=== PATIENT | male | born 1965 ===

== ENCOUNTER → 2020-09-06 15:29 | Outpatient (BNVA) | payer MEDICAID, SELFPAY | PROVIDERS: PCP Internal Medicine; Referring Provider Internal Medicine; Visit Provider Nurse Practitioner Family | DX: Z76.89 Persons encountering health services in other specified circumstances (principal) ==

== ENCOUNTER → 2020-10-07 11:03 | Outpatient (BNVA) | payer MEDICAID, SELFPAY | PROVIDERS: PCP Internal Medicine; Visit Provider Nurse Practitioner Family | DX: Z76.89 Persons encountering health services in other specified circumstances (principal) ==

== ENCOUNTER → 2020-11-03 11:01 | Outpatient (BNVA) | payer MEDICAID, SELFPAY | PROVIDERS: PCP Internal Medicine; Visit Provider Internal Medicine | DX: Z01.810 Encounter for preprocedural cardiovascular examination (principal); R06.02 Shortness of breath | CPT/HCPCS: 93005; 99202 ==

== ENCOUNTER 2020-11-17 09:16 | Outpatient (REF) | payer MEDICAID, SELFPAY ==
--- NOTE | 2020-11-17 | US_ITS ---
EXAMINATION: US ABDOMEN LIMITED CLINICAL INFORMATION: Chronic viral Hepatitis C. Hepatic fibrosis. COMPARISON: US abdomen 06/30/2020. CT abdomen and pelvis 05/04/2019. TECHNIQUE: Real-time imaging of the right upper quadrant abdominal viscera. FINDINGS: PANCREAS: Mostly obscured. LIVER: Liver echotexture is normal. The liver is normal in size and contour. No focal hepatic lesion. There is no intrahepatic biliary duct dilatation seen. GALLBLADDER: The gallbladder is physiologically distended. There are gallstones in the neck of the gallbladder.. No evidence of gallbladder wall thickening or pericholecystic fluid. COMMON BILE DUCT: Normal in caliber measuring 0.5 cm in diameter. RIGHT KIDNEY: Normal. No hydronephrosis. No renal calculi or focal parenchymal lesions. The kidney measures 10.7 cm in maximum dimension. FREE FLUID: None. US/US abdomen limited IMPRESSION: Normal-appearing liver. No focal liver lesion or evidence of cirrhosis seen. Gallstones.
== END 2020-11-17 09:17 | disposition home or self-care (01) ==
LOC: HO.US 09:16
PROVIDERS: PCP Internal Medicine; Visit Provider Family Medicine
DX: B18.2 Chronic viral hepatitis C (principal); K74.00 Hepatic fibrosis, unspecified
CPT/HCPCS: 76705

== ENCOUNTER → 2020-12-03 08:21 | Outpatient (REF) | payer MEDICAID, SELFPAY ==
--- NOTE | ~2020-12-03 | NM_ITS ---
Myocardial perfusion study Indication: Shortness of breath evaluate for myocardial ischemia Technique: The patient was brought in for a Lexiscan perfusion study on 12/03/2020. Patient performed low-level exercise and was injected 0.4 mg of Lexiscan intravenously. Within a minute of injection, 45 mCi of sestamibi was given intravenously. Images were obtained using the SPECT gamma camera interlaced with the gating device. Images were obtained in supine position. Resting perfusion study was performed on 12/07/2020. Patient was administered 45 mCi of sestamibi intravenously at rest. Images were then obtained in supine position. Images obtained with and without CT attenuation. Total DLP 114 mGy-cm. Images were processed with the software and compared side to side in short axis, horizontal long axis and vertical long axis views. Findings: The stress perfusion study showed non attenuated images show moderately reduced uptake in the inferoapical uptake in the mid inferior wall of the LV myocardium. Attenuated corrected images show mildly reduced uptake in the septum of the LV myocardium.. The gated study shows low normal LV systolic function with calculated LVEF of 53%. LV cavity is mildly dilated size. The gated study shows normal wall thickening and contraction of segments. Resting study shows improved uptake in the inferoapical wall of the LV myocardium. This is on non attenuated images. Attenuation corrected images show improved uptake in the septum of the LV.. Gating at rest reveals normal systolic wall motion with ejection fraction at 56%. The findings are consistent with equivocal finding with mild septal ischemia attenuated corrected images. NM/NM jayro perf SPECT rest & str Impression: 1. Myocardial perfusion imaging study shows possible septal ischemia 2. Gated LVEF is 56% 3. Transient ischemic dilatation present EKG is nondiagnostic for ischemia
--- NOTE | 2020-12-03 08:25 | CA_ITS ---
Transthoracic Echocardiogram Patient (Last, First, Middle): Dru Dorsey, Gender: Male Date of : 1965 Age: 55 Procedure Date: 12/03/2020 Procedure Type: Transthoracic Echocardiogram Location: OP Height: 172.72 cm Weight: 120.2 kg BSA: 2.30 m2 Heart Rate: bpm BP: 128 / 80 mmHg [employer] Att[employer]: Referring MD: Rivera Jaime MD Symptoms: I25.10 - Atherosclerotic heart disease of [place] coronary artery without angina pectoris Study Quality: Technically Difficult ECG Rhythm: Sinus Conclusions: - 1. Normal LV systolic function with mild LVH with grade 1 diastolic dysfunction 2. Normal cardiac valvular Doppler 3. Normal RV systolic pressure 4. No gross pericardial effusion Findings Left Ventricle Normal left ventricular size and systolic function. There is mildly increased left ventricular wall thickness. The visually estimated ejection fraction is between 60-65%. Regional wall motion abnormalities can not be excluded due to suboptimal endocardial definition. Spectral Doppler is indicative of an impaired relaxation filling pattern. E/E prime ratio is <8, consistent with normal filling pressures. Evidence suggests grade I (mild) diastolic dysfunction. Right Ventricle The right ventricle was not well visualized. Atria The left atrium is likely dilated. There is lipomatous hypertrophy of the interatrial septum. There is no evidence of interatrial shunt. The right atrium was not well visualized. Aortic Valve The aortic valve was not well visualized. There is no aortic valve stenosis. There is no aortic valve regurgitation. Mitral Valve Likely normal mitral valve structure and function. There is trace mitral valve regurgitation. There is no mitral valve stenosis. Pulmonic Valve The pulmonic valve was not well visualized. Tricuspid Valve Likely normal tricuspid valve structure and function. There is trace tricuspid valve regurgitation. The right ventricular systolic pressure is 22 mmHg. Normal right atrial pressure. There is no evidence of pulmonary hypertension. Great Vessels All visible segments of the aorta are normal in size. The pulmonary artery was not well visualized. Venous The inferior vena cava is normal in size and collapses greater than 50% with inspiration. Pericardium/Pleural There is no evidence of pericardial effusion. Prior Study Comparison No significant change compared to prior study dated: 02/19/2020. Measurements 2D Linear Measurements IVSd: 1.38 0.6-0.9/0.6-1.0 cm LVIDd: 5.17 3.9-5.3/4.2-5.9 cm LVIDd Index: 2.25 2.4-3.2/2.2-3.1 cm/m2 LVIDs: 3.12 2.0-3.6 cm LVPWd: 1.37 0.7-1.1 cm Ao Root: 3.30 2.1-3.5 cm LA Diam: 4.20 2.7-3.8/3.0-4.0 cm LAIDs Index: 1.83 1.5-2.3 cm/m2 LV Mass: 372.95 67-162/88-224 g LV Mass Index: 162.15 43-95/49-115 g/m2 LVOT Diam: 2.50 3.0+(-)1.3 cm 2D Systolic Function EF 4C: 61.00 >55% EF 2C: 63.00 >55% EF BiP: 61.90 >55% Mitral Valve MV Pk E: 0.61 MV PK A: 0.64 MV Decel Time: 254.00 E/A: 1.00 E'Lateral: 11.80 E'Medial: 8.41 E/E' Med: 7.20 E/E' Lat: 5.10 PHT: 74.00 MVA PHT: 2.97 Decel [place]: 2.39 Aortic Valve AoV Pk [place]: 1.66 AoV Mn [place]: 1.23 AoV VTI: 0.44 AoV Pk Grad: 11.00 Aov Mn Grad: 7.00 DUSTIN Cont.VTI: 2.36 LVOT LVOT Pk [place]: 0.93 LVOT Mn [place]: 0.72 LVOT VTI: 0.21 LVOT Pk Grad: 3.00 LVOT Mn Grad: 2.00 LVOT Diam: 2.50 LVOT Area: 4.91 Diastolic Function MV Pk E: 0.61 MV Pk A: 0.64 E/A: 1.00 E'Medial: 8.41 E/E' Med: 7.20 E' Laterial: 11.80 E/E' Lat: 5.10 Tricuspid Valve TR Pk Arn[place]fo: 2.17 TR Pk Grad: 19.00 RA Press: 3.00 RVSP: 22.00 Great Vessels Aorta Ao Root-2D: 3.30 2.0-3.7 cm Pulmonary Valve PV Pk Arnulfo: 1.22 Peak PV Grad: 6.00 Updated in Other Vendor System with Status of Final Tom Caba MD electronically signed on 12/04/2020 11:04:36 AM with status of Final
--- NOTE | 2020-12-03 08:25 | CA_ITS ---
Acquisition Time: 2020-12-03 11:25:25 Total Exercise Time: 00:02:00 Test Indications: Dyspnea Medications: GABAPENTIN HYDROXAZINE METHADONE TRAZADONE Protocol: LEXISCAN Max HR: 071 BPM 43% of Pred: 165 BPM Max BP: 130/082 mmHG Max Work Load: 1.0 METS Pharmacological stress test using Lexiscan while sitting and kicking his feeet. Pt tolerated well, denies any anginal sx. EKG without any arrhythmias, non-diagnostic for ischemia. Nuclear images to follow. Normotensive response to test. Test reviewed with Dr Caba. Referred By: Rivera Jaime Overread By: Luna Medina
== END ==
LOC: HO.CARD 08:21
PROVIDERS: Visit Provider Internal Medicine
DX: I25.10 Atherosclerotic heart disease of native coronary artery without angina pectoris (principal); R06.02 Shortness of breath
CPT/HCPCS: 78452; 93017; 93306; A9500; J0280; J2785

== ENCOUNTER → 2020-12-09 10:23 | Outpatient (BNVA) | payer MEDICAID, SELFPAY | PROVIDERS: PCP Internal Medicine; Visit Provider Internal Medicine | DX: Z01.810 Encounter for preprocedural cardiovascular examination (principal); R06.02 Shortness of breath; R94.39 Abnormal result of other cardiovascular function study | CPT/HCPCS: 99212 ==

== ENCOUNTER → 2021-01-17 14:16 | Outpatient (BNVA) | payer MEDICAID, SELFPAY | PROVIDERS: PCP Internal Medicine; Visit Provider Nurse Practitioner Family ==

== ENCOUNTER 2021-02-08 14:48 | Outpatient (REF) | payer MEDICAID, SELFPAY ==
[2021-02-08 17:02] LABS: Anion Gap 12 (12-20); Blood Urea Nitrogen 13 mg/dL (9-16); Calcium 9.7 mg/dL (8.4-10.2); Carbon Dioxide 35 mmol/L (22-29); Chloride 98 mmol/L (96-108); Estimated Glomerular Filt Rate > 60; Glucose Random 79 mg/dL (60-115); Potassium 5.4 mmol/L (3.3-5.1); Sodium 140 mmol/L (135-145)
[2021-02-09 08:14] LABS: HBc Num1 6.33 S/CO (0.00-0.79); Hepatitis A Antibody IgM 0.59 Index (0-0.79); ~HepC Num1 15.03 S/CO (0.00-0.79); ~Hepatitis A Antibody IgM Nonreactive (Nonreactive); ~Hepatitis C Antibody Reactive (Nonreactive)
[2021-02-09 08:33] LABS: Hepatitis B Surface Antigen Negative (Negative); ~Hepatitis B Surface Antibody REACTIVE (Nonreactive)
[2021-02-09 10:53] LABS: Alanine Aminotransferase 12 U/L (0-40); Albumin Level 4.5 g/dL (3.5-5.0); Alkaline Phosphatase 122 U/L (39-117); Aspartate Amino Transferase 19 U/L (5-37); Bilirubin Total 0.4 mg/dL (0.0-1.0); Total Protein 8.2 g/dL (6.5-8.0)
[2021-02-09 11:18] LABS: HBc Num2 5.87 S/CO; HBc Num3 6.23 S/CO; Hepatitis B Core Antibody Reactive (Nonreactive)
[2021-02-09 11:57] LABS: HBS Num1 77.73 mIU/mL (0-7.99); HBsAGNum1 0.26 S/CO (0.00-0.99)
== END 2021-02-08 14:49 | disposition home or self-care (01) ==
LOC: HO.LAB 14:48
PROVIDERS: Internal Medicine; PCP Internal Medicine; Visit Provider Nurse Practitioner Family
DX: K59.00 Constipation, unspecified (principal); R14.0 Abdominal distension (gaseous); B19.20 Unspecified viral hepatitis C without hepatic coma; R94.39 Abnormal result of other cardiovascular function study; F17.210 Nicotine dependence, cigarettes, uncomplicated; Z88.0 Allergy status to penicillin; Z96.643 Presence of artificial hip joint, bilateral
CPT/HCPCS: 36415; 80048; 80053; 86704; 86705; 86706; 86709; 86803; 87340; 99212

== ENCOUNTER → 2021-02-28 10:39 | Outpatient (BNVA) | payer MEDICAID, SELFPAY | PROVIDERS: PCP Internal Medicine; Visit Provider Internal Medicine | DX: Z01.810 Encounter for preprocedural cardiovascular examination (principal); R94.39 Abnormal result of other cardiovascular function study; Q24.5 Malformation of coronary vessels | CPT/HCPCS: 99212 ==

== ENCOUNTER → 2021-03-01 15:11 | Outpatient (BNVA) | payer MEDICAID, SELFPAY | PROVIDERS: PCP Internal Medicine; Visit Provider Nurse Practitioner Family ==

== ENCOUNTER → 2021-03-29 11:27 | Outpatient (BNVA) | payer MEDICAID, SELFPAY | PROVIDERS: PCP Internal Medicine; Visit Provider Nurse Practitioner Family ==

== ENCOUNTER 2022-07-06 09:22 | Outpatient (REF) | payer MEDICAID, SELFPAY ==
--- NOTE | 2022-07-06 | PFT_ITS ---
Forced vital capacity 69%, FEV1 69%, FEV1/FVC ratio is 77. [id number] 63%, and MVV 65%. Post bronchodilator therapy, there is no significant change. Total lung capacity 87%. Residual volume 112%. Diffusion capacity 81%. CONCLUSION: The flow volumes were moderately decreased, but there is no evidence of obstructive airway disorder. The lung volumes are relatively normal and diffusion capacity is normal. Clinical correlation is recommended. MD LOU Frankel/JULIO / [id number]
== END 2022-07-06 09:23 | disposition home or self-care (01) ==
LOC: HO.RESP 09:22
PROVIDERS: PCP Internal Medicine; Visit Provider Internal Medicine
DX: J44.9 Chronic obstructive pulmonary disease, unspecified (principal)
CPT/HCPCS: 94060; 94727; 94729

== ENCOUNTER 2022-09-08 14:14 | Outpatient (REF) | payer MEDICAID, SELFPAY ==
[2022-09-08 14:35] LABS: Hematocrit 40.5 % (42.0-52.0); Mean Corpuscular HGB Conc 32.1 g/dl (31.0-36.0); Mean Corpuscular Hemoglobin 28.9 pg (27.0-33.0); Mean Platelet Volume 9.7 fL (9.4-12.4); Platelet Count 267 X10*3/uL (160-400); Red Cell Distribution Width 14.2 % (11.0-16.0); White Blood Count 8.8 X10*3/uL (4.8-10.8)
[2022-09-08 15:26] LABS: Alanine Aminotransferase 13 U/L (0-40); Albumin Level 4.5 g/dL (3.5-5.0); Alkaline Phosphatase 77 U/L (39-117); Anion Gap 13 (12-20); Aspartate Amino Transferase 17 U/L (5-37); Bilirubin Total 0.3 mg/dL (0.0-1.0); Blood Urea Nitrogen 14 mg/dL (9-16); Calcium 10.1 mg/dL (8.4-10.2); Carbon Dioxide 34 mmol/L (22-29); Chloride 101 mmol/L (96-108); Estimated Glomerular Filt Rate > 60; Glucose Random 79 mg/dL (60-115); Lipase 18 U/L (8-78); Sodium 143 mmol/L (135-145); TSH reflex Free T4 1.65 uIU/mL (0.32-4.0); Total Protein 7.7 g/dL (6.5-8.0)
== END 2022-09-08 14:15 | disposition home or self-care (01) ==
LOC: HO.LAB 14:14
PROVIDERS: PCP Internal Medicine; Visit Provider Nurse Practitioner Family
DX: K21.9 Gastro-esophageal reflux disease without esophagitis (principal); R10.9 Unspecified abdominal pain; K59.00 Constipation, unspecified
CPT/HCPCS: 36415; 80053; 83690; 84443; 85027; 99212

== ENCOUNTER 2022-10-27 14:20 | Outpatient (REF) | payer MEDICAID, SELFPAY ==
--- NOTE | ~2022-10-27 | CT_ITS ---
EXAMINATION: CT CHEST SCREENING CLINICAL INFORMATION: Nicotine dependence. COMPARISON: None. TECHNIQUE: Multidetector volumetric CT imaging of the chest is performed without contrast using low dose technique. Additional 2D coronal and sagittal reformatted images and axial 3D maximum intensity projection (MIP) images are generated on the CT workstation. This CT examination was performed using dose optimization techniques as appropriate, variously including the following: *Automated exposure control *Adjustment of mA and/or kV according to patient size (this includes techniques or standardized protocols for targeted exams where dose is matched to indication/reason for exam; i.e. extremities or head) *Use of iterative reconstruction technique DLP: 85 mGy-cm FINDINGS: LUNGS: The lungs are well-expanded and clear of acute process. There is a 1.1 x 1.2 cm lesion left upper lobe adjacent to the major fissure on axial image 41/9. No additional lung nodules visualized. There is no acute pneumonic process. MEDIASTINUM: The thyroid lobes are symmetrical and normal. The central trachea and the bronchi are widely patent. The heart size and great vessels are normal caliber. No pericardial effusion seen. Small shotty lymph nodes are seen in the mediastinum, the largest pretracheal short axis lymph node measures 6 mm. CORONARY ARTERY CALCIFICATION: Trace coronary artery calcifications are seen. PLEURA: There is no pleural effusion. No pleural mass or thickening. AXILLA: There are small shotty bilateral axillary lymph nodes. UPPER ABDOMEN: Visualized liver, spleen and pancreas appear unremarkable. OSSEOUS STRUCTURES: Bone Windows: Moderate ventral spondylosis throughout mid and lower dorsal spine. CT/CT lung screening IMPRESSION: Left upper lobe 1.2 cm nodule. ASSESSMENT: Lung-RADS category 4A: Suspicious RECOMMENDATION: PET/CT or tissue sampling.
== END 2022-10-27 14:21 | disposition home or self-care (01) ==
LOC: HO.CT 14:20
PROVIDERS: PCP Internal Medicine; Visit Provider Physician Assistant Medical
DX: Z12.2 Encounter for screening for malignant neoplasm of respiratory organs (principal); F17.210 Nicotine dependence, cigarettes, uncomplicated
CPT/HCPCS: 71271; G0296

== ENCOUNTER → 2022-11-24 09:26 | Outpatient (BNVA) | payer MEDICAID, SELFPAY | PROVIDERS: PCP Internal Medicine; Visit Provider Surgery | DX: R91.1 Solitary pulmonary nodule (principal); F17.210 Nicotine dependence, cigarettes, uncomplicated | CPT/HCPCS: 99202 ==

== ENCOUNTER 2022-11-27 14:59 | Outpatient (REF) | payer MEDICAID, SELFPAY ==
--- NOTE | 2022-11-27 17:25 | PFT_ITS ---
Forced vital capacity 64%, FEV1 57%, FEV1/FVC ratio is 69. FEF 25/75 33% and MVV 60%. Post bronchodilator therapy, there is some improvement in FEF 25-75, but not in the major of flow volumes. Total lung capacity 85%. Residual volume 135%. Diffusion capacity 86%. CONCLUSION: Moderately severe obstructive airway disorder with evidence of some air trapping. There is only minimal response to bronchodilator therapy. Clinical correlation is recommended. Joey Velasco MD MSB/MODL / [id number]
== END 2022-11-27 15:00 | disposition home or self-care (01) ==
LOC: HO.RESP 14:59
PROVIDERS: Visit Provider Surgery
DX: R91.1 Solitary pulmonary nodule (principal)
CPT/HCPCS: 94060; 94727; 94729

== ENCOUNTER → 2022-12-05 14:12 | Outpatient (BNVA) | payer MEDICAID, SELFPAY | PROVIDERS: PCP Internal Medicine; Visit Provider Internal Medicine | DX: Z01.810 Encounter for preprocedural cardiovascular examination (principal); I25.10 Atherosclerotic heart disease of native coronary artery without angina pectoris; Q24.5 Malformation of coronary vessels | CPT/HCPCS: 93005; 99212 ==

== ENCOUNTER → 2022-12-22 10:37 | Outpatient (BNVA) | payer MEDICAID, SELFPAY | PROVIDERS: PCP Internal Medicine; Visit Provider Surgery | DX: R91.1 Solitary pulmonary nodule (principal); F17.210 Nicotine dependence, cigarettes, uncomplicated; Z79.891 Long term (current) use of opiate analgesic | CPT/HCPCS: 99212 ==

== ENCOUNTER → 2023-01-16 10:42 | Outpatient (BNVA) | payer MEDICAID, SELFPAY | PROVIDERS: PCP Registered Nurse; Visit Provider Hospitalist | DX: C34.90 Malignant neoplasm of unspecified part of unspecified bronchus or lung (principal); J44.9 Chronic obstructive pulmonary disease, unspecified; R06.02 Shortness of breath; F17.210 Nicotine dependence, cigarettes, uncomplicated; Z79.891 Long term (current) use of opiate analgesic | CPT/HCPCS: 99202 ==

== ENCOUNTER 2023-01-17 15:34 | Emergency (ER) | payer MEDICAID, SELFPAY ==
--- NOTE | ~2023-01-17 | CT_ITS ---
EXAMINATION: CT ANGIOGRAM OF THE CHEST WITH AND WITHOUT CONTRAST (CT PULMONARY ANGIOGRAM FOR PE) CLINICAL INFORMATION: Reason for Exam known lung ca. post op biopsy. 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 Subsequently, multidetector volumetric imaging was performed from the thoracic inlet to below the diaphragms following the administration of 65 mL Omnipaque 350 intravenous contrast. No contrast reaction reported Sagittal, coronal, and MIP oblique sagittal reformatted images were obtained on the CT workstation, uploaded to PACS, and reviewed. This CT examination was performed using dose optimization techniques as appropriate, variously including the following: *Automated exposure control *Adjustment of mA and/or kV according to patient size (this includes techniques or standardized protocols for targeted exams where dose is matched to indication/reason for exam; i.e. extremities or head) *Use of iterative reconstruction technique Total exam dose-length product 622 mGy-cm FINDINGS: QUALITY OF STUDY/CONTRAST BOLUS: Satisfactory. PULMONARY ARTERIES: No central or segmental pulmonary emboli. THORACIC AORTA: No aneurysm or dissection. LUNG: There is small volume of fluid tracking along the left major fissure and around left hilum and the left upper lobe consistent with history of biopsy. There is linear dense material at the left hilum consistent with biopsy. There are scattered groundglass airspace opacities in both upper lobes. There is dependent atelectasis at the left lung base. PLEURA: Small volume left-sided hydropneumothorax. Air in the subcutaneous tissues of the left side of the chest and upper abdomen. Findings consistent with recent lung biopsy. MEDIASTINUM: Normal heart size. Trace pericardial effusion. No hilar or mediastinal lymphadenopathy. No evidence of septal bowing or right heart strain. CORONARY ARTERY CALCIFICATION: None visualized on this study. CHEST WALL/AXILLA: No axillary or internal mammary lymphadenopathy. OSSEOUS STRUCTURES: No acute or suspicious osseous abnormality. UPPER ABDOMEN: Unremarkable. No reflux of contrast into the hepatic veins to suggest elevated right heart pressures. CT/CT angio chest PE protocol IMPRESSION: 1. No evidence of pulmonary embolism. 2. Small volume left-sided hydropneumothorax. Air in the subcutaneous tissues of the left side of the chest and upper abdomen consistent with recent lung biopsy. 3. Small volume of fluid tracking along the left major fissure and around the left hilum. 4. Scattered groundglass airspace opacities in both upper lobes. Dependent atelectasis at left lung base VTE: negative
[2023-01-17 15:47] VITALS: BP 190/92; PULSE 82; O2SAT 92
[2023-01-17 15:57] VITALS: BP 144/80; PULSE 78; RESP 25; TEMP 36.7; O2SAT 93; BMI 46.6
--- NOTE | 2023-01-17 16:11 | ECG_ITS ---
Test Reason : difficulty breathing Blood Pressure : / mmHG Vent. Rate : 077 BPM Atrial Rate : 077 BPM P-R Int : 176 ms QRS Dur : 090 ms QT Int : 414 ms P-R-T Axes : 048 015 026 degrees QTc Int : 468 ms Normal sinus rhythm Normal ECG When compared with ECG of 15-AUG-2019 19:20, No significant change was found Referred By: Esau Ramos Electronically Signed By:LEXIE SHEEHAN
--- NOTE | 2023-01-17 16:14 | ED_ITS ---
HPI - General Adult General Chief complaint: Dyspnea Stated complaint: UNRESPONSIVE,OD Time Seen by Provider: 01/17/23 15:53 Source: patient History of Present Illness HPI narrative: Patient is several days postop from lung biopsy secondary to known lung cancer. He presents today because he went to his PCP office and was having dyspnea with chest pain with hypertension. EMS found patient to have a respiratory rate of 25 with an oxygen saturation of 90. He was given a DuoNeb with some improvement. Patient's main complaint here in the emergency department is pain on the left side of his chest. He states it is stabbing and worse with breathing. He denies fevers or chills. Positive cough but no sputum. She saw his thoracic surgeon yesterday for a postoperative check and there were no issues during that visit. Related Data Home Medications Medication Instructions Recorded Confirmed gabapentin 100 mg capsule 100 mg PO TID 09/06/20 12/22/22 methadone 10 mg/mL oral syringe 90 mg PO DAILY 09/06/20 12/22/22 (FOR ORAL USE ONLY) trazodone 100 mg tablet 100 mg PO BEDTIME PRN 09/06/20 12/22/22 hydroxyzine HCl 50 mg tablet 50 mg PO BID 11/03/20 12/22/22 acetaminophen 325 mg tablet 325 mg PO QID PRN 01/16/23 bupropion HCl 300 mg 24 hr tablet, 300 mg PO QAM 01/16/23 extended release (Wellbutrin XL) docusate sodium 100 mg capsule 100 mg PO BID 01/16/23 duloxetine 60 mg capsule,delayed 60 mg PO DAILY 01/16/23 release famotidine 20 mg tablet 20 mg PO DAILY 01/16/23 nicotine 14 mg/24 hr daily 1 patch transdermal DAILY 01/16/23 transdermal patch oxycodone 5 mg tablet 5 mg PO Q8H PRN 01/16/23 Previous Rx's Medication Instructions Recorded sennosides 8.6 mg tablet 17.2 mg PO BEDTIME #180 tabs 09/08/22 (Evac-U-Gen (sennosides)) rosuvastatin 10 mg tablet (Crestor) 10 mg PO DAILY #90 tabs 12/05/22 fluticasone fur. 200 mcg-umeclid 1 inh inhalation DAILY 30 days #60 01/16/23 62.5 mcg-vilant 25 mcg ea inhalat.powder (Trelegy Ellipta) nicotine (polacrilex) 2 mg gum 2 mg buccal Q2H 30 days #50 ea 01/16/23 (Nicorette) levofloxacin 500 mg tablet 500 mg PO DAILY #10 tabs 01/17/23 Allergies Allergy/AdvReac Type Severity Reaction Status Date / Time Penicillins [PENICILLINS] Allergy Unknown UNKNOWN Verified 01/17/23 15:56 Review of Systems Constitutional: Comments: No fevers or chills Cardiovascular: Comments: Left-sided chest pain as mentioned Respiratory: Comments: Dyspnea with cough Gastrointestinal: Comments: No abdominal pain. No nausea vomiting or diarrhea Genitourinary: Genitourinary: Reports no additional male genitourinary complaints Musculoskeletal: Musculoskeletal: Reports no additional musculoskeletal complaints Neurologic: Comments: No focal weakness PMFSH Past Medical History Medical History (Updated 01/17/23 @ 20:02 by Esau Ramos MD) Asthma-COPD overlap syndrome Depression with anxiety Hepatitis C History of CVA (cerebrovascular accident) (~2008) HLD (hyperlipidemia) Lung cancer Methadone maintenance therapy patient Nicotine dependence, cigarettes, uncomplicated Obesity DA (obstructive sleep apnea) Surgical History History of bilateral hip replacements History of carpal tunnel surgery History of colonoscopy History of esophagogastroduodenoscopy (EGD) History of left inguinal hernia repair Family History Family History Father No problems noted. Mother Family history of high blood pressure Hx of diabetes insipidus Social History Social History Household Members: None Alcohol intake: former Patient Tobacco Use Status: Current everyday Tobacco user Tobacco use type: Cigarette Cigarettes Per Day: 5 Years Smoked: (onset 13yo, 1ppd x 44yrs, now 3/4ppd, 40pyh) Smoked in Last 30 Days: Yes Use of substances other than those prescribed or required for medical reasons: No Advance Directives: No Advance Directives Information Provided: No Current occupational status: disabled Physical Exam ED Vital Signs: Vital Signs - 24 hr 01/17/23 15:57 01/17/23 18:28 Temperature 98.0 F 98.3 F Pulse Rate 78 73 Respiratory Rate 25 H 18 Blood Pressure 144/80 H 159/75 H Pulse Oximetry 93 95 Oxygen Delivery Method Nasal Cannula Nasal Cannula Oxygen Flow Rate 3 BMI result Body Mass Index 46.6 Const Other: Awake alert in no acute distress Chest Other: Examination of chest shows left side with diffuse ecchymosis and several 2 cm surgical wounds. There is no surrounding erythema or purulence drainage or evidence of infection. No active bleeding. Resp Other: Significantly diminished bilaterally without rales or rhonchi Cardio Other: Regular rate and rhythm without murmurs rubs or gallops GI Other: Soft nontender nondistended Skin Other: Warm pink and dry. Skin findings as mentioned above left chest wall Neuro Other: Nonfocal neuro exam Medications Administered Discontinued Medications Generic Name Dose Route Start Last Admin Trade Name Jacquesq PRN Reason Stop Dose Admin Hydromorphone HCl 1 mg 01/17/23 16:16 01/17/23 16:27 Hydromorphone Hcl 1 Mg/Ml Syringe IVPUSH 01/17/23 16:17 1 mg ONCE ONE Administration Protocol Iohexol 100 ml 01/17/23 17:36 01/17/23 17:36 Iohexol 350 Mg/Ml 100 Ml Infus..Btl IV 01/17/23 17:37 65 ml ONCE ONE Administration Methylprednisolone Sodium Succinate 125 mg 01/17/23 16:11 01/17/23 16:27 Methylprednisolone Sod Succ 125 Mg/2 Ml Vial IVPUSH 01/17/23 16:12 125 mg ONCE ONE Administration Medical Decision Making Medical Decision Making MDM Narrative: Patient with postoperative pain with known lung cancer. I can certainly be postsurgical pain. Intrathoracic infection or pulmonary embolism or pneumonia are also possible especially giving pre-hospital hypoxia. Will order CT scan, CT angiography Await labs in EKG. 19:59. CBC shows elevated white count [id number]. Chemistries are normal. CT scan of the chest shows normal postop findings. No evidence of abscess. It does show some upper lobe ground-glass opacities. Given white count, in conjunction with transient hypoxia, will start patient on antibiotic course. Levaquin. Follow-up with Thoracic surgery Lab Data 01/17/23 16:47 01/17/23 16:47 Labs: Lab Results 01/17/23 01/17/23 01/17/23 Range/Units 16:47 16:47 16:47 WBC 13.4 H (4.8-10.8) X10*3/uL RBC 3.49 L D (4.60-5.80) X10*6/uL Hgb 10.1 L D (14.0-18.0) g/dl Hct 30.8 L D (42.0-52.0) % MCV 88.3 (80.0-98.0) fL MCH 28.9 (27.0-33.0) pg MCHC 32.8 (31.0-36.0) g/dl RDW 13.6 (11.0-16.0) % Plt Count 279 (160-400) X10*3/uL MPV 9.2 L (9.4-12.4) fL Immature Gran % (Auto) 1.1 H (0.0-0.4) % Neut % (Auto) 69.3 (45-73) % Lymph % (Auto) 21.1 (20-40) % [place] % (Auto) 6.0 (2-11) % Eos % (Auto) 2.3 (0-4) % Baso % (Auto) 0.2 (0-2) % Lymph # (Auto) 2.8 (1.2-4.9) X10*3/uL [place] # (Auto) 0.8 (0.1-1.2) X10*3/uL Eos # (Auto) 0.3 (0.0-0.4) X10*3/uL Baso # (Auto) 0.0 (0.0-0.2) X10*3/uL Abs Immat Gran (auto) 0.15 H (0.00-0.03) X10*3/uL Absolute Neuts (auto) 9.3 H (2.0-8.3) x10*3/uL Absolute Nucleated RBC 0.000 (0.0-0.012) X10*3/uL Nucleated RBC % (auto) 0.0 (0.0-0.2) /100WBC Sodium 139 (135-145) mmol/L Potassium 3.9 D (3.3-5.1) mmol/L Chloride 101 (96-108) mmol/L Carbon Dioxide 27 (22-29) mmol/L Anion Gap 15 (12-20) BUN 11 (9-16) mg/dL Creatinine 1.07 (0.5-1.4) mg/dL Estim Creat Clear Calc 100.9 Estimated GFR > 60 Random Glucose 103 (60-115) mg/dL Lactic Acid 0.9 (0.5-2.0) mmol/L Calcium 8.5 D (8.4-10.2) mg/dL Total Bilirubin 0.7 (0.0-1.0) mg/dL AST 27 (5-37) U/L ALT 35 (0-40) U/L Alkaline Phosphatase 77 (39-117) U/L Total Protein 6.4 L (6.5-8.0) g/dL Albumin 3.7 (3.5-5.0) g/dL Discharge Plan Discharge Clinical Impression: Pneumonia Patient Disposition: Home, Self-Care Instructions: Pneumonia (ED) Additional Instructions: Follow-up with your thoracic surgeon as scheduled Prescriptions: New levofloxacin 500 mg tablet 500 mg PO DAILY Qty: 10 0RF No Action gabapentin 100 mg capsule 100 mg PO TID trazodone 100 mg tablet 100 mg PO BEDTIME PRN methadone 10 mg/mL syringe 90 mg PO DAILY hydroxyzine HCl 50 mg tablet 50 mg PO BID sennosides [Evac-U-Gen (sennosides)] 8.6 mg tablet 17.2 mg PO BEDTIME Qty: 180 2RF acetaminophen 325 mg tablet 325 mg PO QID PRN docusate sodium 100 mg capsule 100 mg PO BID famotidine 20 mg tablet 20 mg PO DAILY duloxetine 60 mg capsule,delayed release(DR/EC) 60 mg PO DAILY bupropion HCl [Wellbutrin XL] 300 mg tablet extended release 24 hr 300 mg PO QAM nicotine 14 mg/24 hr patch 24 hour 1 patch transdermal DAILY oxycodone 5 mg tablet 5 mg PO Q8H PRN Trelegy Ellipta 200-62.5-25 mcg blister with device 1 inh inhalation DAILY 30 Days Qty: 60 12RF nicotine (polacrilex) [Nicorette] 2 mg gum 2 mg buccal Q2H 30 Days Qty: 50 3RF rosuvastatin [Crestor] 10 mg tablet 10 mg PO DAILY Qty: 90 3RF
[2023-01-17] MEDS: methylPREDNISolone Sod Succ 125 MG/2 ML VIAL IVPUSH (16:27)
[2023-01-17] MEDS: HYDROmorphone HCl 1 MG/ML SYRINGE IVPUSH (16:27)
[2023-01-17 16:52] LABS: MANUAL DIFF FLAG NO
[2023-01-17 16:53] LABS: Basophils Percent Auto 0.2 % (0-2); Eosinophils Absolute Auto 0.3 X10*3/uL (0.0-0.4); Eosinophils Percent Auto 2.3 % (0-4); Hematocrit 30.8 % (42.0-52.0); Hemoglobin 10.1 g/dl (14.0-18.0); Imm Gran Abs Auto 0.15 X10*3/uL (0.00-0.03); Imm Gran Pct Auto 1.1 % (0.0-0.4); Lymphocytes Absolute Auto 2.8 X10*3/uL (1.2-4.9); Lymphocytes Percent Auto 21.1 % (20-40); Mean Corpuscular HGB Conc 32.8 g/dl (31.0-36.0); Mean Corpuscular Hemoglobin 28.9 pg (27.0-33.0); Mean Corpuscular Volume 88.3 fL (80.0-98.0); Mean Platelet Volume 9.2 fL (9.4-12.4); Monocytes Absolute Auto 0.8 X10*3/uL (0.1-1.2); Neutrophils Absolute Auto 9.3 x10*3/uL (2.0-8.3); Neutrophils Percent Auto 69.3 % (45-73); Platelet Count 279 X10*3/uL (160-400); Red Blood Count 3.49 X10*6/uL (4.60-5.80); Red Cell Distribution Width 13.6 % (11.0-16.0); White Blood Count 13.4 X10*3/uL (4.8-10.8)
[2023-01-17 17:09] LABS: Lactic Acid 0.9 mmol/L (0.5-2.0)
[2023-01-17 17:14] LABS: Alanine Aminotransferase 35 U/L (0-40); Albumin Level 3.7 g/dL (3.5-5.0); Alkaline Phosphatase 77 U/L (39-117); Anion Gap 15 (12-20); Aspartate Amino Transferase 27 U/L (5-37); Bilirubin Total 0.7 mg/dL (0.0-1.0); Blood Urea Nitrogen 11 mg/dL (9-16); Calcium 8.5 mg/dL (8.4-10.2); Carbon Dioxide 27 mmol/L (22-29); Chloride 101 mmol/L (96-108); Creatinine Clr Calc Pharmacy 100.9; Estimated Glomerular Filt Rate > 60; Glucose Random 103 mg/dL (60-115); Potassium 3.9 mmol/L (3.3-5.1); Sodium 139 mmol/L (135-145); Total Protein 6.4 g/dL (6.5-8.0)
[2023-01-17] MEDS: iohexoL 350 MG/ML 100 ML INFUS..BTL IV (17:36)
[2023-01-17 18:28] VITALS: BP 159/75; PULSE 73; RESP 18; TEMP 36.8; O2SAT 95
== END 2023-01-17 20:45 | disposition home or self-care (01) ==
PROVIDERS: Emergency Provider Emergency Medicine
DX: J18.9 Pneumonia, unspecified organism (principal); R06.02 Shortness of breath; F17.210 Nicotine dependence, cigarettes, uncomplicated; Z71.6 Tobacco abuse counseling; Z79.899 Other long term (current) drug therapy
CPT/HCPCS: 36415; 71275; 80053; 83605; 85025; 87040; 93005; 96374; 96375; 99284; 99285; J1170; J2930; Q9967

== ENCOUNTER → 2023-02-02 09:32 | Outpatient (BNV) | payer MEDICAID, SELFPAY | PROVIDERS: PCP Registered Nurse; Visit Provider Internal Medicine | DX: C34.12 Malignant neoplasm of upper lobe, left bronchus or lung (principal) | CPT/HCPCS: 99204; 99214; 99215 ==

== ENCOUNTER 2023-02-21 10:37 | Inpatient (IN) | payer MEDICAID, SELFPAY ==
[2023-02-21] VITALS (7 sets, daily range): BP systolic 138–170; BP diastolic 74–92; PULSE 52–68; RESP 11–22; TEMP 36.5–36.6; O2SAT 94–97; BMI 26.3; BMI 42.8
--- NOTE | ~2023-02-21 | CT_ITS ---
EXAMINATION: CT CHEST ANGIOGRAM PE PROTOCOL CLINICAL INFORMATION: , Reason for Exam h.o cancer, hypoxia, cp COMPARISON: None TECHNIQUE: Volumetric imaging was performed through the chest. Reformatted coronal and sagittal imaging was performed. 3-D MIP images performed at a dedicated separate workstation. This CT examination was performed using dose optimization techniques as appropriate, variously including the following: *Automated exposure control *Adjustment of mA and/or kV according to patient size (this includes techniques or standardized protocols for targeted exams where dose is matched to indication/reason for exam; i.e. extremities or head) *Use of iterative reconstruction technique CONTRAST: 65 mL Omnipaque 350 injected DLP: 793 FINDINGS: PULMONARY ARTERIES: Exam is limited by low [id number]-iwkvh ratio. There are small filling defects in branches of the right pulmonary artery to the middle lobe and right lower lobe, and nonopacification of a branch of left pulmonary artery to left upper lobe concerning for small emboli. No large saddle embolus. No evidence of cardiac strain. No pulmonary infarct. LINES/TUBES: None LUNGS: Lung Parenchyma: Redemonstration of fat airspace patchy opacities in the lung laurent bilaterally especially upper lobes some of which is slightly more dense compared with the recent CT from December 2022 others has cleared. Lung Nodules:There is left suprahilar soft tissue opacity roughly 4.1 x 2.6 cm, concerning for possible patient's known neoplasm, this has not changed. Peripheral 4 subsegmental atelectasis which extend to lingula base is stable. AIRWAYS: Trachea and bronchi are normal. PLEURA: Residual small left pleural effusion, most of the pleural effusion and pneumothorax seen on prior CT resolved. MEDIASTINUM AND GINA: The visualized thyroid gland is unremarkable. No mediastinal, hilar or axillary lymphadenopathy. There is no mediastinal mass. VESSELS: Thoracic aorta is normal in size. HEART AND PERICARDIUM: Heart is normal in size. There is no pericardial effusion. There are coronary calcifications. CHEST WALL, LOWER NECK, SURROUNDING SOFT TISSUES: Normal VISUALIZED ABDOMEN: Unremarkable BONES: Not fully healed old lateral left rib fractures. CT/CT angio chest PE protocol IMPRESSION: * Exam is limited by low eiezgs-mo-zhrji ratio. * Positive PE, There are small filling defects in branches of the right pulmonary artery to the middle lobe and right lower lobe, Tamez image, and nonopacification of a branch of left pulmonary artery to left upper lobe concerning for small emboli. No large saddle embolus. No cardiac strain. No pulmonary infarct. * Residual small left pleural effusion, most of the pleural effusion and pneumothorax seen on prior CT from December 2022 has resolved. * Redemonstration of left suprahilar soft tissue opacity concerning for patient's known neoplasm, this has not changed. * Redemonstration of patchy airspace opacities especially upper lobes some of which are slightly more dense compared with the recent CT from December 2022 others have cleared. (Referring physician staff is being called, by physician staff assistance, to be alerted of the above critical findings and recommendations.) Lynda Aiken 02/21/2023 6:00 PM
--- NOTE | ~2023-02-21 | US_ITS ---
EXAMINATION: Ultrasound duplex arterial and venous study/retroperitoneum TECHNIQUE: Positive PE. COMPARISON: CTA chest performed earlier today. TECHNIQUE: Limited imaging of IVC was performed. The exam is limited secondary to patient's body habitus and overlying bowel FINDINGS: There is a widely patent IVC. FINDINGS: The IVC is widely patent with no thrombus seen however limited. Recommend repeat CTA chest for better evaluation of pulmonary arteries as the previous CTA chest is limited. Also the IVC and bilateral lower extremity venous study are negative for thrombus or DVT.
--- NOTE | ~2023-02-21 | XR_ITS ---
EXAMINATION: XR CHEST CLINICAL INFORMATION: Chest pain. COMPARISON: 10/14/2019 chest radiographs and chest CTA dated 01/17/2023 TECHNIQUE: 2 views of the chest were obtained. FINDINGS: Postsurgical changes are again seen in the left upper lobe suprahilar region. The lungs are otherwise clear. The heart and mediastinal structures are unremarkable. XR/XR chest 2V IMPRESSION: Postsurgical changes in the left upper lobe correlating with previous CTA findings. Overall appearance is improved compared to that study. No overt acute abnormality.
--- NOTE | ~2023-02-21 | US_ITS ---
EXAMINATION: US VENOUS ULTRASOUND WITH DOPPLER LOWER EXTREMITY, BILATERAL CLINICAL INFORMATION: Positive PE on CT chest COMPARISON: None available. TECHNIQUE: Ultrasound of the deep veins is performed from the hip to the calf with compression sonography and color and pulse Doppler assessment. Spectral analysis with color-flow imaging is performed. FINDINGS: The exam is limited due to patient's body habitus and unable to tolerate compression. RIGHT: There is normal venous compression and respiratory variation and augmented flow. The visualized common femoral vein, superficial femoral vein, profunda femoral vein, popliteal vein, and the trifurcation region shows no evidence of deep venous thrombosis. There is no significant popliteal fossa cyst. Peroneal vein is not seen LEFT: There is normal venous compression and respiratory variation and augmented flow. The visualized common femoral vein, superficial femoral vein, profunda femoral vein, popliteal vein, and the trifurcation region shows no evidence of deep venous thrombosis. There is no significant popliteal fossa cyst. Peroneal vein is not seen. If the patient's symptoms persist, followup ultrasound in 5 days 7 days might be of value to exclude proximal propagation from a non-visualized calf vein. US/US venous duplex LE BI IMPRESSION: No DVT demonstrated in the bilateral lower extremity.
--- OUTSIDE RECORDS SUMMARY | 2023-02-21 10:45 | XMS_ITS | Continuity of Care Document ---
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 Role Phone Reanna PERSON, Morena Berg Primary Care Physicia n Encounter [facility] Date(s): 02/06/23 - 02/06/[address] [address]- Discharge Disposition: A-D/C Home Attending Physician: Oj Mojica MD Admitting Physician: Oj Mojica MD Referring Physician: Not on Staff, Referring MD Allergies, Adverse Reactions, Alerts Substance Reaction Severity Status penicillins Active Topical Skin Adhesive Active Immunizations Given and Recorded Vaccine Date Status Refusal Reason tetanus/diphtheria/pertussis, acel(Tdap) 03/12/15 Given Not Given Vaccine Date Status Refusal Reason influenza virus vaccine, inactivated 1 07/22/15 No t Given Patient Refuses pneumococcal 23-valent vaccine 07/19/15 Not Given Patient Refuses pneumococcal 23-valent vaccine 07/03/15 Not Given Patient Refuses 1Result Note: will see own pcp for this Medications Acetaminophen = 1,000 mg, By Mouth, 3 times a day, 0 Refills, Maintenance, 11/21/19 19:23:00 EST Start Date: 11/21/19 Status: Ordered Azithromycin 5 Day Dose Pack 250 mg oral tablet 1 pack/packet, By Mouth, Once, # 6 tablet, 0 Refills, Soft Stop, 02/24/20 11:34:00 EDT, Tablet, [id number], 170, cm, 11/21/19 19:17:00 EST, Height, 90, kg, 11/21/19 19:17:00 EST, Dry Weight Start Date: 02/24/20 Status: Ordered chantix chantix, Refills 0, Maintenance, 03/15/21 13:31:00 EDT, Supply Start Date: 03/15/21 Status: Ordered dexamethasone 1 mg oral tablet 1 tablet = 1 mg, By Mouth, Once, Take at 11 PM , go for lab work next am at 8 am, # 1 tablet, 0 Refills, Soft Stop, 02/01/22 13:59:00 EDT, Tablet, [id number], Partial fill upon patient request if the prescription is for a sched... Start Date: 02/01/22 Status: Ordered Dilaudid Inj 1 mg, Injection, IV Push Slowly, Once, STAT, 02/06/23 20:43:00 EDT, Stop date 02/06/23 20:43:00 EDT Start Date: 02/06/23 Stop Date: 02/06/23 Status: Completed duloxetine 60 mg oral enteric coated capsule 1 capsule = 60 mg, By Mouth, Daily, 0 Refills, Maintenance, 01/12/22 8:57:00 EDT, Partial fill uponpatient request if the prescription is for a schedule II opioid drug. Start Date: 01/12/22 Status: Ordered gabapentin 600 mg oral tablet = 600 mg, 3 times a day, 0 Refills, Maintenance, 11/21/19 19:22:00 EST Start Date: 11/21/19 Status: Ordered hydrOXYzine hydrochloride 50 mg oral tablet 1 tablet = 50 mg, By Mouth, 2 times a day, PRN for anxiety, # 40 tablet, 0 Refills, Maintenance, 01/12/22 8:57:00 EDT, Tablet, Partial fill upon patient request if the prescription is for a schedule II opioid drug. Start Date: 01/12/22 Status: Ordered ibuprofen 600 mg oral tablet 600 mg, 1, tablet, By Mouth, Every 6 hours, Refills 0, Maintenance, 11/21/19 19:24:00 EST Start Date: 11/21/19 Status: Ordered Lidoderm 5% film Topically, Daily, 0 Refills, Maintenance, 01/12/22 8:58:00 EDT, Partial fill upon patient request if the prescription is for a schedule II opioid drug. Start Date: 01/12/22 Status: Ordered methadone 10 mg oral tablet 9 tablet = 90 mg, By Mouth, Daily, 0 Refills, Maintenance, 02/15/21 11:53:00 EDT, Partial fill uponpatient request if the prescription is for a schedule II opioid drug. Start Date: 02/15/21 Status: Ordered nicotine 21 mg/24 hr transdermal film, extended release 1 patch, Daily, 0 Refills, Maintenance, 11/21/19 19:27:00 EST Start Date: 11/21/19 Status: Ordered ProAir HFA 90 mcg/inh inhalation aerosol 2 puffs, Inhalation, Every 6 hours, 0 Refills, Maintenance, 01/12/22 9:00:00 EDT, Partial fill uponpatient request if the prescription is for a schedule II opioid drug. Start Date: 01/12/22 Status: Ordered traZODone 150 mg oral tablet 1 tablet = 150 mg, By Mouth, Daily at bedtime, # 30 tablet, 0 Refills, Maintenance, 01/12/22 9:00:00 EDT, Tablet, Partial fill upon patient request if the prescription is for a schedule II opioid drug. Start Date: 01/12/22 Status: Ordered Trulicity Pen 0.75 mg/0.5 mL subcutaneous solution 0.5 mL = 0.75 mg, Subcutaneous Injection, Every week, rotate injection sites, # 2.5 mL, 0 Refills, Maintenance, 04/04/22 9:47:00 EDT, [id number] Partial fill upon patient request if the prescription is for a schedule... Start Date: 04/04/22 Status: Ordered Trulicity Pen 1.5 mg/0.5 mL subcutaneous solution 0.5 mL = 1.5 mg, Subcutaneous Injection, Every week, rotate injection sites, # 6.5 mL, 0 Refills, Maintenance, 05/04/22 9:47:00 EDT, Solution, [employer] [id number], Partial fill upon patient request if the prescription is for a schedule... Start Date: 05/04/22 Status: Ordered Wellbutrin XL 150 mg/24 hours oral tablet, extended release 1 tablet = 150 mg, By Mouth, Every 24 hours, 0 Refills, Maintenance, 01/12/22 9:00:00 EDT, Partial fill upon patient request if the prescription is for a schedule II opioid drug. 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 LUNGS AND PLEURA: There is interval decrease in loculated left pleural effusion. There is marked improvement in aeration of bilateral lungs with residual bibasilar opacities remaining. No pneumothorax. HEART, MEDIASTINUM AND GINA: Heart is normal in size. Normal mediastinal and hilar contour. BONES AND SOFT TISSUES: No acute abnormality. IMPRESSION: Residual bibasilar opacities. Interval decrease in loculated left pleural effusion. WSN: [id number] Ordering Physician: Ian Boles Dictated By: Lupis Magallon MD Dictated Date/Time: 02/06/23 5:06 pm Reviewed By: Lupis Magallon MD Signed By: Lupis Magallon MD Signed Date/Time: 02/06/23 5:06 pm Transcribed By: PEDRO LUIS Transcribed Date/Time: 02/06/23 5:04 pm Vital Signs Most recent to oldest [Reference Range]: 1 2 3 Height 174 cm (02/06/23 5:48 PM) 174 cm (02/06/23 4:02 PM) Weight 135 kg (02/06/23 4:02 PM) Oxygen Saturation [94-100 %] 96 % (02/06/23 10:58 PM) 94 % (02/06/23 9:04 PM) 94 % (02/06/23 6:51 PM) Pulse Rate [55-90 bpm] 70 bpm (02/06/23 10:58 PM) 72 bpm (02/06/23 9:04 PM) 69 bpm (02/06/23 6:51 PM) Blood Pressure [90-138/55-84 mm Hg] 144/92mm Hg *H* (02/06/23 10:58 PM) 143/108mm Hg *H* (02/06/23 9:04 PM) 126/77mm Hg (02/06/23 6:51 PM) Respiratory Rate [16-30 br/min] 16 br/min (02/06/23 10:58 PM) 20 br/min (02/06/23 9:04 PM) 8 br/min *L* (02/06/23 8:58 PM) Temperature [96.8-100.4 DegF] 97.8 DegF (02/06/23 10:58 PM) 98.6 DegF (02/06/23 4:07 PM) Liters per Minute 2 L/min (02/06/23 4:02 PM) Mode of Delivery (Oxygen) Room air (02/06/23 10:58 PM) Room air (02/06/23 9:04 PM) Room air (02/06/23 6:51 PM) Temperature Route Temporal (02/06/23 10:58 PM) Oral (02/06/23 4:07 PM) Dry Weight 135 kg (02/06/23 4:02 PM) Social History Social History Type Response Smoking Status Current every day sm oker; Type: Cigarettes; Type: Oral entered on: 06/30/15 Sex Note * Oj Mojica MD: PERFORM, SIGN, VERIFY Event Display: Patient Education Handout Authored Date: [id number] * Oj Mojica MD: PERFORM Event Display: Patient Education Leaflets Authored Date: [id number] Shortness of Breath (Dyspnea) ?? [id number] Shortness of Breath (Dyspnea) Shortness of breath is the feeling that you can't catch your breath or get enough air. It's also known as dyspnea. Dyspnea can be caused by many different conditions. They include: ??? Acute asthma attack ??? Worsening of chronic lung diseases such as chronic bronchitis and emphysema (COPD) ??? Heart failure. This is when weak heart muscle causes extra fluid to collect in the lungs. ??? Panic attacks or anxiety. Fear can cause rapid breathing (hyperventilation). ??? Pneumonia, or an infection in the lung tissue ??? Exposure to toxic substances, fumes, smoke, or certain medicines ??? Blood clot in the lung (pulmonary embolism). This is often from a piece of blood clot in adeep vein of the leg (deep vein thrombosis) that breaks off and travels to the lungs. ??? Heart attack or heart-related chest pain (angina) ??? Anemia ??? Collapsed lung (pneumothorax) ??? Dehydration ??? Based on your visit today, the exact cause of your shortness of breath is not certain. Your tests don???t show any of the serious causes of dyspnea. You may need other tests to find out if you have aserious problem. It???s important to watch for any new symptoms or symptoms that get worse. Follow up with your healthcare provider as directed. Home care Follow these tips to take care of yourself at home: ??? When your symptoms are better, go back to your usual activities. ??? If you smoke, you should stop. Join a quit-smoking program or ask your healthcare provider for help. ??? Eat a healthy diet and get plenty of sleep. ??? Get regular exercise.Talk with your healthcare provider before starting to exercise, especially if you have other medical problems. ??? Discuss with your healthcare provider about cutting down on the amount of caffeine and stimulants you consume. ?? Follow-up care Follow up with your healthcare provider, or as advised. If tests were done, you will be told if your treatment needs to be changed. You can call as directed for the results. If an X-ray was taken, you will be told of any new findings that may affect your care. ?? Call 911 Shortness of breath may be a sign of a serious medical problem. For example, it may be a problem with your heart or lungs. Call 911 if you have worsening shortness of breath or trouble breathing, especially with any of the symptoms below: ??? Shortness of breath or wheezing ??? Confusion or difficulty waking ??? Fainting or loss of consciousness ??? Fast or irregular heartbeat ??? Coughing up blood ??? Unusual pain in your chest, arm, shoulder, neck, or upper back ??? Unusual sweating ??? Feeling of doom ??? Lips or skin looks blue, purple, or floyd in color ??? Feel dizzy ?? When to seek medical advice Call your healthcare provider right away if any of these occur: ??? Redness, pain or swelling in your leg, arm, or other body area ??? Swelling in both legs or ankles ??? Fast weight gain ??? Weakness ??? Fever of 100.4??F (38??C) or higher, or as directed by your healthcare provider ?? Last Reviewed Date: 2021 ?? [id number] [employer]. All rights reserved. This information is not intended as a substitute for professional medical care. Always follow your healthcare professional's instructions. ?? * BHSPowerscribe , CIS S: TRANSCRIBE Lupis Magallon MD: VERIFY Event Display: Result: Authored Date: [id number] Chest 2 Views Frontal and Lat Hx of Present Illness: SOB x 1 day; Reason: Other:; Chest Pain; Clinical Question(s): Other: COMPARISON: 01/20/2023 FINDINGS: LINES AND TUBES: None. LUNGS AND PLEURA: There is interval decrease in loculated left pleural effusion. There is marked improvement in aeration of bilateral lungs with residual bibasilar opacities remaining. No pneumothorax. HEART, MEDIASTINUM AND GINA: Heart is normal in size. Normal mediastinal and hilar contour. BONES AND SOFT TISSUES: No acute abnormality. IMPRESSION: Residual bibasilar opacities. Interval decrease in loculated left pleural effusion. WSN: [id number] Ordering Physician: Ian Boles Dictated By: Lupis Magallon MD Dictated Date/Time: 02/06/23 5:06 pm Reviewed By: Lupis Magallon MD Signed By: Lupis Magallon MD Signed Date/Time: 02/06/23 5:06 pm Transcribed By: PEDRO LUIS Transcribed Date/Time: 02/06/23 5:04 pm Patient Care team information Care Team Personnel Name: Dominique White RN Position: S RN Member Role: Primary Care Nurse Name: Shilo Bose RN Position: S RN Member Role: Primary Care Nurse Name: Morena Forte NP Position: Reference Physician Member Role: PCP Address: Address: [address] [place] [id number] Name: Yoli Pride RN Position: [facility] ED RN W/OE and Tasks Member Role: Patient Care Provider Name: Oj Mojica MD Position: [facility] ED Medicine MD Member Role: Admitting Physician Address: Address: [address] [place] [id number]- Care Team Related Persons Name: PARK VILCHIS Address: home [address] [place] [address] Name: NICK HATHAWAY Address: home [address] [address] [address] [place] [id number]
--- NOTE | 2023-02-21 10:46 | ECG_ITS ---
Test Reason : SOB Blood Pressure : / mmHG Vent. Rate : 066 BPM Atrial Rate : 066 BPM P-R Int : 184 ms QRS Dur : 096 ms QT Int : 440 ms P-R-T Axes : 055 -06 010 degrees QTc Int : 461 ms Normal sinus rhythm NST noted Borderline ECG When compared with ECG of 17-JAN-2023 16:21, No significant change was found Referred By: Kaci Spears Electronically Signed By:JODIE BOND MD
--- NOTE | 2023-02-21 10:53 | ED.SOB ---
HPI - SOB/Dyspnea General Chief Complaint: General Medical <Kaci Spears NP - Last Filed: 02/21/23 16:44> Stated Complaint: Hypoxic <Kaci Spears NP - Last Filed: 02/21/23 16:44> Time Seen by Provider: 02/21/23 10:38 <Kaci Spears NP - Last Filed: 02/21/23 16:44> Source: patient and other (Dr Ulloa (oncology MD), and oncology nurse ) <Kaci Spears NP - Last Filed: 02/21/23 16:44> Mode of arrival: wheelchair <Kaci Spears NP - Last Filed: 02/21/23 16:44> Limitations: no limitations <Kaci Spears NP - Last Filed: 02/21/23 16:44> History of Present Illness HPI Narrative: 58 y male with history of lung cancer who hasnt started treatment, asthma/copd overlap syndrome, former OUD on methadone here with complaints pleuritic left-sided chest pain since yesterday with increasing shortness of breath from baseline with no reports of cough or fever. Patient also reports chronic LE swelling. Seen at oncology office and noticed to be tachycardic, hypoxic 88% in the office <Kaci Spears NP - Last Filed: 02/21/23 16:44> Related Data Home Medications: Home Medications Medication Instructions Recorded Confirmed gabapentin 100 mg capsule 100 mg PO TID 09/06/20 02/02/23 methadone 10 mg/mL oral syringe 90 mg PO DAILY 09/06/20 02/02/23 (FOR ORAL USE ONLY) trazodone 100 mg tablet 100 mg PO BEDTIME PRN Pain (Scale 09/06/20 02/02/23 Score 7-10) hydroxyzine HCl 50 mg tablet 50 mg PO BID 11/03/20 02/02/23 acetaminophen 325 mg tablet 325 mg PO QID PRN Pain (Scale 01/16/23 02/02/23 Score 4-6) bupropion HCl 300 mg 24 hr tablet, 300 mg PO QAM 01/16/23 02/02/23 extended release (Wellbutrin XL) docusate sodium 100 mg capsule 100 mg PO BID 01/16/23 02/02/23 duloxetine 60 mg capsule,delayed 60 mg PO DAILY 01/16/23 02/02/23 release famotidine 20 mg tablet 20 mg PO DAILY 01/16/23 02/02/23 nicotine 14 mg/24 hr daily 1 patch transdermal DAILY 01/16/23 02/02/23 transdermal patch oxycodone 5 mg tablet 5 mg PO Q8H PRN Pain (Scale Score 01/16/23 02/02/23 7-10) Previous Rx's Medication Instructions Recorded sennosides 8.6 mg tablet 17.2 mg PO BEDTIME #180 tabs 09/08/22 (Evac-U-Gen (sennosides)) rosuvastatin 10 mg tablet (Crestor) 10 mg PO DAILY #90 tabs 12/05/22 fluticasone fur. 200 mcg-umeclid 1 inh inhalation DAILY 30 days #60 01/16/23 62.5 mcg-vilant 25 mcg ea inhalat.powder (Trelegy Ellipta) nicotine (polacrilex) 2 mg gum 2 mg buccal Q2H 30 days #50 ea 01/16/23 (Nicorette) levofloxacin 500 mg tablet 500 mg PO DAILY #10 tabs 01/17/23 <Kaci Spears NP - Last Filed: 02/21/23 16:44> Allergies/Adverse Reactions: Allergies Allergy/AdvReac Type Severity Reaction Status Date / Time Penicillins [PENICILLINS] Allergy Unknown UNKNOWN Verified 01/17/23 15:56 <Kaci Spears NP - Last Filed: 02/21/23 16:44> Review of Systems Review of Systems: Yes all other systems are reviewed and are negative <Kaci Spears NP - Last Filed: 02/21/23 16:44> Constitutional: Constitutional: Reports no additional constitutional complaints, Denies body ache(s), Denies chills, Denies fever(s), Denies headache(s) and Denies weakness <Kaci Spears NP - Last Filed: 02/21/23 16:44> Eyes: Eyes: Reports no additional eye complaints and Denies change in vision <RAZA Bae Last Filed: 02/21/23 16:44> ENT: Reports system reviewed and no additional complaints, except as documented, Denies dizziness, Denies headache(s), Denies nasal congestion, Denies nasal discharge and Denies neck pain <Kaci Spears NP - Last Filed: 02/21/23 16:44> Cardiovascular: Cardiovascular: Reports no additional cardiovascular complaints, Reports chest pain, Reports leg edema and Reports dyspnea <Kaci Spears ENTRY CLERK - Last Filed: 02/21/23 16:44> Respiratory: Respiratory: Reports no additional respiratory complaints, Denies cough and Reports dyspnea <Kaci Spears ENTRY CLERK - Last Filed: 02/21/23 16:44> Gastrointestinal: Gastrointestinal: Reports no additional gastrointestinal complaints, Denies abdominal pain, Denies diarrhea, Denies nausea and Denies vomiting <Kaci Spears ENTRY CLERK - Last Filed: 02/21/23 16:44> Genitourinary: Genitourinary: Denies urinary incontinence <Kaci Spears ENTRY CLERK - Last Filed: 02/21/23 16:44> Musculoskeletal: Musculoskeletal: Reports no additional musculoskeletal complaints, Denies back pain, Denies arthralgias, Denies joint swelling, Denies neck pain, Denies numbness and Denies tingling <Kaci Spears ENTRY CLERK - Last Filed: 02/21/23 16:44> Integumentary/Breasts: Skin/Breast: Reports system reviewed and no additional complaints, except as docu and Denies rash <Kaci Spears ENTRY CLERK - Last Filed: 02/21/23 16:44> Neurologic: Reports system reviewed and no additional complaints, except as documented, Denies Abnormal speech present, Denies dizziness, Denies headache(s), Denies numbness, Denies tingling and Denies weakness <Kaci Spears ENTRY CLERK - Last Filed: 02/21/23 16:44> PMFSH Past Medical History Attestation statement: The following information was validated with the patient. <Kaci Spears NP - Last Filed: 02/21/23 16:44> Source: old records reviewed and nursing notes reviewed <Kaci Spears NP - Last Filed: 02/21/23 16:44> Medical History: Medical History Asthma-COPD overlap syndrome Depression with anxiety Hepatitis C History of CVA (cerebrovascular accident) (~2008) HLD (hyperlipidemia) Lung cancer (~2022) Methadone maintenance therapy patient Nicotine dependence, cigarettes, uncomplicated Obesity DA (obstructive sleep apnea) <Kaci Spears NP - Last Filed: 02/21/23 16:44> Surgical History: Surgical History History of bilateral hip replacements History of carpal tunnel surgery History of colonoscopy History of esophagogastroduodenoscopy (EGD) History of left inguinal hernia repair History of lung surgery <Kaci Spears NP - Last Filed: 02/21/23 16:44> Family History Family History: Family History Father No problems noted. Mother Family history of high blood pressure Hx of diabetes insipidus <Kaci Spears NP - Last Filed: 02/21/23 16:44> Social History Social History: Social History Household Members: None Housing: Apartment Alcohol intake: former Patient Tobacco Use Status: Current everyday Tobacco user Tobacco use type: Cigarette Years Smoked: (onset 13yo, 1ppd x 44yrs, now 3/4ppd, 40pyh) Smoked in Last 30 Days: Yes Use of substances other than those prescribed or required for medical reasons: No Advance Directives: No service: No Current occupational status: disabled <Kaci Spears NP - Last Filed: 02/21/23 16:44> Physical Exam Vital Signs: Vital Signs: Last Vital Signs Temp 97.7 F 02/21/23 16:00 Pulse 56 02/21/23 16:00 Resp 11 L 02/21/23 16:00 BP 163/80 H 02/21/23 16:00 Pulse Ox 97 02/21/23 16:00 O2 Del Method Room Air 02/21/23 16:00 O2 Flow Rate 2 02/21/23 10:58 Oxygen Flow Rate 2 02/21/23 10:51 BMI result Body Mass Index 26.3 <Kaci Spears NP - Last Filed: 02/21/23 16:44> Vital Signs: Last Vital Signs Temp 97.7 F 02/21/23 16:00 Pulse 56 02/21/23 16:00 Resp 11 L 02/21/23 16:00 BP 163/80 H 02/21/23 16:00 Pulse Ox 97 02/21/23 16:00 O2 Del Method Room Air 02/21/23 16:00 O2 Flow Rate 2 02/21/23 10:58 Oxygen Flow Rate 2 02/21/23 10:51 BMI result Body Mass Index 26.3 <Carlos Sanchez - Last Filed: 02/21/23 18:31> Const: General: cooperative, healthy appearing, comfortable and no acute distress <Kaci Spears NP - Last Filed: 02/21/23 16:44> Orientation/consciousness: patient oriented x3 <Kaci Spears NP - Last Filed: 02/21/23 16:44> Limitations: no limitations <Kaci Spears NP - Last Filed: 02/21/23 16:44> HEENT: Head: Yes normal to inspection <Kaci Spears NP - Last Filed: 02/21/23 16:44> Ears: hearing grossly normal bilaterally <Kaci Spears NP - Last Filed: 02/21/23 16:44> General nose exam: Normal external nose present <Kaci Spears NP - Last Filed: 02/21/23 16:44> Face and sinus: Yes normal facial exam <Kaci Spears NP - Last Filed: 02/21/23 16:44> Mouth: Normal oral and palatal mucosa present <Kaci Spears NP - Last Filed: 02/21/23 16:44> Throat: Yes posterior oropharynx normal <Kaci Spears NP - Last Filed: 02/21/23 16:44> Eyes: General: appearance normal, both eyes and all related structures <Kaci Spears NP - Last Filed: 02/21/23 16:44> Pupils: Equal, round and reactive pupils present <Kaci Spears ENTRY CLERK - Last Filed: 02/21/23 16:44> Neck: Neck: Yes normal visual inspection <Kaci Spears ENTRY CLERK - Last Filed: 02/21/23 16:44> Chest: Chest palpation & inspection: normal inspection of the chest <Kaci Spears ENTRY CLERK - Last Filed: 02/21/23 16:44> Resp: Other: Mild tachypnea <Kaci Spears ENTRY CLERK - Last Filed: 02/21/23 16:44> Auscultation: clear to auscultation bilaterally <Kaci Spears, ENTRY CLERK - Last Filed: 02/21/23 16:44> Cardio: Rate: regular rate <Kaci Spears ENTRY CLERK - Last Filed: 02/21/23 16:44> Rhythm: regular rhythm <Kaci Spears ENTRY CLERK - Last Filed: 02/21/23 16:44> Peripheral pulses: Peripheral pulses 2+ throughout <Kaci Spears ENTRY CLERK - Last Filed: 02/21/23 16:44> GI: Inspection: Yes normal to inspection <Kaci Spears ENTRY CLERK - Last Filed: 02/21/23 16:44> Palpation (GI): Soft to palpation and nontender <Kaci Spears ENTRY CLERK - Last Filed: 02/21/23 16:44> Auscultation: normal bowel sounds <Kaci Spears ENTRY CLERK - Last Filed: 02/21/23 16:44> Back/Spine/Pelvis: Thoracic/Lumbar Spine: thoracic and lumbar spine normal to inspection <Kaci Spears ENTRY CLERK - Last Filed: 02/21/23 16:44> Skin: General skin exam: no rashes or lesions noted <Kaci Spears ENTRY CLERK - Last Filed: 02/21/23 16:44> Neuro: General: patient oriented x3, no focal motor deficits and normal sensation to monofilament <Kaci Spears, ENTRY CLERK - Last Filed: 02/21/23 16:44> Cranial nerves: Yes Equal, round and reactive pupils present <Kaci Spears ENTRY CLERK - Last Filed: 02/21/23 16:44> Cognition (Neuro): normal cognition <Kaci RicardoRAZA ellison - Last Filed: 02/21/23 16:44> Speech: No Abnormal speech present <Kaci RicardoRAZA ellison - Last Filed: 02/21/23 16:44> Gait exam (Neuro): Normal gait present <Kaci HaleighRAZA ellison - Last Filed: 02/21/23 16:44> Motor exam (neuro): 5/5 motor strength present throughout <Kaci MarcelRAZA thomson - Last Filed: 02/21/23 16:44> Extrem: Other: Bilateral lower extremity swelling 1+ pitting <Kaciflorin Spears NP - Last Filed: 02/21/23 16:44> General: Yes normal to inspection <Kaci MarcelRAZA thomson - Last Filed: 02/21/23 16:44> Course Course Course Narrative: [id number] to Angelo MALDONADO pending CTA resolve. Patient did ambulate in the emergency room with oxygen saturations greater than 93% without supplemental oxygen. <Kaci MarcelRAZA thomson - Last Filed: 02/21/23 16:44> Reevaluation(s) Reevaluation #1: Patient received in sign-out at change of shift pending CTA. Received a call from [facility] and Radiology, the patient has multiple small pulmonary emboli on the right side and possibly the left side. No evidence of heart strain. I re-evaluated the patient and his oxygen saturation is 93% on room air at rest. I discussed the results with the patient. He denies any history of significant bleeding. Will start heparin and discussed with the hospitalist for admission. I will send a message to the patient's oncologist who had the patient sent here today <Carlos Sanchez - Last Filed: 02/21/23 18:31> Time: 18:11 <Carlos Sanchez - Last Filed: 02/21/23 18:31> Reevaluation #2: Discussed with the hospitalist who recommends full-dose Lovenox instead of IV heparin, the order was changed. <Carlos Sanchez - Last Filed: 02/21/23 18:31> Time: 18:30 <Carlos Sanchez - Last Filed: 02/21/23 18:31> Medications Administered Discontinued Medications Generic Name Dose Route Start Last Admin Trade Name Freq PRN Reason Stop Dose Admin Acetaminophen 975 mg 02/21/23 12:07 02/21/23 12:19 Acetaminophen 325 Mg Tablet PO 02/21/23 12:08 975 mg ONCE ONE Administration Albuterol/Ipratropium 3 ml 02/21/23 10:51 02/21/23 10:58 Albuterol/Iprat 2.5/0.5mg 3 Ml Ampul.Neb INHALE 02/21/23 10:52 3 ml ONCE ONE Administration Iohexol 100 ml 02/21/23 15:00 02/21/23 15:01 Iohexol 350 Mg/Ml 100 Ml Infus..Btl IV 02/21/23 15:01 65 ml ONCE ONE Administration Oxycodone HCl 5 mg 02/21/23 12:07 02/21/23 12:20 Oxycodone Hcl Immed Release 5 Mg Tablet PO 02/21/23 12:08 5 mg ONCE ONE Administration <Kaci Spears NP - Last Filed: 02/21/23 16:44> Medications Administered Discontinued Medications Generic Name Dose Route Start Last Admin Trade Name Freq PRN Reason Stop Dose Admin Acetaminophen 975 mg 02/21/23 12:07 02/21/23 12:19 Acetaminophen 325 Mg Tablet PO 02/21/23 12:08 975 mg ONCE ONE Administration Albuterol/Ipratropium 3 ml 02/21/23 10:51 02/21/23 10:58 Albuterol/Iprat 2.5/0.5mg 3 Ml Ampul.Neb INHALE 02/21/23 10:52 3 ml ONCE ONE Administration Iohexol 100 ml 02/21/23 15:00 02/21/23 15:01 Iohexol 350 Mg/Ml 100 Ml Infus..Btl IV 02/21/23 15:01 65 ml ONCE ONE Administration Oxycodone HCl 5 mg 02/21/23 12:07 02/21/23 12:20 Oxycodone Hcl Immed Release 5 Mg Tablet PO 02/21/23 12:08 5 mg ONCE ONE Administration <Carlos Sanchez - Last Filed: 02/21/23 18:31> Medical Decision Making Medical Decision Making MDM Narrative: This is a 58-year-old male who is coming from the and call a GI office with a history of lung cancer not currently receiving treatment with hypoxia, tachypnea and tachycardia with complaints of shortness of breath and pleuritic chest pain as well as bilateral lower extremity swelling Will need labs, EKG, chest x-ray, COVID screen Likely will need CTA On arrival tachypnea, tachycardia, hypoxia which is from CLD and not infection <Kaci Spears NP - Last Filed: 02/21/23 16:44> Differential Diagnosis Differential Diagnoses: The differential diagnosis associated with the presentation includes <Kaci Spears NP - Last Filed: 02/21/23 16:44> PE, pneumonia, congestive heart failure, ACS, viral syndrome <Kaci Spears NP - Last Filed: 02/21/23 16:44> Lab Data [facility] Lab Attestation statement: I reviewed the patient's lab results. <Kaci Spears NP - Last Filed: 02/21/23 16:44> Result Diagrams: 02/21/23 12:03 02/21/23 12:03 <Kaci Spears ENTRY CLERK - Last Filed: 02/21/23 16:44> Labs: Lab Results 02/21/23 02/21/23 02/21/23 Range/Units 12:02 12:02 12:03 WBC 6.6 (4.8-10.8) X10*3/uL RBC 3.69 L (4.60-5.80) X10*6/uL Hgb 10.5 L (14.0-18.0) g/dl Hct 33.7 L (42.0-52.0) % MCV 91.3 (80.0-98.0) fL MCH 28.5 (27.0-33.0) pg MCHC 31.2 (31.0-36.0) g/dl RDW 14.9 (11.0-16.0) % Plt Count 232 (160-400) X10*3/uL MPV 9.6 (9.4-12.4) fL Immature Gran % (Auto) 0.3 (0.0-0.4) % Neut % (Auto) 56.4 (45-73) % Lymph % (Auto) 31.9 (20-40) % [place] % (Auto) 6.9 (2-11) % Eos % (Auto) 3.9 (0-4) % Baso % (Auto) 0.6 (0-2) % Lymph # (Auto) 2.1 (1.2-4.9) X10*3/uL [place] # (Auto) 0.5 (0.1-1.2) X10*3/uL Eos # (Auto) 0.3 (0.0-0.4) X10*3/uL Baso # (Auto) 0.0 (0.0-0.2) X10*3/uL Abs Immat Gran (auto) 0.02 (0.00-0.03) X10*3/uL Absolute Neuts (auto) 3.7 (2.0-8.3) x10*3/uL Absolute Nucleated RBC 0.000 (0.0-0.012) X10*3/uL Nucleated RBC % (auto) 0.0 (0.0-0.2) /100WBC PT (10.0-13.1) SEC INR (0.9-1.1) Sodium (135-145) mmol/L Potassium (3.3-5.1) mmol/L Chloride (96-108) mmol/L Carbon Dioxide (22-29) mmol/L Anion Gap (12-20) BUN (9-16) mg/dL Creatinine (0.5-1.4) mg/dL Estim Creat Clear Calc Estimated GFR Random Glucose (60-115) mg/dL Lactic Acid (0.5-2.0) mmol/L Calcium (8.4-10.2) mg/dL Magnesium (1.6-2.6) mg/dL Total Bilirubin (0.0-1.0) mg/dL Direct Bilirubin (0.0-0.5) mg/dL AST (5-37) U/L ALT (0-40) U/L Alkaline Phosphatase (39-117) U/L Troponin I High Sens 8.5 (<3.5-35.0) ng/L B-Natriuretic Peptide 19 (<100) pg/mL Total Protein (6.5-8.0) g/dL Albumin (3.5-5.0) g/dL Urine Color Urine Appearance Urine pH (5.0-9.0) Ur Specific [place] (1.005-1.025) Urine Protein (Neg-Trace) mg/dL Urine Glucose (UA) (Negative) mg/dL Urine Ketones (Negative) mg/dL Urine Blood (Negative) Urine Nitrite (Negative) Ur Leukocyte Esterase (Negative) Urine RBC (0-2) /HPF Urine WBC (0-5) /HPF Ur Squamous Epith Cells (0-2) /HPF Urine Bacteria (None Seen) Hyaline Casts (0-2) /LPF COVID-19 (LOU) (Negative) COVID-19 Clin Com 02/21/23 02/21/23 02/21/23 Range/Units 12:03 12:03 12:03 WBC (4.8-10.8) X10*3/uL RBC (4.60-5.80) X10*6/uL Hgb (14.0-18.0) g/dl Hct (42.0-52.0) % MCV (80.0-98.0) fL MCH (27.0-33.0) pg MCHC (31.0-36.0) g/dl RDW (11.0-16.0) % Plt Count (160-400) X10*3/uL MPV (9.4-12.4) fL Immature Gran % (Auto) (0.0-0.4) % Neut % (Auto) (45-73) % Lymph % (Auto) (20-40) % [place] % (Auto) (2-11) % Eos % (Auto) (0-4) % Baso % (Auto) (0-2) % Lymph # (Auto) (1.2-4.9) X10*3/uL [place] # (Auto) (0.1-1.2) X10*3/uL Eos # (Auto) (0.0-0.4) X10*3/uL Baso # (Auto) (0.0-0.2) X10*3/uL Abs Immat Gran (auto) (0.00-0.03) X10*3/uL Absolute Neuts (auto) (2.0-8.3) x10*3/uL Absolute Nucleated RBC (0.0-0.012) X10*3/uL Nucleated RBC % (auto) (0.0-0.2) /100WBC PT 12.4 (10.0-13.1) SEC INR 1.1 (0.9-1.1) Sodium 144 (135-145) mmol/L Potassium 4.4 (3.3-5.1) mmol/L Chloride 108 (96-108) mmol/L Carbon Dioxide 29 (22-29) mmol/L Anion Gap 11 L (12-20) BUN 18 H (9-16) mg/dL Creatinine 1.20 (0.5-1.4) mg/dL Estim Creat Clear Calc 64.9 Estimated GFR > 60 Random Glucose 118 H (60-115) mg/dL Lactic Acid 0.8 (0.5-2.0) mmol/L Calcium 9.0 (8.4-10.2) mg/dL Magnesium 2.0 (1.6-2.6) mg/dL Total Bilirubin 0.2 (0.0-1.0) mg/dL Direct Bilirubin < 0.2 (0.0-0.5) mg/dL AST 16 (5-37) U/L ALT 10 (0-40) U/L Alkaline Phosphatase 93 (39-117) U/L Troponin I High Sens (<3.5-35.0) ng/L B-Natriuretic Peptide (<100) pg/mL Total Protein 6.4 L (6.5-8.0) g/dL Albumin 3.5 (3.5-5.0) g/dL Urine Color Urine Appearance Urine pH (5.0-9.0) Ur Specific [place] (1.005-1.025) Urine Protein (Neg-Trace) mg/dL Urine Glucose (UA) (Negative) mg/dL Urine Ketones (Negative) mg/dL Urine Blood (Negative) Urine Nitrite (Negative) Ur Leukocyte Esterase (Negative) Urine RBC (0-2) /HPF Urine WBC (0-5) /HPF Ur Squamous Epith Cells (0-2) /HPF Urine Bacteria (None Seen) Hyaline Casts (0-2) /LPF COVID-19 (LOU) (Negative) COVID-19 Clin Com 02/21/23 02/21/23 Range/Units 12:03 16:42 WBC (4.8-10.8) X10*3/uL RBC (4.60-5.80) X10*6/uL Hgb (14.0-18.0) g/dl Hct (42.0-52.0) % MCV (80.0-98.0) fL MCH (27.0-33.0) pg MCHC (31.0-36.0) g/dl RDW (11.0-16.0) % Plt Count (160-400) X10*3/uL MPV (9.4-12.4) fL Immature Gran % (Auto) (0.0-0.4) % Neut % (Auto) (45-73) % Lymph % (Auto) (20-40) % [place] % (Auto) (2-11) % Eos % (Auto) (0-4) % Baso % (Auto) (0-2) % Lymph # (Auto) (1.2-4.9) X10*3/uL [place] # (Auto) (0.1-1.2) X10*3/uL Eos # (Auto) (0.0-0.4) X10*3/uL Baso # (Auto) (0.0-0.2) X10*3/uL Abs Immat Gran (auto) (0.00-0.03) X10*3/uL Absolute Neuts (auto) (2.0-8.3) x10*3/uL Absolute Nucleated RBC (0.0-0.012) X10*3/uL Nucleated RBC % (auto) (0.0-0.2) /100WBC PT (10.0-13.1) SEC INR (0.9-1.1) Sodium (135-145) mmol/L Potassium (3.3-5.1) mmol/L Chloride (96-108) mmol/L Carbon Dioxide (22-29) mmol/L Anion Gap (12-20) BUN (9-16) mg/dL Creatinine (0.5-1.4) mg/dL Estim Creat Clear Calc Estimated GFR Random Glucose (60-115) mg/dL Lactic Acid (0.5-2.0) mmol/L Calcium (8.4-10.2) mg/dL Magnesium (1.6-2.6) mg/dL Total Bilirubin (0.0-1.0) mg/dL Direct Bilirubin (0.0-0.5) mg/dL AST (5-37) U/L ALT (0-40) U/L Alkaline Phosphatase (39-117) U/L Troponin I High Sens (<3.5-35.0) ng/L B-Natriuretic Peptide (<100) pg/mL Total Protein (6.5-8.0) g/dL Albumin (3.5-5.0) g/dL Urine Color Yellow Urine Appearance Clear Urine pH 6.0 (5.0-9.0) Ur Specific [place] >= 1.030 H (1.005-1.025) Urine Protein 300 (3+) H (Neg-Trace) mg/dL Urine Glucose (UA) Negative (Negative) mg/dL Urine Ketones Negative (Negative) mg/dL Urine Blood Trace H (Negative) Urine Nitrite Negative (Negative) Ur Leukocyte Esterase Moderate (2+) H (Negative) Urine RBC 0-2 (0-2) /HPF Urine WBC >50 H (0-5) /HPF Ur Squamous Epith Cells 6-10 (0-2) /HPF Urine Bacteria None Seen (None Seen) Hyaline Casts 0-2 (0-2) /LPF COVID-19 (LOU) Negative (Negative) COVID-19 Clin Com See Note <Kaci Spears, ENTRY CLERK - Last Filed: 02/21/23 16:44> Lab Results 02/21/23 02/21/23 02/21/23 Range/Units 12:02 12:02 12:03 WBC 6.6 (4.8-10.8) X10*3/uL RBC 3.69 L (4.60-5.80) X10*6/uL Hgb 10.5 L (14.0-18.0) g/dl Hct 33.7 L (42.0-52.0) % MCV 91.3 (80.0-98.0) fL MCH 28.5 (27.0-33.0) pg MCHC 31.2 (31.0-36.0) g/dl RDW 14.9 (11.0-16.0) % Plt Count 232 (160-400) X10*3/uL MPV 9.6 (9.4-12.4) fL Immature Gran % (Auto) 0.3 (0.0-0.4) % Neut % (Auto) 56.4 (45-73) % Lymph % (Auto) 31.9 (20-40) % [place] % (Auto) 6.9 (2-11) % Eos % (Auto) 3.9 (0-4) % Baso % (Auto) 0.6 (0-2) % Lymph # (Auto) 2.1 (1.2-4.9) X10*3/uL [place] # (Auto) 0.5 (0.1-1.2) X10*3/uL Eos # (Auto) 0.3 (0.0-0.4) X10*3/uL Baso # (Auto) 0.0 (0.0-0.2) X10*3/uL Abs Immat Gran (auto) 0.02 (0.00-0.03) X10*3/uL Absolute Neuts (auto) 3.7 (2.0-8.3) x10*3/uL Absolute Nucleated RBC 0.000 (0.0-0.012) X10*3/uL Nucleated RBC % (auto) 0.0 (0.0-0.2) /100WBC PT (10.0-13.1) SEC INR (0.9-1.1) Sodium (135-145) mmol/L Potassium (3.3-5.1) mmol/L Chloride (96-108) mmol/L Carbon Dioxide (22-29) mmol/L Anion Gap (12-20) BUN (9-16) mg/dL Creatinine (0.5-1.4) mg/dL Estim Creat Clear Calc Estimated GFR Random Glucose (60-115) mg/dL Lactic Acid (0.5-2.0) mmol/L Calcium (8.4-10.2) mg/dL Magnesium (1.6-2.6) mg/dL Total Bilirubin (0.0-1.0) mg/dL Direct Bilirubin (0.0-0.5) mg/dL AST (5-37) U/L ALT (0-40) U/L Alkaline Phosphatase (39-117) U/L Troponin I High Sens 8.5 (<3.5-35.0) ng/L B-Natriuretic Peptide 19 (<100) pg/mL Total Protein (6.5-8.0) g/dL Albumin (3.5-5.0) g/dL Urine Color Urine Appearance Urine pH (5.0-9.0) Ur Specific [place] (1.005-1.025) Urine Protein (Neg-Trace) mg/dL Urine Glucose (UA) (Negative) mg/dL Urine Ketones (Negative) mg/dL Urine Blood (Negative) Urine Nitrite (Negative) Ur Leukocyte Esterase (Negative) Urine RBC (0-2) /HPF Urine WBC (0-5) /HPF Ur Squamous Epith Cells (0-2) /HPF Urine Bacteria (None Seen) Hyaline Casts (0-2) /LPF COVID-19 (LOU) (Negative) COVID-19 Clin Com 02/21/23 02/21/23 02/21/23 Range/Units 12:03 12:03 12:03 WBC (4.8-10.8) X10*3/uL RBC (4.60-5.80) X10*6/uL Hgb (14.0-18.0) g/dl Hct (42.0-52.0) % MCV (80.0-98.0) fL MCH (27.0-33.0) pg MCHC (31.0-36.0) g/dl RDW (11.0-16.0) % Plt Count (160-400) X10*3/uL MPV (9.4-12.4) fL Immature Gran % (Auto) (0.0-0.4) % Neut % (Auto) (45-73) % Lymph % (Auto) (20-40) % [place] % (Auto) (2-11) % Eos % (Auto) (0-4) % Baso % (Auto) (0-2) % Lymph # (Auto) (1.2-4.9) X10*3/uL [place] # (Auto) (0.1-1.2) X10*3/uL Eos # (Auto) (0.0-0.4) X10*3/uL Baso # (Auto) (0.0-0.2) X10*3/uL Abs Immat Gran (auto) (0.00-0.03) X10*3/uL Absolute Neuts (auto) (2.0-8.3) x10*3/uL Absolute Nucleated RBC (0.0-0.012) X10*3/uL Nucleated RBC % (auto) (0.0-0.2) /100WBC PT 12.4 (10.0-13.1) SEC INR 1.1 (0.9-1.1) Sodium 144 (135-145) mmol/L Potassium 4.4 (3.3-5.1) mmol/L Chloride 108 (96-108) mmol/L Carbon Dioxide 29 (22-29) mmol/L Anion Gap 11 L (12-20) BUN 18 H (9-16) mg/dL Creatinine 1.20 (0.5-1.4) mg/dL Estim Creat Clear Calc 64.9 Estimated GFR > 60 Random Glucose 118 H (60-115) mg/dL Lactic Acid 0.8 (0.5-2.0) mmol/L Calcium 9.0 (8.4-10.2) mg/dL Magnesium 2.0 (1.6-2.6) mg/dL Total Bilirubin 0.2 (0.0-1.0) mg/dL Direct Bilirubin < 0.2 (0.0-0.5) mg/dL AST 16 (5-37) U/L ALT 10 (0-40) U/L Alkaline Phosphatase 93 (39-117) U/L Troponin I High Sens (<3.5-35.0) ng/L B-Natriuretic Peptide (<100) pg/mL Total Protein 6.4 L (6.5-8.0) g/dL Albumin 3.5 (3.5-5.0) g/dL Urine Color Urine Appearance Urine pH (5.0-9.0) Ur Specific [place] (1.005-1.025) Urine Protein (Neg-Trace) mg/dL Urine Glucose (UA) (Negative) mg/dL Urine Ketones (Negative) mg/dL Urine Blood (Negative) Urine Nitrite (Negative) Ur Leukocyte Esterase (Negative) Urine RBC (0-2) /HPF Urine WBC (0-5) /HPF Ur Squamous Epith Cells (0-2) /HPF Urine Bacteria (None Seen) Hyaline Casts (0-2) /LPF COVID-19 (LOU) (Negative) COVID-19 Clin Com 02/21/23 02/21/23 Range/Units 12:03 16:42 WBC (4.8-10.8) X10*3/uL RBC (4.60-5.80) X10*6/uL Hgb (14.0-18.0) g/dl Hct (42.0-52.0) % MCV (80.0-98.0) fL MCH (27.0-33.0) pg MCHC (31.0-36.0) g/dl RDW (11.0-16.0) % Plt Count (160-400) X10*3/uL MPV (9.4-12.4) fL Immature Gran % (Auto) (0.0-0.4) % Neut % (Auto) (45-73) % Lymph % (Auto) (20-40) % [place] % (Auto) (2-11) % Eos % (Auto) (0-4) % Baso % (Auto) (0-2) % Lymph # (Auto) (1.2-4.9) X10*3/uL [place] # (Auto) (0.1-1.2) X10*3/uL Eos # (Auto) (0.0-0.4) X10*3/uL Baso # (Auto) (0.0-0.2) X10*3/uL Abs Immat Gran (auto) (0.00-0.03) X10*3/uL Absolute Neuts (auto) (2.0-8.3) x10*3/uL Absolute Nucleated RBC (0.0-0.012) X10*3/uL Nucleated RBC % (auto) (0.0-0.2) /100WBC PT (10.0-13.1) SEC INR (0.9-1.1) Sodium (135-145) mmol/L Potassium (3.3-5.1) mmol/L Chloride (96-108) mmol/L Carbon Dioxide (22-29) mmol/L Anion Gap (12-20) BUN (9-16) mg/dL Creatinine (0.5-1.4) mg/dL Estim Creat Clear Calc Estimated GFR Random Glucose (60-115) mg/dL Lactic Acid (0.5-2.0) mmol/L Calcium (8.4-10.2) mg/dL Magnesium (1.6-2.6) mg/dL Total Bilirubin (0.0-1.0) mg/dL Direct Bilirubin (0.0-0.5) mg/dL AST (5-37) U/L ALT (0-40) U/L Alkaline Phosphatase (39-117) U/L Troponin I High Sens (<3.5-35.0) ng/L B-Natriuretic Peptide (<100) pg/mL Total Protein (6.5-8.0) g/dL Albumin (3.5-5.0) g/dL Urine Color Yellow Urine Appearance Clear Urine pH 6.0 (5.0-9.0) Ur Specific [place] >= 1.030 H (1.005-1.025) Urine Protein 300 (3+) H (Neg-Trace) mg/dL Urine Glucose (UA) Negative (Negative) mg/dL Urine Ketones Negative (Negative) mg/dL Urine Blood Trace H (Negative) Urine Nitrite Negative (Negative) Ur Leukocyte Esterase Moderate (2+) H (Negative) Urine RBC 0-2 (0-2) /HPF Urine WBC >50 H (0-5) /HPF Ur Squamous Epith Cells 6-10 (0-2) /HPF Urine Bacteria None Seen (None Seen) Hyaline Casts 0-2 (0-2) /LPF COVID-19 (LOU) Negative (Negative) COVID-19 Clin Com See Note <Carlos Sanchez - Last Filed: 02/21/23 18:31> Independent Interpretation I performed an independent interpretation of an: EKG, Plain X-Ray and CT Scan <Kaci Spears NP - Last Filed: 02/21/23 16:44> Interpretation: I independently reviewed the x-ray and agree with radiologist's report I independently reviewed the EKG which shows normal sinus rhythm with a rate of 66, normal NM, normal QRS, no QT <Kaci Spears NP - Last Filed: 02/21/23 16:44> Radiology Impression Discussion of test interpretation with radiology: I have reviewed the radiologist's reading. <Kaci Spears NP - Last Filed: 02/21/23 16:44> Radiologist Impression: [id number] [place] [id number] XRay Report Signed Patient: Dru Dorsey MR#: [id number] : 1965 Acct:[id number] Age/Sex: 58 / M ADM Date: 02/21/23 Loc: HO.ED Attending Dr: Ordering Physician: Kaci Reyna NP Date of Service: 02/21/23 Procedure(s): XR chest 2V Accession Number(s): [id number] cc: Kaci Reyna NP~ EXAMINATION: XR CHEST CLINICAL INFORMATION: Chest pain. COMPARISON: 10/14/2019 chest radiographs and chest CTA dated 01/17/2023 TECHNIQUE: 2 views of the chest were obtained. FINDINGS: Postsurgical changes are again seen in the left upper lobe suprahilar region. The lungs are otherwise clear. The heart and mediastinal structures are unremarkable. XR/XR chest 2V IMPRESSION: Postsurgical changes in the left upper lobe correlating with previous CTA findings. Overall appearance is improved compared to that study. No overt acute abnormality. <Kaci Spears NP - Last Filed: 02/21/23 16:44> Discharge Plan Discharge Clinical Impression: Chest pain, Pulmonary emboli <Kaci Spears NP - Last Filed: 02/21/23 16:44> Patient Disposition: Admitted As Inpatient <Kaci Spears NP - Last Filed: 02/21/23 16:44> Additional Instructions: Follow-up with your oncologist outpatient Continue your home medication <Kaci Spears NP - Last Filed: 02/21/23 16:44>
[2023-02-21] MEDS: Albuterol/Iprat 2.5/0.5MG 3 ML AMPUL.NEB INHALE (10:58)
[2023-02-21 12:12] LABS: MANUAL DIFF FLAG NO
[2023-02-21 12:17] LABS: Basophils Percent Auto 0.6 % (0-2); Eosinophils Absolute Auto 0.3 X10*3/uL (0.0-0.4); Eosinophils Percent Auto 3.9 % (0-4); Hematocrit 33.7 % (42.0-52.0); Hemoglobin 10.5 g/dl (14.0-18.0); INTERNATIONAL NORM RATIO 1.1 (0.9-1.1); Imm Gran Abs Auto 0.02 X10*3/uL (0.00-0.03); Imm Gran Pct Auto 0.3 % (0.0-0.4); Lymphocytes Absolute Auto 2.1 X10*3/uL (1.2-4.9); Lymphocytes Percent Auto 31.9 % (20-40); Mean Corpuscular HGB Conc 31.2 g/dl (31.0-36.0); Mean Corpuscular Hemoglobin 28.5 pg (27.0-33.0); Mean Corpuscular Volume 91.3 fL (80.0-98.0); Mean Platelet Volume 9.6 fL (9.4-12.4); Monocytes Absolute Auto 0.5 X10*3/uL (0.1-1.2); Monocytes Percent Auto 6.9 % (2-11); Neutrophils Absolute Auto 3.7 x10*3/uL (2.0-8.3); Neutrophils Percent Auto 56.4 % (45-73); Platelet Count 232 X10*3/uL (160-400); Prothrombin Time 12.4 SEC (10.0-13.1); Red Blood Count 3.69 X10*6/uL (4.60-5.80); Red Cell Distribution Width 14.9 % (11.0-16.0); White Blood Count 6.6 X10*3/uL (4.8-10.8)
[2023-02-21] MEDS: Acetaminophen 325 MG TABLET 975 MG PO (12:19)
[2023-02-21] MEDS: oxyCODONE HCl Immed Release 5 MG TABLET PO (12:20)
[2023-02-21 12:28] LABS: Lactic Acid 0.8 mmol/L (0.5-2.0)
[2023-02-21 12:33] LABS: Alanine Aminotransferase 10 U/L (0-40); Albumin Level 3.5 g/dL (3.5-5.0); Alkaline Phosphatase 93 U/L (39-117); Anion Gap 11 (12-20); Aspartate Amino Transferase 16 U/L (5-37); Bilirubin Direct < 0.2 mg/dL (0.0-0.5); Bilirubin Total 0.2 mg/dL (0.0-1.0); Blood Urea Nitrogen 18 mg/dL (9-16); Carbon Dioxide 29 mmol/L (22-29); Chloride 108 mmol/L (96-108); Creatinine Clr Calc Pharmacy 64.9; Estimated Glomerular Filt Rate > 60; Glucose Random 118 mg/dL (60-115); Potassium 4.4 mmol/L (3.3-5.1); Sodium 144 mmol/L (135-145); Total Protein 6.4 g/dL (6.5-8.0)
[2023-02-21 12:35] LABS: COVID-19 Test Negative (Negative); IDNOW Serial# 9DB6401D
[2023-02-21 12:38] LABS: B Type Natriuretic Peptide 19 pg/mL (<100)
[2023-02-21 12:41] LABS: Troponin-I High Sensitivity 8.5 ng/L (<3.5-35.0)
--- NOTE | 2023-02-21 12:51 | PC.NURSE ---
began care of this pt at 1050. pt a&ox4, calm, and cooperative. reporting 8/10 pain to the left ribcage. denies chest pain. sating 95% on 2L. pt changed over, IV placed, labs drawn, and medicated per dec.
[2023-02-21] MEDS: iohexoL 350 MG/ML 100 ML INFUS..BTL IV (15:01)
[2023-02-21 16:51] LABS: Appearance Urine Clear; Color Urine Yellow; Glucose Urine UA Negative (Negative); Leukocyte Esterase Urine Moderate (2+) (Negative); Nitrite Urine Negative (Negative); Specific Gravity - Urine >= 1.030 (1.005-1.025); UMIC TRIGGER UACC YES; Urine Blood Trace (Negative); Urine Ketones Negative (Negative); Urine Protein 300 (3+) mg/dL (Neg-Trace)
[2023-02-21 16:54] LABS: Bacteria Urine None Seen (None Seen); Hyaline Casts Urine 0-2 /LPF (0-2); RBC Urine 0-2 /HPF (0-2); UACC Culture Trigger YES; WBC Urine >50 /HPF (0-5)
--- NOTE | 2023-02-21 19:17 | P.HPHOSP_ITS ---
pt seen and examined. complaining of SOB progressively worst. Found to have bilateral PE. Will tx with AC. Urinary sx with positive UA will tx with abx., for full H&P see below History of Present Illness Date of Service: 02/21/23 Attending physician on admission: Faye Cruz Chief Complaint: SOB, pleuritic chest pain Pt is a 58-year-old male with a PMH significant for?left upper lobe adenocarcinoma of lung not yet starting treatment, asthma COPD overlap syndrome, and former OUD and methadone who presents to the ED with?pleuritic left-sided chest pain and increasing shortness of breath 3 days prior. Patient was sent to the ED from Dr. Ulloa in Oncology where he was being seen for a follow-up appointment and noted to be tachycardic and hypoxic, satting 88% on RA. Patient states that his symptoms began on Sunday when he began to feel a sharp gnawing pain in his left side, worse with inspiration. Patient also felt dizzy, lightheaded, and had increased SOB especially with exertion. Patient notes that he has been much less mobile since undergoing left hip replacement surgery a little over a year ago, says he could not walk for over 4 months post surgery. Since then he has been chronically short of breath and had limited ambulation. Pt also reports bilateral lower leg edema that is tender to the touch for the past 3 months. He now wears sandals since he has been unable to put on sneakers since then. Patient endorses polyuria but denies dysuria. No fever, chills, nausea, vomiting, diarrhea. No abdominal pain. In the ED patient was afebrile, tachypneic at 22, hypertensive up to 185/93, in setting at 88% O2 on RA. Labs were significant for stable H&H of 10.5/33.7. Troponin, BNP negative.line renal function at baseline. Hepatic function at baseline. Electrolytes normal. CXR showed no overt acute abnormality. CTA was positive for multiple small right-lung emboli and likely small left-lung emboli. Venous duplex was negative for DVT in bilateral lower extremity. Doppler study was negative for thrombus or DVT in the IVC. EKG demonstrated normal sinus rhythm without evidence of ST elevations or depressions. Pt was treated with DuoNebs, acetaminophen, oxycodone, and Lovenox. Pt will be admitted to the hospital for treatment and further evaluation of multiple pulmonary emboli. Review of Systems Review of Systems: Shortness of breath Pleuritic chest pain Fatigue Bilateral lower extremity edema Polyuria Yes all other systems are reviewed and are negative [facility] Medical History Asthma-COPD overlap syndrome Depression with anxiety Hepatitis C History of CVA (cerebrovascular accident) (~2008) HLD (hyperlipidemia) Lung cancer (~2022) Methadone maintenance therapy patient Nicotine dependence, cigarettes, uncomplicated Obesity DA (obstructive sleep apnea) Family History Father No problems noted. Mother Family history of high blood pressure Hx of diabetes insipidus Surgical History History of bilateral hip replacements History of carpal tunnel surgery History of colonoscopy History of esophagogastroduodenoscopy (EGD) History of left inguinal hernia repair History of lung surgery Social History Household Members: None Housing: Apartment Alcohol intake: former Patient Tobacco Use Status: Current everyday Tobacco user Tobacco use type: Cigarette Years Smoked: (onset 13yo, 1ppd x 44yrs, now 3/4ppd, 40pyh) Smoked in Last 30 Days: Yes Use of substances other than those prescribed or required for medical reasons: No Advance Directives: No service: No Current occupational status: disabled Meds Allergies Allergy/AdvReac Type Severity Reaction Status Date / Time Penicillins [PENICILLINS] Allergy Unknown UNKNOWN Verified 01/17/23 15:56 Active Medications: Current Medications Pharmacy Consult (Consult Rx Perform Med Rec) 1 each MISCELLANE ONCE PRN PRN Reason: Consult order Home Medications Medication Instructions Recorded Confirmed Last Taken Type methadone 10 mg/mL oral syringe 90 mg PO DAILY 09/06/20 02/02/23 02/21/23 History (FOR ORAL USE ONLY) trazodone 100 mg tablet 100 mg PO BEDTIME PRN Pain (Scale 09/06/20 02/21/23 02/20/23 History Score 7-10) hydroxyzine HCl 50 mg tablet 50 mg PO DAILY 11/03/20 02/21/23 02/21/23 History bupropion HCl 300 mg 24 hr tablet, 300 mg PO QAM 01/16/23 02/21/23 02/21/23 History extended release (Wellbutrin XL) docusate sodium 100 mg capsule 100 mg PO DAILY 01/16/23 02/21/23 02/20/23 History duloxetine 60 mg capsule,delayed 60 mg PO DAILY 01/16/23 02/21/23 02/21/23 History release famotidine 20 mg tablet 20 mg PO DAILY 01/16/23 02/21/23 02/21/23 History oxycodone 5 mg tablet 5 mg PO Q8H PRN Pain (Scale Score 01/16/23 02/21/23 Unknown History 7-10) gabapentin 300 mg capsule 300 mg PO BID 02/21/23 02/21/23 02/21/23 History nicotine 21 mg/24 hr daily 1 patch transdermal DAILY 02/21/23 02/21/23 02/21/23 History transdermal patch sennosides 8.6 mg tablet 8.6 mg PO BEDTIME PRN Constipation 02/21/23 02/21/23 Unknown History (Evac-U-Gen (sennosides)) Physical Exam Vital Signs and Narrative: Vital Signs: Last Vital Signs Temp 97.7 F 02/21/23 18:35 Pulse 52 02/21/23 18:35 Resp 16 02/21/23 18:35 BP 161/85 H 02/21/23 18:35 Pulse Ox 97 02/21/23 18:35 O2 Del Method Room Air 02/21/23 18:35 O2 Flow Rate 2 02/21/23 10:58 Oxygen Flow Rate 2 02/21/23 10:51 BMI result Body Mass Index 26.3 Constitutional: Alert, in no acute distress. Mental Status: Oriented to person, place and time. Eyes: Pupils are equal, round, and reactive to light. Ear, Nose, and Throat: Oropharynx clear, mucous membranes moist. Ears and nose without deformities. Trachea midline. Respiratory: Clear to auscultation bilaterally. No wheezing, rales, or rhonchi. Cardiovascular: S1, S2 regular. No murmurs, rubs, or gallops. Gastrointestinal: Abdomen soft, obese, tender on left side at recent surgical sites, non-distended. Normal bowel sounds. Neurologic: Cranial nerves II-XII are grossly intact bilaterally. No focal neurological deficits. Moves all extremities spontaneously. Skin: No rashes or lesions noted. Extremities: 1+ bilateral pitting edema. Psychiatric: Normal mood and affect. Results Labs 02/21/23 12:03 02/21/23 12:03 Labs: Laboratory Results - last 24 hr 02/21/23 02/21/23 02/21/23 12:02 12:02 12:03 MCV 91.3 MCH 28.5 MCHC 31.2 RDW 14.9 Plt Count 232 MPV 9.6 Immature Gran % (Auto) 0.3 Neut % (Auto) 56.4 Lymph % (Auto) 31.9 [place] % (Auto) 6.9 Eos % (Auto) 3.9 Baso % (Auto) 0.6 Lymph # (Auto) 2.1 [place] # (Auto) 0.5 Eos # (Auto) 0.3 Baso # (Auto) 0.0 Abs Immat Gran (auto) 0.02 Absolute Neuts (auto) 3.7 Absolute Nucleated RBC 0.000 Nucleated RBC % (auto) 0.0 PT INR Anion Gap Estim Creat Clear Calc Estimated GFR Random Glucose Lactic Acid Calcium Magnesium Total Bilirubin Direct Bilirubin AST ALT Alkaline Phosphatase Troponin I High Sens 8.5 B-Natriuretic Peptide 19 Total Protein Albumin Urine Color Urine Appearance Urine pH Ur Specific [place] Urine Protein Urine Glucose (UA) Urine Ketones Urine Blood Urine Nitrite Ur Leukocyte Esterase Urine RBC Urine WBC Ur Squamous Epith Cells Urine Bacteria Hyaline Casts COVID-19 (LOU) COVID-19 Clin Com 02/21/23 02/21/23 02/21/23 12:03 12:03 12:03 MCV MCH MCHC RDW Plt Count MPV Immature Gran % (Auto) Neut % (Auto) Lymph % (Auto) [place] % (Auto) Eos % (Auto) Baso % (Auto) Lymph # (Auto) [place] # (Auto) Eos # (Auto) Baso # (Auto) Abs Immat Gran (auto) Absolute Neuts (auto) Absolute Nucleated RBC Nucleated RBC % (auto) PT 12.4 INR 1.1 Anion Gap 11 L Estim Creat Clear Calc 64.9 Estimated GFR > 60 Random Glucose 118 H Lactic Acid 0.8 Calcium 9.0 Magnesium 2.0 Total Bilirubin 0.2 Direct Bilirubin < 0.2 AST 16 ALT 10 Alkaline Phosphatase 93 Troponin I High Sens B-Natriuretic Peptide Total Protein 6.4 L Albumin 3.5 Urine Color Urine Appearance Urine pH Ur Specific [place] Urine Protein Urine Glucose (UA) Urine Ketones Urine Blood Urine Nitrite Ur Leukocyte Esterase Urine RBC Urine WBC Ur Squamous Epith Cells Urine Bacteria Hyaline Casts COVID-19 (LOU) COVID-19 Clin Com 02/21/23 02/21/23 12:03 16:42 MCV MCH MCHC RDW Plt Count MPV Immature Gran % (Auto) Neut % (Auto) Lymph % (Auto) [place] % (Auto) Eos % (Auto) Baso % (Auto) Lymph # (Auto) [place] # (Auto) Eos # (Auto) Baso # (Auto) Abs Immat Gran (auto) Absolute Neuts (auto) Absolute Nucleated RBC Nucleated RBC % (auto) PT INR Anion Gap Estim Creat Clear Calc Estimated GFR Random Glucose Lactic Acid Calcium Magnesium Total Bilirubin Direct Bilirubin AST ALT Alkaline Phosphatase Troponin I High Sens B-Natriuretic Peptide Total Protein Albumin Urine Color Yellow Urine Appearance Clear Urine pH 6.0 Ur Specific [place] >= 1.030 H Urine Protein 300 (3+) H Urine Glucose (UA) Negative Urine Ketones Negative Urine Blood Trace H Urine Nitrite Negative Ur Leukocyte Esterase Moderate (2+) H Urine RBC 0-2 Urine WBC >50 H Ur Squamous Epith Cells 6-10 Urine Bacteria None Seen Hyaline Casts 0-2 COVID-19 (LOU) Negative COVID-19 Clin Com See Note Imaging Radiologist's Impressions: Impressions Chest X-Ray 02/21/23 11:34 IMPRESSION: Postsurgical changes in the left upper lobe correlating with previous CTA findings. Overall appearance is improved compared to that study. No overt acute abnormality. Chest CTA 02/21/23 15:29 IMPRESSION: * Exam is limited by low [id number] ratio. * Positive PE, There are small filling defects in branches of the right pulmonary artery to the middle lobe and right lower lobe, Tamez image, and nonopacification of a branch of left pulmonary artery to left upper lobe concerning for small emboli. No large saddle embolus. No cardiac strain. No pulmonary infarct. * Residual small left pleural effusion, most of the pleural effusion and pneumothorax seen on prior CT from December 2022 has resolved. * Redemonstration of left suprahilar soft tissue opacity concerning for patient's known neoplasm, this has not changed. * Redemonstration of patchy airspace opacities especially upper lobes some of which are slightly more dense compared with the recent CT from December 2022 others have cleared. (Referring physician staff is being called, by physician staff assistance, to be alerted of the above critical findings and recommendations.) Lynda Aiken 02/21/2023 6:00 PM Assessment and Plan (1) Pulmonary emboli: Status: Acute (2) UTI (urinary tract infection): Status: Acute Plan Pt is a 58-year-old male with a PMH significant for?left upper lobe adenocarcinoma of lung not yet starting treatment, asthma COPD overlap syndrome, and former OUD and methadone who presents to the ED with?pleuritic left-sided chest pain and increasing shortness of breath 3 days prior. CTA positive for PE. Pt will be admitted to the hospital for treatment and further evaluation of multiple pulmonary emboli. Acute hypoxic respiratory failure in the setting of pulmonary embolism in a patient with lung adenocarcinoma Patient arrived to ED satting 88% on room air CTA was positive for multiple small right-lung emboli and likely small left-lung emboli Source unclear: venous duplex was negative for DVT in bilateral lower extremity, ?doppler study was negative for thrombus or DVT in the IVC Pt will receive therapeutic Lovenox at 1 mg/kg Oncology consult Monitor on telemetry UTI UA positive for UTI Patient is symptomatic with polyuria Ceftriaxone, begun 02/21/2023 Lower leg edema Patient complains of lower leg edema and tenderness to the touch x3 months Unclear etiology, patient without a history of cardiac issues, venous duplex and Doppler studies negative for DVT BNP negative Echocardiogram Monitor on telemetry Asthma/COPD overlap syndrome Not in acute exacerbation Continue home inhalers Ezio p.r.n. Full Code Attending:?Dr. Cruz DVT Prophylaxis: Therapeutic Lovenox Pt will require a hospitalization of at least two nights for treatment and further evaluation of multiple pulmonary emboli. Time Spent With Patient Time: Total time managing care of this patient today ____ minutes. Quality Stroke Does the patient have a stroke diagnosis?: No VTE Prior VTE?: No VTE Risk Level:: Medical - moderate - high VTE Device Contraindication: Treatment Not Indicated VTE Drug Contraindication: N/A - Med Ordered
[2023-02-21] MEDS: Enoxaparin Sodium 120 MG/0.8 ML SYRINGE SUBCUT (19:31)
[2023-02-21 20:58] LABS: Partial Thromboplastin Time 40.2 SEC (26.0-36.4)
[2023-02-21] MEDS: Gabapentin 300 MG CAPSULE PO (20:59)
[2023-02-21] MEDS: cefTRIAXone sodium 1 GM in 0.9 % Sodium Chloride 50 ML IV (21:01)
--- NOTE | 2023-02-21 21:58 | PC.NURSE ---
pt weight on standing scale 127.8kg
[2023-02-22] VITALS (7 sets, daily range): BP systolic 143–173; BP diastolic 75–94; PULSE 48–68; RESP 11–20; TEMP 36.1–37.1; O2SAT 91–97; BMI 42.8
[2023-02-22] MEDS: oxyCODONE HCl Immed Release 5 MG TABLET PO ×3 (05:01→20:34)
--- NOTE | 2023-02-22 05:12 | PC.NURSE ---
pt c/o 8/10 left rib pain after coughing, medicated with oxycodone po
[2023-02-22 06:58] LABS: Hematocrit 33.4 % (42.0-52.0); Hemoglobin 10.6 g/dl (14.0-18.0); Mean Corpuscular HGB Conc 31.7 g/dl (31.0-36.0); Mean Corpuscular Hemoglobin 28.5 pg (27.0-33.0); Mean Corpuscular Volume 89.8 fL (80.0-98.0); Mean Platelet Volume 9.6 fL (9.4-12.4); Platelet Count 217 X10*3/uL (160-400); Red Blood Count 3.72 X10*6/uL (4.60-5.80); White Blood Count 5.7 X10*3/uL (4.8-10.8)
--- NOTE | 2023-02-22 07:00 | CA_ITS ---
Transthoracic Echocardiogram Patient (Last, First, Middle): Dru Dorsey A Gender: Male Date of : 1965 Age: 58 Procedure Date: 02/22/2023 Procedure Type: Transthoracic Echocardiogram Location: [facility] [place] Height: 172.72 cm Weight: 127.46 kg BSA: 2.36 m2 Heart Rate: 57 bpm BP: 173 / 88 mmHg Slag Motor Operator: JARRETT Referring MD: Jacquelyn MALDONADO Soils Engineer: Tom Caba MD Symptoms: PE, lower leg edema Study Quality: Technically Difficult ECG Rhythm: Bradycardia Conclusions: - 1. Technically limited study despite use of contrast agent 2. Normal LV systolic function with mild LVH with grade 1 diastolic dysfunction 3. Cardiac valves not well visualized but cardiac valvular Doppler within normal limits Findings Procedure Information Contrast agent, definity, is being given per protocol without apparent complications. Left Ventricle Normal left ventricular size and systolic function. There is mildly increased left ventricular wall thickness. The visually estimated ejection fraction is between 60-65%. Spectral Doppler is indicative of an impaired relaxation filling pattern. E/E prime ratio is <8, consistent with normal filling pressures. Evidence suggests grade I (mild) diastolic dysfunction. Right Ventricle Normal right ventricular cavity size. There is normal right ventricular systolic function. Atria The left atrium was not well visualized. Interatrial shunt cannot be excluded. The right atrium was not well visualized. Aortic Valve The aortic valve was not well visualized. There is no aortic valve stenosis. There is no aortic valve regurgitation. Mitral Valve The mitral valve was not well visualized. There is trace mitral valve regurgitation. There is no mitral valve stenosis. Pulmonic Valve The pulmonic valve was not well visualized. Tricuspid Valve The tricuspid valve was not well visualized. Tricuspid regurgitation envelope is inadequate for calculation of right ventricular systolic pressure. Normal right atrial pressure. Great Vessels The aorta was not well visualized. The pulmonary artery was not well visualized. Venous The inferior vena cava is normal in size and collapses greater than 50% with inspiration. Pericardium/Pleural The pericardium was not well visualized. Prior Study Comparison No significant change compared to prior study dated: 12/03/2020. Measurements 2D Linear Measurements IVSd: 1.11 0.6-0.9/0.6-1.0 cm LVIDd: 5.68 3.9-5.3/4.2-5.9 cm LVIDd Index: 2.41 2.4-3.2/2.2-3.1 cm/m2 LVIDs: 3.44 2.0-3.6 cm LVPWd: 1.22 0.7-1.1 cm LA Diam: 4.20 2.7-3.8/3.0-4.0 cm LAIDs Index: 1.78 1.5-2.3 cm/m2 LV Mass: 343.90 67-162/88-224 g LV Mass Index: 145.72 43-95/49-115 g/m2 LVOT Diam: 2.30 3.0+(-)1.3 cm 2D Systolic Function EF 4C: 58.90 >55% EF 2C: 60.60 >55% EF BiP: 61.00 >55% Mitral Valve MV Pk E: 0.67 MV PK A: 0.88 MV Decel Time: 268.00 E/A: 0.80 E'Lateral: 9.57 E'Medial: 8.81 E/E' Med: 7.60 E/E' Lat: 7.00 PHT: 78.00 MVA PHT: 2.82 Decel [place]: 2.50 Aortic Valve AoV Pk [place]: 1.91 AoV Mn [place]: 1.30 AoV VTI: 0.42 AoV Pk Grad: 15.00 Aov Mn Grad: 8.00 DUSTIN Cont.VTI: 2.56 LVOT LVOT Pk [place]: 1.16 LVOT Mn [place]: 0.80 LVOT VTI: 0.26 LVOT Pk Grad: 5.00 LVOT Mn Grad: 3.00 LVOT Diam: 2.30 LVOT Area: 4.15 Diastolic Function MV Pk E: 0.67 MV Pk A: 0.88 E/A: 0.80 E'Medial: 8.81 E/E' Med: 7.60 E' Laterial: 9.57 E/E' Lat: 7.00 Right Ventricle TAPSE (mm): 31.70 TVS' [place]: 16.20 Tricuspid Valve RA Press: 3.00 Great Vessels Aorta Sinus of Valsalva: 3.80 2.0-3.5 cm Ao Asc: 3.60 2.1-3.4 cm Pulmonary Valve PV Pk [place]: 1.11 Peak PV Grad: 5.00 Updated in Other Vendor System with Status of Final Tom Caba MD electronically signed on 02/22/2023 5:19:05 PM with status of Final
[2023-02-22] MEDS: 0.9 % Sodium Chloride Flush 3 ML SYRINGE IVFLUSH ×2 (08:02→16:59)
--- NOTE | 2023-02-22 08:05 | PC.NURSE ---
pt alert and oriented, skin pwd, respirations even and unlabored, ls diminished, pt reports left sided rib area pain at 8/10 and some sob
--- NOTE | 2023-02-22 08:05 | PC.NURSE ---
REPORT GIVEN TO [facility] RN
--- NOTE | 2023-02-22 08:35 | PC.NURSE ---
pharmacy just called, pt needs methadone verification form performed
--- NOTE | 2023-02-22 08:46 | P.CNHO_ITS ---
Subjective - Subjective Chief complaint: Chest pain Patient: new to practice Consult date: 02/22/23 Primary Care Provider: TERI Steele Medical Summary: Diagnosis: Left upper lobe lung adenocarcinoma December 2022 01/09/2023-navigational bronchoscopy with biopsy, de Renuka left upper lobe wedge with completion segmentectomy, mediastinal lymphadenectomy?. He underwent left upper lobe which resection/segmentectomy on 01/09/[address] [facility]. Pathology revealed invasive adenocarcinoma, tumor size 2 x 1.5 x 1.1 cm, spread through air spaces identified, visceral pleural invasion not identified, margins negative. No regional lymph nodes identified. Pathological stage pT2a pNX. IHC revealed TTF1 positive, P 40 negative. NGS testing revealed PDL1 , TPS 4%, KRAS Exon 2 detected(p.G12R), ALK rearrangement not detected, BRAF mutation not detected, EGFR mutation not detected ROS1 negative. HPI - Consult Narrative Reason for consult: Pulmonary embolism/lung cancer Narrative: Dru Dorsey is a 58 year old male who is currently admitted for bilateral pulmonary emboli. He developed progressively worsening left-sided pleuritic chest pain. He presented to Oncology office tachycardic and hypoxemic with pulse ox 88% on room air. He was referred to the emergency department where he underwent CT angiogram of chest and lower extremity Dopplers. This revealed mainly left-sided but bilateral multiple pulmonary emboli. He has been started on Lovenox. He feels better but has still some pain at the surgical site. No nausea or emesis. No fever or chills. No abdominal discomfort or leg swelling. Review of Systems - Constitutional Reports as per HPI - Cardiovascular Reports no additional cardiovascular complaints, Denies excessive sweating, Denies fainting - Respiratory Reports no additional respiratory complaints - Gastrointestinal Reports no additional gastrointestinal complaints - Neurologic Reports no additional neurologic complaints, Denies abnormal speech, Denies dizziness, Denies headache(s), Denies numbness, Denies tingling, Denies weakness Oncology Screenings - ECOG Performance Status ECOG Performance Status: 1 [facility] Medical History: Medical History (Last Reviewed 02/21/23 @ 20:48 by JOEL Andrade) Asthma-COPD overlap syndrome Depression with anxiety Hepatitis C History of CVA (cerebrovascular accident) Onset Date: ~2008 HLD (hyperlipidemia) Lung cancer Onset Date: ~2022 Methadone maintenance therapy patient Nicotine dependence, cigarettes, uncomplicated Obesity DA (obstructive sleep apnea) Family History: Family History (Last Reviewed 02/21/23 @ 20:48 by JOEL Andrade) Father No problems noted. Mother Family history of high blood pressure Hx of diabetes insipidus Surgical History: Surgical History (Last Reviewed 02/21/23 @ 20:48 by JOEL Andrade) History of bilateral hip replacements History of carpal tunnel surgery History of colonoscopy History of esophagogastroduodenoscopy (EGD) History of left inguinal hernia repair History of lung surgery Social History: Social History (Last Reviewed 02/21/23 @ 20:48 by JOEL Andrade) Living Situation History: Household Members: None Housing: Apartment Tobacco History: Patient Tobacco Use Status: Current someday Tobacco Tobacco use type: Cigarette Years Smoked: (onset 13yo, 1ppd x 44yrs, now 3/4ppd, 40pyh) Smoked in Last 30 Days: Yes Substance Use History: Use of substances other than those prescribed or required for medical reasons : No Advance Directives: Advance Directives: No Advance Directives Information Provided: Advance Directives Information Provided comment: Declined Nutrition Assessment: Nutrition Risks: No Nutritional Risk Occupation Assessmet: service: No Current occupational status: disabled Home Medications and Allergies Current Medications: Current Medications Acetaminophen (Acetaminophen 325 Mg Tablet) 650 mg PO Q6H PRN PRN Reason: Pain, Mild (Pain Scale 1-3) Albuterol/Ipratropium (Albuterol/Iprat 2.5/0.5mg 3 Ml Ampul.Neb) 3 ml INHALE RQ4H WHILE AWAKE PRN PRN Reason: Shortness of Breath Atorvastatin Calcium (Atorvastatin Calcium 40 Mg Tablet) 40 mg PO DAILY ALEXANDRA Bupropion HCl (Bupropion Hcl Xl 300 Mg Tab.Er.24h) 300 mg PO DAILY ALEXANDRA Docusate Sodium (Docusate Sodium 100 Mg Capsule) 100 mg PO DAILY ALEXANDRA Duloxetine HCl (Duloxetine Hcl 60 Mg Capsule.Dr) 60 mg PO DAILY ALEXANDRA Enoxaparin Sodium (Enoxaparin Sodium 150 Mg/Ml Syringe) 130 mg SUBCUT Q12H [facility]LEXANDR[facility] Famotidine (Famotidine 20 Mg Tablet) 20 mg PO DAILY ALEXANDRA Fluticasone/Vilanterol (Fluticasone/Vilanterol 200/25 Blst.W.Dev) 200 puff INHALE RDAILY ALEXANDRA Gabapentin (Gabapentin 300 Mg Capsule) 300 mg PO BID [facility] Last Admin: 02/21/23 20:59 Dose: 300 mg Hydroxyzine HCl (Hydroxyzine Hcl 50 Mg Tablet) 50 mg PO DAILY [facility] Ceftriaxone Sodium 1 gm/ (Sodium Chloride) 50 mls @ 100 mls/hr IV Q24H [facility] Last Infusion: 02/21/23 22:00 Dose: Infused Nicotine (Nicotine 21 Mg Patch.Td24) 21 mg TRANSDERMA DAILY [facility] Oxycodone HCl (Oxycodone Hcl Immed Release 5 Mg Tablet) 5 mg PO Q8H PRN PRN Reason: Pain (Scale Score 7-10) Last Admin: 02/22/23 05:01 Dose: 5 mg Pharmacy Consult (Consult Rx Perform Med Rec) 1 each MISCELLANE ONCE PRN PRN Reason: Consult order Senna (Sennosides 8.6 Mg Tablet) 8.6 mg PO BEDTIME PRN PRN Reason: Constipation Sodium Chloride (0.9 % Sodium Chloride Flush 3 Ml Syringe) 3 ml IVFLUSH QSHIFT [facility] Last Admin: 02/22/23 08:02 Dose: 3 ml Tiotropium [place] (Tiotropium [place] 18 Mcg Cap.W.Dev) 1 puff [facility] Trazodone HCl (Trazodone Hcl 100 Mg Tablet) 100 mg PO BEDTIME PRN PRN Reason: Pain (Scale Score 7-10) Home Medications Medication Instructions Recorded Confirmed Type methadone 10 mg/mL oral syringe 90 mg PO DAILY 09/06/20 02/02/23 History (FOR ORAL USE ONLY) hydroxyzine HCl 50 mg tablet 50 mg PO DAILY 11/03/20 02/21/23 History docusate sodium 100 mg capsule 100 mg PO DAILY 01/16/23 02/21/23 History famotidine 20 mg tablet 20 mg PO DAILY 01/16/23 02/21/23 History oxycodone 5 mg tablet 5 mg PO Q8H PRN Pain (Scale Score 01/16/23 02/21/23 History 7-10) gabapentin 300 mg capsule 300 mg PO BID 02/21/23 02/21/23 History nicotine 21 mg/24 hr daily 1 patch transdermal DAILY 02/21/23 02/21/23 History transdermal patch sennosides 8.6 mg tablet 8.6 mg PO BEDTIME PRN Constipation 02/21/23 02/21/23 History (Evac-U-Gen (sennosides)) mirtazapine 15 mg tablet 15 mg PO BEDTIME 02/22/23 02/22/23 History venlafaxine 37.5 mg 37.5 mg PO DAILY 02/22/23 02/22/23 History capsule,extended release 24 hr Allergies Allergy/AdvReac Type Severity Reaction Status Date / Time Penicillins [PENICILLINS] Allergy Unknown UNKNOWN Verified 01/17/23 15:56 Physical Exam Vital signs: Vital Signs Temp 98.2 F 02/22/23 07:21 Pulse 48 L 02/22/23 07:21 Resp 14 02/22/23 07:21 BP 156/94 H 02/22/23 07:21 Pulse Ox 92 02/22/23 07:21 O2 Del Method Room Air 02/22/23 07:21 O2 Flow Rate 2 02/21/23 10:58 Intake & Output 02/21/23 02/22/23 02/22/23 18:59 06:59 18:59 Intake Total 50 / 50 Balance 50 / 50 Intake: Intake, IV Amount 50 / 50 cefTRIAXone sodium 1 gm In 0.9 50 / 50 % Sodium Chloride 50 ml @ 100 mls/hr IV Q24H [facility] Rx#: [id number] Other: Weight 78.6 kg 127.8 kg Weight in Grams [id number] Weight 127.8 kg - Constitutional Present: no acute distress, obese - Routine HEENT Exam Head: Present: normal inspection Eye: Present: PERRL - Routine Neck Exam Present: supple. Absent: lymphadenopathy - Routine Respiratory Exam Absent: accessory muscle use - Routine Cardiovascular Exam Cardiovascular: Present: S1, S2 - Routine Abdominal Exam Present: soft - Routine Extremities Exam Absent: pedal edema - Routine Skin Exam Present: intact - Routine Neurological Exam Present: alert, oriented X3 Hem/Onc Consult Result - Labs CBC & Chem 7: 02/22/23 06:17 02/21/23 12:03 Labs: Short CBC 02/21/23 02/22/23 Range/Units 12:03 06:17 WBC 6.6 5.7 (4.8-10.8) X10*3/uL Hgb 10.5 L 10.6 L (14.0-18.0) g/dl Hct 33.7 L 33.4 L (42.0-52.0) % Plt Count 232 217 (160-400) X10*3/uL BMP 02/21/23 12:03 Sodium 144 Potassium 4.4 Chloride 108 Carbon Dioxide 29 BUN 18 H Creatinine 1.20 Calcium 9.0 Liver Function 02/21/23 Range/Units 12:03 Total Bilirubin 0.2 (0.0-1.0) mg/dL Direct Bilirubin < 0.2 (0.0-0.5) mg/dL AST 16 (5-37) U/L ALT 10 (0-40) U/L Alkaline Phosphatase 93 (39-117) U/L Albumin 3.5 (3.5-5.0) g/dL Urine 02/21/23 Range/Units 16:42 Urine Color Yellow Urine Appearance Clear Urine pH 6.0 (5.0-9.0) Ur Specific [place] >= 1.030 H (1.005-1.025) Urine Protein 300 (3+) H (Neg-Trace) mg/dL Urine Glucose (UA) Negative (Negative) mg/dL Assessment and Plan Patient Active problem list reviewed?: Yes (1) Pulmonary emboli Status: Acute Assessment and plan: 1. This is a 58-year-old male with recently diagnosed left upper lobe adenocarcinoma, status post segmentectomy on 01/09/[address] [facility] now presenting with bilateral pulmonary emboli. CT angiogram of chest performed 02/21/2023 showed filling defects in the right middle, right lower lobe as well as left upper lobe concerning for multiple small pulmonary emboli. No large saddle embolus, no cardiac strain or pulmonary infarct. Lower extremity Doppler study was negative for DVT. Patient has been started on Lovenox. He is scheduled for echocardiogram today. Oxygen saturation has improved. Reason for PE is because of recent surgery, ongoing smoking and obesity. He also has lot of postoperative pain at the surgical site. He is now on pain medications. He can be switched to oral anticoagulant such as Eliquis and discharged home when feasible. He has a scheduled follow-up with Oncology next week. I thank you for this consult. - Time Spent With Patient Time Spent with Patient (in minutes): 25
[2023-02-22] MEDS: Fluticasone/Vilanterol 200/25 BLST.W.DEV 200 PUFF INHALE (09:01)
--- NOTE | 2023-02-22 09:26 | MHC.CM.PN ---
CM met with Patient at bedside. Patient lives alone in an apartment and uses a cane at times. Patient states that he is active with [facility] and he gets his Methadone from [facility] in [place]. Home/resume said services is the goal and CM had initiated and will follow for dc planning. Patient has received [employer] vax x2 and his PCP/MANAGER COMPLIANCE is Morena Mandujano.
[2023-02-22] MEDS: Nicotine 21 MG PATCH.TD24 TRANSDERMA (09:52)
[2023-02-22] MEDS: DULoxetine HCl 60 MG CAPSULE.DR PO (09:52)
[2023-02-22] MEDS: Acetaminophen 325 MG TABLET 650 MG PO ×2 (09:53→20:34)
[2023-02-22] MEDS: hydrOXYzine HCL 50 MG TABLET PO (09:53)
[2023-02-22] MEDS: Enoxaparin Sodium 150 MG/ML SYRINGE 130 MG SUBCUT (09:53)
[2023-02-22] MEDS: Famotidine 20 MG TABLET PO (09:54)
[2023-02-22] MEDS: Atorvastatin Calcium 40 MG TABLET PO (09:54)
[2023-02-22] MEDS: buPROPion HCl XL 300 MG TAB.ER.24H PO (09:54)
[2023-02-22] MEDS: Gabapentin 300 MG CAPSULE PO ×2 (09:54→20:26)
[2023-02-22] MEDS: Docusate Sodium 100 MG CAPSULE PO (09:54)
--- NOTE | 2023-02-22 10:55 | HE.PHANOTE ---
Methadone Verification Pharmacy has received the methadone verification from [facility]. Patient last received methadone [address] [facility] on with take home bottles. Confirmed with jacinto at the clinic. Frida Mac, RomeroD
[2023-02-22] MEDS: Lidocaine 4 % Patch ADH..PATCH 1 PATCH TRANSDERMA (11:07)
[2023-02-22] MEDS: methADONE HCl 20 MG/2 ML ORAL.CONC 90 MG PO (12:06)
--- NOTE | 2023-02-22 15:17 | P.PNIM_ITS ---
Subjective Subjective Date of Service: 02/22/23 Interval History: seen and examined this morning follow up for pulmonary embolism reporting left side pain - chronic since surgery in December ongoing sob, primarily on exertion Review of Systems Review of Systems: Yes all other systems are reviewed and are negative Constitutional Constitutional: Denies chills and Denies fever(s) Cardiovascular Cardiovascular: Denies palpitations and Reports dyspnea Respiratory Respiratory: Denies cough and Reports dyspnea Gastrointestinal Gastrointestinal: Denies abdominal pain, Denies nausea and Denies vomiting Endocrine Endocrine: Denies palpitations Physical Exam Vital Signs: Vital Signs: Last Vital Signs Temp 97.3 F 02/22/23 08:48 Pulse 61 02/22/23 09:04 Resp 15 02/22/23 09:04 BP 173/88 H 02/22/23 08:48 Pulse Ox 97 02/22/23 08:48 O2 Del Method Room Air 02/22/23 08:48 O2 Flow Rate 2 02/21/23 10:58 Oxygen Flow Rate 2 02/21/23 10:51 BMI result Body Mass Index 42.8 Const: General: comfortable, alert and awake Nutritional Appearance: overweight Orientation/consciousness: patient oriented x3 Chest: Other: left chest wall, small dry wound from previous surgery - no open wound Resp: Effort & Inspection: normal respiratory effort, able to speak in complete sentences, no respiratory distress and no use of accessory muscles Cardio: Rate: regular rate Heart sounds: S1 normal heart sound present and S2 normal heart sound present GI: Inspection: No distended Palpation (GI): Soft to palpation and nont nico Neuro: General: patient oriented x3 and CN's II-XI intact bilaterally Extrem: Other: trace edema b/l lower legs Objective Data Active Medications Acetaminophen (Acetaminophen 325 Mg Tablet) 650 mg PO Q6H PRN PRN Reason: Pain, Mild (Pain Scale 1-3) Last Admin: 02/22/23 09:53 Dose: 650 mg Documented By: JACK Albuterol/Ipratropium (Albuterol/Iprat 2.5/0.5mg 3 Ml Ampul.Neb) 3 ml INHALE RQ4H WHILE AWAKE PRN PRN Reason: Shortness of Breath Atorvastatin Calcium (Atorvastatin Calcium 40 Mg Tablet) 40 mg PO DAILY ALEXANDRA Last Admin: 02/22/23 09:54 Dose: 40 mg Documented By: JACK Docusate Sodium (Docusate Sodium 100 Mg Capsule) 100 mg PO DAILY [facility] Last Admin: 02/22/23 09:54 Dose: 100 mg Documented By: JACK Enoxaparin Sodium (Enoxaparin Sodium 150 Mg/Ml Syringe) 130 mg SUBCUT Q12H [facility] Last Admin: 02/22/23 09:53 Dose: 130 mg Documented By: JACK Famotidine (Famotidine 20 Mg Tablet) 20 mg PO DAILY [facility] Last Admin: 02/22/23 09:54 Dose: 20 mg Documented By: JACK Fluticasone/Vilanterol (Fluticasone/Vilanterol 200/25 Blst.W.Dev) 200 puff INHALE RDAILY [facility] Last Admin: 02/22/23 09:01 Dose: 200 puff Documented By: PABLO Gabapentin (Gabapentin 300 Mg Capsule) 300 mg PO BID [facility] Last Admin: 02/22/23 09:54 Dose: 300 mg Documented By: JACK Hydroxyzine HCl (Hydroxyzine Hcl 50 Mg Tablet) 50 mg PO DAILY [facility] Last Admin: 02/22/23 09:53 Dose: 50 mg Documented By: JACK Ceftriaxone Sodium 1 gm/ (Sodium Chloride) 50 mls @ 100 mls/hr IV Q24H [facility] Last Infusion: 02/21/23 22:00 Dose: 0 mls/hr Documented By: ROIBNA Lidocaine (Lidocaine 4 % Patch Adh..Patch) 1 patch TRANSDERMA DAILY [facility]; Protocol Last Admin: 02/22/23 11:07 Dose: 1 patch Documented By: JACK Methadone HCl (Methadone Hcl 20 Mg/2 Ml Oral.Conc) 90 mg PO DAILY [facility] Last Admin: 02/22/23 12:06 Dose: 90 mg Documented By: JACK Mirtazapine (Mirtazapine 15 Mg Tablet) 15 mg PO BEDTIME [facility] Nicotine (Nicotine 21 Mg Patch.Td24) 21 mg TRANSDERMA DAILY [facility] Last Admin: 02/22/23 09:52 Dose: 21 mg Documented By: JACK Oxycodone HCl (Oxycodone Hcl Immed Release 5 Mg Tablet) 5 mg PO Q6H PRN PRN Reason: Pain (Scale Score 7-10) Last Admin: 02/22/23 14:39 Dose: 5 mg Documented By: PETE Pharmacy Consult (Consult Rx Perform Med Rec) 1 each MISCELLANE ONCE PRN PRN Reason: Consult order Senna (Sennosides 8.6 Mg Tablet) 8.6 mg PO BEDTIME PRN PRN Reason: Constipation Sodium Chloride (0.9 % Sodium Chloride Flush 3 Ml Syringe) 3 ml IVFLUSH QSHIFT [facility] Last Admin: 02/22/23 08:02 Dose: 3 ml Documented By: TRACY Tiotropium [place] (Tiotropium [place] 18 Mcg Cap.W.Dev) 1 puff INHALE RDAILY [facility] Last Admin: 02/22/23 09:01 Dose: 1 puff Documented By: PABLO Venlafaxine HCl (Venlafaxine Hcl Er 37.5 Mg Cap.Er.24h) 37.5 mg PO DAILY [facility] Labs 02/22/23 06:17 02/21/23 12:03 Labs: Laboratory Results - last 24 hr 02/21/23 02/21/23 02/22/23 16:42 20:40 06:17 MCV 89.8 MCH 28.5 MCHC 31.7 RDW 15.0 Plt Count 217 MPV 9.6 Absolute Nucleated RBC 0.000 Nucleated RBC % (auto) 0.0 APTT 40.2 H Urine Color Yellow Urine Appearance Clear Urine pH 6.0 Ur Specific [place] >= 1.030 H Urine Protein 300 (3+) H Urine Glucose (UA) Negative Urine Ketones Negative Urine Blood Trace H Urine Nitrite Negative Ur Leukocyte Esterase Moderate (2+) H Urine RBC 0-2 Urine WBC >50 H Ur Squamous Epith Cells 6-10 Urine Bacteria None Seen Hyaline Casts 0-2 Microbiology Microbiology Results: Microbiology 02/21/23 12:03 Blood Culture - Preliminary Blood - Venous No growth after 24 hours. 02/21/23 12:03 Blood Culture - Preliminary Blood - Venous No growth after 24 hours. 02/21/23 16:55 Urine Culture - Preliminary Urine clean catch - Urine floyd top No growth to date. Assessment and Plan (1) Pulmonary emboli: Status: Acute (2) Lung cancer: Status: Acute Plan Pt is a 58-year-old male with a PMH significant for?left upper lobe adenocarcinoma of lung not yet starting treatment, asthma COPD overlap syndrome, and former OUD and methadone who presents to the ED with?pleuritic left-sided chest pain and increasing shortness of breath 3 days prior. CTA positive for PE. Pt will be admitted to the hospital for treatment and further evaluation of multiple pulmonary emboli. Acute hypoxic respiratory failure related to acute pulmonary embolism r/t known lung adenocarcinoma, active tobacco use and recent surgery o2 sat 88% on room air initially on supplemental oxygen, now on room air CTA was positive for multiple small right-lung emboli and likely small left-lung emboli venous duplex was negative for DVT in bilateral lower extremity,?doppler study was negative for thrombus or DVT in the IVC BNP, trop negative, no evidence for heart strain started on therapeutic Lovenox at 1 mg/kg - seen by Oncology, can transition to Eliquis. Eliquis 10 bid x 7 days, then 5bid Monitor on telemetry echo pending UTI pt denies urinary symptoms initially treated with ceftriaxone, urine culture so far negative, will d/c abx Asthma/COPD overlap syndrome Not in acute exacerbation Continue home inhalers DuoNebs p.r.n. tobacco dependence smoking cessation advised NRT OUD continue home dose methadone, oxycodone mood continue almaz meds Full Code Attending:?Dr. Fabian DVT Prophylaxis: Eliquis Requires ongoing inpatient hospitalization for treatment of b/l pulmonary emboli Time Spent With Patient Time: Total time managing care of this patient today ____ minutes. Quality Stroke Does the patient have a stroke diagnosis?: No VTE Prior VTE?: No VTE Risk Level:: Medical - moderate - high VTE Device Contraindication: Treatment Not Indicated VTE Drug Contraindication: N/A - Med Ordered
[2023-02-22] MEDS: Apixaban 5 MG TABLET 10 MG PO (20:26)
[2023-02-22] MEDS: Mirtazapine 15 MG TABLET PO (20:26)
[2023-02-22 20:48] LABS: INTERNATIONAL NORM RATIO 1.1 (0.9-1.1); Prothrombin Time 12.3 SEC (10.0-13.1)
[2023-02-23] VITALS: BP 151/75; PULSE 57; RESP 16; TEMP 36.4; O2SAT 95
[2023-02-23] MEDS: oxyCODONE HCl Immed Release 5 MG TABLET PO ×2 (02:44→10:49)
[2023-02-23] MEDS: Acetaminophen 325 MG TABLET 650 MG PO ×2 (02:45→11:00)
[2023-02-23 03:48] VITALS: BP 152/77; PULSE 55; RESP 16; TEMP 36.6; O2SAT 95
[2023-02-23] MEDS: Fluticasone/Vilanterol 200/25 BLST.W.DEV 200 PUFF INHALE (07:50)
[2023-02-23 07:52] VITALS: BP 139/84; PULSE 63; RESP 20; TEMP 36.2; O2SAT 97
[2023-02-23 07:53] VITALS: PULSE 58; RESP 20; O2SAT 95
[2023-02-23] MEDS: methADONE HCl 20 MG/2 ML ORAL.CONC 90 MG PO (08:21)
[2023-02-23] MEDS: Docusate Sodium 100 MG CAPSULE PO (08:22)
[2023-02-23] MEDS: Lidocaine 4 % Patch ADH..PATCH 1 PATCH TRANSDERMA (08:22)
[2023-02-23] MEDS: Venlafaxine HCl ER 37.5 MG CAP.ER.24H PO (08:22)
[2023-02-23] MEDS: Apixaban 5 MG TABLET 10 MG PO (08:22)
[2023-02-23] MEDS: Atorvastatin Calcium 40 MG TABLET PO (08:22)
[2023-02-23] MEDS: Gabapentin 300 MG CAPSULE PO (08:22)
[2023-02-23] MEDS: Famotidine 20 MG TABLET PO (08:22)
[2023-02-23] MEDS: hydrOXYzine HCL 50 MG TABLET PO (08:22)
[2023-02-23] MEDS: Nicotine 21 MG PATCH.TD24 TRANSDERMA (08:22)
[2023-02-23] MEDS: 0.9 % Sodium Chloride Flush 3 ML SYRINGE IVFLUSH (08:23)
[2023-02-23 08:37] LABS: Hematocrit 36.6 % (42.0-52.0); Hemoglobin 11.4 g/dl (14.0-18.0); Mean Corpuscular HGB Conc 31.1 g/dl (31.0-36.0); Mean Corpuscular Hemoglobin 28.6 pg (27.0-33.0); Mean Platelet Volume 9.7 fL (9.4-12.4); Platelet Count 245 X10*3/uL (160-400); Red Blood Count 3.98 X10*6/uL (4.60-5.80); Red Cell Distribution Width 14.9 % (11.0-16.0); White Blood Count 6.3 X10*3/uL (4.8-10.8)
--- NOTE | 2023-02-23 10:24 | P.DS_ITS ---
DS: Providers Provider Date of Service: 02/23/23 <JOEL Ruiz - Last Filed: 02/23/23 11:18> Date of admission: 02/21/23 20:24 <JOEL Riuz - Last Filed: 02/23/23 11:18> Date of discharge: 02/23/23 <JOEL Ruiz - Last Filed: 02/23/23 11:18> Primary care physician: TERI Steele <JOEL Ruiz - Last Filed: 02/23/23 11:18> Consults: 02/21/23 20:24 Consult to Hematology / Oncology Routine Consulting Provider: Linda Ulloa Reason for consultation: Lung cancer pt with PE <JOEL Riuz - Last Filed: 02/23/23 11:18> Attending physician on discharge: Juan Jose Fabian <JOEL Ruiz - Last Filed: 02/23/23 11:18> Discharging clinician: Dominique Diaz <JOEL Ruiz - Last Filed: 02/23/23 11:18> DS: Diagnosis Discharge Diagnosis (1) Pulmonary emboli: Status: Acute <JOEL Ruiz - Last Filed: 02/23/23 11:18> (2) Lung cancer: Status: Acute <JOEL Ruiz - Last Filed: 02/23/23 11:18> DS: Summary Hospital Course Hospital Course: From H&P on day of admission Pt is a 58-year-old male with a PMH significant for?left upper lobe adenocarcinoma of lung not yet starting treatment, asthma COPD overlap syndrome, and former OUD and methadone who presents to the ED with?pleuritic left-sided chest pain and increasing shortness of breath 3 days prior.? Patient was sent to the ED from Dr. Ulloa in Oncology where he was being seen for a follow-up appointment and noted to be tachycardic and hypoxic, satting 88% on RA.? Patient states that his symptoms began on Sunday when he began to feel a sharp gnawing pain in his left side, worse with inspiration.? Patient also felt dizzy, lightheaded, and had increased SOB especially with exertion.? Patient notes that he has been much less mobile since undergoing left hip replacement surgery a little over a year ago, says he could not walk for over 4 months post surgery.? Since then he has been chronically short of breath and had limited ambulation. Pt also reports bilateral lower leg edema that is tender to the touch for the past 3 months.? He now wears sandals since he has been unable to put on sneakers since then.? Patient endorses polyuria but denies dysuria.? No fever, chills, nausea, vomiting, diarrhea.? No abdominal pain. In the ED patient was afebrile, tachypneic at 22, hypertensive up to 185/93, in setting at 88% O2 on RA. Labs were significant for stable H&H of 10.5/33.7.? Troponin, BNP negative.line renal function at baseline.? Hepatic function at baseline.? Electrolytes normal. CXR showed no overt acute abnormality. CTA was positive for multiple small right-lung emboli and likely small left-lung emboli.? Venous duplex was negative for DVT in bilateral lower extremity.? Doppler study was negative for thrombus or DVT in the IVC. EKG demonstrated normal sinus rhythm without evidence of ST elevations or depressions. Pt was treated with DuoNebs, acetaminophen, oxycodone, and Lovenox. Pt will be admitted to the hospital for treatment and further evaluation of multiple pulmonary emboli. Acute hypoxic respiratory failure related to acute pulmonary embolism CTA was positive for multiple small right-lung emboli and likely small left-lung emboli.venous duplex was negative for DVT in bilateral lower extremity,?doppler study was negative for thrombus or DVT in the IVC. Related to known lung adenocarcinoma, active tobacco use and recent surgery. Initially o2 sat 88% on room air initially on supplemental oxygen, able to be weaned down to room air. BNP, trop negative, echo obtained showing no evidence of heart strain. echo showed grade 1 diastolic dysfunction. Initially started on therapeutic Lovenox, was seen by Oncology, who recommended to transition to Eliquis. Eliquis 10 bid x 7 days, then 5bid. Bleeding risk and precautions discussed, patient understands and is in agreement. If dyspnea persists despite treatment of PE, can consider trial of lasix. Patient also states he has been unabel UTI pt denies urinary symptoms. initially treated with ceftriaxone, urine culture negative, abx discontinued <JOEL Ruiz - Last Filed: 02/23/23 11:18> Time Spent with Patient Time attestation: Total time managing care of this patient today ____ minutes. <JOEL Ruiz - Last Filed: 02/23/23 11:18> Discharge coordination time: Greater than 30 minutes <JOEL Ruiz - Last Filed: 02/23/23 11:18> Quality: Safe Use of Opioids Does Pt have an Active Cancer Diagnosis on the Problem List?: Yes <JOEL Ruiz - Last Filed: 02/23/23 11:18> Opioid Measure Date for [facility] Report: 01/24/23 <JOEL Ruiz - Last Filed: 02/23/23 11:18> 01/27/23 <Juan Jose Fabian MD - Last Filed: 02/26/23 13:32> Opioid Measure Time for [facility] Report: 11:18 <JOEL Ruiz - Last Filed: 02/23/23 11:18> 13:32 <Juan Jose Fabian MD - Last Filed: 02/26/23 13:32> Quality: Stroke Does the patient have a stroke diagnosis?: No <JOEL Ruiz - Last Filed: 02/23/23 11:18> Physical Exam Vital Signs: Vital Signs: Last Vital Signs Temp 97.2 F 02/23/23 07:52 Pulse 58 02/23/23 07:53 Resp 20 02/23/23 07:53 BP 139/84 02/23/23 07:52 Pulse Ox 97 02/23/23 07:52 O2 Del Method Room Air 02/23/23 07:52 O2 Flow Rate 2 02/21/23 10:58 Oxygen Flow Rate 2 02/21/23 10:51 BMI result Body Mass Index 42.8 <JOEL Ruiz - Last Filed: 02/23/23 11:18> Const: General: cooperative, comfortable, no acute distress, alert and awake <JOEL Ruiz - Last Filed: 02/23/23 11:18> Nutritional Appearance: overweight <JOEL Ruiz - Last Filed: 02/23/23 11:18> Orientation/consciousness: patient oriented x3 <JOEL Ruiz - Last Filed: 02/23/23 11:18> Chest: Other: small area left chest wall healing wound with no surrounding erythema <JOEL Ruiz - Last Filed: 02/23/23 11:18> Resp: Other: dim right base otherwise clear. no wheezing, no rales <JOEL Ruiz - Last Filed: 02/23/23 11:18> Effort & Inspection: normal respiratory effort, able to speak in complete sentences, no respiratory distress and no use of accessory muscles <JOEL Ruiz - Last Filed: 02/23/23 11:18> Cardio: Rate: regular rate <JOEL Ruiz - Last Filed: 02/23/23 11:18> Heart sounds: S1 normal heart sound present and S2 normal heart sound present <JOEL Ruiz - Last Filed: 02/23/23 11:18> GI: Inspection: No distended <JOEL Ruiz - Last Filed: 02/23/23 11:18> Palpation (GI): Soft to palpation <JOEL Ruiz - Last Filed: 02/23/23 11:18> Neuro: General: patient oriented x3 and CN's II-XI intact bilaterally <JOEL Ruiz - Last Filed: 02/23/23 11:18> Extrem: General: Yes no pedal edema <JOEL Ruiz - Last Filed: 02/23/23 11:18> DS: Data Data Completed and Pending Labs on day of discharge: Laboratory Results - last 24 hr 02/22/23 02/23/23 20:24 08:19 WBC 6.3 RBC 3.98 L Hgb 11.4 L Hct 36.6 L MCV 92.0 MCH 28.6 MCHC 31.1 RDW 14.9 Plt Count 245 MPV 9.7 Absolute Nucleated RBC 0.000 Nucleated RBC % (auto) 0.0 PT 12.3 INR 1.1 Preliminary micro results at discharge 02/21/23 12:03 Blood Culture - Preliminary Blood - Venous No growth after 24 hours. 02/21/23 12:03 Blood Culture - Preliminary Blood - Venous No growth after 24 hours. 02/21/23 16:55 Urine Culture - Preliminary Urine clean catch - Urine floyd top No growth to date. <JOEL Ruiz - Last Filed: 02/23/23 11:18> Discharge Plan Discharge Anticipated Discharge Date/Time: 02/23/23 10:47 <JOEL Ruiz - Last Filed: 02/23/23 11:18> Patient Disposition: Home Health Service <JOEL Ruiz - Last Filed: 02/23/23 11:18> Discharge Diagnosis: Acute pulmonary emboli <JOEL Ruiz - Last Filed: 02/23/23 11:18> Acute pulmonary emboli <Juan Jose Fabian MD - Last Filed: 02/26/23 13:32> Referrals: [facility] [Outside] - 1 Week Linda Ulloa MD [Physician] - 1 week Morena Forte FNP [Primary Care Provider] - 1 Week <JOEL Ruiz - Last Filed: 02/23/23 11:18> Discharge Medications: New Eliquis 5 mg tablet 5 mg PO BID Qty: 66 0RF Rx Instructions: Take 2 tabs twice daily for 6 more days, then take 1 tab twice daily after that lidocaine [Lidoderm] 5 % adhesive patch,medicated 1 patch topical DAILY Qty: 30 0RF Rx Instructions: leave on most painful area for up to 12 hrs Continued nicotine 21 mg/24 hr Patch 24 Hour 1 patch TRANSDERMAL DAILY gabapentin 300 mg Capsule 300 mg PO BID sennosides [Evac-U-Gen (sennosides)] 8.6 mg tablet 8.6 mg PO BEDTIME PRN (Reason: Constipation) venlafaxine 37.5 mg Capsule,Extended Release 24hr 37.5 mg PO DAILY mirtazapine 15 mg Tablet 15 mg PO BEDTIME methadone 10 mg/mL syringe 90 mg PO DAILY hydroxyzine HCl 50 mg tablet 50 mg PO DAILY docusate sodium 100 mg capsule 100 mg PO DAILY famotidine 20 mg tablet 20 mg PO DAILY oxycodone 5 mg tablet 5 mg PO Q8H PRN (Reason: Pain (Scale Score 7-10)) Trelegy Ellipta 200-62.5-25 mcg blister with device 1 inh inhalation DAILY 30 Days Qty: 60 12RF <JOEL Ruiz - Last Filed: 02/23/23 11:18> Discharge Orders: Discharge Order (Routine); Ordered 02/23/23 Ordered By: Dominique Diaz <JOEL Ruiz - Last Filed: 02/23/23 11:18> Activity on Discharge: As tolerated <JOEL Ruiz - Last Filed: 02/23/23 11:18> As tolerated <Juan Jose Fabian MD - Last Filed: 02/26/23 13:32> Stand Alone Forms: Patient Portal Discharge page <JOEL Ruiz - Last Filed: 02/23/23 11:18> Care Plan Goals: improvement in respiratory symptoms; treatment of pulmonary embolism <JOEL Ruiz - Last Filed: 02/23/23 11:18> Health Concerns: pulmonary embolism <JOEL Ruiz - Last Filed: 02/23/23 11:18> Plan of Treatment: you have been started on a blood thinner called Eliquis for treatment of blood clots in your lungs. Take 10 mg (2 tabs) twice daily for 6 more days and then take 5 mg (1 tab) twice daily moving forward Keep scheduled follow-up appointment with Oncology Call to schedule follow-up appointment with PCP Monitor for signs of bleeding as discussed <JOEL Ruiz - Last Filed: 02/23/23 11:18> Assessment: See discharge summary <JOEL Ruiz - Last Filed: 02/23/23 11:18> Patient Instructions: Chest Pain (DC), Pulmonary Embolism (DC) <JOEL Ruiz - Last Filed: 02/23/23 11:18> Discharge Date/Time: 02/23/23 14:26 <JOEL Ruiz - Last Filed: 02/23/23 11:18>
--- NOTE | 2023-02-23 11:22 | MHC.CM.PN ---
Patient has been medically cleared for dc to home today, with services. Patient is active with [facility], who has been notified of todays dc.
[2023-02-23 11:42] VITALS: BP 147/79; PULSE 67; RESP 20; TEMP 36.4; O2SAT 95
== END 2023-02-23 14:26 | disposition home health service (06) | DRG 134 ==
LOC: HO.ED 18:14 → HO.EDOVER 22:35 → HO.IMC 02-22 07:47
PROVIDERS: Nurse Practitioner Family; Admitting Provider Student in an Organized Health Care Education/Training Program; Emergency Provider Student in an Organized Health Care Education/Training Program; PCP Registered Nurse; Visit Provider Physician Assistant Medical
DX: I26.99 Other pulmonary embolism without acute cor pulmonale (principal); J96.01 Acute respiratory failure with hypoxia; C34.12 Malignant neoplasm of upper lobe, left bronchus or lung; E78.5 Hyperlipidemia, unspecified; F11.20 Opioid dependence, uncomplicated; J44.9 Chronic obstructive pulmonary disease, unspecified; G47.33 Obstructive sleep apnea (adult) (pediatric); F41.8 Other specified anxiety disorders; E66.9 Obesity, unspecified; F17.210 Nicotine dependence, cigarettes, uncomplicated; Z68.41 Body mass index [BMI] 40.0-44.9, adult; Z20.822 Contact with and (suspected) exposure to COVID-19; Z71.6 Tobacco abuse counseling; Z90.2 Acquired absence of lung [part of]; Z88.0 Allergy status to penicillin; Z79.51 Long term (current) use of inhaled steroids; Z79.899 Other long term (current) drug therapy
CPT/HCPCS: 36415; 71046; 71275; 80048; 80076; 81001; 83605; 83735; 83880; 84484; 85025; 85027; 85610; 85730; 87040; 87086; 87635; 93005; 93306; 93970; 93975; 94640; 99285; J0696; J1650; Q9957; Q9967

== ENCOUNTER 2023-02-27 09:20 | Outpatient (REF) | payer MEDICAID, SELFPAY ==
--- NOTE | ~2023-02-27 | PE_ITS ---
EXAMINATION: Fluorine-18 FDG PET/CT Scan CLINICAL INDICATION: Initial treatment management. Left upper lobar lung cancer staging. PROCEDURE: 60 minutes following the intravenous administration of 16.3 mCi of fluorine 18 FDG, images from the base of the skull to the mid thighs were obtained using a combined PET/CT scanner with CT scan based attenuation correction. No intravenous contrast was administered. Transverse, coronal, sagittal, and volume reconstruction projections were obtained. The patient's blood glucose as determined by a finger stick, was 119 mg/dl immediately prior to injection. The radiotracer was injected intravenously through left antecubital superficial vein, without any complications. Total CT exam dose-length product 1491.05 mGy-cm * These CT images were obtained using dose optimization techniques as appropriate, variously including the following: Automated exposure control * Adjustment of mA and/or kV according to patient size (this includes techniques or standardized protocols for targeted exams where dose is matched to indication/reason for exam; i.e. extremities or head) * Use of iterative reconstruction technique COMPARISON: CT of the chest done on 02/21/2023, 01/17/[address] of the chest done on 10/27/2022. FINDINGS: NECK AND VISUALIZED HEAD: No FDG avid suspicious focal disease. THORAX: Postsurgical changes are noted at left perihilar region extending into the left posterior upper and left mid hemithoracic region. Persistent nonspecific non-FDG avid pleuroparenchymal disease is noted along the suture line, similar to prior postoperative studies done on 02/21/2023 and 01/17/2023, likely represent postsurgical evolving scar/atelectasis or combination thereof. Specifically, no evidence of any focal FDG avid disease identified on either hemithorax to suspect malignancy. No FDG avid mediastinal and/or hilar or axillary or internal mammary lymphadenopathy. Trace amount of left-sided pleural effusion, thickening or combination thereof is noted, likely represent postsurgical change as well. No FDG avid pleural or pericardial effusion. ABDOMEN AND PELVIS: No FDG avid liver, spleen or adrenal disease. The gallbladder, biliary tree, pancreas appear unremarkable. Physiologic radiotracer activities within the kidneys and the bladder. MUSCULOSKELETAL: FDG avid healing rib fractures are noted within the left lower posterolateral hemithorax, specifically involving left seventh, eighth, ninth ribs and the intercostal musculature between the ninth and 10th ribs, most consistent with postsurgical changes. Note is also made of bilateral metallic hip prosthesis. Significant muscular activity is noted within the gluteal muscles bilaterally, likely physiologic. Asymmetric increased muscular activity is also noted within the right upper neck along the paraspinal region. VASCULAR: Unremarkable. Specifically, no evidence of aneurysm or significant calcific atherosclerotic disease. SUV max OF MEDIASTINAL BLOOD POOL: 3.4 SUV max OF LIVER: 2.9 PET/PET CT fusion skull to thigh IMPRESSION: 1. Postsurgical changes are noted within the left hemithorax without any FDG avid disease to suspect residual or recurrent disease in this patient with history of recent surgical resection of left upper lobar lung cancer. Note is however made of persistent nonspecific non-FDG avid pleuroparenchymal disease seen along the course of the suture line, likely represent postsurgical evolving scar, atelectasis or combination thereof. Follow-up imaging as appropriate to ensure stability and/or resolution is recommended. 2. No FDG avid mediastinal or hilar or axillary lymphadenopathy or definite extrathoracic disease to suspect metastasis. 3. Incidental note is made of multiple adjacent FDG avid left lower posterolateral hemithoracic ribs (7-9) and adjacent intercostal muscle between the ninth and 10th ribs, most consistent with postsurgical changes.
== END 2023-02-27 09:21 | disposition home or self-care (01) ==
LOC: HO.PET 09:20
PROVIDERS: PCP Registered Nurse; Visit Provider Internal Medicine
DX: Z13.89 Encounter for screening for other disorder (principal)

== ENCOUNTER → 2023-03-02 15:21 | Outpatient (BNVA) | payer MEDICAID, SELFPAY | PROVIDERS: PCP Registered Nurse; Visit Provider Hospitalist | DX: C34.90 Malignant neoplasm of unspecified part of unspecified bronchus or lung (principal); J44.9 Chronic obstructive pulmonary disease, unspecified; R06.02 Shortness of breath; R91.1 Solitary pulmonary nodule; R07.81 Pleurodynia; I26.99 Other pulmonary embolism without acute cor pulmonale; G89.12 Acute post-thoracotomy pain; F17.210 Nicotine dependence, cigarettes, uncomplicated | CPT/HCPCS: 99212 ==

== ENCOUNTER → 2023-03-16 12:46 | Outpatient (BNVA) | payer MEDICAID, SELFPAY | PROVIDERS: PCP Registered Nurse; Visit Provider Nurse Practitioner Family | DX: C34.12 Malignant neoplasm of upper lobe, left bronchus or lung (principal); J44.9 Chronic obstructive pulmonary disease, unspecified; G89.12 Acute post-thoracotomy pain; F17.210 Nicotine dependence, cigarettes, uncomplicated | CPT/HCPCS: 99212 ==

== ENCOUNTER → 2023-03-26 11:39 | Outpatient (BNVA) | payer MEDICAID, SELFPAY | PROVIDERS: PCP Registered Nurse; Referring Provider Internal Medicine; Visit Provider Surgery | DX: Z45.2 Encounter for adjustment and management of vascular access device (principal); C34.92 Malignant neoplasm of unspecified part of left bronchus or lung | CPT/HCPCS: 99202 ==

== ENCOUNTER 2023-03-28 10:13 | Day surgery (SDC) | payer MEDICAID, SELFPAY ==
--- NOTE | 2023-03-27 10:03 | MHC.SHP ---
Pre-Procedural Eval Section A Date of Service: 03/27/23 The patient is an INPATIENT: No Changes since office visit: No Cold of Flu in the past 2 weeks, No New Medical Problems, No Changes in Medication and No Patient answered all questions The History & Physical has been completed within 30 days and I have reviewed it.: Yes Section B Chief Complaint: Malignant neoplasm of unspec. part of left lung Allergies: Allergies Allergy/AdvReac Type Severity Reaction Status Date / Time Penicillins [PENICILLINS] Allergy Unknown UNKNOWN Verified 03/26/23 11:46 Plan I have reviewed the history and physical and performed a pertinent physical examination on my patient. No changes have occurred unless specified. Time Spent With Patient Time: Total time managing care of this patient today ____ minutes.
--- NOTE | 2023-03-27 10:09 | P.CONAN_ITS ---
Documented by User: Elif Jenkins NP 03/27/23 10:12 HPI - Anesthesia Eval Consult details Narrative: 58yo M for Port-a-Cath Insertion,Fluoroscopy Doppler u/s s/p Left Upper Lung resect for CA Continues to smoke Methadone daily PMFSH Active Problems Active Problems: All Active Problems (Updated 03/16/23 @ 11:22 by Linda Ulloa MD) Admission for fitting of Port-A-Cath (Acute) Non-small cell cancer of left lung (Acute) Pleuritic chest pain (Acute) Post-thoracotomy pain syndrome (Acute) Pulmonary emboli (Acute ~02/2023) Left upper lobe pulmonary nodule (Acute) Asthma-COPD overlap syndrome (Acute) Nicotine dependence, cigarettes, uncomplicated (Acute) SOB (shortness of breath) (Acute) Atherosclerotic cardiovascular disease (Acute) Anomalous right coronary artery (Acute) Abnormal myocardial perfusion study (Acute) Constipation (Acute) Past Medical History Medical History (Updated 03/28/23 @ 10:55 by Danette Zhang RN) Asthma-COPD overlap syndrome Depression with anxiety Hepatitis C History of CVA (cerebrovascular accident) (~2008) HLD (hyperlipidemia) Lung cancer (~2022) Methadone maintenance therapy patient Nicotine dependence, cigarettes, uncomplicated Obesity DA (obstructive sleep apnea) Osteoarthritis Pleuritic chest pain Post-thoracotomy pain syndrome Pulmonary emboli Family History Family History Father No problems noted. Mother Family history of high blood pressure Hx of diabetes insipidus Surgical History Surgical History (Updated 03/28/23 @ 10:53 by Danette Zhang RN) History of bilateral hip replacements History of carpal tunnel surgery History of colonoscopy History of esophagogastroduodenoscopy (EGD) History of left inguinal hernia repair History of lung surgery Hx of appendectomy Social History Social History Household Members: None Housing: Apartment Do you presently have visiting nurse or other home services: Yes Alcohol intake: former Patient Tobacco Use Status: Current everyday Tobacco user Tobacco use type: Cigarette Cigarettes Per Day: 15 Years Smoked: (onset 13yo, 1ppd x 44yrs, now 3/4ppd, 40pyh) e-Cigarette/Vaping Use: Currently Using Use of substances other than those prescribed or required for medical reasons: No Substance Use Type Other:: 3 1/2 yrs ago Are you DNR?: No Advance Directives: No Advance Directives Information Provided: Yes service: No Current occupational status: disabled Meds Allergies Allergy/AdvReac Type Severity Reaction Status Date / Time Penicillins [PENICILLINS] Allergy Unknown UNKNOWN Verified 03/28/23 10:54 Active Medications: Current Medications Clindamycin Phosphate (Cleocin) 900 mg in 50 mls @ 50 mls/hr IV PREOP ONE Stop: 03/27/23 11:01 Home Medications Medication Instructions Recorded Confirmed Last Taken Type methadone 10 mg/mL oral syringe 90 mg PO DAILY 09/06/20 03/28/23 03/28/23 05:00 History (FOR ORAL USE ONLY) gabapentin 300 mg capsule 300 mg PO BID 02/21/23 03/28/23 03/28/23 05:00 History sennosides 8.6 mg tablet 8.6 mg PO BEDTIME PRN Constipation 02/21/23 03/28/23 Unknown History (Evac-U-Gen (sennosides)) mirtazapine 15 mg tablet 15 mg PO BEDTIME 02/22/23 03/28/23 Unknown History venlafaxine 37.5 mg 37.5 mg PO DAILY 02/22/23 03/28/23 03/28/23 05:00 History capsule,extended release 24 hr methadone 10 mg/mL oral syringe 30 mg PO BEDTIME 03/16/23 03/28/23 Unknown History (FOR ORAL USE ONLY) furosemide 20 mg tablet 20 mg PO DAILY 03/28/23 03/28/23 03/28/23 05:00 History multivitamin 1 tab PO DAILY 03/28/23 03/28/23 03/28/23 05:00 History Exam Exam Date and Time: March 27, 2023 1009 Pertinent Lab Results Pertinent Lab Results: Laboratory Tests 03/16/23 03/16/23 11:53 11:53 WBC 8.5 Hgb 12.2 L Hct 38.5 L Plt Count 300 Sodium 144 Potassium 4.4 Chloride 105 Carbon Dioxide 29 BUN 15 Creatinine 1.33 Narrative Narrative: EKG 02/2023 Vent. Rate : 066 BPM ? ? Atrial Rate : 066 BPM ?? P-R Int : 184 ms? QRS Dur : 096 ms ? ? QT Int : 440 ms ? ? ? P-R-T Axes : 055 -06 010 degrees ?? QTc Int : 461 ms ? Normal sinus rhythm NST noted Borderline ECG When compared with ECG of 17-JAN-2023 16:21, No significant change was found ECHO 02/2023 Conclusions: - 1. Technically limited study despite use of contrast agent ? ? 2. Normal LV systolic function with mild LVH with grade 1? diastolic dysfunction? 3. Cardiac valves not well visualized but cardiac valvular ? ? ? Doppler within normal limits ? Assessment and Plan Assessment Anesthesia Assessment: Chart Reviewed Documented by User: Hector Gomez MD 03/28/23 11:50 [facility] Past Medical History Medical History (Updated 03/28/23 @ 10:55 by Danette Zhang RN) Asthma-COPD overlap syndrome Depression with anxiety Hepatitis C History of CVA (cerebrovascular accident) (~2008) HLD (hyperlipidemia) Lung cancer (~2022) Methadone maintenance therapy patient Nicotine dependence, cigarettes, uncomplicated Obesity DA (obstructive sleep apnea) Osteoarthritis Pleuritic chest pain Post-thoracotomy pain syndrome Pulmonary emboli Family History Family History Father No problems noted. Mother Family history of high blood pressure Hx of diabetes insipidus Family history of problems with anesthesia: No Surgical History Surgical History (Updated 03/28/23 @ 10:53 by Danette Zhang RN) History of bilateral hip replacements History of carpal tunnel surgery History of colonoscopy History of esophagogastroduodenoscopy (EGD) History of left inguinal hernia repair History of lung surgery Hx of appendectomy History of Problems with Anesthesia: No Social History Social History Household Members: None Housing: Apartment Do you presently have visiting nurse or other home services: Yes Alcohol intake: former Patient Tobacco Use Status: Current everyday Tobacco user Tobacco use type: Cigarette Cigarettes Per Day: 15 Years Smoked: (onset 13yo, 1ppd x 44yrs, now 3/4ppd, 40pyh) e-Cigarette/Vaping Use: Currently Using Use of substances other than those prescribed or required for medical reasons: No Substance Use Type Other:: 3 1/2 yrs ago Are you DNR?: No Advance Directives: No Advance Directives Information Provided: Yes service: No Current occupational status: disabled Meds Allergies Allergy/AdvReac Type Severity Reaction Status Date / Time Penicillins [PENICILLINS] Allergy Unknown UNKNOWN Verified 03/28/23 10:54 Home Medications Medication Instructions Recorded Confirmed Last Taken Type methadone 10 mg/mL oral syringe 90 mg PO DAILY 09/06/20 03/28/23 03/28/23 05:00 History (FOR ORAL USE ONLY) gabapentin 300 mg capsule 300 mg PO BID 02/21/23 03/28/23 03/28/23 05:00 History sennosides 8.6 mg tablet 8.6 mg PO BEDTIME PRN Constipation 02/21/23 03/28/23 Unknown History (Evac-U-Gen (sennosides)) mirtazapine 15 mg tablet 15 mg PO BEDTIME 02/22/23 03/28/23 Unknown History venlafaxine 37.5 mg 37.5 mg PO DAILY 02/22/23 03/28/23 03/28/23 05:00 History capsule,extended release 24 hr methadone 10 mg/mL oral syringe 30 mg PO BEDTIME 03/16/23 03/28/23 Unknown History (FOR ORAL USE ONLY) furosemide 20 mg tablet 20 mg PO DAILY 03/28/23 03/28/23 03/28/23 05:00 History multivitamin 1 tab PO DAILY 03/28/23 03/28/23 03/28/23 05:00 History Exam Airway Mallampati Class: II TM Dist: >3cm Neck ROM: Limited Heart: rrr Lungs: diminished bs Assessment and Plan Assessment Anesthesia Assessment: Anesthesia Plan Discussed Final Anesthetic Review Family History of Problems with Anesthesia: No History of Problems with Anesthesia: No NPO: Yes ASA Class: IV Final Preanesthetic Review: No Changes in Pt Med Stat, Meds/Allgs Chart Reviewed, Consent Obtained/Reviewed and Anes Risks/Benef Reviewed Patient Risk: High Procedure Risk: Low Assessment/Block/Sedation in SS: Assess/Block/Sedation-SS Anesthetic Plan Anesthetic Plan: MAC: and Agree w/ Assess. and Plan Disposition: Standard PACU
[2023-03-28] VITALS (7 sets, daily range): BP systolic 124–172; BP diastolic 61–98; PULSE 59–67; RESP 16–20; TEMP 36.4; O2SAT 92–98; BMI 41.8
--- NOTE | ~2023-03-28 | FL_ITS ---
EXAMINATION: XR FLUOROSCOPY WITH IMAGES CLINICAL INFORMATION: Port-A-Cath insertion. COMPARISON: None available. TECHNIQUE: Fluoroscopy Supervised By: Dr. Berger. Fluoroscopy Time: 75.5 seconds. Cumulative Dose: 25.36 mGy. DAP: Gycm2. Images: 1. FINDINGS: Image demonstrates right internal jugular Port-A-Cath with tip projecting over the SVC FL/FL guidance in OR IMPRESSION: Fluoroscopy guidance for Port-A-Cath placement
--- NOTE | 2023-03-28 13:13 | W.PM.OPN ---
Operative Note Operative Note Date of Service: 03/28/23 Narrative: Preoperative diagnosis: []Metastatic lung cancer Postop diagnosis: [] save Procedure [] right internal jugular vein Port-A-Cath placement with Doppler ultrasound guidance and fluoroscopy Surgeon: [] Ab Ring Making Machine Operator: [] Type of Anesthesia: [] MAC Indication for surgery: [] chemotherapy Findings: [] patient brought to operating room, placed on operative table in supine position, after adequate level of MAC anesthesia was induced, the right neck and chest were prepped and draped in usual sterile fashion. Patient was placed in Trendelenburg position, and using Doppler ultrasound guidance, the right internal jugular vein was cannulated and a wire advanced level of superior vena cava under fluoroscopic guidance. Pocket was fashioned approximately 3 finger breaths below cannulation site, and tunneled to the wire. Catheter was placed through the subcutaneous tunnel, connected to the port, the port secured to the pocket using 3-0 Vicryl sutures. Dilating sheath was then placed over the wire again under fluoroscopic guidance and a wire retrieved. The pre- hep -flushed catheter was then advanced to the level of superior vena cava under fluoroscopic guidance. Antegrade and retrograde flow were tested several times with no difficulties. Chest x-ray from fluoroscopy was performed for permanent documentation demonstrating catheter in good position and no pneumothorax. Wound was irrigated, secured hemostasis, and closed in the following manner; interrupted inverted dermal 3-0 Vicryl sutures were used to close all incision sites. The port was again checked for ante- grade and retrograde flow which was easily established. Steri-Strips and sterile dressings were applied. Sponge, needle, instrument counts reported correct. Patient tolerated the procedure well and emerged anesthesia stable condition. EBL minimal
[2023-03-28] MEDS: Acetaminophen 325 MG TABLET 650 MG PO (13:37)
[2023-03-28] MEDS: oxyCODONE HCl Immed Release 5 MG TABLET PO (13:38)
[2023-03-28] MEDS: fentaNYL citrate/PF 100 MCG/2 ML VIAL 50 MCG IVPUSH ×2 (13:39→13:48)
== END 2023-03-28 14:50 | disposition home or self-care (01) ==
PROVIDERS: PCP Registered Nurse; Visit Provider Surgery
PROC: (CPT 36561; principal; 2023-03-28 11:40)
DX: Z45.2 Encounter for adjustment and management of vascular access device (principal); C34.92 Malignant neoplasm of unspecified part of left bronchus or lung; J44.9 Chronic obstructive pulmonary disease, unspecified; Z86.711 Personal history of pulmonary embolism; Z79.01 Long term (current) use of anticoagulants; Z88.0 Allergy status to penicillin; F17.210 Nicotine dependence, cigarettes, uncomplicated; F11.20 Opioid dependence, uncomplicated; Z86.73 Personal history of transient ischemic attack (TIA), and cerebral infarction without residual deficits
CPT/HCPCS: 36561; C1788; J1642; J1643; J2250; J3010

== ENCOUNTER 2023-05-14 12:42 | Outpatient (REF) | payer MEDICAID, SELFPAY ==
--- NOTE | ~2023-05-14 | US_ITS ---
EXAMINATION: US VENOUS ULTRASOUND WITH DOPPLER LOWER EXTREMITY, LEFT CLINICAL INFORMATION: Lower extremity edema COMPARISON: None available. TECHNIQUE: Ultrasound of the deep veins is performed from the hip to the calf with compression sonography and color and pulse Doppler assessment. Spectral analysis with color-flow imaging is performed. Technical limitation secondary to pain. FINDINGS: There is normal venous compression and respiratory variation and augmented flow. The visualized common femoral vein, superficial femoral vein, profunda femoral vein, popliteal vein, and the trifurcation region shows no evidence of deep venous thrombosis. There is no significant popliteal fossa cyst. Contralateral common femoral vein is patent. If the patient's symptoms persist, followup ultrasound in 5 days 7 days might be of value to exclude proximal propagation from a non-visualized calf vein. US/US venous duplex LE LT IMPRESSION: No DVT demonstrated in the left lower extremity.
== END 2023-05-14 12:43 | disposition home or self-care (01) ==
LOC: HO.US 12:42
PROVIDERS: PCP Registered Nurse; Visit Provider Registered Nurse
DX: R60.0 Localized edema (principal)
CPT/HCPCS: 93971

== ENCOUNTER 2023-05-30 14:36 | Outpatient (AMB) | payer MEDICAID, SELFPAY ==
--- OUTSIDE RECORDS SUMMARY | 2023-05-30 14:38 | XMS_ITS | Continuity of Care Document ---
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 Name Role Phone Reanna PERSON, Morena Berg Primary Care Physicia n Encounter [facility] Date(s): 04/02/23 - 04/03/[address] [address]- Encounter Diagnosis Shortness of breath(Final) - 04/02/23 COPD exacerbation(Final) - 04/02/23 Discharge Disposition: A-D/C Home Attending Physician: Jean Singh MD Admitting Physician: Michelle Driscoll MD Referring Physician: Not on Staff, Referring [...] mg, By Mouth, 3 times a day, PRN Pain , Mild, 0 Refills, Maintenance, 11/21/19 19:23:00 EST Start Date: 11/21/19 Status: Ordered azithromycin 250 mg oral tablet 1 tablet = 250 mg, By Mouth, Daily at bedtime, for 2 days, # 2 tablet, 0 Refills, Acute 04/05/23 9:36:00 EDT, 04/03/23 9:36:00 EDT, Tablet, [facility], Partial fill upon patient requestif the prescription is for a schedule II opioid ree... Start Date: 04/03/23 Stop Date: 04/05/23 Status: Ordered chantix chantix, Refills 0, Maintenance, 03/15/21 13:31:00 EDT, Supply Start Date: 03/15/21 Status: Ordered clonazePAM 0.5 mg oral tablet TAKE 2 TIMES A DAY NEEDED FOR AGITATION AND ANXIETY Start Date: 04/03/23 Status: Ordered dexamethasone 4 mg oral tablet TAKE 1 TABLET BY MOUTH TWICE DAILY AFTER CHEMOTHERAPY FOR 2 DAYS Start Date: 04/03/23 Status: Ordered Eliquis 5 mg oral tablet 1 tablet = 5 mg, By Mouth, 2 times a day, # 60 tablet, 5 Refills, Maintenance, 04/03/23 7:31:00 EDT, Tablet, Partial fill upon patient request if the prescription is for a schedule II opioid drug. Start Date: 04/03/23 Status: Ordered gabapentin 300 mg oral capsule 600 mg, Capsule, By Mouth, 04/03/23 9:00:00 EDT Start Date: 04/03/23 Stop Date: 04/03/23 Status: Completed gabapentin 600 mg oral tablet = 600 [...] opioid drug. Start Date: 02/15/21 Status: Ordered predniSONE 20 mg oral tablet 2 tablet = 40 mg, By Mouth, Daily, for 5 days, # 10 tablet, 0 Refills, Acute 04/08/23 9:37:00 EDT, 04/03/23 9:37:00 EDT, Tablet, [facility] 3, Partial fill upon patient request if the prescription is for a schedule II opioid drug., 173, cm... Start Date: 04/03/23 Stop Date: 04/08/23 Status: Ordered ProAir HFA 90 mcg/inh inhalation aerosol 2 puffs, Inhalation, Every 6 hours, PRN Wheezing/Shortness of Breath, 0 Refills, Maintenance, 01/12/22 9:00:00 EDT, Partial fill upon patient request if the prescription is for a schedule II opioid drug. Start Date: 01/12/22 Status: Ordered Spiriva HandiHaler 18 mcg inhalation capsule 1 capsule = 18 mcg, Inhalation, Daily, # 30 capsule, 1 Refills, Maintenance, 04/03/23 9:37:00 EDT, [facility], Partial fill upon patient request if the prescription is for a schedule IIopioid drug., 173, cm, 04/03/23 7:33:00 EDT, Height... Start Date: 04/03/23 Status: Ordered Symbicort 160mcg/4.5mcg Inhaler 2, puffs, Inhalation, 2 times a day, # 10.2 Gm, Refills 1, Tot. Refills 1, Maintenance, 04/03/23 9:37:00 EDT, Aerosol, Route to Pharmacy Electronically, [id number], [facility], 173, cm, 04/03/23 7:33:00 EDT, Hei... Start Date: 04/03/23 Status: Ordered traZODone 150 mg oral tablet 1 tablet = 150 mg, By Mouth, Daily at bedtime, # 30 tablet, 0 Refills, Maintenance, 01/12/22 9:00:00 EDT, Tablet, Partial fill upon patient request if the prescription is for a schedule II opioid drug. Start Date: 01/12/22 Status: Ordered Wellbutrin XL 150 mg/24 hours [...] Exam Date Time Procedure Performing Provider Status 04/02/23 1:35 PM Chest 2 Views Frontal and Lat Dhruv , Gail; Auth (Verified) Notes: (Chest 2 Views Frontal and Lat) Reason For Exam: Shortness of Breath, Fever;Other: RESULT: Chest 2 Views Frontal and Lat Chest 2 Views Frontal and Lat HX OF PRESENT ILLNESS: coming in for shortness of breath from [facility]. SOB, diaphoretic. Took pt off trelegy 1 week ago. SP Partial lobectomy 1 month ago (left side). Port place 1 week ago in R chest. Lung CA, starting chemo . Intermittent CP, none currently.; Reason: Shortness of Breath, Fever; Clinical Question(s): Pneumonia COMPARISON: Chest radiograph from 02/06/2023. FINDINGS: LINES AND TUBES: Right-sided Port-A-Cath with tip in the proximal SVC. LUNGS AND PLEURA: Postsurgical sutures consistent with partial lobectomy are seen in the left upper lobe. No focal consolidation. Bibasilar atelectasis. Small left pleural effusion, with fluid tracking along the fissure.. No pneumothorax. HEART, MEDIASTINUM AND GINA: Heart is normal in size. Normal mediastinal and hilar contour. BONES AND SOFT TISSUES: No acute abnormality. Moderate degenerative changes of the spine. IMPRESSION: 1. Small left pleural effusion. 2. Interval placement of a right-sided Port-A-Cath with tip in the proximal SVC. I have personally reviewed the images and I agree with this report. WSN: [id number] Ordering Physician: Yolanda Millard Dictated By: Rupert Arrieta MD Dictated Date/Time: 04/02/23 1:58 pm Reviewed By: Piero Umanzor MD Signed By: Piero Umanzor MD Signed Date/Time: 04/02/23 2:03 pm Transcribed By: PEDRO LUIS Transcribed Date/Time: 04/02/23 1:48 pm Vital Signs Most recent to oldest [Reference Range]: 1 2 3 Height 173 cm (04/03/23 10:52 AM) 173 cm (04/03/23 7:33 AM) 173 cm (04/03/23 4:21 AM) Weight 128.9 kg (04/03/23 12:54 AM) Oxygen Saturation [94-100 %] 95 % (04/03/23 10:52 AM) 93 % *L* (04/03/23 7:33 AM) 94 % (04/03/23 4:21 AM) Pulse Rate [55-90 bpm] 64 bpm (04/03/23 10:52 AM) 62 bpm (04/03/23 7:33 AM) 63 bpm (04/03/23 4:21 AM) Body Mass Index [18.5-24.99 kg/m2] 43.07 kg/m2 *>HHI* (04/03/23 12:54 AM) Blood Pressure [90-138/55-84 mm Hg] 134/73mm Hg (04/03/23 10:52 AM) 107/55mm Hg (04/03/23 7:33 AM) 119/66mm Hg (04/03/23 4:21 AM) Respiratory Rate [16-30 br/min] 17 br/min (04/03/23 10:52 AM) 18 br/min (04/03/23 9:08 AM) 18 br/min (04/03/23 8:35 AM) Temperature [96.8-100.4 DegF] 97.8 DegF (04/03/23 10:52 AM) 98.0 DegF (04/03/23 7:33 AM) 98 DegF (04/03/23 4:21 AM) Mode of Delivery (Oxygen) Room air (04/03/23 10:52 AM) Room air (04/03/23 7:33 AM) Room air (04/03/23 4:21 AM) Blood pressure sites Arm, right (04/03/23 10:52 AM) Arm, right (04/03/23 7:33 AM) Arm, right (04/03/23 4:21 AM) Temperature Route Oral (04/03/23 10:52 AM) Oral (04/03/23 7:33 AM) Oral (04/03/23 4:21 AM) Dry Weight 128.9 kg (04/03/23 12:54 AM) Weight Obtained Via Bed scale (04/03/23 12:54 AM) Dry Weight Obtained Via Bed scale (04/03/23 12:54 AM) Social History Social History Type Response Smoking Status Current every day sm david; Type: Cigarettes; Type: Oral entered on: 06/30/15 Sex Admission evaluation note * Bob OLIVER, Nicki Jauregui: MODIFY, MODIFY, PERFORM Event Display: Admission Note Authored Date: [id number] Patient: ??ERIC MCCLOUD ? Age:??58 Years?Sex:??Male?:??1965?? Chief Complaint/Reason for Consultation Coming from walk in clinic in [facility], diaphoretic. Took pt off trelegy 1 week ago. SP Partial lobectomy 1 month ago (left side). Port place 1 week ago in R chest. Lung CA, starting chemo . Intermittent CP, none currently. History of Present Illness 58-year-old male with PMH of lung cancer s/p left-sided lobectomy, tobacco use disorder, as per patient??recently diagnosed bilateral??pulmonary embolism??started on Eliquis 2 weeks ago??[no records in our system]??came to the ED with worsening shortness of breath. ?? Patient medical chart reviewed, seen and examined at bedside.?? Patient states that he has a trilogy Ellipta inhaler has been stopped week ago due to insurance issues and since then has been noticed progressively worsening shortness of breath with minimal exertion and sometimes at rest.?? Also complains of intermittent pleuritic type chest pain, diaphoresis, nausea.?? Denies any fevers, chills, nausea, vomiting, cough, sore throat, runny nose, abdominal pain, constipation, diarrhea, dysuria.?? Endorses compliance with his medications.?? Patient recently had a right-sided Port-A-Cath placed and about to initiate chemotherapy from .?? Patient by the time of my evaluation states??his breathing has significantly improved??and he is able to speak in full sentences. ?? Initially in the ED patient remains afebrile, HR 63, RR 19, BP 119/66, saturation 94% on room air.?? No leukocytosis WBC of 7.3, Hgb of 10.9, PLT 275, Lites normal, BUN/creatinine 17/1.3, blood glucose 136, proBNP 149, troponin 16-18-20, chest x-ray with a small left-sided pleural effusion, new Port-A-Cath in place, C-19 negative.?? Patient received DuoNebs, aspirin 324, azithromycin 500, ceftriaxone, Solu-Medrol 125 mg in the ED.?? Patient will be admitted to observation medicine service for COPD exacerbation Review of Systems All the systems are reviewed and are negative, except as above Objective Measurements?? Height: 173 cm (04/03/23) Weight: 128.9 kg (04/03/23) Dry Weight: 128.9 kg (04/03/23) Body Mass Index:??43.07 kg/m2??Critical (04/03/23) ? Vital Signs?? Temperature: 98 DegF (04/03/23 04:21:00) Temperature Route: Oral (04/03/23 04:21:00) Pulse Rate: 63 bpm (04/03/23 04:21:00) Respiratory Rate: 18 br/min (04/03/23 06:03:00) Systolic Blood Pressure: 119 mm Hg (04/03/23 04:21:00) Diastolic Blood Pressure: 66 mm Hg (04/03/23 04:21:00) Blood pressure sites: Arm, right (04/03/23 04:21:00) Mean Arterial Pressure: 84 mm Hg (04/03/23 04:21:00) Pulse Pressure: 53 mm Hg (04/03/23 04:21:00) Oxygen Saturation: 94 % (04/03/23 04:21:00) Mode of Delivery (Oxygen): Room air (04/03/23 04:21:00) Early Warning Score: 2 (04/03/23 06:04:39) ? Pain Scores?? No qualifying data available. ? Intake/Output? No Data Available ?? Precautions No Precautions documented.? Physical Exam ?? Gen- not in acute distress,comfortabily lying on bed, speaking in full sentences. HEENT- Normocephalic, Atraumatic. No pallor, icterus Neck-supple, no JVD Heart-S1S2(+),??regular, no murmurs lungs-poor??bilateral air entry, no wheezing??heard Abdomen-soft, nontender,nondistended,??bowel sounds present , No guarding, No rigidity, No rebound tenderness. Extremities-pulses palpable??2+. No pedal edema. Neurological- AAO??3. No focal neurological deficits noted. Psychiatric-patient???s mood is stable. ? (04/02/2023 13:35 EDT Chest 2 Views Frontal and Lat) IMPRESSION: ?? 1. ??Small left pleural effusion. 2. ??Interval placement of a right-sided Port-A-Cath with tip in the proximal SVC. Assessment/Plan 58-year-old male with PMH of lung cancer s/p left-sided lobectomy, tobacco use disorder, as per patient??recently diagnosed bilateral??pulmonary embolism??started on Eliquis 2 weeks ago??[no records in our system]??came to the ED with worsening shortness of breath. Initially in the ED patient remains afebrile, HR 63, RR 19, BP 119/66, saturation 94% on room air.?? No leukocytosis WBC of 7.3, Hgb of 10.9, PLT 275, Lites normal, BUN/creatinine 17/1.3, blood glucose 136, proBNP 149, troponin 16-18-20, chest x-ray with a small left-sided pleural effusion, new Port-A-Cath in place, C-19 negative.?? Patient received DuoNebs, aspirin 324, azithromycin 500, ceftriaxone, Solu-Medrol 125 mg in the ED.?? Patient will be admitted to observation medicine service for COPD exacerbation ? COPD with acute exacerbation ??(J44.1) Shortness of breath ??(R06.02) Left-sided lung cancer s/p??left lobectomy Tobacco use disorder Bilateral pulmonary embolism Vitals as per unit standards Telemetry monitoring Supplemental oxygen as needed, currently on room air DuoNebs??standing every 4 hours with updraft inhaler We will continue with??Breo Ellipta??as patient used to be on Trelegy Ellipta??and symptoms has been??worsening since??his inhaler has been discontinued Solu-Medrol 125 mg in the ED We will continue prednisone 40 mg daily for 5 days S/p ceftriaxone azithromycin in the ED... Patient afebrile, no leukocytosis,??chest x-ray with no??infiltrate/opacity, denies any cough. ??We will hold off on antibiotics Will only continue with azithromycin??for anti-inflammatory properties??for COPD exacerbation We will continue with Eliquis 70 g twice daily???home dose ?? Anxiety???we will continue with bupropion??150 mg daily, hydroxyzine as needed Insomnia???trazodone 50 mg daily Gabapentin 600 mg 3 times daily Continued on folic acid ? Code???full, confirmed with patient at bedside Diet???cardiac diet DVT prophylaxis???Eliquis, VTE guidelines ?? Patient seen and examined on 04/03/2023 ? Histories Allergies Allergies ?(Active and Proposed Allergies Only) Topical Skin Adhesive? (Severity: Unknown severity, Onset: Unknown) penicillins? (Severity: Unknown severity, Onset: Unknown) ? Past Medical History/Problem List Active Problems??(9) Cellulitis of left ankle Cocaine abuse Depression Heroin dependence History of total right hip replacement Hx of appendectomy Left ankle pain Nicotine dependence, uncomplicated Severe obesity ? Past Surgical History No surgery history documented. ? Social History Substance Abuse Details:??Use: Current. ??Type: Cocaine, Heroin. Tobacco Details:??Current every day smoker, Type: Cigarettes, Oral. ? Family History No family history recorded. ? Medications Home Medications Acetaminophen?1,000?Milligram?By Mouth?3 times a day Albuterol (ProAir HFA 90 mcg/inh inhalation aerosol)?2?puff(s)?Inhalation?Every 6 hours Azithromycin (Azithromycin 5 Day Dose Pack 250 mg oral tablet)?1?pack/packet?By Mouth?Once BuPROpion (Wellbutrin XL 150 mg/24 hours oral tablet, extended release)?1?tab(s)?150?Milligram?By Mouth?Every 24 hours Dexamethasone (dexamethasone 1 mg oral tablet)?1?tab(s)?1?Milligram?By Mouth?Once?Take at 11 PM , go for lab work next am at 8 am dulaglutide (Trulicity Pen 0.75 mg/0.5 mL subcutaneous solution)?0.5?Milliliter?0.75?Milligram?Subcutaneous Injection?Every week?rotate injection sites dulaglutide (Trulicity Pen 1.5 mg/0.5 mL subcutaneous solution)?0.5?Milliliter?1.5?Milligram?Subcutaneous Injection?Every week?rotate injection sites Duloxetine (duloxetine 60 mg oral enteric coated capsule)?1?capsule?60?Milligram?By Mouth?Daily Gabapentin (gabapentin 600 mg oral tablet)?600?Milligram?3 times a day HydrOXYzine (hydrOXYzine hydrochloride 50 mg oral tablet)?1?tab(s)?50?Milligram?By Mouth?2 times a day?as needed?for anxiety Ibuprofen (ibuprofen 600 mg oral tablet)?600?Milligram?1?tablet?By Mouth?Every 6 hours Lidocaine Topical (Lidoderm 5% film)?Topically?Daily Methadone (methadone 10 mg oral tablet)?9?tab(s)?90?Milligram?By Mouth?Daily Nicotine (nicotine 21 mg/24 hr transdermal film, extended release)?1?patch(es)?Daily Trazodone (traZODone 150 mg oral tablet)?1?tab(s)?150?Milligram?By Mouth?Daily atbedtime ? Inpatient Medications Medications (18) Active SCHEDULED: (10) Albuterol/Ipratropium Inhalation [place] 3mL (Duoneb Inhalation Solution) ??1 vials, BAND Nebulizer, Every 4 hours Azithromycin 500 mg Tablet (Azithromycin Tablet) ??250 mg, By Mouth, Daily at bedtime Breo Ellipta 200 mcg / 25 mcg Inhaler (Breo Ellipta 200 mcg-25 mcg Inhaler) ??1 puffs, Inhalation, Daily BuPROPion XL 150 mg Tablet (BuPROpion XL Tablet) ??150 mg, By Mouth, Daily Folic Acid 1 mg Tablet (folic acid 1 mg oral tablet) ??1 mg, By Mouth, Daily Gabapentin 300 mg Capsule (gabapentin 300 mg oral capsule) ??600 mg, By Mouth, 3 times a day Insulin Lispro 100 units/mL Inj (3mL) (Insulin LISPRO Sliding Scale) ??2-10 units, Subcutaneous Injection, 3 times a day before meals NaCl 0.9% Flush 3ml (NaCL 0.9% Flush) ??3 mL, IV Push, Every 8 hours PredniSONE 20 mg Tablet (predniSONE 20 mg oral tablet) ??40 mg, By Mouth, Daily Trazodone 50 mg Tablet (traZODone 50 mg oral tablet) ??150 mg, By Mouth, Daily at bedtime CONTINUOUS: (0) PRN: (8) Acetaminophen 325 mg Tablet (Acetaminophen Tablet) ??650 mg, By Mouth, Every 4 hours Dextromethorphan-Guaifenesin 20 mg-200 mg/10 mL Liqu UD (Robitussin DM Liquid) ??10 mL, By Mouth, Every 4 hours HydrOXYzine HCL 10mg Tablet (hydrOXYzine hydrochloride 10 mg oral tablet) ??50 mg, By Mouth, 2 times a day Melatonin 3 mg Tablet (Melatonin Tablet) ??3 mg, By Mouth, Daily at bedtime NaCl 0.9% Flush 3ml (NaCL 0.9% Flush) ??3 mL, IV Push, Every 8 hours Polyethylene Glycol 17 Gm Powder (MiraLax Powder) ??17 Gm 1 pack/packet, By Mouth, Daily Senna 8.6 mg / Docusate 50 mg tablet (Docusate/Senna Tablet) ??1 tablet, By Mouth, 2 times a day Simethicone 80 mg Chewable Tablet (Simethicone Tablet) ??80 mg, Chew, 3 times a day ? Results Recent Labs BLOOD COUNT & DIFF WBC 7.3 k/mm3 ()?? 04/02/2023 13:20 RBC 3.96 m/mm3 (Low)?? 04/02/2023 13:20 Hgb 10.9 Gm/dL (Low)?? 04/02/2023 13:20 Hct 35.8 % (Low)?? 04/02/2023 13:20 MCV 90.4 femtoliters ()?? 04/02/2023 13:20 MCH 27.5 pg ()?? 04/02/2023 13:20 MCHC 30.4 g/dL (Low)?? 04/02/2023 13:20 Platelet Count 275 k/mm3 ()?? 04/02/2023 13:20 RDW-SD 46.2 femtoliters ()?? 04/02/2023 13:20 MPV 9.7 femtoliters ()?? 04/02/2023 13:20 Nucleated RBC (Automated) 0.0 #/100 WBC'S ()?? 04/02/2023 13:20 Abs. NRBC 0.0 k/mm3 ()?? 04/02/2023 13:20 Abs. Neut 4.1 k/mm3 ()?? 04/02/2023 13:20 Abs. Lymph 2.4 k/mm3 ()?? 04/02/2023 13:20 Abs. [place] 0.5 k/mm3 ()?? 04/02/2023 13:20 Abs. Eo 0.3 k/mm3 ()?? 04/02/2023 13:20 Abs. Baso 0.0 k/mm3 ()?? 04/02/2023 13:20 Neut % 56.1 % ()?? 04/02/2023 13:20 Lymph % 32.5 % ()?? 04/02/2023 13:20 [place] % 6.3 % ()?? 04/02/2023 13:20 Eos % 4.4 % ()?? 04/02/2023 13:20 Baso % 0.4 % ()?? 04/02/2023 13:20 Imm Gran 0.3 % ()?? 04/02/2023 13:20 Abs. Imm Gran 0.0 k/mm3 ()?? 04/02/2023 13:20 ?? CARDIAC Nt-Probnp 149 pg/mL (High)?? 04/02/2023 13:20 High Sensitivity Troponin (HSTnT) 20 ng/L ()?? 04/02/2023 18:13 ?? CHEM GENERAL Sodium 143 mmol/L ()?? 04/02/2023 13:20 Potassium 5.0 mmol/L ()?? 04/02/2023 13:20 Chloride 102 mmol/L ()?? 04/02/2023 13:20 Bicarbonate Level 33 mmol/L (High)?? 04/02/2023 13:20 Anion Gap 8 ()?? 04/02/2023 13:20 Glucose Level 87 mg/dL ()?? 04/02/2023 13:20 Glucose, POC 136 mg/dL (High)?? 04/03/2023 05:31 BUN 17 mg/dL ()?? 04/02/2023 13:20 Creatinine-Blood 1.3 mg/dL (High)?? 04/02/2023 13:20 Estimated GFR Creatinine 61 ML/MIN/1.73 M2 ()?? 04/02/2023 13:20 Calcium 9.6 mg/dL ()?? 04/02/2023 13:20 ?? HEME OTHER Hold Blue Top SPECIMEN DISCARDED AFTER 4 HOURS. ()?? 04/02/2023 13:20 ?? URINE OTHER Est Creatinine Clearance 60.15 mL/min ()?? 04/03/2023 00:58 ?? VIROLOGY COVID-19 by RT-PCR NEGATIVE ()?? 04/02/2023 12:30 ? Urinalysis Est Creatinine Clearance: 60.15 mL/min (00:58) ?? Microbiology ?? COVID-19 (Novel Coronavirus), Rapid PCR?? Completed?? Source: Nasal Body Site: Nose Collected Dt/Tm: 04/02/2023 12:20 Last Updated Dt/Tm: 04/02/2023 13:47 ? Cardiology Labs Nt-Probnp:??149 pg/mL??High (04/02/23 13:20:00) High Sensitivity Troponin (HSTnT): 20 ng/L (04/02/23 18:13:00) High Sensitivity Troponin (HSTnT): 18 ng/L (04/02/23 15:57:00) High Sensitivity Troponin (HSTnT): 16 ng/L (04/02/23 13:20:00) ? [1]??Chest 2 Views Frontal and Lat; Piero Umanzor MD 04/02/2023 13:35 EDT EKG study * Event Display: EKG Authored Date: * Event Display: ECG 12-Lead Authored Date: Please click on pdf link to open report * Event Display: ECG 12-Lead Authored Date: Ventricular Rate: 62 BPM Atrial Rate: 62 BPM P-R Interval: 190 ms QRS Duration: 96 ms Q-T Interval: 440 ms QTC Calculation(Bazett): 446 ms P [place]: 59 degrees R [place]: 8 degrees T [place]: 31 degrees Normal sinus rhythm Cannot rule out Anterior infarct (cited on or before 02-APR-2023) Abnormal ECG When compared with ECG of 06-FEB-2023 16:11, No significant change was found Confirmed by KEDAR BELLA ([id number]) on 04/02/2023 4:19:25 PM [place]: KEDAR BELLA Cardiology * Event Display: Cardiac Rhythm Strips Authored Date: Hospital Progress note * Blanca Vanessa RN: PERFORM, MODIFY, MODIFY, MODIFY, MODIFY, MODIFY, SIGN, VERIFY Event Display: Progress Note Hospital Authored Date: Patient: ERIC MCCLOUD Age: 58 years Sex: Male : 1965 Associated Diagnoses: None Author: Blanca Vanessa RN Findings Nursing Data Cardiac Data. : Cardiac Data. 04/03/2023 1:00 EDT Cardiovascular Symptoms Chest pain Nail Bed Color, Fingers [place] Skin Temperature Upper Extremities Warm Skin Temperature Lower Extremities Warm Heart Sounds S1, S2 Heart Rhythm Regular Cardiovascular Comment denies chest pain, +cms and pps to all extremities Cardiac Rhythm Normal sinus rhythm Capillary Refill < 3 seconds Dorsalis Pedis Pulse, Left Normal Dorsalis Pedis Pulse, Right Normal Cardiovascular WNL except . Respiratory/Pulmonary Data. : Respiratory/Pulmonary Data. 04/03/2023 1:00 EDT Respiratory Symptoms None Respiratory effort Unlabored Respiratory Assessment Comment pt denies sob Cough No cough Respiratory pattern Regular Respiratory WNL except . Vital Signs : VITAL SIGNS SECTION 04/03/2023 0:54 EDT Temperature 98 DegF Temperature Route Oral Pulse Rate 68 bpm Respiratory Rate 20 br/min Systolic Blood Pressure 127 mm Hg Diastolic Blood Pressure 74 mm Hg Blood pressure sites Arm, left Mean Arterial Pressure 92 mm Hg Pulse Pressure 53 mm Hg 04/03/2023 0:28 EDT Early Warning Score 2.00 04/03/2023 0:27 EDT Early Warning Score 2.00 04/03/2023 0:18 EDT Temperature 98 DegF Temperature Route Oral Pulse Rate 68 bpm Respiratory Rate 20 br/min Systolic Blood Pressure 127 mm Hg Diastolic Blood Pressure 74 mm Hg Blood pressure sites Arm, left Mean Arterial Pressure 92 mm Hg Pulse Pressure 53 mm Hg Oxygen Saturation 94 % Mode of Delivery (Oxygen) Room air . Narrative/Incidental Assumed care of patient at 0030, pt a/ox4, following commands appropriately, afebrile, VS wnl. Respiratons even and unlabored on room air, denies sob at this time, LS to RUL noted with expiratory wheezes. NSR on tele, 63 bpm, pt endorsing chest pain, reproducable on palpation, medicated with morphine and apap with good effect, +cms and pps to all extremities. ABD soft, nontender +BS to all quads,denies NVD. PT denies use of assistive devices to ambulate, denies history of falls. Educated patient on plan of care and call luther use, fall risk precautions in place, call luther within reach, hourlyrounding maintained. See CIS for full assessment data and flow sheets, will continue monitoring as needed. . Note * Lane NINA, Julia: PERFORM Event Display: Discharge/Transfer Note Hospital Authored Date: Nursing Discharge Note Entered On: 04/03/2023 12:32 EDT Performed On: 04/03/2023 12:32 EDT by Julia Sherman RN Nursing Discharge Note 2 Discharge Time : 04/03/2023 11:30 EDT Discharge Level of Care at Discharge : Home/Senior Care/Foster Care Patient Left Unit Via : Ambulatory Patient Accompanied Off Unit with : Responsible adult DC Instructions Provided & Signed by Pt : Yes Patient Understands D/C Instructions : Yes Patient Instructions Discharge Signed : Yes Did Pt have Specialty Bed or Wound Vac : No Julia Sherman RN - 04/03/2023 12:32 EDT * Tootie Guzmán DO: PERFORM, MODIFY, MODIFY, MODIFY, MODIFY, MODIFY, MODIFY, MODIFY, MODIFY, MODIFY, MODIFY, MODIFY Event Display: Discharge/Transfer Note Hospital Authored Date: [id number] Patient: ??ERIC MCCLOUD ? Age:??58 Years?Sex:??Male?:??1965?? Patient Information Discharge Location: [facility] Primary Care Physician: Reanna PERSON, Morena Berg Admit Date/Time: 04/02/23 12:11 Discharge Date: 04/03/23 Discharge Disposition Discharge Disposition: Home: No Services Discharge Diagnosis COPD exacerbation (J44.1) Shortness of breath (R06.02) Recent history of bilateral pulmonary embolism on Apixaban Left-sided lung cancer s/p??left lobectomy Tobacco use disorder Hyperglycemia ?? _ Discharge Medications Acetaminophen?1,000?Milligram?By Mouth?3 times a day?as needed?Pain , Mild Albuterol (ProAir HFA 90 mcg/inh inhalation aerosol)?2?puff(s)?Inhalation?Every 6 hours?as needed?Wheezing/Shortness of Breath apixaban (Eliquis 5 mg oral tablet)?1?tab(s)?5?Milligram?By Mouth?2 times a day Azithromycin (azithromycin 250 mg oral tablet)?1?tab(s)?250?Milligram?By Mouth?Daily at bedtime?for 2?Days Budesonide-Formoterol (Symbicort 160mcg/4.5mcg Inhaler)?2?puff(s)?Inhalation?2 times a day BuPROpion (Wellbutrin XL 150 mg/24 hours oral tablet, extended release)?1?tab(s)?150?Milligram?By Mouth?Every 24 hours Clonazepam (clonazePAM 0.5 mg oral tablet)?TAKE 2 TIMES A DAY NEEDED FOR AGITATION AND ANXIETY Dexamethasone (dexamethasone 4 mg oral tablet)?TAKE 1 TABLET BY MOUTH TWICE DAILY AFTER CHEMOTHERAPY FOR 2 DAYS Gabapentin (gabapentin 600 mg oral tablet)?600?Milligram?3 times a day HydrOXYzine (hydrOXYzine hydrochloride 50 mg oral tablet)?1?tab(s)?50?Milligram?By Mouth?2 times a day?as needed?for anxiety Methadone (methadone 10 mg oral tablet)?9?tab(s)?90?Milligram?By Mouth?Daily PredniSONE (predniSONE 20 mg oral tablet)?2?tab(s)?40?Milligram?By Mouth?Daily?for 5?Days Tiotropium (Spiriva HandiHaler 18 mcg inhalation capsule)?1?capsule?18?Microgram?Inhalation?Daily Trazodone (traZODone 150 mg oral tablet)?1?tab(s)?150?Milligram?By Mouth?Daily atbedtime ?? Medications Started Azithromycin (azithromycin 250 mg oral tablet)?1?tab(s)?250?Milligram?By Mouth?Daily at bedtime?for 2?Days Budesonide-Formoterol (Symbicort 160mcg/4.5mcg Inhaler)?2?puff(s)?Inhalation?2 times a day PredniSONE (predniSONE 20 mg oral tablet)?2?tab(s)?40?Milligram?By Mouth?Daily?for 5?Days Tiotropium (Spiriva HandiHaler 18 mcg inhalation capsule)?1?capsule?18?Microgram?Inhalation?Daily Medications Discontinued None Doses Changed None PCP Follow-Up/Heads-Up [ ] Being treated for a COPD exacerbation,??prescribed??Symbicort and Spiriva. Recommend FU with licensed practical vocational nurse [ ] Elevated blood glucose into the 200s, possible 2/2 steroids. Recommend obtaining A1c at some point in the future once off steroids Hospital Course 58-year-old male with PMH of lung cancer s/p left-sided lobectomy, tobacco use disorder, as per patient??recently diagnosed bilateral??pulmonary embolism??started on Eliquis 2 weeks ago??[no records in our system]??came to the ED with worsening shortness of breath, admitted for a COPD exacerbation. ?? #Shortness of breath #COPD with acute exacerbation?? #Recent history of bilateral pulmonary embolism on Apixaban #Left-sided lung cancer s/p??left lobectomy #Tobacco use disorder Progressive SOB with intermittent episodes of pleuritic CP (CP has been ongoing since diagnosed with PE) and mildly productive cough. Also complains of intermittent diaphoresis and nausea. No fevers, chills, night sweats, generalizedmuscle weakness. Was started on a Trilogy Ellipta inhaler a month ago- stopped taking this 1??week ago due to insurance issues and since then has been noticed progressively worsening shortness of breath with minimal exertion and sometimes at rest.?? Otherwise compliant with all his home medications. Recently had a right-sided Port-A-Cath placed and about to initiate chemotherapy from . Chest x-ray with a small left-sided pleural effusion, trops flat. Received DuoNebs, high dose ASA, Azithromycin, Ceftriaxone, and Solu-Medrol 125mg IV once in ED, admitted to obs. Reports he feels much improved since ED arrival. Breathing comfortably on room air. Active smoker, smoking at least 1 ppd. ?? RECOMMENDATIONS: -Continue Azithromycin 500mg PO QD for another 2 days to complete a total of 3 days of abx therapy (04/02 - 04/04) -Start Prednisone 40mg PO QD for 4 days (04/03 - 04/06)??to complete a total of 5 days of steroid treatment -Start Spiriva and Symbicort inhalers, confirmed insurance will cover these -Albuterol rescue inhaler PRN -Continue home Eliquis 5mg PO BID for history of recent PEs -F/U with pulmonology outpatient ? #Hyperglycemia Blood glucose in the mid 100s-200s this admission. Possibly 2/2 steroids. No history of diabetes. Was on Trulicity in the past but per patient, this was for weight loss. ?? RECOMMENDATIONS: -F/U with PCP, recommend obtaining A1c at some point in the future once off steroids ? CHRONIC/STABLE MEDICAL PROBLEMS: Anxiety: Continue home Bupropion??150mg PO QD, Hydroxyzine and/or Clonazepam??as needed Insomnia: Continue home Trazodone 50mg PO QD ?? Objective Vital Signs?? Temperature: 98 DegF (04/03/23 07:33:00) Temperature Route: Oral (04/03/23 07:33:00) Pulse Rate: 62 bpm (04/03/23 07:33:00) Respiratory Rate: 18 br/min (04/03/23 08:35:00) Systolic Blood Pressure: 107 mm Hg (04/03/23 07:33:00) Diastolic Blood Pressure: 55 mm Hg (04/03/23 07:33:00) Blood pressure sites: Arm, right (04/03/23 07:33:00) Mean Arterial Pressure: 72 mm Hg (04/03/23 07:33:00) Pulse Pressure: 52 mm Hg (04/03/23 07:33:00) Oxygen Saturation:??93 %??Low (04/03/23 07:33:00) Mode of Delivery (Oxygen): Room air (04/03/23 07:33:00) Early Warning Score: 2 (04/03/23 10:44:15) . Physical Exam Constitutional: Pleasant and cooperative, not in acute distress. Head: Normocephalic. Eyes: Extraocular muscles intact. Ear, Nose and Throat: Oropharynx clear, mucous membranes moist. Ears and nose without masses, lesions or deformities. Trachea midline. Neck: Supple, Full range of motion. Respiratory: Non-labored breathing, breathing comfortably on room air. Lung sounds slightly diminished??bilaterally without wheezing, rales, rhonchi, or crackles. Cardiovascular:??Normal rate, regular rhythm.??No murmurs, rubs or gallops. Gastrointestinal: Abdomen soft, non-tender, non-distended. Normal bowel sounds. Genitourinary: No suprapubic tenderness. Neurologic: Alert and oriented x3. Speech clear, comprehension intact. No gross focal neurological deficits. Skin: No acute or concerning rashes or lesions. No petechiae or purpura.?? Musculoskeletal: No gross deformities. Normal range of motion, moving all 4 extremities spontaneously. Psychiatric: Normal mood and affect without obvious signs of anxiety or depression. Consultants N/A Pending Results No Pending Results Patient Education Titles Tiotropium Inhalation Powder?? Budesonide/Formoterol Metered Dose Inhaler?? Chronic Kidney Disease (CKD)?? Discharge Instructions for Chronic Kidney Disease (CKD)?? Medicines for Chronic Obstructive??Pulmonary Disease (COPD)?? Follow-Up Appointments Added Follow Up ?Time Frame ?Comments Please avoid OTc pain medications including motrin, alleve, ibuprofen etc Prescription has been sent to pharmacy in [facility]?you have been started on spiriva and symbicort. also prescription of prednisone and a zithromycin has been sent Morena Forte?1 to 2 weeks?for the follow upanemia Post Discharge Care Discharge ?04/03/23 9:38:00 EDT Discharge Prescriptions ?ePrescribed, ??04/03/23 9:38:00 EDT Home Health Face to Face N/A Results Discharge Labs BLOOD COUNT & DIFF WBC 7.3 k/mm3 ()?? 04/02/2023 13:20 RBC 3.96 m/mm3 (Low)?? 04/02/2023 13:20 Hgb 10.9 Gm/dL (Low)?? 04/02/2023 13:20 Hct 35.8 % (Low)?? 04/02/2023 13:20 MCV 90.4 femtoliters ()?? 04/02/2023 13:20 MCH 27.5 pg ()?? 04/02/2023 13:20 MCHC 30.4 g/dL (Low)?? 04/02/2023 13:20 Platelet Count 275 k/mm3 ()?? 04/02/2023 13:20 RDW-SD 46.2 femtoliters ()?? 04/02/2023 13:20 MPV 9.7 femtoliters ()?? 04/02/2023 13:20 Nucleated RBC (Automated) 0.0 #/100 WBC'S ()?? 04/02/2023 13:20 Abs. NRBC 0.0 k/mm3 ()?? 04/02/2023 13:20 Abs. Neut 4.1 k/mm3 ()?? 04/02/2023 13:20 Abs. Lymph 2.4 k/mm3 ()?? 04/02/2023 13:20 Abs. Yolo 0.5 k/mm3 ()?? 04/02/2023 13:20 Abs. Eo 0.3 k/mm3 ()?? 04/02/2023 13:20 Abs. Baso 0.0 k/mm3 ()?? 04/02/2023 13:20 Neut % 56.1 % ()?? 04/02/2023 13:20 Lymph % 32.5 % ()?? 04/02/2023 13:20 Yolo % 6.3 % ()?? 04/02/2023 13:20 Eos % 4.4 % ()?? 04/02/2023 13:20 Baso % 0.4 % ()?? 04/02/2023 13:20 Imm Gran 0.3 % ()?? 04/02/2023 13:20 Abs. Imm Gran 0.0 k/mm3 ()?? 04/02/2023 13:20 ?? CARDIAC Nt-Probnp 149 pg/mL (High)?? 04/02/2023 13:20 High Sensitivity Troponin (HSTnT) 20 ng/L ()?? 04/02/2023 18:13 ?? CHEM GENERAL Sodium 143 mmol/L ()?? 04/02/2023 13:20 Potassium 5.0 mmol/L ()?? 04/02/2023 13:20 Chloride 102 mmol/L ()?? 04/02/2023 13:20 Bicarbonate Level 33 mmol/L (High)?? 04/02/2023 13:20 Anion Gap 8 ()?? 04/02/2023 13:20 Glucose Level 87 mg/dL ()?? 04/02/2023 13:20 Glucose, POC 123 mg/dL (High)?? 04/03/2023 10:30 BUN 17 mg/dL ()?? 04/02/2023 13:20 Creatinine-Blood 1.3 mg/dL (High)?? 04/02/2023 13:20 Estimated GFR Creatinine 61 ML/MIN/1.73 M2 ()?? 04/02/2023 13:20 Calcium 9.6 mg/dL ()?? 04/02/2023 13:20 ? HEME OTHER Hold Blue Top SPECIMEN DISCARDED AFTER 4 HOURS. ()?? 04/02/2023 13:20 ? URINE OTHER Est Creatinine Clearance 60.15 mL/min ()?? 04/03/2023 00:58 ? VIROLOGY COVID-19 by RT-PCR NEGATIVE ()?? 04/02/2023 12:30 ? 30 minutes spent on discharge. ? Patient reviewed with supervising??attending Dr. Singh. ?? Tootie Guzmán, DO Internal Medicine, PGY-1 Pager# [phone] * Lane NINA, Julia: PERFORM Event Display: Patient Education/Instruction Authored Date: [id number] Inpatient Adult Discharge Instructions [address] [address] Name: ERIC MCCLOUD : 1965 Visit: 04/02/2023 12:11:00 Current Date: 04/03/2023 10:08 Account: [id number] Inpatient Adult Discharge Instructions We would like to thank you for allowing us to assist you with your healthcare needs. The following includes patient education materials and information regarding your injury/illness. Our entire staffstrives to provide an excellent experience for our patients and their families. PLEASE ENSURE YOU FOLLOW-UP PER THE INSTRUCTIONS BELOW! ?? YOUR OPINION IS IMPORTANT TO US! Please complete the survey you may receive by mail or email. Your feedback will be used to make improvements to the healthcare experiences of our patients and their families. Surveys are administered by [employer] ?? If further treatment with your primary care physician or another doctor is recommended, it is important for you to keep the appointment. Call your primary care physician or return to the Emergency Department immediately if your condition worsens, fails to improve, or new symptoms develop. If you need to find a doctor, you can call [facility] for a referral at [phone] or toll free at [phone] or log in to [email or web address].. ?? You can view and manage your care through the patient portal or by using a health care yolanda of your choosing. [employer] is a website that allows you to securely view your medical information including your hospital discharge summary, office visit summaries, medications and follow-up visits. You can also request appointments, renew medications, and request access to your medical information using a health care yolanda of your choosing, or just ask a question. You can enroll at [email or web address] or register during your next office visit. You have been discharged from [facility], Patient Care Unit: D3B. If you have any questions regarding these instructions after you leave, please call us and we will be happy to assist you. [facility] Your Care Team Attending Physician Jean Singh MD Discharging Providers Jean Singh MD Reason for Admission Coming from walk in clinic in [place] - SOB, diaphoretic. Took pt off trelegy 1 week ago. SP Partial lobectomy 1 month ago (left side). Port place 1 week ago in R chest. Lung CA, starting chemo . Intermittent CP, none currently. Your Diagnosis Shortness of breath COPD exacerbation COPD with acute exacerbation Tests Performed Below is a partial list of the tests performed during your hospitalization. You may have had other tests and procedures not included in this list. Please discuss all test results with your provider. Basic Metabolic Panel CBC w/ Differential COVID-19 (Novel Coronavirus), Rapid PCR GLUCOSE POC High??Sensitivity??Troponin T Hold Blue Top Tube ProBNP Troponin T, High Sensitivity XR Chest 2 Views Frontal and Lat Primary Care Provider Reanna PERSON, Morena Berg Advance Directive Health Care Proxy on File No Patient refuses to discuss Discharge Vitals Temperature: 98 DegF Height: 173 cm Pulse Rate: 62 bpm Weight: 128.9 kg Respiratory Rate: 18 br/min Body Mass Index:??43.07 kg/m2??Critical Systolic Blood Pressure: 107 mm Hg Body surface area: 2.49 Diastolic Blood Pressure: 55 mm Hg ?? Oxygen Saturation:??93 %??Low ?? Studies Pending All tests and labs ordered during this hospital stay have been completed unless listed below. Please discuss all pending results with your provider listed above in these instructions. ?? No incomplete studies found What to do next Instructions From Your Doctor Discharge Orders You Need to Schedule the Following Appointments Follow Up with??Please avoid OTc pain medications including motrin, alleve, ibuprofen etc Follow Up with??Prescription has been sent to pharmacy in [facility] Why: you have been started on spiriva and symbicort. also prescription of prednisone and azithromycin has been sent Follow Up with??Morena Forte When:??Within 1 to 2 weeks Why: for the follow up anemia Where: [address] [place] [address]- Business (1) Discharge Medications ERIC MCCLOUD :1965 Visit Date:04/02/2023 Medications: Please continue your medications until treatment is completed or stopped by your provider. Medications not listed below should be discontinued. Discuss any questions related to medications with your provider. What How Much When Instructions Next Dose New Budesonide-Formoterol (Symbicort 160mcg/ 4.5mcg Inhaler) 2 puff(s) Inhalation Twice a day Refills: 1 Pickup at [place] [address] 04/03 9pm New PredniSONE (predniSONE 20 mg oral tablet) 2 tab(s) Oral Daily Duration: 5 Days Pickup at [place] [address] 04/04 9am New Tiotropium (Spiriva HandiHaler 18 mcg inhalation capsule) 1 capsule Inhalation Daily Refills: 1 Pickup at [place] [address] 04/04 9am Changed Acetaminophen 1,000 Milligram Oral 3 times a day as needed for Pain , Mild 3 times a day as needed for Pain Changed Albuterol (ProAir HFA 90 mcg/ inh inhalation aerosol) 2 puff(s) Inhalation Every 6 hours as needed for Wheezing/Shortness of Breath Every 6 hours as needed Changed Azithromycin (azithromycin 250 mg oral tablet) 1 tab(s) Oral Daily at Bedtime Duration: 2 Days Pickup at [place] [address] 04/03 pm Changed Dexamethasone (dexamethasone 4 mg oral tablet) TAKE 1 TABLET BY MOUTH TWICE DAILY AFTER CHEMOTHERAPY FOR 2 DAYS ?? as prescribed Unchanged apixaban (Eliquis 5 mg oral tablet) 1 tab(s) Oral Twice a day 04/03 pm Unchanged BuPROpion (Wellbutrin XL 150 mg/ 24 hours oral tablet, extended release) 1 tab(s) Oral Every 24 hours Every 24 hours Unchanged Clonazepam (clonazePAM 0.5 mg oral tablet) TAKE 2 TIMES A DAY NEEDED FOR AGITATION AND ANXIETY ?? TAKE 2 TIMES A DAY NEEDED Unchanged Gabapentin (gabapentin 600 mg oral tablet) 600 Milligram 3 times a day 04/03 3pm Unchanged HydrOXYzine (hydrOXYzine hydrochloride 50 mg oral tablet) 1 tab(s) Oral Twice a day as needed for for anxiety Twice a day as needed Unchanged Methadone (methadone 10 mg oral tablet) 9 tab(s) Oral Daily 04/04 9am Unchanged Miscellaneous Rx (chantix) Unchanged Trazodone (traZODone 150 mg oral tablet) 1 tab(s) Oral Daily at Bedtime 04/03 9pm Pharmacy Information [facility]: [address], [place] [id number] [phone] ?? What How Much When Comments Stop Taking dulaglutide (Trulicity Pen 0.75 mg/ 0.5 mL subcutaneous solution) 0.5 Milliliter Subcutaneous Injection Every week rotate injection sites ?? Stop Taking dulaglutide (Trulicity Pen 1.5 mg/ 0.5 mL subcutaneous solution) 0.5 Milliliter Subcutaneous Injection Every week rotate injection sites ?? Stop Taking Duloxetine (duloxetine 60 mg oral enteric coated capsule) 1 capsule Oral Daily Stop Taking Ibuprofen (ibuprofen 600 mg oral tablet) 1 tab(s) Oral Every 6 hours Stop Taking Lidocaine Topical (Lidoderm 5% film) Topically Daily Stop Taking Nicotine (nicotine 21 mg/ 24 hr transdermal film, extended release) 1 patch(es) Daily Test Results Below is a partial list of the most recent Laboratory test results done prior to this discharge. You may have had other tests and procedures not included in this list. Please discuss all test resultswith your provider. Est Creatinine Clearance - 60.15 mL/min (04/03/2023) Basic Metabolic Panel (04/02/2023) ???Sodium - 143 mmol/L???Potassium - 5.0 mmol/L???Chloride - 102 mmol/L???Bicarbonate Level - 33 mmol/L???Anion Gap - 8???Glucose Level - 87 mg/dL???BUN - 17 mg/dL???Creatinine-Blood - 1.3 mg/dL???Estimated GFR Creatinine - 61 ML/MIN/1.73 M2???Calcium - 9.6 mg/dL CBC w/ Differential (04/02/2023) ???WBC - 7.3 k/mm3???RBC - 3.96 m/mm3???Hgb - 10.9 Gm/dL???Hct - 35.8 %???MCV - 90.4 femtoliters???MCH - 27.5 pg???MCHC - 30.4 g/dL???Platelet Count - 275 k/mm3???RDW-SD - 46.2 femtoliters???MPV - 9.7 femtoliters???Nucleated RBC (Automated) - 0.0 #/100 WBC'S???Abs. NRBC - 0.0 k/mm3???Abs. Neut - 4.1 k/mm3???Abs. Lymph - 2.4 k/mm3???Abs. Yolo - 0.5 k/mm3???Abs. Eo - 0.3 k/mm3???Abs. Baso - 0.0 k/mm3???Neut % - 56.1 %???Lymph % - 32.5 %???Yolo % - 6.3 %???Eos % - 4.4 %???Baso % - 0.4 %???Imm Gran- 0.3 %???Abs. Imm Gran - 0.0 k/mm3 COVID-19 (Novel Coronavirus), Rapid PCR (04/02/2023) ???COVID-19 by RT-PCR - NEGATIVE GLUCOSE POC (04/03/2023) ???Glucose, POC - 136 mg/dL High??Sensitivity??Troponin T (04/02/2023) ???High Sensitivity Troponin (HSTnT) - 16 ng/L Hold Blue Top Tube (04/02/2023) ???Hold Blue Top - SPECIMEN DISCARDED AFTER 4 HOURS. ProBNP (04/02/2023) ???Nt-Probnp - 149 pg/mL Troponin T, High Sensitivity (04/02/2023) ???High Sensitivity Troponin (HSTnT) - 20 ng/L Allergies (NKA means No Known Allergies) Topical Skin Adhesive penicillins Problems Active Problems??(9) Cellulitis of left ankle?? Cocaine abuse?? Depression?? Heroin dependence?? History of total right hip replacement?? Hx of appendectomy?? Left ankle pain?? Nicotine dependence, uncomplicated?? Severe obesity?? Education Materials Below is the list of Educational Leaflet Providered with your Discharge Instructions. Tiotropium Inhalation Powder?? Budesonide/Formoterol Metered Dose Inhaler?? Chronic Kidney Disease (CKD)?? Discharge Instructions for Chronic Kidney Disease (CKD)?? Medicines for Chronic Obstructive??Pulmonary Disease (COPD)?? Valuables and Belongings I fully understand and agree that [facility] accepts no responsibility for all my personal property including clothing, toilet articles, radios, jewelry, dentures, hearing aids, rings, money, or any other property that is in my possession or is brought to me after admission. I understand certain valuables may be placed in a hospital safe for a short period of time. I understand that the hospital is not liable for loss or damage due to accident, fire, or other natural occurrence while said property is in the safe. I accept full responsibility for any personal property that I keep with me, and will not hold the hospital responsible in case of loss or disappearance. I acknowledge that i have been encouraged to send valuables and belongings home. ?? Review of Valuable and Belonging List: With patient Date for Pt to Sign Valuables/Belongings: 04/03/23 05:13:00 ?? Other Discharge Information ? Pulmonary Rehab Status?? Pulmonary Rehab Discharge Status?? Respiratory Rate: 18 br/min ? Common Emergency Awareness Tips IS IT A STROKE? Act FAST and Check for these signs: FACE Does the face look uneven? ARM Does one arm drift down? SPEECH Does their speech sound strange? TIME Call at any sign of stroke ?? Heart Attack Signs Chest discomfort: Most heart attacks involve discomfort in the center of the chest and lasts more than a few minutes, or goes away and comes back. It can feel like uncomfortable pressure, squeezing, fullness or pain. Discomfort in upper body: Symptoms can include pain or discomfort in one or both arms, back, neck, jaw or stomach. Shortness of breath: With or without discomfort. Other signs: Breaking out in a cold sweat, nausea, or lightheaded. Remember, MINUTES DO MATTER. If you experience any of these heart attack warning signs, call to get immediate medical attention! ?? Smoking can increase your chances of developing chronic health problems and can cause harmful effects to other family members in your house. If you smoke, you are strongly encouraged to quit. Please call [facility] at [phone] or [phone] ([phone]) or log in to [email or web address] for referrals to smoking cessation programs. ?? 98 Suicide & Crisis Lifeline is available 14/05 if you or someone you know needs to find a reason to keep living. By calling 746 you'll be connected to a skilled, trained counselor at a crisis center in your area. INPATIENT DISCHARGE INSTRUCTIONS SIGNATURE ERIC GRANT Location:[facility] Registration Date and Time:04/02/2023 12:11 EDT Primary Care Physician: Morena Forte NP, Attending Physician: Samantha OLIVER, Jean, I ERIC MCCLOUD, have received the above patient education materials/instructions and have verbalized understanding. If ambulance or transport services are being used I further acknowledge being givena choice of service. ?? If you need to contact me, please call me at this number: . Patient/Irrigation System Installer Name: Patient/Irrigation System Installer Signature: Relationship to Patient: Witness Name/Signature: Date: * Jean Singh MD: PERFORM, SIGN, VERIFY Event Display: Patient Education Handout Authored Date: * Jean Singh MD: PERFORM Event Display: Patient Education Leaflets Authored Date: Tiotropium Inhalation Powder ?? [id number] Tiotropium Inhalation Powder Brands: Spiriva Uses This medicine is used for the following purposes: ??? asthma ??? chronic lung disease ?? Instructions The capsule needs to be placed into your inhaler before each use. Please follow the instructions for your inhaler carefully. Do not swallow the capsule. This medicine will work best if you take it at about the same time every day. Keep this medicine at room temperature. Protect from moisture and high humidity. Ask your doctor, nurse or pharmacist to show you how to use this medicine correctly. The medicine is a very fine powder. Some patients may not feel or taste the medicine. Do not take an extra dose of medicine if you do not taste or feel the medicine being delivered. Rinse your mouth and throat with water after using the inhaler each time. Do not suddenly stop using this medicine. Stopping suddenly could cause your breathing to become worse. It is important that you keep taking each dose of this medicine on time even if you are feeling well. If you forget to take a dose on time, take it as soon as you remember. If it is almost time for thenext dose, do not take the missed dose. Return to your normal schedule. Do not take 2 doses at one time. Tell your doctor and pharmacist about all your medicines. Include prescription and [id number], vitamins, and herbal medicines. Do not share this medicine with anyone who has not been prescribed this medicine. Keep all appointments for medical exams and tests while on this medicine. Do not take the medicine more than once during 24 hours. ?? Cautions Do not use the medication any more than instructed. Your ability to stay alert or to react quickly may be impaired by this medicine. Do not drive or operate machinery until you know how this medicine will affect you. Tell the doctor or pharmacist if you are , planning to be , or . If this medicine causes more wheezing or makes it harder to breathe, stop the medicine. Get medicalhelp right away. Do not use this medicine during an asthma attack. It will not stop an attack once it has started. Do not start or stop any other medicines without first speaking to your doctor or pharmacist. If you have any trouble using the medicine, please tell your doctor, nurse or pharmacist. ?? Side Effects The following is a list of some common side effects from this medicine. Please speak with your doctor about what you should do if you experience these or other side effects. ??? dizziness ??? dry mouth Call your doctor or get medical help right away if you notice any of these more serious side effects: ??? eye pain or redness ??? difficulty or discomfort urinating ??? blurring or changes of vision ??? seeing halos or colors around lights ??? worsening breathing symptoms A few people may have an allergic reaction to this medicine. Symptoms can include difficulty breathing, skin rash, itching, swelling, or severe dizziness. If you notice any of these symptoms, seek medical help quickly. ?? Extra Please speak with your doctor, nurse, or pharmacist if you have any questions about this medicine. ?? [email or web address] IMPORTANT NOTE: This document tells you briefly how to take your medicine, but it does not tell youall there is to know about it. Your doctor or pharmacist may give you other documents about your medicine. Please talk to them if you have any questions. Always follow their advice. There is a more complete description of this medicine available in [place]. Scan this code on your smartphone or tablet or use the web address below. You can also ask your pharmacist for a printout. If you have any questions, please ask your pharmacist. The display and use of this drug information is subject to Terms of Use. Copyright(c) 2022 [employer]. ?? [employer]. All rights reserved. This information is not intended as a substitute for professional medical care. Always follow your healthcare professional's instructions. ?? * Jean Singh MD: PERFORM Event Display: Patient Education Leaflets Authored Date: [id number] Budesonide/Formoterol Metered Dose Inhaler ?? 96163-329 Budesonide/Formoterol Metered Dose Inhaler Brands: Symbicort Uses This medicine is used for the following purposes: ??? asthma ??? chronic lung disease ?? Instructions This medicine will work best if you take it at about the same time every day. Keep the medicine at room temperature. Avoid heat and direct light. Ask your doctor, nurse or pharmacist to show you how to use this medicine correctly. Each time you receive a new inhaler, you need to get it ready to use. Shake the inhaler for 5 seconds, point it away from you and then spray into the air. Repeat this one more time. This process is called priming the pump and removes any air from the medicine canister. Shake the inhaler well for 5 seconds before each use. Rinse mouth and throat with water after each use and spit the water out. Do not swallow the water. Do not suddenly stop using this medicine. Stopping suddenly could cause your breathing to become worse. It is important that you keep taking each dose of this medicine on time even if you are feeling well. If you forget to take a dose on time, take it as soon as you remember. If it is almost time for thenext dose, do not take the missed dose. Return to your normal schedule. Do not take 2 doses at one time. Keep track of how many times you use the inhaler. Do not use it more than the total number of dosesshown on the package. Tell your doctor and pharmacist about all your medicines. Include prescription and ksxw-rjg-tjhkecervvgktffx, vitamins, and herbal medicines. Do not share this medicine with anyone who has not been prescribed this medicine. Keep all appointments for medical exams and tests while on this medicine. ?? Cautions Do not use the medication any more than instructed. Tell the doctor or pharmacist if you are , planning to be , or . If this medicine causes more wheezing or makes it harder to breathe, stop the medicine. Get medicalhelp right away. Do not start or stop any other medicines without first speaking to your doctor or pharmacist. If you have any trouble using the medicine, please tell your doctor, nurse or pharmacist. ?? Side Effects The following is a list of some common side effects from this medicine. Please speak with your doctor about what you should do if you experience these or other side effects. ??? headaches ??? hoarseness or throat irritation ??? high blood pressure ??? stomach upset or abdominal pain Call your doctor or get medical help right away if you notice any of these more serious side effects: ??? rarely, a severe episode of asthma may occur ??? dizziness ??? increased risk for an infection ??? rapid heartbeat ??? shakiness ??? yeast infection in the mouth or throat A few people may have an allergic reaction to this medicine. Symptoms can include difficulty breathing, skin rash, itching, swelling, or severe dizziness. If you notice any of these symptoms, seek medical help quickly. ?? Extra Please speak with your doctor, nurse, or pharmacist if you have any questions about this medicine. ?? [email or web address] IMPORTANT NOTE: This document tells you briefly how to take your medicine, but it does not tell youall there is to know about it. Your doctor or pharmacist may give you other documents about your medicine. Please talk to them if you have any questions. Always follow their advice. There is a more complete description of this medicine available in [place]. Scan this code on your smartphone or tablet or use the web address below. You can also ask your pharmacist for a printout. If you have any questions, please ask your pharmacist. The display and use of this drug information is subject to Terms of Use. Copyright(c) 2022 [employer]. ?? [employer]. All rights reserved. This information is not intended as a substitute for professional medical care. Always follow your healthcare professional's instructions. ?? * Jean Singh MD: PERFORM Event Display: Patient Education Leaflets Authored Date: [id number] Chronic Kidney Disease (CKD) ?? [id number] Chronic Kidney Disease (CKD) The role of the kidneys is to remove waste products and extra water from the blood.??When the kidneys don't work as they should, waste products start to build up in the blood. This is called chronic kidney disease (CKD). CKD means that you have kidney damage or a decrease in kidney function lastingat least 3 months. CKD allows extra water, waste, and toxins to build up in the body. This can eventually become life-threatening. You might need dialysis or a kidney transplant to stay alive. This most severe form is called end-stage renal disease. Diabetes is one of the leading causes of chronic renal failure. Other causes include high blood pressure, hardening of the arteries (atherosclerosis), lupus, inflammation of the blood vessels (vasculitis), and past viral or bacterial infections. Certain phrn-jtk-douxans pain medicines can cause renal failure when taken often over a long period of time. These include aspirin, ibuprofen, and related anti-inflammatory medicines called NSAIDs (nonsteroidal anti- inflammatory drugs). Home care These guidelines will help you care for yourself at home: ??? If you have diabetes, talk??with yourhealthcare provider about keeping your blood sugar under control. Ask if you need to make and changes to your diet, lifestyle, or medicines. ??? If you have high blood pressure: o Take prescribed medicine to lower your blood pressure to the recommended goal of less than 130/80. o Start a regular exercise program that you enjoy.??Check with your healthcare provider to be sure your planned exerciseprogram is right for you. o Eat less salt (sodium).??Your healthcare provider can tell you how muchsalt per day is safe for you. ??? If you are overweight, talk??with your??healthcare provider??about a weight loss plan. ??? If you smoke, you must quit. Smoking makes kidney disease worse and puts you at risk for developing other serious illnesses.??Talk??with your healthcare provider about ways to help you quit.??For more information, visit the following links: o www.smokefree.gov/sites/default/files/pdf/hbzfsprc-fui-yby-accessible.pdf o www.smokefree.gov o www.cancer.org/healthy/stayawayfromt obacco/guidetoquittingsmoking ??? Most people with??CKD need to follow a special diet. Make sure you understand yours. In general, you will need to limit protein, salt, potassium, and phosphorus.??You also need to limit how much fluid you drink. ??? CKD is a risk factor for heart disease. Talk??with your healthcare provider about any other risk factors you might have and what you can do to lessenthem. ??? Talk??with your healthcare provider about any medicines you are taking to find out if they need to be reduced or stopped. ??? For your own safety, check with your healthcare provider beforetaking any medicines or supplements. Don't use the following bpbz-euc-pttcfuw medicines. Or consultyour healthcare provider before using them: o Aspirin and NSAIDs such as ibuprofen or naproxen. Using acetaminophen for fever or pain is OK. o Laxatives and antacids containing magnesium or aluminum o Fleet or phospho-soda enemas containing phosphorus o Certain stomach acid-blocking medicine such as cimetidine or ranitidine?? o Decongestants containing pseudoephedrine?? o Herbal supplements ?? Follow-up care Follow up with your healthcare provider as advised. Visit these websites to learn more: ??? [place] [employer] at www.aakp.org ??? National Kidney Foundation at www.kidney.org ??? [place] [employer] Fund at www.kidneyfund.org ??? National Kidney Disease Education Program at www.nkdep.nih.gov If an X-ray, ECG (electrocardiogram), or other diagnostic test was taken, you'll be told of any newfindings that may affect your care. ?? Call 911 Call 911 right away if any of these occur: ??? Severe weakness, dizziness, fainting, drowsiness, orconfusion ??? Chest pain or shortness of breath ??? Heart beating fast, slow, or irregularly ?? When to get medical advice Call your healthcare provider right away if you have any of these: ??? Upset stomach (nausea) or vomiting ??? Fever??of 100.4??F (38??C) or higher, or as advised by your provider ??? Unexpected weight gain or swelling in the legs, ankles, or around the eyes ??? Not peeing a lot, or not peeing at all ??? New symptoms or symptoms that get worse ?? Last Reviewed Date: 2022 ?? [id number] [employer]. All rights reserved. This information is not intended as a substitute for professional medical care. Always follow your healthcare professional's instructions. ?? Laboratory * [facility] , [facility] S: TRANSCRIBE Noé OLIVER, Piero: VERIFY Rupert Arrieta MD A: SIGN Event Display: Result: Authored Date: [id number] Chest 2 Views Frontal and Lat HX OF PRESENT ILLNESS: coming in for shortness of breath from [facility]. SOB, diaphoretic. Took pt off trelegy 1 week ago. SP Partial lobectomy 1 month ago (left side). Port place 1 week ago in R chest. Lung CA, starting chemo . Intermittent CP, none currently.; Reason: Shortness of Breath, Fever; Clinical Question(s): Pneumonia COMPARISON: Chest radiograph from 02/06/2023. FINDINGS: LINES AND TUBES: Right-sided Port-A-Cath with tip in the proximal SVC. LUNGS AND PLEURA: Postsurgical sutures consistent with partial lobectomy are seen in the left upper lobe. No focal consolidation. Bibasilar atelectasis. Small left pleural effusion, with fluid tracking along the fissure.. No pneumothorax. HEART, MEDIASTINUM AND GINA: Heart is normal in size. Normal mediastinal and hilar contour. BONES AND SOFT TISSUES: No acute abnormality. Moderate degenerative changes of the spine. IMPRESSION: 1. Small left pleural effusion. 2. Interval placement of a right-sided Port-A-Cath with tip in the proximal SVC. I have personally reviewed the images and I agree with this report. WSN: [id number] Ordering Physician: Yolanda Millard Dictated By: Rupert Arrieta MD Dictated Date/Time: 04/02/23 1:58 pm Reviewed By: Piero Umanzor MD Signed By: Piero Umanzor MD Signed Date/Time: 04/02/23 2:03 pm Transcribed By: PEDRO LUIS Transcribed Date/Time: 04/02/23 1:48 pm Patient Care team information Care Team Personnel Name: Dominique White RN Position: [facility] RN Member Role: Primary Care Nurse Name: Shilo Bose RN Position: [facility] ED RN W/OE and Tasks Member Role: Primary Care Nurse Name: Blanca Vanessa RN Position: S RN Member Role: Primary Care Nurse Name: Morena Forte NP Position: Reference Physician Member Role: PCP Address: Address: [address] [place] [id number]- Name: *Asif DOHERTY Attending Position: [facility] ED Medicine Name: Minna Wheeler RN Position: [facility] ED RN W/OE and Tasks Member Role: Patient Care Provider Name: Mellisa Torrez Position: S ED TA [facility] Member Role: Search Advertising Strategist Care Team Related Persons Name: PARK VILCHIS Address: [address] [place] [address] Name: NICK HATHAWAY Address: home [address] [place] [id number]
[2023-05-30 14:49] VITALS: BP 159/82; PULSE 72; BMI 42.9
--- NOTE | 2023-05-30 14:49 | A.OFFVIS_ITS ---
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 Discussed with patient FODMAP diet.? I will order lipase, thyroid study, comprehensive metabolic panel as patient has not been seen for over a year. (2) Gastroesophageal reflux disease: ?Code(s): K21.9 - Gastro-esophageal reflux disease without esophagitis ?Qualifiers: ?Esophagitis presence:?esophagitis presence not specified? Qualified Code(s):?K21.9 - Gastro-esophageal reflux disease without esophagitis ?Plan: Avoid dietary triggers.? Patient is not on any PPIs yet.? Patient will need to move his bowels better.? I will see him in couple months and if he does not improve we can order low-dose PPI for him. (3) Chronic idiopathic constipation: ?Code(s): K59.04 - Chronic idiopathic constipation ?Plan: Will start patient on Senokot 2 tablets every night.? Patient will call us if this not going to be effective.? I will see him in 3 months, sooner on as needed basis.? Patient is agreeable to this plan and verbalizes understanding of instructions.? He was given the opportunity to ask questions and all questions answered.? TODAY'S VISIT Patient was at diagnosed with lung CA and of last year. Had partial left lobectomy end of October. Surgery was done in [facility] in [place]. Patient is going for chemo now. Will have last treatment in 2 weeks. Patient reports that he continues to have abdominal bloating not necessarily related to food. Patient feels bloated constantly. Not taking Senokot as he felt that it was not really helping him at bloating. Patient is moving his bowels. Not sure if he is emptying his bowels completely. Patient denies melena, hematochezia, unintentional weight loss or ribbon like stools. Patient had colonoscopy few years ago, ? done in [facility]. Will try to get records. Occasional nausea and vomiting most likely related to chemo. Patient reports occasional acid reflux, most likely related to food and chemo. Patient is not taking anything for it. [facility] Medical History Asthma-COPD overlap syndrome Depression with anxiety Hepatitis C History of CVA (cerebrovascular accident) (~2008) HLD (hyperlipidemia) Lung cancer (~2022) Methadone maintenance therapy patient Nicotine dependence, cigarettes, uncomplicated Obesity DA (obstructive sleep apnea) Osteoarthritis Pleuritic chest pain Post-thoracotomy pain syndrome Pulmonary emboli Surgical History History of bilateral hip replacements History of carpal tunnel surgery History of colonoscopy History of esophagogastroduodenoscopy (EGD) History of left inguinal hernia repair History of lung surgery Hx of appendectomy Family History Father No problems noted. Mother Family history of high blood pressure Hx of diabetes insipidus Social History Household Members: None Housing: Apartment Do you presently have visiting nurse or other home services: Yes Alcohol intake: former Patient Tobacco Use Status: Current everyday Tobacco user Tobacco use type: Cigarette Years Smoked: (onset 13yo, 1ppd x 44yrs, now 3/4ppd, 40pyh) e-Cigarette/Vaping Use: Currently Using Use of substances other than those prescribed or required for medical reasons: No Have you been hit, kicked, punched, or otherwise hurt by someone within the past year? If so, by whom?: No Do you feel safe in your current relationship?: No Current Relationship Do you have thoughts of harming others: None Do you have a plan to hurt others: No Plan Do you have the means to hurt others: No Recently lost weight without trying: No service: No Current occupational status: disabled Review of Systems Const Denies weight gain and Denies weight loss ENT Reports no additional complaints, Denies dysphagia and Denies odynophagia Card Reports no additional complaints Resp Reports no additional complaints GI Denies abdominal pain, Denies belching, Denies melena, Reports bloating, Reports constipation (Occasional), Denies dysphagia, Denies excessive flatus, Denies dyspepsia, Denies heartburn, Denies diarrhea, Denies loose stools, Denies nausea, Denies odynophagia and Denies vomiting Reports no additional complaints Musc Reports no additional complaints Neuro Reports no additional complaints Psych Reports no additional complaints Endo Reports no additional complaints Physical Exam Vital Signs: Last Vital Signs Pulse 72 05/30/23 14:49 BP 159/82 H 05/30/23 14:49 BMI result Body Mass Index 42.9 Const General: healthy appearing, no acute distress and well developed Nutritional Appearance: obese Orientation/consciousness: patient oriented x3 HEENT Head: Yes normal to inspection, Yes normocephalic and Yes atraumatic Face and sinus: Yes normal facial exam Mouth: Normal oral and palatal mucosa present Throat: Yes posterior oropharynx normal, Yes tonsils normal and Yes uvula midline Eyes General: appearance normal, both eyes and all related structures Neck Neck: Yes normal visual inspection, Yes full ROM and Yes trachea midline Thyroid: Thyroid normal Resp Effort & Inspection: normal respiratory effort, able to speak in complete sentences, no tracheal deviation and symmetric chest movement Auscultation: clear to auscultation bilaterally Cardio Rate: regular rate Heart sounds: S1 normal heart sound present and S2 normal heart sound present GI Inspection: Yes normal to inspection, No distended and Yes obesity Palpation (GI): Soft to palpation, not firm, nontender and No hepatosplenomegaly present Auscultation: normal bowel sounds General: Yes no CVA tenderness Back/Spine/Pelvis Back: no CVA tenderness Skin General skin exam: elasticity normal, turgor normal and dry skin Neuro General: patient oriented x3 Psych Appearance: grossly normal Mental Status: mental status grossly normal Speech and movement: Normal speech and movement present Assessment & Plan Assessment & Plan (1) Constipation: Code(s): K59.00 - Constipation, unspecified Qualifiers: Constipation type: drug induced constipation Qualified Code(s): K59.03 - Drug induced constipation Plan: Patient was encouraged to increase fluid intake. Patient was also encouraged to increase activity to promote better bowel motility. Patient will be started on Linzess. He will call in the office if he continues to be constipated. (2) GERD (gastroesophageal reflux disease): Code(s): K21.9 - Gastro-esophageal reflux disease without esophagitis Qualifiers: Esophagitis presence: esophagitis presence not specified Qualified Code(s): K21.9 - Gastro-esophageal reflux disease without esophagitis Plan: Continue avoiding dietary triggers and late night snacking. Start omeprazole daily. Patient was encouraged to avoid laying down for minimum 3 hours after meals discussed with patient. I will see patient in 2 months, sooner on as needed basis. Patient is agreeable to this plan and verbalizes understanding of instructions. He was given the opportunity to ask questions and all questions answered. Thank you for allowing me to participate in his care Medications: New linaclotide (Linzess) 145 mcg PO DAILY 30 caps 2RF omeprazole 20 mg PO DAILY 30 caps 3RF K21.9 - Gastro-esophageal reflux disease without esophagitis Discontinued folic acid 1 mg PO DAILY 60 tabs 2RF Magic Mouthwash Diphen/Lido/Antacid 1:1:1 Lidocaine Viscous 2 % 80mL; diphenhydramine 12.5 mg/5 mL 80mL; aluminum-mag hydrox-simeth [id number]/5mL 80mL 10 mL PO TID 240 mL 2RF sennosides 17.2 mg (2 x 8.6 mg) PO BEDTIME 180 tabs 2RF K59.00 - Constipation, unspecified Coding Level of Care Code Est Pt Level 4 (31378) Diagnoses Constipation K59.03 Constipation type: drug induced constipation GERD (gastroesophageal reflux disease) K21.9 Esophagitis presence: esophagitis presence not specified Time Spent (min) 40 Comment 25 minutes spent with patient and additional 15 minutes spent reviewing his records
== END 2023-05-30 15:32 | disposition home or self-care (01) ==
LOC: HO.HGI 14:36
PROVIDERS: PCP Registered Nurse; Visit Provider Nurse Practitioner Family
DX: K59.03 Drug induced constipation (principal); K21.9 Gastro-esophageal reflux disease without esophagitis
CPT/HCPCS: 99214

== ENCOUNTER → 2023-05-30 14:36 | Outpatient (BNVA) | payer MEDICAID, SELFPAY | PROVIDERS: PCP Registered Nurse; Visit Provider Nurse Practitioner Family | DX: K59.03 Drug induced constipation (principal); K21.9 Gastro-esophageal reflux disease without esophagitis | CPT/HCPCS: 99214 ==

== ENCOUNTER 2023-06-08 13:56 | Outpatient (REF) | payer MEDICAID, SELFPAY ==
[2023-06-08 16:11] LABS: MANUAL DIFF FLAG NO
[2023-06-08 16:18] LABS: Basophils Percent Auto 0.7 % (0-2); Eosinophils Absolute Auto 0.1 X10*3/uL (0.0-0.4); Eosinophils Percent Auto 1.8 % (0-4); Hematocrit 32.8 % (42.0-52.0); Hemoglobin 10.6 g/dl (14.0-18.0); Imm Gran Abs Auto 0.03 X10*3/uL (0.00-0.03); Imm Gran Pct Auto 0.5 % (0.0-0.4); Lymphocytes Absolute Auto 2.2 X10*3/uL (1.2-4.9); Lymphocytes Percent Auto 36.3 % (20-40); Mean Corpuscular HGB Conc 32.3 g/dl (31.0-36.0); Mean Corpuscular Volume 89.9 fL (80.0-98.0); Mean Platelet Volume 9.2 fL (9.4-12.4); Monocytes Absolute Auto 0.5 X10*3/uL (0.1-1.2); Monocytes Percent Auto 8.4 % (2-11); Neutrophils Absolute Auto 3.1 x10*3/uL (2.0-8.3); Neutrophils Percent Auto 52.3 % (45-73); Platelet Count 313 X10*3/uL (160-400); Red Blood Count 3.65 X10*6/uL (4.60-5.80)
[2023-06-08 16:49] LABS: Alanine Aminotransferase 16 U/L (0-40); Albumin Level 4.5 g/dL (3.5-5.0); Alkaline Phosphatase 96 U/L (39-117); Anion Gap 12 (12-20); Aspartate Amino Transferase 19 U/L (5-37); Bilirubin Total 0.2 mg/dL (0.0-1.0); Blood Urea Nitrogen 16 mg/dL (9-16); Calcium 10.6 mg/dL (8.4-10.2); Carbon Dioxide 31 mmol/L (22-29); Chloride 105 mmol/L (96-108); Estimated Glomerular Filt Rate > 60; Glucose Random 97 mg/dL (60-115); Potassium 5.3 mmol/L (3.3-5.1); Sodium 143 mmol/L (135-145); Total Protein 7.8 g/dL (6.5-8.0)
[2023-06-08 16:50] LABS: Alanine Aminotransferase 15 U/L (0-40); Albumin Level 4.4 g/dL (3.5-5.0); Alkaline Phosphatase 95 U/L (39-117); Anion Gap 11 (12-20); Aspartate Amino Transferase 19 U/L (5-37); Bilirubin Direct < 0.2 mg/dL (0.0-0.5); Bilirubin Total 0.2 mg/dL (0.0-1.0); Blood Urea Nitrogen 16 mg/dL (9-16); Calcium 10.4 mg/dL (8.4-10.2); Carbon Dioxide 31 mmol/L (22-29); Chloride 104 mmol/L (96-108); Cholesterol 192 mg/dL; Estimated Glomerular Filt Rate > 60; Glucose Random 96 mg/dL (60-115); HDL Cholesterol 69 mg/dL; LDL Cholesterol Calculated 105 mg/dl; Potassium 4.4 mmol/L (3.3-5.1); Sodium 142 mmol/L (135-145); Total Protein 7.7 g/dL (6.5-8.0); Triglycerides 91 mg/dL
[2023-06-08 18:11] LABS: Appearance Urine Clear; Color Urine Yellow; Glucose Urine UA Negative (Negative); Leukocyte Esterase Urine Moderate (2+) (Negative); Nitrite Urine Negative (Negative); UMIC TRIGGER UACC YES; Urine Blood Trace (Negative); Urine Ketones Negative (Negative); Urine Protein 30 (1+) mg/dL (Neg-Trace)
[2023-06-08 18:16] LABS: Bacteria Urine None Seen (None Seen); Hyaline Casts Urine 0-2 /LPF (0-2); Squamous Epithelial Cell Urine 0-2 /HPF (0-2); UACC Culture Trigger YES; WBC Urine 21-50 /HPF (0-5)
== END 2023-06-08 13:57 | disposition home or self-care (01) ==
LOC: HO.HHCL 13:56
PROVIDERS: PCP Registered Nurse; Visit Provider Internal Medicine
DX: Z00.00 Encounter for general adult medical examination without abnormal findings (principal); C34.92 Malignant neoplasm of unspecified part of left bronchus or lung; R82.998 Other abnormal findings in urine; K74.00 Hepatic fibrosis, unspecified
CPT/HCPCS: 36415; 80048; 80053; 80061; 80076; 81001; 82248; 83735; 85025; 87086

== ENCOUNTER 2023-06-19 09:22 | Outpatient (AMB) | payer MEDICAID, SELFPAY ==
[2023-06-19 09:39] VITALS: BP 134/78; PULSE 76; O2SAT 95; BMI 41.9
--- NOTE | 2023-06-19 09:39 | MHC.OFFVIS ---
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 The patient was seen by his primary care doctor with he was referred to the lung cancer screening program and underwent a CT scan of the chest. That demonstrated a 1.2 irregular left-sided pulmonary nodule. The patient was referred to the thoracic surgeon will operate on him resecting the nodular density which indeed was malignant. The patient was treated with curative intent. He had the surgery effectively. Now he is having some shortness of breath postop. He still having coughing. She we did review his pulmonary function studies prior to surgery demonstrating a reversible obstruction consistent with asthma. In addition to this the patient is having some shortness of breath and pain upon breathing. He understands that this will take some time to heal after surgery. He does have a follow-up with surgeon on January 23. He does have the bandages all dried up with blood. I did remove and replace it with a Tegaderm just to cover the area that was slightly open. The patient wants to be able to take a shower. The area looks dry enough to be able to do so. In regards of smoking the patient understands he needs to quit. He does have the nicotine patch. A game also the Nicorette gum that he can use intermittently for breakthrough. I did explain to him that he does not want to overdo the Nicorette gum because it will be too high of a nicotine dose. Therefore if he is using the 21 mg patch just to limited to 2-3 a day. 03/02/2023 the patient is here for a pulmonary follow-up visit. The patient has had a very bed for few weeks. He started developing worsening respiratory symptoms as well as significant tachycardia. He was evaluated by Oncology at that time. Because of the significant tachycardia and discomfort he was sent to the ER. There he had a CTA will be in for a pulmonary emboli. The patient subsequently placed on Eliquis. He has been to the ER now multiple times because of recurrent chest pains and shortness of breath. He has chronic pain issues so for him to have pain as very severe he states. Typically the pain is between 8-10/10 the. The pain is mainly at the surgical site. 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 He does have a pleural effusion. He does report to Toradol in the past. However, now that he is on Eliquis and concerned that too much as 3 L can result in increased bleeding. Therefore will back off on using NSAIDs. I will give the patient Percocet in order for him to continue with Tylenol and oxycodone on to try to alleviate the symptoms. Explained to the patient that given a prescription now but does not mean that is going to continue getti controlled pain medications from a. Patient with continued given the Eliquis. He understands very important for him to take it. He also needs to start chemotherapy. I explained to him that I will also agreeable for him to complete the 4 cycles of chemo ended can not be evaluated. I at that point if the be reasonable to sample his lymph nodes we can always consider a endobronchial ultrasound bronchoscopy to given complete reassurance that the mediastinum is clear since he couldnt have a during surgery. 06/19/2023 the patient is here for a pulmonary follow-up visit. The patient overall has been doing better. His pain is better controlled. He continues on the Eliquis for the pulmonary emboli and seems to be tolerating that well. No evidence of any minor major bleeding. He completed his cycles of chemotherapy. Once he has completed with chemotherapy he will have restaging. The patient will follow up with Oncology for that. I did reach out to Oncology to see when he is scheduled to be evaluated. From a respiratory status he continues uses respiratory therapy with good effect. He did quit smoking. He has been about 11 or 12 days. His motivated and reassured. He is eager to find out his response to chemotherapy. [facility] Medical History Asthma-COPD overlap syndrome Depression with anxiety Hepatitis C History of CVA (cerebrovascular accident) (~2008) HLD (hyperlipidemia) Lung cancer (~2022) Methadone maintenance therapy patient Nicotine dependence, cigarettes, uncomplicated Obesity DA (obstructive sleep apnea) Osteoarthritis Pleuritic chest pain Post-thoracotomy pain syndrome Pulmonary emboli Surgical History History of bilateral hip replacements History of carpal tunnel surgery History of colonoscopy History of esophagogastroduodenoscopy (EGD) History of left inguinal hernia repair History of lung surgery Hx of appendectomy Family History Father No problems noted. Mother Family history of high blood pressure Hx of diabetes insipidus Social History Household Members: None Housing: Apartment Do you presently have visiting nurse or other home services: Yes Alcohol intake: former Patient Tobacco Use Status: Current everyday Tobacco user Tobacco use type: Cigarette Years Smoked: (onset 13yo, 1ppd x 44yrs, now 3/4ppd, 40pyh) e-Cigarette/Vaping Use: Currently Using service: No Current occupational status: disabled Review of Systems Const Denies fever(s) and Denies weakness Eyes Denies change in vision ENT Denies dizziness Card Reports chest pain Resp Denies cough and Denies wheezing GI Denies hematochezia and Denies change in stool character Musc Denies abnormal gait, Denies muscle cramps, Denies muscle weakness, Denies numbness, Denies radiating pain into limb and Reports tingling Skin/Breast Reports as per HPI Neuro Denies abnormal gait, Denies dizziness, Denies numbness, Reports tingling and Denies weakness Darin/Lymph Denies easy bleeding, Denies easy bruising and Denies lymphadenopathy Aller/Immun Denies wheezing Physical Exam Vital Signs: Last Vital Signs Pulse 76 06/19/23 09:39 BP 134/78 06/19/23 09:39 Pulse Ox 95 06/19/23 09:39 Oxygen Delivery Method Room Air 06/19/23 09:39 BMI result Body Mass Index 41.9 Const General: comfortable and no acute distress Orientation/consciousness: patient oriented x3 HEENT Other: Unremarkable Head: Yes normal to inspection Neck Neck: Yes normal visual inspection Chest Chest palpation & inspection: other (surgical incisionsions C/D/I) Resp Auscultation: diminished lung sounds Cardio Heart sounds: S1 normal heart sound present and S2 normal heart sound present GI Palpation (GI): Soft to palpation Back/Spine/Pelvis Other: unremarkable Skin Wounds: wounds noted Neuro General: patient oriented x3 Extrem General: Yes normal to inspection Psych Mental Status: mental status grossly normal Assessment & Plan Assessment & Plan (1) Lung cancer: Onset Date: ~2022 Comment: (Adenocarcinoma - s/p PAXTON segmentectomy 12/2022) Code(s): C34.90 - Malignant neoplasm of unspecified part of unspecified bronchus or lung (2) SOB (shortness of breath): Code(s): R06.02 - Shortness of breath (3) Asthma-COPD overlap syndrome: Code(s): J44.9 - Chronic obstructive pulmonary disease, unspecified (4) Nicotine dependence, cigarettes, uncomplicated: Comment: stopped smoking Code(s): F1.210 - Nicotine dependence, cigarettes, uncomplicated (5) Left upper lobe pulmonary nodule: Comment: (1.1 x 1.2 cm lesion in PAXTON - noted on 10/27/22 LDCT) Code(s): R91.1 - Solitary pulmonary nodule (6) Pulmonary emboli: Onset Date: ~02/2023 Code(s): I26.99 - Other pulmonary embolism without acute cor pulmonale (7) Post-thoracotomy pain syndrome: Code(s): G89.12 - Acute post-thoracotomy pain (8) Pleuritic chest pain: Code(s): R07.81 - Pleurodynia Plan continue Eliquis pain control Trelegy inhaler EVELYN as needed continue tobacco cessation F/U with Oncology for restaging after completion of the chemotherapy F/U 4 months Medications: Discontinued folic acid 1 mg PO DAILY 60 tabs 2RF Magic Mouthwash Diphen/Lido/Antacid 1:1:1 Lidocaine Viscous 2 % 80mL; diphenhydramine 12.5 mg/5 mL 80mL; aluminum-mag hydrox-simeth [id number]/5mL 80mL 10 mL PO TID 240 mL 2RF sennosides 17.2 mg (2 x 8.6 mg) PO BEDTIME 180 tabs 2RF K59.00 - Constipation, unspecified Coding Level of Care Code Est Pt Level 4 (40888) Diagnoses Lung cancer C34.90 SOB (shortness of breath) R06.02 Asthma-COPD overlap syndrome J44.9 Nicotine dependence, cigarettes, uncomplicated F17.210 Left upper lobe pulmonary nodule R91.1 Pulmonary emboli I26.99 Post-thoracotomy pain syndrome G89.12 Pleuritic chest pain R07.81 Time Spent (min) 17
== END 2023-06-19 10:13 | disposition home or self-care (01) ==
PROVIDERS: PCP Registered Nurse; Visit Provider Hospitalist
DX: C34.90 Malignant neoplasm of unspecified part of unspecified bronchus or lung (principal); R06.02 Shortness of breath; J44.9 Chronic obstructive pulmonary disease, unspecified; F17.210 Nicotine dependence, cigarettes, uncomplicated; R91.1 Solitary pulmonary nodule; I26.99 Other pulmonary embolism without acute cor pulmonale; G89.12 Acute post-thoracotomy pain; R07.81 Pleurodynia
CPT/HCPCS: 99214

== ENCOUNTER → 2023-06-19 09:22 | Outpatient (BNVA) | payer MEDICAID, SELFPAY | PROVIDERS: PCP Registered Nurse; Visit Provider Hospitalist | DX: C34.12 Malignant neoplasm of upper lobe, left bronchus or lung (principal); J44.9 Chronic obstructive pulmonary disease, unspecified; I26.99 Other pulmonary embolism without acute cor pulmonale; G89.12 Acute post-thoracotomy pain; R07.81 Pleurodynia; F17.210 Nicotine dependence, cigarettes, uncomplicated; Z79.01 Long term (current) use of anticoagulants | CPT/HCPCS: 99212 ==

== ENCOUNTER 2023-07-24 13:50 | Outpatient (AMB) | payer MEDICAID, SELFPAY ==
--- NOTE | 2023-07-24 13:55 | A.OFFVIS_ITS ---
Intake Vital Signs 07/24/23 14:02 Height 5 ft 8 in Weight 279 lb BMI 42.4 BP 155/83 H Blood Pressure Location Lt brachial Position Sitting Pulse 66 Intake Visit Reasons: 2 month follow up Intake Note: Dru presents in the office as a 2 month follow up. CC: He has concerns regarding his lung cancer - just finished the chemo. he has a CT scan on the and wants to make sure he is neg. Senior Quantity Surveyor Required: No Allergies Penicillins [PENICILLINS] Allergy (Unknown, Verified 07/24/23 14:03) UNKNOWN HPI 2 month follow up HPI Details LAST VISIT: Constipation Patient was encouraged to increase fluid intake. Patient was also encouraged to increase activity to promote better bowel motility. Patient will be started on Linzess. He will call in the office if he continues to be constipated. GERD (gastroesophageal reflux disease) Continue avoiding dietary triggers and late night snacking. Start omeprazole daily. Patient was encouraged to avoid laying down for minimum 3 hours after meals discussed with patient. I will see patient in 2 months, sooner on as needed basis. Patient is agreeable to this plan and verbalizes understanding of instructions. He was given the opportunity to ask questions and all questions answered. ? TODAY'S VISIT: Patient is here today for follow-up. Patient reports that since the last time I have seen her he stopped chemotherapy. Still wakes up during the night occasionally vomiting. Patient is taking Linzess 145 mcg daily, however feels like it is not working any more. Medication was working in the very beginning, however currently patient goes few days without having a bowel movement. In December of this year patient had partial lumpectomy of the left lung for tumar removal. Unable to remove the lymph nodes at the time of the surgery and patient was placed on chemotherapy. About month ago patient stopped chemotherapy treatment and is going next week for repeat CT scan with IV contrast. Patient is seeing oncologist next week as well to figure out the next step for treatment. Patient had as mentioned previously colonoscopy in 2011 in [place]. Patient states that he had a polyp, however unsure of what kind. Patient reports that he had anesthesia, however he woke up in the middle of the procedure. Patient does have high tolerance of pain and anesthesia medications due to previous history of drug use. However patient has been clean for the last 4 years and currently is on methadone. Patient was diagnosed with sleep apnea, is not using CPAP machine, patient reports that he actually gets very interrupted sleep when he uses the machine. Patient is currently on blood thinner for PE found in February of 2023 [facility] Medical History Pulmonary emboli Osteoarthritis Pleuritic chest pain Post-thoracotomy pain syndrome Asthma-COPD overlap syndrome Lung cancer (~2022) Nicotine dependence, cigarettes, uncomplicated Depression with anxiety Obesity DA (obstructive sleep apnea) Hepatitis C HLD (hyperlipidemia) Methadone maintenance therapy patient History of CVA (cerebrovascular accident) (~2008) Surgical History Hx of appendectomy History of lung surgery History of bilateral hip replacements History of carpal tunnel surgery History of left inguinal hernia repair History of esophagogastroduodenoscopy (EGD) History of colonoscopy Family History Father No problems noted. Mother Family history of high blood pressure Hx of diabetes insipidus Social History Household Members: None Housing: Apartment Do you presently have visiting nurse or other home services: Yes Alcohol intake: former Patient Tobacco Use Status: Current everyday Tobacco user Tobacco use type: Cigarette Years Smoked: (onset 13yo, 1ppd x 44yrs, now 3/4ppd, 40pyh) e-Cigarette/Vaping Use: Currently Using service: No Current occupational status: disabled Review of Systems Const Denies weight gain and Denies weight loss ENT Reports no additional complaints, Denies dysphagia and Denies odynophagia Card Reports no additional complaints Resp Reports no additional complaints GI Denies abdominal pain, Denies belching, Denies melena, Reports bloating, Denies change in bowel habits, Reports constipation, Denies dysphagia, Denies excessive flatus, Denies dyspepsia, Reports heartburn, Denies diarrhea, Denies loose stools, Denies nausea, Denies odynophagia and Denies vomiting Reports no additional complaints Musc Reports no additional complaints Neuro Reports no additional complaints Psych Reports no additional complaints Endo Reports no additional complaints Physical Exam Vital Signs: Last Vital Signs Pulse 66 07/24/23 14:02 BP 155/83 H 07/24/23 14:02 BMI result Body Mass Index 42.4 Const General: healthy appearing, no acute distress and well developed Nutritional Appearance: obese Orientation/consciousness: patient oriented x3 HEENT Head: Yes normal to inspection, Yes normocephalic and Yes atraumatic Face and sinus: Yes normal facial exam Mouth: Normal oral and palatal mucosa present Throat: Yes posterior oropharynx normal, Yes tonsils normal and Yes uvula midline Eyes General: appearance normal, both eyes and all related structures Neck Neck: Yes normal visual inspection, Yes full ROM and Yes trachea midline Thyroid: Thyroid normal Resp Effort & Inspection: normal respiratory effort, able to speak in complete sentences, no tracheal deviation and symmetric chest movement Auscultation: clear to auscultation bilaterally Cardio Rate: regular rate Heart sounds: S1 normal heart sound present and S2 normal heart sound present GI Inspection: Yes normal to inspection, No distended and Yes obesity Palpation (GI): Soft to palpation, not firm, nontender and No hepatosplenomegaly present Auscultation: normal bowel sounds General: Yes no CVA tenderness Back/Spine/Pelvis Back: no CVA tenderness Skin General skin exam: elasticity normal, turgor normal and dry skin Neuro General: patient oriented x3 Psych Appearance: grossly normal Mental Status: mental status grossly normal Speech and movement: Normal speech and movement present Assessment & Plan Assessment & Plan (1) Constipation: Code(s): K59.00 - Constipation, unspecified Qualifiers: Constipation type: drug induced constipation Qualified Code(s): K59.03 - Drug induced constipation (2) GERD (gastroesophageal reflux disease): Code(s): K21.9 - Gastro-esophageal reflux disease without esophagitis Qualifiers: Esophagitis presence: esophagitis presence not specified Qualified Code(s): K21.9 - Gastro-esophageal reflux disease without esophagitis (3) Screen for colon cancer: Code(s): Z12.11 - Encounter for screening for malignant neoplasm of colon (4) Postprandial abdominal bloating: Code(s): R14.0 - Abdominal distension (gaseous) Plan Long discussion with patient how to prep. Patient is constipated will try Linzess 290 mcg. Patient recently had surgery and did well with anesthesia. However patient has high tolerance to medications due to previous history of drug abuse. Patient currently is on methadone. Patient was encouraged to increase fluid intake and activity to promote better bowel motility. Patient will be booked today for upper endoscopy and colonoscopy. I will see patient after the procedure. He is agreeable to this plan and verbalizes understanding of instructions. He was given the opportunity to ask questions and all questions answered. Thank you for allowing me to participate in his care Medications: New linaclotide (Linzess) 290 mcg PO QAM 30 caps 4RF K59.00 - Constipation, unspeci fied bisacodyl (Dulcolax (bisacodyl)) take 2 tabs at noon the day before your colonoscopy 10 mg (2 x 5 mg) PO ONCE 2 tabs 0RF 1 day Z12.11 - Encounter for screening for malignant neoplasm of colon polyethylene glycol 3350 (Miralax) As directed by gastroenterology department at [facility] 238 grams PO ONCE 238 grams 0RF Z12.11 - Encounter for screening for malignant neoplasm of colon simethicone (Gas Relief (simethicone)) 125 mg PO TID-QID PRN 120 caps 2RF abdominal distention Discontinued linaclotide Discontinued Reason: Doctor's Order 145 mcg PO DAILY 30 caps 2RF Coding Level of Care Code Est Pt Level 4 (99570) Diagnoses Drug-induced constipation K59.03 Constipation type: drug induced constipation Gastroesophageal reflux disease, unspecified whether esophagitis present K21.9 Esophagitis presence: esophagitis presence not specified Screen for colon cancer Z12.11 Postprandial abdominal bloating R14.0 Time Spent (min) 40 Comment 25 minutes spent with patient and additional 15 minutes spent reviewing his records.
[2023-07-24 14:02] VITALS: BP 155/83; PULSE 66; BMI 42.4
== END 2023-07-24 14:48 | disposition home or self-care (01) ==
PROVIDERS: PCP Registered Nurse; Visit Provider Nurse Practitioner Family
DX: K59.03 Drug induced constipation (principal); K21.9 Gastro-esophageal reflux disease without esophagitis; Z12.11 Encounter for screening for malignant neoplasm of colon; R14.0 Abdominal distension (gaseous)
CPT/HCPCS: 99214

== ENCOUNTER → 2023-07-24 13:50 | Outpatient (BNVA) | payer MEDICAID, SELFPAY | PROVIDERS: PCP Registered Nurse; Visit Provider Nurse Practitioner Family | DX: K21.9 Gastro-esophageal reflux disease without esophagitis (principal); K59.03 Drug induced constipation; T50.905A Adverse effect of unspecified drugs, medicaments and biological substances, initial encounter; R14.0 Abdominal distension (gaseous) | CPT/HCPCS: 99212 ==

== ENCOUNTER 2023-07-31 12:55 | Outpatient (REF) | payer MEDICAID, SELFPAY ==
--- NOTE | ~2023-07-31 | CT_ITS ---
EXAMINATION: CT CHEST WITHOUT CONTRAST CLINICAL INFORMATION: Solitary pulmonary nodule. History given on prior imaging includes a diagnosis of lung cancer. COMPARISON: PET/CT 02/27/2023. Lung cancer screening CT 10/27/2022. TECHNIQUE: Multidetector volumetric CT imaging of the chest was done. Axial MIP volume rendering provided. Sagittal and coronal reformatted images were obtained. This CT examination was performed using dose optimization techniques as appropriate, variously including the following: *Automated exposure control *Adjustment of mA and/or kV according to patient size (this includes techniques or standardized protocols for targeted exams where dose is matched to indication/reason for exam; i.e. extremities or head) *Use of iterative reconstruction technique DLP: 261 mGy-cm FINDINGS: LUNGS: Resection in the left upper lung with improved soft tissue thickening along the staple line consistent with scar tissue remodeling. New atelectasis in the medial aspect of the left lower lobe has a somewhat nodular appearance on axial images but appears more linear on the reformatted images. MEDIASTINUM: Incompletely visualized right chest wall port with catheter tip in the distal SVC. No mediastinal adenopathy. No pericardial effusion. CORONARY ARTERY CALCIFICATION: Mild LAD calcium. PLEURA: Mild chronic pleural thickening along the left posterior pleura consistent with postoperative changes. AXILLA: No adenopathy. UPPER ABDOMEN: No significant abnormality demonstrated. No adrenal mass. OSSEOUS STRUCTURES: Degenerative changes in the spine. Healed nondisplaced fractures of the lateral left seventh, eighth, ninth ribs. CT/CT chest wo IV con IMPRESSION: Posterior left upper lobe resection with improved soft tissue thickening along the staple line consistent with scar tissue remodeling. New atelectasis in the left lower lobe has a somewhat nodular appearance on the axial images but appears more linear on the reformatted images and is favored to represent atelectasis. Recommend attention on follow-up imaging as per oncologic protocol. Fleischner guidelines do not apply.
== END 2023-07-31 12:56 | disposition home or self-care (01) ==
LOC: HO.CT 12:55
PROVIDERS: PCP Registered Nurse; Visit Provider Surgery
DX: R91.1 Solitary pulmonary nodule (principal)
CPT/HCPCS: 71250

== ENCOUNTER 2023-09-03 18:07 | Outpatient (REF) | payer MEDICAID, SELFPAY ==
[2023-09-03 18:20] LABS: Appearance Urine Clear; Color Urine Yellow; Glucose Urine UA Negative (Negative); Leukocyte Esterase Urine Trace (Negative); Nitrite Urine Negative (Negative); Specific Gravity - Urine 1.015 (1.005-1.025); UMIC TRIGGER UACC YES; Urine Blood Negative (Negative); Urine Ketones Negative (Negative); Urine Protein 30 (1+) mg/dL (Neg-Trace)
[2023-09-03 18:25] LABS: Bacteria Urine None Seen (None Seen); Hyaline Casts Urine 0-2 /LPF (0-2); RBC Urine 0-2 /HPF (0-2); Squamous Epithelial Cell Urine 0-2 /HPF (0-2); UACC Culture Trigger YES
== END 2023-09-03 18:08 | disposition home or self-care (01) ==
LOC: HO.HHCLNP 18:07
PROVIDERS: Visit Provider Registered Nurse
DX: R80.9 Proteinuria, unspecified (principal)
CPT/HCPCS: 81001

== ENCOUNTER 2023-10-16 10:01 | Outpatient (AMB) | payer MEDICAID, SELFPAY ==
[2023-10-16 10:11] VITALS: PULSE 67; O2SAT 97; BMI 42.6
--- NOTE | 2023-10-16 10:11 | A.OFFVIS_ITS ---
Intake Vital Signs 10/16/23 10:11 Height 5 ft 8 in Weight 280 lb BMI 42.6 Pulse 67 Pulse Source Pulse Oximeter Pulse Oximetry (%) 97 Oxygen Delivery Method Room Air Intake Visit Reasons: Shortness of breath Review Assistant Required: No Allergies Penicillins [PENICILLINS] Allergy (Unknown, Verified 10/16/23 10:13) UNKNOWN HPI HPI Comments History of Present Illness Details The patient is a 58-year-old gentleman active smoker who was started developing worsening cough. The patient was seen by his primary care doctor with he was referred to the lung cancer screening program and underwent a CT scan of the chest. That demonstrated a 1.2 irregular left-sided pulmonary nodule. The patient was referred to the thoracic surgeon will operate on him resecting the nodular density which indeed was malignant. The patient was treated with curative intent. He had the surgery effectively. Now he is having some shortness of breath postop. He still having coughing. She we did review his pulmonary function studies prior to surgery demonstrating a reversible obstruction consistent with asthma. In addition to this the patient is having some shortness of breath and pain upon breathing. He understands that this will take some time to heal after surgery. He does have a follow-up with surgeon on January 23. He does have the bandages all dried up with blood. I did remove and replace it with a Tegaderm just to cover the area that was slightly open. The patient wants to be able to take a shower. The area looks dry enough to be able to do so. In regards of smoking the patient understands he needs to quit. He does have the nicotine patch. A game also the Nicorette gum that he can use intermittently for breakthrough. I did explain to him that he does not want to overdo the Nicorette gum because it will be too high of a nicotine dose. Therefore if he is using the 21 mg patch just to limited to 2-3 a day. 03/02/2023 the patient is here for a pulm onary follow-up visit. The patient has had a very bed for few weeks. He started developing worsening respiratory symptoms as well as significant tachycardia. He was evaluated by Oncology at that time. Because of the significant tachycardia and discomfort he was sent to the ER. There he had a CTA will be in for a pulmonary emboli. The patient subsequently placed on Eliquis. He has been to the ER now multiple times because of recurrent chest pains and shortness of breath. He has chronic pain issues so for him to have pain as very severe he states. Typically the pain is between 8-10/10 the. The pain is mainly at the surgical site. 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 He does have a pleural effusion. He does report to Toradol in the past. However, now that he is on Eliquis and concerned that too much as 3 L can result in increased bleeding. Therefore will back off on using NSAIDs. I will give the patient Percocet in order for him to continue with Tylenol and oxycodone on to try to alleviate the symptoms. Explained to the patient that given a prescription now but does not mean that is going to continue getti controlled pain medications from a. Patient with continued given the Eliquis. He understands very important for him to take it. He also needs to start chemotherapy. I explained to him that I will also agreeable for him to complete the 4 cycles of chemo ended can not be evaluated. I at that point if the be reasonable to sample his lymph nodes we can always consider a endobronchial ultrasound bronchoscopy to given complete reassurance that the mediastinum is clear since he couldnt have a during surgery. 06/19/2023 the patient is here for a pulm onary follow-up visit. The patient overall has been doing better. His pain is better controlled. He continues on the Eliquis for the pulmonary emboli and seems to be tolerating that well. No evidence of any minor major bleeding. He completed his cycles of chemotherapy. Once he has completed with chemotherapy he will have restaging. The patient will follow up with Oncology for that. I did reach out to Oncology to see when he is scheduled to be evaluated. From a respiratory status he continues uses respiratory therapy with good effect. He did quit smoking. He has been about 11 or 12 days. His motivated and reassured. He is eager to find out his response to chemotherapy. 10/16/2023 the patient is here for a pul monary follow-up visit. He continues to do fairly well from a respiratory status. Does complaint of the pleuritic chest discomfort after his surgery. Explained to him that this could be a chronic issue for him. In addition to that he continues on the Eliquis 5 mg twice a day. He is tolerating that well without any evidence of any adverse effects. We talked about the importance of continuing the medication. Will reassess with a V/Q scan in the springtime to see if there is any evidence of any chronic clot. At that point once he completes a year worth of therapy we can consider prophylactic dose of 2.5 twice a day versus continuing the 5 mg twice a day. Based on the fact that he is at cancer I will recommend that he continue some degree of anticoagulation this time. We talked about the importance of smoking cessation. He is willing to try the patch again. He would like to quit for 2023. Otherwise he is without any other complaints. [facility] Medical History Pulmonary emboli Osteoarthritis Pleuritic chest pain Post-thoracotomy pain syndrome Asthma-COPD overlap syndrome Lung cancer (~2022) Nicotine dependence, cigarettes, uncomplicated Depression with anxiety Obesity DA (obstructive sleep apnea) Hepatitis C HLD (hyperlipidemia) Methadone maintenance therapy patient History of CVA (cerebrovascular accident) (~2008) Surgical History Hx of appendectomy History of lung surgery History of bilateral hip replacements History of carpal tunnel surgery History of left inguinal hernia repair History of esophagogastroduodenoscopy (EGD) History of colonoscopy Family History Father No problems noted. Mother Family history of high blood pressure Hx of diabetes insipidus Social History Household Members: None Housing: Apartment Do you presently have visiting nurse or other home services: Yes Alcohol intake: former Patient Tobacco Use Status: Current everyday Tobacco user Tobacco use type: Cigarette Years Smoked: (onset 13yo, 1ppd x 44yrs, now 3/4ppd, 40pyh) e-Cigarette/Vaping Use: Currently Using service: No Current occupational status: disabled Review of Systems Const Denies fever(s) and Denies weakness Eyes Denies change in vision ENT Denies dizziness Card Reports chest pain Resp Denies cough and Denies wheezing GI Denies hematochezia and Denies change in stool character Musc Denies abnormal gait, Denies muscle cramps, Denies muscle weakness, Denies numbness, Denies radiating pain into limb and Reports tingling Skin/Breast Reports as per HPI Neuro Denies abnormal gait, Denies dizziness, Denies numbness, Reports tingling and Denies weakness Darin/Lymph Denies easy bleeding, Denies easy bruising and Denies lymphadenopathy Aller/Immun Denies wheezing Physical Exam Vital Signs: Last Vital Signs Pulse 67 10/16/23 10:11 Pulse Ox 97 10/16/23 10:11 Oxygen Delivery Method Room Air 10/16/23 10:11 BMI result Body Mass Index 42.6 Const General: comfortable and no acute distress Orientation/consciousness: patient oriented x3 HEENT Other: Unremarkable Head: Yes normal to inspection Neck Neck: Yes normal visual inspection Chest Chest palpation & inspection: other (surgical incisionsions C/D/I) Resp Auscultation: diminished lung sounds Cardio Heart sounds: S1 normal heart sound present and S2 normal heart sound present GI Palpation (GI): Soft to palpation Back/Spine/Pelvis Other: unremarkable Skin Wounds: wounds noted Neuro General: patient oriented x3 Extrem General: Yes normal to inspection Psych Mental Status: mental status grossly normal Assessment & Plan Assessment & Plan (1) Lung cancer: Onset Date: ~2022 Comment: (Adenocarcinoma - s/p PAXTON segmentectomy 12/2022) Code(s): C34.90 - Malignant neoplasm of unspecified part of unspecified bronchus or lung Qualifiers: Laterality: left Lung location: upper lobe of lung Qualified Code(s): C34.12 - Malignant neoplasm of upper lobe, left bronchus or lung (2) SOB (shortness of breath): Code(s): R06.02 - Shortness of breath (3) Asthma-COPD overlap syndrome: Code(s): J44.9 - Chronic obstructive pulmonary disease, unspecified (4) Nicotine dependence, cigarettes, uncomplicated: Comment: stopped smoking Code(s): F17.210 - Nicotine dependence, cigarettes, uncomplicated (5) Left upper lobe pulmonary nodule: Comment: (1.1 x 1.2 cm lesion in PAXTON - noted on 10/27/22 LDCT) Code(s): R91.1 - Solitary pulmonary nodule (6) Pulmonary emboli: Onset Date: ~02/2023 Code(s): I26.99 - Other pulmonary embolism without acute cor pulmonale Qualifiers: Pulmonary embolism type: single subsegmental (without acute cor pulmonale) Qualified Code(s): I26.93 - Single subsegmental pulmonary embolism without acute cor pulmonale (7) Post-thoracotomy pain syndrome: Code(s): G89.12 - Acute post-thoracotomy pain Plan continue Eliquis VQ scan in 3 months to assure resolution of PE Trelegy inhaler EVELYN as needed continue tobacco cessation F/U 4-6 months Orders: Orders NM pul vent and perfuse Today I26.99 - Other pulmonary embolism without acute cor pulmonale XR chest 2V Today I26.99 - Other pulmonary embolism without acute cor pulmonale Medications: New nicotine 1 patch transdermal Q24H 28 days 28 ea 11RF Coding Level of Care Code Est Pt Level 4 (19328) Diagnoses Malignant neoplasm of upper lobe of left lung C34.12 Laterality: left Lung location: upper lobe of lung SOB (shortness of breath) R06.02 Asthma-COPD overlap syndrome J44.9 Nicotine dependence, cigarettes, uncomplicated F17.210 Left upper lobe pulmonary nodule R91.1 Single subsegmental pulmonary embolism without acute cor pulmonale I26.93 Pulmonary embolism type: single subsegmental (without acute cor pulmonale) Post-thoracotomy pain syndrome G89.12 Time Spent (min) 17
== END 2023-10-16 10:41 | disposition home or self-care (01) ==
PROVIDERS: PCP Registered Nurse; Visit Provider Hospitalist
DX: C34.12 Malignant neoplasm of upper lobe, left bronchus or lung (principal); R06.02 Shortness of breath; J44.9 Chronic obstructive pulmonary disease, unspecified; F17.210 Nicotine dependence, cigarettes, uncomplicated; R91.1 Solitary pulmonary nodule; I26.93 Single subsegmental thrombotic pulmonary embolism without acute cor pulmonale; G89.12 Acute post-thoracotomy pain
CPT/HCPCS: 99214

== ENCOUNTER → 2023-10-16 10:01 | Outpatient (BNVA) | payer MEDICAID, SELFPAY | PROVIDERS: PCP Registered Nurse; Visit Provider Hospitalist | DX: C34.12 Malignant neoplasm of upper lobe, left bronchus or lung (principal); R06.02 Shortness of breath; J44.9 Chronic obstructive pulmonary disease, unspecified; R91.1 Solitary pulmonary nodule; I26.93 Single subsegmental thrombotic pulmonary embolism without acute cor pulmonale; G89.12 Acute post-thoracotomy pain; F17.210 Nicotine dependence, cigarettes, uncomplicated | CPT/HCPCS: 99212 ==

== ENCOUNTER 2023-12-04 13:15 | Outpatient (AMB) | payer MEDICAID, SELFPAY ==
[2023-12-04 13:22] VITALS: BP 150/78; PULSE 73; BMI 45.2
--- NOTE | 2023-12-04 13:22 | MHC.OFFVIS ---
Intake Vital Signs 12/04/23 13:22 Height 5 ft 8 in Weight 297 lb 9.985 oz BMI 45.2 BP 150/78 H Blood Pressure Location Lt brachial Position Sitting Pulse 73 Intake Visit Reasons: 1 yr Intake Note: 1 year follow up Cook Fast Food Required: No Accompanied by: Self / Same As Patient Allergies Penicillins [PENICILLINS] Allergy (Unknown, Verified 12/04/23 13:25) UNKNOWN Medication List - Last Reconciled 12/04/23 by Rivera Jaime MD albuterol sulfate 90 mcg/actuation (Ventolin HFA) 2 puffs inhalation QID PRN 30 days apixaban (Eliquis) 5 mg PO BID budesonide-formoterol 160-4.5 mcg/actuation (Symbicort) 2 puffs inhalation BID duloxetine 60 mg PO DAILY fluticasone furoate-vilanterol 200-25 mcg/dose (Breo Ellipta) 1 inh inhalation DAILY 30 days folic acid 1 mg PO DAILY furosemide 20 mg PO DAILY gabapentin 300 mg PO BID linaclotide (Linzess) 290 mcg PO QAM Magic Mouthwash Diphen/Lido/Antacid 1:1:1 10 mL PO TID methadone 90 mg PO DAILY methadone 50 mg PO BEDTIME multivitamin 1 tab PO DAILY nicotine 1 patch transdermal Q24H 28 days omeprazole 20 mg PO DAILY polyethylene glycol 3350 (Miralax) 238 grams PO ONCE rosuvastatin (Crestor) 20 mg PO DAILY sennosides (Evac-U-Gen (sennosides)) 8.6 mg PO BEDTIME PRN simethicone (Gas Relief (simethicone)) 125 mg PO TID-QID PRN trazodone 100 mg PO BEDTIME PRN umeclidinium 62.5 mcg/actuation (Incruse Ellipta) 1 inh inhalation DAILY 30 days HPI HPI Comments History of Present Illness Details Dru returns for follow-up. In the past, he was having shortness of breath and that led to further evaluation including echocardiogram, stress test and coronary CTA. That revealed anomalous coronary artery. He was referred to the [facility] at [facility] but was not recommend any interventions. From the cardiac standpoint, he does not really have any new problems. He does have aches and pains all over from musculoskeletal reasons but nothing clearly cardiac. He states he is going to go for a knee surgery soon. [facility] Medical History Pulmonary emboli Osteoarthritis Pleuritic chest pain Post-thoracotomy pain syndrome Asthma-COPD overlap syndrome Lung cancer (~2022) Nicotine dependence, cigarettes, uncomplicated Depression with anxiety Obesity DA (obstructive sleep apnea) Hepatitis C HLD (hyperlipidemia) Methadone maintenance therapy patient History of CVA (cerebrovascular accident) (~2008) Surgical History Hx of appendectomy History of lung surgery History of bilateral hip replacements History of carpal tunnel surgery History of left inguinal hernia repair History of esophagogastroduodenoscopy (EGD) History of colonoscopy Family History Father No problems noted. Mother Family history of high blood pressure Hx of diabetes insipidus Social History Household Members: None Housing: Apartment Do you presently have visiting nurse or other home services: Yes Alcohol intake: former Patient Tobacco Use Status: Current everyday Tobacco user Tobacco use type: Cigarette Years Smoked: (onset 13yo, 1ppd x 44yrs, now 3/4ppd, 40pyh) e-Cigarette/Vaping Use: Currently Using service: No Current occupational status: disabled Review of Systems Const Denies weakness ENT Denies dizziness Card Denies chest pain, Denies chest pain with activity, Denies syncope, Denies rapid heart rate, Denies pedal edema, Denies edema, Denies leg edema, Denies lightheadedness, Denies palpitations, Denies dyspnea, Denies dyspnea on exertion and Denies orthopnea Resp Denies cough, Denies dyspnea and Denies dyspnea on exertion GI Denies hematochezia and Denies change in stool character Musc Denies abnormal gait, Denies muscle cramps, Denies muscle weakness, Denies numbness, Denies radiating pain into limb and Denies tingling Neuro Denies abnormal gait, Denies dizziness, Denies syncope, Denies numbness, Denies tingling and Denies weakness Endo Denies palpitations Physical Exam Vital Signs: Last Vital Signs Pulse 73 12/04/23 13:22 BP 150/78 H 12/04/23 13:22 BMI result Body Mass Index 45.2 Const General: comfortable and no acute distress Orientation/consciousness: patient oriented x3 HEENT Other: Unremarkable Head: Yes normal to inspection Neck Neck: Yes normal visual inspection Chest Chest palpation & inspection: normal inspection of the chest Resp Auscultation: clear to auscultation bilaterally Cardio Palpation: normal PMI Heart sounds: S1 normal heart sound present, S2 normal heart sound present, no gallops, no murmurs and no rubs GI Palpation (GI): Soft to palpation Back/Spine/Pelvis Other: unremarkable Skin General skin exam: no rashes or lesions noted Neuro General: patient oriented x3 Extrem General: Yes normal to inspection Psych Mental Status: mental status grossly normal Office Procedures EKG Details: EKG with underlying sinus rhythm at 62/Min; no significant ST-T changes and otherwise unremarkable. [place]. [id number], Complete Assessment & Plan Assessment & Plan (1) Pre-operative cardiovascular examination: Code(s): Z01.810 - Encounter for preprocedural cardiovascular examination (2) Anomalous right coronary artery: Code(s): Q24.5 - Malformation of coronary vessels (3) Atherosclerotic cardiovascular disease: Code(s): I25.10 - Atherosclerotic heart disease of [place] coronary artery without angina pectoris Plan Cardiac studies reviewed. Echocardiogram with LVEF 60-65% and without any valvular pathology. Myocardial perfusion imaging had shown possible septal ischemia. As he was having significant hip pain, pharmacological stress was performed. 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 Proximal portion travels between the ascending aorta and main pulmonary artery. About 50% narrowing at the most proximal RCA as it travels between the major arteries. In the mid RCA about 60% stenosis from noncalcified plaque. Mild calcification the LAD. Per prior discussion with congenital heart disease clinic/Dr. Arce, no interventions planned at this time. With regard to knee surgery, may proceed as planned. Intermediate cardiac risk. With regard to the non obstructive CAD, fairly mild, main recommendations are still risk factor modification with aggressive weight loss, cessation of smoking, statins. We discussed about this today. Coding Level of Care Code Est Pt Level 4 (13824) Diagnoses Pre-operative cardiovascular examination Z01.810 Anomalous right coronary artery Q24.5 Atherosclerotic cardiovascular disease I25.10 CPT Codes EKG - CPT: 77811-[id number], Complete ([id number])
== END 2023-12-04 13:53 | disposition home or self-care (01) ==
PROVIDERS: PCP Registered Nurse; Referring Provider Registered Nurse; Visit Provider Internal Medicine
DX: Z01.810 Encounter for preprocedural cardiovascular examination (principal); Q24.5 Malformation of coronary vessels; I25.10 Atherosclerotic heart disease of native coronary artery without angina pectoris
CPT/HCPCS: 93010; 99214

== ENCOUNTER → 2023-12-04 13:15 | Outpatient (BNVA) | payer MEDICAID, SELFPAY | PROVIDERS: PCP Registered Nurse; Visit Provider Internal Medicine | DX: Z01.810 Encounter for preprocedural cardiovascular examination (principal); I25.10 Atherosclerotic heart disease of native coronary artery without angina pectoris; Q24.5 Malformation of coronary vessels | CPT/HCPCS: 93005; 99212 ==

== ENCOUNTER 2024-01-14 14:13 | Outpatient (AMB) | payer MEDICAID, SELFPAY ==
--- NOTE | 2024-01-14 14:26 | MHC.OFFVIS ---
Intake Intake Visit Reasons: Proteinuria Intake Note: New Patient presents today to establish treatment for Proteinuria Meds- None Allergies to Antibiotic- Penicillins Blood Thinner- None Patient stated he is a smoker. He also stated his urine looks very foamy. Pillow Filler Required: No Accompanied by: Self / Same As Patient Allergies Penicillins [PENICILLINS] Allergy (Unknown, Verified 01/14/24 14:59) UNKNOWN HPI HPI Comments History of Present Illness Details Dru is a 58-year-old male who is here for evaluation for microscopic hematuria and proteinuria. He states that he when he urinates he sees suds. He denies dysuria. The patient is followed by Oncology for lung cancer. Status post lobectomy, December 2022. The patient had a PET CT last year which I have reviewed, urinary tract was within normal limits. Discussed re-evaluation of kidneys with renal ultrasound. Will send urine for cytology and surveillance urine culture. Follow-up office cystoscopy, PSA prior. [facility] Medical History Pulmonary emboli Osteoarthritis Pleuritic chest pain Post-thoracotomy pain syndrome Asthma-COPD overlap syndrome Lung cancer (~2022) Nicotine dependence, cigarettes, uncomplicated Depression with anxiety Obesity DA (obstructive sleep apnea) Hepatitis C HLD (hyperlipidemia) Methadone maintenance therapy patient History of CVA (cerebrovascular accident) (~2008) Surgical History Hx of appendectomy History of lung surgery History of bilateral hip replacements History of carpal tunnel surgery History of left inguinal hernia repair History of esophagogastroduodenoscopy (EGD) History of colonoscopy Family History Father No problems noted. Mother Family history of high blood pressure Hx of diabetes insipidus Social History Household Members: None Housing: Apartment Do you presently have visiting nurse or other home services: Yes Alcohol intake: former Patient Tobacco Use Status: Current everyday Tobacco user Tobacco use type: Cigarette Years Smoked: (onset 13yo, 1ppd x 44yrs, now 3/4ppd, 40pyh) e-Cigarette/Vaping Use: Currently Using service: No Current occupational status: disabled Review of Systems Const All systems reviewed & are unremarkable except as noted in HPI and below Reports no additional complaints Eyes Reports no additional complaints ENT Reports no additional complaints Card Reports no additional complaints Resp Reports no additional complaints GI Reports no additional complaints Reports as per HPI Musc Reports no additional complaints Skin/Breast Reports system reviewed and no additional complaints, except as documented Neuro Reports no additional complaints Psych Reports no additional complaints Endo Reports no additional complaints Darin/Lymph Reports no additional complaints Aller/Immun Reports no additional complaints Physical Exam Const General: healthy appearing, no acute distress and well developed Nutritional Appearance: overweight Orientation/consciousness: patient oriented x3 HEENT Head: Yes normocephalic and Yes atraumatic Eyes Conjunctivae: conjunctivae normal Neck Neck: Yes normal visual inspection Chest Chest palpation & inspection: normal inspection of the chest Resp Effort & Inspection: normal respiratory effort Cardio Rate: regular rate GI Inspection: Yes normal to inspection Skin General skin exam: no rashes or lesions noted Neuro General: patient oriented x3 Extrem General: No pedal edema Psych Appearance: grossly normal Affect: normal affect Results AMB Urinalysis, Automated UA Leukoctes 70 Teena/uL Last Edit by Willow Whipple [facility] on 01/14/24 14:53 UA Nitrite Negative Last Edit by Willow Whipple [facility] on 01/14/24 14:53 UA Urobilinogen 3.5 mg/dL Last Edit by Willow Whipple [facility] on 01/14/24 14:53 UA Protein 0.3 mg/dL Last Edit by Willow Whippleflorin Whipple [facility] on 01/14/24 14:53 UA pH 5.5 Last Edit by Willow Whipple [facility] on 01/14/24 14:53 UA Blood 25 Dayron/uL Last Edit by Willow Whippleflorin Whipple [facility] on 01/14/24 14:53 UA Specific [place] 1.015 Last Edit by Willow Whipple [facility] on 01/14/24 14:53 UA Ketone Negative Last Edit by Willow Whipple [facility] on 01/14/24 14:53 UA Bilirubin 0 mg/dL Last Edit by Willow Whippleflorin Whipple [facility] on 01/14/24 14:53 UA Glucose 0 mg/dL Last Edit by Willow Whippleflorin Whipple [facility] on 01/14/24 14:53 Results Reviewed Results Reviewed: Laboratory Last Values Urine pH (Auto) 5.5 01/14/24 14:39 Specific [place] (Auto) 1.015 01/14/24 14:39 Urine Protein (Auto) 0.3 mg/dL 01/14/24 14:39 Glucose (UA)(Auto) 0 mg/dL 01/14/24 14:39 Urine Ketones (Auto) Negative 01/14/24 14:39 Urine Blood (Auto) 25 Dayron/uL 01/14/24 14:39 Urine Nitrite (Auto) Negative 01/14/24 14:39 Urine Bilirubin (Auto) 0 mg/dL 01/14/24 14:39 Urine Urobilinogen (Auto) 3.5 mg/dL 01/14/24 14:39 Leukocyte Esterase (Auto) 70 Teena/uL 01/14/24 14:39 Date of Service: 02/27/23 EXAMINATION: Fluorine-18 FDG PET/CT Scan CLINICAL INDICATION: Initial treatment management. Left upper lobar lung cancer staging. PROCEDURE: 60 minutes following the intravenous administration of 16.3 mCi of fluorine 18 FDG, images from the base of the skull to the mid thighs were obtained using a combined PET/CT scanner with CT scan based attenuation correction. No intravenous contrast was administered. Transverse, coronal, sagittal, and volume reconstruction projections were obtained. The patient's blood glucose as determined by a finger stick, was 119 mg/dl immediately prior to injection. The radiotracer was injected intravenously through left antecubital superficial vein, without any complications. Total CT exam dose-length product 1491.05 mGy-cm * These CT images were obtained using dose optimization techniques as appropriate, variously including the following: Automated exposure control * Adjustment of mA and/or kV according to patient size (this includes techniques or standardized protocols for targeted exams where dose is matched to indication/reason for exam; i.e. extremities or head) * Use of iterative reconstruction technique COMPARISON: CT of the chest done on 02/21/2023, 01/17/[address] of the chest done on 10/27/2022. FINDINGS: NECK AND VISUALIZED HEAD: No FDG avid suspicious focal disease. THORAX: Postsurgical changes are noted at left perihilar region extending into the left posterior upper and left mid hemithoracic region. Persistent nonspecific non-FDG avid pleuroparenchymal disease is noted along the suture line, similar to prior postoperative studies done on 02/21/2023 and 01/17/2023, likely represent postsurgical evolving scar/atelectasis or combination thereof. Specifically, no evidence of any focal FDG avid disease identified on either hemithorax to suspect malignancy. No FDG avid mediastinal and/or hilar or axillary or internal mammary lymphadenopathy. Trace amount of left-sided pleural effusion, thickening or combination thereof is noted, likely represent postsurgical change as well. No FDG avid pleural or pericardial effusion. ABDOMEN AND PELVIS: No FDG avid liver, spleen or adrenal disease. The gallbladder, biliary tree, pancreas appear unremarkable. Physiologic radiotracer activities within the kidneys and the bladder. MUSCULOSKELETAL: FDG avid healing rib fractures are noted within the left lower posterolateral hemithorax, specifically involving left seventh, eighth, ninth ribs and the intercostal musculature between the ninth and 10th ribs, most consistent with postsurgical changes. Note is also made of bilateral metallic hip prosthesis. Significant muscular activity is noted within the gluteal muscles bilaterally, likely physiologic. Asymmetric increased muscular activity is also noted within the right upper neck along the paraspinal region. VASCULAR: Unremarkable. Specifically, no evidence of aneurysm or significant calcific atherosclerotic disease. SUV max OF MEDIASTINAL BLOOD POOL: 3.4 SUV max OF LIVER: 2.9 IMPRESSION: 1. Postsurgical changes are noted within the left hemithorax without any FDG avid disease to suspect residual or recurrent disease in this patient with history of recent surgical resection of left upper lobar lung cancer. Note is however made of persistent nonspecific non-FDG avid pleuroparenchymal disease seen along the course of the suture line, likely represent postsurgical evolving scar, atelectasis or combination thereof. Follow-up imaging as appropriate to ensure stability and/or resolution is recommended. 2. No FDG avid mediastinal or hilar or axillary lymphadenopathy or definite extrathoracic disease to suspect metastasis. 3. Incidental note is made of multiple adjacent FDG avid left lower posterolateral hemithoracic ribs (7-9) and adjacent intercostal muscle between the ninth and 10th ribs, most consistent with postsurgical changes. Assessment & Plan Assessment & Plan (1) Microscopic hematuria: Code(s): R31.29 - Other microscopic hematuria (2) Hematuria: Code(s): R31.9 - Hematuria, unspecified (3) Screening PSA (prostate specific antigen): Code(s): Z12.5 - Encounter for screening for malignant neoplasm of prostate Plan Renal ultrasound PSA Urine cytology, urine culture Follow-up office cystoscopy Orders: Orders Urine Cytology Today R31.29 - Other microscopic hematuria AMB Urinalysis Automated Today R33.9 - Retention of urine, unspecified US renal BI Today R31.9 - Hematuria, unspecified PSA,Total (Free>4and<10) Today Z12.5 - Encounter for screening for malignant neoplasm of prostate Patient Instructions: The patient had an opportunity to ask questions regarding treatment plan. All questions were answered. Imaging, Laboratory studies and physical exam results were discussed and reviewed in detail. No major barriers to understanding were identified. The patient expressed understanding and agreement with the above treatment plan. The patient is aware they should contact our office by phone for worsening of their current condition or the appearance of new symptoms. Compliance is encouraged with any medications and followup testing that is ordered. It is a privilege to be allowed the opportunity to participate in the urologic care of your patient. If you have any questions or concerns regarding treatment for the above conditions please do not hesitate to contact me. The office telephone contact is [phone]. This note is constructed in part using voice recognition software. While every effort has been made to ensure accuracy recruiting manager errors may have been included. Yours sincerely, Gamal Guerrero MD Coding Level of Care Code New Pt Level 4 (67619) Diagnoses Microscopic hematuria R31.29 Hematuria R31.9 Screening PSA (prostate specific antigen) Z12.5
== END 2024-01-14 15:49 | disposition home or self-care (01) ==
PROVIDERS: PCP Registered Nurse; Visit Provider Urology
DX: R31.29 Other microscopic hematuria (principal); R31.9 Hematuria, unspecified; Z12.5 Encounter for screening for malignant neoplasm of prostate; R33.9 Retention of urine, unspecified
CPT/HCPCS: 99204

== ENCOUNTER 2024-01-14 14:13 | Outpatient (REF) | payer MEDICAID, SELFPAY ==
[2024-01-15 06:34] LABS: Urine Cytology See Pathology rpt
== END 2024-01-14 14:14 | disposition home or self-care (01) ==
LOC: HO.LAB 14:13
PROVIDERS: PCP Registered Nurse; Visit Provider Urology
DX: R31.29 Other microscopic hematuria (principal); R80.9 Proteinuria, unspecified; R33.9 Retention of urine, unspecified; N39.0 Urinary tract infection, site not specified; Z12.5 Encounter for screening for malignant neoplasm of prostate
CPT/HCPCS: 81003; 87086; 88112; 99202

== ENCOUNTER 2024-02-21 14:08 | Outpatient (REF) | payer MEDICAID, SELFPAY ==
--- NOTE | ~2024-02-21 | US_ITS ---
EXAMINATION: US RETROPERITONEAL LIMITED (RENAL ONLY) CLINICAL INFORMATION: Hematuria, unspecified. COMPARISON: Ultrasound abdomen 11/17/2020 and 06/30/2020. TECHNIQUE: Real-time imaging of the kidneys. Technically limited study secondary to body habitus. FINDINGS: RIGHT KIDNEY: 10.6 x 6.5 x 5.2 cm (SAG x AP x TRV). The kidney is normal in size, contour, and echogenicity. Renal cortical thickness is normal. No calculi or focal parenchymal lesions. No hydronephrosis. LEFT KIDNEY: 12.8 x 5.2 x 5.0 cm (SAG x AP x TRV). The kidney is normal in size, contour, and echogenicity. Renal cortical thickness is normal. No calculi or focal parenchymal lesions. No hydronephrosis. US/US renal BI IMPRESSION: Normal renal ultrasound no nephrolithiasis or hydronephrosis.
== END 2024-02-21 14:09 | disposition home or self-care (01) ==
LOC: HO.US 14:08
PROVIDERS: PCP Registered Nurse; Visit Provider Urology
DX: R31.9 Hematuria, unspecified (principal)
CPT/HCPCS: 76775

== ENCOUNTER 2024-02-28 13:31 | Outpatient (AMB) | payer MEDICAID, SELFPAY ==
--- NOTE | 2024-02-28 13:36 | A.OFFVIS_ITS ---
Intake Visit Reasons: cysto/US/PSA Intake Note: Patient presents today for Ultrasound Results: Meds- None Allergies to Antibiotic- Penicillins Blood Thinner- None Change Director Required: No Accompanied by: Self / Same As Patient Allergies Penicillins [PENICILLINS] Allergy (Unknown, Verified 02/28/24 13:42) UNKNOWN HPI Comments Details: 02/28/2024--Dru was scheduled for office cystoscopy. Patient declines. I have reviewed renal ultrasound-02/21/2024-kidneys/bladder within normal limits. Discussed with him urine cytology was negative to malignant cells. Nicotine cessation discussed. Nephrology referral for proteinuria. Patient to get PSA labs done. Review of chart: 01/14/2024--Dru is a 58-year-old male who is here for evaluation for microscopic hematuria and proteinuria. He states that he when he urinates he sees suds. He denies dysuria. The patient is followed by Oncology for lung cancer. Status post lobectomy, December 2022. The patient had a PET CT last year which I have reviewed, urinary tract was within normal limits. Discussed re-evaluation of kidneys with renal ultrasound. Will send urine for c ytology and surveillance urine culture. Follow-up office cystoscopy, PSA prior. 02/28/2024--Nicotine cessation discussed. Nephrology referral for proteinuria. Patient to get PSA labs done. Follow-up in 6 months [facility] Medical History Pulmonary emboli Osteoarthritis Pleuritic chest pain Post-thoracotomy pain syndrome Asthma-COPD overlap syndrome Lung cancer (~2022) Nicotine dependence, cigarettes, uncomplicated Depression with anxiety Obesity DA (obstructive sleep apnea) Hepatitis C HLD (hyperlipidemia) Methadone maintenance therapy patient History of CVA (cerebrovascular accident) (~2008) Surgical History Hx of appendectomy History of lung surgery History of bilateral hip replacements History of carpal tunnel surgery History of left inguinal hernia repair History of esophagogastroduodenoscopy (EGD) History of colonoscopy Family History Father No problems noted. Mother Family history of high blood pressure Hx of diabetes insipidus Social History Household Members: None Housing: Apartment Do you presently have visiting nurse or other home services: Yes Alcohol intake: former Patient Tobacco Use Status: Current everyday Tobacco user Tobacco use type: Cigarette Years Smoked: (onset 13yo, 1ppd x 44yrs, now 3/4ppd, 40pyh) e-Cigarette/Vaping Use: Currently Using [employer] service: No Current occupational status: disabled Review of Systems Const All systems reviewed & are unremarkable except as noted in HPI and below Reports no additional complaints Eyes Reports no additional complaints ENT Reports no additional complaints Card Reports no additional complaints Resp Reports no additional complaints GI Reports no additional complaints Reports as per HPI Musc Reports no additional complaints Skin/Breast Reports system reviewed and no additional complaints, except as documented Neuro Reports no additional complaints Psych Reports no additional complaints Endo Reports no additional complaints Darin/Lymph Reports no additional complaints Aller/Immun Reports no additional complaints Results AMB Urinalysis, Automated UA Leukoctes 125 Teena/uL Last Edit by CECILIA Mejia on 02/28/24 13:44 2+ Jose Francisco Nunez 02/28/24 13:44 UA Nitrite Negative Last Edit by CECILIA Mejia on 02/28/24 13:44 UA Urobilinogen 0.2 mg/dL Last Edit by CECILIA Mejia on 02/28/24 13:4 4 UA Protein 100 mg/dL Last Edit by CECILIA Mejia on 02/28/24 13:44 2+ Jose Francisco Nunez 02/28/24 13:44 UA pH 5.0 Last Edit by CECILIA Mejia on 02/28/24 13:44 UA Blood 0 Dayron/uL Last Edit by CECILIA Mejia on 02/28/24 13:44 UA Specific [place] 1.015 Last Edit by CECILIA Mejia on 02/28/24 13: 44 UA Ketone Positive Last Edit by CECILIA Mejia on 02/28/24 13:44 5 mg/dL Jose Francisco Nunez 02/28/24 13:44 UA Bilirubin 0 mg/dL Last Edit by CECILIA Mejia on 02/28/24 13:44 UA Glucose 0 mg/dL Last Edit by CECILIA Mejia on 02/28/24 13:44 Results Reviewed Results Reviewed: Laboratory Last Values Urine pH (Auto) 5.0 02/28/24 13:42 Specific [place] (Auto) 1.015 02/28/24 13:42 Urine Protein (Auto) 100 mg/dL 02/28/24 13:42 Glucose (UA)(Auto) 0 mg/dL 02/28/24 13:42 Urine Ketones (Auto) Positive 02/28/24 13:42 Urine Blood (Auto) 0 Dayron/uL 02/28/24 13:42 Urine Nitrite (Auto) Negative 02/28/24 13:42 Urine Bilirubin (Auto) 0 mg/dL 02/28/24 13:42 Urine Urobilinogen (Auto) 0.2 mg/dL 02/28/24 13:42 Leukocyte Esterase (Auto) 125 Teena/uL 02/28/24 13:42 Date of Service: 02/21/24 EXAMINATION: US RETROPERITONEAL LIMITED (RENAL ONLY) CLINICAL INFORMATION: Hematuria, unspecified. COMPARISON: Ultrasound abdomen 11/17/2020 and 06/30/2020. TECHNIQUE: Real-time imaging of the kidneys. Technically limited study secondary to body habitus. FINDINGS: RIGHT KIDNEY: 10.6 x 6.5 x 5.2 cm (SAG x AP x TRV). The kidney is normal in size, contour, and echogenicity. Renal cortical thickness is normal. No calculi or focal parenchymal lesions. No hydronephrosis. LEFT KIDNEY: 12.8 x 5.2 x 5.0 cm (SAG x AP x TRV). The kidney is normal in size, contour, and echogenicity. Renal cortical thickness is normal. No calculi or focal parenchymal lesions. No hydronephrosis. IMPRESSION: Normal renal ultrasound no nephrolithiasis or hydronephrosis. Collected: 01/14/24 Location: [facility] Received: 01/15/24 Diagnosis Urine: Negative for high-grade urothelial carcinoma. COMMENT: Examination of a monolayer preparation slide shows scattered benign squamous cells, occasional benign urothelial cells, many acute inflammatory cells and few red blood cells. Clinical History Microscopic hematuria Material Received Urine Gross Description Received are 8 cc of cloudy yellow fluid from which a ThinPrep slide is prepared. Assessment & Plan Assessment & Plan (1) Hematuria: Code(s): R31.9 - Hematuria, unspecified Category: Medical (2) Screening PSA (prostate specific antigen): Code(s): Z12.5 - Encounter for screening for malignant neoplasm of prostate Category: Medical (3) Proteinuria: Code(s): R80.9 - Proteinuria, unspecified Category: Medical Plan Nicotine cessation discussed. Nephrology referral for proteinuria. Patient to get PSA labs done. Follow-up in 6 months Orders: Orders AMB Urinalysis Automated Today Z13.9 - Encounter for screening, unspecified Referrals Nephrology Referral R80.9 - Proteinuria, unspecified Patient Instructions: The patient had an opportunity to ask questions regarding treatment plan. The patient expressed understanding and agreement with the above treatment plan. The patient is aware they should contact our office by phone for worsening of their current condition or the appearance of new symptoms. Compliance is encouraged with any medications and followup testing that is ordered. It is a privilege to be allowed the opportunity to participate in the urologic care of your patient. If you have any questions or concerns regarding treatment for the above conditions please do not hesitate to contact me. The office telephone contact is [phone]. This note is constructed in part using voice recognition software. While every effort has been made to ensure accuracy car rental agent errors may have been included. Yours sincerely, Gamal Guerrero MD Coding Level of Care Code Est Pt Level 4 (55279) Diagnoses Hematuria R31.9 Screening PSA (prostate specific antigen) Z12.5 Proteinuria R80.9
== END 2024-02-28 13:54 | disposition home or self-care (01) ==
PROVIDERS: PCP Registered Nurse; Referring Provider Registered Nurse; Visit Provider Urology
DX: R31.9 Hematuria, unspecified (principal); Z12.5 Encounter for screening for malignant neoplasm of prostate; R80.9 Proteinuria, unspecified; Z13.9 Encounter for screening, unspecified
CPT/HCPCS: 99214

== ENCOUNTER → 2024-02-28 13:31 | Outpatient (BNVA) | payer MEDICAID, SELFPAY | PROVIDERS: PCP Registered Nurse; Visit Provider Urology | DX: Z12.5 Encounter for screening for malignant neoplasm of prostate (principal); R31.9 Hematuria, unspecified; R80.9 Proteinuria, unspecified | CPT/HCPCS: 81003; 99212 ==

== ENCOUNTER 2024-03-26 15:21 | Outpatient (AMB) | payer MEDICAID, SELFPAY ==
--- NOTE | 2024-03-26 15:22 | HO.NEPHOV ---
Vital Signs 03/26/24 15:23 Height 5 ft 8 in Weight 300 lb BMI 45.6 Blood Pressure Location Lt brachial Position Sitting Pulse 76 Pulse Source Pulse Oximeter Pulse Oximetry (%) 97 Oxygen Delivery Method Room Air Intake Visit Reasons: Proteinuria/ Confirmed Fence Making Machine Operator Required: No Accompanied by: Self / Same As Patient Allergies Penicillins [PENICILLINS] Allergy (Unknown, Verified 03/26/24 15:24) UNKNOWN HPI Comments Details: Dru is a pleasant 59-year-old man with a history of obesity. He was found to have proteinuria. He was seen by urologist for microhematuria. He refused to have cystoscopy. Imaging studies have been unremarkable. Urine cytology has been negative. 01/09/2023-navigational bronchoscopy with biopsy, de Renuka left upper lobe wedge with completion segmentectomy, mediastinal lymphadenectomy?. He underwent left upper lobe which resection/segmentectomy on 01/09/2023 at [facility]. Pathology revealed invasive adenocarcinoma, tumor size 2 x 1.5 x 1.1 cm, spread through air spaces identified, visceral pleural invasion not identified, margins negative. No regional lymph nodes identified. Pathological stage pT2a pNX. IHC revealed TTF1 positive, P 40 negative. NGS testing revealed PDL1 , TPS 4%, KRAS Exon 2 detected(p.G12R), ALK rearrangement not detected, BRAF mutation not detected, EGFR mutation not detected ROS1 negative. Positive for hepatitis-B core antibody. History of remote infection. He was made referral to GI, he no showed his appointment twice. PET scan performed 02/27/2023 showed postsurgical changes the left hemithorax without any FDG avid disease. No evidence of residual disease or metastatic disease. Patient presented at tumor Board (), as per discussion at tumor board, he has been recommended adjuvant chemotherapy since he has had inadequate surgery and staging of his lung cancer. He received 4 cycles of cis-kasaan/pemetrexed which he completed on 06/11/2023. Pulmonary emboli, CTA 02/21/23 showed small filling defects in branches of right pulmonary artery no large embolus. He was on anticoagulation until December 2023 for postoperative pulmonary embolism. He continues to smoke cigarettes up to 5 a day. In the past he has smoked a pack and a half. He has obesity with a BMI of 45.6 Semaglutide was started at the end of 03/10/2024 [facility] Medical History Pulmonary emboli Osteoarthritis Pleuritic chest pain Post-thoracotomy pain syndrome Asthma-COPD overlap syndrome Lung cancer (~2022) Nicotine dependence, cigarettes, uncomplicated Depression with anxiety Obesity DA (obstructive sleep apnea) Hepatitis C HLD (hyperlipidemia) Methadone maintenance therapy patient History of CVA (cerebrovascular accident) (~2008) Surgical History Hx of appendectomy History of lung surgery History of bilateral hip replacements History of carpal tunnel surgery History of left inguinal hernia repair History of esophagogastroduodenoscopy (EGD) History of colonoscopy Family History Father No problems noted. Mother Family history of high blood pressure Hx of diabetes insipidus Social History Household Members: None Housing: Apartment Do you presently have visiting nurse or other home services: Yes Alcohol intake: former Patient Tobacco Use Status: Current everyday Tobacco user Tobacco use type: Cigarette Years Smoked: (onset 13yo, 1ppd x 44yrs, now 3/4ppd, 40pyh) e-Cigarette/Vaping Use: Currently Using service: No Current occupational status: disabled Review of Systems Const Denies fever(s) and Denies weight loss Card Denies chest pain Resp Denies cough and Denies hemoptysis GI Denies abdominal pain, Denies diarrhea and Denies nausea Musc Denies back pain Neuro Denies focal weakness Physical Exam Vital Signs: Last Vital Signs Pulse 76 03/26/24 15:23 Pulse Ox 97 03/26/24 15:23 Oxygen Delivery Method Room Air 03/26/24 15:23 BMI result Body Mass Index 45.6 Const General: comfortable Nutritional Appearance: well nourished and obese Orientation/consciousness: patient oriented x3 HEENT Head: No normal to inspection Mouth: moist mucous membranes Neck Neck: Yes supple and Yes no JVD Resp Auscultation: clear to auscultation bilaterally and no rales Cardio Jugular venous distension: no JVD Palpation: no palpable S3 and no palpable S4 Heart sounds: no rubs GI Palpation (GI): Soft to palpation and nontender Percussion: No Fluid wave present General: Yes no CVA tenderness Back/Spine/Pelvis Back: no CVA tenderness Skin General skin exam: no rashes or lesions noted Neuro General: patient oriented x3 Extrem General: Yes no pedal edema and No clubbing Results Reviewed Nephrology Results: Hgb 12.5 g/dl (14.0-18.0) L 03/21/24 WBC 7.2 X10*3/uL (4.8-10.8) 03/21/24 Plt Count 225 X10*3/uL (160-400) 03/21/24 Sodium 139 mmol/L (135-145) 03/21/24 Potassium 4.0 mmol/L (3.3-5.1) 03/21/24 Chloride 101 mmol/L (96-108) 03/21/24 Carbon Dioxide 31 mmol/L (22-29) H 03/21/24 BUN 16 mg/dL (9-16) 03/21/24 Creatinine 1.12 mg/dL (0.5-1.4) 03/21/24 Calcium 10.2 mg/dL (8.4-10.2) 03/21/24 Urine Protein 30 (1+) mg/dL (Neg-Trace) H 09/03/23 Renal US 02/21/24 Assessment & Plan Assessment & Plan (1) Proteinuria: Code(s): R80.9 - Proteinuria, unspecified Category: Medical Plan . Dru is a 59-year-old man with a history of obesity and lung cancer. Status post chemotherapy. He was found to have dipstick positive proteinuria and is here for further evaluation. Proteinuria is most likely due to obesity. No significant RBCs in the past. She will recheck today. Glomerulonephritis or interstitial disease seem unlikely at this time. First step is to quantify the proteinuria. I have ordered the workup for proteinuria. I would I discussed importance of weight loss. He is currently and semaglutide which should help with weight loss. I encouraged him to cut back on the calorie intake and increase his physical activity as well. Based on the proteinuria I would consider adding an GUICHO inhibitor. Further workup will be based on the outcome of the baseline investigations as outlined. He has mild CKD. in 2020, baseline creatinine was around 0.6 to 0.7 mg/dL. For the last 1 year serum creatinine has been staying around 1.1-1.3 mg/dL. This is probably his new baseline after completion of chemotherapy with kasaan-based chemotherapy. For now we will continue to monitor renal function closely and avoid nephrotoxic agents. He returned to the office in the next few weeks. Orders: Orders UA and rflx microscopic Today R80.9 - Proteinuria, unspecified Creatinine Urine Today R80.9 - Proteinuria, unspecified Total Protein Urine Random Today R80.9 - Proteinuria, unspecified Coding Level of Care Code New Pt Level 4 (87675) Diagnoses Proteinuria R80.9
[2024-03-26 15:23] VITALS: PULSE 76; O2SAT 97; BMI 45.6
--- OUTSIDE RECORDS SUMMARY | 2024-03-28 10:36 | XMS_ITS | Continuity of Care Document ---
Author Organization [facility] Address [address] [place] [address]- Care Team Providers Care Certified Hyperbaric Technician Name Role Phone Randee García MD Primary Care Physician [phone] [place] [facility] [place] 06/08/23 [facility] [address] [place] [address]- [place] Allergies, Adverse Reactions, Alerts Substance Reaction Severity Status penicillins Active Topical Skin Adhesive Active Immunizations Given and Recorded Vaccine Date Status Refusal Reason tetanus/diphtheria/pertussis, acel(Tdap) 03/12/15 Given Medications Acetaminophen = 1,000 mg, By Mouth, 3 times a day, PRN Pain , Mild, 0 Refills, Maintenance, 11/21/19 19:23:00 EST Start Date: 11/21/19 Status: Ordered chantix chantix, Refills 0, Maintenance, [...] drug. Start Date: 04/03/23 Status: Ordered gabapentin 600 mg oral tablet [...] opioid drug. Start Date: 02/15/21 Status: Ordered ProAir HFA 90 mcg/inh inhalation [...] capsule, 1 Refills, Maintenance, 04/03/23 9:37:00 EDT, [facility], Partial fill upon patient request if the prescription is for a schedule IIopioid drug., 173, cm, 04/03/23 7:33:00 EDT, Height... Start Date: 04/03/23 Status: Ordered Symbicort 160mcg/4.5mcg Inhaler 2, puffs, Inhalation, 2 times a day, # 10.2 Gm, Refills 1, Tot. Refills 1, Maintenance, 04/03/23 9:37:00 EDT, Aerosol, Route to Pharmacy Electronically, [id number], [facility], 173, cm, 04/03/23 7:33:00 EDT, Hei... [...] Depression Confirmed Active 1in remission 2in remission Social History Social History Type Response Smoking Status Current every day sm oker; Type: Cigarettes; Type: Oral entered on: 06/30/15 Sex Patient Care team information Care Team Personnel Name: Dominique White RN Position: S RN Member Role: Primary Care Nurse Name: Randee García MD Position: S Outreach Member Role: PCP Address: Address: [address] [place] [address] Name: Shilo Bose RN Position: S RN Member Role: Primary Care Nurse Name: Blanca Vanessa RN Position: S RN Member Role: Primary Care Nurse Care Team Related Persons Name: PARK VILCHIS Address: home [address] [place] [address] Name: PARK VILCHIS COUSIN Address: home [address] [place] [address]
--- OUTSIDE RECORDS SUMMARY | 2024-03-28 10:36 | XMS_ITS | Continuity of Care Document ---
Author Organization [facility] Address [address] [place] [address]- Care Team Providers Care Auto Transmission Specialist Name Role Phone Randee García MD Primary Care Physician [phone] [id number] - 09/23/[address] [address] Attending Physician: Gabrielle Dash Admitting Physician: AdmGabrielle king Referring Physician: Admtr, Ar8 Allergies, Adverse Reactions, Alerts Substance Reaction Severity [...] Supply Start Date: 03/15/21 Status: Ordered dexamethasone 4 mg oral tablet [...] opioid drug. Start Date: 04/03/23 Status: Ordered Eliquis 5 mg oral tablet 1 tablet = 5 mg, By Mouth, 2 times a day, # 60 tablet, 5 Refills, Maintenance, 08/24/23 8:30:00 EDT, Tablet, Partial fill upon patient request if the prescription is for a schedule II opioid drug. Start Date: 08/24/23 Status: Ordered gabapentin 600 mg oral tablet = 600 mg, 3 times a day, 0 Refills, Maintenance, 11/21/19 19:22:00 EST Start Date: 11/21/19 Status: Ordered methadone 10 mg oral tablet [...] capsule, 1 Refills, Maintenance, 04/03/23 9:37:00 EDT, [facility], Partial fill upon patient request if the prescription is for a schedule IIopioid drug., 173, cm, 04/03/23 7:33:00 EDT, Height... Start Date: 04/03/23 Status: Ordered Symbicort 160mcg/4.5mcg Inhaler 2, puffs, Inhalation, 2 times a day, # 10.2 Gm, Refills 1, Tot. Refills 1, Maintenance, 04/03/23 9:37:00 EDT, Aerosol, Route to Pharmacy Electronically, [id number], [facility], 173, cm, 04/03/23 7:33:00 EDT, Hei... [...] Care Nurse Name: Randee García MD Position: [facility] Outreach Member Role: PCP Address: Address: [address] [place] [address] Name: Lidya NINA, Shilo Frankel Position: S RN Member Role: Primary Care Nurse Name: Blanca Vanessa RN Position: S RN Member Role: Primary Care Nurse Care Team Related Persons Name: PARK VILCHIS Address: home [address] [place] [address] Name: PARK VILCHIS COUSIN Address: home [address] [place] [address]
--- OUTSIDE RECORDS SUMMARY | 2024-03-28 10:36 | XMS_ITS | Continuity of Care Document ---
Author Organization [facility] Address [address] [place] [address]- Care Team Providers Care Seat Scooper Machine Name Role Phone Ricky OLIVER, Randee Primary Care Physician [place] [facility] [place]23 [place] 01/10/24 [facility] [address] [place], [place] [address] Attending Physician: Kvng OLIVER, Chi Aiken Referring Physician: Franklyn Eagle MD Allergies, Adverse Reactions, Alerts Substance Reaction Severity Status penicillins Active Topical Skin Adhesive Active Immunizations Given and Recorded Vaccine Date Status Refusal Reason tetanus/diphtheria/pertussis, acel(Tdap) 03/12/15 Given Medications Acetaminophen = 1,000 mg, By Mouth, 3 times a day, PRN Pain , Mild, 0 Refills, Maintenance, 11/21/19 19:23:00 EST Start Date: 11/21/19 Status: Ordered Breo Ellipta See Instructions, 2 puffs Inhalation Daily, 0 Refills, Maintenance, 01/07/24 10:12:00 EDT, Partial fill upon patient request if the prescription is for a schedule II opioid drug. Start Date: 01/07/24 Status: Ordered chantix chantix, Refills 0, Maintenance, 03/15/21 13:31:00 EDT, Supply Start Date: 03/15/21 Status: Ordered Cymbalta 60 mg oral enteric coated capsule 1 capsule = 60 mg, By Mouth, Daily, # 30 capsule, 0 Refills, Maintenance, 01/07/24 10:10:00 EDT, ECC[facility], Partial fill upon patient request if the prescription is for a schedule II opioid drug. Start Date: 01/07/24 Status: Ordered Eliquis 5 mg oral tablet 1 tablet = 5 mg, By Mouth, 2 times a day, # 60 tablet, 5 Refills, Maintenance, 11/03/23 8:30:00 EDT, Tablet, Partial fill upon patient request if the prescription is for a schedule II opioid drug. Start Date: 08/24/23 Status: Ordered gabapentin 600 mg oral tablet = 600 mg, 3 times a day, 0 Refills, Maintenance, 11/21/19 19:22:00 EST Start Date: 11/21/19 Status: Ordered Linzess See Instructions, once a day, By Mouth Daily, does not know dosage, 0 Refills, Maintenance, 01/07/24 10:11:00 EDT, Partial fill upon patient request if the prescription is for a schedule II opioid drug. Start Date: 01/07/24 Status: Ordered methadone 10 mg oral tablet [...] capsule, 1 Refills, Maintenance, 04/03/23 9:37:00 EDT, [facility], Partial fill upon patient request if the prescription is for a schedule IIopioid drug., 173, cm, 04/03/23 7:33:00 EDT, Height... Start Date: 04/03/23 Status: Ordered Symbicort 160mcg/4.5mcg Inhaler 2, puffs, Inhalation, 2 times a day, # 10.2 Gm, Refills 1, Tot. Refills 1, Maintenance, 04/03/23 9:37:00 EDT, Aerosol, Route to Pharmacy Electronically, [id number], [facility], 173, cm, 04/03/23 7:33:00 EDT, Hei... 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 Cholelithiasis Confirmed Active Borderline personality disorder Confirmed Active Cervical spine degeneration Confirmed Active COPD (chronic obstructive pulmonary disease) Confirmed Active Cocaine abuse 1 Confirmed Active DDD (degenerative disc disease), lumbar Confirmed Active History of arm fracture, right Confirmed Active Heroin dependence 2 Confirmed Active Hx of appendectomy Confirmed Active History of total right hip replacement Confirmed Active Nicotine dependence, uncomplicated Confirmed Active PTSD (post-traumatic stress disorder) Confirmed Active Pulmonary emboli-bilateral February 2023 Confirmed Active Severe obesity Confirmed Active Depression Confirmed Active DA, central apnea, hypoxia Confirmed Active Hepatitis C 3 Confirmed Active 1in remission 2in remission 3Treated 2019 Social History Social History Type Response Smoking Status Current every day sm oker; Type: Cigarettes; Type: Oral entered on: 06/30/15 Sex Patient Care team information Care Team Personnel Name: Dominique White RN Position: S RN Member Role: Primary Care Nurse Name: Randee García MD Position: S Outreach Member Role: PCP Address: Address: [address] [place] [address]- Name: Shilo Bose RN Position: S RN Member Role: Primary Care Nurse Name: Blanca Vanessa RN Position: S RN Member Role: Primary Care Nurse Care Team Related Persons Name: PARK VILCHIS Address: [address] [place] [address] Name: PARK VILCHIS COUSIN Address: [address] [place] [address]
--- OUTSIDE RECORDS SUMMARY | 2024-03-28 10:36 | XMS_ITS | Continuity of Care Document ---
Author Organization [facility] Address [address] [place] [address]- Care Team Providers Care Web Interface Developer Name Role Phone Randee García MD Primary Care Physician [phone] En[place] [facility] [place] Date(s): 06/19/23 - 07/19/23 [facility] [address] [place] [address]- Attending Physician: Gabrielle Dash Admitting Physician: Gabrielle Dash Referring Physician: AdmtrGabrielle Allergies, Adverse Reactions, Alerts Substance Reaction Severity [...] capsule, 1 Refills, Maintenance, 04/03/23 9:37:00 EDT, [facility], Partial fill upon patient request if the prescription is for a schedule IIopioid drug., 173, cm, 04/03/23 7:33:00 EDT, Height... Start Date: 04/03/23 Status: Ordered Symbicort 160mcg/4.5mcg Inhaler 2, puffs, Inhalation, 2 times a day, # 10.2 Gm, Refills 1, Tot. Refills 1, Maintenance, 04/03/23 9:37:00 EDT, Aerosol, Route to Pharmacy Electronically, [id number], [facility], 173, cm, 04/03/23 7:33:00 EDT, Hei... [...] Response Smoking Status Current every day sm [place]; Type: Cigarettes; Type: Oral entered on: 06/30/15 Sex Patient Care team information Care Team Personnel Name: Dominique White RN Position: S RN Member Role: Primary Care Nurse Name: Randee García MD Position: [facility] Outreach Member Role: PCP Address: Address: [address] [place] [address] Name: Shilo Bose RN Position: S RN Member Role: Primary Care Nurse Name: Blanca Vanessa RN Position: S RN Member Role: Primary Care Nurse Care Team Related Persons Name: PARK VILCHIS Address: [address] [place] [address] Name: PARK VILCHIS COUSIN Address: [address] [place] [address]
--- OUTSIDE RECORDS SUMMARY | 2024-03-28 10:37 | XMS_ITS | Continuity of Care Document ---
Author Organization [facility] Address [address] [place] [address]- Care Team Providers Care Logistic Specialist Name Role Phone Ricky OLIVER, Randee Primary Care Physician [place] [facility] [place](s): 11/08/23 - 12/27/[address] [address] Attending Physician: Franklyn Eagle MD Admitting Physician: Franklyn Eagle MD Referring Physician: Franklyn Eagle MD Allergies, Adverse [...] capsule, 1 Refills, Maintenance, 04/03/23 9:37:00 EDT, [facility], Partial fill upon patient request if the prescription is for a schedule IIopioid drug., 173, cm, 04/03/23 7:33:00 EDT, Height... Start Date: 04/03/23 Status: Ordered Symbicort 160mcg/4.5mcg Inhaler 2, puffs, Inhalation, 2 times a day, # 10.2 Gm, Refills 1, Tot. Refills 1, Maintenance, 04/03/23 9:37:00 EDT, Aerosol, Route to Pharmacy Electronically, [id number], [facility], 173, cm, 04/03/23 [...] Response Smoking Status Current every day sm shaniaer; Type: Cigarettes; Type: Oral entered on: 06/30/15 Sex Patient Care team information Care Team Personnel Name: Dominique White RN Position: S RN Member Role: Primary Care Nurse Name: Randee García MD Position: [facility] Outreach Member Role: PCP Address: Address: [address] [place] [address]- Name: Shilo Bose RN Position: S RN Member Role: Primary Care Nurse Name: Blanca Vanessa RN Position: S RN Member Role: Primary Care Nurse Care Team Related Persons Name: PARK VILCHIS Address: [address] [place] [address] Name: PARK VILCHIS COUSIN Address: home [address] [place] [address]
--- OUTSIDE RECORDS SUMMARY | 2024-03-28 10:37 | XMS_ITS | Continuity of Care Document ---
Author Organization [facility] Address [address] [place] [address]- Care Team Providers Care Regional Economic Liaison Name Role Phone Ricky OLIVER, Randee Primary Care Physician [place] [facility] [place] 11/08/23 - 12/27/23 [facility] [address] [place], [place] [address] Attending Physician: Hakeem Angel DO Referring Physician: Franklyn Eagle MD Allergies, Adverse [...] capsule, 1 Refills, Maintenance, 04/03/23 9:37:00 EDT, [facility], Partial fill upon patient request if the prescription is for a schedule IIopioid drug., 173, cm, 04/03/23 7:33:00 EDT, Height... Start Date: 04/03/23 Status: Ordered Symbicort 160mcg/4.5mcg Inhaler 2, puffs, Inhalation, 2 times a day, # 10.2 Gm, Refills 1, Tot. Refills 1, Maintenance, 04/03/23 9:37:00 EDT, Aerosol, Route to Pharmacy Electronically, [id number], [facility], 173, cm, 04/03/23 7:33:00 EDT, Hei... [...] Active 1in remission 2in remission 3Treated 2019 Procedures Procedure Date Related Diagnosis Body Site Status Appendectomy Completed Hip replacement-right Com pleted Inguinal herniorrhaphy-left 2016 Completed Lobectomy of upper lobe of left lung 1 Completed Tonsillectomy Completed 1Possible segmentectomy-2012 for adenocarcinoma Social History Social History Type Response Smoking Status Current every day sm oker; Type: Cigarettes; Type: Oral entered on: 06/30/15 Sex Patient Care team information Care Team Personnel Name: Dominique White RN Position: S RN Member Role: Primary Care Nurse Name: Randee García MD Position: [facility] Outreach Member Role: PCP Address: Address: [address] [place] [address]- Name: Lidya NINA, Shilo Frankel Position: S RN Member Role: Primary Care Nurse Name: Blanca Vanessa RN Position: S RN Member Role: Primary Care Nurse Care Team Related Persons Name: PARK VILCHIS Address: [address] [place] [address] Name: PARK VILCHIS COUSIN Address: [address] [place] [address]
--- OUTSIDE RECORDS SUMMARY | 2024-03-28 10:37 | XMS_ITS | Continuity of Care Document ---
Author Organization [facility] Address [address] [place] [address]- Care Team Providers Care Position Classification Manager Name Role Phone Ricky OLIVER, Randee Primary Care Physician [place] [facility] [place] 12/11/23 - 01/10/24 [facility] [address] [place], [place] [address] Attending Physician: Gabrielle Dash Admitting Physician: AdmGabrielle king Referring Physician: AdmtrGabrielle Allergies, Adverse Reactions, Alerts [...] capsule, 1 Refills, Maintenance, 04/03/23 9:37:00 EDT, [facility] 3, Partial fill upon patient request if the prescription is for a schedule IIopioid drug., 173, cm, 04/03/23 7:33:00 EDT, Height... Start Date: 04/03/23 Status: Ordered Symbicort 160mcg/4.5mcg Inhaler 2, puffs, Inhalation, 2 times a day, # 10.2 Gm, Refills 1, Tot. Refills 1, Maintenance, 04/03/23 9:37:00 EDT, Aerosol, Route to Pharmacy Electronically, [id number], [facility] 3, 173, cm, 04/03/23 7:33:00 EDT, Hei... [...] S Outreach Member Role: PCP Address: Address: [address] [place] [address]- Name: Shilo Bose RN Position: S RN Member Role: Primary Care Nurse Name: Blanca Vanessa RN Position: S RN Member Role: Primary Care Nurse Care Team Related Persons Name: PARK VILCHIS Address: [address] [place] [address] Name: PARK VILCHIS COUSIN Address: [address] [place] [address]
--- OUTSIDE RECORDS SUMMARY | 2024-03-28 10:37 | XMS_ITS | Continuity of Care Document ---
Author Organization [facility] ter Address [address] [place] [address]- Care Team Providers Care Cnc Field Service Engineer Name Role Phone Ricky OLIVER, Randee Primary Care Physician [place] [facility] [place]/08/23 - 01/09/[address] [address]- Attending Physician: Franklyn Eagle MD Admitting Physician: Franklyn Eagle MD Allergies, Adverse Reactions, [...] capsule, 1 Refills, Maintenance, 04/03/23 9:37:00 EDT, [facility] 3, Partial fill upon patient request if the prescription is for a schedule IIopioid drug., 173, cm, 04/03/23 7:33:00 EDT, Height... Start Date: 04/03/23 Status: Ordered Symbicort 160mcg/4.5mcg Inhaler 2, puffs, Inhalation, 2 times a day, # 10.2 Gm, Refills 1, Tot. Refills 1, Maintenance, 04/03/23 9:37:00 EDT, Aerosol, Route to Pharmacy Electronically, [id number], [facility] 3, 173, cm, 04/03/23 7:33:00 EDT, Hei... [...] S Outreach Member Role: PCP Address: Address: [address] [place] [address]- Name: Shilo Bose RN Position: S RN Member Role: Primary Care Nurse Name: Blanca Vanessa RN Position: S RN Member Role: Primary Care Nurse Care Team Related Persons Name: PARK VILCHIS Address: home [address] [place] [address] Name: PARK VILCHIS COUSIN Address: home [address] [place] [address]
--- OUTSIDE RECORDS SUMMARY | 2024-03-28 10:37 | XMS_ITS | Continuity of Care Document ---
Author Organization [facility] Address [address] [place] [address]- Care Team Providers Care Fuel Management Handler Name Role Phone Randee García MD Primary Care Physician [phone] [place] [facility] [place]07/24 - 02/06/24 [facility] [address] [place] [id number] Attending Physician: Gabrielle Dash Admitting Physician: Gabrielle Dash Referring Physician: Gabrielle Dash Allergies, Adverse Reactions, Alerts Substance Reaction Severity [...] capsule, 1 Refills, Maintenance, 04/03/23 9:37:00 EDT, [facility] 3, Partial fill upon patient request if the prescription is for a schedule IIopioid drug., 173, cm, 04/03/23 7:33:00 EDT, Height... Start Date: 04/03/23 Status: Ordered Symbicort 160mcg/4.5mcg Inhaler 2, puffs, Inhalation, 2 times a day, # 10.2 Gm, Refills 1, Tot. Refills 1, Maintenance, 04/03/23 9:37:00 EDT, Aerosol, Route to Pharmacy Electronically, [id number], [facility] 3, 173, cm, 04/03/23 7:33:00 EDT, [...] S Outreach Member Role: PCP Address: Address: [address] [place] [address]- Name: Shilo Bose RN Position: S RN Member Role: Primary Care Nurse Name: Blanca Vanessa RN Position: S RN Member Role: Primary Care Nurse Care Team Related Persons Name: PARK VILCHIS Address: home [address] [place] [address] Name: PARK VILCHIS COUSIN Address: home [address] [facility] [place] [place] [address]
--- OUTSIDE RECORDS SUMMARY | 2024-03-28 10:37 | XMS_ITS | Continuity of Care Document ---
Author Organization [facility] ter Address [address] [place] [address]- Care Team Providers Care On Air Personality Name Role Phone Ricky OLIVER, Randee Primary Care Physician Encounter [facility] [place] Date(s): 11/28/23 - 01/10/[address] [address] Attending Physician: Not on Staff, Attending MD Referring Physician: Franklyn Eagle MD Allergies, [...] capsule, 1 Refills, Maintenance, 04/03/23 9:37:00 EDT, [facility] 3, Partial fill upon patient request if the prescription is for a schedule IIopioid drug., 173, cm, 04/03/23 7:33:00 EDT, Height... Start Date: 04/03/23 Status: Ordered Symbicort 160mcg/4.5mcg Inhaler 2, puffs, Inhalation, 2 times a day, # 10.2 Gm, Refills 1, Tot. Refills 1, Maintenance, 04/03/23 9:37:00 EDT, Aerosol, Route to Pharmacy Electronically, [id number], [facility] 3, 173, cm, 04/03/23 7:33:00 EDT, Hei... [...] S Outreach Member Role: PCP Address: Address: [address] [place] [address]- Name: Shilo Bose RN Position: S RN Member Role: Primary Care Nurse Name: Blanca Vanessa RN Position: S RN Member Role: Primary Care Nurse Care Team Related Persons Name: PARK VILCHIS Address: home [address] [place] [address] Name: PARK VILCHIS COUSIN Address: home [address] [place] [address]
--- OUTSIDE RECORDS SUMMARY | 2024-03-28 10:37 | XMS_ITS | Continuity of Care Document ---
Author Organization [facility] ter Address [address] [place] [address]- Care Team Providers Care Fishing Rod Trimmer Name Role Phone Ricky OLIVER, Randee Primary Care Physician [phone] [place] [facility] [place](s[place] 12/11/23 - 01/10/[address] [address] Attending Physician: Gabrielle Dash Admitting Physician: AdmtrGabrielle Referring Physician: AdmtrGabrielle Allergies, Adverse Reactions, Alerts [...] capsule, 1 Refills, Maintenance, 04/03/23 9:37:00 EDT, [facility] 3, Partial fill upon patient request if the prescription is for a schedule IIopioid drug., 173, cm, 04/03/23 7:33:00 EDT, Height... Start Date: 04/03/23 Status: Ordered Symbicort 160mcg/4.5mcg Inhaler 2, puffs, Inhalation, 2 times a day, # 10.2 Gm, Refills 1, Tot. Refills 1, Maintenance, 04/03/23 9:37:00 EDT, Aerosol, Route to Pharmacy Electronically, [id number], [facility] 3, 173, cm, 04/03/23 7:33:00 EDT, [...] Outreach Member Role: PCP Address: Address: [address] [place] [address]- Name: Shilo Bose RN Position: S RN Member Role: Primary Care Nurse Name: Blanca Vanessa RN Position: S RN Member Role: Primary Care Nurse Care Team Related Persons Name: PARK VILCHIS Address: home [address] [place] [address] Name: PARK VILCHIS COUSIN Address: home [address] [place] [address]
--- OUTSIDE RECORDS SUMMARY | 2024-03-28 10:37 | XMS_ITS | Continuity of Care Document ---
Author Organization [facility] ter Address [address] [place] [address]- Care Team Providers Care Coin Wrapping Machine Operator Name Role Phone Ricky OLIVER, Randee Primary Care Physician [place] [facility] [place] [facility] [id number] Date(s): 06/12/23 - 07/18/[address] [address]- Attending Physician: Zelda Marcelo NP Admitting Physician: Davian PERSON, Zelda Cao Referring Physician: Zelda Marcelo NP Allergies, Adverse Reactions, Alerts Substance Reaction Severity [...] 1 Refills, Maintenance, 04/03/23 9:37:00 EDT, [facility] 3, Partial fill upon patient request if the prescription is for a schedule IIopioid drug., 173, cm, 04/03/23 7:33:00 EDT, Height... Start Date: 04/03/23 Status: Ordered Symbicort 160mcg/4.5mcg Inhaler 2, puffs, Inhalation, 2 times a day, # 10.2 Gm, Refills 1, Tot. Refills 1, Maintenance, 04/03/23 9:37:00 EDT, Aerosol, Route to Pharmacy Electronically, [id number], [facility] 3, 173, cm, 04/03/23 7:33:00 EDT, [...] Team Personnel Name: Dominique White RN Position: [facility] RN Member Role: Primary Care Nurse Name: Randee García MD Position: [facility] Outreach Member Role: PCP Address: Address: [address] [place] [address] Name: Shilo Bose RN Position: S RN Member Role: Primary Care Nurse Name: Blanca Vanessa RN Position: [facility] RN Member Role: Primary Care Nurse Care Team Related Persons Name: PARK VILCHIS Address: home [address] [place] [address] Name: PARK VILCHIS COUSIN Address: home [address] [place] [address]
--- OUTSIDE RECORDS SUMMARY | 2024-03-28 10:38 | XMS_ITS | Continuity of Care Document ---
Author Organization [facility] Address [address] [place] [address]- Care Team Providers Care Vacuum Form Operator Name Role Phone Ricky OLIVER, Randee Primary Care Physician [place] [facility] [place] Date(s): 05/09/23 - 07/19/23 [facility] [address] [place], [place] [id number]- Attending Physician: Davian PERSON, Zelda Cao Admitting Physician: Davian PERSON, Zelda Cao Referring [...] capsule, 1 Refills, Maintenance, 04/03/23 9:37:00 EDT, [facility] 3, Partial fill upon patient request if the prescription is for a schedule IIopioid drug., 173, cm, 04/03/23 7:33:00 EDT, Height... Start Date: 04/03/23 Status: Ordered Symbicort 160mcg/4.5mcg Inhaler 2, puffs, Inhalation, 2 times a day, # 10.2 Gm, Refills 1, Tot. Refills 1, Maintenance, 04/03/23 9:37:00 EDT, Aerosol, Route to Pharmacy Electronically, [id number], [facility], 173, cm, 04/03/23 7:33:00 EDT, Hei... [...] Team Personnel Name: Dominique White RN Position: [facility] RN Member Role: Primary Care Nurse Name: Randee García MD Position: [facility] Outreach Member Role: PCP Address: Address: [address] [place] [id number] Name: Shilo Bose RN Position: [facility] RN Member Role: Primary Care Nurse Name: Blanca Vanessa RN Position: [facility] RN Member Role: Primary Care Nurse Care Team Related Persons Name: PARK VILCHIS Address: home [address] [place] [address] Name: PARK VILCHIS COUSIN Address: home [address] [place] [address]
== END 2024-03-26 15:39 | disposition home or self-care (01) ==
LOC: HO.HKAM 15:21
PROVIDERS: PCP Registered Nurse; Referring Provider Registered Nurse; Visit Provider Internal Medicine Hypertension Specialist
DX: R80.9 Proteinuria, unspecified (principal)
CPT/HCPCS: 99204

== ENCOUNTER → 2024-03-26 15:21 | Outpatient (BNVA) | payer MEDICAID, SELFPAY | PROVIDERS: PCP Registered Nurse; Visit Provider Internal Medicine Hypertension Specialist ==

== ENCOUNTER 2024-03-26 15:49 | Outpatient (REF) | payer MEDICAID, SELFPAY ==
[2024-03-26 18:03] LABS: Appearance Urine Clear; Color Urine Yellow; Glucose Urine UA Negative (Negative); Leukocyte Esterase Urine Moderate (2+) (Negative); Nitrite Urine Negative (Negative); PH 5.5 (5.0-9.0); UMIC TRIGGER UA YES; Urine Blood Trace (Negative); Urine Ketones Negative (Negative); Urine Protein 30 (1+) mg/dL (Neg-Trace)
[2024-03-26 18:21] LABS: Bacteria Urine None Seen (None Seen); Hyaline Casts Urine 0-2 /LPF (0-2); Squamous Epithelial Cell Urine 0-2 /HPF (0-2); WBC Urine >50 /HPF (0-5)
[2024-03-26 19:37] LABS: Creatinine Urine 109.43 mg/dL; Total Protein Urine Random 50 mg/dL (<12)
== END 2024-03-26 15:50 | disposition home or self-care (01) ==
LOC: HO.HHCL 15:49
PROVIDERS: Visit Provider Internal Medicine Hypertension Specialist
DX: R80.9 Proteinuria, unspecified (principal); R31.29 Other microscopic hematuria; E66.9 Obesity, unspecified
CPT/HCPCS: 81001; 82570; 84156; 99202

== ENCOUNTER 2024-04-08 14:50 | Outpatient (AMB) | payer MEDICAID, SELFPAY ==
[2024-04-08 14:51] VITALS: BP 128/84; PULSE 82; O2SAT 92; BMI 44.8
--- NOTE | 2024-04-08 14:51 | HO.NEPHOV ---
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 He was found to have proteinuria. He was seen by urologist for microhematuria. He refused to have cystoscopy. Imaging studies have been unremarkable. Urine cytology has been negative. 01/09/2023-navigational bronchoscopy with biopsy, de Renuka left upper lobe wedge with completion segmentectomy, mediastinal lymphadenectomy?. He underwent left upper lobe which resection/segmentectomy on 01/09/2023 at [facility]. Pathology revealed invasive adenocarcinoma, tumor size 2 x 1.5 x 1.1 cm, spread through air spaces identified, visceral pleural invasion not identified, margins negative. No regional lymph nodes identified. Pathological stage pT2a pNX. IHC revealed TTF1 positive, P 40 negative. NGS testing revealed PDL1 , TPS 4%, KRAS Exon 2 detected(p.G12R), ALK rearrangement not detected, BRAF mutation not detected, EGFR mutation not detected ROS1 negative. Positive for hepatitis-B core antibody. History of remote infection. He was made referral to GI, he no showed his appointment twice. PET scan performed 02/27/2023 showed postsurgical changes the left hemithorax without any FDG avid disease. No evidence of residual disease or metastatic disease. Patient presented at tumor Board (), as per discussion at tumor board, he has been recommended adjuvant chemotherapy since he has had inadequate surgery and staging of his lung cancer. He received 4 cycles of cis-red lake/pemetrexed which he completed on 06/11/2023. Pulmonary emboli, CTA 02/21/23 showed small filling defects in branches of right pulmonary artery no large embolus. He was on anticoagulation until December 2023 for postoperative pulmonary embolism. He continues to smoke cigarettes up to 5 a day. In the past he has smoked a pack and a half. He has obesity with a BMI of 45.6 Semaglutide was started at the end of 03/10/2024 04/08/24: Still smokes NO new issues Takes Ibuprofen 800 mg daily PFSH Medical History Pulmonary emboli Osteoarthritis Pleuritic chest pain Post-thoracotomy pain syndrome Asthma-COPD overlap syndrome Lung cancer (~2022) Nicotine dependence, cigarettes, uncomplicated Depression with anxiety Obesity DA (obstructive sleep apnea) Hepatitis C HLD (hyperlipidemia) Methadone maintenance therapy patient History of CVA (cerebrovascular accident) (~2008) Surgical History Hx of appendectomy History of lung surgery History of bilateral hip replacements History of carpal tunnel surgery History of left inguinal hernia repair History of esophagogastroduodenoscopy (EGD) History of colonoscopy Family History Father No problems noted. Mother Family history of high blood pressure Hx of diabetes insipidus Social History Household Members: None Housing: Apartment Do you presently have visiting nurse or other home services: Yes Alcohol intake: former Patient Tobacco Use Status: Current everyday Tobacco user Tobacco use type: Cigarette Years Smoked: (onset 13yo, 1ppd x 44yrs, now 3/4ppd, 40pyh) e-Cigarette/Vaping Use: Currently Using service: No Current occupational status: disabled Physical Exam Vital Signs: BMI result Body Mass Index 44.8 Const General: comfortable Nutritional Appearance: well nourished and obese Orientation/consciousness: patient oriented x3 HEENT Head: No normal to inspection Mouth: moist mucous membranes Neck Neck: Yes supple and Yes no JVD Resp Auscultation: clear to auscultation bilaterally and no rales Cardio Jugular venous distension: no JVD Palpation: no palpable S3 and no palpable S4 Heart sounds: no rubs GI Palpation (GI): Soft to palpation and nontender Percussion: No Fluid wave present General: Yes no CVA tenderness Back/Spine/Pelvis Back: no CVA tenderness Skin General skin exam: no rashes or lesions noted Neuro General: patient oriented x3 Extrem General: Yes no pedal edema and No clubbing Results Reviewed Nephrology Results: Hgb 12.5 g/dl (14.0-18.0) L 03/21/24 WBC 7.2 X10*3/uL (4.8-10.8) 03/21/24 Plt Count 225 X10*3/uL (160-400) 03/21/24 Sodium 139 mmol/L (135-145) 03/21/24 Potassium 4.0 mmol/L (3.3-5.1) 03/21/24 Chloride 101 mmol/L (96-108) 03/21/24 Carbon Dioxide 31 mmol/L (22-29) H 03/21/24 BUN 16 mg/dL (9-16) 03/21/24 Creatinine 1.12 mg/dL (0.5-1.4) 03/21/24 Calcium 10.2 mg/dL (8.4-10.2) 03/21/24 Urine Protein 30 (1+) mg/dL (Neg-Trace) H 03/26/24 Urine Creatinine 109.43 mg/dL 03/26/24 Renal US 02/21/24 Assessment & Plan Assessment & Plan (1) Proteinuria: Code(s): R80.9 - Proteinuria, unspecified Category: Medical Plan . Dru is a 59-year-old man with a history of obesity and lung cancer. Status post chemotherapy. He was found to have dipstick positive proteinuria and is here for further evaluation. Proteinuria is most likely due to obesity. No significant RBCs in the past. Glomerulonephritis or interstitial disease seem unlikely at this time. Urine Pro: cr is 275 mg Non nephrotic range shall follow closely and if this increases would obtain a biopsy Ordered SPEP Unable to add ACEi since he marisol NSAIDS. He does not want to stop Ibuprofen I discussed importance of weight loss. He is currently and semaglutide which should help with weight loss. I encouraged him to cut back on the calorie intake and increase his physical activity as well. He has mild CKD. in 2019, baseline creatinine was around 0.6 to 0.7 mg/dL. For the last 1 year serum creatinine has been staying around 1.1-1.3 mg/dL. This is probably his new baseline after completion of chemotherapy with [place]-based chemotherapy. For now we will continue to monitor renal function closely and avoid nephrotoxic agents. Orders: Orders Comprehensive Met. Panel 3 Months R80.9 - Proteinuria, unspecified UA and rflx microscopic 3 Months R80.9 - Proteinuria, unspecified Total Protein Urine Random 3 Months R80.9 - Proteinuria, unspecified Creatinine Urine 3 Months R80.9 - Proteinuria, unspecified Protein Electrophoresis, Serum 3 Months R80.9 - Proteinuria, unspecified Coding Level of Care Code Est Pt Level 4 (78809) Diagnoses Proteinuria R80.9
== END 2024-04-08 15:07 | disposition home or self-care (01) ==
PROVIDERS: PCP Registered Nurse; Referring Provider Registered Nurse; Visit Provider Internal Medicine Hypertension Specialist
DX: R80.9 Proteinuria, unspecified (principal)
CPT/HCPCS: 99214

== ENCOUNTER → 2024-04-08 14:50 | Outpatient (BNVA) | payer MEDICAID, SELFPAY | PROVIDERS: PCP Registered Nurse; Visit Provider Internal Medicine Hypertension Specialist | DX: R80.9 Proteinuria, unspecified (principal) | CPT/HCPCS: 99212 ==

== ENCOUNTER 2024-04-28 11:10 | Outpatient (AMB) | payer MEDICAID, SELFPAY ==
[2024-04-28 11:14] VITALS: PULSE 78; O2SAT 96; BMI 44.7
--- NOTE | 2024-04-28 11:14 | MHC.OFFVIS ---
Vital Signs 04/28/24 11:14 Height 5 ft 8 in Weight 294 lb 5.074 oz BMI 44.7 Pulse 78 Pulse Source Pulse Oximeter Pulse Oximetry (%) 96 Oxygen Delivery Method Room Air Intake Visit Reasons: Shortness of breath Senior Director Marketing Required: No Allergies Penicillins [PENICILLINS] Allergy (Unknown, Verified 04/28/24 11:16) UNKNOWN HPI Comments Details: The patient is 59-year-old gentleman active smoker who was started developing worsening cough. The patient was seen by his primary care doctor with he was referred to the lung cancer screening program and underwent a CT scan of the chest. That demonstrated a 1.2 irregular left-sided pulmonary nodule. The patient was referred to the thoracic surgeon will operate on him resecting the nodular density which indeed was malignant. The patient was treated with curative intent. He had the surgery effectively. Now he is having some shortness of breath postop. He still having coughing. She we did review his pulmonary function studies prior to surgery demonstrating a reversible obstruction consistent with asthma. In addition to this the patient is having some shortness of breath and pain upon breathing. He understands that this will take some time to heal after surgery. He does have a follow-up with surgeon on January 23. He does have the bandages all dried up with blood. I did remove and replace it with a Tegaderm just to cover the area that was slightly open. The patient wants to be able to take a shower. The area looks dry enough to be able to do so. In regards of smoking the patient understands he needs to quit. He does have the nicotine patch. A game also the Nicorette gum that he can use intermittently for breakthrough. I did explain to him that he does not want to overdo the Nicorette gum because it will be too high of a nicotine dose. Therefore if he is using the 21 mg patch just to limited to 2-3 a day. 03/02/2023 the patient is here for a pulmonary follow-up visit. The patient has had a very bed for few weeks. He started developing worsening respiratory symptoms as well as significant tachycardia. He was evaluated by Oncology at that time. Because of the significant tachycardia and discomfort he was sent to the ER. There he had a CTA will be in for a pulmonary emboli. The patient subsequently placed on Eliquis. He has been to the ER now multiple times because of recurrent chest pains and shortness of breath. He has chronic pain issues so for him to have pain as very severe he states. Typically the pain is between 8-10/10 the. The pain is mainly at the surgical site. 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 He does have a pleural effusion. He does report to Toradol in the past. However, now that he is on Eliquis and concerned that too much as 3 L can result in increased bleeding. Therefore will back off on using NSAIDs. I will give the patient Percocet in order for him to continue with Tylenol and oxycodone on to try to alleviate the symptoms. Explained to the patient that given a prescription now but does not mean that is going to continue getti controlled pain medications from a. Patient with continued given the Eliquis. He understands very important for him to take it. He also needs to start chemotherapy. I explained to him that I will also agreeable for him to complete the 4 cycles of chemo ended can not be evaluated. I at that point if the be reasonable to sample his lymph nodes we can always consider a endobronchial ultrasound bronchoscopy to given complete reassurance that the mediastinum is clear since he couldnt have a during surgery. 06/19/2023 the patient is here for a pulmonary follow-up visit. The patient overall has been doing better. His pain is better controlled. He continues on the Eliquis for the pulmonary emboli and seems to be tolerating that well. No evidence of any minor major bleeding. He completed his cycles of chemotherapy. Once he has completed with chemotherapy he will have restaging. The patient will follow up with Oncology for that. I did reach out to Oncology to see when he is scheduled to be evaluated. From a respiratory status he continues uses respiratory therapy with good effect. He did quit smoking. He has been about 11 or 12 days. His motivated and reassured. He is eager to find out his response to chemotherapy. 10/16/2023 the patient is here for a pulmonary follow-up visit. He continues to do fairly well from a respiratory status. Does complaint of the pleuritic chest discomfort after his surgery. Explained to him that this could be a chronic issue for him. In addition to that he continues on the Eliquis 5 mg twice a day. He is tolerating that well without any evidence of any adverse effects. We talked about the importance of continuing the medication. Will reassess with a V/Q scan in the springtime to see if there is any evidence of any chronic clot. At that point once he completes a year worth of therapy we can consider prophylactic dose of 2.5 twice a day versus continuing the 5 mg twice a day. Based on the fact that he is at cancer I will recommend that he continue some degree of anticoagulation this time. We talked about the importance of smoking cessation. He is willing to try the patch again. He would like to quit for 2023. Otherwise he is without any other complaints. 04/28/2024 the patient is here for pulmonary follow-up visit. The patient overall has been doing okay. He continues with his respiratory medications which include Breo and Incruse. The medications have been affecting beneficial. The patient unfortunately continues to smoke cigarettes. He quit for a few months and then restarted again. He is about 5 cigarettes a day or so. He still struggling. He is also complaining of lower extremity edema which she has had for some time. He did have a repeat CT scan of the chest sometime in the spring 2023 likely around January at [facility]. This was ordered through thoracic surgery. He will continue to get CAT scans every 6 months for least 5 years in view of his lung cancer diagnosis. In view of his COPD and also lung cancer resection will go ahead and request an overnight oximetry to assess his oxygen needs at nighttime. [facility] Medical History Pulmonary emboli Osteoarthritis Pleuritic chest pain Post-thoracotomy pain syndrome Asthma-COPD overlap syndrome Lung cancer (~2022) Nicotine dependence, cigarettes, uncomplicated Depression with anxiety Obesity DA (obstructive sleep apnea) Hepatitis C HLD (hyperlipidemia) Methadone maintenance therapy patient History of CVA (cerebrovascular accident) (~2008) Surgical History Hx of appendectomy History of lung surgery History of bilateral hip replacements History of carpal tunnel surgery History of left inguinal hernia repair History of esophagogastroduodenoscopy (EGD) History of colonoscopy Family History Father No problems noted. Mother Family history of high blood pressure Hx of diabetes insipidus Social History Household Members: None Housing: Apartment Do you presently have visiting nurse or other home services: Yes Alcohol intake: former Patient Tobacco Use Status: Current everyday Tobacco user Tobacco use type: Cigarette Years Smoked: (onset 13yo, 1ppd x 44yrs, now 3/4ppd, 40pyh) e-Cigarette/Vaping Use: Currently Using service: No Current occupational status: disabled Review of Systems Const Denies fever(s) and Denies weakness Eyes Denies change in vision ENT Denies dizziness Card Reports chest pain Resp Denies cough and Denies wheezing GI Denies hematochezia and Denies change in stool character Musc Denies abnormal gait, Denies muscle cramps, Denies muscle weakness, Denies numbness, Denies radiating pain into limb and Reports tingling Skin/Breast Reports as per HPI Neuro Denies abnormal gait, Denies dizziness, Denies numbness, Reports tingling and Denies weakness Darin/Lymph Denies easy bleeding, Denies easy bruising and Denies lymphadenopathy Aller/Immun Denies wheezing Physical Exam Vital Signs: Last Vital Signs Pulse 78 04/28/24 11:14 Pulse Ox 96 04/28/24 11:14 Oxygen Delivery Method Room Air 04/28/24 11:14 BMI result Body Mass Index 44.7 Const General: comfortable and no acute distress Orientation/consciousness: patient oriented x3 HEENT Other: Unremarkable Head: Yes normal to inspection Neck Neck: Yes normal visual inspection Resp Auscultation: diminished lung sounds Cardio Heart sounds: S1 normal heart sound present and S2 normal heart sound present GI Palpation (GI): Soft to palpation Back/Spine/Pelvis Other: unremarkable Skin Wounds: wounds noted Neuro General: patient oriented x3 Extrem General: Yes normal to inspection Psych Mental Status: mental status grossly normal Assessment & Plan Assessment & Plan (1) Lung cancer: Onset Date: ~2022 Comment: (Adenocarcinoma - s/p PAXTON segmentectomy 12/2022) Code(s): C34.90 - Malignant neoplasm of unspecified part of unspecified bronchus or lung Category: Medical Qualifiers: Laterality: left Lung location: upper lobe of lung Qualified Code(s): C34.12 - Malignant neoplasm of upper lobe, left bronchus or lung (2) SOB (shortness of breath): Code(s): R06.02 - Shortness of breath Category: Medical (3) Asthma-COPD overlap syndrome: Code(s): J44.9 - Chronic obstructive pulmonary disease, unspecified Category: Medical (4) Nicotine dependence, cigarettes, uncomplicated: Comment: stopped smoking Code(s): F17.210 - Nicotine dependence, cigarettes, uncomplicated Category: Medical (5) Left upper lobe pulmonary nodule: Comment: (1.1 x 1.2 cm lesion in PAXTON - noted on 10/27/22 LDCT) Code(s): R91.1 - Solitary pulmonary nodule Category: Medical (6) Pulmonary emboli: Onset Date: ~02/2023 Code(s): I26.99 - Other pulmonary embolism without acute cor pulmonale Category: Medical Qualifiers: Pulmonary embolism type: single subsegmental (without acute cor pulmonale) Qualified Code(s): I26.93 - Single subsegmental pulmonary embolism without acute cor pulmonale (7) Post-thoracotomy pain syndrome: Code(s): G89.12 - Acute post-thoracotomy pain Category: Medical Plan Bloodwork including Ddimer, if elevated will reques a VQ scan Trelegy inhaler EVELYN as needed continue tobacco cessation overnight oximetry F/U 4-6 months Orders: Orders Overnight Pulse Oximetry Today J44.9 - Chronic obstructive pulmonary disease, unspecified Complete Blood Count Auto Diff Today I26.93 - Single subsegmental pulmonary embolism without acute cor pulmonale Basic Metabolic Panel Today I26.93 - Single subsegmental pulmonary embolism without acute cor pulmonale D Dimer High Sensitivity Today I26.93 - Single subsegmental pulmonary embolism without acute cor pulmonale Erythrocyte Sedimentation Rate Today I26.93 - Single subsegmental pulmonary embolism without acute cor pulmonale Coding Level of Care Code Est Pt Level 4 (20425) Diagnoses Malignant neoplasm of upper lobe of left lung C34.12 Laterality: left Lung location: upper lobe of lung SOB (shortness of breath) R06.02 Asthma-COPD overlap syndrome J44.9 Nicotine dependence, cigarettes, uncomplicated F17.210 Left upper lobe pulmonary nodule R91.1 Single subsegmental pulmonary embolism without acute cor pulmonale I26.93 Pulmonary embolism type: single subsegmental (without acute cor pulmonale) Post-thoracotomy pain syndrome G89.12 Time Spent (min) 17
== END 2024-04-28 11:36 | disposition home or self-care (01) ==
PROVIDERS: PCP Registered Nurse; Visit Provider Hospitalist
DX: C34.12 Malignant neoplasm of upper lobe, left bronchus or lung (principal); R06.02 Shortness of breath; J44.9 Chronic obstructive pulmonary disease, unspecified; F17.210 Nicotine dependence, cigarettes, uncomplicated; R91.1 Solitary pulmonary nodule; I26.93 Single subsegmental thrombotic pulmonary embolism without acute cor pulmonale; G89.12 Acute post-thoracotomy pain
CPT/HCPCS: 99214

== ENCOUNTER → 2024-04-28 11:10 | Outpatient (BNVA) | payer MEDICAID, SELFPAY | PROVIDERS: PCP Registered Nurse; Visit Provider Hospitalist | DX: C34.12 Malignant neoplasm of upper lobe, left bronchus or lung (principal); J44.9 Chronic obstructive pulmonary disease, unspecified; R91.1 Solitary pulmonary nodule; I26.93 Single subsegmental thrombotic pulmonary embolism without acute cor pulmonale; G89.12 Acute post-thoracotomy pain; F17.210 Nicotine dependence, cigarettes, uncomplicated | CPT/HCPCS: 99212 ==

== ENCOUNTER 2024-05-16 13:32 | Outpatient (REF) | payer MEDICAID, SELFPAY ==
[2024-05-16 13:46] LABS: MANUAL DIFF FLAG NO
[2024-05-16 14:24] LABS: Basophils Absolute Auto 0.1 X10*3/uL (0.0-0.2); Basophils Percent Auto 0.7 % (0-2); Eosinophils Absolute Auto 0.1 X10*3/uL (0.0-0.4); Eosinophils Percent Auto 1.7 % (0-4); Hematocrit 38.7 % (42.0-52.0); Hemoglobin 12.2 g/dl (14.0-18.0); Imm Gran Abs Auto 0.02 X10*3/uL (0.00-0.03); Imm Gran Pct Auto 0.3 % (0.0-0.4); Lymphocytes Absolute Auto 2.3 X10*3/uL (1.2-4.9); Lymphocytes Percent Auto 32.5 % (20-40); Mean Corpuscular HGB Conc 31.5 g/dl (31.0-36.0); Mean Corpuscular Hemoglobin 28.7 pg (27.0-33.0); Mean Corpuscular Volume 91.1 fL (80.0-98.0); Monocytes Absolute Auto 0.5 X10*3/uL (0.1-1.2); Monocytes Percent Auto 7.4 % (2-11); Neutrophils Absolute Auto 4.2 x10*3/uL (2.0-8.3); Neutrophils Percent Auto 57.4 % (45-73); Platelet Count 205 X10*3/uL (160-400); Red Blood Count 4.25 X10*6/uL (4.60-5.80); Red Cell Distribution Width 13.8 % (11.0-16.0); White Blood Count 7.2 X10*3/uL (4.8-10.8)
[2024-05-16 14:45] LABS: Anion Gap 12 (12-20); Blood Urea Nitrogen 16 mg/dL (9-16); Calcium 10.1 mg/dL (8.4-10.2); Carbon Dioxide 31 mmol/L (22-29); Chloride 103 mmol/L (96-108); Estimated Glomerular Filt Rate > 60; Glucose Random 75 mg/dL (60-115); Sodium 142 mmol/L (135-145)
[2024-05-16 14:50] LABS: D Dimer High Sensitivity 279 NG/ML
[2024-05-16 15:00] LABS: Erythrocyte Sedimentation Rate 33 MM/HR (0-15)
== END 2024-05-16 13:33 | disposition home or self-care (01) ==
LOC: HO.LAB 13:32
PROVIDERS: PCP Registered Nurse; Visit Provider Hospitalist
DX: I26.93 Single subsegmental thrombotic pulmonary embolism without acute cor pulmonale (principal)
CPT/HCPCS: 36415; 80048; 85025; 85379; 85652

== ENCOUNTER 2024-06-30 11:59 | Outpatient (REF) | payer MEDICAID, SELFPAY ==
[2024-06-30 14:49] LABS: Appearance Urine Clear; Color Urine Yellow; Glucose Urine UA Negative (Negative); Leukocyte Esterase Urine Negative (Negative); Nitrite Urine Negative (Negative); UMIC TRIGGER UA YES; Urine Blood Negative (Negative); Urine Ketones Negative (Negative); Urine Protein 30 (1+) mg/dL (Neg-Trace)
[2024-06-30 14:54] LABS: Bacteria Urine None Seen (None Seen); Hyaline Casts Urine 0-2 /LPF (0-2); RBC Urine 0-2 /HPF (0-2); Squamous Epithelial Cell Urine 0-2 /HPF (0-2); WBC Urine 0-5 /HPF (0-5)
[2024-06-30 14:55] LABS: Alanine Aminotransferase 12 U/L (0-40); Albumin Level 4.3 g/dL (3.5-5.0); Alkaline Phosphatase 87 U/L (39-117); Anion Gap 15 (12-20); Aspartate Amino Transferase 17 U/L (5-37); Bilirubin Total 0.3 mg/dL (0.0-1.0); Blood Urea Nitrogen 12 mg/dL (9-16); Calcium 10.3 mg/dL (8.4-10.2); Carbon Dioxide 28 mmol/L (22-29); Chloride 103 mmol/L (96-108); Estimated Glomerular Filt Rate 57; Glucose Random 95 mg/dL (60-115); Potassium 4.6 mmol/L (3.3-5.1); Sodium 141 mmol/L (135-145); Total Protein 7.9 g/dL (6.5-8.0)
[2024-06-30 15:24] LABS: Creatinine Urine 67.06 mg/dL; Total Protein Urine Random 54 mg/dL (<12)
[2024-07-01 21:53] LABS: Prot Elec - Alpha1 0.4 g/dL (0.2-0.3); Prot Elec - Alpha2 0.9 g/dL (0.5-0.9); Prot Elec - Beta 1 0.4 g/dL (0.4-0.6); Prot Elec - Beta 2 0.5 g/dL (0.2-0.5); Prot Elec - Gamma 1.1 g/dL (0.8-1.7); Prot Elec - Total Protein 7.3 g/dL (6.1-8.1)
== END 2024-06-30 12:00 | disposition home or self-care (01) ==
LOC: HO.CHCLDS 11:59
PROVIDERS: Visit Provider Internal Medicine Hypertension Specialist
DX: R80.9 Proteinuria, unspecified (principal)
CPT/HCPCS: 36415; 80053; 81001; 82570; 84156; 84165

== ENCOUNTER 2024-08-12 15:07 | Outpatient (AMB) | payer MEDICAID, SELFPAY ==
--- NOTE | 2024-08-12 15:19 | HO.NEPHOV_ITS ---
Vital Signs 08/12/24 15:20 Height 5 ft 8 in Weight 280 lb BMI 42.6 BP 112/64 Blood Pressure Location Rt brachial Position Sitting Pulse 71 Pulse Source Pulse Oximeter Pulse Oximetry (%) 95 Oxygen Delivery Method Room Air Intake Visit Reasons: Missed June appointment Independent Living Advisor Required: No Accompanied by: Self / Same As Patient Allergies Penicillins [PENICILLINS] Allergy (Unknown, Verified 08/12/24 15:23) UNKNOWN Medication List - Last Reconciled 08/12/24 by Raj Galvin MD albuterol sulfate 90 mcg/actuation (Ventolin HFA) 2 puffs inhalation QID PRN 30 days duloxetine 60 mg PO DAILY fluticasone furoate-vilanterol 200-25 mcg/dose (Breo Ellipta) 1 inh inhalation DAILY 30 days furosemide 20 mg PO DAILY gabapentin 300 mg PO BID linaclotide (Linzess) 290 mcg PO QAM methadone 55 mg PO BEDTIME methadone 90 mg PO DAILY multivitamin 1 tab PO DAILY omeprazole 20 mg PO DAILY rosuvastatin (Crestor) 20 mg PO DAILY semaglutide (weight loss) (Wegovy) 1 mg subcut QWEEK trazodone 100 mg PO BEDTIME PRN umeclidinium 62.5 mcg/actuation (Incruse Ellipta) 1 inh inhalation DAILY 30 days HPI Comments Details: Dru is a pleasant 59-year-old man with a history of obesity. He was found to have proteinuria. He was seen by urologist for microhematuria. He refused to have cystoscopy. Imaging studies have been unremarkable. Urine cytology has been negative. 01/09/2023-navigational bronchoscopy with biopsy, de Renuka left upper lobe wedge with completion segmentectomy, mediastinal lymphadenectomy?. He underwent left upper lobe which resection/segmentectomy on 01/09/2023 at [facility]. Pathology revealed invasive adenocarcinoma, tumor size 2 x 1.5 x 1.1 cm, spread through air spaces identified, visceral pleural invasion not identified, margins negative. No regional lymph nodes identified. Pathological stage pT2a pNX. IHC revealed TTF1 positive, P 40 negative. NGS testing revealed PDL1 , TPS 4%, KRAS Exon 2 detected(p.G12R), ALK rearrangement not detected, BRAF mutation not detected, EGFR mutation not detected ROS1 negative. Positive for hepatitis-B core antibody. History of remote infection. He was made referral to GI, he no showed his appointment twice. PET scan performed 02/27/2023 showed postsurgical changes the left hemithorax without any FDG avid disease. No evidence of residual disease or metastatic disease. Patient presented at tumor Board (), as per discussion at tumor board, he has been recommended adjuvant chemotherapy since he has had inadequate surgery and staging of his lung cancer. He received 4 cycles of cis-tuolumne/pemetrexed which he completed on 06/11/2023. Pulmonary emboli, CTA 02/21/23 showed small filling defects in branches of right pulmonary artery no large embolus. He was on anticoagulation until December 2023 for postoperative pulmonary embolism. He continues to smoke cigarettes up to 5 a day. In the past he has smoked a pack and a half. He has obesity with a BMI of 45.6 Semaglutide was started at the end of 03/10/2024 04/08/24: Still smokes NO new issues Takes Ibuprofen 800 mg daily PFSH Medical History Pulmonary emboli Osteoarthritis Pleuritic chest pain Post-thoracotomy pain syndrome Asthma-COPD overlap syndrome Lung cancer (~2022) Nicotine dependence, cigarettes, uncomplicated Depression with anxiety Obesity DA (obstructive sleep apnea) Hepatitis C HLD (hyperlipidemia) Methadone maintenance therapy patient History of CVA (cerebrovascular accident) (~2008) Surgical History Hx of appendectomy History of lung surgery History of bilateral hip replacements History of carpal tunnel surgery History of left inguinal hernia repair History of esophagogastroduodenoscopy (EGD) History of colonoscopy Family History Father No problems noted. Mother Family history of high blood pressure Hx of diabetes insipidus Social History Household Members: None Housing: Apartment Do you presently have visiting nurse or other home services: Yes Alcohol intake: former Patient Tobacco Use Status: Current everyday Tobacco user Tobacco use type: Cigarette Years Smoked: (onset 13yo, 1ppd x 44yrs, now 3/4ppd, 40pyh) e-Cigarette/Vaping Use: Currently Using service: No Current occupational status: disabled Physical Exam Vital Signs: Last Vital Signs Pulse 71 08/12/24 15:20 BP 112/64 08/12/24 15:20 Pulse Ox 95 08/12/24 15:20 Oxygen Delivery Method Room Air 08/12/24 15:20 BMI result Body Mass Index 42.6 Results Reviewed Nephrology Results: Hgb 12.2 g/dl (14.0-18.0) L 05/16/24 WBC 7.2 X10*3/uL (4.8-10.8) 05/16/24 Plt Count 205 X10*3/uL (160-400) 05/16/24 Sodium 141 mmol/L (135-145) 06/30/24 Potassium 4.6 mmol/L (3.3-5.1) 06/30/24 Chloride 103 mmol/L (96-108) 06/30/24 Carbon Dioxide 28 mmol/L (22-29) 06/30/24 BUN 12 mg/dL (9-16) 06/30/24 Creatinine 1.30 mg/dL (0.5-1.4) 06/30/24 Calcium 10.3 mg/dL (8.4-10.2) H 06/30/24 Urine Protein 30 (1+) mg/dL (Neg-Trace) H 06/30/24 Urine Creatinine 67.06 mg/dL 06/30/24 Assessment & Plan Assessment & Plan (1) Proteinuria: Code(s): R80.9 - Proteinuria, unspecified Category: Medical Plan . Dru is a 59-year-old man with a history of obesity and lung cancer. Status post chemotherapy. He was found to have dipstick positive proteinuria and is here for further evaluation. Proteinuria is most likely due to obesity. No significant RBCs in the past. Glomerulonephritis or interstitial disease seem unlikely at this time. Urine Pro: cr is 275 mg Non nephrotic range No monoclonal proteins no monoclonal proteins No absolute indication for biopsy at this time Unable to add ACEi since he is on NSAIDS. Encouraged him to stop ibuprofen. I discussed importance of weight loss. He is currently and semaglutide which should help with weight loss. I encouraged him to cut back on the calorie intake and increase his physical activity as well. He has mild CKD. in 2020, baseline creatinine was around 0.6 to 0.7 mg/dL. For the last 1 year serum creatinine has been staying around 1.1-1.3 mg/dL. This is probably his new baseline after completion of chemotherapy with tuolumne-based chemotherapy. For now we will continue to monitor renal function closely and avoid nephrotoxic agents. Orders: Orders Creatinine Urine 4 Months R80.9 - Proteinuria, unspecified Basic Metabolic Panel 4 Months R80.9 - Proteinuria, unspecified Total Protein Urine Random 4 Months R80.9 - Proteinuria, unspecified Coding Level of Care Code Est Pt Level 4 (11199) Diagnoses Proteinuria R80.9
[2024-08-12 15:20] VITALS: BP 112/64; PULSE 71; O2SAT 95; BMI 42.6
== END 2024-08-12 15:45 | disposition home or self-care (01) ==
PROVIDERS: PCP Registered Nurse; Visit Provider Internal Medicine Hypertension Specialist
DX: R80.9 Proteinuria, unspecified (principal); N18.2 Chronic kidney disease, stage 2 (mild)
CPT/HCPCS: 99214

== ENCOUNTER → 2024-08-12 15:07 | Outpatient (BNVA) | payer MEDICAID, SELFPAY | PROVIDERS: PCP Registered Nurse; Visit Provider Internal Medicine Hypertension Specialist | DX: R80.9 Proteinuria, unspecified (principal); E66.9 Obesity, unspecified; F17.210 Nicotine dependence, cigarettes, uncomplicated; Z68.42 Body mass index [BMI] 45.0-49.9, adult | CPT/HCPCS: 99212 ==

== ENCOUNTER 2024-09-12 14:25 | Outpatient (AMB) | payer MEDICAID, SELFPAY ==
[2024-09-12 14:36] VITALS: BP 152/80; PULSE 77; O2SAT 96; BMI 41.7
--- NOTE | 2024-09-12 14:36 | A.OFFVIS_ITS ---
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 The patient was seen by his primary care doctor with he was referred to the lung cancer screening program and underwent a CT scan of the chest. That demonstrated a 1.2 irregular left-sided pulmonary nodule. The patient was referred to the thoracic surgeon will operate on him resecting the nodular density which indeed was malignant. The patient was treated with curative intent. He had the surgery effectively. Now he is having some shortness of breath postop. He still having coughing. She we did review his pulmonary function studies prior to surgery demonstrating a reversible obst ruction consistent with asthma. In addition to this the patient is having some shortness of breath and pain upon breathing. He understands that this will take some time to heal after surgery. He does have a follow-up with surgeon on January 23. He does have the bandages all dried up with blood. I did remove and replace it with a Tegaderm just to cover the area that was slightly open. The patient wants to be able to take a shower. The area looks dry enough to be able to do so. In regards of smoking the patient understands he needs to quit. He does have the nicotine patch. A game also the Nicorette gum that he can use intermittently for breakthrough. I did explain to him that he does not want to overdo the Nicorette gum because it will be too high of a nicotine dose. Therefore if he is using the 21 mg patch just to limited to 2-3 a day. 03/02/2023 the patient is here for a pulmonary follow-up visit. The patient has had a very bed for few weeks. He started developing worsening respiratory symptoms as well as significant tachycardia. He was evaluated by Oncology at that time. Because of the significant tachycardia and discomfort he was sent to the ER. There he had a CTA will be in for a pulmonary emboli. The patient subsequently placed on Eliquis. He has been to the ER now multiple times because of recurrent chest pains and shortness of breath. He has chronic pain issues so for him to have pain as very severe he states. Typically the pain is between 8-10/10 the. The pain is mainly at the surgical site. 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 He does have a pleural effusion. He does report to Toradol in the past. However, now that he is on Eliquis and concerned that too much as 3 L can result in increased bleeding. Therefore will back off on using NSAIDs. I will give the patient Percocet in order for him to continue with Tylenol and oxycodone on to try to alleviate the symptoms. Explained to the patient that given a prescription now but does not mean that is going to continue getti controlled pain medications from a. Patient with continued given the Eliquis. He understands very important for him to take it. He also needs to start chemotherapy. I explained to him that I will also agreeable for him to complete the 4 cycles of chemo ended can not be evaluated. I at that point if the be reasonable to sample his lymph nodes we can always consider a endobronchial ultrasound bronchoscopy to given complete reassurance that the mediastinum is clear since he couldnt have a during surgery. 06/19/2023 the patient is here for a pulmonary follow-up visit. The patient overall has been doing better. His pain is better controlled. He continues on the Eliquis for the pulmonary emboli and seems to be tolerating that well. No evidence of any minor major bleeding. He completed his cycles of chemotherapy. Once he has completed with chemotherapy he will have restaging. The patient will follow up with Oncology for that. I did reach out to Oncology to see when he is scheduled to be evaluated. From a respiratory status he continues uses respiratory therapy with good effect. He did quit smoking. He has been about 11 or 12 days. His motivated and reassured. He is eager to find out his response to chemotherapy. 10/16/2023 the patient is here for a pulmonary follow-up visit. He continues to do fairly well from a respiratory status. Does complaint of the pleuritic chest discomfort after his surgery. Explained to him that this could be a chronic issue for him. In addition to that he continues on the Eliquis 5 mg twice a day. He is tolerating that well without any evidence of any adverse effects. We talked about the importance of continuing the medication. Will reassess with a V/Q scan in the springtime to see if there is any evidence of any chronic clot. At that point once he completes a year worth of therapy we can consider prophylactic dose of 2.5 twice a day versus continuing the 5 mg twi ce a day. Based on the fact that he is at cancer I will recommend that he continue some degree of anticoagulation this time. We talked about the importance of smoking cessation. He is willing to try the patch again. He would like to quit for 2023. Otherwise he is without any other complaints. 04/28/2024 the patient is here for pulmonary follow-up visit. The patient overall has been doing okay. He continues with his respiratory medications which include Breo and Incruse. The medications have been affecting beneficial. The patient unfortunately continues to smoke cigarettes. He quit for a few months and then restarted again. He is about 5 cigarettes a day or so. He still struggling. He is also complaining of lower extremity edema which she has had for some time. He did have a repeat CT scan of the chest sometime in the spring 2023 likely around January at [facility]. This was ordered through thoracic surgery. He will continue to get CAT scans every 6 months for least 5 years in view of his lung cancer diagnosis. In view of his COPD and also lung cancer resection will go ahead and request an overnight oximetry to assess his oxygen needs at nighttime. 09/12/2024 the patient is here for pulmonary follow-up visit. Overall the patient has been doing well. Unfortunately continues to smoke cigarettes. He responds well to the Breo and the Incruse. He has been taking them daily. He has not had to use his rescue inhaler often does not 2 times a week. He continues to get serial imaging so the chest at [facility] with the thoracic surgery program there to follow-up with his history of lung cancer. In the meantime he has not been using the CPAP. He is sleeps elevated and seems like it is getting restful sleep with an [place] score of 7/24. Therefore healed all hold off at this time. He never had his overnight oximetry which is okay. For now he seems to be stable. Recently had a knee surgery done actually a total knee replacement and he tolerated that well does have some swelling of the leg but minimal. The patient follow-up in 6-8 months. If he has any issues prior to that he will call for an earlier assessment. [facility] Medical History Pulmonary emboli Osteoarthritis Pleuritic chest pain Post-thoracotomy pain syndrome Asthma-COPD overlap syndrome Lung cancer (~2022) Nicotine dependence, cigarettes, uncomplicated Depression with anxiety Obesity DA (obstructive sleep apnea) Hepatitis C HLD (hyperlipidemia) Methadone maintenance therapy patient History of CVA (cerebrovascular accident) (~2008) Surgical History Hx of appendectomy History of lung surgery History of bilateral hip replacements History of carpal tunnel surgery History of left inguinal hernia repair History of esophagogastroduodenoscopy (EGD) History of colonoscopy Family History Father No problems noted. Mother Family history of high blood pressure Hx of diabetes insipidus Social History (Updated 09/12/24 @ 14:40 by Ayana Roland Lynda) Household Members: None Housing: Apartment Do you presently have visiting nurse or other home services: Yes Alcohol intake: former Patient Tobacco Use Status: Current everyday Tobacco user Tobacco use type: Cigarette Cigarette Packs Per Day: 0.5 Cigarettes Per Day: 8 Years Smoked: (onset 13yo, 1ppd x 44yrs, now 3/4ppd, 40pyh) e-Cigarette/Vaping Use: Currently Using service: No Current occupational status: disabled Review of Systems Const Unobtainable due to mental condition Denies fever(s) and Denies weakness Eyes Denies change in vision ENT Denies dizziness Card Reports chest pain Resp Denies cough and Denies wheezing GI Denies hematochezia and Denies change in stool character Musc Denies abnormal gait, Denies muscle cramps, Denies muscle weakness, Denies numbness, Denies radiating pain into limb and Reports tingling Skin/Breast Reports as per HPI Neuro Denies abnormal gait, Denies dizziness, Denies numbness, Reports tingling and Denies weakness Darin/Lymph Denies easy bleeding, Denies easy bruising and Denies lymphadenopathy Aller/Immun Denies wheezing Physical Exam Vital Signs: Last Vital Signs Pulse 77 09/12/24 14:36 BP 152/80 H 09/12/24 14:36 Pulse Ox 96 09/12/24 14:36 Oxygen Delivery Method Room Air 09/12/24 14:36 BMI result Body Mass Index 41.7 Const General: comfortable and no acute distress Orientation/consciousness: patient oriented x3 HEENT Other: Unremarkable Head: Yes normal to inspection Neck Neck: Yes normal visual inspection Chest Chest palpation & inspection: normal inspection of the chest Resp Effort & Inspection: normal respiratory effort Auscultation: diminished lung sounds Cardio Heart sounds: S1 normal heart sound present and S2 normal heart sound present GI Palpation (GI): Soft to palpation Back/Spine/Pelvis Other: unremarkable Skin General skin exam: no rashes or lesions noted Neuro General: patient oriented x3 Extrem General: Yes normal to inspection Psych Mental Status: mental status grossly normal Assessment & Plan Assessment & Plan (1) Asthma-COPD overlap syndrome: Code(s): J44.9 - Chronic obstructive pulmonary disease, unspecified Category: Medical (2) Nicotine dependence, cigarettes, uncomplicated: Comment: stopped smoking Code(s): F17.210 - Nicotine dependence, cigarettes, uncomplicated Category: Medical (3) Left upper lobe pulmonary nodule: Comment: (1.1 x 1.2 cm lesion in [place] - noted on 10/27/22 LDCT) Code(s): R91.1 - Solitary pulmonary nodule Category: Medical (4) Pulmonary emboli: Onset Date: ~02/2023 Code(s): I26.99 - Other pulmonary embolism without acute cor pulmonale Category: Medical Qualifiers: Pulmonary embolism type: single subsegmental (without acute cor pulmonale) Qualified Code(s): I26.93 - Single subsegmental pulmonary embolism without acute cor pulmonale (5) Post-thoracotomy pain syndrome: Code(s): G89.12 - Acute post-thoracotomy pain Category: Medical Plan continue Breo/Incruse EVELYN as needed continue tobacco cessation: retry Chantix no CPAP, using positional bed, sleeping elevated [facility] following lung cancer F/U 6-8 months Medications: New varenicline (Chantix Starting Month Box) PO PER PKG DIR 42 ea 0RF Refilled albuterol sulfate 90 mcg/actuation (Ventolin HFA) 2 puffs inhalation QID PRN 18 grams 11RF shortness of breath or wheezing 30 days umeclidinium 62.5 mcg/actuation (Incruse Ellipta) 1 inh inhalation DAILY 30 ea 11RF 30 days J45.909 - Unspecified asthma, uncomplicated fluticasone furoate-vilanterol 200-25 mcg/dose (Breo Ellipta) 1 inh inhalation DAILY 60 ea 11RF 30 days J45.909 - Unspecified asthma, uncomplicated Coding Level of Care Code Est Pt Level 4 (71961) Diagnoses Asthma-COPD overlap syndrome J44.9 Nicotine dependence, cigarettes, uncomplicated F17.210 Left upper lobe pulmonary nodule R91.1 Single subsegmental pulmonary embolism without acute cor pulmonale I26.93 Pulmonary embolism type: single subsegmental (without acute cor pulmonale) Post-thoracotomy pain syndrome G89.12 Time Spent (min) 16
== END 2024-09-12 16:04 | disposition home or self-care (01) ==
PROVIDERS: PCP Registered Nurse; Visit Provider Hospitalist
DX: J44.9 Chronic obstructive pulmonary disease, unspecified (principal); F17.210 Nicotine dependence, cigarettes, uncomplicated; R91.1 Solitary pulmonary nodule; I26.93 Single subsegmental thrombotic pulmonary embolism without acute cor pulmonale; G89.12 Acute post-thoracotomy pain
CPT/HCPCS: 99214

== ENCOUNTER → 2024-09-12 14:25 | Outpatient (BNVA) | payer MEDICAID, SELFPAY | PROVIDERS: PCP Registered Nurse; Visit Provider Hospitalist | DX: J44.9 Chronic obstructive pulmonary disease, unspecified (principal); I26.99 Other pulmonary embolism without acute cor pulmonale; R91.1 Solitary pulmonary nodule; G89.12 Acute post-thoracotomy pain; F17.210 Nicotine dependence, cigarettes, uncomplicated | CPT/HCPCS: 99212 ==

== ENCOUNTER 2024-11-07 16:06 | Outpatient (REF) | payer MEDICAID, SELFPAY ==
[2024-11-07 18:37] LABS: Alanine Aminotransferase 25 U/L (0-40); Albumin Level 4.4 g/dL (3.5-5.0); Alkaline Phosphatase 90 U/L (39-117); Anion Gap 12 (12-20); Aspartate Amino Transferase 26 U/L (5-37); Bilirubin Total 0.3 mg/dL (0.0-1.0); Blood Urea Nitrogen 17 mg/dL (9-16); Calcium 9.6 mg/dL (8.4-10.2); Carbon Dioxide 30 mmol/L (22-29); Chloride 103 mmol/L (96-108); Cholesterol 150 mg/dL (<200); Estimated Glomerular Filt Rate > 60; Glucose Random 89 mg/dL (60-115); HDL Cholesterol 71 mg/dL (>40); LDL Cholesterol Calculated 65 mg/dL (<100); Potassium 4.6 mmol/L (3.3-5.1); Sodium 140 mmol/L (135-145); Total Protein 8.1 g/dL (6.5-8.0); Triglycerides 74 mg/dL (<150)
[2024-11-07 18:52] LABS: TSH reflex Free T4 1.52 uIU/mL (0.32-4.0)
[2024-11-08 08:05] LABS: Estimated Average Glucose 117 mg/dL; Hemoglobin A1C 124.7996 umol/L; Hemoglobin A1c % 5.7 % (<6.0); Total Hemoglobin (HGBA1C) 3211.7423 umol/L
== END 2024-11-07 16:07 | disposition home or self-care (01) ==
LOC: HO.CHCLDS 16:06
PROVIDERS: Visit Provider Registered Nurse
DX: L03.116 Cellulitis of left lower limb (principal); E66.01 Morbid (severe) obesity due to excess calories
CPT/HCPCS: 36415; 80053; 80061; 83036; 84443; 87070; 87186; 87205

== ENCOUNTER 2024-12-11 14:36 | Outpatient (AMB) | payer MEDICAID, SELFPAY ==
[2024-12-11 14:52] VITALS: BP 150/78; PULSE 55; O2SAT 93; BMI 42.0
--- NOTE | 2024-12-11 14:52 | HO.NEPHOV_ITS ---
Vital Signs 12/11/24 14:52 Height 5 ft 8 in Weight 276 lb BMI 42.0 BP 150/78 H Blood Pressure Location Rt brachial Position Sitting Pulse 55 Pulse Source Pulse Oximeter Pulse Oximetry (%) 93 Oxygen Delivery Method Room Air Intake Visit Reasons: Proteinuria Naturopathic Doctor Required: No Accompanied by: Self / Same As Patient Allergies Penicillins [PENICILLINS] Allergy (Unknown, Verified 12/11/24 14:53) UNKNOWN Medication List - Last Reconciled 12/11/24 by Raj Galvin MD albuterol sulfate 90 mcg/actuation (Ventolin HFA) 2 puffs inhalation QID PRN 30 days duloxetine 60 mg PO DAILY fluticasone furoate-vilanterol 200-25 mcg/dose (Breo Ellipta) 1 inh inhalation DAILY 30 days furosemide 20 mg PO DAILY gabapentin 300 mg PO BID linaclotide (Linzess) 290 mcg PO QAM methadone 55 mg PO BEDTIME methadone 90 mg PO DAILY multivitamin 1 tab PO DAILY nicotine 1 patch topical DAILY PRN omeprazole 20 mg PO DAILY rosuvastatin 20 mg PO DAILY tirzepatide (weight loss) (Zepbound) mg subcut QWEEK trazodone 100 mg PO BEDTIME PRN umeclidinium 62.5 mcg/actuation (Incruse Ellipta) 1 inh inhalation DAILY 30 days varenicline tartrate (Chantix Starting Month Box) PO PER PKG DIR HPI Comments Details: Dru is a pleasant 59-year-old man with a history of obesity. He was found to have proteinuria. He was seen by urologist for microhematuria. He refused to have cystoscopy. Imaging studies have been unremarkable. Urine cytology has been negative. 01/09/2023-navigational bronchoscopy with biopsy, de Renuka left upper lobe wedge with completion segmentectomy, mediastinal lymphadenectomy?. He underwent left upper lobe which resection/segmentectomy on 01/09/[address] [facility]. Pathology revealed invasive adenocarcinoma, tumor size 2 x 1.5 x 1.1 cm, spread through air spaces identified, visceral pleural invasion not identified, margins negative. No regional lymph nodes identified. Pathological stage pT2a pNX. IHC revealed TTF1 positive, P 40 negative. NGS testing revealed PDL1 , TPS 4%, KRAS Exon 2 detected(p.G12R), ALK rearrangement not detected, BRAF mutation not detected, EGFR mutation not detected ROS1 negative. Positive for hepatitis-B core antibody. History of remote infection. He was made referral to GI, he no showed his appointment twice. PET scan performed 02/27/2023 showed postsurgical changes the left hemithorax without any FDG avid disease. No evidence of residual disease or metastatic disease. Patient presented at tumor Board (), as per discussion at tumor board, he has been recommended adjuvant chemotherapy since he has had inadequate surgery and staging of his lung cancer. He received 4 cycles of cis-[place]/pemetrexed which he completed on 06/11/2023. Pulmonary emboli, CTA 02/21/23 showed small filling defects in branches of right pulmonary artery no large embolus. He was on anticoagulation until December 2023 for postoperative pulmonary embolism. He continues to smoke cigarettes up to 5 a day. In the past he has smoked a pack and a half. He has obesity with a BMI of 45.6 Semaglutide was started at the end of 03/10/2024 04/08/24: Still smokes; NO new issues ; Takes Ibuprofen 800 mg daily 12/11/24 Overall doing well Has stopped taking Ibuprofen [facility] Medical History Pulmonary emboli Osteoarthritis Pleuritic chest pain Post-thoracotomy pain syndrome Asthma-COPD overlap syndrome Lung cancer (~2022) Nicotine dependence, cigarettes, uncomplicated Depression with anxiety Obesity DA (obstructive sleep apnea) Hepatitis C HLD (hyperlipidemia) Methadone maintenance therapy patient History of CVA (cerebrovascular accident) (~2008) Surgical History Hx of appendectomy History of lung surgery History of bilateral hip replacements History of carpal tunnel surgery History of left inguinal hernia repair History of esophagogastroduodenoscopy (EGD) History of colonoscopy Family History Father No problems noted. Mother Family history of high blood pressure Hx of diabetes insipidus Social History Household Members: None Housing: Apartment Do you presently have visiting nurse or other home services: Yes Alcohol intake: former Patient Tobacco Use Status: Current everyday Tobacco user Tobacco use type: Cigarette Cigarette Packs Per Day: 0.5 Cigarettes Per Day: 8 Years Smoked: (onset 13yo, 1ppd x 44yrs, now 3/4ppd, 40pyh) e-Cigarette/Vaping Use: Currently Using service: No Current occupational status: disabled Physical Exam Vital Signs: Last Vital Signs Pulse 55 12/11/24 14:52 BP 150/78 H 12/11/24 14:52 Pulse Ox 93 12/11/24 14:52 Oxygen Delivery Method Room Air 12/11/24 14:52 BMI result Body Mass Index 42.0 Const General: comfortable Nutritional Appearance: well nourished and obese Orientation/consciousness: patient oriented x3 HEENT Head: No normal to inspection Mouth: moist mucous membranes Neck Neck: Yes supple and Yes no JVD Resp Auscultation: clear to auscultation bilaterally and no rales Cardio Jugular venous distension: no JVD Palpation: no palpable S3 and no palpable S4 Heart sounds: no rubs GI Palpation (GI): Soft to palpation and nontender Percussion: No Fluid wave present General: Yes no CVA tenderness Back/Spine/Pelvis Back: no CVA tenderness Skin General skin exam: no rashes or lesions noted Neuro General: patient oriented x3 Extrem General: Yes no pedal edema and No clubbing Results Reviewed Nephrology Results: Hgb 11.5 g/dl (14.0-18.0) L 09/05/24 WBC 8.7 X10*3/uL (4.8-10.8) 09/05/24 Plt Count 252 X10*3/uL (160-400) 09/05/24 Sodium 140 mmol/L (135-145) 11/07/24 Potassium 4.6 mmol/L (3.3-5.1) 11/07/24 Chloride 103 mmol/L (96-108) 11/07/24 Carbon Dioxide 30 mmol/L (22-29) H 11/07/24 BUN 17 mg/dL (9-16) H 11/07/24 Creatinine 1.04 mg/dL (0.5-1.4) 11/07/24 Calcium 9.6 mg/dL (8.4-10.2) 11/07/24 Urine Protein 30 (1+) mg/dL (Neg-Trace) H 06/30/24 Urine Creatinine 67.06 mg/dL 06/30/24 Assessment & Plan Assessment & Plan (1) Proteinuria: Code(s): R80.9 - Proteinuria, unspecified Category: Medical Plan . Dru is a 59-year-old man with a history of obesity and lung cancer. Status post chemotherapy. He was found to have dipstick positive proteinuria and is here for further evaluation. Proteinuria is most likely due to obesity. No significant RBCs in the past. Glomerulonephritis or interstitial disease seem unlikely at this time. Urine Pro: cr is 275 mg Non nephrotic range No monoclonal proteins no monoclonal proteins No absolute indication for biopsy at this time Add Losartan 25 mg DAILY and titrate the dose ( 12/11/24) ( He has stopped using Ibuprofen) I discussed importance of weight loss. He is currently and semaglutide which should help with weight loss. I encouraged him to cut back on the calorie intake and increase his physical activity as well. He has mild CKD. in 2019, baseline creatinine was around 0.6 to 0.7 mg/dL. For the last 1 year serum creatinine has been staying around 1.1-1.3 mg/dL. s/p chemotherapy with [place]-based chemotherapy. For now we will continue to monitor renal function closely and avoid nephrotoxic agents. Orders: Orders Basic Metabolic Panel 1 Month R80.9 - Proteinuria, unspecified Creatinine Urine 6 Months R80.9 - Proteinuria, unspecified Total Protein Urine Random 6 Months R80.9 - Proteinuria, unspecified UA and rflx microscopic 6 Months R80.9 - Proteinuria, unspecified Medications: New losartan 25 mg PO DAILY 90 tabs 0RF Coding Level of Care Code Est Pt Level 4 (74860) Diagnoses Proteinuria R80.9
--- OUTSIDE RECORDS SUMMARY | 2024-12-11 15:45 | XMS_ITS | Clinical Summary ---
Author Organization [facility] Address [address] [place] [address] Phone Care Team Providers Care Equipment Service Associate Name Role Phone Morena Forte RN Primary Care Provider Immunizations Name Administration Dates Next Due Pfizer SARS-CoV-2 COVID-19, mRNA, LNP-S, preservative free 12/10/2020,11/19/2020 Surgical History Surgery Date Site/Laterality Comments HIP ARTHROPLASTY PROCEDURE: HISTORICAL HIP REPLACEMENT CARPAL TUNNEL RELEASE Bilateral PROCEDURE: HISTORICAL CARPAL TUNNEL REL COLONOSCOPY N/A PROCEDURE: HISTORICAL COLONOSCOPY HERNIA REPAIR PROCEDURE: HISTORICAL HERNIA REPAIR/ING APPENDECTOMY PROCEDURE: AL APPENDECTOMY Medical History Medical History Date Comments Depression with anxiety DX:Depre ssion with anxiety Viral hepatitis C without hepatic coma DX:Viral hepatitis C without hepatic coma H/O: CVA (cerebrovascular accident) DX:H/O: CVA (cerebrovascular accident) HLD (hyperlipidemia) DX:HLD (hyp erlipidemia) 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 ([facility]) DX:Methadone maintenance the rapy patient ([facility]) Nicotine dependence DX:Nicotine dependence Obesity DX:Obesity Sleep disorder breathing DX:Slee p disorder breathing COPD (chronic obstructive pu lmonary disease) ([facility]) DX:COPD (chronic obstructive pulmonary disease) ([facility]) Lung cancer ([facility]) DX:Lung ca ncer ([facility]) Mild intermittent asthma, uncomplicated DX:Mild intermittent asthma, uncomplicated Family History Medical History Relation Name Comments No Known Problems Father Diabetes Mother Hypertension Mother Relation Name Status Comments Father Mother Social History Tobacco Use Types Packs/Day Years Used Date Smoking Tobacco: Some Days Cigarettes 1 47.1 Started: 10/22/1977 Smokeless Tobacco: Never Alcohol Use Standard Drinks/Week Comments Never 0 (1 standard drink = 0.6 oz pur e alcohol) Sex and Gender Information Value Date Recorded Sex Assigned at Not on file Legal Sex Male 2:33 PM EST Gender Identity Not on file Sexual Orientation Not on file Obstetrics History Last Filed Vital Signs Vital Sign Reading Time Taken Comments Blood Pressure 142/72 08/14/2024 3:27 PM EDT Sit ting L Arm Pulse 64 08/14/2024 3:27 PM EDT Temperature - - Respiratory Rate - - Oxygen Saturation - - Inhaled Oxygen Concentration - - Weight 129 kg (284 lb) 08/14/2024 3:27 PM EDT Height 172.7 cm (5' 8 ) 08/14/2024 3:27 PM EDT Body Mass Index 43.18 08/14/2024 3:27 PM EDT Plan of Treatment Upcoming Encounters Date Type Department Care Team (Late st Contact Info) Description 01/23/2025 5:15 PM EDT Appointment [facility] Scan [address] [place] [address] Health Maintenance Due Date Last Done Comments DTaP,Tdap,and Td Vaccines (1 - Tdap) 02/05/1984 Hepatitis B Vaccines (1 of 3 - 19+ 3-dose series) 02/05/1984 Pneumococcal Vaccine: 50+ Years (1 of 2 - PCV) 02/05/1984 Pneumococcal Vaccine: Pediatrics (0 to 5 Years) and At-Risk Patients (6 to 64 Years) (1 of 2 - PCV) 02/05/1984 Zoster Vaccines (1 of 2) 2015 COVID-19 Vaccine (3 - Pfizer risk series) 01/07/2021 12/10/2020, 11/19/2020 Cholesterol Screening (Lipid Panel) 11/20/2023 Colorectal Cancer Screening: Colonoscopy 11/20/2023 Depression Screening 11/20/2023 HIV Screening 11/20/2023 Hepatitis C Screening 11/20/2023 Lung Cancer Screening (Low Dose CT) 11/20/2023 Social Influencers of Health Screening 11/20/2023 Influenza Vaccine (#1) 2024 RSV Immunization Patients 60 + Years Old (1 - 1-dose 75+ series) 02/05/2040 HIB Vaccines Aged Out No longer eligi ble based on patient's age to complete this topic HPV Vaccines Aged Out No longer eligi ble based on patient's age to complete this topic Hepatitis A Vaccines Aged Out No long er eligible based on patient's age to complete this topic IPV Vaccines Aged Out No longer eligi ble based on patient's age to complete this topic MMR Vaccines Aged Out No longer eligi ble based on patient's age to complete this topic Meningococcal ACWY Vaccine Aged Out N o longer eligible based on patient's age to complete this topic Meningococcal B Vacine Aged Out No lo nger eligible based on patient's age to complete this topic RSV Immunization Patients Under 20 months Aged Out No longer eligible b ased on patient's age to complete this topic Varicella Vaccines Aged Out No longer eligible based on patient's age to complete this topic Insurance MEDICAID - [place] Advance Directives Documents on File Type Date Recorded Patient Investment Specialist Expl anation Health Care Decision (hx) 08/04/2018 AD ORR DIRECTIVE Health Care Decision (hx) 08/04/2018 AD ORR DIRECTIVE Health Care Decision (hx) 08/04/2018 AD ORR DIRECTIVE Health Care Decision (hx) 08/04/2018 AD ORR DIRECTIVE Health Care Decision (hx) 08/04/2018 AD ORR DIRECTIVE Health Care Decision (hx) 08/04/2018 AD ORR DIRECTIVE Health Care Decision (hx) 08/04/2018 AD ORR DIRECTIVE Health Care Decision (hx) 08/04/2018 AD ORR DIRECTIVE Health Care Decision (hx) 08/04/2018 AD ORR DIRECTIVE Health Care Decision (hx) 08/04/2018 AD ORR DIRECTIVE Health Care Decision (hx) 08/04/2018 AD ORR DIRECTIVE Health Care Decision (hx) 08/04/2018 AD ORR DIRECTIVE Health Care Decision (hx) 08/04/2018 AD ORR DIRECTIVE Care Teams Equipment Service Associate Relationship Specialty Start Date End Date Morena Forte RN [address] [id number] PCP - General 03/12/24
--- OUTSIDE RECORDS SUMMARY | 2024-12-11 15:45 | XMS_ITS | Clinical Summary ---
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 (CMS/HCC) TSH W/REFLEX TO FT4 Routine 11/07/2024 4 :09 PM EST Severe obesity (CMS/HCC) LIPID PANEL, STANDARD Routine 11/07/2024 4:09 PM EST Severe obesity (CMS/HCC) HEMOGLOBIN A1C Routine 11/07/2024 4:09 PM EST Severe obesity (CMS/HCC) GRAM STAIN Routine 11/07/2024 3:49 PM EST ZZZ HISTORICAL HIV AB/AG Routine 12/05/2019 1:56 PM EST from Last 3 Months or Most Recently Relevant to Health Maintenance Results * TSH W/Reflex to FT4 (11/07/2024 4:09 PM EST) TSH reflex Free T4 1.52 0.32 - 4.0 uIU/mL [facility] Blood Venous blood specimen / Unknown 11/07/2024 4:09 PM EST 11/07/2024 5:50 PM EST Morena Forte [facility] BLOOD ORDERABLES Final Res ult [facility] [address] [place] [phone] * Hemoglobin A1c (11/07/2024 4:09 PM EST) Hemoglobin A1c 5.7 <6.0 % [facility] Comment:Hemoglobin A1C Refer ence Range Adults: 4.8 - 6.0 % Non diabetic: < 6.0 % Goal: < 7.0 %Additional Action Suggested: > 8.0 %Note: Hemoglobin A1c results are invalid for patients with abnormal amounts of HbF. Blood transfusions may impact the HbA1c concentration in the patient sample. Estimated Average Glucose 117 mg/dL [facility] Comment:eAG = Estimated ave rage glucose which is %A1C expressed asaverage glucose, using the formula of the L8C-JfagtzmBleihzp Glucose study (ADAG), Diabetes Care, Vol.31,#8,May. 2007 Blood Venous blood specimen / Unknown 11/07/2024 4:09 PM EST 11/07/2024 5:50 PM EST Morena Forte [facility] BLOOD ORDERABLES Final Res ult Performing Organization Address [facility] Co de Phone Number [facility] [address] [place] [address] [phone] * Lipid Panel, Standard (11/07/2024 4:09 PM EST) Triglycerides 74 <150 mg/dL [facility] Comment:Desirable Triglyceri de: less than 150 mg/dLBorderline High Triglyceride 150-199 mg/dLHigh Triglyceride: 200-499 mg/dLVery High Triglyceride: greater than or equal to 5OO mg/dL Cholesterol 150 <200 mg/dL [facility] Comment:Desirable Cholestero l: less than 200 mg/dLBorderline High Cholesterol: 200-239 mg/dLHigh Cholesterol: greater than 239 mg/dL LDL Cholesterol Calculated 65 <100 mg/dL [facility] Comment:Desirable LDL: less than 100 mg/dLNear Optimal/Above Optimal LDL: 110- 129 mg/dLBorderline High LDL: 130-159 mg/dLHigh LDL: 160-189 mg/dLVery High LDL: greater than or equal to 190 mg/dL HDL Cholesterol 71 >40 mg/dL [facility] Comment:Desirable HDL: great er than 40 mg/dL Note: This HDL assay may give artificially low results in patients with liver disease. Blood Venous blood specimen / Unknown 11/07/2024 4:09 PM EST 11/07/2024 5:50 PM EST Morena Forte [facility] BLOOD ORDERABLES Final Res ult Performing Organization Address [facility] Co de Phone Number [facility] [address] [place] [address] [phone] * (ABNORMAL) Comprehensive Metabolic Panel (11/07/2024 4:09 PM EST) Sodium 140 135 - 145 mmol/L [facility] Potassium 4.6 3.3 - 5.1 mmol/L [facility] Chloride 103 96 - 108 mmol/L [facility] Carbon Dioxide 30(H) 22 - 29 mmol/L [facility] Anion Gap 12 12 - 20 [facility] Urea Nitrogen (BUN) 17(H) 9 - 16 mg/dL [facility] Creatinine, Serum 1.04 0.5 - 1.4 mg/dL [facility] Estimated Glomerular Filt Rate >60 [facility] Comment:Chronic Kidney Disea se: Estimated GFR < 60 mL/min/[id number] Kidney Disease: Estimated GFR < 15 mL/min/1.73m2 Glucose 89 60 - 115 mg/dL [facility] Calcium 9.6 8.4 - 10.2 mg/dL [facility] Bilirubin, Total 0.3 0.0 - 1.0 mg/dL [facility] Aspartate Amino Transferase 26 5 - 37 U/L [facility] Alanine Aminotransferase 25 0 - 40 U/L [facility] Total Protein 8.1(H) 6.5 - 8.0 g/dL [facility] Albumin Level 4.4 3.5 - 5.0 g/dL [facility] Alkaline Phosphatase 90 39 - 117 U/L [facility] Blood Venous blood specimen / Unknown 11/07/2024 4:09 PM EST 11/07/2024 5:50 PM EST us Morena Forte [facility] BLOOD ORDERABLES Final Res ult Performing Organization Address City/State/[facility] Co de Phone Number [facility] [address] [place] [phone] * Gram stain (11/07/2024 3:49 PM EST) 11/07/2024 3:49 PM EST 11/07/2024 5:53 PM EST Comment:Calf Left Narrative [facility] - 11/12/2024 7:24 AM EST CELLULITIS OF LEFT LOWER EXTREMITY Gram stain results: No polys 2+ epithelial cells No organisms seen CELLULITIS OF LEFT LOWER EXTREMITY Routine Culture Report - external Routine Culture 1+ Mixed skin maribel Enterococcus faecalis Quant Org ID 1+ Enterococcus faecalis: Ampicillin <=2(S) Enterococcus faecalis: Vancomycin 1(S) Specimen Source: Calf Left us Morena Forte [facility] MICROBIOLOGY - GENERAL ORD ERABLES Final Result [facility] [address] [place] [phone] [phone] * HIV AB/AG (12/05/2019 1:56 PM EST) Pathologist [facility] HIV AG/AB NONREACTIVE [facility] Comment: HIV-1 p24 Ag and/or HIV-1/HIV-2 Ab not detected. ?? A test result that is nonreactive does not exclude the possibility of exposure to or infection with HIV-1 and/or HIV-2. Nonreactive results in this assay for individuals with prior exposure to HIV-1 and/or HIV-2 may be due to antigen and antibody levels that are below the limit of detection of this assay. ?? The [facility] Entry Level Lab Technician HIV Ag/Ab Combo assay result and supplemental assay results should be interpreted in conjunction with the patient's clinical presentation, history and other laboratory results. ??If the results are inconsistent with clinical evidence, additional testing is suggested to confirm the result. 12/05/2019 1:56 PM EST us Yves Martin MD HISTORICAL/NON ORDERABLE LABS Fi nal Result Performing Organization Address City/[facility] Co de Phone Number [facility] [address] from Last 3 Months or Most Recently Relevant to Health Maintenance Insurance [facility] STANDARD Care Teams Sample Worker Relationship Specialty Start Date End Date Morena Forte FNP [address] [place] [phone] PCP - General Family Medicine 09/27/22 Jeremiah Humphrey Community Health Worker 04/18/24 Raj Galvin MD 100 [facility] 200 [place] [address] Nephrology 08/25/24 Ely Mesa [address] [place] [address] Thoracic Surgery 08/25/24
--- OUTSIDE RECORDS SUMMARY | 2024-12-11 15:46 | XMS_ITS | Encounter Summary ---
Author Organization [employer] Address 75 [facility] 7t [place] [address] Care Team Providers Care Motor Vehicle Dispatcher Name Role Phone Morena Forte Primary Care Provider Jeremiah Humphrey Unavailable Unavailable Raj Galvin MD Unavailable [phone] Ely Mesa Unavailable Reason for Visit * Reason Comments Med Refill Encounter Details Date Type Department Care Team (Late st Contact Info) Description 05/13/2024 Refill [facility] MEDICINE [address] [place] [address] Morena Forte FNP [address] [place], [place] [phone] Social History Tobacco Use Types Packs/Day Years Used Date Smoking Tobacco: Every Day Cigarettes Smokeless Tobacco: Never Comments:Was smoking a box a day/week. Cut back to 4-5 a day. Alcohol Use Standard Drinks/Week Comments Never 0 (1 standard drink = 0.6 oz pur e alcohol) Depression Answer Date Recorded Patient Health Questionnaire-9 Score 0 06/08/2023 Housing Stability Answer Date Recorded What is your housing situation today? I have arabella orozco 08/06/[address] you [...] Answer Date Recorded Patient Health Questionnaire-2 Score 0 06/08/2023 Sex and Gender Information Value Date Recorded Sex Assigned at Male 08/21/2022 10:36 AM EDT Legal Sex Male 10:36 AM EDT Gender Identity Male 08/21/2022 10:36 AM EDT Sexual Orientation Choose not to disclose 2021 10:36 AM EDT documented as of this encounter Plan of Treatment Upcoming Encounters Date Type Department Care Team (Late st Contact Info) Description 01/09/2025 10:00 AM EDT Office Visit [facility] MED & PEDS [address] [place] [address] Morena Forte FNP [address] [place] [address] documented as of this encounter Goals Goal Patient Goal Type Associated Problems Recent Progress Patient-Stated? Author Blood Pressure < 140/90 Blood Pressure 162/98( 025 10:18 AM EST) No Eve Oliveira, PharmD documented as of this encounter Visit Diagnoses Not on filedocumented in this encounter Additional Health Concerns Assessment Noted Time PHQ-9 Depression Total Score: 0 06/08/20 23 1:16 PM EDT documented as of this encounter Care Teams Motor Vehicle Dispatcher Relationship Specialty Start Date End Date Morena Forte FNP [address] [place] [address] PCP - General Family Medicine 09/27/22 Jeremiah Humphrey Community Health Worker 04/18/24 Raj Galvin MD 100 [facility] 200 [place] [address] Nephrology 08/25/24 Ely Mesa [address] [place] [phone] Thoracic Surgery 08/25/24 documented as of this encounter
--- OUTSIDE RECORDS SUMMARY | 2024-12-11 15:46 | XMS_ITS | Encounter Summary ---
Author Organization [employer] Address 75 [facility] 7t [place] [address] Care Team Providers Care Rate Examiner Name Role Phone Morena Forte Primary Care Provider [phone] Jeremiah Humphrey Unavailable Unavailable Raj Galvin MD Unavailable [phone] Ely Mesa Unavailable Reason for Visit * Reason Comments Care Coordination Outreach Encounter Details Date Type Department Care Team (Latest Contact Info) Description 11/19/2024 Patient Outreach [facility] MED & PEDS [address] [place], [place] [phone] Morena Forte FNP [address] [place], [place] [phone] Care Coordination (Outreach ) Social History Tobacco Use Types Packs/Day Years [...] AM EDT documented as of this encounter Progress Notes * Chanel Vega - 11/19/2024 9:11 AM EST CHW Chanel Vega, placed outbound call to patient introducing herself from [facility], in regards to offering services. Patient's name and was confirmed. Patient agrees to participate in program. Appt. for initial assessment scheduled for 11/25/24 @ 10:00 AM. Patient willneed transportation for appointments. CHW reinforced direct contact information or for any additional questions or concerns and extended clinic hours on Mondays and Wednesdays, and Walk-In Urgent Care Located in Lobby of [facility]. Patient provided with after-hours line for [facility], , which offer night time triage service and option to transfer to human resources compensation analyst provider if needed. Patient verbalizes understanding, and able to repeat back to production underwriter documented in this encounter Plan of Treatment Upcoming Encounters Date Type Department Care Team (Late st Contact Info) Description 01/09/2025 10:00 AM EDT Office Visit [facility] MED & PEDS [address] [place] [address] Morena Forte FNP [address] [place] [address] documented as of this encounter Goals Goal Patient Goal Type Associated Problems Recent Progress Patient-Stated? Author Blood Pressure < 140/90 Blood Pressure 162/98( 025 10:18 AM EST) No Eve Oliveira, RomeroD documented as of this encounter Visit Diagnoses Not on filedocumented in this encounter Additional Health Concerns Assessment Noted Time PHQ-9 Depression Total Score: 8 06/30/20 24 11:12 AM EDT documented as of this encounter Care Teams Rate Examiner Relationship Specialty Start Date End Date Morena Forte FNP [address] [place] [address] PCP - General Family Medicine 09/27/22 Jeremiah Humphrey Community Health Worker 04/18/24 Raj Galvin MD 100 [facility] 200 [place] [address] Nephrology 08/25/24 Ely Mesa [address] [place] [phone] Thoracic Surgery 08/25/24 documented as of this encounter
--- OUTSIDE RECORDS SUMMARY | 2024-12-11 15:46 | XMS_ITS | Encounter Summary ---
Author Organization [employer] Address 75 [facility] 7t [place] [address] Care Team Providers Care Benefits Counselor Name Role Phone Morena Forte Primary Care Provider [phone] Jeremiah Humphrey Unavailable Unavailable Raj Galvin MD Unavailable [phone] Ely Mesa Unavailable Reason for Visit * Reason Onset Date Comments PT1 02/26/2023 Encounter Details Date Type Department Care Team (Late st Contact Info) Description 02/26/2023 Telephone [facility] [address] [place] [address] Morena Forte FNP [address] [place], [place] [phone] PT1 Social History Tobacco Use Types Packs/Day Years [...] not to disclose 2021 10:36 AM EDT COVID-19 Exposure Response Date Recorded In the last 10 days, have yo u been in contact with someone who was confirmed or suspected to have Coronavirus/COVID-19? No / Unsure 02/19/2023 3:01 PM EDT documented as of this encounter Miscellaneous Notes * Telephone Encounter - Yi Kingston - 03/20/2023 11:02 AM EDT Patient will recieve approval / denial letter via mail. PT-1 Request [id number] Pending - [facility] 230 [facility] [address] PT-1 Request [id number] Pending - [facility] [employer] 60 [facility] [address] PT-1 Request [id number] Pending - [facility] [address] [facility] [address] PT-1 Request [id number] Pending - [facility] General Surgeons [address] [place] [address] [place] [address] * Telephone Encounter - Yi Kingston - 03/20/2023 10:05 AM EDT Patient will recieve approval / denial letter via mail. PT-1 Request [id number] Pending - [facility] 230 [facility] [address] PT-1 Request [id number] Pending - [facility] [employer] 60 [facility] [address] PT-1 Request [id number] Pending - [facility] [address] [facility] [address] * Telephone Encounter - Radha Turk - 02/26/2023 8:40 AM EDT Tc from pt requesting to renew PT1 forms that On February: PT1 Name of facility: [facility] Specialty: ALL FUTURE APPT's Location: 230 [place] [address] Date: n/a Time: n/a fax: n/a Phone: n/a wheelchair: n/a Male Impersonator: n/a PT1 Name of facility: [facility] Specialty: ALL FUTURE APPT's Location: [address] [place] [address] Date: n/a Time: n/a fax: n/a Phone: n/a wheelchair: n/a Male Impersonator: n/a PT1 Name of facility: [facility] Specialty: ALL FUTURE APPT's Location: 60 [facility] [place] [facility], [place] [address] Date: n/a Time: n/a fax: n/a Phone: n/a wheelchair: n/a Male Impersonator: n/a PT1 Name of facility: [facility] General Surgeons Specialty: ALL FUTURE APPT's Location: [address] [place], [place] [address] [address] Date: n/a Time: n/a fax: n/a Phone: n/a wheelchair: n/a Male Impersonator: n/a FOR ALL FUTURE APPT's!! Please contact pt at [phone] documented in this encounter Plan of Treatment Upcoming Encounters Date Type Department Care Team (Late st Contact Info) Description 01/09/2025 10:00 AM EDT Office Visit [facility] MED & PEDS 505 [place] [address] Morena Forte FNP 505 [place] [address] documented as of this encounter Visit Diagnoses Not on filedocumented in this encounter Care Teams Benefits Counselor Relationship Specialty Start Date End Date Morena Forte FNP [address] [place] [address] PCP - General Family Medicine 09/27/22 Jeremiah Humphrey Community Health Worker 04/18/24 Raj Galvin MD 100 [facility] 200 [place] [address] Nephrology 08/25/24 Ely Mesa [address] [place] [phone] Thoracic Surgery 08/25/24 documented as of this encounter
--- OUTSIDE RECORDS SUMMARY | 2024-12-11 15:46 | XMS_ITS | Encounter Summary ---
Author Organization [employer] Address [address] [facility] [address] 7t [place] [address] Care Team Providers Care Exchange Architect Name Role Phone Cyndiroyer Morena TERI Primary Care Provider [phone] Jeremiah Humphrey Unavailable Unavailable Raj Galvin MD Unavailable [phone] Ely Mesa Unavailable Encounter Details Date Type Department Care Team (Latest Contact Info) Description 11/11/2024 Travel Social History Tobacco Use Types Packs/Day Years [...] Description 01/09/2025 10:00 AM EDT Office Visit [facility] MED & PEDS [address] [place] [address] Morena Forte FNP 505 [place] [address] documented as of this encounter Goals Goal Patient Goal Type Associated Problems Recent Progress Patient-Stated? Author Blood Pressure < 140/90 Blood Pressure 162/98( 025 10:18 AM EST) No Piers-Gambl Eve delgado, PharmD documented as of this encounter Visit Diagnoses Not on filedocumented in this encounter Additional Health Concerns Assessment Noted Time PHQ-9 Depression Total Score: 8 06/30/20 24 11:12 AM EDT documented as of this encounter Care Teams Exchange Architect Relationship Specialty Start Date End Date Morena Forte FNP [address] [place] [address] PCP - General Family Medicine 09/27/22 Jeremiah Humphrey Community Health Worker 04/18/24 Raj Galvin MD [address] [phone] Nephrology 08/25/24 Ely Mesa [address] [place] [phone] Thoracic Surgery 08/25/24 documented as of this encounter
--- OUTSIDE RECORDS SUMMARY | 2024-12-11 15:46 | XMS_ITS | Encounter Summary ---
Author Organization [employer] Address 75 [facility] 7t [place] [address] Care Team Providers Care Dietary Services Director Name Role Phone Morena Forte Primary Care Provider [phone] Jeremiah Humphrey Unavailable Unavailable Raj Galvin MD Unavailable Ely Mesa Unavailable Reason for Visit * Reason Onset Date Comments Nurse Triage 11/22/2023 Encounter Details Date Type Department Care Team (Late st Contact Info) Description 11/22/2023 Telephone [facility] MEDICINE [address] [place] [address] Morena Forte FNP [address] [place], [place] [phone] Nurse Triage Social History Tobacco Use Types Packs/Day Years [...] from getting things needed for daily living? No 08/06/2023 Utilities Answer Date Recorded In the past [...] AM EDT documented as of this encounter Miscellaneous Notes * Telephone Encounter - Malou Andrea - 11/22/2023 11:20 AM EST Symptoms: Back Pain - Not From Injury, Sleeping Difficulty Outcome: Schedule an appointment to be seen within 24 hours Reason: Caller denied all higher acuity questions The caller accepted this outcome documented in this encounter Plan of Treatment Upcoming Encounters Date Type Department Care Team (Late st Contact Info) Description 01/09/2025 10:00 AM EDT Office Visit [facility] MED & PEDS [address] [place] [address] Morena Forte FNP 505 [place] [address] documented as of this encounter Goals Goal [...] documented as of this encounter Care Teams Dietary Services Director Relationship Specialty Start Date End Date Morena Forte FNP [address] [place] [address] PCP - General Family Medicine 09/27/22 Jeremiah Humphrey Community Health Worker 04/18/24 Raj Galvin MD 100 [facility] 200 [place] [phone] Nephrology 08/25/24 Ely Mesa [address] [place] [phone] Thoracic Surgery 08/25/24 documented as of this encounter
--- OUTSIDE RECORDS SUMMARY | 2024-12-11 15:46 | XMS_ITS | Encounter Summary ---
Author Organization [employer] [facility] Address 75 [facility] 7t [place] [address] Care Team Providers Care Act English Tutor Name Role Phone Morena Forte Primary Care Provider [phone] Jeremiah Humphrey Unavailable Unavailable Raj Galvin MD Unavailable [phone] Ely Mesa Unavailable Reason for Visit * Reason Onset Date Comments Medication Question 02/23/2023 Other 02/23/2023 Encounter Details Date Type Department Care Team ([facility] st Contact Info) Description 02/23/2023 Telephone [facility] MEDICINE [address] [place] [address] Morena Forte FNP [address] [place], [place] [phone] Medication Question; Other Social History Tobacco Use Types Packs/Day Years [...] encounter Miscellaneous Notes * Telephone Encounter - Liberty Zaidi - 02/23/2023 10:02 AM EDT Tc from patient calling to inform PCP he is currently at [facility] since 02/20/23 admitted due to breathingtrouble. Patient is due to discharge today but has not yet. Patient is requesting a call back, in regards to medication questions. No other details provided. documented in this encounter Plan of Treatment Upcoming Encounters Date Type Department Care Team (Late st Contact Info) Description 01/09/2025 10:00 AM EDT Office Visit [facility] MED & PEDS 505 [place] [address] Morena Forte FNP [address] [place] [address] documented as of this encounter Visit Diagnoses Not on filedocumented in this encounter Care Teams Act English Tutor Relationship Specialty Start Date End Date Morena Forte FNP 230 [place] [address] PCP - General Family Medicine 09/27/22 Jeremiah Humphrey Community Health Worker 04/18/24 Raj Galvin MD [address] [facility] 200 [place] [address] Nephrology 08/25/24 Ely Mesa [address] [place] [phone] Thoracic Surgery 08/25/24 documented as of this encounter
--- OUTSIDE RECORDS SUMMARY | 2024-12-11 15:46 | XMS_ITS | Encounter Summary ---
Author Organization [employer] Address 75 [facility] 7t [place] [address] Care Team Providers Care Certified Medication Aide Name Role Phone Morena Forte Primary Care Provider [phone] Jeremiah Humphrey Unavailable Unavailable Raj Galvin MD Unavailable [phone] E[address]a Unavailable Reason for Visit * Reason Onset Date Comments PT1 05/29/2023 Encounter Details Date Type Department Care Team (Late st Contact Info) Description 05/29/2023 Telephone [facility] MEDICINE 230 [place] [address] Morena Forte FNP [address] [place], [place] [phone] PT1 Social History Tobacco Use Types Packs/Day [...] * Telephone Encounter - Liberty Zaidi - 05/29/2023 2:47 PM EDT PT1 Address verified Date: 06/18/23 Time: 11 am Visits: Address: [place] [address] Facility: Wheel Chair: n/a Rn Otolaryngology Needed: no *Patient states PCP needs to request for patient to only get picked up in a van due to his hip and unable to fit comfortably in a sedan. Patient states prior PCP had one in place but it has . PT1 Address verified Date: 06/19/23 Time: 11:30 am Visits: Address: [place] [address] Facility: Wheel Chair: n/a Rn Otolaryngology Needed: no documented in this encounter Plan of Treatment Upcoming Encounters Date Type Department Care Team (Late st Contact Info) Description 01/09/2025 10:00 AM EDT Office Visit [facility] MED & PEDS 505 [place] [address] Morena Forte FNP 505 [place] [address] documented as of this encounter Visit Diagnoses Not on filedocumented in this encounter Additional Health Concerns Assessment Noted Time PHQ-9 Depression Total Score: 16 023 9:44 AM EDT documented as of this encounter Care Teams Certified Medication Aide Relationship Specialty Start Date End Date Morena Forte FNP [address] [place] [address] PCP - General Family Medicine 09/27/22 Jeremiah Humphrey Community Health Worker 04/18/24 Raj Galvin MD 100 [facility] 200 [place] [address] Nephrology 08/25/24 Ely Mesa [address] [place] [address] Thoracic Surgery 08/25/24 documented as of this encounter
--- OUTSIDE RECORDS SUMMARY | 2024-12-11 15:46 | XMS_ITS | Encounter Summary ---
Author Organization [employer] [facility] [employer] Address 75 [facility] 7t [place] [address] Care Team Providers Care Analog Ic Design Architect Name Role Phone Morena Forte Primary Care Provider [phone] Jeremiah Humphrey Unavailable Unavailable Raj Galvin MD Unavailable [phone] Unavailable Encounter Details Date Type Department Care Team ([facility] st Contact Info) Description 01/18/2023 Telephone [facility] MEDICINE 230 [place] [address] Morena Forte FNP 505 [place], [place] [phone] Social History Tobacco Use Types Packs/Day Years Used Date Smoking Tobacco: Every Day Cigarettes Smokeless Tobacco: Never Comments:Was smoking a box a day/week. Cut back to 6-7 a day. Alcohol Use Standard Drinks/Week Comments [...] suspected to have Coronavirus/COVID-19? No / Unsure 01/17/2023 2:10 PM EDT documented as of this encounter Plan of Treatment Upcoming Encounters Date Type Department Care Team (Late st Contact Info) Description 01/09/2025 10:00 AM EDT Office Visit [facility] MED & PEDS 505 [place], [place] [phone] Morena Forte FNP 505 [place] [address] documented as of this encounter Visit Diagnoses Not on filedocumented in this encounter Care Teams Analog Ic Design Architect Relationship Specialty Start Date End Date Morena Forte FNP 230 [place] [address] PCP - General Family Medicine 09/27/22 Jeremiah Humphrey Community Health Worker 04/18/24 Raj Galvin MD 100 [facility] 200 [place] [address] Nephrology 08/25/24 Ely Mesa [address] [place] [address] Thoracic Surgery 08/25/24 documented as of this encounter
--- OUTSIDE RECORDS SUMMARY | 2024-12-11 15:46 | XMS_ITS | Encounter Summary ---
Author Organization [employer] Address 75 [facility] 7t [place] [address] Care Team Providers Care Lineworker Name Role Phone Morena Forte Primary Care Provider [phone] Jeremiah Humphrey Unavailable Unavailable Raj Galvin MD Unavailable [phone] Unavailable Reason for Visit * Reason Onset Date Comments PT1 11/26/2024 Encounter Details Date Type Department Care Team (Late st Contact Info) Description 11/26/[address] [facility] MEDICINE 230 [place] [address] Morena Forte FNP [address] [place], [place] [phone] PT1 Social History Tobacco Use Types Packs/Day [...] encounter Miscellaneous Notes * Telephone Encounter - Cris Sweeney - 11/26/2024 9:44 AM EST Patient calling requesting PT1 December 09, 1:00PM Home Address verified: Y/N: Yes Provider name or facility name: [address] [address]. Escort needed: Y/N: No Do you have a wheelchair: Y/N: No (cane) If yes- Manual or electric: N/A Visits: (2x monthly) documented in this encounter Plan of Treatment Upcoming Encounters Date Type Department Care Team (Late st Contact Info) Description 01/09/2025 10:00 AM EDT Office Visit [facility] MED & PEDS [address] [place] [address] Morena Forte FNP [address] [place] [address] documented as of this encounter Goals Goal Patient Goal Type Associated Problems Recent Progress Patient-Stated? Author Blood Pressure < 140/90 Blood Pressure 162/98( 025 10:18 AM EST) Eve Bailey, RomeroD documented as of this encounter Visit Diagnoses Not on filedocumented in this encounter Additional Health Concerns Assessment Noted Time PHQ-9 Depression Total Score: 8 06/30/20 24 11:12 AM EDT documented as of this encounter Care Teams Lineworker Relationship Specialty Start Date End Date Morena Forte FNP [address] [place] [address] PCP - General Family Medicine 09/27/22 Jeremiah Humphrey Community Health Worker 04/18/24 Raj Galvin MD [address] [address] Nephrology 08/25/24 Ely Mesa [address] [place] [address] Thoracic Surgery 08/25/24 documented as of this encounter
--- OUTSIDE RECORDS SUMMARY | 2024-12-11 15:46 | XMS_ITS | Encounter Summary ---
Author Organization [employer] Address 75 [facility] 7t [place] [address] Care Team Providers Care Religious Assistant Name Role Phone Morena Forte Primary Care Provider [phone] Jeremiah Humphrey Unavailable Unavailable Raj Galvin MD Unavailable [phone] Unavailable Reason for Visit * Reason Comments Care Coordination Outreach Encounter Details Date Type Department Care Team (Latest Contact Info) Description 11/14/2024 Patient Outreach [facility] MED & PEDS 505 [place], [place] [phone] Morena Forte FNP [address] [place], [place] [phone] Care Coordination (Outreach) Social History Tobacco Use Types Packs/Day Years [...] encounter Progress Notes * Chanel Vega - 11/14/2024 10:10 AM EST CHW Chanel Vega , placed outbound call to patient in regards to offer services. CHW introducing herself from [facility] CM Department with CHW's name, department and direct contact [phone] requesting call back. Will re-attempt to contact within 5 days. and address not confirmed. documented in this encounter Plan of Treatment Upcoming Encounters Date Type Department Care Team ([facility] st Contact Info) Description 01/09/2025 10:00 AM EDT Office Visit [facility] MED & PEDS 505 [place] [address] Morena Forte FNP 505 [place] [address] documented as of this encounter Goals Goal [...] documented as of this encounter Care Teams Religious Assistant Relationship Specialty Start Date End Date Morena Forte FNP [address] [place] [address] PCP - General Family Medicine 09/27/22 Jeremiah Humphrey Community Health Worker 04/18/24 Raj Galvin MD [address] [place] [phone] Nephrology 08/25/24 Ely Mesa [address] [place] [address] Thoracic Surgery 08/25/24 documented as of this encounter
--- OUTSIDE RECORDS SUMMARY | 2024-12-11 15:46 | XMS_ITS | Encounter Summary ---
Author Organization [employer] Address 75 [facility] 7t [place] [address] Care Team Providers Care Asset Availability Leader Name Role Phone Morena Forte Primary Care Provider [phone] Jeremiah Humphrey Unavailable Unavailable Raj Galvin MD Unavailable [phone] Ely eMsa Unavailable Reason for Visit * Reason Comments Care Coordination Outreach Encounter Details Date Type Department Care Team (Latest Contact Info) Description 11/12/2024 Patient Outreach [facility] MED & PEDS 505 [place], [place] [phone] Morena Forte FNP [address] [place], [place] [phone] Care Coordination (Outreach) Social History Tobacco Use [...] encounter Progress Notes * Chanel Vega - 11/12/2024 2:45 PM EST CHW Chanel Hernandez placed outreach call to facility [facility], as patient stratified on ADT Feed as admitted on 11/12/2024. CHW introduced herself calling from [facility], calling in regards to assist with discharge plan for patient. Patient's name and confirmed. Per floornurse, patient continues admitted, and no current discharge plan at this time. Floor nurse took CHWs contact information to provide it to their discharge nurse once patient has a plan of discharge. CHW will re-attempt reaching back to patient within the next 2 days if no call is returned by then. documented in this encounter Plan of Treatment Upcoming Encounters Date Type Department Care Team (Late st Contact Info) Description 01/09/2025 10:00 AM EDT Office Visit [facility] MED & PEDS 505 [place] [address] Morena Forte FNP 505 [place] [address] documented as of this encounter Goals Goal [...] documented as of this encounter Care Teams Asset Availability Leader Relationship Specialty Start Date End Date Morena Forte FNP [address] [place] [address] PCP - General Family Medicine 09/27/22 Jeremiah Humphrey Community Health Worker 04/18/24 Raj Galvin MD [address] [address] Nephrology 08/25/24 Ely Mesa [address] [place] [address] Thoracic Surgery 08/25/24 documented as of this encounter
--- OUTSIDE RECORDS SUMMARY | 2024-12-11 15:46 | XMS_ITS | Encounter Summary ---
Author Organization [employer] Address 75 [facility] 7t [place] [address] Care Team Providers Care Lift Mechanic Name Role Phone Morena Forte Primary Care Provider [phone] Jeremiah Humphrey Unavailable Unavailable Raj Galvin MD Unavailable [phone] Unavailable Reason for Visit * Reason Comments Transition Of Care (Tcm) Encounter Details Date Type Department Care Team (Late st Contact Info) Description 11/14/2024 Patient Outreach [facility] MEDICINE 230 [place] [address] Morena Forte FNP [address] [place] [address] Transition Of Care (Tcm) Social History Tobacco Use Types Packs/Day Years [...] as of this encounter Miscellaneous Notes * Significant Event - Rhonda Ibarra - 11/14/2024 8:55 AM EST 11/14/24 0854 Hospital Discharges and Admission for [facility] Type of Visit Hospital Admission Date of Admission/Visit 11/11/24 Date of Discharge 11/13/24 Facility [facility] Diagnosis inpatient/ celullitis Disposition Discharged Home Follow-Up Actions Follow-Up Needed Provider appointment Follow-Up Outcome Spoke to Patient Initial Contact Date 11/14/24 SANDY Ellis placed outbound call to patient for HDF outreach. Patient's name and were confirmed. Patient educated on the importance of follow up with provider following inpatient admission. Patientoffered an HDF appt. Patient decline due to existing follow up visit with PCP Patient provided witheducation on contacting the Health Center with any questions or concerns prior to the scheduled appointment. Patient educated on extended clinic hours on Mondays and Wednesdays, and Walk-In Urgent Care Located in [facility] of [facility]. Patient provided with after-hours line for [facility], , which offer night time triage service and option to transfer to university extension specialist provider if needed. [facility] discharge summary has been scanned into chart for review documented in this encounter Plan of Treatment Upcoming Encounters Date Type Department Care Team (Late st Contact Info) Description 01/09/2025 10:00 AM EDT Office Visit [facility] MED & PEDS 505 [place], [place] [phone] Morena Forte FNP 505 [place], [place] [phone] documented as of this encounter Goals Goal [...] documented as of this encounter Care Teams Lift Mechanic Relationship Specialty Start Date End Date Morena Forte FNP [address] [place] [address] PCP - General Family Medicine 09/27/22 Jeremiah Humphrey Community Health Worker 04/18/24 Raj Galvin MD 100 [facility] 200 [place] [phone] Nephrology 08/25/24 Ely Mesa [address] [place] [address] Thoracic Surgery 08/25/24 documented as of this encounter
--- OUTSIDE RECORDS SUMMARY | 2024-12-11 15:46 | XMS_ITS | Encounter Summary ---
Author Organization [employer] Address 75 [facility] 7t [place] [address] Care Team Providers Care General Adjuster Name Role Phone Morena Forte Primary Care Provider [phone] Jeremiah Humphrey Unavailable Unavailable Raj Galvin MD Unavailable [phone] E[address] Unavailable Reason for Visit * Reason Onset Date Comments Nurse Triage 05/31/2023 Encounter Details Date Type Department Care Team (Late st Contact Info) Description 05/31/2023 Telephone [facility] MEDICINE 230 [place] [address] Morena Forte FNP [address] [place] [address] Nurse Triage Social History Tobacco Use Types [...] encounter Miscellaneous Notes * Telephone Encounter - Rola Cason RN - 06/01/2023 9:15 AM EDT Call to YOLY Allen, advised of order for UA complete with reflex to . Tiffany [facility]. Tiffany will obtain UA beginning of next week and will drop off at [facility] lab. Verbal order for UA given. Thank you. * Telephone Encounter - TERI Steele - 05/31/2023 8:04 PM EDT Placed order for UA complete with reflex to . Sent to [facility]. Please let YOLY Allen know. Thank you. * Telephone Encounter - Rola Cason RN - 05/31/2023 5:21 PM EDT Triage call Pt reports urinating with bubbles evident like the amount of bubbles you get when you wash your hands with soap. . Pt denies discomfort, neg for burning with urination, color is yellow, no odor, no cloudiness. Advised Pt to come to [facility] but, Pt reports needs 3 days for transportation.Advised Pt will contact PCP for order for U/A, C+S and will contact YOLY Allen to obtain specimen athome. Pt agreed with this plan. Call to Tiffany after her working hours left message will call in morning. Protocol Used: Urinary Symptoms (Adult) Protocol-Based Disposition: See in Office or Video Visit within 2 Weeks Positive Triage Question: * All other urine symptoms * All higher-acuity triage questions were negative Care Advice Discussed: * Reasons To Call Back - Fever occurs - Pain or burning with urination - Unable to urinate and bladder feels full - You become worse * Telephone Encounter - Briana Balbuena - 05/31/2023 4:46 PM EDT Symptom: Urine Symptoms Outcome: Schedule a same-day appointment or talk to a nurse or provider today Reason: Caller denied all higher acuity questions The caller accepted this outcome Tiffany FREDERICK states that pt informs urine is very dark urine and has been having symptoms for a few days. Please contact pt at [phone] Or YOLY Allen at [phone] documented in this encounter Plan of Treatment Upcoming Encounters Date Type Department Care Team ([facility] st Contact Info) Description 01/09/2025 10:00 AM EDT Office Visit [facility] MED & PEDS 505 [place] [address] Morena Forte FNP 505 [place] [address] documented as of this encounter Goals Goal Patient Goal Type Associated Problems Recent Progress Patient-Stated? Author Blood Pressure < 140/90 Blood Pressure 162/98( 025 10:18 AM EST) No Eve Oliveira, Sharon documented as of this encounter Procedures Procedure Name Priority Date/Time Associated Diagnosis Comments URINALYSIS, COMPLETE, WITH REFLEX TO CULTURE Routine 06/08/2023 2:08 PM EDT Foamy urine documented in this encounter Results * (ABNORMAL) Urinalysis, Complete, with Reflex to Culture (06/08/2023 2:08 PM EDT) Color Urine Yellow [facility] Appearance Urine Clear [facility] PH 6.0 5.0 - 9.0 [facility] Glucose Urine UA Negative Negative mg/dL [facility] Urine Blood Trace(A) Negative [facility] Specific Exmore - Urine 1.010 1.005 - 1.025 [facility] Urine Protein 30 (1+)(A) Neg-Trace mg/dL [facility] Urine Ketones Negative Negative mg/dL [facility] Nitrite Urine Negative Negative [facility] Leukocyte Esterase Urine Moderate (2+)(A) Negative [facility] RBC Urine 3-5(A) 0 - 2 /HPF [facility] Urine WBC 21-50(A) 0 - 5 /HPF [facility] Urine Squamous Epithelial Cell 0-2 0 - 2 /HPF [facility] Urine Bacteria None Seen None Seen [facility] Hyaline Casts, Urine 0-2 0 - 2 /LPF [facility] 06/08/2023 2:08 PM EDT 06/08/2023 5:46 PM EDT Narrative [facility] - 06/08/2023 6:26 PM EDT Urine, Clean Catch us Morena Forte CODING SPEC LAB URINE ORDERABLES Final Res ult [facility] [address] [place] [address] [phone] documented in this encounter Visit Diagnoses Diagnosis Foamy urine- Primary Other nonspecific finding on examination of urine documented in this encounter Additional Health Concerns Assessment Noted Time PHQ-9 Depression Total Score: 16 023 9:44 AM EDT documented as of this encounter Care Teams General Adjuster Relationship Specialty Start Date End Date Morena Forte FNP 230 [place] [address] PCP - General Family Medicine 09/27/22 Jeremiah Humphrey Community Health Worker 04/18/24 Raj Galvin MD 100 [facility] 200 [place] [address] Nephrology 08/25/24 [address] Mesa [address] [place] [address] Thoracic Surgery 08/25/24 documented as of this encounter
--- OUTSIDE RECORDS SUMMARY | 2024-12-11 15:46 | XMS_ITS | Encounter Summary ---
Author Organization [employer] Address 75 [facility] 7t [place] [address] Care Team Providers Care Fisheries Specialist Name Role Phone Morena Forte Primary Care Provider [phone] Jeremiah Humphrey Unavailable Unavailable Raj Galvin MD Unavailable [phone] E[address] Mesa Unavailable Reason for Visit * Reason Onset Date Comments Nurse Triage 11/11/2024 Encounter Details Date Type Department Care Team (Late st Contact Info) Description 11/11/2024 Telephone [facility] MEDICINE [address] [place] [address] Morena Forte FNP [address] [place], [place] [phone] Nurse Triage Social History Tobacco Use Types [...] encounter Miscellaneous Notes * Telephone Encounter - Hilaria Esquivel RN - 11/11/2024 1:00 PM EST T/C to pt to review provider assessment. Pt states that he is in [facility] due to the pain increasing. RN advised pt to call [facility] when he is discharge and if he is discharged before Sunday he should continue to his appointment with PCP. Pt expresses understanding and agrees to plan of care. * Telephone Encounter - TERI Steele - 11/11/2024 10:53 AM EST Please encourage him to take both antibiotics as prescribed, and follow-up with the wound care center. I will plan to see him on Sunday as scheduled. Thank you! Agree with triage. If pain or symptoms worsen before appointment recommend ED evaluation. * Telephone Encounter - Hilaria Esquivel RN - 11/11/2024 10:34 AM EST T/C to pt re: triage. Pt was seen at [facility] ED last month and had follow up with PCP Morena Forte on 11/07 re: cellulitis. Pt had a follow-up appointment scheduled for 11/14 with PCP but hecancelled this appointment. Pt state he cancelled appointment because he thought someone would callhim to discuss appointment. RN advised pt to always keep appointments and call the clinic if questions arise as we can discuss appointment without cancelling it, at this time RN rescheduled follow-upwith PCP. Pt states that he was not able to mixing picker tender antibiotic until yesterday but has since been taking BID and prescribed. Pt states that he is in extreme pain when walking but in no pain when legsare elevated at rest. Pt would like message sent to PCP. RN advises pt that if pain is unbearable ,or if he develops numbness or blue coloring in lower extremities or worsening symptoms he should return to ER otherwise continue to follow-up on Sunday. RN also review triage process with patient andinforms pt that he can calls in anytime with questions day or night. Pr expresses understanding and agrees to plan of care. * Telephone Encounter - Cris Sweeney - 11/11/2024 10:12 AM EST Symptom: Leg Pain (both) - Not From Injury Outcome: Talk to a nurse or provider within 15 minutes Reason: Can't walk (unless normally can't walk) The caller accepted this outcome. [phone] documented in this encounter Plan of Treatment Upcoming Encounters Date Type Department Care Team (Late st Contact Info) Description 01/09/2025 10:00 AM EDT Office Visit [facility] MED & PEDS [address] [place] [address] Morena Forte FNP 505 [place] [address] documented as of this encounter Goals Goal [...] documented as of this encounter Care Teams Fisheries Specialist Relationship Specialty Start Date End Date Morena Forte FNP [address] [place] [address] PCP - General Family Medicine 09/27/22 Jeremiah Humphrey Community Health Worker 04/18/24 Raj Galvin MD 100 [facility] 200 [place] [address] Nephrology 08/25/24 Ely Mesa [address] [place] [address] Thoracic Surgery 08/25/24 documented as of this encounter
--- OUTSIDE RECORDS SUMMARY | 2024-12-11 15:46 | XMS_ITS | Encounter Summary ---
Author Organization [employer] [facility] Address 75 [facility] 7t [place] [address] Care Team Providers Care Special Machine Stitcher Name Role Phone Morena Forte Primary Care Provider [phone] Jeremiah Humphrey Unavailable Unavailable Raj Galvin MD Unavailable [phone] Ely Mesa Unavailable Encounter Details Date Type Department Care Team ([facility] st Contact Info) Description 02/15/[address] [facility] MEDICINE [address] [place] [address] Morena Forte FNP [address] [place], [place] [phone] Social History Tobacco Use Types Packs/Day Years [...] suspected to have Coronavirus/COVID-19? No / Unsure 02/06/2023 9:43 AM EDT documented as of this encounter Plan of Treatment Upcoming Encounters Date Type Department Care Team (Late st Contact Info) Description 01/09/2025 10:00 AM EDT Office Visit [facility] CHC MED & PEDS [address] [place], [place] [phone] Morena Forte FNP 505 [place] [address] documented as of this encounter Visit Diagnoses Not on filedocumented in this encounter Care Teams Special Machine Stitcher Relationship Specialty Start Date End Date Morena Forte FNP [address] [place] [address] PCP - General Family Medicine 09/27/22 Jeremiah Humphrey Community Health Worker 04/18/24 Raj Galvin MD 100 [facility] 200 [place] [address] Nephrology 08/25/24 Ely Mesa [address] [place] [address] Thoracic Surgery 08/25/24 documented as of this encounter
--- OUTSIDE RECORDS SUMMARY | 2024-12-11 15:46 | XMS_ITS | Encounter Summary ---
Author Organization [employer] Address 75 [facility] 7t [place] [address] Care Team Providers Care Integrative Medicine Physician Name Role Phone Morena Forte Primary Care Provider [phone] Jeremiah Humphrey Unavailable Unavailable Raj Galvin MD Unavailable [phone] Ely Mesa Unavailable Reason for Visit * Reason Onset Date Comments PT-1 01/25/2024 Encounter Details Date Type Department Care Team (Late st Contact Info) Description 01/25/2024 Telephone [facility] MEDICINE 230 [place] [address] Morena Forte FNP 505 [place], [place] [phone] PT-1 Social History Tobacco Use Types Packs/Day Years [...] encounter Miscellaneous Notes * Telephone Encounter - Marisa Hillman - 01/25/2024 2:43 PM EDT PT-1 submitted for patient. They will receive a letter of approval or denial in the mail. * Telephone Encounter - Chandler Rodarte - 01/25/2024 10:24 AM EDT Patient calling requesting PT1 Home Address verified: Y/N: Yes Provider name [place] [facility] [place] Address: [address] Escort needed: Yes Do you have a wheelchair: Y/N: No If yes- Manual or electric: Uses Lopez Visits: 5 Monthly Patient calling requesting PT1 Home Address verified: Y/N: Yes Provider name or facility name: [facility]: Denise [facility] Facility Address: [address] [place] [address] Escort needed: No Do you have a wheelchair: Y/N: No If yes- Manual or electric: Uses Lopez Visits: 3 monthly Patient calling requesting PT1 Home Address verified: Y/N: Yes Provider name or facility name: [facility] Facility Address: [address] [place] [address] Escort needed: Y/N: No Do you have a wheelchair: Y/N: No If yes- Manual or electric: Uses lopez Visits: 2 monthly Patient calling requesting PT1 Home Address verified: Y/N: Yes Provider name or facility name: [facility] Facility Address: [address] [facility] Escort needed: Y/N: No Do you have a wheelchair: Y/N: No If yes- Manual or electric: Uses Visits: Twice a month Patient calling requesting PT1 Home Address verified: Y/N: Yes [facility]: [facility] Facility Address: [address] [place] [address] Escort needed: Y/N: No Do you have a wheelchair: Y/N: No If yes- Manual or electric: Uses lopez Visits: 1 monthly documented in this encounter Plan of Treatment Upcoming Encounters Date Type Department Care Team ([facility] st Contact Info) Description 01/09/2025 10:00 AM EDT Office Visit [facility] CHC MED & PEDS 505 [place] [address] Morena Forte FNP 505 [place] [address] documented as of this encounter Goals Goal [...] documented as of this encounter Care Teams Integrative Medicine Physician Relationship Specialty Start Date End Date Morena Forte FNP 230 [place] [address] PCP - General Family Medicine 09/27/22 Jeremiah Humphrey Community Health Worker 04/18/24 Raj Galvin MD 100 [facility] 200 [place] [address] Nephrology 11/4/[address] [place] [address] Thoracic Surgery 08/25/24 documented as of this encounter
--- OUTSIDE RECORDS SUMMARY | 2024-12-11 15:46 | XMS_ITS | Encounter Summary ---
Author Organization [employer] Address 75 [facility] 7t [place] [address] Care Team Providers Care Night Time Babysitter Name Role Phone Morena Forte Primary Care Provider [phone] Jeremiah Humphrey Unavailable Unavailable Raj Galvin MD Unavailable [phone] Ely Mesa Unavailable Reason for Visit * Reason Onset Date Comments Med Refill Care Coordination 11/25/2024 C3 initial a ssessment/ enrollment Encounter Details Date Type Department Care Team (Late st Contact Info) Description 11/25/2024 Refill [facility] CHC MED & PEDS 505 [place], [place] [phone] Morena Forte FNP 505 [place] [address] Social History Tobacco Use Types Packs/Day Years [...] encounter Miscellaneous Notes * Telephone Encounter - TERI Steele - 11/25/2024 9:27 PM EST Refill of wegovy denied, he is now on Zepbound. Should have refill available. * Telephone Encounter - Jannet Arora RN - 11/25/2024 3:44 PM EST DIVYA Arora RN placed outbound call to patient for agreed upon time for initial assessment for enrollment into Adult Care Management Program. Patient's name, , and address were verified. Pt is a 59-year-old male with medical history significant for malignant neoplasm of upper lobe of the left lung, pain in both hip joints, Heroine dependence. CM spoke with patient who reports he has beensober from Heroine for 5 years and denies drinking. Pt states he smokes 5-10 sticks of cigarette a day. Pt states he feels safe in his home. According to pt, he follows with the therapist once a month and the psychiatrist every 3 months with good effect and denies depression at this time. Pt also states he is compliant with all his medications and denies any side effect. Pt states he has a BUNDLE TIER AND LABELER for 23 hours a week who assist him with cooking and also laundry. Pt states he is on diabetic diet andhas lost 30lbs. Pt states he has plans of losing more weight and will discuss with PCP during upcoming appointment to refer him to a media services coordinator. Pt states he will also need a new ground operations supervisor as his old ground operations supervisor had . Pt c/o lower back pain and states he occasionally takes Percocet forthe pain and also takes Gabapentin and Celebrex for pain. According to pt, he is up to date with his dental and eye appointments and that he uses eyeglasses for reading. Pt states he owns rent and has payment arrangement with the housing management. Pt states he has enough food to last him for a month and is disable. Pt states he uses PT1 transportation for all his medical appointments. Per pt, he has an upcoming appointment with the wound clinic for left padron wound. Pt states wound is clean and dry and denies infection to site. Pt states he was prescribed ABT of which he has completed the course of ABT. Pt denies any personal goals at this time. CM plan is to provide education to pt about disease management, coordinate care for pt and remind pt of his appointments. Care management program explained and contacted information given. Patient verbalizes understanding, and able to repeat back to check writer. A follow up call will be placed within 10 days, patient agrees with plan. DIVYA Arora RN, provided notification to PCP TERI Steele of patient's enrollment into C3 Complex Care Program. DIVYA Arora RN, completed care plan and sent to HIM to be scanned into the medical record. PCP notified and awaiting review from provider. documented in this encounter Plan of Treatment Upcoming Encounters Date Type Department Care Team (Late st Contact Info) Description 01/09/2025 10:00 AM EDT Office Visit [facility] MED & PEDS 505 [place] [address] Morena Forte FNP 505 [place] [address] documented as of this encounter Goals Goal [...] documented as of this encounter Care Teams Night Time Babysitter Relationship Specialty Start Date End Date Morena Forte FNP [address] [place] [address] PCP - General Family Medicine 09/27/22 Jeremiah Humphrey Community Health Worker 04/18/24 Raj Galvin MD 100 [facility] 200 [place] [address] Nephrology 08/25/24 Ely Mesa [address] [place] [address] Thoracic Surgery 08/25/24 documented as of this encounter
--- OUTSIDE RECORDS SUMMARY | 2024-12-11 15:46 | XMS_ITS | Encounter Summary ---
Author Organization [employer] Address [address] [facility] [address] 7t [place] [address] Care Team Providers Care Account Services Specialist Name Role Phone Morena Forte Primary Care Provider [phone] Jeremiah Humphrey Unavailable Unavailable Raj Galvin MD Unavailable [phone] Ely Mesa Unavailable Encounter Details Date Type Department Care Team (Late st Contact Info) Description 11/14/2024 10:00 AM EST Office Visit [facility] CHC MED & PEDS 505 [place], [place] [phone] Morena Forte FNP 505 [place], [place] [phone] Cellulitis of left lower extremity (Primary Dx) Social History Tobacco Use Types Packs/Day Years [...] AM EDT documented as of this encounter Last Filed Vital Signs Vital Sign Reading [...] Mass Index 45.26 11/14/2024 10:18 AM EST documented in this encounter Progress Notes * TERI Steele - 11/14/2024 10:00 AM EST Images from the original note were not included. Subjective: Dru Dorsey is a 59 y.o. male w/ PMH hepatic fibrosis, MDD, asthma-COPD overlap syndrome, OUD on methadone, hx of hip replacement, left knee OA s/p TKA, lumbar spine OA, and upper left lobectomy December 2022 found to have adenocarcinoma who presents to the office for an HDF. Timeline: -Mr. Dorsey was hospitalized from 09/23/2024 - 09/24/24 at [facility] for cellulitis of bilateral lower legs. He presented with pain in bilateral lower extremities x 2 months status post fall. Lower extremities were found to be erythematous and tender. Ultrasound was negative for DVT. X-ray of the tibia-fibula was unremarkable. He was started on IV vancomycin, and then discharged on p.o. doxycycline. 11/07/24: Office visit at [facility]: Reported that the cellulitis and wounds initially started to heal on lower extremities with the antibiotics, however have subsequently worsened. Blister on left lower extremity with fluid leakage. Associated symptoms include redness and pain. Denies any fevers, chills,nausea, vomiting, diarrhea. He was started on PO cefadroxil and doxycycline. Wound culture demonstrated sensitivities to ampicillin and vancomycin. 11/11/24-11/13/24: Admitted to [facility] for lower leg pain, swelling, and cellulitis. Ultrasound of left lower extremity did not show evidence of DVT. MRI tib-fib showed no evidence of osteomyelitis. No leukocytosis on labs. He was treated with vancomycin, ceftriaxone, and cefepime with improvement in symptoms. He was discharged home to continue with p.o. doxycycline and cefpodoxime. Today: Reports that he has been completing the antibiotics as prescribed. Primary concern is the pain associated with the cellulitis. Rates his current pain as moderate, although does intermittently increase to severe in nature. Worse when he first gets up in the morning. While hospitalized, reports that he was treated with IV opioids for pain control. APAP and ibuprofen have been ineffective / SE. area that was previously a blister has scabbed over and is drying out. Area is less red and swollen than before. Review of Systems Constitutional: Negative for chills and fever. HENT: Negative for congestion. Respiratory: Negative for chest tightness. Cardiovascular: Negative for chest pain and palpitations. Gastrointestinal: Negative for vomiting. Skin: Positive for wound. Visit Vitals BP (!) 162/98 (BP Location: Right arm, Patient Position: Sitting, BP Cuff Size: Large adult) Pulse 72 Temp 97.6 ??F (36.4 ??C) (Oral) Resp 16 Ht 5' 5 (1.651 m) Wt 272 lb (123 kg) SpO2 96% BMI 45.26 kg/m?? Smoking Status Every Day BSA 2.38 m?? Physical Exam Vitals reviewed. Constitutional: Appearance: Normal appearance. HENT: Head: Atraumatic. Right Ear: External ear normal. Left Ear: External ear normal. Pulmonary: Effort: Pulmonary effort is normal. Skin: Comments: Left lower leg with scabbed over blister on anterior padron measuring 71x30 mm. Improvementof surrounding erythema noted. Neurological: Mental Status: He is alert and oriented to person, place, and time. Psychiatric: Mood and Affect: Mood normal. Behavior: Behavior normal. Problem List Items Addressed This Visit Visit Diagnoses Cellulitis of left lower extremity - Primary - Recurrent cellulitis of bilateral lower extremities. - Hospitalized September 2024 & Oct 2024. Improvement s/p IV abx - Fortunately MRI left tib-fib Oct 2024 negative for Osteomyelitis - Completed p.o., doxy and cefpodoxime as prescribed - Follow up with wound care clinic as scheduled - Suspect elevated BP 2/2 pain. Follow up if home readings above goal. - Pain control: shared decision for sparing use of Percocet 10-325mg BID PRN severe pain. Reviewed med safety and SE. 10 tablets, no refills. - Follow-up precautions Relevant Medications oxyCODONE-acetaminophen (Percocet) 10-325 MG tablet Follow up: per recall, sooner as needed. documented in this encounter Plan of Treatment Upcoming Encounters Date Type Department Care Team (Late st Contact Info) Description 01/09/2025 10:00 AM EDT Office Visit [facility] MED & PEDS [address] [place] [address] Morena Forte FNP 505 [place] [address] documented as of this encounter Goals Goal Patient Goal Type Associated Problems Recent Progress Patient-Stated? Author Blood Pressure < 140/90 Blood Pressure 162/98( 025 10:18 AM EST) Eve Bailey, RomeroD documented as of this encounter Visit Diagnoses Diagnosis Cellulitis of left lower extremity- Primary documented in this encounter Additional Health Concerns Assessment Noted Time PHQ-9 Depression Total Score: 8 06/30/20 24 11:12 AM EDT documented as of this encounter Care Teams Account Services Specialist Relationship Specialty Start Date End Date Morena Forte FNP [address] [place] [address] PCP - General Family Medicine 09/27/22 Jeremiah Humphrey Community Health Worker 04/18/24 Raj Galvin MD 100 [facility] 200 [place] [address] Nephrology 08/25/24 Ely Mesa [address] [place] [address] Thoracic Surgery 08/25/24 documented as of this encounter
--- OUTSIDE RECORDS SUMMARY | 2024-12-11 15:46 | XMS_ITS | Encounter Summary ---
Author Organization [facility] Address 75 [facility] 7t [place] [address] Care Team Providers Care Body Rolling Machine Tender Name Role Phone Morena Forte Primary Care Provider [phone] Jeremiah Humphrey Unavailable Unavailable Raj Galvin MD Unavailable [phone] Ely Mesa Unavailable Reason for Visit * Reason Onset Date Comments PT1 06/06/2023 Encounter Details Date Type Department Care Team (Late st Contact Info) Description 06/06/2023 Telephone [facility] MEDICINE 230 [place] [address] Morena Forte FNP [address] [place], [place] [phone] PT1 Social History Tobacco Use Types Packs/Day Years Used Date Smoking Tobacco: Every Day Cigarettes Smokeless Tobacco: Never Comments:Was smoking a box a day/week. Cut back to 4-5 a day. Alcohol Use Standard Drinks/Week Comments Never 0 (1 standard drink = 0.6 oz pur e alcohol) Depression Answer Date Recorded Patient Health Questionnaire-9 Score 0 06/08/2023 Depression Answer Date Recorded Patient Health Questionnaire-2 Score 0 06/08/2023 Sex and Gender Information Value Date Recorded Sex Assigned at Male 08/21/2022 10:36 AM EDT Legal Sex Male 10:36 AM EDT Gender Identity Male 08/21/2022 10:36 AM EDT Sexual Orientation Choose not to disclose 2021 10:36 AM EDT documented as of this encounter Miscellaneous Notes * Telephone Encounter - Lorraine Galindo 06/06/2023 3:48 PM EDT Tc from pt requesting a PT1 Date: 07/31/23 Time: 3:00 PM address: [address], [place] [address] specialty: eye care # visits: n/a civil division commander deputy sheriff: no Wheelchair: no documented in this encounter Plan of Treatment Upcoming Encounters Date Type Department Care Team (Late st Contact Info) Description 01/09/2025 10:00 AM EDT Office Visit [facility] MED & PEDS [address] [place], [place] [phone] Morena Forte FNP 505 [place], [place] [phone] documented as of this encounter Goals Goal [...] documented as of this encounter Care Teams Body Rolling Machine Tender Relationship Specialty Start Date End Date Morena Forte FNP [address] [place] [address] PCP - General Family Medicine 09/27/22 Jeremiah Humphrey Community Health Worker 04/18/24 Raj Galvin MD 100 [facility] 200 [place] [address] Nephrology 08/25/24 Ely Mesa [address] [place] [address] Thoracic Surgery 08/25/24 documented as of this encounter
--- OUTSIDE RECORDS SUMMARY | 2024-12-11 15:46 | XMS_ITS | Encounter Summary ---
Author Organization [employer] Address 75 [facility] 7t [place] [address] Care Team Providers Care Intel Analyst Name Role Phone Morena Forte Primary Care Provider [phone] Jeremiah Humphrey Unavailable Unavailable Raj Galvin MD Unavailable [phone] Ely Mesa Unavailable Reason for Visit * Reason Onset Date Comments ER Follow-up 02/07/2023 Encounter Details Date Type Department Care Team (Late st Contact Info) Description 02/07/2023 Telephone [facility] MEDICINE 230 [place] [address] Morena Forte FNP [address] [place], [place] [phone] ER Follow-up Social History Tobacco Use Types Packs/Day Years [...] suspected to have Coronavirus/COVID-19? No / Unsure 04/10/2023 9:30 AM EDT documented as of this encounter Miscellaneous Notes * Telephone Encounter - TERI Steele - 02/16/2023 5:57 AM EDT Please call Mr. Dorsey for a status check following ED visit. Still having SOB? Does he have pulse oximeter to monitor home O2 sat? Regarding his changes in psych meds, per chart review seems that Dr. Gonzalez had been sending in medications before. I will send message to psychopharm clinic to see if they can get him scheduled for a TURFGRASS TECHNICIAN appt. Thank you. * Telephone Encounter - Gretchen Young RN - 02/08/2023 12:29 PM EDT ED notes printed and given to PCP for review. * Telephone Encounter - Jasmin Cannon RN - 02/07/2023 10:11 AM EDT Telephone call to pt in regards to ED follow up. Scheduled appt on 02/19 at with Reanna WILLIAMSON Advised pt to call back with any questions or concerns. Pt verbalizes understanding and agrees with plan. Pt wants to know if new meds will be sent to pharmacy, pt is running out of meds and needs help understanding what meds are still needed and which ones are discontinued. * Telephone Encounter - Briana Balbuena - 02/07/2023 9:47 AM EDT Patient calling to report [place] [facility] Reports to be seen for shallow breathing was taking in ambulance from [facility]. Patient advised will forward to team nurse for follow up. Please contact at [phone] documented in this encounter Plan of Treatment Upcoming Encounters Date Type Department Care Team (Late st Contact Info) Description 01/09/2025 10:00 AM EDT Office Visit [facility] CHC MED & PEDS 505 [place] [address] Morena Forte FNP 505 [place] [address] documented as of this encounter Goals Goal Patient Goal Type Associated Problems Recent Progress Patient-Stated? Author Blood Pressure < 140/90 Blood Pressure 162/98( 025 10:18 AM EST) No Eve Oliveira, PharmD documented as of this encounter Visit Diagnoses Not on filedocumented in this encounter Care Teams Intel Analyst Relationship Specialty Start Date End Date Morena Forte FNP [address] [place] [address] PCP - General Family Medicine 09/27/22 Jeremiah Humphrey Community Health Worker 04/18/24 Raj Galvin MD [address] [address] Nephrology 08/25/24 Ely Mesa [address] [place] [phone] Thoracic Surgery 08/25/24 documented as of this encounter
--- OUTSIDE RECORDS SUMMARY | 2024-12-11 15:46 | XMS_ITS | Encounter Summary ---
Author Organization [employer] Address [address] [facility] [address] 7t [place] [address] Care Team Providers Care Welt Beater Name Role Phone Morena Forte Primary Care Provider [phone] Jeremiah Humphrey Unavailable Unavailable Raj Galvin MD Unavailable [phone] Ely Mesa Unavailable Reason for Visit * Reason Onset Date Comments Chart Prep 11/13/2024 Encounter Details Date Type Department Care Team (Late st Contact Info) Description 11/13/2024 Telephone [facility] MED & PEDS [address] [place] [address] Olga Shaffer MA Chart Prep Social History Tobacco Use Types Packs/Day Years [...] encounter Miscellaneous Notes * Telephone Encounter - Olga Black MA - 11/13/2024 5:26 PM EST Chart Prep Labs: done Images: not done Vaccines due: yes Referrals: pending appt Screenings: colonoscopy Overdue care gaps: n/a documented in this encounter Plan of Treatment Upcoming Encounters Date Type Department Care Team ([facility] Contact Info) Description 01/09/2025 10:00 AM EDT Office Visit [facility] MED & PEDS 505 [place] [address] Morena Forte FNP 505 [place] [address] documented as of this encounter Goals Goal Patient Goal Type Associated Problems Recent Progress Patient-Stated? Author Blood Pressure < 140/90 Blood Pressure 162/98( 025 10:18 AM EST) Eve Bailey, Sharon documented as of this encounter Visit Diagnoses Not on filedocumented in this encounter Additional Health Concerns Assessment Noted Time PHQ-9 Depression Total Score: 8 06/30/20 24 11:12 AM EDT documented as of this encounter Care Teams Welt Beater Relationship Specialty Start Date End Date Morena Forte FNP [address] [place] [address] PCP - General Family Medicine 09/27/22 Jeremiah Humphrey Community Health Worker 04/18/24 Raj Galvin MD [address] [address] Nephrology 08/25/24 Ely Mesa [address] [place] [address] Thoracic Surgery 08/25/24 documented as of this encounter
--- OUTSIDE RECORDS SUMMARY | 2024-12-11 15:46 | XMS_ITS | Encounter Summary ---
Author Organization [facility] Address [address] [facility] 7t [place] [address] Care Team Providers Care Lead Informatica Developer Name Role Phone Morean Forte Primary Care Provider [phone] Jeremiah Humphrey Unavailable Unavailable Raj Galvin MD Unavailable [phone] [place] Unavailable Reason for Visit * Reason Comments Med Refill Encounter Details Date Type Department Care Team (Late st Contact Info) Description 02/26/2023 Refill [facility] MEDICINE 230 [place] [address] Morena Forte FNP [address] [place] [address] Social History Tobacco Use Types Packs/Day Years [...] encounter Miscellaneous Notes * Telephone Encounter - Rosanne Wyatt RN - 02/26/2023 10:33 AM EDT Pt discharged [place] [facility] [place]23 Dx: Pulmonary emboli, lung cancer. Discharge summary, oncology notes and test results sent to medical records. T/C to pt. Advised f/u with pcp has been cancelled for 03/12/23. Pt agrees to HDF with pcp 03/13/23 at 9:30a. Pt states he will call PT-1 to arrange transportation. Advised pt to call with any questions or concerns prior to appointments. documented in this encounter Plan of Treatment Upcoming Encounters Date Type Department Care Team (Late st Contact Info) Description 01/09/2025 10:00 AM EDT Office Visit [facility] MED & PEDS 505 [place] [address] Morena Forte FNP 505 [place] [address] documented as of this encounter Visit Diagnoses Not on filedocumented in this encounter Care Teams Lead Informatica Developer Relationship Specialty Start Date End Date Morena Forte FNP [address] [place] [address] PCP - General Family Medicine 09/27/22 Jeremiah Humphrey Community Health Worker 04/18/24 Raj Galvin MD [address] [facility] 200 [place] [address] Nephrology 08/25/24 E[place] [address] [place] [address] Thoracic Surgery 08/25/24 documented as of this encounter
--- OUTSIDE RECORDS SUMMARY | 2024-12-11 15:46 | XMS_ITS | Encounter Summary ---
Author Organization [employer] Address [address] [facility] 7t [place] [address] Care Team Providers Care Security Solutions Engineer Name Role Phone Morena Forte Primary Care Provider [phone] Jeremiah Humphrey Unavailable Unavailable Raj Galvin MD Unavailable [phone] [place] [place] Unavailable Reason for Visit * Reason Comments Care Coordination CHW outreach for SDO H PT-1 and food needs-referral completed Encounter Details Date Type Department Care Team (Latest Contact Info) Description 11/26/2024 Patient Outreach [facility]S 505 [place], [place] [phone] Morena Forte FNP 505 [place] [address] Care Coordination (CHW outreach for SDOH PT-1 and food needs-referral completed /) Social History Tobacco Use Types Packs/Day Years [...] as of this encounter Progress Notes * Agustin Mcgraw - 11/26/2024 10:34 AM EST CHW Agustin Mcgraw, placed outbound call to patient for assistance with SDOH as a referral was received by the provider. Patient's name and were confirmed. Patient screened positive for the following SDOH transportation & food insecurities. CHW requested PT-1 plus referred family to B pantries in the local area. Patient agree to follow up with plan. Patient educated on extended clinic hours on Mondays through Wednesdays, and Walk-In Urgent Care Located in [facility]. Patient provided with after-hours line for [facility], , which offer night time triage service and option to transfer to soil conservationist provider if needed. documented in this encounter Plan of Treatment Upcoming Encounters Date Type Department Care Team (Late st Contact Info) Description 01/09/2025 10:00 AM EDT Office Visit [facility] MED & PEDS [address] [place], [place] [phone] Morena Forte FNP 505 [place] [address] documented as of this encounter Goals Goal [...] documented as of this encounter Care Teams Security Solutions Engineer Relationship Specialty Start Date End Date Morena Forte FNP [address] [place] [address] PCP - General Family Medicine 09/27/22 Jeremiah Humphrey Community Health Worker 04/18/24 Raj Galvin MD 100 [facility] 200 [place] [address] Nephrology 08/25/24 E[place] [address] [place] [address] Thoracic Surgery 08/25/24 documented as of this encounter
--- OUTSIDE RECORDS SUMMARY | 2024-12-11 15:46 | XMS_ITS | Encounter Summary ---
Author Organization [employer] Address 75 [facility] 7t [place] [address] Care Team Providers Care Trademark Attorney Name Role Phone Morena Forte Primary Care Provider [phone] Jeremiah Humphrey Unavailable Unavailable Raj Galvin MD Unavailable [phone] [place] Unavailable Reason for Visit * Reason Onset Date Comments PT1 05/28/2023 Encounter Details Date Type Department Care Team (Late st Contact Info) Description 05/28/2023 Telephone [facility] MEDICINE 230 [place] [address] Morena Forte FNP [address] [place], [place] [phone] PT1 Social History Tobacco Use Types Packs/Day [...] encounter Miscellaneous Notes * Telephone Encounter - Ariadna Ibarra - 05/28/2023 10:59 AM EDT Tc from pt requesting a PT1 and asked if it can be a van transportation not a car Location:[address] [place] [address] Specialty: Podiatry Date&Time:N/a Division Roadmaster:No Pt will be using a cane PT1 Date: 06/01/2023 Time: 2:15 pm address: [address] [place] [address] specialty: Pulmonogists overlock elastic attacher: N/A Wheelchair:N/A documented in this encounter Plan of Treatment Upcoming Encounters Date Type Department Care Team (Late st Contact Info) Description 01/09/2025 10:00 AM EDT Office Visit [facility]S 505 [place] [address] Morena Forte FNP 505 [place], [place] documented as of this encounter Visit Diagnoses Not on filedocumented in this encounter Additional Health Concerns Assessment Noted Time PHQ-9 Depression Total Score: 16 023 9:44 AM EDT documented as of this encounter Care Teams Trademark Attorney Relationship Specialty Start Date End Date Morena Forte FNP 230 [place] [address] PCP - General Family Medicine 09/27/22 Jeremiah Humphrey Community Health Worker 04/18/24 Raj Galvin MD [address] [facility] 200 [place] [address] Nephrology 08/25/24 Ely [place] [address] [place] [address] Thoracic Surgery 08/25/24 documented as of this encounter
--- OUTSIDE RECORDS SUMMARY | 2024-12-11 15:46 | XMS_ITS | Encounter Summary ---
Author Organization [employer] Address 75 [facility] 7t [place] [address] Care Team Providers Care Vehicle Detailer Name Role Phone Morena Forte Primary Care Provider [phone] Jeremiah Humphrey Unavailable Unavailable Raj Galvin MD Unavailable [phone] [place] Unavailable Reason for Visit * Reason Onset Date Comments Referral 12/13/2022 Encounter Details Date Type Department Care Team (Late st Contact Info) Description 12/13/2022 Telephone [facility] MEDICINE 230 [place] [address] Morena Forte FNP [address] [place], [place] [phone] Referral Social History Tobacco Use Types Packs/Day Years [...] * Telephone Encounter - Yi Kingston - 12/21/2022 10:39 PM EST Patient will recieve approval / denial letter via mail. PT-1 Request [id number] Pending . [address] [address]. Patient has current PT1 to [address] Shoshana WOOD [address] through 05/2023 * Telephone Encounter - Briana Galindo 12/13/2022 8:42 AM EST Tc from pt requesting a PT-1 Form, States has an upcoming appt. PT 1 request Name of facility : [facility] Address : [address] [place] [address] Dr 3rd Floor, [place] [address] Specialty : Community Organizer Time : 2:15pm Date : 12/13/22 Fax : Wheel Chair : No Oil Burner Servicer And Installer : No Tc from pt requesting a PT-1 Form, States has an upcoming appt. PT 1 request Name of facility : [facility] Address : [address] [place] [address] Specialty : Surgery Time : N/a Date : N/a Fax N/a Wheel Chair : No Oil Burner Servicer And Installer : No documented in this encounter Plan of Treatment Upcoming Encounters Date Type Department Care Team (Late st Contact Info) Description 01/09/2025 10:00 AM EDT Office Visit [facility] MED & PEDS 505 [place] [address] Morena Forte FNP 505 [place] [address] documented as of this encounter Goals Goal Patient Goal Type Associated Problems Recent Progress Patient-Stated? Author Blood Pressure < 140/90 Blood Pressure 162/98( 025 10:18 AM EST) No Eve Oliveira, PharmD documented as of this encounter Visit Diagnoses Not on filedocumented in this encounter Care Teams Vehicle Detailer Relationship Specialty Start Date End Date Morena Forte FNP [address] [place] [address] PCP - General Family Medicine 09/27/22 Jeremiah Humphrey Community Health Worker 04/18/24 Raj Galvin MD [address] 200 [place] [address] Nephrology 08/25/24 E[place] [address] [place] [address] Thoracic Surgery 08/25/24 documented as of this encounter
--- OUTSIDE RECORDS SUMMARY | 2024-12-11 15:46 | XMS_ITS | Encounter Summary ---
Author Organization [employer] Address 75 [facility] 7t [place] [address] Care Team Providers Care Neighborhood Aide Name Role Phone Morena Forte Primary Care Provider [phone] Jeremiah Humphrey Unavailable Unavailable Raj Galvin MD Unavailable [phone] [place] [place] Unavailable Reason for Visit * Reason Onset Date Comments PT1 08/03/2023 Encounter Details Date Type Department Care Team ([facility] st Contact Info) Description 08/03/2023 Telephone [facility] MED & PEDS 505 [place], [place] [phone] Morena Forte FNP 505 [place], [place] [phone] PT1 Social History Tobacco Use Types Packs/Day [...] * Telephone Encounter - Marisa Hillman - 08/03/2023 3:30 PM EDT PT-1 submitted for patient. They will receive a letter of approval or denial in the mail. * Telephone Encounter - Lorraine Humphrey - 08/03/2023 3:03 PM EDT Tc from pt requesting PT1 Date: 09/03 Time: 2 PM Visits: n/a Address: [address] [place] [address] Facility: [facility] primary care Wheel Chair: no Harvest Field Ticketer Needed: no supervisor extruding department location confirmed: [address] [place] [address] documented in this encounter Plan of Treatment Upcoming Encounters Date Type Department Care Team ([facility] Contact Info) Description 01/09/2025 10:00 AM EDT Office Visit [facility] MED & PEDS 505 [place] [address] Morena Forte FNP 505 [place] [address] documented as of this encounter Goals Goal [...] documented as of this encounter Care Teams Neighborhood Aide Relationship Specialty Start Date End Date Morena Forte FNP [address] [place] [address] PCP - General Family Medicine 09/27/22 Jeremiah Humphrey Community Health Worker 04/18/24 Raj Galvin MD 100 [facility] 200 [place] [address] Nephrology 08/25/24 E[place] [address] [place] [address] Thoracic Surgery 08/25/24 documented as of this encounter
--- OUTSIDE RECORDS SUMMARY | 2024-12-11 15:46 | XMS_ITS | Encounter Summary ---
Author Organization [employer] Address 75 [facility] 7t [place] [address] Care Team Providers Care Share Dairy Farmer Name Role Phone Morena Forte Primary Care Provider [phone] Jeremiah Humphrey Unavailable Unavailable Raj Galvin MD Unavailable [phone] [place] Unavailable Reason for Visit * Reason Onset Date Comments Call Back Request 11/13/2024 Encounter Details Date Type Department Care Team (Late st Contact Info) Description 11/13/2024 Telephone [facility] MEDICINE 230 [place] [address] Morena Fotre FNP [address] [place], [place] [phone] Call Back Request Social History Tobacco Use Types Packs/Day Years [...] encounter Miscellaneous Notes * Telephone Encounter - Constance James RN - 11/13/2024 4:03 PM EST TC to pt to clarify care concerns. Pt states that he is considered about care in the hospital. Pt is to be discharged today and have f/u appt tomorrow morning at [facility]. Advised pt to bring discharge paperwork and we can discuss concerns in office. Pt agrees to plan. * Telephone Encounter - Jasenliss CorralPelon - 11/13/2024 3:20 PM EST Tc from pt stating that he is admitted in [facility] due to having a Leg Infection. Ptwould like to Speak to care team due to him not receiving the Care he feels he deserves. Contact pt at [phone] documented in this encounter Plan of Treatment Upcoming Encounters Date Type Department Care Team (Late st Contact Info) Description 01/09/2025 10:00 AM EDT Office Visit [facility] MED & PEDS [address] [place], [place] [phone] Morena Forte FNP 505 [place] [address] documented as of this encounter Goals Goal Patient Goal Type Associated Problems Recent Progress Patient-Stated? Author Blood Pressure < 140/90 Blood Pressure 162/98( 025 10:18 AM EST) No Eve Oliveira, Sharon documented as of this encounter Visit Diagnoses Not on filedocumented in this encounter Additional Health Concerns Assessment Noted Time PHQ-9 Depression Total Score: 8 06/30/20 24 11:12 AM EDT documented as of this encounter Care Teams Share Dairy Farmer Relationship Specialty Start Date End Date Morena Forte FNP [address] [place] [address] PCP - General Family Medicine 09/27/22 Jeremiah Humphrey Community Health Worker 04/18/24 Raj Galvin MD 100 [facility] 200 [place] [address] Nephrology 08/25/24 E[address] [place] [address] [place] [address] Thoracic Surgery 08/25/24 documented as of this encounter
--- OUTSIDE RECORDS SUMMARY | 2024-12-11 15:46 | XMS_ITS | Encounter Summary ---
Author Organization [employer] Address 75 [facility] 7t [place] [address] Care Team Providers Care Log Marker Name Role Phone Morena Forte Primary Care Provider [phone] Jeremiah Humphrey Unavailable Unavailable Rja Galvin MD Unavailable [phone] [place] Unavailable Reason for Visit * Reason Comments Med Refill Encounter Details Date Type Department Care Team ([facility] st Contact Info) Description 04/03/2024 Refill [facility] MED & PEDS 505 [place] [address] Morena Forte FNP 505 [place], [place] [phone] Severe obesity (CMS/HCC) Social History Tobacco Use Types Packs/Day Years [...] Description 01/09/2025 10:00 AM EDT Office Visit [facility] MED & PEDS 505 [place] [address] Morena Forte FNP 505 [place] [address] documented as of this encounter Goals Goal Patient Goal Type Associated Problems Recent Progress Patient-Stated? Author Blood Pressure < 140/90 Blood Pressure 162/98( 025 10:18 AM EST) No Eve Oliveira, PharmD documented as of this encounter Visit Diagnoses Diagnosis Severe obesity (CMS/HCC) Morbid obesity documented in this encounter Additional Health Concerns Assessment Noted Time PHQ-9 Depression Total Score: 0 06/08/20 23 1:16 PM EDT documented as of this encounter Care Teams Log Marker Relationship Specialty Start Date End Date Morena Forte FNP 230 [place] [address] PCP - General Family Medicine 09/27/22 Jeremiah Humphrey Community Health Worker 04/18/24 Raj Galvin MD [address] [facility] 200 [place] [address] Nephrology 08/25/24 E[place] [address] [place] [address] Thoracic Surgery 08/25/24 documented as of this encounter
--- OUTSIDE RECORDS SUMMARY | 2024-12-11 15:46 | XMS_ITS | Encounter Summary ---
Author Organization [employer] Address [address] [facility] [address] 7t [place] [address] Care Team Providers Care Puller Out Name Role Phone Cyndiroyer Morena TERI Primary Care Provider [phone] Jeremiah Humphrey Unavailable Unavailable Raj Galvin MD Unavailable [phone] [place] Unavailable Encounter Details Date Type Department Care Team (Latest Contact Info) Description 11/14/2024 Travel Social History Tobacco Use Types Packs/Day [...] 10:00 AM EDT Office Visit [facility] MED & PEDS 505 [place] [address] Morena Forte FNP 505 [place] [address] documented as of this encounter Goals Goal [...] documented as of this encounter Care Teams Puller Out Relationship Specialty Start Date End Date Morena Forte FNP [address] [place] [address] PCP - General Family Medicine 09/27/22 Jeremiah Humphrey Community Health Worker 04/18/24 Raj Galvin MD [address] [phone] Nephrology 08/25/24 E[place] [address] [place] [address] Thoracic Surgery 08/25/24 documented as of this encounter
--- OUTSIDE RECORDS SUMMARY | 2024-12-11 15:46 | XMS_ITS | Encounter Summary ---
Author Organization [employer] Address 75 [facility] 7t [place] [address] Care Team Providers Care Seismic Prospecting Observer Helper Name Role Phone Morena Forte Primary Care Provider [phone] Jeremiah Humphrey Unavailable Unavailable Raj Galvin MD Unavailable [phone] [place] Unavailable Reason for Visit * Reason Comments Med Refill Encounter Details Date Type Department Care Team ([facility] st Contact Info) Description 11/13/2024 Refill [facility] MED [facility] PEDS 505 [place] [address] Morena Forte FNP 505 [place], [place] [phone] Lower extremity edema Social History Tobacco Use Types Packs/Day Years [...] 01/09/2025 10:00 AM EDT Office Visit [facility] PEDS 505 [place] [address] Morena Forte, TERI 505 [place] [address] documented as of this encounter Goals Goal Patient Goal Type Associated Problems Recent Progress Patient-Stated? Author Blood Pressure < 140/90 Blood Pressure 162/98( 025 10:18 AM EST) No Eve Oliveira, PharmD documented as of this encounter Visit Diagnoses Diagnosis Lower extremity edema Edema documented in this encounter Additional Health Concerns Assessment Noted Time PHQ-9 Depression Total Score: 8 06/30/20 11:12 AM EDT documented as of this encounter Care Teams Seismic Prospecting Observer Helper Relationship Specialty Start Date End Date Morena Forte FNP [address] [place] [address] PCP - General Family Medicine 09/27/22 Jeremiah Humphrey Community Health Worker 04/18/24 Raj Galvin MD [address] [place] [address] Nephrology 08/25/24 Ely [place] [address] [place] [address] Thoracic Surgery 08/25/24 documented as of this encounter
--- OUTSIDE RECORDS SUMMARY | 2024-12-11 15:46 | XMS_ITS | Encounter Summary ---
Author Organization [employer] Address 75 [facility] 7t [place] [address] Care Team Providers Care Card Maker Name Role Phone Morena Forte Primary Care Provider [phone] Jeremiah Humphrey Unavailable Unavailable Raj Galvin MD Unavailable [phone] [place] Unavailable Reason for Visit * Reason Onset Date Comments pt1 12/20/2022 Encounter Details Date Type Department Care Team (Late st Contact Info) Description 12/20/2022 Telephone [facility] MEDICINE 230 [place] [address] Morena Forte FNP [address] [place], [place] [phone] pt1 Social History Tobacco Use Types Packs/Day Years [...] suspected to have Coronavirus/COVID-19? No / Unsure 12/07/2022 2:02 PM EST documented as of this encounter Miscellaneous Notes * Telephone Encounter - Yi Kingston - 12/21/2022 10:45 PM EST Patient will recieve approval / denial letter via mail. PT-1 Request [id number] Pending - [facility] [address] [facility] [address] * Telephone Encounter - Dami Nam - 12/20/2022 1:54 PM EST Tc from pt requesting pt1 Location: [facility] [address] [facility] [address], [place] [address] Specialty: left lung surgery Time:9: 30 am, 9 am, 6 am Date:01/02/23, 01/08/23, 01/09/23 Elevator Troubleshooter: no wheelchair accessible : n/a Please contact pt at [phone] documented in this encounter Plan of Treatment Upcoming Encounters Date Type Department Care Team (Late st Contact Info) Description 01/09/2025 10:00 AM EDT Office Visit [facility] MED & PEDS 505 [place] [address] Morena Forte FNP 505 [place] [address] documented as of this encounter Visit Diagnoses Not on filedocumented in this encounter Care Teams Card Maker Relationship Specialty Start Date End Date Morena Forte FNP 230 [place] [address] PCP - General Family Medicine 09/27/22 Jeremiah Humphrey Community Health Worker 04/18/24 Raj Galvin MD 100 [facility] 200 [place] [address] Nephrology 08/25/24 E[place] [address] [place] [address] Thoracic Surgery 08/25/24 documented as of this encounter
--- OUTSIDE RECORDS SUMMARY | 2024-12-11 15:46 | XMS_ITS | Encounter Summary ---
Author Organization [employer] Address 75 [facility] 7t [place] [address] Care Team Providers Care Pododermatologist Name Role Phone Morena Forte Primary Care Provider [phone] Jeremiah Humphrey Unavailable Unavailable Raj Galvin MD Unavailable [phone] [place] Unavailable Reason for Visit * Reason Comments Med Refill Encounter Details Date Type Department Care Team ([facility] st Contact Info) Description 12/10/2024 Refill [facility] MED & PEDS 505 [place], [place] [phone] Morena Forte FNP 505 [place], [place] [phone] Social History Tobacco Use Types Packs/Day Years [...] Description 01/09/2025 10:00 AM EDT Office Visit [facility] MED & PEDS 505 [place] [address] Morena Forte, TERI 505 [place] [address] documented as of this encounter Goals Goal Patient Goal Type Associated Problems Recent Progress Patient-Stated? Author Blood Pressure < 140/90 Blood Pressure 162/98( 025 10:18 AM EST) No RiversEve Regalado, PharmD documented as of this encounter Visit Diagnoses Not on filedocumented in this encounter Additional Health Concerns Assessment Noted Time PHQ-9 Depression Total Score: 8 06/30/20 24 11:12 AM EDT documented as of this encounter Care Teams Pododermatologist Relationship Specialty Start Date End Date Morena Forte FNP 230 [place] [address] PCP - General Family Medicine 09/27/22 Jeremiah Humphrey Community Health Worker 04/18/24 Raj Galvin MD [address] [address] Nephrology 08/25/24 Ely [place] [address] [place] [address] Thoracic Surgery 08/25/24 documented as of this encounter
--- OUTSIDE RECORDS SUMMARY | 2024-12-11 15:46 | XMS_ITS | Encounter Summary ---
Author Organization [employer] Address [address] [facility] 7t [place] [address] Care Team Providers Care Manager Community Development Name Role Phone Morena Forte Primary Care Provider [phone] Jeremiah Humphrey Unavailable Unavailable Raj Galvin MD Unavailable [phone] Unavailable Reason for Visit * Reason Onset Date Comments FYI 05/31/2023 Encounter Details Date Type Department Care Team (Late st Contact Info) Description 05/31/2023 Telephone [facility] MEDICINE [address] [place] [address] Morena Forte FNP [address] [place], [place] [phone] FYI Social History Tobacco Use Types Packs/Day Years [...] encounter Miscellaneous Notes * Telephone Encounter - Briana Balbuena - 05/31/2023 4:49 PM EDT Tc from Tiffany pt's [facility] informing that facility will continuously see pt, Weekly until pt is all recovered and healed. If any questions please contact Tiffany at [phone] documented in this encounter Plan of Treatment Upcoming Encounters Date Type Department Care Team (Late st Contact Info) Description 01/09/2025 10:00 AM EDT Office Visit [facility] CHC MED & PEDS [address] [place], [place] [phone] Morena Forte FNP [address] [place] [address] documented as of this encounter Goals Goal Patient Goal Type Associated Problems Recent Progress Patient-Stated? Author Blood Pressure < 140/90 Blood Pressure 162/98( 025 10:18 AM EST) No Eve Oliveira PharmD documented as of this encounter Visit Diagnoses Not on filedocumented in this encounter Additional Health Concerns Assessment Noted Time PHQ-9 Depression Total Score: 16 023 9:44 AM EDT documented as of this encounter Care Teams Manager Community Development Relationship Specialty Start Date End Date Morena Forte FNP [address] [place] [id number] PCP - General Family Medicine 09/27/22 Jeremiah Humphrey Community Health Worker 04/18/24 Raj Galvin MD 100 [facility] [address] [place] [address] Nephrology 08/25/24 Ely Mesa [address] [place] [address] Thoracic Surgery 08/25/24 documented as of this encounter
--- OUTSIDE RECORDS SUMMARY | 2024-12-11 15:46 | XMS_ITS | Encounter Summary ---
Author Organization [employer] Address [address] [facility] 7t [place] [address] Care Team Providers Care Healthcare Market Consultant Name Role Phone Morena Forte Primary Care Provider [phone] Jereimah Humphrey Unavailable Unavailable Raj Galvin MD Unavailable [phone] Unavailable Reason for Visit * Reason Comments Med Refill Encounter Details Date Type Department Care Team ([facility] st Contact Info) Description 04/22/2024 Refill [facility] CHC MED & PEDS [address] [place], [place] [phone] Morena Forte FNP [address] [place], [place] [phone] Social History Tobacco Use Types Packs/Day Years [...] * Telephone Encounter - TERI Steele - 04/30/2024 12:23 PM EDT [employer] - Fortino info provided by pharmacy, seems as though he should have run out of medicationsalready? Could you please call Dr. Kendrick's office to see what information they have on their end? Please let me know, thank you. * Telephone Encounter - Jannet Arora RN - 04/30/2024 9:50 AM EDT DIVYA Arora RN and FELIBERTO Humphrey placed outbound call to patient. Patient's name, and address confirmed. Patient states is doing well with no recent illnesses or emergency room visits.Pt informed CM called Gina from Dr Gerard's office regarding knee surgery and left a message for Gina requesting a return call back. Pt reports compliance with all his medications and denies any side effect. Pt reports running out of his Gabapentin, Duloxetine, Trazadone and Wellbutrin. Gabapentinis prescribed by PCP but the rest of the medications are prescribed by his psych provider [facility]. Pt states he has called their office multiple times with no answer. Pt reports he is concern that he might relapse and will like to find out if PCP can send a one time refill to the pharmacy. CM reached out to [facility], spoke with Dulce who states pt takes Duloxetine 60mg daily Qty 30 last refill on 02/07/2024, Trazodone 100mg take 1-2 tabs at bedtime qty 18. Last refill on 04/08 and Wellbutrin XL 300mg 24hr daily in the morning Qty 22, last refill on March 19. CM will send a refill request to PCP. Pt states he is doing well and managing his depression with medication and staying positive. Denies depression and anxiety at this time. Pt states he cancelled his colonoscopy appt and left a voice message for the GI office to reach out to him to reschedule the appt. No further questions or concerns. CM reinforced direct contact information or CHW for any additional questions or concerns. Education provided on [facility] located in [facility]. Patient provided with after-hours line for [facility], , which offer nighttime triage service and option to transfer to front of house manager provider if needed. Patient verbalizes understanding, and able to repeat back to creative services writer. A follow up call will be placed within 10 days, patient agrees with plan. documented in this encounter Plan of Treatment Upcoming Encounters Date Type Department Care Team ([facility] Contact Info) Description 01/09/2025 10:00 AM EDT Office Visit [facility] MED & PEDS [address] [place] [address] Morena Forte FNP [address] [place], [place] [phone] documented as of this encounter Goals Goal [...] documented as of this encounter Care Teams Healthcare Market Consultant Relationship Specialty Start Date End Date Morena Forte FNP [address] [place] [id number] PCP - General Family Medicine 09/27/22 Jeremiah Humphrey Community Health Worker 04/18/24 Raj Galvin MD [address] [phone] Nephrology 08/25/24 Ely Mesa [address] [place] [address] Thoracic Surgery 08/25/24 documented as of this encounter
--- OUTSIDE RECORDS SUMMARY | 2024-12-11 15:46 | XMS_ITS | Encounter Summary ---
Author Organization [email or web address] Address [address] [facility] 7[address] [place] [address] Care Team Providers Care Airframe Design Engineer Name Role Phone Morena Forte Primary Care Provider [phone] Jeremiah Humphrey Unavailable Unavailable Raj Galvin MD Unavailable [phone] Unavailable Reason for Visit * Reason Onset Date Comments Referral 12/14/2022 Encounter Details Date Type Department Care Team (Late st Contact Info) Description 12/14/2022 Telephone [facility] MEDICINE [address] [place] [address] Morena Forte FNP [address] [place], [place] [phone] Referral Social History Tobacco Use Types Packs/Day [...] encounter Miscellaneous Notes * Telephone Encounter - Radha Turk - 12/18/2022 3:42 PM EST Tc from pt requesting status on message below. Please contact pt at [phone] * Telephone Encounter - Briana Balbuena - 12/14/2022 11:49 AM EST Tc from pt requesting a PT-1 Form, States has an upcoming appt. PT 1 request Name of facility : [facility] Address : [address] [place] [id number] Specialty : Pre-op Surgery / COVID testing / Post op Time : 9:30am / 9am / 6am / Date : ( 01/02/23 ) ( 01/08/23 ) 01/09/23 01/23/23 Phone : N/a Fax N/a Wheel Chair : No Cosmetology Professor : Yes Please contact at [phone] documented in this encounter Plan of Treatment Upcoming Encounters Date Type Department Care Team (Late st Contact Info) Description 01/09/2025 10:00 AM EDT Office Visit [facility] CHC MED & PEDS [address] [place] [address] Morena Forte FNP [address] [place] [address] documented as of this encounter Goals Goal Patient Goal Type Associated Problems Recent Progress Patient-Stated? Author Blood Pressure < 140/90 Blood Pressure 162/98( 025 10:18 AM EST) No Eve Oliveira, RomeroD documented as of this encounter Visit Diagnoses Not on filedocumented in this encounter Care Teams Airframe Design Engineer Relationship Specialty Start Date End Date Morena Forte FNP [address] [place] [phone] PCP - General Family Medicine 09/27/22 Jeremiah Humphrey Community Health Worker 04/18/24 Raj Galvin MD 100 [facility] 200 [place] [phone] Nephrology 08/25/24 Ely Mesa [address] [place] [address] Thoracic Surgery 08/25/24 documented as of this encounter
--- OUTSIDE RECORDS SUMMARY | 2024-12-11 15:46 | XMS_ITS | Data Portability ---
Author Organization [place] Gabe Lanier [facility], [facility] Address [address] [place] [address] Care Team Providers Care Vendor Management Specialist Name Role Phone HUBER BLANKENSHIP Referring Provider [phone] [facility] Primary Care Prov ider Assessment Encounter Date Assessment Date Assessment LastModified by Organization Details LastModified Time 08/05/2024 08/05/2024 Assessment: Patient had decreased ROM today and significant tightness in LE stretches. Significant difficulty with strengthening today and quad activation. Plan: Continue PT @ 2x/wk for 8 weeks to decrease pain, increase ROM, optimize mechanics for functional mobility with gait and stairs, and facilitate independence with functional ADL's. Not available 08/05/2024 14:22:09 08/07/2024 08/07/2024 Assessment: Despite the patient falling yesterday, he was able to complete PT exercises well without significant increase in knee pain. Introduced to stationary bike and the patient was able to complete full revolutions at a few minutes. Plan: Continue PT @ 2x/wk for 8 weeks to decrease pain, increase ROM, optimize mechanics for functional mobility with gait and stairs, and facilitate independence with functional ADL's. [email or web address] Not available 08/07/2024 15:06:41 08/13/2024 08/13/2024 Assessment: Patient has decreased ROM today with significant pain. He continues to report pain in all functional exercises and needed an increased table height to complete sit to stands due to LBP/ anterior medial knee pain. Plan: Continue PT @ 2x/wk for 8 weeks to decrease pain, increase ROM, optimize mechanics for functional mobility with gait and stairs, and facilitate independence with functional ADL's. Not available 08/13/2024 17:09:18 08/15/2024 08/15/2024 Assessment: Patient has significant tightness in the quad and ITB. He tolerated patella mobs with decreased pain in knee post and increased ROM Plan: Continue PT @ 2x/wk for 8 weeks to decrease pain, increase ROM, optimize mechanics for functional mobility with gait and stairs, and facilitate independence with functional ADL's. Not available 08/15/2024 14:27:46 08/19/2024 08/19/2024 Assessment: Patient demonstrated increase tolerance to stretching without significant increase in pain. Good understanding of independent HEP. Plan: D/C to independent HEP. [email or web address] Not available 08/19/2024 15:27:46 Plan of Treatment Reminders Order Date Submit Date Provider Last Modified By Organization Details Last Modified Time Details Appointments None record ed. Lab None record ed. Referral None record ed. Procedures None record ed. Surgeries None record ed. Imaging None record ed. Medication Orders None record ed. Patient TargetsNo targets recorded. Patient InstructionsNo instructions recorded. Reason for Referral None Reported. Results Created Date Observation Date Name Description Value Unit Range Abnormal Flag Note LastModifiedBy Organization Detail LastModifiedTime 07/24/2007/24/2024 XR, knee, 3 view http:/ [email or web address] ?Encry pted=s hAaTro YD8dLq bEUv6g %2BXZw aYqtaq 0bqfl% 2Fg9IQ a4ajBk vP9nXo QUaueC m3YtLR FvZlgJ JJ8mAn HZtai3 2m9638 AC0Kqa 3%2BHV qeiKiQ trMwF INTERFACE [facility] Office [address], [place], [address], 07/24/2024 14:30:25 07/24/2007/24/2024 XR, knee, 3 view http:/ [email or web address] ?Encry pted=s hAaTro YD8dLq bEUv6g %2BXZw aYqtaq 0bqfl% 2Fg9IQ a4ajBk vP9nXo QUaueC m3YtLR FvZlgJ JJ8mAn HZtai3 2v2438 AC0Kqa 3%2BHV qeiKiQ trMwF INTERFACE [facility] [address], [place], [address], 07/24/2024 14:30:27 Result Notes None recorded. Problems Name Problem SNOMED Code Status Onset Date Resolution Date Notes Provider Name and Address Organization Details Recorded Time History of left total knee replacemen t 8313373490673 105 Active 2023 Franklyn Eagle MD [address], [place], [address] , [facility] 4 14:40:55 Problem Notes None recorded. Procedures Surgical History Date Name Laterality Status Provider Name and Address Organization Details Recorded Time 4 72017 Therapeutic Exercise (1:1) completed David Weiss DPT [address] [facility], [place], [address], [facility] 08/06/2024 13:06:24 4 66801 Therapeutic Exercise (1:1) completed Emy Lora PTA [address] [facility], [place], [address], [facility] 08/05/2024 14:23:00 4 04735: Hot or Cold Pack completed Emy Lora PTA [address] [facility], [place], [address], [facility] 08/05/2024 14:23:05 4 41369: Therapeutic Activities (1:1) completed David Weiss DPT [address] [facility], [place], [address], [facility] 07/30/2024 17:25:57 4 70220 Therapeutic Exercise (1:1) completed David Weiss DPT [address], [place], [address], [facility] 07/30/2024 17:25:51 4 14121: Hot or Cold Pack completed David Weiss DPT [address], [place], [address], [facility] 07/29/2024 09:18:32 4 26198 Therapeutic Exercise (1:1) completed David Weiss DPT [address], [place], [address], [facility] 07/28/2024 09:09:40 4 14559: Hot or Cold Pack completed David Weiss DPT [address], [place], [address], [facility] 07/28/2024 09:09:40 4 23639 Therapeutic Exercise (1:1) completed Emy Lora, RESEARCH GEOLOGIST [address], [place], [address], [facility] 07/23/2024 14:18:07 4 35204: Hot or Cold Pack completed Emy Lora, RESEARCH GEOLOGIST [address], [place], [address], [facility] 07/23/2024 14:18:13 4 31686 Therapeutic Exercise (1:1) completed David Weiss DPT [address], [place], [address], [facility] 07/18/2024 14:56:57 4 35101: Hot or Cold Pack completed David Weiss DPT [address], [place], [address], [facility] 07/17/2024 09:25:22 4 03673: Gait training completed David Weiss DPT [address], [place], [address], [facility] 07/18/2024 14:57:04 4 35697 Therapeutic Exercise (1:1) completed David Weiss, DPT [address], [place], [address], [facility] 07/16/2024 14:20:05 4 08285: Hot or Cold Pack completed David Weiss, DPT [address], [place], [address], [facility] 07/15/2024 10:03:58 4 35217 Therapeutic Exercise (1:1) completed David Weiss, DPT [address], [place], [address], [facility] 07/10/2024 11:09:13 4 96297: Hot or Cold Pack completed David Weiss, DPT [address], [place], [address], [facility] 07/10/2024 11:09:13 4 08112 Therapeutic Exercise (1:1) completed Emy Lora, RESEARCH GEOLOGIST [address], [place], [address], [facility] 07/09/2024 14:17:25 4 46996: Hot or Cold Pack completed Emy Lora, RESEARCH GEOLOGIST [address], [place], [address], [facility] 07/09/2024 14:19:16 4 87418 Therapeutic Exercise (1:1) completed Emy Lora, RESEARCH GEOLOGIST [address], [place], [address], [facility] 07/04/2024 15:12:36 4 62300: Hot or Cold Pack completed Emy Geno, RESEARCH GEOLOGIST [address], [place], [address], [facility] 07/04/2024 15:12:41 4 07097 Therapeutic Exercise (1:1) completed Eddi Vallecillo RESEARCH GEOLOGIST [address] [facility], [place], [address], [facility] 07/02/2024 14:27:49 4 04010: Hot or Cold Pack completed Eddi Vallecillo RESEARCH GEOLOGIST [address] [facility], [place], [address], [facility] 07/02/2024 14:54:49 4 46994 Therapeutic Exercise (1:1) completed David Weiss DPT [address] [facility], [place], [address], [facility] 06/27/2024 15:35:14 4 21249: Low complexity PT Eval completed David Weiss DPT [address] [facility], [place], [address], [facility] 06/27/2024 15:34:37 4 83928 Therapeutic Exercise (1:1) completed David Weiss DPT [address] [facility], [place], [address], [facility] 06/04/2024 13:08:24 4 32158: Low complexity PT Eval completed David Weiss DPT [address] [facility], [place], [address], [facility] 06/04/2024 13:08:27 Imaging Results Imaging Date Name Status LastModified by [facility] Details LastModified Time 07/24/2024 XR, knee, 3 view completed INTERFACE [facility] [address] [facility], [place], [address], 07/24/2024 14:30:25 07/24/2024 XR, knee, 3 view completed INTERFACE [facility] [address], [place], [address], 07/24/2024 14:30:27 Procedure Notes None recorded. Medical Equipment None Reported. Allergies Allergen ID Allergen Name Allergen Category Reaction Reaction Severity Criticality Documentation Date Start Date Code Code System Note Provider Name and Address Organization Details Recorded Time 90797 Product containin g penicilli n (product) medicatio n Not available Not available Not available 12/24/20232019 47594 8001 SNOMED Not Available [facility] 10:54:17 Medications Name Sig Start Date Stop Date Status Note LastModified by Organization Details LastModified Time celecoxib 200 mg capsule TAKE 1 CAPSULE BY MOUTH EVERY DAY active Not Available Not Available No t Available cyclobenzapr ine 10 mg tablet TAKE 1 TABLET BY MOUTH THREE TIMES A DAY NEEDED FOR SPASMS active Not Available Not Available N ot Available clindamycin HCl 300 mg capsule TAKE 1 CAPLET BY MOUTH EVERY DAY FOR 7 DAYS active Not Available Not Available No t Available pantoprazole 40 mg tablet,delay ed release TAKE 1 TABLET BY MOUTH EVERY DAY active Not Available Not Available No t Available hydromorphon e 4 mg tablet TAKE 1/2 (HALF) TO 1 TABLET EVERY 3 HOURS NEEDED FOR MODERATE/SE MAURICE PAIN active Not Available Not Available No t Available varenicline tartrate 1 mg tablet TAKE 1/2 TABLET BY MOUTH EVERY DAY FOR 3 DAYS, THEN 1/2 TABLET TWICE DAILY FOR FOUR DAYS, THEN 1 TABLET TWICE DAILY active Not Available Not Available Not Available Eliquis 2.5 mg tablet TAKE 1 TABLET BY MOUTH TWO TIMES A DAY active Not Available Not Available Not Available Wegovy 1 mg/0.5 mL subcutaneous pen injector ADMINISTER 1 MG UNDER THE SKIN WEEKLY active Not Available Not Available No t Available Wegovy 0.25 mg/0.5 mL subcutaneous pen injector INJECT 0.25 MG UNDER THE SKIN ONCE WEEKLY FOR WEEKS 1-4 active Not Available Not Available No t Available Wegovy 0.5 mg/0.5 mL subcutaneous pen injector INJECT 5 ML UNDER THE SKIN ONE TIME PER WEEK active Not Available Not Available No t Available Vitals None Recorded Social History None recorded. Functional Status None recorded. Mental Status None recorded. Family History Nothing Reported. Medical History No medical history recorded. Past Encounters Encounter ID Performer Location Encounter Start Date Encounter Closed Date Diagnosis/Indication Diagnosis SNOMED-CT Code Diagnosis ICD10 Code Diagnosis Note [id number] Delmi Najera, BLADDER CLEANER [facility] [address] [place] [address] 06/03/2024 08:54:33 06/24/2024 13:05:50 Osteoarthritis of left knee joint 8911973177 88812 M17.12 [id number] Franklyn Eagle MD [facility] [address] [place] [address] 06/03/2024 09:03:11 06/24/2024 13:05:40 Osteoarthritis of left knee joint 3902920806 64419 M17.12 [id number] [place] Weiss, [place] [facility] [address] [place] [address] 06/04/2024 12:26:27 06/04/2024 13:20:33 Osteoarthritis of left knee joint 6063511322 21337 M17.12 [id number] David Weiss, [place] [facility] [address] [place] [address] 06/27/2024 14:03:01 06/27/2024 14:49:48 History of left total knee replacement 4331665248 384864 Z96.652 Z47.1 [id number] Dami Curtis PA-C [facility] [address] [place] [address] 06/26/2024 10:13:16 07/21/2024 14:50:44 History of left total knee replacement 3747060048 667073 Z96.343 [id number] David Weiss, DPT [facility] [address] [place] [address] 07/02/2024 13:09:05 07/02/2024 16:49:14 History of left total knee replacement 9085171255 864319 Z96.652 Z47.1 [id number] David Weiss, DPT [place] [address] [place] [address] 07/04/2024 14:29:22 07/04/2024 15:58:17 History of left total knee replacement 8970663985 125443 Z96.652 Z47.1 [id number] David Weiss, DPT [place] [facility] [address] [facility] [place] [address] 07/09/2024 13:28:20 07/09/2024 14:29:46 History of left total knee replacement 1067612432 262900 Z96.652 Z47.1 [id number] David Weiss, DPT [place] [facility] [address] [facility] [place] [address] 07/11/2024 14:08:48 07/11/2024 15:42:43 History of left total knee replacement 4627679606 433001 Z96.652 Z47.1 [id number] David Weiss, DPT [place] [facility] [address] [facility] [place] [address] 07/16/2024 13:23:13 07/16/2024 14:25:33 History of left total knee replacement 0563508048 946095 Z96.652 Z47.1 [id number] David Weiss, DPT [place] [facility] [address] [facility] [place] [address] 07/18/2024 13:26:10 07/18/2024 15:06:24 History of left total knee replacement 5671530251 846428 Z96.652 Z47.1 [id number] David Weiss, DPT [place] [facility] [address] [facility] [place] [address] 07/23/2024 13:38:31 07/23/2024 14:36:16 History of left total knee replacement 4816509065 346231 Z96.652 Z47.1 [id number] MD [facility] [address] [place] [address] 07/24/2024 14:13:47 08/08/2024 14:44:20 History of left total knee replacement 3337006803 143710 Z96.662 [id number] David Fishersheryl, DPT [place] [facility] [address] [facility] [place] [address] 07/28/2024 15:25:42 07/28/2024 17:21:25 History of left total knee replacement 1668743036 023404 Z96.652 Z47.1 [id number] [facility] [address] [place] [address] 07/30/2024 13:18:20 07/30/2024 15:20:45 History of left total knee replacement 3470066434 286465 Z96.652 Z47.1 [id number] [facility] [address] [facility] [place] [address] 08/05/2024 13:40:14 08/05/2024 14:25:57 History of left total knee replacement 3862188675 986086 Z96.652 Z47.1 [id number] [facility] [address] [facility] [place] [address] 08/07/2024 14:12:37 08/07/2024 15:09:39 History of left total knee replacement 7722017330 744445 Z96.652 Z47.1 [id number] David Weiss[facility] [address] [facility] [place] [address] 08/13/2024 16:28:28 08/13/2024 17:33:06 History of left total knee replacement 0990166975 458017 Z96.652 Z47.1 [id number] David Gonzalez[place]arsheryl DPT [facility] [address] [place] [address] 08/15/2024 13:39:23 08/18/2024 08:00:07 History of left total knee replacement 7527667553 704857 Z96.652 Z47.1 [id number] [facility] [address] [place] [address] 08/19/2024 14:31:48 08/19/2024 15:33:18 History of left total knee replacement 4178548510 220285 Z96.652 Z47.1 Health Concerns Section Related Observation LastModified by Organization Detai ls LastModified Time None Recorded Concern Status LastModified by Organization Details LastModified Time None Recorded Advance Directives Directive None Recorded Payers Encounter Date Sequence Insurance Name Policy Number Policy Jones Covered Member ID Jones Member ID Guarantor Name 08/05/2024 1 [place] [facility] Dru Dorsey [id number] Dru Howell Willian 08/07/2024 1 [place] [facility] Dru Howell Willian [id number] Dru Lynda Willian 08/13/2024 1 [place] Dru Howell Willian [id number] Dru Howell Willian 08/15/2024 1 [place] Dru Howell Willian [id number] Dru Howell Willian 08/19/2024 1 [place] [facility] Dru Howell Willian [id number] Dru Howell Willian Notes Date Note Type Note Provider Name and Address Organization Details Recorded Time 08/05/2024 text/html Patient reports he is very stiff today and can barely move his leg. Emy Lora, RESEARCH GEOLOGIST [address], [place], [address], [facility] 08/05/2024 14:23:43 08/07/2024 text/html Patient reports falling while at the dentist yesterday. States having a small abrasion over the proximal tibia, but is able to weight bear normally. Reports that the knee is sore, but wants to try to perform PT exercises. David Weiss, DPT [address], [place], [address], [facility] 08/07/2024 15:06:54 08/13/2024 text/html Patient reports he is having a bad day. David Weiss, DPT [address], [place], [address], [facility] 08/14/2024 09:10:26 08/15/2024 text/html Patient continues to report he is not doing well. He has increased pain in his knee that limits his ADLs. Emy Lora, RESEARCH GEOLOGIST [address], [place], [address], [facility] 08/15/2024 14:29:11 08/19/2024 text/html Patient reports that the knee is improving and less stiff feeling today. David Weiss, [facility] [address], [place], [address], [facility] 08/19/2024 15:28:49
--- OUTSIDE RECORDS SUMMARY | 2024-12-11 15:46 | XMS_ITS | Encounter Summary ---
Author Organization [employer] Address [address] [facility] [address] [place] [address] Care Team Providers Care Dope Edger Name Role Phone Morena Forte Primary Care Provider [phone] Jeremiah Humphrey Unavailable Unavailable Raj Galvin MD Unavailable [phone] Ely Msea Unavailable Reason for Visit * Reason Onset Date Comments pt1 12/19/2022 Encounter Details Date Type Department Care Team (Late st Contact Info) Description 12/19/2022 Telephone [facility] MEDICINE [address] [place] [address] Morena Forte FNP [address] [place], [place] [phone] pt1 Social History Tobacco Use Types Packs/Day [...] encounter Miscellaneous Notes * Telephone Encounter - Dami Nam - 12/19/2022 12:04 PM EST Tc from pt requesting a call back regarding pt1. States is not being picked up. Please contact pt at [phone] documented in this encounter Plan of Treatment Upcoming Encounters Date Type Department Care Team (Late st Contact Info) Description 01/09/2025 10:00 AM EDT Office Visit [facility] MED & PEDS [address] [place], [place] [phone] Morena Forte FNP [address] [place], [place] [phone] documented as of this encounter Visit Diagnoses Not on filedocumented in this encounter Care Teams Dope Edger Relationship Specialty Start Date End Date Morena Forte FNP [address] [place] [address] PCP - General Family Medicine 09/27/22 Jeremiah Humphrey Community Health Worker 04/18/24 Raj Galvin MD [address] [place] [address] Nephrology 08/25/24 Ely Mesa [address] [place] [address] Thoracic Surgery 08/25/24 documented as of this encounter
--- OUTSIDE RECORDS SUMMARY | 2024-12-11 15:47 | XMS_ITS | Encounter Summary ---
Author Organization [email or web address] Address [address] [facility] [address] [place] [address] Care Team Providers Care Health Policy Manager Name Role Phone Morena Forte Primary Care Provider [phone] Jeremiah Humphrey Unavailable Unavailable Raj Galvin MD Unavailable [phone] Ely Mesa Unavailable Reason for Visit * Reason Comments Care Coordination Outreach Encounter Details Date Type Department Care Team (Latest Contact Info) Description 11/12/2024 Patient Outreach [facility] MED & PEDS [address] [place], [place] [phone] Morena Forte FNP [address] [place], [place] [phone] Care Coordination (Outreach) Social History Tobacco Use [...] Progress Notes * Chanel Vega - 11/12/2024 2:48 PM EST CHW Chanel Vega placed outbound call to patient in regards to offer services. CHW introducing herself from [facility] CM Department with CHW's name, department and direct contact number requesting call back. Will re-attempt to contact within 5 days. and address not confirmed. documented in this encounter Plan of Treatment Upcoming Encounters Date Type Department Care Team ([facility] st Contact Info) Description 01/09/2025 10:00 AM EDT Office Visit [facility] MED & PEDS [address] [place] [address] Morena Forte FNP [address] [place] [address] documented as of this encounter Goals Goal [...] documented as of this encounter Care Teams Health Policy Manager Relationship Specialty Start Date End Date Morena Forte FNP [address] [place] [address] PCP - General Family Medicine 09/27/22 Jeremiah Humphrey Community Health Worker 04/18/24 Raj Galvin MD [address] [place] [address] Nephrology 08/25/24 Ely Mesa [address] [place] [address] Thoracic Surgery 08/25/24 documented as of this encounter
--- OUTSIDE RECORDS SUMMARY | 2024-12-11 15:47 | XMS_ITS | Encounter Summary ---
Author Organization [employer] Address [address] [facility] 7t [place] [address] Care Team Providers Care Lawn Service Worker Name Role Phone Morena Forte Primary Care Provider [phone] Jeremiah Humphrey Unavailable Unavailable Raj Galvin MD Unavailable [phone] Unavailable Reason for Visit * Reason Onset Date Comments PT1 03/24/2024 Encounter Details Date Type Department Care Team (Late st Contact Info) Description 03/24/2024 Telephone [facility] [address] [place] [address] Morena Forte FNP [address] [place], [place] [phone] PT1 Social History Tobacco Use Types Packs/Day [...] * Telephone Encounter - Malou Andrea - 03/24/2024 11:34 AM EDT Patient calling requesting PT1 Home Address verified: Y/N: Yes Provider name or facility name: Hemant Gary D[facility] Podiat[facility] Facility Address: [address] [place] [address] Escort needed: Y/N: No Do you have a wheelchair: Y/N: No Cane If yes- Manual or electric: n/a Visits: n/a documented in this encounter Plan of Treatment Upcoming Encounters Date Type Department Care Team ([facility] st Contact Info) Description 01/09/2025 10:00 AM EDT Office Visit [facility] [address] [place] [address] Morena Forte FNP [address] [place] [address] documented as of this encounter Goals Goal [...] documented as of this encounter Care Teams Lawn Service Worker Relationship Specialty Start Date End Date Morena Forte FNP [address] [place] [address] PCP - General Family Medicine 09/27/22 Jeremiah Humphrey Community Health Worker 04/18/24 Raj Galvin MD 100 [facility] [address] [place] [address] Nephrology 08/25/24 Ely Mesa [address] [place] [id number] Thoracic Surgery 08/25/24 documented as of this encounter
== END 2024-12-11 15:07 | disposition home or self-care (01) ==
PROVIDERS: PCP Registered Nurse; Visit Provider Internal Medicine Hypertension Specialist
DX: R80.9 Proteinuria, unspecified (principal)
CPT/HCPCS: 99214

== ENCOUNTER → 2024-12-11 14:36 | Outpatient (BNVA) | payer MEDICAID, SELFPAY | PROVIDERS: PCP Registered Nurse; Visit Provider Internal Medicine Hypertension Specialist | DX: R80.9 Proteinuria, unspecified (principal) | CPT/HCPCS: 99212 ==

== ENCOUNTER 2024-12-30 13:34 | Outpatient (AMB) | payer MEDICAID, SELFPAY ==
[2024-12-30 13:50] VITALS: BP 128/64; PULSE 62; BMI 41.9
--- NOTE | 2024-12-30 13:50 | A.OFFVIS_ITS ---
Vital Signs 12/30/24 13:50 Height 5 ft 8 in Weight 275 lb 9.245 oz BMI 41.9 BP 128/64 Blood Pressure Location Lt brachial Position Sitting Pulse 62 Pulse Source Monitor Intake Visit Reasons: 1 yr followup w/ekg dx: ather cardio disease Allergies Penicillins [PENICILLINS] Allergy (Unknown, Verified 12/11/24 14:53) UNKNOWN Medication List - Last Reconciled 12/30/24 by Rivera Jaime MD albuterol sulfate 90 mcg/actuation (Ventolin HFA) 2 puffs inhalation QID PRN 30 days duloxetine 60 mg PO DAILY fluticasone furoate-vilanterol 200-25 mcg/dose (Breo Ellipta) 1 inh inhalation DAILY 30 days furosemide 20 mg PO DAILY gabapentin 300 mg PO BID linaclotide (Linzess) 290 mcg PO QAM losartan 25 mg PO DAILY methadone 30 mg PO BEDTIME methadone 50 mg PO DAILY multivitamin 1 tab PO DAILY nicotine 1 patch topical DAILY PRN omeprazole 20 mg PO DAILY rosuvastatin 20 mg PO DAILY tirzepatide (weight loss) (Zepbound) mg subcut QWEEK umeclidinium 62.5 mcg/actuation (Incruse Ellipta) 1 inh inhalation DAILY 30 days varenicline tartrate (Chantix Starting Month Box) PO PER PKG DIR HPI Comments Details: rDu returns for follow-up. In the past, he was having shortness of breath and that led to further evaluation including echocardiogram, stress test and coronary CTA. That revealed anomalous coronary artery. He was referred to the [facility] at [facility] but was not recommend any interventions. Overall, he states that he feels just about the same as before. Shortness of breath with moderate to severe exertion but he also has severe obesity and asthma/COPD. More likely from those reasons. Prior echocardiogram had revealed preserved LVEF. Continues to smoke. No angina. [facility] Medical History Pulmonary emboli Osteoarthritis Pleuritic chest pain Post-thoracotomy pain syndrome Asthma-COPD overlap syndrome Lung cancer (~2022) Nicotine dependence, cigarettes, uncomplicated Depression with anxiety Obesity DA (obstructive sleep apnea) Hepatitis C HLD (hyperlipidemia) Methadone maintenance therapy patient History of CVA (cerebrovascular accident) (~2008) Surgical History Hx of appendectomy History of lung surgery History of bilateral hip replacements History of carpal tunnel surgery History of left inguinal hernia repair History of esophagogastroduodenoscopy (EGD) History of colonoscopy Family History Father No problems noted. Mother Family history of high blood pressure Hx of diabetes insipidus Social History Household Members: None Housing: Apartment Do you presently have visiting nurse or other home services: Yes Alcohol intake: former Patient Tobacco Use Status: Current everyday Tobacco user Tobacco use type: Cigarette Cigarette Packs Per Day: 0.5 Cigarettes Per Day: 8 Years Smoked: (onset 13yo, 1ppd x 44yrs, now 3/4ppd, 40pyh) e-Cigarette/Vaping Use: Currently Using service: No Current occupational status: disabled Review of Systems Const Denies weakness ENT Denies dizziness Card Denies chest pain, Denies chest pain with activity, Denies syncope, Denies rapid heart rate, Denies pedal edema, Denies edema, Denies leg edema, Denies lightheadedness, Denies palpitations, Denies dyspnea, Denies dyspnea on exertion and Denies orthopnea Resp Denies cough, Denies dyspnea and Denies dyspnea on exertion GI Denies hematochezia and Denies change in stool character Musc Denies abnormal gait, Denies muscle cramps, Denies muscle weakness, Denies numbness, Denies radiating pain into limb and Denies tingling Neuro Denies abnormal gait, Denies dizziness, Denies syncope, Denies numbness, Denies tingling and Denies weakness Endo Denies palpitations Physical Exam Vital Signs: Last Vital Signs Pulse 62 12/30/24 13:50 BP 128/64 12/30/24 13:50 BMI result Body Mass Index 41.9 Const General: comfortable and no acute distress Orientation/consciousness: patient oriented x3 HEENT Other: Unremarkable Head: Yes normal to inspection Neck Neck: Yes normal visual inspection Chest Chest palpation & inspection: normal inspection of the chest Resp Auscultation: clear to auscultation bilaterally Cardio Palpation: normal PMI Heart sounds: S1 normal heart sound present, S2 normal heart sound present, no gallops, no murmurs and no rubs GI Palpation (GI): Soft to palpation Back/Spine/Pelvis Other: unremarkable Skin General skin exam: no rashes or lesions noted Neuro General: patient oriented x3 Extrem General: Yes normal to inspection Psych Mental Status: mental status grossly normal Office Procedures EKG Details: EKG with underlying sinus rhythm at 62/Min; no significant ST-T changes and otherwise unremarkable. [place] [address]-[id number], Complete Assessment & Plan Assessment & Plan (1) Anomalous right coronary artery: Code(s): Q24.5 - Malformation of coronary vessels Category: Medical (2) Atherosclerotic cardiovascular disease: Code(s): I25.10 - Atherosclerotic heart disease of wiyot coronary artery without angina pectoris Category: Medical (3) Morbid obesity: Code(s): E66.01 - Morbid (severe) obesity due to excess calories Category: Medical (4) Smoker: Code(s): F17.200 - Nicotine dependence, unspecified, uncomplicated Category: Social Hx Plan Cardiac studies reviewed. Echocardiogram with LVEF 60-65% and without any valvular pathology. Myocardial perfusion imaging had shown possible septal ischemia. As he was having significant hip pain, pharmacological stress was performed. 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 Proximal portion travels between the ascending aorta and main pulmonary artery. About 50% narrowing at the most proximal RCA as it travels between the major arteries. In the mid RCA about 60% stenosis from noncalcified plaque. Mild calcification the LAD. Per prior discussion with congenital heart disease clinic/Dr. Arce, no interventions planned at this time. From the cardiac standpoint, mainly aggressive risk factor modification. He must lose weight and we have discussed this in the past and again today. Must stop smoking and again discussed today. Continue statins and last LDL cholesterol 65 mg/dL and triglycerides 74 mg/dL. Follow-up in one year. In the interim, call with concerns. Coding Level of Care Code Est Pt Level 4 (07793) Complex EM visit Add On G2211 Diagnoses Anomalous right coronary artery Q24.5 Atherosclerotic cardiovascular disease I25.10 Morbid obesity E66.01 Smoker F17.200 CPT Codes EKG - CPT: 54785-[id number], Complete ([id number])
--- OUTSIDE RECORDS SUMMARY | 2024-12-30 16:29 | XMS_ITS | Encounter Summary ---
Author Organization [employer] Address [address] [facility] [address]t [place] [address] Care Team Providers Care Music Composition Teacher Name Role Phone Morena Forte Primary Care Provider [phone] Jeremiah Humphrey Unavailable Unavailable Raj Galvin MD Unavailable [phone] Unavailable Reason for Visit * Reason Onset Date Comments pt1 12/19/2022 Encounter Details Date Type Department Care Team (Late st Contact Info) Description 12/19/2022 Telephone [facility] [address] [place] [address] Morena Forte FNP [address] [place], [place] [phone] pt1 Social History Tobacco Use Types Packs/Day [...] being picked up. Please contact pt at [phone] documented in this encounter Plan of Treatment Upcoming Encounters Date Type Department Care Team (Late st Contact Info) Description 01/09/2025 10:00 AM EDT Office Visit [facility] [address] [place], [place] [phone] Morena Forte FNP [address] [place], [place] [phone] documented as of this encounter Visit Diagnoses Not on filedocumented in this encounter Care Teams Music Composition Teacher Relationship Specialty Start Date End Date Morena Forte FNP [address] [place] [phone] PCP - General Family Medicine 09/27/22 Jeremiah Humphrey Community Health Worker 04/18/24 Raj Galvin MD [address] [place] [phone] Nephrology 08/25/24 Ely Mesa [address] [place] [phone] Thoracic Surgery 08/25/24 documented as of this encounter
--- OUTSIDE RECORDS SUMMARY | 2024-12-30 16:29 | XMS_ITS | Encounter Summary ---
Author Organization [employer] [facility] Address [address] [facility] 7[address] [place] [address] Care Team Providers Care Prefitter Name Role Phone Morena Forte Primary Care Provider [phone] Jeremiah Humphrey Unavailable Unavailable Raj Galvin MD Unavailable [phone] Unavailable Encounter Details Date Type Department Care Team ([facility] st Contact Info) Description 02/15/2023 Telephone [facility] [address] [place] [address] Morena Forte FNP [address] [place], [place] [phone] Social History Tobacco Use Types Packs/Day Years [...] [facility] [address] [place], [place] [phone] Morena Forte FNP [address] [place] [address] documented as of this encounter Visit Diagnoses Not on filedocumented in this encounter Care Teams Prefitter Relationship Specialty Start Date End Date Morena Forte FNP [address] [place] [address] PCP - General Family Medicine 09/27/22 Jeremiah Humphrey Community Health Worker 04/18/24 Raj Galvin MD 100 [facility] 200 [place] [address] Nephrology 08/25/24 Ely Mesa [address] [place] [phone] Thoracic Surgery 08/25/24 documented as of this encounter
--- OUTSIDE RECORDS SUMMARY | 2024-12-30 16:29 | XMS_ITS | Encounter Summary ---
Author Organization [employer] [facility] Address [address] [facility] [address] [place] [address] Care Team Providers Care Melting Furnace Skimmer Name Role Phone Morena Forte Primary Care Provider [phone] Jeremiah Humphrey Unavailable Unavailable Raj Galvin MD Unavailable [phone] Unavailable Encounter Details Date Type Department Care Team ([facility] st Contact Info) Description 01/18/2023 Telephone [facility] [address] [place] [address] Morena Forte FNP [address] [place], [place] [phone] Social History Tobacco Use Types Packs/Day Years [...] Description 01/09/2025 10:00 AM EDT Office Visit [facility] [address] [place], [place] [phone] Morena Forte FNP [address] [place] [address] documented as of this encounter Visit Diagnoses Not on filedocumented in this encounter Care Teams Melting Furnace Skimmer Relationship Specialty Start Date End Date Morena Forte FNP [address] [place] [address] PCP - General Family Medicine 09/27/22 Jeremiah Humphrey Community Health Worker 04/18/24 Raj Galvin MD 100 [facility] [address] [place] [address] Nephrology 08/25/24 Ely Mesa [address] [place] [phone] Thoracic Surgery 08/25/24 documented as of this encounter
--- OUTSIDE RECORDS SUMMARY | 2024-12-30 16:29 | XMS_ITS | Clinical Summary ---
Author Organization [employer] Address [address] [facility] [address] [place] [address] Care Team Providers Care Bar Porter Name Role Phone Morena Forte Primary Care Provider [phone] Jeremiah Humphrey Unavailable Unavailable Raj Galvin MD Unavailable [phone] E[address] Mesa Unavailable Allergies Active Allergy [...] sleep. 1 to 2 tablets Active Umeclidinium [place]nee (Incruse Ellipta) 62.5 MCG/ACT aerosol powder Inhale [...] FOOD 90 tablet 3 12/11/19 25 Active Multiple Vitamin (DAILY ANU PO) Take 1 tablet by mouth Once per day. 025 Discontinued(Du plicate order (will not trigger notification to Pharmacy)) Tirzepatide-W eight Management (Zepbound) 2.5 MG/0.5ML solution auto-injector Indications:O besity Inject 0.5 mL (2.5 mg) under the skin 1 (one) time per week. 2 mL 1 11/03/19 25 025 Active Problems Problem Noted Date Diagnosed Date Pulmonary nodule, left 08/25/2024 Overview (08/25/2024): - Followed by Dr. Mesa - CT Chest 08/08/24: stable 4 mm nodule LLL Microscopic hematuria 03/11/2024 Overview (03/11/2024): Following with [facility] - Dr. Guerrero 02/21/24: US renal bilat unremarkable Primary osteoarthritis of left knee 12/28/2023 Assessment & Plan (08/31/2024 8:51 PM EST): S/p left knee TKA with Dr. Eagle (SULAIMAN) at [facility] in May 2024 Previously doing well [...] knee TKA with Dr. Eagle (SULAIMAN) at [facility] in May 2024 Recovery going well, [...] minute. Pending plan and further information from [facility]. Healthcare maintenance 11/11/2023 Overview (03/10/2024): -Colonoscopy: followed by [facility] - booked for upper endoscopy and colonoscopy per consult note Jul 2023 -Lung CA: (+) hx lung CA - CT chest January 2024 Lung RADS 1, due 1 year Persistent proteinuria 11/11/2023 Overview (08/25/2024): Following with [facility] - Dr. Raj Galvin - for proteinuria and microhematuria Imaging studies and urine cytology WNL Suspect proteinuria 2/2 obesity and lung CA Assessment & Plan (03/10/2024 7:25 AM EDT): Followed by [facility] for proteinuria and hematuira. 02/21/24: US [...] Referrals: PS&S sent 09/06/23 (PT1 requested 11/11/23) [facility] sent 03/11/24 (w/ PT1) [...] overlap syndrome 06/06/2023 Overview (07/20/2024): Following with [facility] - Dr. Cayden Pham and Melina Yancey CT scans every 6 months for at least 5 years Assessment & Plan (07/20/2024 8:19 PM EDT): Last available consult note: April 2024. Plan to order overnight oximetry to assess oxygen need at night. 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 JOEL #[id number] (exp: 09/12/24) Assessment & Plan (08/25/2024 5:29 [...] time, interested in having meds sent to [facility] Assessment & Plan (05/20/2023 12:19 PM EDT): Following with Dr. Kendrick, current regimen: ?? Duloxetine 60 mg qam ?? Trazodone 50 mg at bedtime ?? Bupropion XL 300 mg qam Declines interest in Med Box at this time, interested in having meds sent to [facility] pharmacy Assessment & Plan (04/11/2023 2:16 PM EDT): ?? Following with Dr. Kendrick ?? Message sent to her office to discuss returning to previous med regimen as had worked better for pt. ?? Requested refills sent to [facility] pharmacy as pt planning to transfer prescriptions here to start Med Box. Malignant neoplasm of upper lobe of left lung Overview (04/11/2023): ?? 1.1 x 1.2cm lesion in PAXTON noted on LDCT 10/27/22 (hx of cigarette smoking) ?? S/p PAXTON segmentectomy December 2022 at [facility] - resected nodular density revealed invasive adenocarcinoma, tumor size 2 x 1.5 x 1.1 cm ?? Currently s/p surgery, initiated chemotherapy 04/09/23 ?? Followed by [facility] Heme[facility]Onc: Dr. Ulloa, and [facility] Pulm - Dr. Rodarte Assessment & Plan (04/11/2023 2:13 PM EDT): ?? DME request for Ensure ([place] & Vanilla flavor BID) on 04/11/23 Assessment & Plan (04/09/2023 7:38 PM EDT): ?? 1.1 x 1.2cm lesion in PAXTON noted on LDCT 10/27/22 (hx of cigarette smoking) ?? S/p PAXTON segmentectomy December 2022 at [facility] - resected nodular density revealed invasive adenocarcinoma, tumor size 2 x 1.5 x 1.1 cm ?? Currently s/p surgery, with the plan to start chemotherapy ?? Followed by [facility] Heme/Onc: Dr. Ulloa, and [facility] Pulm - Dr. Rodarte Assessment & Plan (03/19/2023 6:18 PM EDT): ?? 1.1 x 1.2cm lesion in PAXTON noted on LDCT 10/27/22 (hx of cigarette smoking) ?? S/p PAXTON segmentectomy December 2022 at [facility] - resected nodular density revealed invasive adenocarcinoma, tumor size 2 x 1.5 x 1.1 cm ?? Currently s/p surgery, with the plan to start chemotherapy ?? Followed by [facility] Heme/Onc: Dr. Ulloa, and [facility] Pulm - Dr. Rodarte Pulmonary emboli 03/19/2023 Assessment & Plan (03/11/2024 11:21 AM EDT): Identified during ED visit 02/22/23 Bilateral multiple pulmonary emboli (primarily left) Eliquis managed by [facility] Heme[facility]Onc - discontinued December 2023 Assessment & Plan (05/14/2023 10:09 AM EDT): ?? Identified during ED visit 02/22/23 ?? Bilateral multiple pulmonary emboli (primarily left) ?? Discharged on Eliquis, further rx to be managed by [facility] Heme[facility]c (although last prescription sent in through PCP office) Assessment & Plan (04/09/2023 7:48 PM EDT): ?? Identified during ED visit 02/22/23 ?? Bilateral multiple pulmonary emboli (primarily left) ?? Discharged on Eliquis, further rx to be managed by [facility] Heme[facility]Onc Assessment & Plan (03/19/2023 6:21 PM EDT): ?? Identified during ED visit 02/22/23 ?? Bilateral multiple pulmonary emboli (primarily left) ?? Discharged on Eliquis, further rx to be managed by [facility] Heme[facility]Onc ?? ED precautions reviewed Anomalous origin of right coronary artery 2022 Assessment & Plan (12/28/2023 8:59 AM EST): BP elevated in office Initially referred to [facility] Cards, subsequently referred to [facility] adult congential heart disease clinic Referral back to [facility] cardiology placed 03/19/23 due to elevated BP readings Continues with furosemide, may consider addition of second agent if home BP readings elevated as well Referral to Cards re-placed on 12/28/23 ED/urgent care precautions Assessment & Plan (06/10/2023 8:26 AM EDT): ?? BP elevated in office ?? Initially referred to [facility], subsequently referred to [facility] adult congential heart disease clinic ?? Referral back to [facility] cardiology placed 03/19/23 due to elevated BP readings ?? Continues with furosemide, may consider addition of second agent if home BP readings elevated as well Assessment & Plan (03/19/2023 6:31 PM EDT): ?? Initially referred to [facility], subsequently referred to [facility] adult congential heart disease clinic ?? Referral back to [facility] cardiology placed 03/19/23 due to elevated BP readings ?? Continues with furosemide 20mg daily History of lobectomy of lung 02/11/2023 Overview (02/11/2023): -Left upper lobectomy at [facility] December 2022 Tobacco use 12/11/2022 Overview [...] as pharmacomtherapy, [facility] smoking cessation group, and [facility] pharmacy smoking cessation clinic -Interested in NRT patches as monotherapy, sent to pharmacy Assessment & Plan (11/11/2023 12:57 PM EST): -Continues with smoking cessation efforts, currently approx 10 cigg/day -Encouraged smoking cessation resources such as pharmacomtherapy, [facility] smoking cessation group, and [facility] pharmacy smoking cessation clinic -Interested in NRT patches as monotherapy, sent to pharmacy Assessment & Plan (09/06/2023 7:06 PM EST): -Continues with smoking cessation efforts, currently approx 6 cigg/day -Interested in Chantix, sent to pharmacy Assessment & Plan (06/10/2023 8:23 AM EDT): -Continues with smoking cessation efforts, currently approx 8 cigg/day -Interested in Chantix, spoke with [facility] pharmacy and verbal order given for starter pack of varenicline Assessment & Plan (12/11/2022 8:31 AM EST): -Continues with smoking cessation efforts, down to 6-7 cigg/day -Discussed smoking cessation resources available at [facility] such as smoking cessation clinic History [...] Encounters Date Type Department Care Team Description 12/29/2024 Refill [facility] [address] [place] [address] Morena Forte FNP Severe obesity (CMS/HCC) 12/16/2024 Telephone [facility] [address] [place] [address] Morena Forte FNP 12/10/2024 Refill [facility] [address], [place] [phone] Morena Forte FNP 11/26/2024 Patient Outreach [facility] [address], [place] [phone] Morena Forte FNP Care Coordination (CHW outreach for SDOH PT-1 and food needs-referral completed /) 11/26/2024 Telephone [facility] [address] [place] [phone] Morena Forte FNP PT1 11/25/2024 Refill [facility] [address] [place] [address] Morena Forte FNP 11/19/2024 Patient Outreach [facility] [address] [place] [address] Morena Forte TEXTILE ENGRAVER Care Coordination (Outreach ) 11/14/2024 10:00 AM EST Office Visit [facility] [address] [place] [address] Morena Forte FNP Cellulitis of left lower extremity (Primary Dx) 11/14/2024 Patient Outreach [facility] [address] [place] [address] Morena Forte FNP Care Coordination (Outreach) 11/14/2024 Travel 11/14/2024 Patient Outreach [address] [phone] Morena Forte FNP Transition Of Care (Tcm) 11/13/2024 Telephone [facility] [address] [place] [phone] Olga Shaffer MA Chart Prep 11/13/[address] [phone] Morena Forte FNP Call Back Request 11/13/2024 Refill [facility] [address] [place] [address] Morena Forte FNP Lower extremity edema 11/12/2024 Patient Outreach [facility] [address] [place] [phone] Morena Forte TEXTILE ENGRAVER Care Coordination (Outreach) 11/12/2024 Patient Outreach [facility] [address] [place] [phone] Morena Forte, TEXTILE ENGRAVER Care Coordination (Outreach) 11/11/2024 Travel 11/11/2024 Telephone [facility] [address] [place] [phone] Morena Forte FNP Nurse Triage 11/07/2024 2:45 PM EST Office Visit [facility] [address], [place] [phone] Morena Forte FNP Cellulitis of left lower extremity (Primary Dx); Blister 11/07/2024 Orders Only [facility] [address], [place] [phone] Morena Forte FNP 11/07/2024 Travel 10/28/2024 Telephone [facility] [address] [place] [phone] Morena Forte FNP Medication Question 10/20/2024 Telephone [facility] [address], [place] [phone] Morena Forte FNP 10/02/2024 Patient Outreach [facility] [address] [place] [phone] Morena Forte FNP Transition Of Care (Tcm) (HDF scheduled) from Last 3 Months Immunizations Name Administration [...] 10:00 AM EDT Office Visit [facility] [address] [place] [address] Morena Forte, TEXTILE ENGRAVER [address] [place] [address] Health Maintenance Due Date Last Done Comments [...] Free T4 1.52 0.32 - 4.0 uIU/mL [facility] Blood Venous blood specimen / Unknown 11/07/2024 4:09 PM EST 11/07/2024 5:50 PM EST us Morena Forte TEXTILE ENGRAVER LAB BLOOD ORDERABLES Final Res ult [facility] [address] [place] [phone] * Hemoglobin A1c (11/07/2024 4:09 PM EST) Hemoglobin A1c 5.7 <6.0 % [facility] Comment:Hemoglobin A1C Refer ence Range Adults: 4.8 - 6.0 % Non diabetic: < 6.0 % Goal: < 7.0 %Additional Action Suggested: > 8.0 %Note: Hemoglobin A1c results are invalid for patients with abnormal amounts of HbF. Blood transfusions may impact the HbA1c concentration in the patient sample. Estimated Average Glucose 117 mg/dL [facility] Comment:eAG = Estimated ave rage glucose which is %A1C expressed asaverage glucose, using the formula of the G1J-AtudhztYmnozui Glucose study (ADAG), Diabetes Care, Vol.31,#8,May. 2007 Blood Venous blood specimen / Unknown 11/07/2024 4:09 PM EST 11/07/2024 5:50 PM EST Morena Forte TEXTILE ENGRAVER LAB BLOOD ORDERABLES Final Res ult [facility] [address] [place] [phone] * Lipid Panel, Standard (11/07/2024 4:09 PM EST) Triglycerides 74 <150 mg/dL [facility] Comment:Desirable Triglyceri de: less than 150 mg/dLBorderline High Triglyceride 150-199 mg/dLHigh Triglyceride: 200-499 mg/dLVery High Triglyceride: greater than or equal to 5OO mg/dL Cholesterol 150 <200 mg/dL [facility] Comment:Desirable Cholestero l: less than 200 mg/dLBorderline High Cholesterol: 200-239 mg/dLHigh Cholesterol: greater than 239 mg/dL LDL Cholesterol Calculated 65 <100 mg/dL [facility] Comment:Desirable LDL: less than 100 mg/dLNear Optimal/Above Optimal LDL: 110- 129 mg/dLBorderline High LDL: 130-159 mg/dLHigh LDL: 160-189 mg/dLVery High LDL: greater than or equal to 190 mg/dL HDL Cholesterol 71 >40 mg/dL [facility] Comment:Desirable HDL: great er than 40 mg/dL Note: This HDL assay may give artificially low results in patients with liver disease. Blood Venous blood specimen / Unknown 11/07/2024 4:09 PM EST 11/07/2024 5:50 PM EST us Morena Cyndiroyer TEXTILE ENGRAVER LAB BLOOD ORDERABLES Final Res ult [facility] [address] [place] [phone] * (ABNORMAL) Comprehensive Metabolic Panel (11/07/2024 4:09 PM EST) Sodium 140 135 - 145 mmol/L [facility] Potassium 4.6 3.3 - 5.1 mmol/L [facility] Chloride 103 96 - 108 mmol/L [facility] Carbon Dioxide 30(H) 22 - 29 mmol/L [facility] Anion Gap 12 12 - 20 [facility] Urea Nitrogen (BUN) 17(H) 9 - 16 mg/dL [facility] Creatinine, Serum 1.04 0.5 - 1.4 mg/dL [facility] Estimated Glomerular Filt Rate >60 [facility] Comment:Chronic Kidney Disea se: Estimated GFR < 60 mL/min/[id number] Kidney Disease: Estimated GFR < 15 mL/min/1.73m2 Glucose 89 60 - 115 mg/dL [facility] Calcium 9.6 8.4 - 10.2 mg/dL [facility] Bilirubin, Total 0.3 0.0 - 1.0 mg/dL [facility] Aspartate Amino Transferase 26 5 - 37 U/L [facility] Alanine Aminotransferase 25 0 - 40 U/L [facility] Total Protein 8.1(H) 6.5 - 8.0 g/dL [facility] Albumin Level 4.4 3.5 - 5.0 g/dL [facility] Alkaline Phosphatase 90 39 - 117 U/L [facility] Blood Venous blood specimen / Unknown 11/07/2024 4:09 PM EST 11/07/2024 5:50 PM EST [facility]na [facility] BLOOD ORDERABLES Final Res ult Performing Organization Address [facility]/ZIP Co de Phone Number [facility] [address] [place] [phone] * Gram stain (11/07/2024 3:49 PM EST) 11/07/2024 3:49 PM EST 11/07/2024 5:53 PM EST Comment:Calf Left Narrative [facility] - 11/12/2024 7:24 AM EST CELLULITIS OF LEFT LOWER EXTREMITY Gram stain results: No polys 2+ epithelial cells No organisms seen CELLULITIS OF LEFT LOWER EXTREMITY Routine Culture Report - external Routine Culture 1+ Mixed skin maribel Enterococcus faecalis Quant Org ID 1+ Enterococcus faecalis: Ampicillin <=2(S) Enterococcus faecalis: Vancomycin 1(S) Specimen Source: Calf Left Morena [facility] MICROBIOLOGY - GENERAL ORD ERABLES Final Result Performing Organization Address [facility] Co de Phone Number [facility] [address] [place] [phone] * HIV AB/AG (12/05/2019 1:56 PM EST) HIV AG/AB NONREACTIVE NR [facility] LAB [...] detection of this assay. ?? [employer] HIV Ag/Ab Combo assay result and supplemental assay results should be interpreted in conjunction with the patient's clinical presentation, history and other laboratory results. ??If the results are inconsistent with clinical evidence, additional testing is suggested to confirm the result. 12/05/2019 1:56 PM EST us Yves Martin MD HISTORICAL/NON ORDERABLE LABS Fi nal Result [facility] [address] from Last 3 Months or Most Recently Relevant to Health Maintenance Insurance [facility] STANDARD Care Teams Bar Porter Relationship Specialty Start Date End Date Morena Forte FNP [address] [place] [address] PCP - General Family Medicine 09/27/22 Jeremiah Humphrey Community Health Worker 04/18/24 Raj Galvin MD [address] [facility] [address] [place] [phone] Nephrology 08/25/24 Ely Mesa [address] [place] [address] Thoracic Surgery 08/25/24
--- OUTSIDE RECORDS SUMMARY | 2024-12-30 16:29 | XMS_ITS | Clinical Summary ---
Author Organization [facility] Address [address] [place] [phone] Phone Care Team Providers Care Agricultural Economics Professor Name Role Phone Morena Forte RN Primary Care Provider Allergies Active Allergy Reactions Criticality Noted Date Comments Penicillins 12/07/2022 Medications duloxetine HCl (CYMBALTA ORAL) Take by mouth. Active fluticasone furoate-vilante roL (BREO ELLIPTA) 100-25 mcg/dose inhaler Inhale into the lungs. Active furosemide (LASIX) 20 mg tablet Take 1 Tablet by mouth daily. Active gabapentin (NEURONTIN) 100 mg capsule Take 1 Capsule by mouth 3 times daily. Active methadone (DOLOPHINE) 10 mg tablet Take 9 Tablets by mouth daily. Active rosuvastatin (CRESTOR) 10 mg tablet Take 1 Tablet by mouth daily. Active semaglutide (Wegovy) 0.5 mg/0.5 mL injection pen Inject into the skin. Active sennosides 17.2 mg tablet Take 1 Tablet by mouth every evening. Active traZODone (DESYREL) 100 mg tablet Take 1 Tablet by mouth at bedtime as needed. Active Active Problems Problem Noted Date Diagnosed Date Leg wound, right 08/19/2024 Overview (12/16/2024): Last Assessment & Plan: No s/sx infection, but slow to heal and has been present for over a month. Exam indicates possible venous stasis issues. Defer to PCP for ongoing evaluation and management of this potential issue. Lung nodule seen on imaging study 12/07/2022 Immunizations Name Administration Dates Next Due Pfizer SARS-CoV-2 COVID-19, mRNA, LNP-S, preservative free 12/10/2020,11/19/2020 Surgical History Surgery Date Site/Laterality Comments HIP ARTHROPLASTY PROCEDURE: HISTORICAL HIP REPLACEMENT CARPAL TUNNEL RELEASE Bilateral PROCEDURE: HISTORICAL CARPAL TUNNEL REL COLONOSCOPY N/A PROCEDURE: HISTORICAL COLONOSCOPY HERNIA REPAIR PROCEDURE: HISTORICAL HERNIA REPAIR/ING APPENDECTOMY PROCEDURE: MS APPENDECTOMY Medical History Medical History Date Comments Depression with anxiety DX:Depre ssion with anxiety Viral hepatitis C without hepatic coma DX:Viral hepatitis C without hepatic coma H/O: CVA (cerebrovascular accident) DX:H/O: CVA (cerebrovascular accident) HLD (hyperlipidemia) DX:HLD (hyp erlipidemia) 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 ([facility]) DX:Methadone maintenance the rapy patient ([facility]) Nicotine dependence DX:Nicotine dependence Obesity DX:Obesity Sleep disorder breathing DX:Slee p disorder breathing COPD (chronic obstructive pu lmonary disease) ([facility]) DX:COPD (chronic obstructive pulmonary disease) ([facility]) Lung cancer ([facility]) DX:Lung ca ncer ([facility]) Mild intermittent asthma, uncomplicated DX:Mild intermittent asthma, uncomplicated Family History Medical History Relation Name Comments No Known Problems Father Diabetes Mother Hypertension Mother Relation Name Status Comments Father Mother Social History Tobacco Use Types Packs/Day Years Used Date Smoking Tobacco: Some Days Cigarettes 1 47.2 Started: 10/22/1977 Smokeless Tobacco: Never Alcohol Use [...] Upcoming Encounters Date Type Department Care Team ([facility] [place] st Contact Info) Description 01/23/2025 5:15 PM EDT Appointment [facility] CT Scan [address] [place] [phone] 02/05/2025 10:45 AM EDT Office Visit Thoracic Surgery - [place] [address] [facility] [address] [place] [phone] Amara Castorena PA [address] [facility], [address] [place] [address] Health Maintenance Due Date Last Done Comments [...] Documents on File Type Date Recorded Patient Bill Hiker Expl anation Health Care Decision (hx) 08/04/2018 [...] (hx) 08/04/2018 AD ORR DIRECTIVE Care Teams Agricultural Economics Professor Relationship Specialty Start Date End Date Morena Forte RN [address] [place] [phone] PCP - General 03/12/24
--- OUTSIDE RECORDS SUMMARY | 2024-12-30 16:29 | XMS_ITS | Encounter Summary ---
Author Organization [employer] Address [address] 7t [place] [address] Care Team Providers Care Circus Trainer Name Role Phone Morena Forte Primary Care Provider [phone] Jeremiah Humphrey Unavailable Unavailable Raj Galvin MD Unavailable [phone] Ely [place] Unavailable Encounter Details Date Type Department Care Team (Late st Contact Info) Description 12/16/2024 Telephone [facility] MEDICINE 230 [place] [address] Morena Forte FNP 505 [place], [place] [phone] Social History Tobacco Use Types Packs/Day Years [...] encounter Miscellaneous Notes * Telephone Encounter - Gretchen Young RN - 12/16/2024 3:46 PM EST Pt has no dx of DM to justify need. * Telephone Encounter - Jasen Bird - 12/16/2024 2:50 PM EST Obed Currie with [facility] from sating that they need prescription form and clinical notes regarding Continues glucose monitor. Contact [facility] at [phone] documented in this encounter Plan of Treatment Upcoming Encounters Date Type Department Care Team (Late st Contact Info) Description 01/09/2025 10:00 AM EDT Office Visit [facility] MED & PEDS [address] [place] [address] Morena Forte FNP 505 [place] [address] documented as of this encounter Goals Goal [...] documented as of this encounter Care Teams Circus Trainer Relationship Specialty Start Date End Date Morena Forte FNP [address] [place] [address] PCP - General Family Medicine 09/27/22 Jeremiah Humphrey Community Health Worker 04/18/24 Raj Galvin MD [address] [place] [phone] Nephrology 08/25/24 Ely Mesa [address] [place] [address] Thoracic Surgery 08/25/24 documented as of this encounter
--- OUTSIDE RECORDS SUMMARY | 2024-12-30 16:29 | XMS_ITS | Encounter Summary ---
Author Organization [employer] Address [address] [facility] 7t [place] [address] Care Team Providers Care Fire Alarm Installer Name Role Phone Morena Forte Primary Care Provider [phone] Jeremiah Humphrey Unavailable Unavailable Raj Galvin MD Unavailable [phone] Ely [place] Unavailable Reason for Visit * Reason Onset Date Comments pt1 12/20/2022 Encounter Details Date Type Department Care Team (Late st Contact Info) Description 12/20/2022 Telephone [facility] MEDICINE 230 [place] [address] Morena Forte FNP [address] [place], [place] [phone] pt1 Social History Tobacco Use Types Packs/Day [...] / denial letter via mail. PT-1 Request [id number] Pending - [facility] [address] [facility] [address] * Telephone Encounter - Dami Nam - 12/20/2022 1:54 PM EST Tc from pt requesting pt1 Location: [facility] [address] [facility] [address], [place] [address] Specialty: left lung surgery Time:9: 30 am, 9 am, 6 am Date:01/02/23, 01/08/23, 01/09/23 Publicity Agent: no wheelchair accessible : n/a Please contact pt at [phone] documented in this encounter Plan of Treatment Upcoming Encounters Date Type Department Care Team (Late st Contact Info) Description 01/09/2025 10:00 AM EDT Office Visit [facility] MED & PEDS 505 [place] [address] Morena Forte FNP 505 [place] [address] documented as of this encounter Visit Diagnoses Not on filedocumented in this encounter Care Teams Fire Alarm Installer Relationship Specialty Start Date End Date Morena Forte FNP 230 [place] [address] PCP - General Family Medicine 09/27/22 Jeremiah Humphrey Community Health Worker 04/18/24 Raj Galvin MD [address] [facility] 200 [place] [address] Nephrology 08/25/24 Ely Mesa [address] [place] [address] Thoracic Surgery 08/25/24 documented as of this encounter
--- OUTSIDE RECORDS SUMMARY | 2024-12-30 16:29 | XMS_ITS | Encounter Summary ---
Author Organization [employer] Address [address] [facility] 7t [place] [address] Care Team Providers Care Sales Teacher Name Role Phone Morena Forte Primary Care Provider [phone] Jeremiah Humphrey Unavailable Unavailable Raj Galvin MD Unavailable [phone] Ely Mesa Unavailable Reason for Visit * Reason Onset Date Comments PT1 08/03/2023 Encounter Details Date Type Department Care Team ([facility] st Contact Info) Description 08/03/2023 Telephone [facility] MED [facility] PEDS 505 [place], [place] [phone] Morena Forte FNP 505 [place], [place] [phone] PT1 Social History Tobacco Use Types Packs/Day [...] 09/03 Time: 2 PM Visits: n/a Address: [address] [place] [address] Facility: [facility] primary care Wheel Chair: no Client Server Developer Needed: no paste up artist apprentice location confirmed: [address] [place] [address] documented in this encounter Plan of Treatment Upcoming Encounters Date Type Department [facility] Description 01/09/2025 10:00 AM EDT Office Visit [facility] MED & PEDS 505 [place] [address] Morena Forte FNP 505 [place] [address] documented as of this encounter Goals Goal [...] documented as of this encounter Care Teams Sales Teacher Relationship Specialty Start Date End Date Morena Forte FNP [address] [place] [address] PCP - General Family Medicine 09/27/22 Jeremiah Humphrey Community Health Worker 04/18/24 Raj Galvin MD 100 [facility] 200 [place] [address] Nephrology 08/25/24 Ely Mesa [address] [place] [address] Thoracic Surgery 08/25/24 documented as of this encounter
--- OUTSIDE RECORDS SUMMARY | 2024-12-30 16:29 | XMS_ITS | Encounter Summary ---
Author Organization [employer] Address [address] [facility] [address] [facility] [address] 7t [place] [address] Care Team Providers Care Guide Delegate Name Role Phone Morena Forte Primary Care Provider [phone] Jeremiah Humphrey Unavailable Unavailable Raj Galvin MD Unavailable [phone] Ely Mesa Unavailable Reason for Visit * Reason Comments Med Refill Encounter Details Date Type Department Care Team (Late st Contact Info) Description 12/29/2024 Refill [facility] MEDICINE 230 [place] [address] Morena Forte FNP [address] [place] [address] Severe obesity (CMS/HCC) Social History Tobacco Use [...] Upcoming Encounters Date Type Department Care Team ([facility] st Contact Info) Description 01/09/2025 10:00 AM EDT Office Visit [facility] MED & PEDS 505 [place] [address] Morena Forte FNP 505 [place] [address] documented as of this encounter Goals Goal [...] documented as of this encounter Care Teams Guide Delegate Relationship Specialty Start Date End Date Morena Forte FNP 230 [place] [address] PCP - General Family Medicine 09/27/22 Jeremiah Humphrey Community Health Worker 04/18/24 Raj Galvin MD [address] [address] Nephrology 08/25/24 Ely Mesa [address] [place] [address] Thoracic Surgery 08/25/24 documented as of this encounter
--- OUTSIDE RECORDS SUMMARY | 2024-12-30 16:30 | XMS_ITS | Encounter Summary ---
Author Organization [employer] [facility] Address [address] [facility] 7t [place] [address] Care Team Providers Care Detail Drafter Name Role Phone Morena Forte Primary Care Provider [phone] Jeremiah Humphrey Unavailable Unavailable Raj Galvin MD Unavailable [phone] Ely [place]a Unavailable Reason for Visit * Reason Onset Date Comments Medication Question 02/23/2023 Other 02/23/2023 Encounter Details Date Type Department Care Team ([facility] st Contact Info) Description 02/23/2023 Telephone [facility] MEDICINE 230 [place] [address] Morena Forte FNP [address] [place], [place] [phone] Medication Question; Other Social History Tobacco Use [...] to inform PCP he is currently at [facility] since 02/20/23 admitted due to breathingtrouble. Patient is due to discharge today but has not yet. Patient is requesting a call back, in regards to medication questions. No other details provided. documented in this encounter Plan of Treatment Upcoming Encounters Date Type Department Care Team (Late st Contact Info) Description 01/09/2025 10:00 AM EDT Office Visit [facility] MED & PEDS 505 [place] [address] Morena Forte FNP 505 [place] [address] documented as of this encounter Visit Diagnoses Not on filedocumented in this encounter Care Teams Detail Drafter Relationship Specialty Start Date End Date Morena Forte FNP 230 [place] [address] PCP - General Family Medicine 09/27/22 Jeremiah Humphrey Community Health Worker 04/18/24 Raj Galvin MD 100 [facility] 200 [place] [address] Nephrology 08/25/24 Ely Mesa [address] [place] [address] Thoracic Surgery 08/25/24 documented as of this encounter
--- OUTSIDE RECORDS SUMMARY | 2024-12-30 16:30 | XMS_ITS | Encounter Summary ---
Author Organization [employer] [facility] Address [address] [facility] 7t [place] [address] Care Team Providers Care Inside Wireman Name Role Phone Morena Forte Primary Care Provider [phone] Jeremiah Humphrey Unavailable Unavailable Raj Galvin MD Unavailable [phone] E[place] Unavailable Reason for Visit * Reason Comments Med Refill Encounter Details Date Type Department Care Team (Late st Contact Info) Description 02/26/[address] [facility] MEDICINE 230 [place] [address] Morena Forte FNP [address] [place] [address] Social History Tobacco Use Types Packs/Day Years [...] 02/26/2023 10:33 AM EDT Pt discharged from [facility] 02/23/23 Dx: Pulmonary emboli, lung cancer. Discharge [...] 10:00 AM EDT Office Visit [facility] MED & PEDS 505 [place] [address] Morena Forte FNP 505 [place] [address] documented as of this encounter Visit Diagnoses Not on filedocumented in this encounter Care Teams Inside Wireman Relationship Specialty Start Date End Date Morena Forte FNP [address] [place] [address] PCP - General Family Medicine 09/27/22 Jeremiah Humphrey Community Health Worker 04/18/24 Raj Galvin MD 100 [facility] 200 [place] [address] Nephrology 08/25/24 Ely Mesa [address] [place] [address] Thoracic Surgery 08/25/24 documented as of this encounter
--- OUTSIDE RECORDS SUMMARY | 2024-12-30 16:30 | XMS_ITS | Encounter Summary ---
Author Organization [employer] Address [address] [facility] 7t [place] [address] Care Team Providers Care Printed Circuit Boards Inspector Name Role Phone Morena Forte Primary Care Provider [phone] Jeremiah Humphrey Unavailable Unavailable Raj Galvin MD Unavailable [phone] Ely Mesa Unavailable Reason for Visit * Reason Onset Date Comments PT-1 01/25/2024 Encounter Details Date Type Department Care Team (Late st Contact Info) Description 01/25/2024 Telephone [facility] MEDICINE 230 [place] [address] Morena Forte FNP 505 [place], [place] [phone] PT-1 Social History Tobacco Use Types Packs/Day [...] Y/N: Yes Provider name or facility name: [facility] Facility Address: [address] Escort needed: Yes Do you have a wheelchair: Y/N: No If yes- Manual or electric: Uses Lopez Visits: 5 Monthly Patient calling requesting PT1 Home Address verified: Y/N: Yes Provider name or facility name: [facility]: [facility]ise [facility] Facility Address: [address] [place] [address] Escort needed: No Do you have a wheelchair: Y/N: No If yes- Manual or electric: Uses Lopez Visits: 3 monthly Patient calling requesting PT1 Home Address verified: Y/N: Yes Provider name or facility name: [facility] Facility Address: [address] [place] [address] Escort needed: Y/N: No Do you have a wheelchair: Y/N: No If yes- Manual or electric: Uses lopez Visits: 2 monthly Patient calling requesting PT1 Home Address verified: Y/N: Yes Provider name or facility name: [facility] Facility Address: [address] [facility] Escort needed: Y/N: No Do you have a wheelchair: Y/N: No If yes- Manual or electric: Uses Visits: Twice a month Patient calling requesting PT1 Home Address verified: Y/N: Yes Provider name or facility name: [facility] Facility Address: [address] [place] [address] Escort needed: Y/N: No Do you have a wheelchair: Y/N: No If yes- Manual or electric: Uses lopez Visits: 1 monthly documented in this encounter Plan of Treatment Upcoming Encounters Date Type Department Care Team ([facility] st Contact Info) Description 01/09/2025 10:00 AM EDT Office Visit [facility] MED & PEDS 505 [place] [address] Morena Forte FNP 505 [place] [address] documented as of this encounter Goals Goal [...] documented as of this encounter Care Teams Printed Circuit Boards Inspector Relationship Specialty Start Date End Date Morena Forte FNP 230 [place] [address] PCP - General Family Medicine 09/27/22 Jeremiah Humphrey Community Health Worker 04/18/24 Raj Galvin MD 100 [facility] 200 [place] [address] Nephrology 11/4/24 Ely Mesa [address] [place] [address] Thoracic Surgery 08/25/24 documented as of this encounter
--- OUTSIDE RECORDS SUMMARY | 2024-12-30 16:30 | XMS_ITS | Encounter Summary ---
Author Organization [employer] Address [address] [facility] 7t [place] [address] Care Team Providers Care Mica Inspector Name Role Phone Morena Forte Primary Care Provider [phone] Jeremiah Humphrey Unavailable Unavailable Raj Galvin MD Unavailable [phone] Ely Mes[place] Unavailable Reason for Visit * Reason Onset Date Comments Nurse Triage 11/22/2023 Encounter Details Date Type Department Care Team (Late st Contact Info) Description 11/22/2023 Telephone [facility] MEDICINE 230 [place] [address] Morena Forte FNP [address] [place], [place] [phone] Nurse Triage Social History Tobacco Use Types [...] 01/09/2025 10:00 AM EDT Office Visit [facility] MED & PEDS 505 [place] [address] Morena Forte FNP 505 [place] [address] documented as of this encounter Goals Goal [...] documented as of this encounter Care Teams Mica Inspector Relationship Specialty Start Date End Date Morena Forte FNP 230 [place] [address] PCP - General Family Medicine 09/27/22 Jeremiah Humphrey Community Health Worker 04/18/24 Raj Galvin MD 100 [facility] 200 [place] [address] Nephrology 08/25/24 Ely Mesa [address] [place] [address] Thoracic Surgery 08/25/24 documented as of this encounter
--- OUTSIDE RECORDS SUMMARY | 2024-12-30 16:30 | XMS_ITS | Encounter Summary ---
Author Organization [employer] [facility] Address [address] [facility] 7t [place] [address] Care Team Providers Care Business Continuity Consultant Name Role Phone Morena Forte Primary Care Provider [phone] Jeremiah Humphrey Unavailable Unavailable Raj Galvin MD Unavailable [phone] Ely Mesa Unavailable Reason for Visit * Reason Onset Date Comments PT1 06/06/2023 Encounter Details Date Type Department Care Team (Late st Contact Info) Description 06/06/2023 Telephone [facility] MEDICINE 230 [place] [address] Morena Forte FNP [address] [place], [place] [phone] PT1 Social History Tobacco Use Types Packs/Day [...] Time: 3:00 PM address: [address], [place] [address] specialty: eye care # visits: n/a pet walker: no Wheelchair: no documented in this encounter Plan of Treatment Upcoming Encounters Date Type Department Care Team (Late st Contact Info) Description 01/09/2025 10:00 AM EDT Office Visit [facility] MED & PEDS [address] [place], [place] [phone] Morena Forte FNP 505 [place], [place] [phone] documented as of this encounter Goals Goal [...] documented as of this encounter Care Teams Business Continuity Consultant Relationship Specialty Start Date End Date Morena Forte FNP [address] [place] [address] PCP - General Family Medicine 09/27/22 Jeremiah Humphrey Community Health Worker 04/18/24 Raj Galvin MD 100 [facility] 200 [place] [address] Nephrology 08/25/24 Ely Mesa [address] [place] [address] Thoracic Surgery 08/25/24 documented as of this encounter
--- OUTSIDE RECORDS SUMMARY | 2024-12-30 16:30 | XMS_ITS | Encounter Summary ---
Author Organization [employer] Address [address] [facility] 7t [place] [address] Care Team Providers Care Language And Literature Division Chair Name Role Phone Morena Forte Primary Care Provider [phone] Jeremiah Humphrey Unavailable Unavailable Raj Galvin MD Unavailable [phone] Ely Mesa Unavailable Reason for Visit * Reason Onset Date Comments PT1 05/28/2023 Encounter Details Date Type Department Care Team (Late st Contact Info) Description 05/28/2023 Telephone [facility] MEDICINE 230 [place] [address] Morena Forte FNP [address] [place], [place] [phone] PT1 Social History Tobacco Use Types Packs/Day [...] be a van transportation not a car Location:[address] [place] [address] Specialty: Podiatry Date&Time:N/a Curtain Roller Assembler:No Pt will be using a cane PT1 Date: 06/01/2023 Time: 2:15 pm address: [address] [place] [address] specialty: Pulmonogists head bone grinder: N/A Wheelchair:N/A documented in this encounter Plan of Treatment Upcoming Encounters Date Type Department Care Team (Late st Contact Info) Description 01/09/2025 10:00 AM EDT Office Visit [facility] MED & PEDS 505 [place] [address] Morena Forte FNP 505 [place], [place] documented as of this encounter Visit Diagnoses Not on filedocumented in this encounter Additional Health Concerns Assessment Noted Time PHQ-9 Depression Total Score: 16 023 9:44 AM EDT documented as of this encounter Care Teams Language And Literature Division Chair Relationship Specialty Start Date End Date Morena Forte FNP 230 [place] [address] PCP - General Family Medicine 09/27/22 Jeremiah Humphrey Community Health Worker 04/18/24 Raj Galvin MD 100 [facility] 200 [place] [address] Nephrology 08/25/24 Ely Mesa [address] [place] [address] Thoracic Surgery 08/25/24 documented as of this encounter
--- OUTSIDE RECORDS SUMMARY | 2024-12-30 16:30 | XMS_ITS | Encounter Summary ---
Author Organization [employer] Address [address] [facility] 7t [place] [address] Care Team Providers Care Necktie Centralizing Machine Operator Name Role Phone Morena Forte Primary Care Provider [phone] Jeremiah Humphrey Unavailable Unavailable Raj Galvin MD Unavailable [phone] Ely Mesa Unavailable Reason for Visit * Reason Onset Date Comments Nurse Triage 11/11/2024 Encounter Details Date Type Department Care Team (Late st Contact Info) Description 11/11/2024 Telephone [facility] MEDICINE 230 [place] [address] Morena Forte FNP [address] [place], [place] [phone] Nurse Triage Social History Tobacco Use Types [...] assessment. Pt states that he is in [facility] due to the pain increasing. RN advised pt to call [facility] when he is discharge and if he [...] pt re: triage. Pt was seen at [facility] ED last month and had follow [...] states that he was not able to pickle sorter antibiotic until yesterday but has since been [...] can't walk) The caller accepted this outcome. [phone] documented in this encounter Plan of Treatment Upcoming Encounters Date Type Department Care Team (Late st Contact Info) Description 01/09/2025 10:00 AM EDT Office Visit [facility] MED & PEDS [address] [place] [address] Morena Forte FNP 505 [place] [address] documented as of this encounter Goals Goal Patient Goal Type Associated Problems Recent Progress Patient-Stated? Author Blood Pressure < 140/90 Blood Pressure 162/98( 025 10:18 AM EST) Eve Bailey, Roem[employer]D documented as of this encounter Visit Diagnoses Not on filedocumented in this encounter Additional Health Concerns Assessment Noted Time PHQ-9 Depression Total Score: 8 06/30/20 24 11:12 AM EDT documented as of this encounter Care Teams Necktie Centralizing Machine Operator Relationship Specialty Start Date End Date Morena Forte FNP [address] [place] [address] PCP - General Family Medicine 09/27/22 Jeremiah Humphrey Community Health Worker 04/18/24 Raj Galvin MD 100 [facility] 200 [place] [address] Nephrology 08/25/24 Ely Mesa [address] [place] [address] Thoracic Surgery 08/25/24 documented as of this encounter
--- OUTSIDE RECORDS SUMMARY | 2024-12-30 16:30 | XMS_ITS | Encounter Summary ---
Author Organization [employer] Address 75 [facility] 7t [place] [address] Care Team Providers Care Injection Specialist Name Role Phone Morena Forte Primary Care Provider [phone] Jeremiah Humphrey Unavailable Unavailable Raj Galvin MD Unavailable [phone] Ely Mesa Unavailable Reason for Visit * Reason Onset Date Comments PT1 05/29/2023 Encounter Details Date Type Department Care Team (Late st Contact Info) Description 05/29/2023 Telephone [facility] MEDICINE 230 [place] [address] Morena Forte FNP [address] [place], [place] [phone] PT1 Social History Tobacco Use Types Packs/Day [...] Time: 11 am Visits: Address: [place] [address] Facility: Wheel Chair: n/a Senior Water/Wastewater Engineer Needed: no *Patient states PCP needs to request for patient to only get picked up in a van due to his hip and unable to fit comfortably in a sedan. Patient states prior PCP had one in place but it has . PT1 Address verified Date: 06/19/23 Time: 11:30 am Visits: Address: [place] [address] Facility: Wheel Chair: n/a Senior Water/Wastewater Engineer Needed: no documented in this encounter Plan of Treatment Upcoming Encounters Date Type Department Care Team (Late st Contact Info) Description 01/09/2025 10:00 AM EDT Office Visit [facility] MED & PEDS 505 [place] [address] Morena Forte FNP 505 [place] [address] documented as of this encounter Visit Diagnoses Not on filedocumented in this encounter Additional Health Concerns Assessment Noted Time PHQ-9 Depression Total Score: 16 023 9:44 AM EDT documented as of this encounter Care Teams Injection Specialist Relationship Specialty Start Date End Date Morena Forte FNP [address] [place] [address] PCP - General Family Medicine 09/27/22 Jeremiah Humphrey Community Health Worker 04/18/24 Raj Galvin MD 100 [facility] 200 [place] [address] Nephrology 08/25/24 Ely Mesa [address] [place] [address] Thoracic Surgery 08/25/24 documented as of this encounter
--- OUTSIDE RECORDS SUMMARY | 2024-12-30 16:30 | XMS_ITS | Data Portability ---
Author Organization ISRAEL Gabe Lanier Ia[facility]ather [facility], [facility] Address [address] [place] [address] Care Team Providers Care Orthodontic Treatment Coordinator Name Role Phone HUBER BLANKENSHIP Referring Provider [phone] [facility] (DENTAL) Primary Care Prov ider Assessment Encounter [...] LastModifiedTime 07/24/2007/24/2024 XR, knee, 3 view http:/ [email or web address] ?Encry pted=s hAaTro YD8dLq bEUv6g %2BXZw aYqtaq 0bqfl% 2Fg9IQ a4ajBk vP9nXo QUaueC m3YtLR FvZlgJ JJ8mAn HZtai3 2a4738 AC0Kqa 3%2BHV qeiKiQ trMwF INTERFACE [facility] Office [address] [facility] [address] [facility] [address], [place], [address], 07/24/2024 14:30:25 07/24/2007/24/2024 XR, knee, 3 view http:/ /[email or web address] ?Encry pted=s hAaTro YD8dLq bEUv6g %2BXZw aYqtaq 0bqfl% 2Fg9IQ a4ajBk vP9nXo QUaueC m3YtLR FvZlgJ JJ8mAn HZtai3 0l0420 AC0Kqa 3%2BHV qeiKiQ trMwF INTERFACE [facility] [address], [place], [address], 07/24/2024 14:30:27 Result Notes None recorded. Problems Name Problem SNOMED Code Status Onset Date Resolution Date Notes Provider Name and Address Organization Details Recorded Time History of left total knee replacemen t 9071251096100 105 Active 2023 Franklyn Eagle MD [address], [facility] [place], [address] , [facility] 4 14:40:55 Problem Notes None recorded. Procedures Surgical History Date Name Laterality Status Provider Name and Address Organization Details Recorded Time 4 59454 Therapeutic Exercise (1:1) completed David Weiss DPT [address] [facility], [place], [address], [facility] 08/06/2024 13:06:24 4 84039 Therapeutic Exercise (1:1) completed Emy Lora PTA [address] [facility], [place], [address], [facility] 08/05/2024 14:23:00 4 59294: Hot or Cold Pack completed Emy Lora PTA [address] [facility], [place], [address], [facility] 08/05/2024 14:23:05 4 82176: Therapeutic Activities (1:1) completed David Weiss DPT [address] [facility], [place], [address], [facility] 07/30/2024 17:25:57 4 67217 Therapeutic Exercise (1:1) completed David Weiss DPT [address], [place], [address], [facility] 07/30/2024 17:25:51 4 48793: Hot or Cold Pack completed David Weiss DPT [address], [place], [address], [facility] 07/29/2024 09:18:32 4 76447 Therapeutic Exercise (1:1) completed David Weiss DPT [address], [place], [address], [facility] 07/28/2024 09:09:40 4 40856: Hot or Cold Pack completed David Weiss DPT [address], [place], [address], [facility] 07/28/2024 09:09:40 4 45644 Therapeutic Exercise (1:1) completed Emy Lora, SHOE LINING FITTER [address], [place], [address], [facility] 07/23/2024 14:18:07 4 26578: Hot or Cold Pack completed Emy Lora, SHOE LINING FITTER [address], [place], [address], [facility] 07/23/2024 14:18:13 4 02045 Therapeutic Exercise (1:1) completed David Weiss DPT [address], [place], [address], [facility] 07/18/2024 14:56:57 4 50429: Hot or Cold Pack completed David Weiss DPT [address], [place], [address], [facility] 07/17/2024 09:25:22 4 15299: Gait training completed David Weiss DPT [address], [place], [address], [facility] 07/18/2024 14:57:04 4 95499 Therapeutic Exercise (1:1) completed David Weiss, DPT [address], [place], [address], [facility] 07/16/2024 14:20:05 4 39707: Hot or Cold Pack completed David Weiss, DPT [address], [place], [address], [facility] 07/15/2024 10:03:58 4 50025 Therapeutic Exercise (1:1) completed David Weiss, DPT [address], [place], [address], [facility] 07/10/2024 11:09:13 4 59539: Hot or Cold Pack completed David Weiss, DPT [address], [place], [address], [facility] 07/10/2024 11:09:13 4 80486 Therapeutic Exercise (1:1) completed Emy Lora, SHOE LINING FITTER [address], [place], [address], [facility] 07/09/2024 14:17:25 4 63731: Hot or Cold Pack completed Emy Lora, SHOE LINING FITTER [address], [place], [address], [facility] 07/09/2024 14:19:16 4 59406 Therapeutic Exercise (1:1) completed Emy Lora, SHOE LINING FITTER [address], [place], [address], [facility] 07/04/2024 15:12:36 4 61385: Hot or Cold Pack completed Emy Geno, SHOE LINING FITTER [address], [place], [address], [facility] 07/04/2024 15:12:41 4 50092 Therapeutic Exercise (1:1) completed Eddi Vallecillo SHOE LINING FITTER [address] [facility], [place], [address], [facility] 07/02/2024 14:27:49 4 24165: Hot or Cold Pack completed Eddi Vallecillo SHOE LINING FITTER [address] [facility], [place], [address], [facility] 07/02/2024 14:54:49 4 15510 Therapeutic Exercise (1:1) completed David Weiss DPT [address] [facility], [place], [address], [facility] 06/27/2024 15:35:14 4 06014: Low complexity PT Eval completed David Weiss DPT [address] [facility], [place], [address], [facility] 06/27/2024 15:34:37 4 03336 Therapeutic Exercise (1:1) completed David Weiss DPT [address] [facility], [place], [address], [facility] 06/04/2024 13:08:24 4 63465: Low complexity PT Eval completed David Weiss DPT [address] [facility], [place], [address], [facility] 06/04/2024 13:08:27 Imaging Results Imaging Date Name Status LastModified by [facility] Details LastModified Time 07/24/2024 XR, knee, 3 view completed INTERFACE [facility] [address] [facility], [place], [address], 07/24/2024 14:30:25 07/24/2024 XR, knee, 3 view completed INTERFACE [facility] [address], [place], [address], 07/24/2024 14:30:27 Procedure Notes None recorded. Medical Equipment None Reported. Allergies Allergen ID Allergen Name Allergen Category Reaction Reaction Severity Criticality Documentation Date Start Date Code Code System Note Provider Name and Address Organization Details Recorded Time 63341 Product containin g penicilli n (product) medicatio n Not available Not available Not available 12/24/20232019 77546 8001 SNOMED Not [facility] 10:54:17 Medications Name Sig Start Date [...] SNOMED-CT Code Diagnosis ICD10 Code Diagnosis Note [id number] Delmi Najera, ROD GREASER [facility] [address] [place] [address] 06/03/2024 08:54:33 06/24/2024 13:05:50 Osteoarthritis of left knee joint 9253255756 81748 M17.12 [id number] Franklyn Eagle MD [facility] [address] [place] [address] 06/03/2024 09:03:11 06/24/2024 13:05:40 Osteoarthritis of left knee joint 9427640918 21354 M17.12 [id number] David Weiss, [facility]PT [facility] [address] [place] [address] 06/04/2024 12:26:27 06/04/2024 13:20:33 Osteoarthritis of left knee joint 0099350595 29192 M17.12 [id number] David Weiss, DPT [facility] [address] [place] [address] 06/27/2024 14:03:01 06/27/2024 14:49:48 History of left total knee replacement 9299475819 944298 Z96.652 Z47.1 [id number] Dami Curtis PA-C [facility] [address] [place] [address] 06/26/2024 10:13:16 07/21/2024 14:50:44 History of left total knee replacement 8901755823 787709 Z96.236 [id number] David Weiss, DPT [facility] [address] [place] [address] 07/02/2024 13:09:05 07/02/2024 16:49:14 History of left total knee replacement 3848151264 165010 Z96.652 Z47.1 [id number] David Weiss, DPT [place] [facility] [address] [place] [address] 07/04/2024 14:29:22 07/04/2024 15:58:17 History of left total knee replacement 3212805504 941703 Z96.652 Z47.1 [id number] David Weiss, DPT [place] [facility] [address] [place] [address] 07/09/2024 13:28:20 07/09/2024 14:29:46 History of left total knee replacement 2544269083 279748 Z96.652 Z47.1 [id number] David Weiss, DPT [place] [facility] [address] [place] [address] 07/11/2024 14:08:48 07/11/2024 15:42:43 History of left total knee replacement 5413201637 643122 Z96.652 Z47.1 [id number] David Weiss, DPT [place] [address] [place] [address] 07/16/2024 13:23:13 07/16/2024 14:25:33 History of left total knee replacement 7070117765 784702 Z96.652 Z47.1 [id number] David Weiss, DPT [place] [facility] [address] [place] [address] 07/18/2024 13:26:10 07/18/2024 15:06:24 History of left total knee replacement 2370822024 367982 Z96.652 Z47.1 [id number] David Weiss, DPT [place] [address] [place] [address] 07/23/2024 13:38:31 07/23/2024 14:36:16 History of left total knee replacement 3046615133 147994 Z96.652 Z47.1 [id number] MD Jenni Brown 2nd floor [address] [place] [address] 07/24/2024 14:13:47 08/08/2024 14:44:20 History of left total knee replacement 6519262591 247349 Z96.385 [id number] David Fishersheryl, DPT [place] [address] [place] [address] 07/28/2024 15:25:42 07/28/2024 17:21:25 History of left total knee replacement 2704953949 214446 Z96.652 Z47.1 [id number] [facility] [address] [place] [address] 07/30/2024 13:18:20 07/30/2024 15:20:45 History of left total knee replacement 9598248825 777019 Z96.652 Z47.1 [id number] [facility] [address] [place] [address] 08/05/2024 13:40:14 08/05/2024 14:25:57 History of left total knee replacement 4909446280 426253 Z96.652 Z47.1 [id number] [facility] [address] [place] [address] 08/07/2024 14:12:37 08/07/2024 15:09:39 History of left total knee replacement 4867625927 215496 Z96.652 Z47.1 [id number] David Weiss[facility] [address] [place] [address] 08/13/2024 16:28:28 08/13/2024 17:33:06 History of left total knee replacement 4604669351 125410 Z96.652 Z47.1 [id number] David Gonzalezscarsheryl DPT [facility] [address] [place] [address] 08/15/2024 13:39:23 08/18/2024 08:00:07 History of left total knee replacement 7170421002 245950 Z96.652 Z47.1 [id number] David Weiss, [facility] [address] [place] [address] 08/19/2024 14:31:48 08/19/2024 15:33:18 History of left total knee replacement 4711328080 580429 Z96.652 Z47.1 Health Concerns Section Related Observation LastModified by Organization Detai ls LastModified Time None Recorded Concern Status LastModified by Organization Details LastModified Time None Recorded Advance Directives Directive None Recorded Payers Encounter Date Sequence Insurance Name Policy Number Policy Jones Covered Member ID Jones Member ID Guarantor Name 08/05/2024 1 [place] [facility] Dru Dorsey [id number] Dru Howell Willian 08/07/2024 1 [place] [facility] Dru Howell Willian [id number] Dru Lynda Willian 08/13/2024 1 [place] Dru Howell Willian [id number] Dru Howell Willian 08/15/2024 1 [place] Dru Howell Willian [id number] Dru Howell Willian 08/19/2024 1 [place] [facility] Dru Howell Willian [id number] Dru Howell Willian Notes Date Note Type Note Provider Name and Address Organization Details Recorded Time 08/05/2024 text/html Patient reports he is very stiff today and can barely move his leg. Emy Lora, SHOE LINING FITTER [address], [place], [address], [facility] 08/05/2024 14:23:43 08/07/2024 text/html Patient reports falling while at the dentist yesterday. States having a small abrasion over the proximal tibia, but is able to weight bear normally. Reports that the knee is sore, but wants to try to perform PT exercises. David Weiss, DPT [address], [place], [address], [facility] 08/07/2024 15:06:54 08/13/2024 text/html Patient reports he is having a bad day. David Weiss, DPT [address], [place], [address], [facility] 08/14/2024 09:10:26 08/15/2024 text/html Patient continues to report he is not doing well. He has increased pain in his knee that limits his ADLs. Emy Lora, SHOE LINING FITTER [address], [place], [address], [facility] 08/15/2024 14:29:11 08/19/2024 text/html Patient reports that the knee is improving and less stiff feeling today. David Weiss, [facility]ICKT [address] [facility] [address], [place], [address], [facility] 08/19/2024 15:28:49
--- OUTSIDE RECORDS SUMMARY | 2024-12-30 16:30 | XMS_ITS | Encounter Summary ---
Author Organization [employer] Address [address] [facility] 7t [place] [address] Care Team Providers Care Plumbing Service Technician Name Role Phone Morena Forte Primary Care Provider [phone] Jeremiah Humphrey Unavailable Unavailable Raj Galvin MD Unavailable [phone] Unavailable Reason for Visit * Reason Onset Date Comments PT1 02/26/2023 Encounter Details Date Type Department Care Team (Late st Contact Info) Description 02/26/2023 Telephone [facility] [address] [place] [address] Morena Forte FNP [address] [place], [place] [phone] PT1 Social History Tobacco Use Types Packs/Day [...] encounter Miscellaneous Notes * Telephone Encounter - iY Kingston - 03/20/2023 11:02 AM EDT Patient will recieve approval / denial letter via mail. PT-1 Request [id number] Pending - [facility] [address] [facility] [address] PT-1 Request [id number] Pending - [facility] [address] [facility] [address] PT-1 Request [id number] Pending - [facility] [address] [facility] [address] PT-1 Request [id number] Pending - [facility] General Surgeons [address] [place] [address] [place] [address] * Telephone Encounter - Yi Kingston - 03/20/2023 10:05 AM EDT Patient will recieve approval / denial letter via mail. PT-1 Request [id number] Pending - [facility] [address] [facility] [address] PT-1 Request [id number] Pending - [facility] [address] [facility] [address] PT-1 Request [id number] Pending - [facility] [address] [facility] [address] * Telephone Encounter - Radha Turk - 02/26/2023 8:40 AM EDT Tc from pt requesting to renew PT1 forms that On February: PT1 Name of facility: [facility] Specialty: ALL FUTURE APPT's Location: [address] [place] [address] Date: n/a Time: n/a fax: n/a Phone: n/a wheelchair: n/a Routeman: n/a PT1 Name of facility: [facility] Specialty: ALL FUTURE APPT's Location: [address] [place] [address] Date: n/a Time: n/a fax: n/a Phone: n/a wheelchair: n/a Routeman: n/a PT1 Name of facility: [facility] Specialty: ALL FUTURE APPT's Location: [address] [facility] [address], [place] [address] Date: n/a Time: n/a fax: n/a Phone: n/a wheelchair: n/a Routeman: n/a PT1 Name of facility: [facility] General Surgeons Specialty: ALL FUTURE APPT's Location: [address] [place], [place] [address] [address] Date: n/a Time: n/a fax: n/a Phone: n/a wheelchair: n/a Routeman: n/a FOR ALL FUTURE APPT's!! Please contact pt at [phone] documented in this encounter Plan of Treatment Upcoming Encounters Date Type Department Care Team (Late st Contact Info) Description 01/09/2025 10:00 AM EDT Office Visit [facility] [address] [place] [address] Morena Forte FNP [address] [place] [address] documented as of this encounter Visit Diagnoses Not on filedocumented in this encounter Care Teams Plumbing Service Technician Relationship Specialty Start Date End Date Morena Forte FNP [address] [place] [address] PCP - General Family Medicine 09/27/22 Jeremiah Humphrey Community Health Worker 04/18/24 Raj Galvin MD 100 [facility] [address] [place] [address] Nephrology 08/25/24 Ely Mesa [address] [place] [address] Thoracic Surgery 08/25/24 documented as of this encounter
--- OUTSIDE RECORDS SUMMARY | 2024-12-30 16:30 | XMS_ITS | Encounter Summary ---
Author Organization [employer] Address [address] [facility] 7t [place] [address] Care Team Providers Care Saloon Keeper Name Role Phone Morena Forte Primary Care Provider [phone] Jeremiah Humphrey Unavailable Unavailable Raj Galvin MD Unavailable [phone] Unavailable Reason for Visit * Reason Comments Med Refill Encounter Details Date Type Department Care Team (Late st Contact Info) Description 05/13/2024 Refill [facility] MEDICINE [address] [place] [address] Morena Forte FNP [address] [place], [place] [phone] Social History Tobacco Use Types Packs/Day Years [...] 01/09/2025 10:00 AM EDT Office Visit [facility] [address] [place] [address] Morena Forte FNP [address] [place] [address] documented as of this encounter Goals Goal [...] documented as of this encounter Care Teams Saloon Keeper Relationship Specialty Start Date End Date Morena Forte FNP [address] [place] [address] PCP - General Family Medicine 09/27/22 Jeremiah Humphrey Community Health Worker 04/18/24 Raj Galvin MD 100 [facility] 200 [place] [address] Nephrology 08/25/24 Ely Mesa [address] [place] [address] Thoracic Surgery 08/25/24 documented as of this encounter
--- OUTSIDE RECORDS SUMMARY | 2024-12-30 16:30 | XMS_ITS | Encounter Summary ---
Author Organization [employer] Address [address] [facility] 7t [place] [address] Care Team Providers Care Senior Laboratory Technician Name Role Phone Morena Forte Primary Care Provider [phone] Jeremiah Humphrey Unavailable Unavailable Raj Galvin MD Unavailable [phone] Unavailable Reason for Visit * Reason Comments Med Refill Encounter Details Date Type Department Care Team ([facility] st Contact Info) Description 04/22/2024 Refill [facility] MED [facility] PEDS [address] [place], [place] [phone] Morena Forte FNP [address] [place], [place] [phone] Social History Tobacco Use Types Packs/Day Years [...] to the pharmacy. CM reached out to [facility], spoke with Dulce who states pt [...] provided on [facility] Urgent Care located in [facility] of [facility]. Patient provided with after-hours line for [facility], , which offer nighttime triage service and option to transfer to conveyor monitor provider if needed. Patient verbalizes understanding, and able to repeat back to investment underwriter. A follow up call will be placed within 10 days, patient agrees with plan. documented in this encounter Plan of Treatment Upcoming Encounters Date Type Department Care Team ([facility] Contact Info) Description 01/09/2025 10:00 AM EDT Office Visit [facility] [address] [place] [address] Morena Forte FNP [address] [place], [place] [phone] documented as of this encounter Goals Goal [...] documented as of this encounter Care Teams Senior Laboratory Technician Relationship Specialty Start Date End Date Morena Forte FNP [address] [place] [address] PCP - General Family Medicine 09/27/22 Jeremiah Humphrey Community Health Worker 04/18/24 Raj Galvin MD [address] [address] Nephrology 08/25/24 Ely Mesa [address] [place] [address] Thoracic Surgery 08/25/24 documented as of this encounter
--- OUTSIDE RECORDS SUMMARY | 2024-12-30 16:30 | XMS_ITS | Encounter Summary ---
Author Organization [employer] Address [address] [facility] 7t [place] [address] Care Team Providers Care Redevelopment Specialist Name Role Phone Morena Forte Primary Care Provider [phone] Jeremiah Humphrey Unavailable Unavailable Raj Galvin MD Unavailable [phone] Unavailable Reason for Visit * Reason Onset Date Comments PT1 03/24/2024 Encounter Details Date Type Department Care Team (Late st Contact Info) Description 03/24/2024 Telephone [facility] MEDICINE [address] [place] [address] Morena Forte FNP [address] [place], [place] [phone] PT1 Social History Tobacco Use Types Packs/Day [...] name: Hemant Gary DPM Podiatry Facility Address: [address] [place] [address] Escort needed: Y/N: No Do you have a wheelchair: Y/N: No Cane If yes- Manual or electric: n/a Visits: n/a documented in this encounter Plan of Treatment Upcoming Encounters Date Type Department Care Team ([facility] st Contact Info) Description 01/09/2025 10:00 AM EDT Office Visit [facility] MED & PEDS [address] [place] [address] Morena Forte FNP [address] [place] [address] documented as of this encounter Goals Goal [...] documented as of this encounter Care Teams Redevelopment Specialist Relationship Specialty Start Date End Date Morena Forte FNP [address] [place] [address] PCP - General Family Medicine 09/27/22 Jeremiah Humphrey Community Health Worker 04/18/24 Raj Galvin MD 100 [facility] 200 [place] [address] Nephrology 08/25/24 Ely Mesa [address] [place] [address] Thoracic Surgery 08/25/24 documented as of this encounter
--- OUTSIDE RECORDS SUMMARY | 2024-12-30 16:30 | XMS_ITS | Encounter Summary ---
Author Organization [employer] Address [address] [facility] 7[address] [place] [address] Care Team Providers Care Bi Specialist Name Role Phone Morena Forte Primary Care Provider [phone] Jeremiah Humphrey Unavailable Unavailable Raj Galvin MD Unavailable [phone] E[address] [place]a Unavailable Reason for Visit * Reason Onset Date Comments PT1 11/26/2024 Encounter Details Date Type Department Care Team (Late st Contact Info) Description 11/26/2024 Telephone [facility] [address] [place] [address] Morena Forte FNP [address] [place], [place] [phone] PT1 Social History Tobacco Use Types Packs/Day [...] Y/N: Yes Provider name or facility name: [address] [address]. Escort needed: Y/N: No Do you have a wheelchair: Y/N: No (cane) If yes- Manual or electric: N/A Visits: (2x monthly) documented in this encounter Plan of Treatment Upcoming Encounters Date Type Department Care Team (Late st Contact Info) Description 01/09/2025 10:00 AM EDT Office Visit [facility] [address] [place] [address] Morena Forte FNP [address] [place] [address] documented as of this encounter Goals Goal [...] documented as of this encounter Care Teams Bi Specialist Relationship Specialty Start Date End Date Morena Forte FNP [address] [place] [phone] PCP - General Family Medicine 09/27/22 Jeremiah Humphrey Community Health Worker 04/18/24 Raj Galvin MD [address] [phone] Nephrology 08/25/24 Ely Mesa [address] [place] [id number] Thoracic Surgery 08/25/24 documented as of this encounter
--- OUTSIDE RECORDS SUMMARY | 2024-12-30 16:30 | XMS_ITS | Encounter Summary ---
Author Organization [employer] Address [address] [facility] 7t [place] [address] Care Team Providers Care Soaking Pits Supervisor Name Role Phone Morena Forte Primary Care Provider [phone] Jeremiah Humphrey Unavailable Unavailable Raj Galvin MD Unavailable [phone] [place] Unavailable Reason for Visit * Reason Comments Med Refill Encounter Details Date Type Department Care Team ([facility] st Contact Info) Description 12/10/2024 Refill [facility] [address] [place], [place] [phone] Morena Forte FNP [address] [place], [place] [phone] Social History Tobacco Use Types Packs/Day Years [...] Description 01/09/2025 10:00 AM EDT Office Visit [facility] [address] [place] [address] Morena Forte, TERI [address] [place] [address] documented as of this encounter Goals Goal [...] documented as of this encounter Care Teams Soaking Pits Supervisor Relationship Specialty Start Date End Date Morena Forte FNP [address] [place] [address] PCP - General Family Medicine 09/27/22 Jeremiah Humphrey Community Health Worker 04/18/24 Raj Galvin MD [address] [phone] Nephrology 08/25/24 Ely Mesa [address] [place] [id number] Thoracic Surgery 08/25/24 documented as of this encounter
--- OUTSIDE RECORDS SUMMARY | 2024-12-30 16:30 | XMS_ITS | Encounter Summary ---
Author Organization [employer] Address [address] [facility] 7[address] [place] [address] Care Team Providers Care Removable Prosthodontist Name Role Phone Morena Forte Primary Care Provider [phone] Jeremiah Humphrey Unavailable Unavailable Raj Galvin MD Unavailable [phone] E[address] [place] Unavailable Reason for Visit * Reason Comments Med Refill Encounter Details Date Type Department Care Team ([facility] st Contact Info) Description 04/03/2024 Refill [facility] [address] [place] [address] Morena Forte FNP [address] [place], [place] [phone] Severe obesity (CMS/HCC) Social History Tobacco Use [...] Description 01/09/2025 10:00 AM EDT Office Visit [facility] [address] [place] [address] Morena Forte FNP [address] [place] [address] documented as of this encounter Goals Goal [...] documented as of this encounter Care Teams Removable Prosthodontist Relationship Specialty Start Date End Date Morena Forte FNP [address] [place] [address] PCP - General Family Medicine 09/27/22 Jeremiah Humphrey Community Health Worker 04/18/24 Raj Galvin MD [address] [place] [address] Nephrology 08/25/24 Ely Mesa [address] [place] [phone] Thoracic Surgery 08/25/24 documented as of this encounter
== END 2024-12-30 14:14 | disposition home or self-care (01) ==
LOC: HO.HCS 13:35
PROVIDERS: PCP Registered Nurse; Visit Provider Internal Medicine
DX: Q24.5 Malformation of coronary vessels (principal); I25.10 Atherosclerotic heart disease of native coronary artery without angina pectoris; E66.01 Morbid (severe) obesity due to excess calories; F17.200 Nicotine dependence, unspecified, uncomplicated
CPT/HCPCS: 93010; 99214

== ENCOUNTER → 2024-12-30 13:34 | Outpatient (BNVA) | payer MEDICAID, SELFPAY | PROVIDERS: PCP Registered Nurse; Visit Provider Internal Medicine | DX: Q24.5 Malformation of coronary vessels (principal); I25.10 Atherosclerotic heart disease of native coronary artery without angina pectoris; I10 Essential (primary) hypertension; E66.01 Morbid (severe) obesity due to excess calories; F17.210 Nicotine dependence, cigarettes, uncomplicated; Z68.41 Body mass index [BMI] 40.0-44.9, adult | CPT/HCPCS: 93005; 99212 ==

== ENCOUNTER 2025-01-28 11:36 | Outpatient (REF) | payer MEDICAID, SELFPAY ==
--- NOTE | ~2025-01-28 | CT_ITS ---
EXAMINATION: CT CHEST WITH IV CONTRAST INDICATION: Surveillance, lung cancer COMPARISON: Comparison is made with the prior examination dated 07/31/2023. TECHNIQUE: Helical CT scan of the chest was performed following administration of intravenous contrast. Coronal and sagittal reformatted images were generated and reviewed. This CT exam was performed with one or more of the following dose reduction techniques: automated exposure control, adjustment of the mA and/or kV according to patient size, use of iterative reconstruction technique. DLP: 220 mGy-cm CHEST: THYROID: The thyroid is unremarkable. LUNGS: Postsurgical changes are again noted in the left upper lung with a suture line. The appearance is unchanged from the prior study. There is a new 4 mm nodule in the left lower lobe (series 4, image 86). The right lung is clear. MEDIASTINUM: There is no mediastinal lymphadenopathy. GINA: There is no hilar lymphadenopathy. CARDIOVASCULATURE: The heart is normal in size. There is no pericardial effusion. The thoracic aorta is normal in caliber. DEGREE OF CORONARY CALCIFICATION: mild PLEURA: There is no pleural effusion. No pneumothorax. MAIN AIRWAYS: The mainstem bronchi and proximal branches are patent. AXILLA: There is no axillary lymphadenopathy. BONES AND SOFT TISSUES: There is degenerative disc disease of the spine. UPPER ABDOMEN: The visualized portions of the liver, spleen, and adrenals are unremarkable. There is cholelithiasis. CT/CT chest w IV con IMPRESSION: Stable postsurgical changes on the left. New 4 mm left lower lobe pulmonary nodule. Follow-up is recommended with chest CT in 6 months. Electronically signed by: Hermann Jimenez MD 01/28/2025 01:01 PM EDT
[2025-01-28] MEDS: iohexoL 350 MG/ML 100 ML INFUS..BTL IV (12:40)
--- OUTSIDE RECORDS SUMMARY | 2025-01-28 13:44 | XMS_ITS | Clinical Summary ---
Author Organization [employer] Address [address] [facility] [facility] [address] [place] [address] Care Team Providers Care Clean Up Worker Name Role Phone Morena Forte Primary Care Provider [phone] Jeremiah Humphrey Unavailable Unavailable Raj Galvin MD Unavailable [phone] Mes[address] Unavailable Allergies Active Allergy Reactions Criticality Noted Date Comments Penicillin G 12/26/2019 Medications albuterol 108 (90 Base) MCG/ACT inhaler Inhale 2 puffs every 4 (four) hours. 2 Active methadone (Dolophine) 10 MG/ML solution Take 90 mg by mouth 1 (one) time each day. 1 Active naloxone (Narcan) 4 mg/0.1 mL nasal spray spray 0.1 milliliter by intranasal route in 1 nostril may repeat dose every 2-3 minutes as needed alternating nostrils with each dose 0 Active acetaminophen (Tylenol) 500 MG tablet Take 2 tablets by mouth Every 4-6 hours as needed. NTE 8 tabs/24 hours 2 Active buPROPion XL (Wellbutrin XL) 300 MG 24 hr tablet Take 1 tablet by mouth in the morning. Active rosuvastatin (Crestor) 10 MG tablet Take 10 mg by mouth in the morning. Active DULoxetine (Cymbalta) [address] capsule TAKE 1 CAPSULE BY MOUTH ONCE DAILY 3 Active Fluticasone Furoate-Vilant alyse (BREO ELLIPTA IN) Inhale. Through Pulm Active lidocaine (Lidoderm) 5 % patchIndicatio ns:Pain APPLY A PATCH TO SKIN DAILY IN THE MORNING *REMOVE AND DISCARD WITHIN TWELVE HOURS OR DIRECTED 30 patch 3 4 Active gabapentin (Neurontin) 400 MG capsule TAKE 1 CAPSULE BY MOUTH TWICE A DAY 180 capsule 1 4 Active celecoxib (CeleBREX) 200 MG capsule Take 1 capsule by mouth Once per day. 4 Active omeprazole (PriLOSEC) [address] capsule Take 1 capsule by mouth before breakfast. Do not crush or chew. Active traZODone (Desyrel) 100 MG tablet Take by mouth if needed at bedtime for sleep. 1 to 2 tablets Active Umeclidinium [place] (Incruse Ellipta) 62.5 MCG/ACT aerosol powder Inhale Once per day. 1 inhalation Active linaCLOtide (Linzess) 290 MCG capsule Take 1 capsule by mouth before breakfast. Do not crush or chew. Active furosemide (Lasix) 20 MG tabletIndicati ons:Lower extremity edema TAKE 1 TABLET BY MOUTH EVERY MORNING , MAY USE 2ND DOSE NEEDED FOR SWELLING 90 tablet 1 5 Active Multiple Vitamin (Daily-Anu) tablet TAKE 1 TABLET BY MOUTH DAILY IN THE MORNING WITH FOOD 90 tablet 3 5 Active Tirzepatide-We ight Management (Zepbound) 5 MG/0.5ML solution auto-injectorI ndications:Sev ere obesity (CMS/HCC) Inject 0.5 mL (5 mg) under the skin 1 (one) time per week. 2 mL 1 5 02/09/20 25 Active Tirzepatide-We ight Management (Zepbound) 2.5 MG/0.5ML solution auto-injectorI ndications:Obe sity Inject 0.5 mL (2.5 mg) under the skin 1 (one) time per week. 2 mL 2 5 01/10/20 25 Discontin ued(Dose adjustmen t) Active Problems Problem Noted Date Diagnosed Date Pulmonary nodule, left 08/25/2024 Overview (08/25/2024): - Followed by Dr. Mesa - CT Chest 08/08/24: stable 4 mm nodule LLL Microscopic hematuria 03/11/2024 Overview (03/11/2024): Following with [facility] Urology - Dr. Guerrero 02/21/24: US renal bilat unremarkable Primary osteoarthritis of left knee 12/28/2023 Assessment & Plan (08/31/2024 8:51 PM EST): S/p left knee TKA with Dr. Eagle (SULAIMAN) at [facility] in May 2024 Previously doing well with [...] knee TKA with Dr. Eagle (SULAIMAN) at [facility] in May 2024 Recovery going well, continues [...] minute. Pending plan and further information from [facility] Healthcare maintenance 11/11/2023 Overview (03/10/2024): -Colonoscopy: followed by [facility] GI - booked for upper endoscopy and colonoscopy per consult note Jul 2023 -Lung CA: (+) hx lung CA - CT chest January 2024 Lung RADS 1, due 1 year Persistent proteinuria 11/11/2023 Overview (08/25/2024): Following with [facility] Nephrology - Dr. Raj Athreya - for proteinuria and microhematuria Imaging studies and urine cytology WNL Suspect proteinuria 2/2 obesity and lung CA Assessment & Plan (03/10/2024 7:25 AM EDT): Followed by [facility] Urology for proteinuria and hematuira. 02/21/24: US [...] Referrals: PS&S sent 09/06/23 (PT1 requested 11/11/23) [facility] Pain Management sent 03/11/24 (w/ PT1) Assessment [...] overlap syndrome 06/06/2023 Overview (07/20/2024): Following with [facility] Pulm - Dr. Cayden Yancey Breo and Melina Cont CT scans every 6 months for at least 5 years Assessment & Plan (07/20/2024 8:19 PM EDT): Last available consult note: April 2024. Plan to order overnight oximetry to assess oxygen need at night. 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 Call office w/ any symptoms. Previous history: Wegovy initiated February 2024 Plan to continue with lifestyle interventions such as well balanced nutrition, diet rich in fruits and vegetables, and routine physical activity as able. Assessment & Plan (08/25/2024 5:29 PM EST): [...] time, interested in having meds sent to [place] [facility] Assessment & Plan (05/20/2023 12:19 PM EDT): Following with Dr. Kendrick, current regimen: ?? Duloxetine 60 mg qam ?? Trazodone 50 mg at bedtime ?? Bupropion XL 300 mg qam Declines interest in Med Box at this time, interested in having meds sent to [place] [facility] Assessment & Plan (04/11/2023 2:16 PM EDT): ?? Following with Dr. Kendrick ?? Message sent to her office to discuss returning to previous med regimen as had worked better for pt. ?? Requested refills sent to [facility] pharmacy as pt planning to transfer prescriptions here to start Med Box. Malignant neoplasm of upper lobe of left lung Overview (04/11/2023): ?? 1.1 x 1.2cm lesion in PAXTON noted on LDCT 10/27/22 (hx of cigarette smoking) ?? S/p PAXTON segmentectomy December 2022 at [facility] - resected nodular density revealed invasive adenocarcinoma, tumor size 2 x 1.5 x 1.1 cm ?? Currently s/p surgery, initiated chemotherapy 04/09/23 ?? Followed by [facility] Heme/Onc: Dr. Ulloa, and [facility] Pulm - Dr. Rodarte Assessment & Plan (04/11/2023 2:13 PM EDT): ?? DME request for Ensure ([place] & Vanilla flavor BID) on 04/11/23 Assessment & Plan (04/09/2023 7:38 PM EDT): ?? 1.1 x 1.2cm lesion in PAXTON noted on LDCT 10/27/22 (hx of cigarette smoking) ?? S/p PAXTON segmentectomy December 2022 at [facility] - resected nodular density revealed invasive adenocarcinoma, tumor size 2 x 1.5 x 1.1 cm ?? Currently s/p surgery, with the plan to start chemotherapy ?? Followed by [facility] Heme/Onc: Dr. Ulloa, and [facility] Pulm - Dr. Rodarte Assessment & Plan (03/19/2023 6:18 PM EDT): ?? 1.1 x 1.2cm lesion in PAXTON noted on LDCT 10/27/22 (hx of cigarette smoking) ?? S/p PAXTON segmentectomy December 2022 at [facility] - resected nodular density revealed invasive adenocarcinoma, tumor size 2 x 1.5 x 1.1 cm ?? Currently s/p surgery, with the plan to start chemotherapy ?? Followed by [facility] Heme/Onc: Dr. Ulloa, and [facility] Pulm - Dr. Rodarte Pulmonary emboli 03/19/2023 Assessment & Plan (03/11/2024 11:21 AM EDT): Identified during ED visit 02/22/23 Bilateral multiple pulmonary emboli (primarily left) Eliquis managed by [facility] Heme/Onc - discontinued December 2023 Assessment & Plan (05/14/2023 10:09 AM EDT): ?? Identified during ED visit 02/22/23 ?? Bilateral multiple pulmonary emboli (primarily left) ?? Discharged on Eliquis, further rx to be managed by [facility] Heme/Onc (although last prescription sent in through PCP office) Assessment & Plan (04/09/2023 7:48 PM EDT): ?? Identified during ED visit 02/22/23 ?? Bilateral multiple pulmonary emboli (primarily left) ?? Discharged on Eliquis, further rx to be managed by [facility] Heme/Onc Assessment & Plan (03/19/2023 6:21 PM EDT): ?? Identified during ED visit 02/22/23 ?? Bilateral multiple pulmonary emboli (primarily left) ?? Discharged on Eliquis, further rx to be managed by [facility] Heme/Onc ?? ED precautions reviewed Anomalous origin of right coronary artery 2022 Overview (01/11/2025): Following with [facility] cardiology-Dr. Jaime Consult December 2024: Hx of SOB that led to echo, stress test, and coronary CTA. It revealed anomalous coronary artery. He was referred to the adult congenital heart disease clinic at [facility] but was not recommended any interventions. Prior echo revealed preserved ejection fraction. Plan: Weight loss, smoking cessation, LDL goal less than 70. Assessment & Plan (01/11/2025 6:45 PM EDT): BP elevated in office, encouraged monitoring of home blood pressure readings and to follow-up if continues to be elevated. Also following with nephrology. ED/urgent care precautions Assessment & Plan (12/28/2023 8:59 AM EST): BP elevated in office Initially referred to [facility] Cards, subsequently referred to [facility] [place] con[facility]ential heart disease clinic Referral back to [facility] cardi[facility] placed 03/19/23 due to elevated BP readings Continues with furosemide, may consider addition of second agent if home BP readings elevated as well Referral to Cards re-placed on 12/28/23 ED/urgent care precautions Assessment & Plan (06/10/2023 8:26 AM EDT): ?? BP elevated in office ?? Initially referred to [facility] Cards, subsequently referred to [facility] [place] [facility] disease clinic ?? Referral back to [facility] cardiology placed 03/19/23 due to elevated BP readings ?? Continues with furosemide, may consider addition of second agent if home BP readings elevated as well Assessment & Plan (03/19/2023 6:31 PM EDT): ?? Initially referred to [facility] Cards, subsequently referred to [facility] [place] con[facility]ential heart disease clinic ?? Referral back to [facility] cardiology placed 03/19/23 due to elevated BP readings ?? Continues with furosemide 20mg daily History of lobectomy of lung 02/11/2023 Overview (02/11/2023): -Left upper lobectomy at [facility] December 2022 Tobacco use 12/11/2022 Overview (03/11/2024): -Onset: 13 y/o -Max 1ppd (approx 40 pack year hx) -Hx lung CA 2022 -02/12/24: CT chest w/o contrast ordered by Dr. Mesa. Lung RADS 1 - no suspicious pulm nodule. Recommend LDCT in 12 months. Assessment & Plan (01/11/2025 6:48 PM EDT): -Continues with smoking cessation efforts, currently approx 8 cigg/day -Encouraged smoking cessation resources -Pt goal to quit cold turkey Assessment & Plan (03/10/2024 7:24 AM EDT): -Continues with smoking cessation efforts, currently approx 10 cigg/day -Encouraged smoking cessation resources such as pharmacomtherapy, [facility] smoking cessation group, and [facility] pharmacy smoking cessation clinic -Interested in NRT patches as monotherapy, sent to pharmacy Assessment & Plan (11/11/2023 12:57 PM EST): -Continues with smoking cessation efforts, currently approx 10 cigg/day -Encouraged smoking cessation resources such as pharmacomtherapy, [facility] smoking cessation group, and [facility] pharmacy smoking cessation clinic -Interested in NRT patches as monotherapy, sent to pharmacy Assessment & Plan (09/06/2023 7:06 PM EST): -Continues with smoking cessation efforts, currently approx 6 cigg/day -Interested in Chantix, sent to pharmacy Assessment & Plan (06/10/2023 8:23 AM EDT): -Continues with smoking cessation efforts, currently approx 8 cigg/day -Interested in Chantix, spoke with [facility] pharmacy and verbal order given for starter pack of varenicline Assessment & Plan (12/11/2022 8:31 AM EST): -Continues with smoking cessation efforts, down to 6-7 cigg/day -Discussed smoking cessation resources available at [facility] such as smoking cessation clinic History of [...] Encounters Date Type Department Care Team Description 01/26/2025 Orders Only [facility] [address] [place] [address] ProviderKelvin MD 01/19/2025 Telephone [facility] [address] [place] [address] Morena Forte FNP 01/16/2025 Telephone [facility] [address] [place] [address] Morena Forte FNP Prior Authorization 01/14/2025 Telephone [facility] [address] [place] [address] Morena Forte FNP Durable Medical Equipment 01/14/2025 Population Health Risk Score [facility] () Department [address] [place] [phone] Provider, Population Health Generic 01/09/2025 10:00 AM EDT Office Visit [facility] [address] [place] [address] Morena Forte FNP Anomalous origin of right coronary artery (Primary Dx); Severe obesity (CMS/HCC); Tobacco use; Cellulitis of left lower extremity 01/09/2025 Travel 01/08/2025 Telephone [facility] [address] [place] [address] Morena Forte FNP Chart Prep 01/02/2025 Patient Outreach [facility] [address] [place] [address] Morena Forte FNP Pre-visit Planning (SDOH was already completed) 01/01/2025 Patient Outreach [facility] [address] [place] [address] Morena Forte FNP Care Coordination (CHW outreach for SDOH PT-1 - LVM ) 01/01/2025 Telephone [facility] [address] [place] [address] Morena Forte FNP PT1 01/01/2025 Telephone [facility] [address] [place] [address] Morena Forte FNP Prior Authorization 01/01/2025 Refill [facility] [address] [place] [phone] Morena Forte FNP Severe obesity ([facility]/HCC) 12/29/2024 Refill [facility] [address] [place] [phone] Morena Forte FNP Severe obesity ([facility]/HCC) 12/16/2024 Telephone [facility] [address] [place] [phone] Morena Forte FNP 12/10/2024 Refill [facility] [address] [place] [address] Morena Forte FNP 11/26/2024 Patient Outreach [facility] [address] [place] [address] Morena Forte FNP Care Coordination (CHW outreach for SDOH PT-1 and food needs-referral completed /) 11/26/2024 Telephone [facility] [address] [place] [address] Morena Forte FNP PT1 11/25/2024 Refill [facility] [address] [place] [address] Morena Forte FNP 11/19/2024 Patient Outreach [facility] [address] [place] [address] Morena Forte FNP Care Coordination (Outreach ) 11/14/2024 10:00 AM EST Office Visit [facility] [address] [place] [address] Morena Forte FNP Cellulitis of left lower extremity (Primary Dx) 11/14/2024 Patient Outreach [facility] [address] [place] [address] Morena Forte FNP Care Coordination (Outreach) 11/14/2024 Travel 11/14/2024 Patient Outreach [address] [address] Morena Forte FNP Transition Of Care (Tcm) 11/13/2024 Telephone [facility] [address] [place] [address] Olga Shaffer MA Chart Prep 11/13/[address] [address] Morena Forte FNP Call Back Request 11/13/2024 Refill [facility] [address] [place] [address] Morena Forte FNP Lower extremity edema 11/12/2024 Patient Outreach [facility] [address] [place] [address] Morena Forte FNP Care Coordination (Outreach) 11/12/2024 Patient Outreach [facility] [address] [place] [address] Morena Forte FNP Care Coordination (Outreach) 11/11/2024 Travel 11/11/[address] [address] Morena Forte FNP Nurse Triage 11/07/2024 2:45 PM EST Office Visit [facility] [address] [place] [address] Morena Forte FNP Cellulitis of left lower extremity (Primary Dx); Blister 11/07/2024 Orders Only [facility] [address] [place] [address] Morena Forte FNP 11/07/2024 Travel from Last 3 Months Immunizations Name Administration [...] Sign Reading Time Taken Comments Blood Pressure 148/70 01/09/2025 9:52 AM EDT Pulse 69 01/09/2025 9:52 AM EDT Temperature 37 ??C (98.6 ??F) 01/09/2025 9:52 AM EDT Respiratory Rate 24 01/09/2025 9:52 AM EDT Oxygen Saturation 98% 01/09/2025 9:52 AM EDT Inhaled Oxygen Concentration - - Weight 127 kg (281 lb) 01/09/2025 9:52 AM EDT Height 165.1 cm (5' 5 ) 01/09/2025 9:52 AM EDT Body Mass Index 46.76 01/09/2025 9:52 AM EDT Plan of Treatment Health Maintenance Due Date Last Done Comments [...] Refused) Diabetes: Hemoglobin A1C 11/07/2025 025, 12/18/2019 SDOH Screening 11/19/2025 11/19/2024 Tobacco Screening 01/09/2026 01/09/2025 Lipid Panel 11/07/2029 11/07/2024, 06/08/2023 DTaP/Tdap/Td Vaccines [...] Author Blood Pressure < 140/90 Blood Pressure 148/70( 025 9:52 AM EDT) No Eve Oliveira PharmD Procedures Procedure Name Priority Date/Time Associated Diagnosis Comments CT CHEST W CONTRAST Routine 01/28/2025 1 1:[address] CHEST WO CONTRAST Routine 01/23/2025 12:33 PM EDT COMPREHENSIVE METABOLIC PANEL Routine 11/07/2024 4:09 PM [...] Recently Relevant to Health Maintenance Results * CT Chest w/ Contrast (01/28/2025 11:49 AM EDT) Anatomical Region Laterality Modality Body, Chest Computed Tomogra phy 01/28/2025 11:4 9 AM EDT Narrative 01/28/2025 1:03 PM EDT ? [facility] ?[address] ?[place] [address] ? CT Scan Report ? Signed ? Patient: Dru Dorsey A ?MR#: [id number] ?? 1 ? : 1965 ?Acct:[id number] ? Age/Sex: 59 / M ?ADM Date: 01/28/25 ? Loc: HO.CT ? Attending Dr: Linda Ulloa MD ? Ordering Physician: Linda Ulloa MD ?? Date of Service: 01/28/25 ?? Procedure(s): CT chest w IV con ?? Accession Number(s): [id number] ? cc: Linda Ulloa MD; Morena Forte E BUSINESS MANAGER ? Report Number: ?? [id number]: Total DLP = ??220.00 mGy-cm ?? EXAMINATION: CT CHEST WITH IV CONTRAST ? INDICATION: Surveillance, lung cancer ? COMPARISON: Comparison is made with the prior examination dated ?? 07/31/2023. ? TECHNIQUE: Helical CT scan of the chest was performed following ?? administration of intravenous contrast. ??Coronal and sagittal ?? reformatted images were generated and reviewed. ? This CT exam was performed with one or more of the following dose ?? reduction techniques: automated exposure control, adjustment of the mA ?? and/or kV according to patient size, use of iterative reconstruction ?? technique. ? DLP: 220 mGy-cm ? CHEST: ? THYROID: The thyroid is unremarkable. ? LUNGS: Postsurgical changes are again noted in the left upper lung with ?? a suture line. The appearance is unchanged from the prior study. There ?? is a new 4 mm nodule in the left lower lobe (series 4, image 86). The ?? right lung is clear. ? MEDIASTINUM: There is no mediastinal lymphadenopathy. ? GINA: There is no hilar lymphadenopathy. ? CARDIOVASCULATURE: The heart is normal in size. ??There is no ?? pericardial effusion. ??The thoracic aorta is normal in caliber. ? DEGREE OF CORONARY CALCIFICATION: ??mild ? PLEURA: ??There is no pleural effusion. ??No pneumothorax. ? MAIN AIRWAYS: The mainstem bronchi and proximal branches are patent. ? AXILLA: There is no axillary lymphadenopathy. ? BONES AND SOFT TISSUES: There is degenerative disc disease of the spine. ? UPPER ABDOMEN: The visualized portions of the liver, spleen, and ?? adrenals are unremarkable. There is cholelithiasis. ? CT/CT chest w IV con ?? IMPRESSION: ?? Stable postsurgical changes on the left. New 4 mm left lower lobe ?? pulmonary nodule. Follow-up is recommended with chest CT in 6 months. ? Electronically signed by: ??Hermann Jimenez MD ??01/28/2025 01:01 PM EDT ? Dictated By: ?Hermann Jimenez MD ? Signed By: ?<Electronically signed by Hermann Jimenez MD in OV> ?01/28/25 1301 ? DD/ 1149 ? TD/TT: 01/28/25 1200 ? Oval Or Circular Glass Cutter: ? Procedure Note Yanely Jimenez - 01/28/[address] [address] [address] Scan Report Signed Patient: Dru Dorsey [facility]#: [id number] 1 : 1965Acct:[id number] Age/Sex: 59 / MADM Date: 01/28/25 Loc: HO.CT Attending Dr: Linda Ulloa MD Ordering Physician: Linda Ulloa MD Date of Service: 01/28/25 Procedure(s): CT chest w IV con Accession Number(s): [id number] cc: Linda Ulloa MD; Morena Forte [facility] Report Number: [id number]: Total DLP = 220.00 mGy-cm EXAMINATION: CT CHEST WITH IV CONTRAST INDICATION: Surveillance, lung cancer COMPARISON: Comparison is made with the prior examination dated 07/31/2023. TECHNIQUE: Helical CT scan of the chest was performed following administration of intravenous contrast. Coronal and sagittal reformatted images were generated and reviewed. This CT exam was performed with one or more of the following dose reduction techniques: automated exposure control, adjustment of the mA and/or kV according to patient size, use of iterative reconstruction technique. DLP: 220 mGy-cm CHEST: THYROID: The thyroid is unremarkable. LUNGS: Postsurgical changes are again noted in the left upper lung with a suture line. The appearance is unchanged from the prior study. There is a new 4 mm nodule in the left lower lobe (series 4, image 86). The right lung is clear. MEDIASTINUM: There is no mediastinal lymphadenopathy. GINA: There is no hilar lymphadenopathy. CARDIOVASCULATURE: The heart is normal in size. There is no pericardial effusion. The thoracic aorta is normal in caliber. DEGREE OF CORONARY CALCIFICATION: mild PLEURA: There is no pleural effusion. No pneumothorax. MAIN AIRWAYS: The mainstem bronchi and proximal branches are patent. AXILLA: There is no axillary lymphadenopathy. BONES AND SOFT TISSUES: There is degenerative disc disease of the spine. UPPER ABDOMEN: The visualized portions of the liver, spleen, and adrenals are unremarkable. There is cholelithiasis. CT/CT chest w IV con IMPRESSION: Stable postsurgical changes on the left. New 4 mm left lower lobe pulmonary nodule. Follow-up is recommended with chest CT in 6 months. Electronically signed by: Hermann Jimenez MD 01/28/2025 01:01 PM EDT Dictated By: Hermann Jimenez MD Signed By: <Electronically signed by Hermann Jimenez MD in OV> 01/28/25 1301 DD/ 1149 TD/TT: 01/28/25 1200 Oval Or Circular Glass Cutter: [facility] External Provider IMG CT PROCEDURES Final Result * CT Chest w/o Contrast (01/23/2025 12:33 PM EDT) Anatomical Region Laterality Modality Body, Chest Computed Tomogra phy Historical Provider IMG CT PROCEDURES Final R esult * TSH W/Reflex to FT4 (11/07/2024 4:09 PM EST) TSH reflex Free T4 1.52 0.32 - 4.0 uIU/mL [facility] Blood Venous blood specimen / Unknown 11/07/2024 4:09 PM EST 11/07/2024 5:50 PM EST Morena Forte E BUSINESS MANAGER LAB BLOOD ORDERABLES Final Res ult Performing Organization Address [facility] Co de Phone Number [facility] [address] [place] [phone] * Hemoglobin A1c (11/07/2024 4:09 PM EST) Hemoglobin A1c 5.7 <6.0 % [facility] Comment:Hemoglobin A1C Refer ence Range Adults: 4.8 - 6.0 % Non diabetic: < 6.0 % Goal: < 7.0 %Additional Action Suggested: > 8.0 %Note: Hemoglobin A1c results are invalid for patients with abnormal amounts of HbF. Blood transfusions may impact the HbA1c concentration in the patient sample. Estimated Average Glucose 117 mg/dL [facility] Comment:eAG = Estimated ave rage glucose which is %A1C expressed asaverage glucose, using the formula of the [id number] Glucose study (ADAG), Diabetes Care, Vol.31,#8,May. 2007 Blood Venous blood specimen / Unknown 11/07/2024 4:09 PM EST 11/07/2024 5:50 PM EST Morena Forte E BUSINESS MANAGER LAB BLOOD ORDERABLES Final Res ult Performing Organization Address [facility] Co de Phone Number [facility] [address] [place] [address] [phone] * Lipid Panel, Standard (11/07/2024 4:09 PM EST) Triglycerides 74 <150 mg/dL [facility] Comment:Desirable Triglyceri de: less than 150 mg/dLBorderline High Triglyceride 150-199 mg/dLHigh Triglyceride: 200-499 mg/dLVery High Triglyceride: greater than or equal to 5OO mg/dL Cholesterol 150 <200 mg/dL [facility] Comment:Desirable Cholestero l: less than 200 mg/dLBorderline High Cholesterol: 200-239 mg/dLHigh Cholesterol: greater than 239 mg/dL LDL Cholesterol Calculated 65 <100 mg/dL [facility] Comment:Desirable LDL: less than 100 mg/dLNear Optimal/Above Optimal LDL: 110- 129 mg/dLBorderline High LDL: 130-159 mg/dLHigh LDL: 160-189 mg/dLVery High LDL: greater than or equal to 190 mg/dL HDL Cholesterol 71 >40 mg/dL [facility] Comment:Desirable HDL: great er than 40 mg/dL Note: This HDL assay may give artificially low results in patients with liver disease. Blood Venous blood specimen / Unknown 11/07/2024 4:09 PM EST 11/07/2024 5:50 PM EST us Morena Forte E BUSINESS MANAGER LAB BLOOD ORDERABLES Final Res ult Performing Organization Address [facility]/ZIP Co de Phone Number [facility] [address] [place] [address] [phone] * (ABNORMAL) Comprehensive Metabolic Panel (11/07/2024 4:09 PM EST) Sodium 140 135 - 145 mmol/L [facility] Potassium 4.6 3.3 - 5.1 mmol/L [facility] Chloride 103 96 - 108 mmol/L [facility] Carbon Dioxide 30(H) 22 - 29 mmol/L [facility] Anion Gap 12 12 - 20 [facility] Urea Nitrogen (BUN) 17(H) 9 - 16 mg/dL [facility] Creatinine, Serum 1.04 0.5 - 1.4 mg/dL [facility] Estimated Glomerular Filt Rate >60 [facility] Comment:Chronic Kidney Disea se: Estimated GFR < 60 mL/min/1.38l1Krvlrv Kidney Disease: Estimated GFR < 15 mL/min/1.73m2 Glucose 89 60 - 115 mg/dL [facility] Calcium 9.6 8.4 - 10.2 mg/dL [facility] Bilirubin, Total 0.3 0.0 - 1.0 mg/dL [facility] Aspartate Amino Transferase 26 5 - 37 U/L [facility] Alanine Aminotransferase 25 0 - 40 U/L [facility] Total Protein 8.1(H) 6.5 - 8.0 g/dL [facility] Albumin Level 4.4 3.5 - 5.0 g/dL [facility] Alkaline Phosphatase 90 39 - 117 U/L [facility] Blood Venous blood specimen / Unknown 11/07/2024 4:09 PM EST 11/07/2024 5:50 PM EST Morena Forte E BUSINESS MANAGER LAB BLOOD ORDERABLES Final Res ult [facility] [address] [place] [phone] * Gram stain (11/07/2024 3:49 PM EST) 11/07/2024 3:49 PM EST 11/07/2024 5:53 PM EST Comment:Calf Left Narrative [facility] - 11/12/2024 7:24 AM EST CELLULITIS OF LEFT LOWER EXTREMITY Gram stain results: No polys 2+ epithelial cells No organisms seen CELLULITIS OF LEFT LOWER EXTREMITY Routine Culture Report - external Routine Culture 1+ Mixed skin maribel Enterococcus faecalis Quant Org ID 1+ Enterococcus faecalis: Ampicillin <=2(S) Enterococcus faecalis: Vancomycin 1(S) Specimen Source: Calf Left us Morena Hannaen [facility] MICROBIOLOGY - GENERAL ORD ERABLES Final Result [facility] [address] [place] [address] [phone] * HIV AB/AG (12/05/2019 1:56 PM [...] detection of this assay. ?? The [employer] Senior Program Manager HIV Ag/Ab Combo assay result and supplemental assay results should be interpreted in conjunction with the patient's clinical presentation, history and other laboratory results. ??If the results are inconsistent with clinical evidence, additional testing is suggested to confirm the result. 12/05/2019 1:56 PM EST Yves Martin MD HISTORICAL/NON ORDERABLE LABS Fi nal Result Performing Organization Address [facility] Co de Phone Number [facility] [address] from Last 3 Months or Most Recently Relevant to Health Maintenance Insurance [facility] C3 Care Teams Clean Up Worker Relationship Specialty Start Date End Date Morena Forte FNP [address] [place] [phone] PCP - General Family Medicine 09/27/22 Jeremiah Humphrey Community Health Worker 04/18/24 Raj Galvin MD 100 [facility] 200 [place] [address] Nephrology 08/25/24 Ely Mesa [address] [place] [phone] Thoracic Surgery 08/25/24
--- OUTSIDE RECORDS SUMMARY | 2025-01-28 13:44 | XMS_ITS | Encounter Summary ---
Author Organization [employer] Address 75 [facility] 7t [place] [address] Care Team Providers Care Prekindergarten Teacher Name Role Phone Morena Forte Primary Care Provider [phone] Jeremiah Humphrey Unavailable Unavailable Raj Galvin MD Unavailable [phone] Ely Mesa Unavailable Reason for Visit * Reason Onset Date Comments pt1 12/19/2022 Encounter Details Date Type Department Care Team (Late st Contact Info) Description 12/19/2022 Telephone [facility] [address] [place] [address] Morena Forte FNP [address] [place], [place] [phone] pt1 Social History Tobacco Use Types Packs/Day [...] being picked up. Please contact pt at [phone] documented in this encounter Plan of Treatment Not on file documented as of this encounter Visit Diagnoses Not on filedocumented in this encounter Care Teams Prekindergarten Teacher Relationship Specialty Start Date End Date Morena Forte FNP [address] [place] [phone] PCP - General Family Medicine 09/27/22 Jeremiah Humphrey Community Health Worker 04/18/24 Raj Galvin MD 100 [facility] 200 [place] [address] Nephrology 08/25/24 Ely Mesa [address] [place] [phone] Thoracic Surgery 08/25/24 documented as of this encounter
--- OUTSIDE RECORDS SUMMARY | 2025-01-28 13:44 | XMS_ITS | Encounter Summary ---
Author Organization [facility] Address 75 [facility] 7t [place] [address] Care Team Providers Care Head Of Science Name Role Phone Morena Forte Primary Care Provider [phone] Jeremiah Humphrey Unavailable Unavailable Raj Galvin MD Unavailable [phone] Ely Mesa Unavailable Encounter Details Date Type Department Care Team (Late st Contact Info) Description 01/18/2023 Telephone [facility] [address] [place] [address] Morena Forte FNP 505 [place], [place] [phone] Social History Tobacco Use Types Packs/Day Years [...] as of this encounter Plan of Treatment Not on file documented as of this encounter Visit Diagnoses Not on filedocumented in this encounter Care Teams Head Of Science Relationship Specialty Start Date End Date Morena Forte FNP [address] [place] [address] PCP - General Family Medicine 09/27/22 Jeremiah Humphrey Community Health Worker 04/18/24 Raj Galvin MD [address] [address] Nephrology 08/25/24 Ely Mesa [address] [place] [phone] Thoracic Surgery 08/25/24 documented as of this encounter
--- OUTSIDE RECORDS SUMMARY | 2025-01-28 13:44 | XMS_ITS | Encounter Summary ---
Author Organization [employer] Address 75 [facility] 7t [place] [address] Care Team Providers Care Inflated Ball Molder Name Role Phone Morena Forte Primary Care Provider [phone] Jeremiah Humphrey Unavailable Unavailable Raj Galvin MD Unavailable [phone] Ely Mesa Unavailable Reason for Visit * Reason Comments Med Refill Encounter Details Date Type Department Care Team ([facility] st Contact Info) Description 04/03/2024 Refill [facility] & [facility]S [address] [place] [address] Morena Forte FNP [address] [place], [place] [phone] Severe obesity (CMS/HCC) Social History Tobacco Use [...] on file documented as of this encounter Goals Goal Patient Goal Type Associated Problems Recent Progress Patient-Stated? Author Blood Pressure < 140/90 Blood Pressure 148/70( 025 9:52 AM EDT) No Eve Oliveira, PharmD documented as of this encounter Visit Diagnoses Diagnosis Severe obesity (CMS/HCC) Morbid obesity documented in this encounter Additional Health Concerns Assessment Noted Time PHQ-9 Depression Total Score: 0 06/08/20 23 1:16 PM EDT documented as of this encounter Care Teams Inflated Ball Molder Relationship Specialty Start Date End Date Morena Forte FNP [address] [place] [address] PCP - General Family Medicine 09/27/22 Jeremiah Humphrey Community Health Worker 04/18/24 Raj Galvin MD 100 [facility] 200 [place] [phone] Nephrology 08/25/24 Ely Mesa [address] [place] [phone] Thoracic Surgery 08/25/24 documented as of this encounter
--- OUTSIDE RECORDS SUMMARY | 2025-01-28 13:44 | XMS_ITS | Encounter Summary ---
Author Organization [employer] Address 75 [facility] 7t [place] [address] Care Team Providers Care Summons Server Name Role Phone Morena Forte Primary Care Provider [phone] Jeremiah Humphrey Unavailable Unavailable Raj Galvin MD Unavailable [phone] Ely Mesa Unavailable Reason for Visit * Reason Onset Date Comments pt1 12/20/2022 Encounter Details Date Type Department Care Team (Late st Contact Info) Description 12/20/2022 Telephone [facility] [address] [place] [address] Morena Forte FNP [address] [place], [place] [phone] pt1 Social History Tobacco Use Types Packs/Day [...] / denial letter via mail. PT-1 Request [id number] Pending - [facility] [address] [facility] [phone] * Telephone Encounter - Dami Nam - 12/20/2022 1:54 PM EST Tc from pt requesting pt1 Location: [facility] [address] [address], [place] [address] Specialty: left lung surgery Time:9: 30 am, 9 am, 6 am Date:01/02/23, 01/08/23, 01/09/23 Edging Catcher: no wheelchair accessible : n/a Please contact pt at [phone] documented in this encounter Plan of Treatment Not on file documented as of this encounter Visit Diagnoses Not on filedocumented in this encounter Care Teams Summons Server Relationship Specialty Start Date End Date Morena Forte FNP [address] [place] [address] PCP - General Family Medicine 09/27/22 Jeremiah Humphrey Community Health Worker 04/18/24 Raj Galvin MD 100 [facility] 200 [place] [address] Nephrology 08/25/24 Ely Mesa [address] [place] [phone] Thoracic Surgery 08/25/24 documented as of this encounter
--- OUTSIDE RECORDS SUMMARY | 2025-01-28 13:44 | XMS_ITS | Encounter Summary ---
Author Organization [employer] Address 75 [facility] 7t [place] [address] Care Team Providers Care Panel Flow Machine Operator Name Role Phone Morena Forte Primary Care Provider [phone] Jeremiah Humphrey Unavailable Unavailable Raj Galvin MD Unavailable [phone] Ely Mesa Unavailable Reason for Visit * Reason Onset Date Comments PT1 08/03/2023 Encounter Details Date Type Department Care Team ([facility] st Contact Info) Description 08/03/2023 Telephone [facility] MED & PEDS [address] [place], [place] [phone] Morena Forte FNP [address] [place], [place] [phone] PT1 Social History Tobacco Use Types Packs/Day [...] 09/03 Time: 2 PM Visits: n/a Address: [address] [place] [address] Facility: [facility] primary care Wheel Chair: no Single Resource Boss Needed: no cupola melter helper location confirmed: [address] [place] [address] documented in this encounter Plan of Treatment [...] documented as of this encounter Care Teams Panel Flow Machine Operator Relationship Specialty Start Date End Date Morena Forte FNP 230 [place] [address] PCP - General Family Medicine 09/27/22 Jeremiah Humphrey Community Health Worker 04/18/24 Raj Galvin MD [address] [phone] Nephrology 08/25/24 Ely Mesa [address] [place] [phone] Thoracic Surgery 08/25/24 documented as of this encounter
--- OUTSIDE RECORDS SUMMARY | 2025-01-28 13:44 | XMS_ITS | Clinical Summary ---
Author Organization [facility] Address [address] [place] [address] Phone Care Team Providers Care Home Care Aide Name Role Phone Morena Forte RN Primary [...] Lung nodule seen on imaging study 12/07/2022 Encounters Date Type Department Care Team Description 01/23/2025 5:15 PM EDT - 01/23/2025 11:59 PM EDT Hospital Encounter [facility] CT Scan [address] [place] [address] History of lung cancer Discharge Disposition: Home or Self Care from Last 3 Months Immunizations Name Administration Dates Next Due Pfizer SARS-CoV-2 COVID-19, mRNA, LNP-S, preservative free 12/10/2020,11/19/2020 Surgical History Surgery Date Site/Laterality Comments HIP ARTHROPLASTY PROCEDURE: HISTORICAL HIP REPLACEMENT CARPAL TUNNEL RELEASE Bilateral PROCEDURE: HISTORICAL CARPAL TUNNEL REL COLONOSCOPY N/A PROCEDURE: HISTORICAL COLONOSCOPY HERNIA REPAIR PROCEDURE: HISTORICAL HERNIA REPAIR/ING APPENDECTOMY PROCEDURE: SC APPENDECTOMY Medical History Medical History Date Comments Depression with anxiety DX:Depre ssion with anxiety Viral hepatitis C without hepatic coma DX:Viral hepatitis C without hepatic coma H/O: CVA (cerebrovascular accident) DX:H/O: CVA (cerebrovascular accident) HLD (hyperlipidemia) DX:HLD (hyp erlipidemia) 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 ([facility]) DX:Methadone maintenance the rapy patient ([facility]) Nicotine dependence DX:Nicotine dependence Obesity DX:Obesity Sleep disorder breathing DX:Slee p disorder breathing COPD (chronic obstructive pu lmonary disease) ([facility]) DX:COPD (chronic obstructive pulmonary disease) ([facility]) Lung cancer ([facility]) DX:Lung ca ncer ([facility]) Mild intermittent asthma, uncomplicated DX:Mild intermittent asthma, uncomplicated Family History Medical History Relation Name Comments No Known Problems Father Diabetes Mother Hypertension Mother Relation Name Status Comments Father Mother Social History Tobacco Use Types Packs/Day Years Used Date Smoking Tobacco: Some Days Cigarettes 1 47.3 Started: 10/22/1977 Smokeless Tobacco: Never Alcohol Use Standard Drinks/Week Comments Never 0 (1 standard drink = 0.6 oz pur e alcohol) Sex and Gender Information Value Date Recorded Sex Assigned at Male 01/22/2025 8:57 AM EDT Legal Sex Male 2:33 PM EST Gender Identity Male 01/22/2025 8:57 AM EDT Sexual Orientation Not on file Obstetrics History [...] Care Team (Late st Contact Info) Description 02/05/2025 10:45 AM EDT Office Visit Thoracic Surgery - [place] [address] [facility] [address] [place] [id number] Amara Castorena PA [address] [facility], [address] [place] [address] Health Maintenance Due Date Last Done Comments Hepatitis A Vaccines (1 of 2 - Risk 2-dose series) 02/05/1984 Hepatitis B Vaccines (1 of 3 - 19+ 3-dose series) 02/05/1984 Zoster Vaccines (1 of 2) 02/05/1984 COVID-19 Vaccine (3 - Pfizer risk series) 01/07/2021 12/10/2020, 11/19/2020 Pneumococcal Vaccine: 50+ Years (2 of 2 - PCV) 07/29/2022 07/29/2021 Pneumococcal Vaccine: Pediatrics (0 to 5 Years) and At-Risk Patients (6 to 64 Years) (2 of 2 - PCV) 07/29/2022 07/29/2021 Colorectal Cancer Screening: Colonoscopy 11/20/2023 HIV Screening 11/20/2023 Hepatitis C Screening 11/20/2023 Lung Cancer Screening (Low Dose CT) 11/20/2023 Social Influencers of Health Screening 11/20/2023 Influenza Vaccine (Season Ended) 2025 08/07/2015 Depression Screening 06/30/2025 06/30/2024 Cholesterol Screening (Lipid Panel) 11/07/2029 11/07/2024 DTaP,Tdap,and Td Vaccines (3 - Td or Tdap) 09/14/2030 09/14/2020, 03/12/2015 RSV Immunization Adult Patients (1 - 1-dose 75+ series) 02/05/2040 HIB [...] age to complete this topic Meningococcal B Vaccine Aged Out No l onger eligible based on patient's age to complete this topic RSV Immunization Patients Under 20 months Aged Out No longer eligible b ased on patient's age to complete this topic Varicella Vaccines Aged Out No longer eligible based on patient's age to complete this topic Procedures Procedure Name Priority Date/Time Associated Diagnosis Comments CT CHEST WO CONTRAST Routine 01/23/2025 5:45 PM EDT History of lung cancer from Last 3 Months Results * CT Chest wo Contrast (01/23/2025 5:45 PM EDT) Anatomical Region Laterality Modality Body Computed Tomogra phy 01/25/2025 8:46 AM EDT Impressions 01/25/2025 9:10 AM EDT No convincing change at the site of the previous left upper lobe segmentectomy. There are new groundglass opacities in the right lung. Slight interval increase in size of a nonspecific left lower lobe solid nodule which now measures 0.6 cm. History of adenocarcinoma. If no intervention is undertaken recommend follow-up CT in 3 months. ?? -------- FINAL REPORT -------- Dictated By: Bashir Markham Dictated Date: 01/25/2025 08:46 ET Assigned Physician: Bashir Markham Reviewed and Electronically Signed By: Bashir Markham Signed Date: 01/25/2025 09:10 ET Workstation ID: [id number] Transcribed By: Self Edit Transcribed Date: 01/25/2025 08:46 ET Narrative 01/25/2025 9:10 AM EDT EXAMINATION: CT CHEST WITHOUT CONTRAST CLINICAL INFORMATION: Post left upper lobe segmentectomy. ?? VATS (Navigational bronchoscopy with transbronchial biopsies, dye ?? marking, da Renuka left upper lobe wedge with completion segmentectomy, ?? mediastinal lymphadenectomy 01/09/23 ?-ADENOCARCINOMA. COMPARISON: Portions of previous 08/08/24 ?? TECHNIQUE: Multidetector CT. Examination of the chest. Examination of the chest without IV contrast. Reformatting in the coronal and sagittal planes. DLP: 1219 mGy-cm Dose optimization was performed including the use of low-dose iterative reconstruction technique with automatic exposure control based on patient size. Type of contrast: None Volume of IV contrast: None Volume of contrast discarded: 0 mL FINDINGS: LUNG: Linear secretions in the right side of the mid trachea. There is no suspicious change at the left upper segmentectomy margin with some nodularity abutting the upper fissure. There are multiple new groundglass opacities. There is a groundglass opacity with irregular margins in the periphery of the anterolateral right upper lobe 01/23/25-2.0 x 0.6 cm () There is a poorly defined peripheral groundglass opacity anterolateral right upper lobe 01/23/25-3.4 x 1.3 cm () There is a new groundglass opacity in the central aspect of the right upper lobe 01/23/25-2.5 x 1.4 cm ?? There is a somewhat irregular opacity in the posteromedial left lower lobe which has some central low attenuation 01/23/25-1.2 x 0.9 cm (/193) 06/08/24-1.4 x 0.9 cm Round nodule in the periphery of the posterolateral left lower lobe 01/23/25-0.6 cm (156) 08/08/24-0.4 cm I cannot definitely identify this nodule in 10/27/22 MEDIASTINUM: ??There is some relatively low density between the pericardium and the deep aspect of the sternum slightly to the left of midline 01/23/25-1.9 x 1.7 cm () 08/08/24-1.8 x 1.7 cm This is probably unchanged when compared to low-dose 10/27/22 CT CARDIAC: The heart is not enlarged. No pericardial fluid or thickening ?? CORONARY CALCIFICATION: ??There are mild coronary calcifications. VASCULAR: There is no thoracic aortic aneurysm. The main pulmonary artery is mildly prominent. ?? PLEURA: There are some areas of pleural thickening on the left. There is no significant pleural fluid or pneumothorax. ?? AXILLA/CHEST WALL: There are no enlarged axillary lymph nodes. No chest wall mass demonstrated ?? VISUALIZED UPPER ABDOMEN: ??No suspicious abnormality on limited assessment of the visualized upper abdomen. There are multiple small gallstones. MUSCULOSKELETAL: No suspicious focal bony lesion. ?? Procedure Note Bashir Markham MD - 01/25/2025 EXAMINATION: CT CHEST WITHOUT CONTRAST CLINICAL INFORMATION: Post left upper lobe segmentectomy. VATS (Navigational bronchoscopy with transbronchial biopsies, dye marking, da Renuka left upper lobe wedge with completion segmentectomy, mediastinal lymphadenectomy 01/09/23 ?-ADENOCARCINOMA. COMPARISON: Portions of previous 08/08/24 TECHNIQUE: Multidetector CT. Examination of the chest. Examination of the chest without IV contrast. Reformatting in the coronal and sagittal planes. DLP: 1219 mGy-cm Dose optimization was performed including the use of low-dose iterativereconstruction technique with automatic exposure control based on patientsize. Type of contrast: None Volume of IV contrast: None Volume of contrast discarded: 0 mL FINDINGS: LUNG: Linear secretions in the right side of the mid trachea. There is nosuspicious change at the left upper segmentectomy margin with somenodularity abutting the upper fissure. There are multiple new groundglass opacities. There is a groundglass opacity with irregular margins in the periphery ofthe anterolateral right upper lobe 01/23/25-2.0 x 0.6 cm () There is a poorly defined peripheral groundglass opacity anterolateralright upper lobe 01/23/25-3.4 x 1.3 cm () There is a new groundglass opacity in the central aspect of the rightupper lobe 01/23/25-2.5 x 1.4 cm There is a somewhat irregular opacity in the posteromedial left lower lobewhich has some central low attenuation 01/23/25-1.2 x 0.9 cm () 06/08/24-1.4 x 0.9 cm Round nodule in the periphery of the posterolateral left lower lobe 01/23/25-0.6 cm (3/156) 08/08/24-0.4 cm I cannot definitely identify this nodule in 10/27/22 MEDIASTINUM: There is some relatively low density between the pericardiumand the deep aspect of the sternum slightly to the left of midline 01/23/25-1.9 x 1.7 cm (/73) 08/08/24-1.8 x 1.7 cm This is probably unchanged when compared to low-dose 10/27/22 CT CARDIAC: The heart is not enlarged. No pericardial fluid or thickening CORONARY CALCIFICATION: There are mild coronary calcifications. VASCULAR: There is no thoracic aortic aneurysm. The main pulmonary arteryis mildly prominent. PLEURA: There are some areas of pleural thickening on the left. There isno significant pleural fluid or pneumothorax. AXILLA/CHEST WALL: There are no enlarged axillary lymph nodes. No chestwall mass demonstrated VISUALIZED UPPER ABDOMEN: No suspicious abnormality on limited assessmentof the visualized upper abdomen. There are multiple small gallstones. MUSCULOSKELETAL: No suspicious focal bony lesion. IMPRESSION: No convincing change at the site of the previous left upper lobesegmentectomy. There are new groundglass opacities in the right lung. Slight intervalincrease in size of a nonspecific left lower lobe solid nodule which nowmeasures 0.6 cm. History of adenocarcinoma. If no intervention is undertaken recommend follow-up CT in 3 months. -------- FINAL REPORT -------- Dictated By: Bashir Markham Dictated Date: 01/25/2025 08:46 ET Assigned Physician: Bashir Markham Reviewed and Electronically Signed By: Bashir Markham Signed Date: 01/25/2025 09:10 ET Workstation ID: [id number] Transcribed By: Self Edit Transcribed Date: 01/25/2025 08:46 ET Smitha Fung NP IMG CT PROCEDURES Final Res ult from Last 3 Months Insurance MEDICAID - [place] Advance Directives Documents on File Type Date Recorded Patient Access Services Assistant Expl anation Health Care Decision (hx) 08/04/2018 [...] (hx) 08/04/2018 AD ORR DIRECTIVE Care Teams Home Care Aide Relationship Specialty Start Date End Date Morena Forte RN [address] [place] [id number] PCP - General 03/12/24
--- OUTSIDE RECORDS SUMMARY | 2025-01-28 13:44 | XMS_ITS | Encounter Summary ---
Author Organization [employer] Address [address] [facility] 7[address] [place] [address] Care Team Providers Care Network Director Name Role Phone Morena Forte Primary Care Provider [phone] Jeremiah Humphrey Unavailable Unavailable Raj Galvin MD Unavailable [phone] Ely [place] Unavailable Encounter Details Date Type Department Care Team (Late st Contact Info) Description 02/15/2023 Telephone [facility] MEDICINE [address] [place] [address] Morena Forte FNP [address] [place], [place] [phone] Social History Tobacco Use Types Packs/Day Years [...] on filedocumented in this encounter Care Teams Network Director Relationship Specialty Start Date End Date Morena Forte FNP [address] [place] [address] PCP - General Family Medicine 09/27/22 Jeremiah Humphrey Community Health Worker 04/18/24 Raj Galvin MD [address] [address] Nephrology 08/25/24 Ely Mesa [address] [place] [phone] Thoracic Surgery 08/25/24 documented as of this encounter
--- OUTSIDE RECORDS SUMMARY | 2025-01-28 13:44 | XMS_ITS | Encounter Summary ---
Author Organization [employer] Address [address] [facility] 7t [place] [address] Care Team Providers Care General Milling Superintendent Name Role Phone Morena Forte Primary Care Provider [phone] Jeremiah Humphrey Unavailable Unavailable Raj Galvin MD Unavailable [phone] E[place] Unavailable Reason for Visit * Reason Onset Date Comments PT1 05/28/2023 Encounter Details Date Type Department Care Team (Late st Contact Info) Description 05/28/2023 Telephone [facility]INE [address] [place] [address] Morena Forte FNP [address] [place], [place] [phone] PT1 Social History Tobacco Use Types Packs/Day [...] be a van transportation not a car Location:[address] [place] [id number] Specialty: Podiatry Date&Time:N/a Roll Carrier:No Pt will be using a cane PT1 Date: 06/01/2023 Time: 2:15 pm address: [address] [facility] specialty: Pulmonogists drone pilot: N/A Wheelchair:N/A documented in this encounter Plan of Treatment Not on file documented as of this encounter Visit Diagnoses Not on filedocumented in this encounter Additional Health Concerns Assessment Noted Time PHQ-9 Depression Total Score: 16 023 9:44 AM EDT documented as of this encounter Care Teams General Milling Superintendent Relationship Specialty Start Date End Date Morena Forte FNP [address] [place] [address] PCP - General Family Medicine 09/27/22 Jeremiah Humphrey Community Health Worker 04/18/24 Raj Galvin MD [address] [phone] Nephrology 08/25/24 Ely Mesa [address] [place] [phone] Thoracic Surgery 08/25/24 documented as of this encounter
--- OUTSIDE RECORDS SUMMARY | 2025-01-28 13:44 | XMS_ITS | Encounter Summary ---
Author Organization [facility] Address [address] [place] [address] Care Team Providers Care Grain Blender Name Role Phone Morena Forte hand booked folder and stitcher Provider Reason for Referral * Imaging (Routine) - Closed Specialty Diagnoses / Procedures Referred By Hayley t Referred To Contact Radiology Diagnoses History of lung cancer Procedures CT Chest wo Contrast Smitha Fung NP [address] [address] Phone: tel: fax: [facility] Referral ID Status Reason Start Date Expiration Date Visits Re quested Visits Authorized [id number] Closed 11/03/2024 11/03/2025 1 1 Reason for Visit * Imaging (Routine) - Closed Specialty Diagnoses / Procedures Referred By Hayley romero Referred To Contact Radiology Diagnoses History of lung cancer Procedures CT Chest wo Contrast Smitha Fung NP [address] [address] Phone: tel: fax: [facility] Referral ID Status Reason Start Date Expiration Date Visits Re quested Visits Authorized [id number] Closed 11/03/2024 11/03/2025 1 1 Encounter Details Date Type Department Care Team (Latest Contact Info) Description 01/23/2025 5:15 PM EDT - 01/23/2025 11:59 PM EDT Hospital Encounter [facility] CT Scan [address] [place] [phone] History of lung cancer Discharge Disposition: Home or Self Care Social History Tobacco Use Types Packs/Day Years [...] AM EDT Sexual Orientation Not on file documented as of this encounter Medications at Time of Discharge duloxetine HCl (CYMBALTA ORAL) Take by mouth. fluticasone furoate-vilantero L (BREO ELLIPTA) 100-25 mcg/dose inhaler Inhale into the lungs. furosemide (LASIX) 20 mg tablet Take 1 Tablet by mouth daily. gabapentin (NEURONTIN) 100 mg capsule Take 1 Capsule by mouth 3 times daily. methadone (DOLOPHINE) 10 mg tablet Take 9 Tablets by mouth daily. rosuvastatin (CRESTOR) 10 mg tablet Take 1 Tablet by mouth daily. semaglutide (Wegovy) 0.5 mg/0.5 mL injection pen Inject into the skin. sennosides 17.2 mg tablet Take 1 Tablet by mouth every evening. traZODone (DESYREL) 100 mg tablet Take 1 Tablet by mouth at bedtime as needed. documented as of this encounter Discharge Disposition Disposition Code Departure Means Destination Home or Self Care documented in this encounter Plan of Treatment Upcoming Encounters Date Type Department Care Team ([facility] st Contact Info) Description 02/05/2025 10:45 AM EDT Office Visit Thoracic Surgery - [place] [address] [facility] [address] [place] [phone] Amara Castorena PA [address] [facility], [address] [place] [address] documented as of this encounter Procedures Procedure Name Priority Date/Time Associated Diagnosis Comments CT CHEST WO CONTRAST Routine 01/23/2025 5:45 PM EDT History of lung cancer documented in this encounter Results * CT Chest wo Contrast (01/23/2025 [...] Signed Date: 01/25/2025 09:10 ET Workstation ID: [id number] Transcribed By: Self Edit Transcribed Date: 01/25/2025 [...] central low attenuation 01/23/25-1.2 x 0.9 cm (193) 06/08/24-1.4 x 0.9 cm Round nodule in [...] Signed Date: 01/25/2025 09:10 ET Workstation ID: [id number] Transcribed By: Self Edit Transcribed Date: 01/25/2025 08:46 ET us Smitha Fung WORK[employer]ENSATION MAGISTRATE IMG CT PROCEDURES Final Res ult documented in this encounter Visit Diagnoses Diagnosis History of lung cancer Personal history of malignant neoplasm of bronchus and lung documented in this encounter Care Teams Grain Blender Relationship Specialty Start Date End Date Morena Forte RN [address] [address] PCP - General 03/12/24 documented as of this encounter
--- OUTSIDE RECORDS SUMMARY | 2025-01-28 13:44 | XMS_ITS | Data Portability ---
Author Organization [place]EL Gabe Lanier [facility], [facility] Address [address] [place] [address] Care Team Providers Care Special Education Curriculum Specialist Name Role Phone [employer]BER [employer] Referring Provider [phone] [facility] Primary Care Prov ider Assessment Encounter [...] LastModifiedTime 07/24/2007/24/2024 XR, knee, 3 view [email or web address] ?Encry pted=s hAaTro YD8dLq bEUv6g %2BXZw aYqtaq 0bqfl% 2Fg9IQ a4ajBk vP9nXo QUaueC m3YtLR FvZlgJ JJ8mAn HZtai3 0a1615 AC0Kqa 3%2BHV qeiKiQ trMwF INTERFACE [facility] [address] [facility] [address], [place], [address], 07/24/2024 14:30:25 07/24/2007/24/2024 XR, knee, 3 view [email or web address] ?Encry pted=s hAaTro YD8dLq bEUv6g %2BXZw aYqtaq 0bqfl% 2Fg9IQ a4ajBk vP9nXo QUaueC m3YtLR FvZlgJ JJ8mAn HZtai3 2u9121 AC0Kqa 3%2BHV qeiKiQ trMwF INTERFACE [facility] [address], [place], [address], 07/24/2024 14:30:27 Result Notes None recorded. Problems Name Problem SNOMED Code Status Onset Date Resolution Date Notes Provider Name and Address Organization Details Recorded Time History of left total knee replacemen t [id number] 105 Active 2023 Franklyn Eagle MD [address], [place], [address] , [facility] 4 14:40:55 Problem Notes None recorded. Procedures Surgical History Date Name Laterality Status Provider Name and Address Organization Details Recorded Time 4 25676 Therapeutic Exercise (1:1) completed David Weiss DPT [address] [facility], [place], [address], [facility] 08/06/2024 13:06:24 4 61571 Therapeutic Exercise (1:1) completed Emy Lora PTA [address] [facility], [place], [address], [facility] 08/05/2024 14:23:00 4 92185: Hot or Cold Pack completed Emy Lora PTA [address] [facility], [place], [address], [facility] 08/05/2024 14:23:05 4 03901: Therapeutic Activities (1:1) completed David Weiss DPT [address] [facility], [place], [address], [facility] 07/30/2024 17:25:57 4 55858 Therapeutic Exercise (1:1) completed David Weiss DPT [address], [place], [address], [facility] 07/30/2024 17:25:51 4 50219: Hot or Cold Pack completed David Weiss DPT [address], [place], [address], [facility] 07/29/2024 09:18:32 4 14465 Therapeutic Exercise (1:1) completed David Weiss DPT [address], [place], [address], [facility] 07/28/2024 09:09:40 4 90169: Hot or Cold Pack completed David Weiss DPT [address], [place], [address], [facility] 07/28/2024 09:09:40 4 41830 Therapeutic Exercise (1:1) completed Emy Lora, SECURITY INCIDENT RESPONSE ENGINEER [address], [place], [address], [facility] 07/23/2024 14:18:07 4 63195: Hot or Cold Pack completed Emy Lora, SECURITY INCIDENT RESPONSE ENGINEER [address], [place], [address], [facility] 07/23/2024 14:18:13 4 63801 Therapeutic Exercise (1:1) completed David Weiss DPT [address], [place], [address], [facility] 07/18/2024 14:56:57 4 19191: Hot or Cold Pack completed David Weiss DPT [address], [place], [address], [facility] 07/17/2024 09:25:22 4 61186: Gait training completed David Weiss DPT [address], [place], [address], [facility] 07/18/2024 14:57:04 4 22262 Therapeutic Exercise (1:1) completed David Weiss, DPT [address], [place], [address], [facility] 07/16/2024 14:20:05 4 20629: Hot or Cold Pack completed David Weiss, DPT [address], [place], [address], [facility] 07/15/2024 10:03:58 4 02181 Therapeutic Exercise (1:1) completed David Weiss, DPT [address], [place], [address], [facility] 07/10/2024 11:09:13 4 13683: Hot or Cold Pack completed David Weiss, DPT [address], [place], [address], [facility] 07/10/2024 11:09:13 4 65117 Therapeutic Exercise (1:1) completed Emy Lora, SECURITY INCIDENT RESPONSE ENGINEER [address], [place], [address], [facility] 07/09/2024 14:17:25 4 30881: Hot or Cold Pack completed Emy Lora, SECURITY INCIDENT RESPONSE ENGINEER [address], [place], [address], [facility] 07/09/2024 14:19:16 4 54830 Therapeutic Exercise (1:1) completed Emy Lora, SECURITY INCIDENT RESPONSE ENGINEER [address], [place], [address], [facility] 07/04/2024 15:12:36 4 50284: Hot or Cold Pack completed Emy Geno, SECURITY INCIDENT RESPONSE ENGINEER [address], [place], [address], [facility] 07/04/2024 15:12:41 4 15440 Therapeutic Exercise (1:1) completed Eddi Vallecillo SECURITY INCIDENT RESPONSE ENGINEER [address] [facility], [place], [address], [facility] 07/02/2024 14:27:49 4 01888: Hot or Cold Pack completed Eddi Vallecillo SECURITY INCIDENT RESPONSE ENGINEER [address] [facility], [place], [address], [facility] 07/02/2024 14:54:49 4 89955 Therapeutic Exercise (1:1) completed David Weiss DPT [address] [facility], [place], [address], [facility] 06/27/2024 15:35:14 4 06621: Low complexity PT Eval completed David Weiss DPT [address] [facility], [place], [address], [facility] 06/27/2024 15:34:37 4 58991 Therapeutic Exercise (1:1) completed David Weiss DPT [address] [facility], [place], [address], [facility] 06/04/2024 13:08:24 4 83103: Low complexity PT Eval completed David Weiss DPT [address] [facility], [place], [address], [facility] 06/04/2024 13:08:27 Imaging Results Imaging Date Name Status LastModified by [facility] Details LastModified Time 07/24/2024 XR, knee, 3 view completed INTERFACE [facility] [address] [facility], [place], [address], 07/24/2024 14:30:25 07/24/2024 XR, knee, 3 view completed INTERFACE [facility] [address], [place], [address], 07/24/2024 14:30:27 Procedure Notes None recorded. Medical Equipment None Reported. Allergies Allergen ID Allergen Name Allergen Category Reaction Reaction Severity Criticality Documentation Date Start Date Code Code System Note Provider Name and Address Organization Details Recorded Time 37371 Product containin g penicilli n (product) medicatio n Not available Not available Not available 12/24/20232019 95558 8001 SNOMED Not Available [facility] 10:54:17 Medications Name Sig Start Date Stop [...] SNOMED-CT Code Diagnosis ICD10 Code Diagnosis Note [id number] Delmi Najera, OUTBOUND CALL CENTER REPRESENTATIVE [facility] [address] [place] [address] 06/03/2024 08:54:33 06/24/2024 13:05:50 Osteoarthritis of left knee joint 7770423912 56246 M17.12 [id number] Franklyn Eagle MD [facility] [address] [place] [address] 06/03/2024 09:03:11 06/24/2024 13:05:40 Osteoarthritis of left knee joint 1024584807 27691 M17.12 [id number] David Weiss, DPT [place] [place] [facility] [address] [place] [place] [address] 06/04/2024 12:26:27 06/04/2024 13:20:33 Osteoarthritis of left knee joint 9195620388 05730 M17.12 [id number] David Weiss, DPT [place] [place] [facility] [address] [facility] [address] 06/27/2024 14:03:01 06/27/2024 14:49:48 History of left total knee replacement 3679401807 027319 Z96.652 Z47.1 [id number] Dami Curtis PA-C [facility] [address] [place] [address] 06/26/2024 10:13:16 07/21/2024 14:50:44 History of left total knee replacement 3289359370 914405 Z96.580 [id number] David Weiss, DPT [place] [facility] [address] [place] [address] 07/02/2024 13:09:05 07/02/2024 16:49:14 History of left total knee replacement 0385567289 514173 Z96.652 Z47.1 [id number] David Weiss, DPT [place] [facility] [address] [facility] [address] 07/04/2024 14:29:22 07/04/2024 15:58:17 History of left total knee replacement 8299177128 557505 Z96.652 Z47.1 [id number] David Weiss, DPT [place] [facility] [address] [place] [address] 07/09/2024 13:28:20 07/09/2024 14:29:46 History of left total knee replacement 9859699617 060787 Z96.652 Z47.1 [id number] David Weiss, DPT [place] [facility] [address] [place] [address] 07/11/2024 14:08:48 07/11/2024 15:42:43 History of left total knee replacement 5857816981 653206 Z96.652 Z47.1 [id number] David Weiss, DPT [place] [facility] [address] [place] [address] 07/16/2024 13:23:13 07/16/2024 14:25:33 History of left total knee replacement 3709188464 562977 Z96.652 Z47.1 [id number] David Weiss, DPT [place] [facility] [address] [place] [address] 07/18/2024 13:26:10 07/18/2024 15:06:24 History of left total knee replacement 8009943770 691358 Z96.652 Z47.1 [id number] David Weiss, DPT [place] [facility] [address] [place] [address] 07/23/2024 13:38:31 07/23/2024 14:36:16 History of left total knee replacement 2318532165 469036 Z96.652 Z47.1 [id number] MD Jenni Brown [address] floor [address] [place] [address] 07/24/2024 14:13:47 08/08/2024 14:44:20 History of left total knee replacement 3669502971 418878 Z96.042 [id number] David Fishersheryl, DPT [place] [facility] [address] [place] [address] 07/28/2024 15:25:42 07/28/2024 17:21:25 History of left total knee replacement 7281373536 126528 Z96.652 Z47.1 [id number] [facility] [address] [facility] [place] [address] 07/30/2024 13:18:20 07/30/2024 15:20:45 History of left total knee replacement 5087229109 809414 Z96.652 Z47.1 [id number] [facility] [address] [place] [address] 08/05/2024 13:40:14 08/05/2024 14:25:57 History of left total knee replacement 2464235678 918839 Z96.652 Z47.1 [id number] [facility] [address] [place] [address] 08/07/2024 14:12:37 08/07/2024 15:09:39 History of left total knee replacement 2848000927 234503 Z96.652 Z47.1 [id number] David Weiss[facility] [address] [place] [address] 08/13/2024 16:28:28 08/13/2024 17:33:06 History of left total knee replacement 1333991978 280471 Z96.652 Z47.1 [id number] David Gonzalezscarsheryl DPT [place] [place] [facility] [address] [facility] [address] 08/15/2024 13:39:23 08/18/2024 08:00:07 History of left total knee replacement 3451573643 554766 Z96.652 Z47.1 [id number] David [facility], [facility] [address] [facility] [address] 08/19/2024 14:31:48 08/19/2024 15:33:18 History of left total knee replacement 7501492671 466651 Z96.652 Z47.1 Health Concerns Section Related Observation LastModified by Organization Detai ls LastModified Time None Recorded Concern Status LastModified by Organization Details LastModified Time None Recorded Advance Directives Directive None Recorded Payers Encounter Date Sequence Insurance Name Policy Number Policy Jones Covered Member ID Jones Member ID Guarantor Name 08/05/2024 1 [place] Dorsey [id number] Dru Howell Willian 08/07/2024 1 [place] [facility]Du Howell Willian [id number] Dru Lynda Willian 08/13/2024 1 [place] Dru Howell Willian [id number] Dru Howell Willian 08/15/2024 1 [place] Dru Howell Willian [id number] Dru Howell Willian 08/19/2024 1 [place] [facility] Dru Howell Willian [id number] Dru Howell Willian Notes Date Note Type Note Provider Name and Address Organization Details Recorded Time 08/05/2024 text/html Patient reports he is very stiff today and can barely move his leg. Emy Lora, SECURITY INCIDENT RESPONSE ENGINEER [address], [place], [address], [facility] 08/05/2024 14:23:43 08/07/2024 text/html Patient reports falling while at the dentist yesterday. States having a small abrasion over the proximal tibia, but is able to weight bear normally. Reports that the knee is sore, but wants to try to perform PT exercises. David Weiss, DPT [address], [place], [address], [facility] 08/07/2024 15:06:54 08/13/2024 text/html Patient reports he is having a bad day. David Weiss, DPT [address], [place], [address], [facility] 08/14/2024 09:10:26 08/15/2024 text/html Patient continues to report he is not doing well. He has increased pain in his knee that limits his ADLs. Emy Lora, SECURITY INCIDENT RESPONSE ENGINEER [address], [place], [address], [facility] 08/15/2024 14:29:11 08/19/2024 text/html Patient reports that the knee is improving and less stiff feeling today. David Weiss, [address]T [address], [place], [address], [facility] 08/19/2024 15:28:49
--- OUTSIDE RECORDS SUMMARY | 2025-01-28 13:44 | XMS_ITS | Encounter Summary ---
Author Organization [employer] Address [address] [place] [address] Care Team Providers Care Distresser Name Role Phone Morena Forte Primary Care Provider [phone] Jeremiah Humphrey Unavailable Unavailable Raj Galvin MD Unavailable [phone] Unavailable Encounter Details Date Type Department Care Team (Late st Contact Info) Description 01/26/2025 Orders Only [facility] [address] [place] [address] Provider, MD Kelvin Social History Tobacco Use Types Packs/Day Years [...] the past 12 months, has t he [employer], gas, oil or water [employer] threatened to shut off services in your [...] Oliveira, PharmD documented as of this encounter Procedures Procedure Name Priority Date/Time Associated Diagnosis Comments CT CHEST W CONTRAST Routine 01/28/2025 1 1:[address] CHEST WO CONTRAST Routine 01/23/2025 12:33 PM EDT documented in this encounter Results * CT Chest w/ Contrast (01/28/2025 11:49 AM EDT) Anatomical Region Laterality Modality Body, Chest Computed Tomogra phy 01/28/2025 11:4 9 AM EDT Narrative 01/28/2025 1:03 PM EDT ? [facility] ?[address] ?[place] [address] ? CT Scan Report ? Signed ? Patient: Willian,Dru A ?MR#: [id number] ?? 1 ? : 1965 ?Acct:[id number] ? Age/Sex: 59 / M ?ADM Date: 01/28/25 ? Loc: HO.CT ? Attending Dr: Linda Ulloa MD ? Ordering Physician: Linda Ulloa MD ?? Date of Service: 01/28/25 ?? Procedure(s): CT chest w IV con ?? Accession Number(s): [id number] ? cc: Linda Ulloa MD; Morena Forte UTILIZATION MANAGEMENT UM NURSE ? Report Number: ?? [id number]: Total DLP = ??220.00 mGy-cm ?? EXAMINATION: [...] DD/ 1149 ? TD/TT: 01/28/25 1200 ? Faa Certified Powerplant Mechanic: ? Procedure Note Yanely Jimenez - 01/28/[address] [place] [address] [address] Scan Report Signed Patient: Dru Dorsey AMR#: [id number] 1 : 1965Acct:[id number] Age/Sex: 59 / MADM Date: 01/28/25 Loc: HO.CT Attending Dr: Linda Ulloa MD Ordering Physician: Linda Ulloa MD Date of Service: 01/28/25 Procedure(s): CT chest w IV con Accession Number(s): [id number] cc: Linda Ulloa MD; Morena Forte UTILIZATION MANAGEMENT UM NURSE Report Number: [id number]: Total DLP = 220.00 mGy-cm EXAMINATION: CT [...] 01/28/25 1301 DD/ 1149 TD/TT: 01/28/25 1200 Faa Certified Powerplant Mechanic: [facility] External Provider IMG CT PROCEDURES Final Result * CT Chest w/o Contrast (01/23/2025 12:33 PM EDT) Anatomical Region Laterality Modality Body, Chest Computed Tomogra phy Historical Provider MD GOMEZ CT PROCEDURES Final R esult documented in this encounter Visit Diagnoses Not on filedocumented in this encounter Additional Health Concerns Assessment Noted Time PHQ-9 Depression Total Score: 8 06/30/20 11:12 AM EDT documented as of this encounter Care Teams Distresser Relationship Specialty Start Date End Date Morena Forte FNP [address] [place] [address] PCP - General Family Medicine 09/27/22 Jeremiah Humphrey Community Health Worker 04/18/24 Raj Galvin MD [address] [place] [address] Nephrology 08/25/24 Ely Mesa [address] [place] [address] Thoracic Surgery 08/25/24 documented as of this encounter
--- OUTSIDE RECORDS SUMMARY | 2025-01-28 13:45 | XMS_ITS | Encounter Summary ---
Author Organization [employer] Address [address] [facility] 7t [place] [address] Care Team Providers Care Boiler Coverer Helper Name Role Phone Morena Forte Primary Care Provider [phone] Jeremiah Humphrey Unavailable Unavailable Raj Galvin MD Unavailable [phone] Unavailable Reason for Visit * Reason Onset Date Comments PT1 03/24/2024 Encounter Details Date Type Department Care Team (Late st Contact Info) Description 03/24/2024 Telephone [facility] [address] [place] [address] Morena Forte FNP [address] [place], [place] [id number] PT1 Social History Tobacco Use Types Packs/Day [...] name: Hemant Gary DPM Podiatry Facility Address: [address] [place] [address] Escort needed: Y/N: No Do you have a wheelchair: Y/N: No Cane If yes- Manual or electric: n/a Visits: n/a documented in this encounter Plan of Treatment Not on file documented as of this encounter Goals Goal Patient Goal Type Associated Problems Recent Progress Patient-Stated? Author Blood Pressure < 140/90 Blood Pressure 148/70( 025 9:52 AM EDT) No Rivers-Eve Parham, PharmD documented as of this encounter Visit Diagnoses Not on filedocumented in this encounter Additional Health Concerns Assessment Noted Time PHQ-9 Depression Total Score: 0 06/08/20 23 1:16 PM EDT documented as of this encounter Care Teams Boiler Coverer Helper Relationship Specialty Start Date End Date Morena Forte FNP [address] [place] [address] PCP - General Family Medicine 09/27/22 Jeremiah Humphrey Community Health Worker 04/18/24 Raj Galvin MD [address] [address] Nephrology 08/25/24 Ely Mesa [address] [place] [address] Thoracic Surgery 08/25/24 documented as of this encounter
--- OUTSIDE RECORDS SUMMARY | 2025-01-28 13:45 | XMS_ITS | Encounter Summary ---
Author Organization [employer] [facility] Address [address] [facility] 7t [place] [address] Care Team Providers Care Construction Project Coordinator Name Role Phone Morena Forte Primary Care Provider [phone] Jeremiah Humphrey Unavailable Unavailable Raj Galvin MD Unavailable [phone] Unavailable Reason for Visit * Reason Comments Med Refill Encounter Details Date Type Department Care Team (Late st Contact Info) Description 02/26/2023 Refill [facility] [address] [place] [address] Morena Forte FNP [address] [place] [address] Social History Tobacco Use Types Packs/Day Years [...] 02/26/2023 10:33 AM EDT Pt [facility] [place]/23/23 Dx: Pulmonary emboli, lung cancer. Discharge [...] on filedocumented in this encounter Care Teams Construction Project Coordinator Relationship Specialty Start Date End Date Morena Forte FNP [address] [place] [address] PCP - General Family Medicine 09/27/22 Jeremiah Humphrey Community Health Worker 04/18/24 Raj Galvin MD [address] [place] [address] Nephrology 08/25/24 Ely Mesa [address] [place] [address] Thoracic Surgery 08/25/24 documented as of this encounter
--- OUTSIDE RECORDS SUMMARY | 2025-01-28 13:45 | XMS_ITS | Encounter Summary ---
Author Organization [employer] Address 75 [facility] 7t [place] [address] Care Team Providers Care Computer Information Science Professor Name Role Phone Morena Forte Primary Care Provider [phone] Jeremiah Humphrey Unavailable Unavailable Raj Galvin MD Unavailable [phone] Ely Mesa Unavailable Reason for Visit * Reason Onset Date Comments PT-1 01/25/2024 Encounter Details Date Type Department Care Team (Late st Contact Info) Description 01/25/2024 Telephone [facility] MEDICINE 230 [place] [address] Morena Forte FNP [address] [place], [place] [phone] PT-1 Social History Tobacco Use Types Packs/Day [...] Y/N: Yes Provider name or facility name: [facility] Facility Address: [address] Escort needed: Yes Do you have a wheelchair: Y/N: No If yes- Manual or electric: Uses Lopez Visits: 5 Monthly Patient calling requesting PT1 Home Address verified: Y/N: Yes Provider name or facility name: [facility]: Denise Carter Dmd Facility Address: [address] [place] [address] Escort needed: No Do you have a wheelchair: Y/N: No If yes- Manual or electric: Uses Lopez Visits: 3 monthly Patient calling requesting PT1 Home Address verified: Y/N: Yes Provider name or facility name: [facility] Facility Address: [address] [place] [address] Escort needed: Y/N: No Do you have a wheelchair: Y/N: No If yes- Manual or electric: Uses lopez Visits: 2 monthly Patient calling requesting PT1 Home Address verified: Y/N: Yes Provider name or facility name: [facility] Facility Address: [address] [facility]: Y/N: No Do you have a wheelchair: Y/N: No If yes- Manual or electric: Uses Visits: Twice a month Patient calling requesting PT1 Home Address verified: Y/N: Yes Provider name or facility name: [facility] Facility Address: [address] [place] [address] Escort needed: Y/N: No Do you have [...] documented as of this encounter Care Teams Computer Information Science Professor Relationship Specialty Start Date End Date Morena Forte FNP [address] [place] [address] PCP - General Family Medicine 09/27/22 Jeremiah Humphrey Community Health Worker 04/18/24 Raj Galvin MD [address] [address] Nephrology 08/25/24 Ely Mesa [address] [place] [address] Thoracic Surgery 08/25/24 documented as of this encounter
--- OUTSIDE RECORDS SUMMARY | 2025-01-28 13:45 | XMS_ITS | Encounter Summary ---
Author Organization [facility] Address 75 [facility] 7t [place] [address] Care Team Providers Care Form Builder Name Role Phone Morena Forte Primary Care Provider Jeremiah Humphrey Unavailable Unavailable Raj Galvin MD Unavailable [phone] E[address] Unavailable Reason for Visit * Reason Onset Date Comments PT1 06/06/2023 Encounter Details Date Type Department Care Team (Late st Contact Info) Description 06/06/2023 Telephone [facility] MEDICINE 230 [place] [address] Morena Forte FNP [address] [place], [place] [phone] PT1 Social History Tobacco Use Types Packs/Day [...] PT1 Date: 07/31/23 Time: 3:00 PM address: [address], [place] [address] specialty: eye care # visits: n/a associate director of biostatistics: no Wheelchair: no documented in this encounter Plan of Treatment Not on file documented as of this encounter Goals Goal Patient Goal Type Associated Problems Recent Progress Patient-Stated? Author Blood Pressure < 140/90 Blood Pressure 148/70( 025 9:52 AM EDT) No Eve Oliveira, RomeroD documented as of this encounter Visit Diagnoses Not on filedocumented in this encounter Additional Health Concerns Assessment Noted Time PHQ-9 Depression Total Score: 16 023 9:44 AM EDT documented as of this encounter Care Teams Form Builder Relationship Specialty Start Date End Date Morena Forte FNP [address] [place] [address] PCP - General Family Medicine 09/27/22 Jeremiah Humphrey Community Health Worker 04/18/24 Raj Galvin MD [address] [place] [address] Nephrology 08/25/24 Ely Mesa [address] [place] [address] Thoracic Surgery 08/25/24 documented as of this encounter
--- OUTSIDE RECORDS SUMMARY | 2025-01-28 13:45 | XMS_ITS | Encounter Summary ---
Author Organization [employer] Address 75 [facility] 7t [place] [address] Care Team Providers Care Network Project Manager Name Role Phone Morena Forte Primary Care Provider [phone] Jeremiah Humphrey Unavailable Unavailable Raj Galvin MD Unavailable [phone] E[address] Mesa Unavailable Reason for Visit * Reason Onset Date Comments PT1 11/26/2024 Encounter Details Date Type Department Care Team (Late st Contact Info) Description 11/26/2024 Telephone [facility] MEDICINE 230 [place] [address] Morena Forte FNP [address] [place], [place] [phone] PT1 Social History Tobacco Use Types Packs/Day [...] Y/N: Yes Provider name or facility name: [place] [address]. Escort needed: Y/N: No Do you have a wheelchair: Y/N: No (cane) If yes- Manual or electric: N/A Visits: (2x monthly) documented in this encounter Plan of Treatment Not on file documented as of this encounter Goals Goal Patient Goal Type Associated Problems Recent Progress Patient-Stated? Author Blood Pressure < 140/90 Blood Pressure 148/70( 025 9:52 AM EDT) No Eve Oliveira, Sharon documented as of this encounter Visit Diagnoses Not on filedocumented in this encounter Additional Health Concerns Assessment Noted Time PHQ-9 Depression Total Score: 8 06/30/20 24 11:12 AM EDT documented as of this encounter Care Teams Network Project Manager Relationship Specialty Start Date End Date Morena Forte FNP [address] [place] [address] PCP - General Family Medicine 09/27/22 Jeremiah Humphrey Community Health Worker 04/18/24 Raj Galvin MD [address] [address] Nephrology 08/25/24 Ely Mesa [address] [place] [address] Thoracic Surgery 08/25/24 documented as of this encounter
--- OUTSIDE RECORDS SUMMARY | 2025-01-28 13:45 | XMS_ITS | Encounter Summary ---
Author Organization [employer] Address 75 [facility] 7t [place] [address] Care Team Providers Care Tank Hoop Bender Name Role Phone Morena Forte Primary Care Provider [phone] Jeremiah Humphrey Unavailable Unavailable Raj Galvin MD Unavailable [phone] Ely Mesa Unavailable Reason for Visit * Reason Comments Med Refill Encounter Details Date Type Department Care Team ([facility] st Contact Info) Description 04/22/2024 Refill [facility] 505 [place], [place] [phone] Morena Forte FNP 505 [place], [place] [phone] Social History Tobacco Use Types Packs/Day Years [...] to the pharmacy. CM reached out to [facility], spoke with Dulce who states pt [...] provided on [facility] located in [facility]. Patient provided with after-hours line for [facility], , which offer nighttime triage service and option to transfer to reservation clerk provider if needed. Patient verbalizes understanding, and able to repeat back to life underwriter. A follow up call will be [...] documented as of this encounter Care Teams Tank Hoop Bender Relationship Specialty Start Date End Date Morena Forte FNP 230 [place] [address] PCP - General Family Medicine 09/27/22 Jeremiah Humphrey Community Health Worker 04/18/24 Raj Galvin MD [address] [address] Nephrology 08/25/24 Ely Mesa [address] [place] [address] [phone] Thoracic Surgery 08/25/24 documented as of this encounter
--- OUTSIDE RECORDS SUMMARY | 2025-01-28 13:45 | XMS_ITS | Encounter Summary ---
Author Organization [employer] Address 75 [facility] 7t [place] [address] Care Team Providers Care Barrel Coater Name Role Phone Morena Forte Primary Care Provider [phone] Jeremiah Humphrey Unavailable Unavailable Raj Galvin MD Unavailable [phone] E[address]a Unavailable Reason for Visit * Reason Comments Med Refill Encounter Details Date Type Department Care Team (Late st Contact Info) Description 05/13/2024 Refill [facility] MEDICINE 230 [place] [address] Morena Forte FNP [address] [place], [place] [phone] Social History Tobacco Use Types Packs/Day Years [...] Pressure 148/70( 025 9:52 AM EDT) No Emmanuel-Eve Parham, PharmD documented as of this encounter Visit Diagnoses Not on filedocumented in this encounter Additional Health Concerns Assessment Noted Time PHQ-9 Depression Total Score: 0 06/08/20 23 1:16 PM EDT documented as of this encounter Care Teams Barrel Coater Relationship Specialty Start Date End Date Morena Forte FNP 230 [place] [address] PCP - General Family Medicine 09/27/22 Jeremiah Humphrey Community Health Worker 04/18/24 Raj Galvin MD [address] [address] Nephrology 08/25/24 Ely Mesa [address] [place] [address] Thoracic Surgery 08/25/24 documented as of this encounter
--- OUTSIDE RECORDS SUMMARY | 2025-01-28 13:45 | XMS_ITS | Encounter Summary ---
Author Organization [employer] Address 75 [facility] 7t [place] [address] Care Team Providers Care Mill Stenciler Name Role Phone Morena Forte Primary Care Provider [phone] Jeremiah Humphrey Unavailable Unavailable Raj Galvin MD Unavailable [phone] E[address] Mesa Unavailable Reason for Visit * Reason Onset Date Comments Nurse Triage 11/11/2024 Encounter Details Date Type Department Care Team (Late st Contact Info) Description 11/11/2024 Telephone [facility] MEDICINE 230 [place] [address] Morena Forte FNP [address] [place], [place] [phone] Nurse Triage Social History Tobacco Use Types [...] assessment. Pt states that he is in [facility] due to the pain increasing. RN advised pt to call [facility] when he is discharge and if he [...] pt re: triage. Pt was seen at [facility] ED last month and had follow [...] states that he was not able to picker/puller antibiotic until yesterday but has since been [...] can't walk) The caller accepted this outcome. [phone] documented in this encounter Plan of Treatment Not on file documented as of this encounter Goals Goal Patient Goal Type Associated Problems Recent Progress Patient-Stated? Author Blood Pressure < 140/90 Blood Pressure 148/70( 025 9:52 AM EDT) No Eve Oliveira PharmD documented as of this encounter Visit Diagnoses Not on filedocumented in this encounter Additional Health Concerns Assessment Noted Time PHQ-9 Depression Total Score: 8 06/30/20 24 11:12 AM EDT documented as of this encounter Care Teams Mill Stenciler Relationship Specialty Start Date End Date Morena Forte FNP [address] [place] [address] PCP - General Family Medicine 09/27/22 Jeremiah Humphrey Community Health Worker 04/18/24 Raj Galvin MD [address] [address] Nephrology 08/25/24 Ely Mesa [address] [place] [address] Thoracic Surgery 08/25/24 documented as of this encounter
--- OUTSIDE RECORDS SUMMARY | 2025-01-28 13:45 | XMS_ITS | Encounter Summary ---
Author Organization [facility] Address 75 [facility] 7t [place] [address] Care Team Providers Care Blueprint Cutter Name Role Phone Morena Forte Primary Care Provider Jeremiah Humphrey Unavailable Unavailable Raj Galvin MD Unavailable [phone] E[address]a Unavailable Reason for Visit * Reason Onset Date Comments Medication Question 02/23/2023 Other 02/23/2023 Encounter Details Date Type Department Care Team ([facility] st Contact Info) Description 02/23/2023 Telephone [facility] MEDICINE 230 [place] [address] Morena Forte FNP [address] [place], [place] [phone] Medication Question; Other Social History Tobacco Use [...] to inform PCP he is currently at [facility] since 02/20/23 admitted due to breathingtrouble. Patient is due to discharge today but has not yet. Patient is requesting a call back, in regards to medication questions. No other details provided. documented in this encounter Plan of Treatment Not on file documented as of this encounter Visit Diagnoses Not on filedocumented in this encounter Care Teams Blueprint Cutter Relationship Specialty Start Date End Date Morena Forte FNP [address] [place] [address] PCP - General Family Medicine 09/27/22 Jeremiah Humphrey Community Health Worker 04/18/24 Raj Galvin MD [address] [address] Nephrology 08/25/24 Ely Mesa [address] [place] [address] Thoracic Surgery 08/25/24 documented as of this encounter
--- OUTSIDE RECORDS SUMMARY | 2025-01-28 13:45 | XMS_ITS | Encounter Summary ---
Author Organization [employer] Address 75 [facility] 7t [place] [address] Care Team Providers Care Counter Molder Name Role Phone Morena Forte Primary Care Provider [phone] Jeremiah Humphrey Unavailable Unavailable Raj Galvin MD Unavailable [phone] Ely Mesa Unavailable Reason for Visit * Reason Onset Date Comments Nurse Triage 11/22/2023 Encounter Details Date Type Department Care Team (Late st Contact Info) Description 11/22/2023 Telephone [facility] MEDICINE 230 [place] [address] Morena Forte FNP [address] [place], [place] [phone] Nurse Triage Social History Tobacco Use Types [...] documented as of this encounter Care Teams Counter Molder Relationship Specialty Start Date End Date Morena Forte FNP 230 [place] [address] PCP - General Family Medicine 09/27/22 Jeremiah Humphrey Community Health Worker 04/18/24 Raj Galvin MD 100 [facility] 200 [place] [address] Nephrology 08/25/24 Ely Mesa [address] [place] [address] Thoracic Surgery 08/25/24 documented as of this encounter
--- OUTSIDE RECORDS SUMMARY | 2025-01-28 13:45 | XMS_ITS | Encounter Summary ---
Author Organization [employer] Address 75 [facility] 7t [place] [address] Care Team Providers Care Sole Rounder Name Role Phone Morena Forte Primary Care Provider [phone] Jeremiah Humphrey Unavailable Unavailable Raj Galvin MD Unavailable [phone] E[address] Mesa Unavailable Reason for Visit * Reason Onset Date Comments Prior Authorization 01/01/2025 Encounter Details Date Type Department Care Team (Late st Contact Info) Description 01/01/2025 Telephone [facility] MEDICINE 230 [place] [address] Morena Forte FNP 505 [place] [address] Prior Authorization Social History Tobacco Use Types Packs/Day Years [...] * Telephone Encounter - TERI Steele - 01/01/2025 3:47 PM EDT He was previously on Wegovy and had been prescribed Zepbound 2.5mg subcutaneous weekly in Oct 2024,but suspect it or was accidentally discontinued. Will re-send. Since he has been on Wegovy and had good response to tx (with documentation) please let me know if goes through without PA. Thanks! * Telephone Encounter - Lucrecia Vega LPN - 01/01/2025 1:10 PM EDT Please review message below and advise Medication being request is not on med list Tc from pt, states PA needed for Tirzepatide-Weight Management 2.5 MG/0.5ML. * Telephone Encounter - Cris Kezia Sweeney - 01/01/2025 10:12 AM EDT Tc from pt, states PA needed for Tirzepatide-Weight Management 2.5 MG/0.5ML. documented in this encounter Plan of Treatment Not on file documented as of this encounter Goals Goal Patient Goal Type Associated Problems Recent Progress Patient-Stated? Author Blood Pressure < 140/90 Blood Pressure 148/70( 025 9:52 AM EDT) No Eve Oliveira, RomeroD documented as of this encounter Visit Diagnoses Diagnosis Severe obesity (CMS/HCC)- Primary Morbid obesity documented in this encounter Additional Health Concerns Assessment Noted Time PHQ-9 Depression Total Score: 8 06/30/20 24 11:12 AM EDT documented as of this encounter Care Teams Sole Rounder Relationship Specialty Start Date End Date Morena Forte FNP [address] [place] [address] PCP - General Family Medicine 09/27/22 Jeremiah Humphrey Community Health Worker 04/18/24 Raj Galvin MD 100 [facility] 200 [place] [address] Nephrology 08/25/24 Ely Meas [address] [place] [address] Thoracic Surgery 08/25/24 documented as of this encounter
--- OUTSIDE RECORDS SUMMARY | 2025-01-28 13:45 | XMS_ITS | Encounter Summary ---
Author Organization [employer] Address 75 [facility] 7t [place] [address] Care Team Providers Care Church Organist Name Role Phone Morena Forte Primary Care Provider Jeremiah Humphrey Unavailable Unavailable Raj Galvin MD Unavailable [phone] E[address] Mesa Unavailable Reason for Visit * Reason Onset Date Comments PT1 01/01/2025 Encounter Details Date Type Department Care Team (Late st Contact Info) Description 01/01/2025 Telephone [facility] MEDICINE 230 [place] [address] Morena Forte FNP [address] [place], [place] [phone] PT1 Social History Tobacco Use Types Packs/Day [...] * Telephone Encounter - Cris Sweeney - 01/01/2025 10:14 AM EDT Patient calling requesting PT1 Home Address verified: Y/N: Yes Provider name or facility name: [facility] - [address] [place] [address] Escort needed: Y/N: No Do you have a wheelchair: Y/N: Yes If yes- Manual or electric: electric Visits: (2x monthly) Patient calling requesting PT1 Home Address verified: Y/N: Yes Provider name or facility name: [address] [place] [address] Escort needed: Y/N: No Do you have a wheelchair: Y/N: Yes If yes- Manual or electric: electric Visits: (2x monthly) Patient calling requesting PT1 Home Address verified: Y/N: Yes Provider name or facility name: [facility] - 230 [place] [address] Escort needed: Y/N: No Do you have a wheelchair: Y/N: Yes If yes- Manual or electric: electric Visits: (2x monthly) documented in this encounter [...] documented as of this encounter Care Teams Church Organist Relationship Specialty Start Date End Date Morena Forte FNP 230 [place] [address] PCP - General Family Medicine 09/27/22 Jeremiah Humphrey Community Health Worker 04/18/24 Raj Galvin MD [address] [place] [address] Nephrology 08/25/24 Ely Mesa [address] [place] [address] Thoracic Surgery 08/25/24 documented as of this encounter
--- OUTSIDE RECORDS SUMMARY | 2025-01-28 13:45 | XMS_ITS | Encounter Summary ---
Author Organization [employer] Address 75 [facility] 7t [place] [address] Care Team Providers Care Manager Wellness Name Role Phone Morena Forte Primary Care Provider [phone] Jeremiah Humphrey Unavailable Unavailable Raj Galvin MD Unavailable [phone] Ely Mesa Unavailable Reason for Visit * Reason Onset Date Comments PT1 02/26/2023 Encounter Details Date Type Department Care Team (Late st Contact Info) Description 02/26/2023 Telephone [facility] MEDICINE 230 [place] [address] Morena Forte FNP [address] [place], [place] [phone] PT1 Social History Tobacco Use Types Packs/Day [...] / denial letter via mail. PT-1 Request [id number] Pending - [facility] 230 [facility] [address] PT-1 Request [id number] Pending - [facility] 60 [facility] [address] PT-1 Request [id number] Pending - [facility] [address] [facility] [address] PT-1 Request [id number] Pending - [facility] General Surgeons [address] [place] [address] [place] [phone] * Telephone Encounter - Yi Kingston - 03/20/2023 10:05 AM EDT Patient will recieve approval / denial letter via mail. PT-1 Request [id number] Pending - [facility] 230 [facility] [address] PT-1 Request [id number] Pending - [facility] [employer] 60 [facility] [address] PT-1 Request [id number] Pending - [facility] [address] [facility] [address] * Telephone Encounter - Radha Turk - 02/26/2023 8:40 AM EDT Tc from pt requesting to renew PT1 forms that On February: PT1 Name of facility: [facility] Specialty: ALL FUTURE APPT's Location: 230 [place] [address] Date: n/a Time: n/a fax: n/a Phone: n/a wheelchair: n/a Mate Ship: n/a PT1 Name of facility: [facility] Specialty: ALL FUTURE APPT's Location: [address] [place] [address] Date: n/a Time: n/a fax: n/a Phone: n/a wheelchair: n/a Mate Ship: n/a PT1 Name of facility: [facility] Specialty: ALL FUTURE APPT's Location: 60 [facility], [place] [address] Date: n/a Time: n/a fax: n/a Phone: n/a wheelchair: n/a Mate Ship: n/a PT1 Name of facility: [facility] General Surgeons Specialty: ALL FUTURE APPT's Location: [address] [place] [address] [place] [address] Date: n/a Time: n/a fax: n/a Phone: n/a wheelchair: n/a Mate Ship: n/a FOR ALL FUTURE APPT's!! Please contact pt at [phone] documented in this encounter Plan of Treatment Not on file documented as of this encounter Visit Diagnoses Not on filedocumented in this encounter Care Teams Manager Wellness Relationship Specialty Start Date End Date Morena Forte FNP [address] [place] [address] PCP - General Family Medicine 09/27/22 Jeremiah Humphrey Community Health Worker 04/18/24 Raj Galvin MD [address] [place] [address] 200 [place] [address] Nephrology 08/25/24 Ely Mesa [address] [place] [address] Thoracic Surgery 08/25/24 documented as of this encounter
--- OUTSIDE RECORDS SUMMARY | 2025-01-28 13:45 | XMS_ITS | Encounter Summary ---
Author Organization [employer] Address 75 [facility] 7t [place] [address] Care Team Providers Care Range Manager Name Role Phone Morena Forte Primary Care Provider [phone] Jeremiah Humphrey Unavailable Unavailable Raj Galvin MD Unavailable [phone] Ely Mesa Unavailable Reason for Visit * Reason Onset Date Comments PT1 05/29/2023 Encounter Details Date Type Department Care Team (Late st Contact Info) Description 05/29/2023 Telephone [facility] MEDICINE 230 [place] [address] Morena Forte FNP [address] [place], [place] [phone] PT1 Social History Tobacco Use Types Packs/Day [...] Time: 11 am Visits: Address: [place] [address] Facility: Wheel Chair: n/a Kiln Operator Helper Needed: no *Patient states PCP needs to request for patient to only get picked up in a van due to his hip and unable to fit comfortably in a sedan. Patient states prior PCP had one in place but it has . PT1 Address verified Date: 06/19/23 Time: 11:30 am Visits: Address: [place] [address] Facility: Wheel Chair: n/a Kiln Operator Helper Needed: no documented in this encounter Plan of Treatment Not on file documented as of this encounter Visit Diagnoses Not on filedocumented in this encounter Additional Health Concerns Assessment Noted Time PHQ-9 Depression Total Score: 16 023 9:44 AM EDT documented as of this encounter Care Teams Range Manager Relationship Specialty Start Date End Date Morena Forte FNP [address] [place] [address] PCP - General Family Medicine 09/27/22 Jeremiah Humphrey Community Health Worker 04/18/24 Raj Galvin MD [address] [place] [phone] Nephrology 08/25/24 Ely Mesa [address] [place] [address] Thoracic Surgery 08/25/24 documented as of this encounter
== END 2025-01-28 11:37 | disposition home or self-care (01) ==
LOC: HO.CT 11:36
PROVIDERS: PCP Registered Nurse; Visit Provider Internal Medicine
DX: C34.92 Malignant neoplasm of unspecified part of left bronchus or lung (principal)
CPT/HCPCS: 71260; Q9967

== ENCOUNTER → 2025-01-28 11:38 | Outpatient (BNV) | payer MEDICAID, SELFPAY | PROVIDERS: PCP Registered Nurse; Visit Provider Radiology Diagnostic Radiology | DX: R91.1 Solitary pulmonary nodule (principal) | CPT/HCPCS: 71260 ==

== ENCOUNTER 2025-02-17 09:41 | Outpatient (AMB) | payer MEDICAID, SELFPAY ==
[2025-02-17 09:37] VITALS: BP 142/98; PULSE 76; O2SAT 95; BMI 42.3
--- NOTE | 2025-02-17 09:37 | HO.NEPHOV ---
Vital Signs 02/17/25 09:37 02/17/25 09:49 Height 5 ft 8 in Weight 278 lb 8 oz BMI 42.3 BP 142/98 H 124/70 Blood Pressure Location Rt brachial Rt brachial Position Sitting Sitting Pulse 76 Pulse Source Pulse Oximeter Pulse Oximetry (%) 95 Oxygen Delivery Method Room Air Intake Visit Reasons: Proteinuria Allergies Penicillins [PENICILLINS] Allergy (Unknown, Verified 02/17/25 09:39) UNKNOWN Medication List - Last Reconciled 02/17/25 by Raj Galvin MD albuterol sulfate 90 mcg/actuation (Ventolin HFA) 2 puffs inhalation QID PRN 30 days duloxetine 60 mg PO DAILY fluticasone furoate-vilanterol 200-25 mcg/dose (Breo Ellipta) 1 inh inhalation DAILY 30 days furosemide 20 mg PO DAILY gabapentin 300 mg PO BID linaclotide (Linzess) 290 mcg PO QAM losartan 25 mg PO DAILY methadone 30 mg PO BEDTIME methadone 50 mg PO DAILY multivitamin 1 tab PO DAILY nicotine 1 patch topical DAILY PRN omeprazole 20 mg PO DAILY rosuvastatin 20 mg PO DAILY tirzepatide (weight loss) (Zepbound) mg subcut QWEEK umeclidinium 62.5 mcg/actuation (Incruse Ellipta) 1 inh inhalation DAILY 30 days HPI Comments Details: Dru is a pleasant 59-year-old man with a history of obesity. He was found to have proteinuria. He was seen by urologist for microhematuria. He refused to have cystoscopy. Imaging studies have been unremarkable. Urine cytology has been negative. 01/09/2023-navigational bronchoscopy with biopsy, de Renuka left upper lobe wedge with completion segmentectomy, mediastinal lymphadenectomy?. He underwent left upper lobe which resection/segmentectomy on 01/09/2023 at [facility]. Pathology revealed invasive adenocarcinoma, tumor size 2 x 1.5 x 1.1 cm, spread through air spaces identified, visceral pleural invasion not identified, margins negative. No regional lymph nodes identified. Pathological stage pT2a pNX. IHC revealed TTF1 positive, P 40 negative. NGS testing revealed PDL1 , TPS 4%, KRAS Exon 2 detected(p.G12R), ALK rearrangement not detected, BRAF mutation not detected, EGFR mutation not detected ROS1 negative. Positive for hepatitis-B core antibody. History of remote infection. He was made referral to GI, he no showed his appointment twice. PET scan performed 02/27/2023 showed postsurgical changes the left hemithorax without any FDG avid disease. No evidence of residual disease or metastatic disease. Patient presented at tumor Board (), as per discussion at tumor board, he has been recommended adjuvant chemotherapy since he has had inadequate surgery and staging of his lung cancer. He received 4 cycles of cis-mille lacs/pemetrexed which he completed on 06/11/2023. Pulmonary emboli, CTA 02/21/23 showed small filling defects in branches of right pulmonary artery no large embolus. He was on anticoagulation until December 2023 for postoperative pulmonary embolism. He continues to smoke cigarettes up to 5 a day. In the past he has smoked a pack and a half. He has obesity with a BMI of 45.6 Semaglutide was started at the end of 03/10/2024 04/08/24: Still smokes; NO new issues ; Takes Ibuprofen 800 mg daily 12/11/24;Overall doing well;Has stopped taking Ibuprofen 02/17/25 Still has back pain- Being evaluated for surgery Not taking NSAIDS anymore Tolerating Losartan [facility] Medical History Pulmonary emboli Osteoarthritis Pleuritic chest pain Post-thoracotomy pain syndrome Asthma-COPD overlap syndrome Lung cancer (~2022) Nicotine dependence, cigarettes, uncomplicated Depression with anxiety Obesity DA (obstructive sleep apnea) Hepatitis C HLD (hyperlipidemia) Methadone maintenance therapy patient History of CVA (cerebrovascular accident) (~2008) Surgical History Hx of appendectomy History of lung surgery History of bilateral hip replacements History of carpal tunnel surgery History of left inguinal hernia repair History of esophagogastroduodenoscopy (EGD) History of colonoscopy Family History Father No problems noted. Mother Family history of high blood pressure Hx of diabetes insipidus Social History Household Members: None Housing: Apartment Do you presently have visiting nurse or other home services: Yes Alcohol intake: former Patient Tobacco Use Status: Current everyday Tobacco user Tobacco use type: Cigarette Cigarette Packs Per Day: 0.5 Cigarettes Per Day: 8 Years Smoked: (onset 13yo, 1ppd x 44yrs, now 3/4ppd, 40pyh) e-Cigarette/Vaping Use: Currently Using service: No Current occupational status: disabled Physical Exam Vital Signs: Last Vital Signs Pulse 76 02/17/25 09:37 BP 142/98 H 02/17/25 09:37 Pulse Ox 95 02/17/25 09:37 Oxygen Delivery Method Room Air 02/17/25 09:37 BMI result Body Mass Index 42.3 Const General: comfortable Nutritional Appearance: well nourished and obese Orientation/consciousness: patient oriented x3 HEENT Head: No normal to inspection Mouth: moist mucous membranes Neck Neck: Yes supple and Yes no JVD Resp Auscultation: clear to auscultation bilaterally and no rales Cardio Jugular venous distension: no JVD Palpation: no palpable S3 and no palpable S4 Heart sounds: no rubs GI Palpation (GI): Soft to palpation and nontender Percussion: No Fluid wave present General: Yes no CVA tenderness Back/Spine/Pelvis Back: no CVA tenderness Skin General skin exam: no rashes or lesions noted Neuro General: patient oriented x3 Extrem General: Yes no pedal edema and No clubbing Results Reviewed Nephrology Results: Hgb 11.9 g/dl (14.0-18.0) L 01/05/25 WBC 6.5 X10*3/uL (4.8-10.8) 01/05/25 Plt Count 217 X10*3/uL (160-400) 01/05/25 Sodium 140 mmol/L (135-145) 11/07/24 Potassium 4.6 mmol/L (3.3-5.1) 11/07/24 Chloride 103 mmol/L (96-108) 11/07/24 Carbon Dioxide 30 mmol/L (22-29) H 11/07/24 BUN 19 mg/dL (9-16) H 01/05/25 Creatinine 1.00 mg/dL (0.5-1.4) 01/05/25 Calcium 9.6 mg/dL (8.4-10.2) 11/07/24 Assessment & Plan Assessment & Plan (1) Proteinuria: Code(s): R80.9 - Proteinuria, unspecified Category: Medical Plan . Dru is a 60-year-old man with a history of obesity and lung cancer. Status post chemotherapy. He was found to have dipstick positive proteinuria and is here for further evaluation. Proteinuria is most likely due to obesity. No significant RBCs in the past. Glomerulonephritis or interstitial disease seem unlikely at this time. Urine Pro: cr is 275 mg Non nephrotic range No monoclonal proteins no monoclonal proteins No absolute indication for biopsy at this time Added Losartan 25 mg DAILY and titrate the dose ( 12/11/24) and toelrating well ( He has stopped using Ibuprofen) I discussed importance of weight loss. He is currently on Zepbound which should help with weight loss. I encouraged him to cut back on the calorie intake and increase his physical activity as well. He has mild CKD. in 2020, baseline creatinine was around 0.6 to 0.7 mg/dL. For the last 1 year serum creatinine has been staying around 1.1-1.3 mg/dL. REcent Cr 1.18 as on 02/13/25 s/p chemotherapy with mille lacs-based chemotherapy. For now we will continue to monitor renal function closely and avoid nephrotoxic agents. Coding Level of Care Code Est Pt Level 4 (47886) Diagnoses Proteinuria R80.9
[2025-02-17 09:49] VITALS: BP 124/70
--- OUTSIDE RECORDS SUMMARY | 2025-02-17 10:44 | XMS_ITS | Clinical Summary ---
Author Organization [facility] Address [address] [place] [address] Phone Care Team Providers Care Hand Fretted Instrument Maker Name Role Phone Morena Forte RN Primary Care Provider Allergies Active Allergy Reactions Criticality Noted Date Comments Penicillins 12/07/2022 Medications duloxetine HCl (CYMBALTA ORAL) Take by mouth. Active fluticasone furoate-vilant Arnulfo (BREO ELLIPTA) 100-25 mcg/dose inhaler Inhale into [...] 1 Tablet by mouth every evening. Active cyclobenzaprin e (FLEXERIL) 10 mg tablet TAKE 1 TABLET BY MOUTH THREE TIMES A DAY NEEDED FOR SPASMS Active linaCLOtide (Linzess) 290 mcg capsule Take 1 capsule (290 mcg total) by mouth 1 (one) time each day. Active losartan (COZAAR) 25 mg tablet Take 1 tablet (25 mg total) by mouth 1 (one) time each day. Active omeprazole (PriLOSEC) [address] capsule Take 1 capsule (20 mg total) by mouth 1 (one) time each day. Do not crush or chew. Active varenicline tartrate (CHANTIX JULIAN) 0.5 mg (11)- 1 mg (42) tablet Take by mouth 2 (two) times a day. Take 0.5 mg by mouth 1 (one) time each day for 3 days (days 1-3), THEN 0.5 mg 2 (two) times a day for 4 days (days 4-7), THEN 1 mg 2 (two) times a day for 12 weeks. Active traZODone (DESYREL) 100 mg tablet Take 1 Tablet by mouth at bedtime as needed. 02/06/20 Discontinued Active Problems Problem Noted Date Diagnosed Date History of lung cancer 2025 Assessment & Plan (02/05/2025 10:53 AM EDT): Mr. Dorsey is a 60-year-old male who had a robotic left upper lobe segmentectomy in December 2022 for a stage Ib adenocarcinoma. He completed adjuvant chemotherapy with Dr. Ulloa at [facility]. The patient's most recent surveillance chest CT scan done on January 23, 2025 shows new groundglass opacities in the right lung. He has a left lower lobe pulmonary nodule at the base measuring 6 mm in size and per my review of the patient's past CT scans dating back to July 2023 this appears stable in size. Given the patient's recent upper respiratory infection the new groundglass opacities in the right lung are likely postinfectious/inflammatory in etiology. He has no active symptoms which require treatment. Will repeat a CT scan in 3 months, April 2025. Will see the patient back in the office after that scan. Leg wound, right 08/19/2024 Overview (12/16/2024): Last Assessment & Plan: No s/sx infection, but slow to heal and has been present for over a month. Exam indicates possible venous stasis issues. Defer to PCP for ongoing evaluation and management of this potential issue. Multiple pulmonary nodules 12/07/2022 Encounters Date Type Department Care Team Description 02/05/2025 10:45 AM EDT Office Visit Thoracic Surgery - [address] [phone] Amara Castorena PA History of lung cancer (Primary Dx); Multiple pulmonary nodules 01/23/2025 5:15 PM EDT - 01/23/2025 11:59 PM EDT Hospital Encounter [facility] CT Scan [address] [place] [address] History of lung cancer Discharge [...] REPAIR PROCEDURE: HISTORICAL HERNIA REPAIR/ING APPENDECTOMY PROCEDURE: KS APPENDECTOMY Medical History Medical History Date Comments Depression with anxiety DX:Depre ssion with anxiety Viral hepatitis C without hepatic coma DX:Viral hepatitis C without hepatic coma H/O: CVA (cerebrovascular accident) DX:H/O: CVA (cerebrovascular accident) HLD (hyperlipidemia) DX:HLD (hyp erlipidemia) 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 ([facility], [facility]) DX:Methadone maintenance th erapy patient ([facility]) Nicotine dependence DX:Nicotine dependence Obesity DX:Obesity Sleep disorder breathing DX:Slee p disorder breathing COPD (chronic obstructive pu lmonary disease) ([facility] V24, [facility]) DX:COPD (chronic o bstructive pulmonary disease) ([facility]) Lung cancer ([facility], [facility]) DX:Lung cancer (HCC) Mild intermittent asthma, uncomplicated DX:Mild intermittent asthma, [...] Sign Reading Time Taken Comments Blood Pressure 144/72 02/05/2025 10:27 AM EDT Pulse 65 02/05/2025 10:27 AM EDT Temperature 36.7 ??C (98.1 ??F) 02/05/2025 10:27 AM E DT Respiratory Rate 16 02/05/2025 10:27 AM EDT Oxygen Saturation 98% 02/05/2025 10:27 AM EDT Inhaled Oxygen Concentration - - Weight 126 kg (277 lb 12.8 oz) 02/05/2025 10:27 AM EDT Height 172.7 cm (5' 8 ) 02/05/2025 10:27 AM EDT Body Mass Index 42.24 02/05/2025 10:27 AM EDT Plan of Treatment Health Maintenance Due Date Last Done Comments Hepatitis A Vaccines (1 of 2 - Risk 2-dose series) 02/05/1984 Zoster Vaccines (1 of 2) [...] 11/20/2023 Social Influencers of Health Screening 11/20/2023 Hepatitis B Vaccines (1 of 3 - Risk 3-dose series) 2025 RSV Immunization Adult Patients (1 - Risk 60-74 years 1-dose series) 2025 Influenza Vaccine (Season Ended) 2025 08/07/2015 Depression Screening 06/30/2025 06/30/2024 Cholesterol Screening (Lipid Panel) 11/07/2029 11/07/2024 DTaP,Tdap,and Td Vaccines (3 - Td or Tdap) 09/14/2030 09/14/2020, 03/12/2015 HIB Vaccines Aged Out No longer eligi [...] Signed Date: 01/25/2025 09:10 ET Workstation ID: [id number] Transcribed By: Self Edit Transcribed Date: 01/25/2025 [...] central low attenuation 01/23/25-1.2 x 0.9 cm (3/193) 06/08/24-1.4 x 0.9 cm Round nodule in [...] Signed Date: 01/25/2025 09:10 ET Workstation ID: [id number] Transcribed By: Self Edit Transcribed Date: 01/25/2025 08:46 ET Smitha Fung NP IMG CT PROCEDURES Final Res ult from Last 3 Months Insurance MEDICAID - [place] Advance Directives Documents on File Type Date Recorded Patient Speech/Language Therapist Expl anation Health Care Decision (hx) 08/04/2018 [...] (hx) 08/04/2018 AD ORR DIRECTIVE Care Teams Hand Fretted Instrument Maker Relationship Specialty Start Date End Date Morena Forte RN [address] [place] [address] PCP - General 03/12/24
--- OUTSIDE RECORDS SUMMARY | 2025-02-17 10:44 | XMS_ITS | Encounter Summary ---
Author Organization [employer] Address [address] [facility] 7t [place] [address] Care Team Providers Care Inclusion Paraeducator Name Role Phone Morena Forte Primary Care Provider [phone] Jeremiah Humphrey Unavailable Unavailable Raj Galvin MD Unavailable [phone] Ely Mesa Unavailable Reason for Visit * Reason Onset Date Comments pt1 12/20/2022 Encounter Details Date Type Department Care Team (Late st Contact Info) Description 12/20/2022 Telephone [facility] MEDICINE [address] [place] [address] Morena Forte FNP [address] [place], [place] [phone] pt1 Social History Tobacco Use Types Packs/Day [...] / denial letter via mail. PT-1 Request [id number] Pending - [facility] [address] [facility] [phone] * Telephone Encounter - Dami Nam - 12/20/2022 1:54 PM EST Tc from pt requesting pt1 Location: [facility] [address] [address], [place] [address] Specialty: left lung surgery Time:9: 30 am, 9 am, 6 am Date:01/02/23, 01/08/23, 01/09/23 Head Chef: no wheelchair accessible : n/a Please contact pt at [phone] documented in this encounter Plan of Treatment Not on file documented as of this encounter Visit Diagnoses Not on filedocumented in this encounter Care Teams Inclusion Paraeducator Relationship Specialty Start Date End Date Morena Forte FNP [address] [place] [address] PCP - General Family Medicine 09/27/22 Jeremiah Humphrey Community Health Worker 04/18/24 Raj Galvin MD 100 [facility] [address] [place] [address] Nephrology 08/25/24 Ely Mesa [address] [place] [address] Thoracic Surgery 08/25/24 documented as of this encounter
--- OUTSIDE RECORDS SUMMARY | 2025-02-17 10:44 | XMS_ITS | Encounter Summary ---
Author Organization [employer] Address [address] [facility] 7t [place] [address] Care Team Providers Care Bone Plant Supervisor Name Role Phone Morena Forte Primary Care Provider [phone] Jeremaih Humphrey Unavailable Unavailable Raj Galvin MD Unavailable [phone] E[address] Unavailable Reason for Visit * Reason Onset Date Comments pt1 12/19/2022 Encounter Details Date Type Department Care Team (Late st Contact Info) Description 12/19/2022 Telephone [facility] MEDICINE [address] [place] [address] Morena Forte FNP [address] [place], [place] [phone] pt1 Social History Tobacco Use Types Packs/Day [...] being picked up. Please contact pt at [phone] documented in this encounter Plan of Treatment Not on file documented as of this encounter Visit Diagnoses Not on filedocumented in this encounter Care Teams Bone Plant Supervisor Relationship Specialty Start Date End Date Morena Forte FNP [address] [place] [address] PCP - General Family Medicine 09/27/22 Jeremiah Humphrey Community Health Worker 04/18/24 Raj Galvin MD [address] [facility] [address] [place] [address] Nephrology 08/25/24 Ely Mesa [address] [place] [address] Thoracic Surgery 08/25/24 documented as of this encounter
--- OUTSIDE RECORDS SUMMARY | 2025-02-17 10:44 | XMS_ITS | Encounter Summary ---
Author Organization [employer] Address [address] [facility] [address] 7t [place] [address] Care Team Providers Care Oyster Culler Name Role Phone Morena Forte Primary Care Provider [phone] Jeremiah Humphrey Unavailable Unavailable Raj Galvin MD Unavailable [phone] Ely Mesa Unavailable Encounter Details Date Type Department Care Team (Late st Contact Info) Description 01/26/2025 Orders Only [facility] MED & PEDS [address] [place] [address] Provider, MD Kelvin Social History Tobacco Use [...] the past 12 months, has t he [employer], gas, oil or water [employer] threatened to shut off services in your [...] EDT Narrative 01/28/2025 1:03 PM EDT ? [place] [facility] ?[address] ?[place] [address] ? CT Scan Report ? Signed ? Patient: Willian,Dru A ?MR#: [id number] ?? 1 ? : 1965 ?Acct:[id number] ? Age/Sex: 59 / M ?ADM Date: 01/28/25 ? Loc: HO.CT ? Attending Dr: Linda Ulloa MD ? Ordering Physician: Linda Ulloa MD ?? Date of Service: 01/28/25 ?? Procedure(s): CT chest w IV con ?? Accession Number(s): [id number] ? cc: Linda Ulloa MD; Morena Forte AUTOMATION MANAGER ? Report Number: ?? [id number]: Total DLP = ??220.00 mGy-cm ?? EXAMINATION: [...] DD/ 1149 ? TD/TT: 01/28/25 1200 ? It Field Technician: ? Procedure Note Yanely Jimenez - 01/28/[address] [place] [address] [address] Scan Report Signed Patient: Dru Dorsey AMR#: [id number] 1 : 1965Acct:[id number] Age/Sex: 59 / MADM Date: 01/28/25 Loc: HO.CT Attending Dr: Linda Ulloa MD Ordering Physician: Linda Ulloa MD Date of Service: 01/28/25 Procedure(s): CT chest w IV con Accession Number(s): [id number] cc: Linda Ulloa MD; Morena Forte AUTOMATION MANAGER Report Number: [id number]: Total DLP = 220.00 mGy-cm EXAMINATION: CT [...] 01/28/25 1301 DD/ 1149 TD/TT: 01/28/25 1200 It Field Technician: [facility] External Provider IMG CT PROCEDURES Final [...] documented as of this encounter Care Teams Oyster Culler Relationship Specialty Start Date End Date Morena Forte FNP [address] [place] [address] PCP - General Family Medicine 09/27/22 Jeremiah Humphrey Community Health Worker 04/18/24 Raj Galvin MD [address] [place] [phone] Nephrology 08/25/24 Ely Mesa [address] [place] [address] Thoracic Surgery 08/25/24 documented as of this encounter
--- OUTSIDE RECORDS SUMMARY | 2025-02-17 10:44 | XMS_ITS | Encounter Summary ---
Author Organization [employer] Address [address] [facility] 7t [place] [address] Care Team Providers Care Database Tester Name Role Phone Morena Forte Primary Care Provider [phone] Jeremiah Humphrey Unavailable Unavailable Raj Galvin MD Unavailable [phone] E[address] Mesa Unavailable Reason for Visit * Reason Onset Date Comments PT1 05/29/2023 Encounter Details Date Type Department Care Team (Late st Contact Info) Description 05/29/2023 Telephone [facility] MEDICINE [address] [place] [address] Morena Forte FNP [address] [place], [place] [phone] PT1 Social History Tobacco Use Types Packs/Day [...] Time: 11 am Visits: Address: [place] [address] Facility: Wheel Chair: n/a Radiology Physician Needed: no *Patient states PCP needs to request for patient to only get picked up in a van due to his hip and unable to fit comfortably in a sedan. Patient states prior PCP had one in place but it has . PT1 Address verified Date: 06/19/23 Time: 11:30 am Visits: Address: [place] [address] Facility: Wheel Chair: n/a Radiology Physician Needed: no documented in this encounter Plan of Treatment Not on file documented as of this encounter Visit Diagnoses Not on filedocumented in this encounter Additional Health Concerns Assessment Noted Time PHQ-9 Depression Total Score: 16 023 9:44 AM EDT documented as of this encounter Care Teams Database Tester Relationship Specialty Start Date End Date Morena Forte FNP [address] [place] [address] PCP - General Family Medicine 09/27/22 Jeremiah Humphrey Community Health Worker 04/18/24 Raj Galvin MD [address] [place] [phone] Nephrology 08/25/24 Ely Mesa [address] [place] [phone] Thoracic Surgery 08/25/24 documented as of this encounter
--- OUTSIDE RECORDS SUMMARY | 2025-02-17 10:44 | XMS_ITS | Encounter Summary ---
Author Organization [employer] Address [address] [facility] 7t [place] [address] Care Team Providers Care Sap Basis Consultant Name Role Phone Morena Forte Primary Care Provider [phone] Jeremiah Humphrey Unavailable Unavailable Raj Galvin MD Unavailable [phone] Ely Mesa Unavailable Encounter Details Date Type Department Care Team (Late st Contact Info) Description 02/15/2023 Telephone [facility] MEDICINE [address] [place] [address] Morena Forte FNP [address] [place], [place] [phone] Social History Tobacco Use Types Packs/Day Years [...] on filedocumented in this encounter Care Teams Sap Basis Consultant Relationship Specialty Start Date End Date Morena Forte FNP [address] [place] [address] PCP - General Family Medicine 09/27/22 Jeremiah Humphrey Community Health Worker 04/18/24 Raj Galvin MD [address] [phone] Nephrology 08/25/24 Ely Mesa [address] [place] [phone] Thoracic Surgery 08/25/24 documented as of this encounter
--- OUTSIDE RECORDS SUMMARY | 2025-02-17 10:44 | XMS_ITS | Encounter Summary ---
Author Organization [employer] Address [address] [facility] 7t [place] [address] Care Team Providers Care Supervisor Slitting And Shipping Name Role Phone Morena Forte Primary Care Provider [phone] Jeremiah Humphrey Unavailable Unavailable Raj Galvin MD Unavailable [phone] Ely Mesa Unavailable Reason for Visit * Reason Comments Med Refill Encounter Details Date Type Department Care Team ([facility] st Contact Info) Description 04/22/2024 Refill [facility] MED & PEDS [address] [place], [place] [phone] Morena Forte FNP [address] [place], [place] [phone] Social History Tobacco Use Types Packs/Day Years [...] to the pharmacy. CM reached out to [place] [facility], spoke with Dulce who states pt [...] provided on [facility] located in [facility]. Patient provided with after-hours line for [facility], , which offer nighttime triage service and option to transfer to shoes salesperson provider if needed. Patient verbalizes understanding, and able to repeat back to telegraphic typewriter operator chief. A follow up call will be placed [...] documented as of this encounter Care Teams Supervisor Slitting And Shipping Relationship Specialty Start Date End Date Morena Forte FNP [address] [place] [address] PCP - General Family Medicine 09/27/22 Jeremiah Humphrey Community Health Worker 04/18/24 Raj Galvin MD [address] [phone] Nephrology 08/25/24 Ely Mesa [address] [place] [address] [phone] Thoracic Surgery 08/25/24 documented as of this encounter
--- OUTSIDE RECORDS SUMMARY | 2025-02-17 10:44 | XMS_ITS | Encounter Summary ---
Author Organization [employer] Address [address] [facility] 7t [place] [address] Care Team Providers Care Software Tools Engineer Name Role Phone Morena Forte Primary Care Provider [phone] Jeremiah Humphrey Unavailable Unavailable Raj Galvin MD Unavailable [phone] Ely Mesa Unavailable Reason for Visit * Reason Onset Date Comments PT1 05/28/2023 Encounter Details Date Type Department Care Team (Late st Contact Info) Description 05/28/2023 Telephone [facility] MEDICINE [address] [place] [address] Morena Forte FNP [address] [place], [place] [phone] PT1 Social History Tobacco Use Types Packs/Day [...] be a van transportation not a car Location:[address] [place] [phone] Specialty: Podiatry Date&Time:N/a Audit Practice Intern:No Pt will be using a cane PT1 Date: 06/01/2023 Time: 2:15 pm address: [address] [facility] specialty: Pulmonogists supervisor carpenters: N/A Wheelchair:N/A documented in this encounter Plan of Treatment Not on file documented as of this encounter Visit Diagnoses Not on filedocumented in this encounter Additional Health Concerns Assessment Noted Time PHQ-9 Depression Total Score: 16 023 9:44 AM EDT documented as of this encounter Care Teams Software Tools Engineer Relationship Specialty Start Date End Date Morena Forte FNP [address] [place] [address] PCP - General Family Medicine 09/27/22 Jeremiah Humphrey Community Health Worker 04/18/24 Raj Galvin MD [address] [phone] Nephrology 08/25/24 Ely Mesa [address] [place] [phone] Thoracic Surgery 08/25/24 documented as of this encounter
--- OUTSIDE RECORDS SUMMARY | 2025-02-17 10:44 | XMS_ITS | Encounter Summary ---
Author Organization [employer] [facility] Address [address] [facility] 7t [place] [address] Care Team Providers Care Studio Technician Name Role Phone Morena Forte Primary Care Provider [phone] Jeremiah Humphrey Unavailable Unavailable Raj Galvin MD Unavailable [phone] Ely Mesa Unavailable Encounter Details Date Type Department Care Team (Late st Contact Info) Description 01/18/2023 Telephone [facility] MEDICINE [address] [place] [address] Morena Forte FNP [address] [place], [place] [phone] Social History Tobacco Use Types Packs/Day Years [...] on filedocumented in this encounter Care Teams Studio Technician Relationship Specialty Start Date End Date Morena Forte FNP [address] [place] [address] PCP - General Family Medicine 09/27/22 Jeremiah Humphrey Community Health Worker 04/18/24 Raj Galvin MD [address] [address] Nephrology 08/25/24 Ely Mesa [address] [place] [address] [phone] Thoracic Surgery 08/25/24 documented as of this encounter
--- OUTSIDE RECORDS SUMMARY | 2025-02-17 10:44 | XMS_ITS | Encounter Summary ---
Author Organization [employer] Address [address] [facility] 7t [place] [address] Care Team Providers Care Compounder Helper Name Role Phone Morena Forte Primary Care Provider [phone] Jeremiah Humphrey Unavailable Unavailable Raj Galvin MD Unavailable [phone] Ely Mesa Unavailable Reason for Visit * Reason Comments Med Refill Encounter Details Date Type Department Care Team ([facility] st Contact Info) Description 04/03/2024 Refill [facility] MED & PEDS [address] [place] [address] Morena Forte FNP [address] [place], [place] [phone] Severe obesity (CMS/HCC) Social History Tobacco Use [...] documented as of this encounter Care Teams Compounder Helper Relationship Specialty Start Date End Date Morena Forte FNP [address] [place] [phone] PCP - General Family Medicine 09/27/22 Jeremiah Humphrey Community Health Worker 04/18/24 Raj Galvin MD 100 [facility] [address] [place] [phone] Nephrology 08/25/24 Ely Mesa [address] [place] [phone] Thoracic Surgery 08/25/24 documented as of this encounter
--- OUTSIDE RECORDS SUMMARY | 2025-02-17 10:44 | XMS_ITS | Clinical Summary ---
Author Organization [employer] Address [address] [facility] 7t [place] [address] Care Team Providers Care Top Stop Attacher Name Role Phone Morena Forte Primary Care Provider [phone] Jeremiah Humphrey Unavailable Unavailable Raj Galvin MD Unavailable [phone] Ely Mesa Unavailable Allergies Active Allergy [...] BY MOUTH ONCE DAILY 3 Active Fluticasone Furoate-Vilante rol (BREO ELLIPTA IN) Inhale. Through Pulm Active lidocaine (Lidoderm) 5 % patchIndication s:Pain APPLY A PATCH TO SKIN DAILY IN [...] sleep. 1 to 2 tablets Active Umeclidinium [place] (Incruse Ellipta) 62.5 MCG/ACT aerosol powder Inhale Once per day. 1 inhalation Active linaCLOtide (Linzess) 290 MCG capsule Take 1 capsule by mouth before breakfast. Do not crush or chew. Active furosemide (Lasix) 20 MG tabletIndicatio ns:Lower extremity edema TAKE 1 TABLET BY MOUTH EVERY MORNING , MAY USE 2ND DOSE NEEDED FOR SWELLING 90 tablet 1 5 Active Multiple Vitamin (Daily-Anu) tablet TAKE 1 TABLET BY MOUTH DAILY IN THE MORNING WITH FOOD 90 tablet 3 5 Active Tirzepatide-Edwar ght Management (Zepbound) 5 MG/0.5ML solution auto-injectorIn dications:Sever e obesity (CMS/HCC) Inject 0.5 mL (5 mg) under the skin 1 (one) time per week. 2 mL 1 5 02/09/20 25 Active Problems Problem Noted Date Diagnosed Date Pulmonary nodule, left 08/25/2024 Overview (08/25/2024): - Followed by Dr. Mesa - CT Chest 08/08/24: stable 4 mm nodule LLL Microscopic hematuria 03/11/2024 Overview (03/11/2024): Following with [facility] - Dr. Guerrero 02/21/24: US renal bilat unremarkable Primary osteoarthritis of left knee 12/28/2023 Assessment & Plan (08/31/2024 8:51 PM EST): S/p left knee TKA with Dr. Eagle (SULAIMAN) at [facility] in May 2024 Previously doing well [...] knee TKA with Dr. Eagle (SULAIMAN) at [facility] in May 2024 Recovery going well, continues with weekly physical therapy sessions and pain management through Ortho Assessment & Plan (03/11/2024 11:39 AM EDT): Plan for left knee TKA with Dr. Eagle through [facility], cardiac clearance completed Nov 2023. Assessment & Plan (12/28/2023 8:58 AM EST): Plan for left knee TKA with Dr. Eagle through [facility], cardiac clearance completed. Appears surgery cancelled last minute. Pending [facility] and [facility] information from [facility] Healthcare maintenance 11/11/2023 Overview (03/10/2024): -Colonoscopy: followed by [facility] GI - booked for upper endoscopy and colonoscopy per consult note Jul 2023 -Lung CA: (+) hx lung CA - CT chest January 2024 Lung RADS 1, due 1 year Persistent proteinuria 11/11/2023 Overview (08/25/2024): Following with [facility] Nephrology - Dr. Raj Galvin - for proteinuria and microhematuria Imaging studies and urine cytology WNL Suspect proteinuria 2/2 obesity and lung CA Assessment & Plan (03/10/2024 7:25 AM EDT): Followed by [facility] for proteinuria and hematuira. 02/21/24: US [...] Referrals: PS&S sent 09/06/23 (PT1 requested 11/11/23) [facility] sent 03/11/24 (w/ PT1) [...] overlap syndrome 06/06/2023 Overview (07/20/2024): Following with [facility] Pulm - Dr. Cayden Diazo and Melina Yancey CT scans every 6 [...] Call office w/ any symptoms. Previous history: Wegovradhika initiated February 2024 Plan to continue with lifestyle interventions such as well balanced nutrition, diet rich in fruits and vegetables, and routine physical activity as able. Assessment & Plan (08/25/2024 5:29 PM EST): Doing well with medication, poncho med SE Lost 7.3% loss of body [...] time, interested in having meds sent to [facility] Assessment & Plan (05/20/2023 12:19 PM EDT): Following with Dr. Kendrick, current regimen: ?? Duloxetine 60 mg qam ?? Trazodone 50 mg at bedtime ?? Bupropion XL 300 mg qam Declines interest in Med Box at this time, interested in having meds sent to [facility] pharmacy Assessment & Plan (04/11/2023 2:16 PM EDT): ?? Following with Dr. Kendrick ?? Message sent to her office to discuss returning to previous med regimen as had worked better for pt. ?? Requested refills sent to [facility] pharmacy as pt planning to transfer prescriptions here to start Med Box. Malignant neoplasm of upper lobe of left lung Overview (04/11/2023): ?? 1.1 x 1.2cm lesion in PAXTON noted on LDCT 10/27/22 (hx of cigarette smoking) ?? S/p PAXTON segmentectomy December 2022 at - resected nodular density revealed invasive adenocarcinoma, tumor size 2 x 1.5 x 1.1 cm ?? Currently s/p surgery, initiated chemotherapy 04/09/23 ?? Followed by [facility] Heme/Onc: Dr. Ulloa, and [facility] Pulm - Dr. Rodarte Assessment & Plan (04/11/2023 2:13 PM EDT): ?? DME request for Ensure ([place] & Vanilla flavor BID) on 04/11/23 Assessment & Plan (04/09/2023 7:38 PM EDT): ?? 1.1 x 1.2cm lesion in PAXTON noted on LDCT 10/27/22 (hx of cigarette smoking) ?? S/p PAXTON segmentectomy December 2022 at - resected nodular density revealed invasive adenocarcinoma, tumor size 2 x 1.5 x 1.1 cm ?? Currently s/p surgery, with the plan to start chemotherapy ?? Followed by [facility] Heme/Onc: Dr. Ulloa, and [facility] Pulm - Dr. Rodarte Assessment & Plan (03/19/2023 6:18 PM EDT): ?? 1.1 x 1.2cm lesion in PAXTON noted on LDCT 10/27/22 (hx of cigarette smoking) ?? S/p PAXTON segmentectomy December 2022 at - resected nodular density revealed invasive adenocarcinoma, tumor size 2 x 1.5 x 1.1 cm ?? Currently s/p surgery, with the plan to start chemotherapy ?? Followed by [facility] Heme/Onc: Dr. Ulloa, and [facility] Pulm - Dr. Rodarte Pulmonary emboli 03/19/2023 Assessment & Plan (03/11/2024 11:21 AM EDT): Identified during ED visit 02/22/23 Bilateral multiple pulmonary emboli (primarily left) Eliquis managed by [facility] Heme/Onc - discontinued December 2023 Assessment & Plan (05/14/2023 10:09 AM EDT): ?? Identified during ED visit 02/22/23 ?? Bilateral multiple pulmonary emboli (primarily left) ?? Discharged on Eliquis, further rx to be managed by [facility] Heme/Onc (although last prescription sent in through PCP office) Assessment & Plan (04/09/2023 7:48 PM EDT): ?? Identified during ED visit 02/22/23 ?? Bilateral multiple pulmonary emboli (primarily left) ?? Discharged on Eliquis, further rx to be managed by [facility] Heme/Onc Assessment & Plan (03/19/2023 6:21 PM EDT): ?? Identified during ED visit 02/22/23 ?? Bilateral multiple pulmonary emboli (primarily left) ?? Discharged on Eliquis, further rx to be managed by [facility] Heme/Onc ?? ED precautions reviewed Anomalous origin of right coronary artery 2022 Overview (01/11/2025): Following with [facility] cardiology-Dr. Jaime Consult December 2024: Hx of SOB that led to echo, stress test, and coronary CTA. It revealed anomalous coronary artery. He was referred to the adult congenital heart disease clinic at [facility] but was not recommended any interventions. Prior [...] BP elevated in office Initially referred to [facility] Cards, subsequently referred to [facility] adult congential heart disease clinic Referral back to [facility] cardiology placed 03/19/23 due to elevated BP readings Continues with furosemide, may consider addition of second agent if home BP readings elevated as well Referral to Cards re-placed on 12/28/23 ED/urgent care precautions Assessment & Plan (06/10/2023 8:26 AM EDT): ?? BP elevated in office ?? Initially referred to [facility] Cards, subsequently referred to [facility] adult congential heart disease clinic ?? Referral back to [facility] cardiology placed 03/19/23 due to elevated BP readings ?? Continues with furosemide, may consider addition of second agent if home BP readings elevated as well Assessment & Plan (03/19/2023 6:31 PM EDT): ?? Initially referred to [facility] Cards, subsequently referred to [facility] adult congential heart disease clinic ?? Referral back to [facility] cardiology placed 03/19/23 due to elevated BP readings ?? Continues with furosemide 20mg daily History of lobectomy of lung 02/11/2023 Overview (02/11/2023): -Left upper lobectomy at December 2022 Tobacco use 12/11/2022 Overview (03/11/2024): [...] as pharmacomtherapy, [facility] smoking cessation group, and [facility] pharmacy smoking cessation clinic -Interested in NRT patches as monotherapy, sent to pharmacy Assessment & Plan (11/11/2023 12:57 PM EST): -Continues with smoking cessation efforts, currently approx 10 cigg/day -Encouraged smoking cessation resources such as pharmacomtherapy, [facility] smoking cessation group, and [facility] pharmacy smoking cessation clinic -Interested in NRT patches as monotherapy, sent to pharmacy Assessment & Plan (09/06/2023 7:06 PM EST): -Continues with smoking cessation efforts, currently approx 6 cigg/day -Interested in Chantix, sent to pharmacy Assessment & Plan (06/10/2023 8:23 AM EDT): -Continues with smoking cessation efforts, currently approx 8 cigg/day -Interested in Chantix, spoke with [facility] pharmacy and verbal order given for starter pack of varenicline Assessment & Plan (12/11/2022 8:31 AM EST): -Continues with smoking cessation efforts, down to 6-7 cigg/day -Discussed smoking cessation resources available at [facility] such as smoking cessation clinic [...] Encounters Date Type Department Care Team Description 2025 Refill [facility] [address] [place] [address] Morena Forte FNP Lower extremity edema 01/26/2025 Orders Only [facility] [address] [place] [address] Provider, MD Kelvin 01/19/2025 Telephone [facility] [address] [place] [address] Morena Forte FNP 01/16/2025 Telephone [facility] [address] [place] [address] Morena Forte FNP Prior Authorization 01/14/2025 Telephone [facility] [address] [place] [phone] Morena Forte FNP Durable Medical Equipment 01/14/2025 Population Health Risk Score [facility] Department [address] [place] [address] [phone] Provider, Population Health Generic 01/09/2025 10:00 AM EDT Office Visit [facility] [address] [place] [address] Morena Forte FNP Anomalous origin of right coronary artery (Primary Dx); Severe obesity (CMS/HCC); Tobacco use; Cellulitis of left lower extremity 01/09/2025 Travel 01/08/2025 Telephone [facility] [address] [place] [address] Morena Forte FNP Chart Prep 01/02/2025 Patient Outreach [facility] [address] [place] [address] Morena Forte FNP Pre-visit Planning (SDOH was already completed) 01/01/2025 Patient Outreach [facility] [address] [place] [address] Morena Forte FNP Care Coordination (CHW outreach for SDOH PT-1 - LVM ) 01/01/2025 Telephone [facility] [address] [place] [phone] Morena Forte FNP PT1 01/01/2025 Telephone [facility] [address] [place] [address] Morena Forte FNP Prior Authorization 01/01/2025 Refill [facility] [address] [place] [address] Morena Forte FNP Severe obesity (CMS/HCC) 12/29/2024 Refill [facility] [address] [place] [address] Morena Forte FNP Severe obesity (CMS/HCC) 12/16/2024 Telephone [facility] [address] [place] [address] Morena Forte FNP 12/10/2024 Refill [facility] [address] [place] [address] Morena Forte FNP 11/26/2024 Patient Outreach [facility] [address] [place] [address] Morena Forte FNP Care Coordination (CHW outreach for SDOH PT-1 and food needs-referral completed /) 11/26/2024 Telephone [facility] [address] [place] [address] Morena Forte FNP PT1 11/25/2024 Refill [facility] [address] [place] [address] Morena Forte FNP 11/19/2024 Patient Outreach [facility] [address] [place] [address] Morena Forte FNP Care Coordination (Outreach ) from Last 3 Months Immunizations Name Administration [...] (2 of 2 - PCV) 07/29/2022 07/29/2021 Hepatitis B Vaccines (1 of 3 - Risk 3-dose series) 2025 RSV Patients and Patients Aged 60 years or older (1 - Risk 60-74 years 1-dose series) 2025 Influenza Vaccine (#1) 2025 08/07/2015 Postp oned [...] T d or Tdap) 09/14/2030 09/14/2020, 03/12/2015 HIV Screening Completed 12/05/2019 HIB Vaccines Aged [...] WO CONTRAST Routine 01/23/2025 12:33 PM EDT HEMOGLOBIN A1C Routine 11/07/2024 4:09 PM EST Severe obesity (CMS/HCC) LIPID PANEL, STANDARD Routine 11/07/2024 4:09 PM EST Severe obesity (CMS/HCC) WINDY HISTORICAL HIV AB/AG Routine 12/05/2019 1:56 PM EST from Last 3 Months or Most Recently Relevant to Health Maintenance Results * CT Chest w/ Contrast (01/28/2025 11:49 AM EDT) Anatomical Region Laterality Modality Body, Chest Computed Tomogra phy 01/28/2025 11:4 9 AM EDT Narrative 01/28/2025 1:03 PM EDT ? [facility] ?[address] ?[place] [address] ? CT Scan Report ? Signed ? Patient: Willian,Dru A ?MR#: [id number] ?? 1 ? : 1965 ?Acct:[id number] ? Age/Sex: 59 / M ?ADM Date: 01/28/25 ? Loc: HO.CT ? Attending Dr: Linda Ulloa MD ? Ordering Physician: Linda Ulloa MD ?? Date of Service: 01/28/25 ?? Procedure(s): CT chest w IV con ?? Accession Number(s): [id number] ? cc: Linda Ulloa MD; Morena Forte PORTFOLIO ARCHITECT ? Report Number: ?? [id number]: Total DLP = ??220.00 mGy-cm ?? EXAMINATION: [...] DD/ 1149 ? TD/TT: 01/28/25 1200 ? Director Of Professional Services: ? Procedure Note Yanely Jimenez - 01/28/[address] [address] [address] Scan Report Signed Patient: Dru Dorsey AMR#: [id number] 1 : 1965Acct:[id number] Age/Sex: 59 / MADM Date: 01/28/25 Loc: HO.CT Attending Dr: Linda Ulloa MD Ordering Physician: Linda Ulloa MD Date of Service: 01/28/25 Procedure(s): CT chest w IV con Accession Number(s): [id number] cc: Linda Ulloa MD; Morena Forte PORTFOLIO ARCHITECT Report Number: [id number]: Total DLP = 220.00 mGy-cm EXAMINATION: CT [...] 01/28/25 1301 DD/ 1149 TD/TT: 01/28/25 1200 Director Of Professional Services: [facility] External Provider IMG CT PROCEDURES Final Result * CT Chest w/o Contrast (01/23/2025 12:33 PM EDT) Anatomical Region Laterality Modality Body, Chest Computed Tomogra phy Historical Provider IMLo CT PROCEDURES Final R esult * Hemoglobin A1c (11/07/2024 4:09 PM EST) Hemoglobin A1c 5.7 <6.0 % [facility] Comment:Hemoglobin A1C Refer ence Range Adults: 4.8 - 6.0 % Non diabetic: < 6.0 % Goal: < 7.0 %Additional Action Suggested: > 8.0 %Note: Hemoglobin A1c results are invalid for patients with abnormal amounts of HbF. Blood transfusions may impact the HbA1c concentration in the patient sample. Estimated Average Glucose 117 mg/dL [facility] Comment:eAG = Estimated ave rage glucose which is %A1C expressed asaverage glucose, using the formula of the N6H-[place]bs[place] Glucose study (ADAG), Diabetes Care, Vol.31,#8,May. 2007 Blood Venous blood specimen / Unknown 11/07/2024 4:09 PM EST 11/07/2024 5:50 PM EST us Morena Forte [facility] BLOOD ORDERABLES Final Res ult [facility] [address] [place] [address] [phone] * Lipid Panel, Standard (11/07/2024 4:09 PM EST) Triglycerides 74 <150 mg/dL [facility] Comment:Desirable Triglyceri de: less than 150 mg/dLBorderline High Triglyceride 150-199 mg/dLHigh Triglyceride: 200-499 mg/dLVery High Triglyceride: greater than or equal to 5OO mg/dL Cholesterol 150 <200 mg/dL [facility] Comment:Desirable Cholestero l: less than 200 mg/dLBorderline High Cholesterol: 200-239 mg/dLHigh Cholesterol: greater than 239 mg/dL LDL Cholesterol Calculated 65 <100 mg/dL [facility] Comment:Desirable LDL: less than 100 mg/dLNear Optimal/Above Optimal LDL: 110- 129 mg/dLBorderline High LDL: 130-159 mg/dLHigh LDL: 160-189 mg/dLVery High LDL: greater than or equal to 190 mg/dL HDL Cholesterol 71 >40 mg/dL [facility] Comment:Desirable HDL: great er than 40 mg/dL Note: This HDL assay may give artificially low results in patients with liver disease. Blood Venous blood specimen / Unknown 11/07/2024 4:09 PM EST 11/07/2024 5:50 PM EST Morena Forte [facility] BLOOD ORDERABLES Final Res ult [facility] [address] [place] [address] [phone] * HIV AB/AG (12/05/2019 1:56 PM EST) [facility] HIV AG/AB NONREACTIVE NR FOUNDAT[facility] ON LAB [...] detection of this assay. ?? [employer] HIV Ag/Ab Combo assay result and supplemental assay results should be interpreted in conjunction with the patient's clinical presentation, history and other laboratory results. ??If the results are inconsistent with clinical evidence, additional testing is suggested to confirm the result. 12/05/2019 1:56 PM EST us Yves Martin MD HISTORICAL/NON ORDERABLE LABS Fi nal Result Performing Organization Address City/[facility] Co de Phone Number [facility] [address] from Last 3 Months or Most Recently Relevant to Health Maintenance Insurance [facility] Care Teams Top Stop Attacher Relationship Specialty Start Date End Date Morena Forte FNP [address] [place] [address] PCP - General Family Medicine 09/27/22 Jeremiah Humphrey Community Health Worker 04/18/24 Raj Galvin MD [address] [place] [phone] Nephrology 08/25/24 Ely Mesa [address] [place] [address] Thoracic Surgery 08/25/24
--- OUTSIDE RECORDS SUMMARY | 2025-02-17 10:44 | XMS_ITS | Encounter Summary ---
Author Organization [employer] Address [address] [facility] 7t [place] [address] Care Team Providers Care Marine Operations Coordinator Name Role Phone Morena Forte Primary Care Provider [phone] Jeremiah Humphrey Unavailable Unavailable Raj Galvin MD Unavailable [phone] Ely Mesa Unavailable Reason for Visit * Reason Onset Date Comments PT1 08/03/2023 Encounter Details Date Type Department Care Team ([facility] st Contact Info) Description 08/03/2023 Telephone [facility] [address] [place], [place] [phone] Morena Forte FNP [address] [place], [place] [phone] PT1 Social History Tobacco Use Types Packs/Day [...] Time: 2 PM Visits: n/a Address: [address] [place] [address] Facility: [facility] primary care Wheel Chair: no Online Advertising Analyst Needed: no edge inker uppers location confirmed: [address] [place] [address] documented in this encounter Plan of Treatment [...] documented as of this encounter Care Teams Marine Operations Coordinator Relationship Specialty Start Date End Date Morena Forte FNP [address] [place] [address] PCP - General Family Medicine 09/27/22 Jeremiah Humphrey Community Health Worker 04/18/24 Raj Galvin MD [address] [phone] Nephrology 08/25/24 Ely Mesa [address] [place] [address] Thoracic Surgery 08/25/24 documented as of this encounter
--- OUTSIDE RECORDS SUMMARY | 2025-02-17 10:44 | XMS_ITS | Encounter Summary ---
Author Organization [employer] Address [address] [facility] 7t [place] [address] Care Team Providers Care Spice Fumigator Name Role Phone Morena Forte Primary Care Provider [phone] Jeremiah Humphrey Unavailable Unavailable Raj Galvin MD Unavailable [phone] E[address] Mesa Unavailable Reason for Visit * Reason Comments Med Refill Encounter Details Date Type Department Care Team (Late st Contact Info) Description 05/13/[address] [facility] [address] [place] [address] Morena Forte FNP [address] [place], [place] [phone] Social History Tobacco Use Types Packs/Day Years [...] documented as of this encounter Care Teams Spice Fumigator Relationship Specialty Start Date End Date Morena Forte FNP [address] [place] [address] PCP - General Family Medicine 09/27/22 Jeremiah Humphrey Community Health Worker 04/18/24 Raj Galvin MD [address] [phone] Nephrology 08/25/24 Ely Mesa [address] [place] [phone] Thoracic Surgery 08/25/24 documented as of this encounter
--- OUTSIDE RECORDS SUMMARY | 2025-02-17 10:44 | XMS_ITS | Encounter Summary ---
Author Organization [facility] Address [address] [facility] 7t [place] [address] Care Team Providers Care Chemical Process Analyst Name Role Phone Morena Forte Primary Care Provider [phone] Jeremiah Humphrey Unavailable Unavailable Raj Galvin MD Unavailable [phone] Ely Mesa Unavailable Reason for Visit * Reason Onset Date Comments PT1 06/06/2023 Encounter Details Date Type Department Care Team (Late st Contact Info) Description 06/06/2023 Telephone [facility] [address] [place] [address] Morena Forte FNP [address] [place], [place] [phone] PT1 Social History Tobacco Use Types Packs/Day [...] Time: 3:00 PM address: [address], [place] [address] specialty: eye care # visits: n/a sand mixer operator: no Wheelchair: no documented in this encounter [...] documented as of this encounter Care Teams Chemical Process Analyst Relationship Specialty Start Date End Date Morena Forte FNP [address] [place] [address] PCP - General Family Medicine 09/27/22 Jeremiah Humphrey Community Health Worker 04/18/24 Raj Galvin MD [address] [place] [phone] Nephrology 08/25/24 Ely Mesa [address] [place] [phone] Thoracic Surgery 08/25/24 documented as of this encounter
--- OUTSIDE RECORDS SUMMARY | 2025-02-17 10:45 | XMS_ITS | Encounter Summary ---
Author Organization [employer] Address 75 [facility] 7t [place] [address] Care Team Providers Care Social Worker Aide Name Role Phone Morena Forte Primary Care Provider [phone] Jeremiah Humphrey Unavailable Unavailable Raj Galvin MD Unavailable [phone] [place] Unavailable Reason for Visit * Reason Onset Date Comments PT1 02/26/2023 Encounter Details Date Type Department Care Team (Late st Contact Info) Description 02/26/2023 Telephone [facility] MEDICINE 230 [place] [address] Morena Forte FNP [address] [place], [place] [phone] PT1 Social History Tobacco Use Types Packs/Day [...] / denial letter via mail. PT-1 Request [id number] Pending - [facility] 230 [facility] [address] PT-1 Request [id number] Pending - Service [facility] [address] [facility] [address] PT-1 Request [id number] Pending - [facility] [address] [facility] [address] PT-1 Request [id number] Pending - [facility] General Surgeons [address] [place] [address] [place] [address] * Telephone Encounter - Yi Kingston - 03/20/2023 10:05 AM EDT Patient will recieve approval / denial letter via mail. PT-1 Request [id number] Pending - [facility] 230 [facility] [address] PT-1 Request [id number] Pending - [facility] [address] [facility] [address] PT-1 Request [id number] Pending - [facility] [address] [facility] [address] * Telephone Encounter - Radha Turk - 02/26/2023 8:40 AM EDT Tc from pt requesting to renew PT1 forms that On February: PT1 Name of facility: [facility] Specialty: ALL FUTURE APPT's Location: 230 [place] [address] Date: n/a Time: n/a fax: n/a Phone: n/a wheelchair: n/a Cell Room Supervisor: n/a PT1 Name of facility: [facility] Specialty: ALL FUTURE APPT's Location: [address] [place] [address] Date: n/a Time: n/a fax: n/a Phone: n/a wheelchair: n/a Cell Room Supervisor: n/a PT1 Name of facility: [facility] Specialty: ALL FUTURE APPT's Location: 60 [facility], [place] [address] Date: n/a Time: n/a fax: n/a Phone: n/a wheelchair: n/a Cell Room Supervisor: n/a PT1 Name of facility: [facility] General Surgeons Specialty: ALL FUTURE APPT's Location: [address] [place] [address] [place] [address] Date: n/a Time: n/a fax: n/a Phone: n/a wheelchair: n/a Cell Room Supervisor: n/a FOR ALL FUTURE APPT's!! Please contact pt at [phone] documented in this encounter Plan of Treatment Not on file documented as of this encounter Visit Diagnoses Not on filedocumented in this encounter Care Teams Social Worker Aide Relationship Specialty Start Date End Date Morena Forte FNP [address] [place] [address] PCP - General Family Medicine 09/27/22 Jeremiah Humphrey Community Health Worker 04/18/24 Raj Galvin MD [address] [place] [address] 200 [place] [address] Nephrology 08/25/24 [place] [address] [place] [address] Thoracic Surgery 08/25/24 documented as of this encounter
--- OUTSIDE RECORDS SUMMARY | 2025-02-17 10:45 | XMS_ITS | Encounter Summary ---
Author Organization [facility] Address 75 [facility] 7t [place] [address] Care Team Providers Care Wholesale And Retail Merchant Name Role Phone Morena Forte Primary Care Provider [phone] Jeremiah Humphrey Unavailable Unavailable Raj Galvin MD Unavailable [phone] [place] Unavailable Reason for Visit * Reason Onset Date Comments Medication Question 02/23/2023 Other 02/23/2023 Encounter Details Date Type Department Care Team ([facility] st Contact Info) Description 02/23/2023 Telephone [facility] 230 [place] [address] Morena Forte FNP [address] [place], [place] [phone] Medication Question; Other Social History Tobacco Use [...] to inform PCP he is currently at [facility] since 02/20/23 admitted due to breathingtrouble. Patient is due to discharge today but has not yet. Patient is requesting a call back, in regards to medication questions. No other details provided. documented in this encounter Plan of Treatment Not on file documented as of this encounter Visit Diagnoses Not on filedocumented in this encounter Care Teams Wholesale And Retail Merchant Relationship Specialty Start Date End Date Morena Forte FNP [address] [place] [address] PCP - General Family Medicine 09/27/22 Jeremiah Humphrey Community Health Worker 04/18/24 Raj Galvin MD [address] [address] Nephrology 08/25/24 [place] [address] [place] [address] Thoracic Surgery 08/25/24 documented as of this encounter
--- OUTSIDE RECORDS SUMMARY | 2025-02-17 10:45 | XMS_ITS | Encounter Summary ---
Author Organization [facility] Address 75 [facility] 7t [place] [address] Care Team Providers Care Personal Lines Sales Executive Name Role Phone Morena Forte Primary Care Provider [phone] Jeremiah Humphrey Unavailable Unavailable Raj Galvin MD Unavailable [phone] [place] Unavailable Reason for Visit * Reason Comments Med Refill Encounter Details Date Type Department Care Team (Late st Contact Info) Description 02/26/2023 Refill [facility] MEDICINE 230 [place] [address] Morena Forte FNP [address] [place] [address] Social History Tobacco Use Types Packs/Day Years [...] 02/26/2023 10:33 AM EDT Pt discharged from [facility] 02/23/23 Dx: Pulmonary emboli, lung cancer. Discharge [...] on filedocumented in this encounter Care Teams Personal Lines Sales Executive Relationship Specialty Start Date End Date Morena Forte FNP [address] [place] [address] PCP - General Family Medicine 09/27/22 Jeremiah Humphrey Community Health Worker 04/18/24 Raj Galvin MD [address] [place] [phone] Nephrology 08/25/24 [place] [address] [place] [address] Thoracic Surgery 08/25/24 documented as of this encounter
--- OUTSIDE RECORDS SUMMARY | 2025-02-17 10:45 | XMS_ITS | Encounter Summary ---
Author Organization [employer] Address 75 [facility] 7t [place] [address] Care Team Providers Care Contracting Support Specialist Name Role Phone Morena Forte Primary Care Provider [phone] Jeremiah Humphrey Unavailable Unavailable Raj Galvin MD Unavailable [phone] [place] Unavailable Reason for Visit * Reason Onset Date Comments PT-1 01/25/2024 Encounter Details Date Type Department Care Team (Late st Contact Info) Description 01/25/2024 Telephone [facility] MEDICINE 230 [place] [address] Morena Forte FNP 505 [place], [place] [phone] PT-1 Social History Tobacco Use Types Packs/Day [...] Y/N: Yes Provider name or facility name: [facility] Facility Address: [address] Escort needed: Yes Do you have a wheelchair: Y/N: No If yes- Manual or electric: Uses Lopez Visits: 5 Monthly Patient calling requesting PT1 Home Address verified: Y/N: Yes Provider name or facility name: [facility]: Denise Carter D[facility] Facility Address: [address] [place] [address] Escort needed: No Do you have a wheelchair: Y/N: No If yes- Manual or electric: Uses Lopez Visits: 3 monthly Patient calling requesting PT1 Home Address verified: Y/N: Yes Provider name or facility name: [facility] Facility Address: [address] [place] [address] Escort needed: Y/N: No Do you have a wheelchair: Y/N: No If yes- Manual or electric: Uses lopez Visits: 2 monthly Patient calling requesting PT1 Home Address verified: Y/N: Yes Provider name or facility name: [facility] Facility Address: 230 [facility] needed: Y/N: No Do you have a wheelchair: Y/N: No If yes- Manual or electric: Uses Visits: Twice a month Patient calling requesting PT1 Home Address verified: Y/N: Yes Provider name or facility name: [facility] Facility Address: [address] [place] [address] Escort needed: Y/N: No Do you have [...] documented as of this encounter Care Teams Contracting Support Specialist Relationship Specialty Start Date End Date Morena Forte FNP 230 [place] [address] PCP - General Family Medicine 09/27/22 Jeremiah Humphrey Community Health Worker 04/18/24 Raj Galvin MD [address] [address] Nephrology 08/25/24 [place] [address] [place] [address] Thoracic Surgery 08/25/24 documented as of this encounter
--- OUTSIDE RECORDS SUMMARY | 2025-02-17 10:45 | XMS_ITS | Encounter Summary ---
Author Organization [employer] Address 75 [facility] 7t [place] [address] Care Team Providers Care Procurement Representative Name Role Phone Morena Forte Primary Care Provider [phone] Jeremiah Humphrey Unavailable Unavailable Raj Galvin MD Unavailable [phone] [place] Unavailable Reason for Visit * Reason Comments Med Refill Encounter Details Date Type Department Care Team ([facility] st Contact Info) Description 2025 Refill [facility]S 505 [place] [address] Morena Forte FNP 505 [place], [place] [phone] Lower extremity edema Social History Tobacco Use [...] documented as of this encounter Care Teams Procurement Representative Relationship Specialty Start Date End Date Morena Forte FNP 230 [place] [address] PCP - General Family Medicine 09/27/22 Jeremiah Humphrey Community Health Worker 04/18/24 Raj Galvin MD 100 [facility] 200 [place] [phone] Nephrology 08/25/24 [place] [address] [place] [address] Thoracic Surgery 08/25/24 documented as of this encounter
--- OUTSIDE RECORDS SUMMARY | 2025-02-17 10:45 | XMS_ITS | Encounter Summary ---
Author Organization [employer] Address 75 [facility] 7t [place] [address] Care Team Providers Care Marine Scientist Name Role Phone Morena Forte Primary Care Provider [phone] Jeremiah Humphrey Unavailable Unavailable Raj Galvin MD Unavailable [place] Unavailable Reason for Visit * Reason Onset Date Comments Nurse Triage 11/22/2023 Encounter Details Date Type Department Care Team (Late st Contact Info) Description 11/22/2023 Telephone [facility] MEDICINE 230 [place] [address] Morena Forte FNP [address] [place], [place] [phone] Nurse Triage Social History Tobacco Use Types [...] as of this encounter Care Teams Marine Scientist Relationship Specialty Start Date End Date Morena Forte FNP 230 [place] [address] PCP - General Family Medicine 09/27/22 Jeremiah Humphrey Community Health Worker 04/18/24 Raj Galvin MD 100 [facility] 200 [place] [address] Nephrology 08/25/24 [place] [address] [place] [address] Thoracic Surgery 08/25/24 documented as of this encounter
--- OUTSIDE RECORDS SUMMARY | 2025-02-17 10:45 | XMS_ITS | Encounter Summary ---
Author Organization [employer] Address 75 [facility] 7t [place] [address] Care Team Providers Care Chief Solution Architect Name Role Phone Morena Forte Primary Care Provider [phone] Jeremiah Humphrey Unavailable Unavailable Raj Galvin MD Unavailable [phone] [place] Unavailable Reason for Visit * Reason Onset Date Comments PT1 11/26/2024 Encounter Details Date Type Department Care Team (Late st Contact Info) Description 11/26/2024 Telephone [facility] MEDICINE 230 [place] [address] [place] Forte FNP [address] [place], [place] [phone] PT1 Social History Tobacco Use Types Packs/Day [...] Y/N: Yes Provider name or facility name: [place] [address]. Escort needed: Y/N: No Do you have [...] documented as of this encounter Care Teams Chief Solution Architect Relationship Specialty Start Date End Date [place] Forte FNP [address] [place] [address] PCP - General Family Medicine 09/27/22 Jeremiah Humphrey Community Health Worker 04/18/24 Raj Galvin MD [address] [address] Nephrology 08/25/24 [place] [address] [place] [address] Thoracic Surgery 08/25/24 documented as of this encounter
--- OUTSIDE RECORDS SUMMARY | 2025-02-17 10:45 | XMS_ITS | Encounter Summary ---
Author Organization [employer] Address 75 [facility] 7t [place] [address] Care Team Providers Care Fur Finisher Seamstress Name Role Phone Morena Forte Primary Care Provider [phone] Jeremiah Humphrey Unavailable Unavailable Raj Galvin MD Unavailable [phone] [place] Unavailable Reason for Visit * Reason Onset Date Comments PT1 01/01/2025 Encounter Details Date Type Department Care Team (Late st Contact Info) Description 01/01/2025 Telephone [facility] MEDICINE 230 [place] [address] Morena Forte FNP [address] [place], [place] [phone] PT1 Social History Tobacco Use Types Packs/Day [...] Y/N: Yes Provider name or facility name: [facility] - [address] [place] [address] Escort needed: Y/N: No Do you have a wheelchair: Y/N: Yes If yes- Manual or electric: electric Visits: (2x monthly) Patient calling requesting PT1 Home Address verified: Y/N: Yes Provider name or facility name: [address] [place] [address] Escort needed: Y/N: No Do you have a wheelchair: Y/N: Yes If yes- Manual or electric: electric Visits: (2x monthly) Patient calling requesting PT1 Home Address verified: Y/N: Yes Provider name or facility name: [facility] - 230 [place] [address] Escort needed: Y/N: No Do you have [...] documented as of this encounter Care Teams Fur Finisher Seamstress Relationship Specialty Start Date End Date More[place] Forte FNP 230 [place] [address] PCP - General Family Medicine 09/27/22 Jeremiah Humphrey Community Health Worker 04/18/24 Raj Galvin MD [address] [place] [address] Nephrology 08/25/24 [place] [address] [place] [address] Thoracic Surgery 08/25/24 documented as of this encounter
--- OUTSIDE RECORDS SUMMARY | 2025-02-17 10:45 | XMS_ITS | Encounter Summary ---
Author Organization [employer] Address 75 [facility] 7t [place] [address] Care Team Providers Care Analysis Lead Name Role Phone Morena Forte Primary Care Provider [phone] Jeremiah Humphrey Unavailable Unavailable Raj Galvin MD Unavailable [phone] [place] Unavailable Reason for Visit * Reason Onset Date Comments Prior Authorization 01/01/2025 Encounter Details Date Type Department Care Team (Late st Contact Info) Description 01/01/2025 Telephone [facility] MEDICINE 230 [place] [address] Morena Forte FNP 505 [place] [address] Prior Authorization Social History Tobacco Use Types [...] documented as of this encounter Care Teams Analysis Lead Relationship Specialty Start Date End Date Morena Forte FNP [address] [place] [address] PCP - General Family Medicine 09/27/22 Jeremiah Humphrey Community Health Worker 04/18/24 Raj Galvin MD [address] [facility] 200 [place] [address] Nephrology 08/25/24 [place] [address] [place] [address] Thoracic Surgery 08/25/24 documented as of this encounter
--- OUTSIDE RECORDS SUMMARY | 2025-02-17 10:45 | XMS_ITS | Encounter Summary ---
Author Organization [employer] Address 75 [facility] 7t [place] [address] Care Team Providers Care Form Carpenter Name Role Phone Morena Forte Primary Care Provider [phone] Jeremiah Humphrey Unavailable Unavailable Raj Galvin MD Unavailable [phone] [place] Unavailable Reason for Visit * Reason Onset Date Comments PT1 03/24/2024 Encounter Details Date Type Department Care Team (Late st Contact Info) Description 03/24/2024 Telephone [facility] MEDICINE 230 [place] [address] Morena Forte FNP [address] [place], [place] [phone] PT1 Social History Tobacco Use Types Packs/Day [...] name: Hemant Gary DPM Podiatry Facility Address: [address] [place] [address] Escort needed: Y/N: No Do you have [...] as of this encounter Care Teams Form Carpenter Relationship Specialty Start Date End Date Morena Forte FNP [address] [place] [address] PCP - General Family Medicine 09/27/22 Jeremiah Humphrey Community Health Worker 04/18/24 Raj Galvin MD [address] [address] Nephrology 08/25/24 [place] [address] [place] [address] Thoracic Surgery 08/25/24 documented as of this encounter
--- OUTSIDE RECORDS SUMMARY | 2025-02-17 10:45 | XMS_ITS | Encounter Summary ---
Author Organization [employer] Address 75 [facility] 7t [place] [address] Care Team Providers Care Estate Tax Examiner Name Role Phone Morena Forte Primary Care Provider [phone] Jeremiah Humphrey Unavailable Unavailable Raj Galvin MD Unavailable [phone] [place] Unavailable Reason for Visit * Reason Onset Date Comments Nurse Triage 11/11/2024 Encounter Details Date Type Department Care Team (Late st Contact Info) Description 11/11/2024 Telephone [facility] MEDICINE 230 [place] [address] Morena Forte FNP [address] [place], [place] [phone] Nurse Triage Social History Tobacco Use Types [...] assessment. Pt states that he is in [facility] due to the pain increasing. RN advised pt to call [facility] when he is discharge and if he [...] pt re: triage. Pt was seen at [facility] ED last month and had follow [...] states that he was not able to pick up man antibiotic until yesterday but has since been [...] can't walk) The caller accepted this outcome. [id number] documented in this encounter Plan of Treatment [...] documented as of this encounter Care Teams Estate Tax Examiner Relationship Specialty Start Date End Date Morena Forte FNP [address] [place] [address] PCP - General Family Medicine 09/27/22 Jeremiah Humphrey Community Health Worker 04/18/24 Raj Galvin MD [address] [address] Nephrology 08/25/24 [place] [address] [place] [address] Thoracic Surgery 08/25/24 documented as of this encounter
== END 2025-02-17 09:54 | disposition home or self-care (01) ==
LOC: HO.HKA 09:41
PROVIDERS: PCP Registered Nurse; Visit Provider Internal Medicine Hypertension Specialist
DX: R80.9 Proteinuria, unspecified (principal)
CPT/HCPCS: 99214

== ENCOUNTER → 2025-02-17 09:41 | Outpatient (BNVA) | payer MEDICAID, SELFPAY | PROVIDERS: PCP Registered Nurse; Visit Provider Internal Medicine Hypertension Specialist | DX: R80.9 Proteinuria, unspecified (principal) | CPT/HCPCS: 99212 ==

== ENCOUNTER 2025-04-29 10:45 | Outpatient (AMB) | payer MEDICAID, SELFPAY ==
[2025-04-29 10:46] VITALS: BP 144/74; PULSE 68; O2SAT 94; BMI 41.6
--- NOTE | 2025-04-29 10:46 | A.OFFVIS_ITS ---
Vital Signs 04/29/25 10:46 Height 5 ft 8 in Weight 273 lb 5.971 oz BMI 41.6 BP 144/74 H Blood Pressure Location Lt brachial Position Sitting Pulse 68 Pulse Source Pulse Oximeter Pulse Oximetry (%) 94 Oxygen Delivery Method Room Air Intake Visit Reasons: copd Evp Chief Exploration Officer Required: No Accompanied by: Self / Same As Patient Allergies Penicillins (PENICILLINS) Allergy (Unknown, Verified 04/29/25 10:49) UNKNOWN HPI Comments Details: The patient is 60-year-old gentleman active smoker who was started developing worsening cough. The patient was seen by his primary care doctor with he was referred to the lung cancer screening program and underwent a CT scan of the chest. That demonstrated a 1.2 irregular left-sided pulmonary nodule. The patient was referred to the thoracic surgeon will operate on him resecting the nodular density which indeed was malignant. The patient was treated with curative intent. He had the surgery effectively. Now he is having some shortness of breath postop. He still having coughing. She we did review his pulmonary function studies prior to surgery demonstrating a reversible obstruction consistent with asthma. In addition to this the patient is having some shortness of breath and pain upon breathing. He understands that this will take some time to heal after surgery. He does have a follow-up with surgeon on January 23. He does have the bandages all dried up with blood. I did remove and replace it with a Tegaderm just to cover the area that was slightly open. The patient wants to be able to take a shower. The area looks dry enough to be able to do so. In regards of smoking the patient understands he needs to quit. He does have the nicotine patch. A game also the Nicorette gum that he can use intermittently for breakthrough. I did explain to him that he does not want to overdo the Nicorette gum because it will be too high of a nicotine dose. Therefore if he is using the 21 mg patch just to limited to 2-3 a day. 03/02/2023 the patient is here for a pulmonary follow-up visit. The patient has had a very bed for few weeks. He started developing worsening respiratory symptoms as well as significant tachycardia. He was evaluated by Oncology at that time. Because of the significant tachycardia and discomfort he was sent to the ER. There he had a CTA will be in for a pulmonary emboli. The patient subsequently placed on Eliquis. He has been to the ER now multiple times because of recurrent chest pains and shortness of breath. He has chronic pain issues so for him to have pain as very severe he states. Typically the pain is between 8-10/10 the. The pain is mainly at the surgical site. 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 He does have a pleural effusion. He does report to Toradol in the past. However, now that he is on Eliquis and concerned that too much as 3 L can result in increased bleeding. Therefore will back off on using NSAIDs. I will give the patient Percocet in order for him to continue with Tylenol and oxycodone on to try to alleviate the symptoms. Explained to the patient that given a prescription now but does not mean that is going to continue getti controlled pain medications from a. Patient with continued given the Eliquis. He understands very important for him to take it. He also needs to start chemotherapy. I explained to him that I will also agreeable for him to complete the 4 cycles of chemo ended can not be evaluated. I at that point if the be reasonable to sample his lymph nodes we can always consider a endobronchial ultrasound bronchoscopy to given complete reassurance that the mediastinum is clear since he couldnt have a during surgery. 06/19/2023 the patient is here for a pulmonary follow-up visit. The patient overall has been doing better. His pain is better controlled. He continues on the Eliquis for the pulmonary emboli and seems to be tolerating that well. No evidence of any minor major bleeding. He completed his cycles of chemotherapy. Once he has completed with chemotherapy he will have restaging. The patient will follow up with Oncology for that. I did reach out to Oncology to see when he is scheduled to be evaluated. From a respiratory status he continues uses respiratory therapy with good effect. He did quit smoking. He has been about 11 or 12 days. His motivated and reassured. He is eager to find out his response to chemotherapy. 10/16/2023 the patient is here for a pulmonary follow-up visit. He continues to do fairly well from a respiratory status. Does complaint of the pleuritic chest discomfort after his surgery. Explained to him that this could be a chronic issue for him. In addition to that he continues on the Eliquis 5 mg twice a day. He is tolerating that well without any evidence of any adverse effects. We talked about the importance of continuing the medication. Will reassess with a V/Q scan in the springtime to see if there is any evidence of any chronic clot. At that point once he completes a year worth of therapy we can consider prophylactic dose of 2.5 twice a day versus continuing the 5 mg twice a day. Based on the fact that he is at cancer I will recommend that he continue some degree of anticoagulation this time. We talked about the importance of smoking cessation. He is willing to try the patch again. He would like to quit for 2023. Otherwise he is without any other complaints. 04/28/2024 the patient is here for pulmonary follow-up visit. The patient overall has been doing okay. He continues with his respiratory medications which include Breo and Incruse. The medications have been affecting beneficial. The patient unfortunately continues to smoke cigarettes. He quit for a few months and then restarted again. He is about 5 cigarettes a day or so. He still struggling. He is also complaining of lower extremity edema which she has had for some time. He did have a repeat CT scan of the chest sometime in the spring 2023 likely around January at [facility]. This was ordered through thoracic surgery. He will continue to get CAT scans every 6 months for least 5 years in view of his lung cancer diagnosis. In view of his COPD and also lung cancer resection will go ahead and request an overnight oximetry to assess his oxygen needs at nighttime. 09/12/2024 the patient is here for pulmonary follow-up visit. Overall the patient has been doing well. Unfortunately continues to smoke cigarettes. He responds well to the Breo and the Incruse. He has been taking them daily. He has not had to use his rescue inhaler often does not 2 times a week. He continues to get serial imaging so the chest at [facility] with the thoracic surgery program there to follow-up with his history of lung cancer. In the meantime he has not been using the CPAP. He is sleeps elevated and seems like it is getting restful sleep with an [place] score of 7/24. Therefore healed all hold off at this time. He never had his overnight oximetry which is okay. For now he seems to be stable. Recently had a knee surgery done actually a total knee replacement and he tolerated that well does have some swelling of the leg but minimal. The patient follow-up in 6-8 months. If he has any issues prior to that he will call for an earlier assessment. 04/29/2025 the patient is here for pulmonary follow-up visit. Overall he is doing okay. He did have a scare where he had a pulmonary nodule was growing. He underwent a immediate PET scan at [facility]. He was called and told that he was doing okay and that the areas of no concern. Unfortunately continues to smoke cigarettes and also even having history of lung cancer. The patient is also having hard time with he and humidity. His new apartment it gets very hot and has a painful electricity therefore the EAC gets very expensive. He has been trying to uses CPAP since that gives him some relief but even then still having some difficulty with his breathing. He will continue to monitor closely the pulmonary nodules at [facility] I will see about getting some reports. Will follow- up in the springtime he is going to continue with the current respiratory therapy. [facility] Medical History Pulmonary emboli Osteoarthritis Pleuritic chest pain Post-thoracotomy pain syndrome Asthma-COPD overlap syndrome Lung cancer (~2022) Nicotine dependence, cigarettes, uncomplicated Depression with anxiety Obesity DA (obstructive sleep apnea) Hepatitis C HLD (hyperlipidemia) Methadone maintenance therapy patient History of CVA (cerebrovascular accident) (~2008) Surgical History Hx of appendectomy History of lung surgery History of bilateral hip replacements History of carpal tunnel surgery History of left inguinal hernia repair History of esophagogastroduodenoscopy (EGD) History of colonoscopy Family History Father No problems noted. Mother Family history of high blood pressure Hx of diabetes insipidus Social History Household Members: None Housing: Apartment Do you presently have visiting nurse or other home services: Yes Alcohol intake: former Patient Tobacco Use Status: Current everyday Tobacco user Tobacco use type: Cigarette Cigarette Packs Per Day: 0.5 Cigarettes Per Day: 8 Years Smoked: (onset 13yo, 1ppd x 44yrs, now 3/4ppd, 40pyh) e-Cigarette/Vaping Use: Currently Using service: No Current occupational status: disabled Review of Systems Const Unobtainable due to mental condition Denies fever(s) and Denies weakness Eyes Denies change in vision ENT Denies dizziness Card Reports chest pain Resp Denies cough and Denies wheezing GI Denies hematochezia and Denies change in stool character Musc Denies abnormal gait, Denies muscle cramps, Denies muscle weakness, Denies numbness, Denies radiating pain into limb and Reports tingling Skin/Breast Reports as per HPI Neuro Denies abnormal gait, Denies dizziness, Denies numbness, Reports tingling and Denies weakness Darin/Lymph Denies easy bleeding, Denies easy bruising and Denies lymphadenopathy Aller/Immun Denies wheezing Physical Exam Vital Signs: Last Vital Signs Pulse 68 04/29/25 10:46 BP 144/74 H 04/29/25 10:46 Pulse Ox 94 04/29/25 10:46 Oxygen Delivery Method Room Air 04/29/25 10:46 BMI result Body Mass Index 41.6 Const General: comfortable Nutritional Appearance: well nourished and obese Orientation/consciousness: patient oriented x3 HEENT Other: Unremarkable Head: No normal to inspection Mouth: moist mucous membranes Neck Neck: Yes supple and Yes no JVD Chest Chest palpation & inspection: normal inspection of the chest Resp Effort & Inspection: normal respiratory effort Auscultation: clear to auscultation bilaterally and no rales Cardio Jugular venous distension: no JVD Palpation: no palpable S3 and no palpable S4 Heart sounds: no rubs GI Palpation (GI): Soft to palpation and nontender Percussion: No Fluid wave present General: Yes no CVA tenderness Back/Spine/Pelvis Other: unremarkable Back: no CVA tenderness Skin General skin exam: no rashes or lesions noted Neuro General: patient oriented x3 Extrem General: Yes no pedal edema and No clubbing Psych Mental Status: mental status grossly normal Assessment & Plan Assessment & Plan (1) Asthma-COPD overlap syndrome: Code(s): J44.9 - Chronic obstructive pulmonary disease, unspecified Category: Medical (2) Nicotine dependence, cigarettes, uncomplicated: Comment: stopped smoking Code(s): F17.210 - Nicotine dependence, cigarettes, uncomplicated Category: Medical (3) Left upper lobe pulmonary nodule: Comment: (1.1 x 1.2 cm lesion in [place] - noted on 10/27/22 LDCT) Code(s): R91.1 - Solitary pulmonary nodule Category: Medical (4) Pulmonary emboli: Onset Date: ~02/2023 Code(s): I26.99 - Other pulmonary embolism without acute cor pulmonale Category: Medical Qualifiers: Pulmonary embolism type: single subsegmental (without acute cor pulmonale) Qualified Code(s): I26.93 - Single subsegmental pulmonary embolism without acute cor pulmonale (5) Post-thoracotomy pain syndrome: Code(s): G89.12 - Acute post-thoracotomy pain Category: Medical Plan stop Breo/Incruse start breztri EVELYN as needed continue tobacco cessation: needs to quit no CPAP, using positional bed, sleeping elevated [facility] following lung cancer, need to review recent CT chest F/U 6-8 months Medications: New alppnuyfun-zshnhtue-indelqlqvl 160-9-4.8 mcg/actuation (Breztri Aerosphere) 2 inhalations inhalation BID 10.7 grams 0RF Discontinued fluticasone furoate-vilanterol 200-25 mcg/dose (Breo Ellipta) Discontinued Reason: Doctor's Order 1 inh inhalation DAILY 30 days 60 ea 11RF J45.909 - Unspecified asthma, uncomplicated Coding Level of Care Code Est Pt Level 4 (06596) Diagnoses Asthma-COPD overlap syndrome J44.9 Nicotine dependence, cigarettes, uncomplicated F17.210 Left upper lobe pulmonary nodule R91.1 Single subsegmental pulmonary embolism without acute cor pulmonale I26.93 Pulmonary embolism type: single subsegmental (without acute cor pulmonale) Post-thoracotomy pain syndrome G89.12 Time Spent (min) 16
--- OUTSIDE RECORDS SUMMARY | 2025-04-29 11:47 | XMS_ITS | Clinical Summary ---
Author Organization [facility] Address [address] [place] [address] Phone Care Team Providers Care Plate Put In Worker Name Role Phone Morena Forte RN Primary [...] 1 Tablet by mouth every evening. Active cyclobenzaprine (FLEXERIL) 10 mg tablet TAKE 1 TABLET [...] times a day for 12 weeks. Active Active Problems Problem Noted Date Diagnosed Date History of lung cancer 2025 Assessment & Plan (02/05/2025 10:53 AM EDT): Mr. Dorsey is a 60-year-old male who had a robotic left upper lobe segmentectomy in December 2022 for a stage Ib adenocarcinoma. He completed adjuvant chemotherapy with Dr. Ulloa at [facility]. The patient's most recent surveillance chest [...] Encounters Date Type Department Care Team Description 04/16/2025 2:57 PM EDT - 04/16/2025 11:59 PM EDT Hospital Encounter [facility] PET Scan [address] [place] [address] Non-small cell lung cancer, left (CMS/HCC V24, CMS/HCC V28) Discharge Disposition: Home or Self Care 02/05/2025 10:45 AM EDT Office Visit Thoracic Surgery - [address] [place] [phone] Amara Castorena PA History of lung cancer (Primary Dx); Multiple pulmonary nodules from Last 3 Months Immunizations Name Administration Dates Next Due Pfizer SARS-CoV-2 COVID-19, mRNA, LNP-S, preservative free 12/10/2020,11/19/2020 Surgical History Surgery Date Site/Laterality Comments HIP ARTHROPLASTY PROCEDURE: HISTORICAL HIP REPLACEMENT CARPAL TUNNEL RELEASE Bilateral PROCEDURE: HISTORICAL CARPAL TUNNEL REL COLONOSCOPY N/A PROCEDURE: HISTORICAL COLONOSCOPY HERNIA REPAIR PROCEDURE: HISTORICAL HERNIA REPAIR/ING APPENDECTOMY PROCEDURE: [place] APPENDECTOMY Medical History Medical History Date Comments Depression with anxiety DX:Depre ssion with anxiety Viral hepatitis C without hepatic coma DX:Viral hepatitis C without hepatic coma H/O: CVA (cerebrovascular accident) DX:H/O: CVA (cerebrovascular accident) HLD (hyperlipidemia) DX:HLD (hyp erlipidemia) 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 ([facility] V24, [facility] V28) DX:Methadone maintenance th erapy patient ([facility]) Nicotine dependence DX:Nicotine dependence Obesity DX:Obesity Sleep disorder breathing DX:Slee p disorder breathing COPD (chronic obstructive pu lmonary disease) ([facility] V24, [facility] V28) DX:COPD (chronic o bstructive pulmonary disease) ([facility]) Lung cancer ([facility] V24, [facility] V28) DX:Lung cancer (HCC) Mild intermittent asthma, uncomplicated DX:Mild intermittent asthma, uncomplicated Family History Medical History Relation Name Comments No Known Problems Father Diabetes Mother Hypertension Mother Relation Name Status Comments Father Mother Social History Tobacco Use Types Packs/Day Years Used Date Smoking Tobacco: Some Days Cigarettes 1 47.5 Started: 10/22/1977 Smokeless Tobacco: Never Alcohol Use [...] 65 02/05/2025 10:27 AM EDT Temperature 36.7 C (98.1 F) 02/05/2025 10:27 AM EDT Respiratory Rate 16 02/05/2025 10:27 AM EDT Oxygen Saturation 98% 02/05/2025 10:27 AM EDT Inhaled Oxygen Concentration - - Weight 126 kg (277 lb 12.8 oz) 02/05/2025 10:27 AM EDT Height 172.7 cm (5' 8 ) 02/05/2025 10:27 AM EDT Body Mass Index 42.24 02/05/2025 10:27 AM EDT Plan of Treatment Upcoming Encounters Date Type Department Care Team ([facility] st Contact Info) Description 05/07/2025 8:[address] [facility] CT Scan [address] [place] [id number] 05/14/2025 10:30 AM EDT Office Visit Thoracic Surgery - [place] [address] [facility] [address] [place] [phone] Amara Castorena PA [address] [facility], [address] [place] [address] Health Maintenance Due Date Last Done Comments Diabetes: Annual Foot Exam 1975 Diabetes: Annual Retina Eye Exam 1975 Hepatitis A Vaccines (1 of 2 - Risk 2-dose series) 02/05/1984 Zoster Vaccines (1 of 2) 02/05/1984 COVID-19 Vaccine (3 - Pfizer risk series) 01/07/2021 12/10/2020, 11/19/2020 Colorectal Cancer Screening: Colonoscopy 11/20/2023 HIV Screening 11/20/2023 Hepatitis C Screening 11/20/2023 Lung Cancer Screening (Low Dose CT) 11/20/2023 Social Influencers of Health Screening 11/20/2023 Hepatitis B Vaccines (1 of 3 - Risk 3-dose series) 2025 RSV Immunization Adult Patients (1 - Risk 60-74 years 1-dose series) 2025 Diabetes: Annual Urine Albumin-Creatinine Ratio (uACR) 04/17/2025 Diabetes: Blood Sugar Contro l Test (HGBA1C) 05/07/2025 11/07/2024 Influenza Vaccine (#1) 2025 08/07/2015 Depression Screening 06/30/2025 06/30/2024 Diabetes: Annual GFR (Glomerular Filtration Rate) 11/07/2025 11/07/2024 Pneumococcal Vaccine: 50+ Years (3 of 3 - PPSV23, PCV20 or PCV21) 07/29/2026 07/29/2021, 07/29/2021 Pneumococcal Vaccine: Pediatrics (0 to 5 Years) and At-Risk Patients (6 to 49 Years) (3 of 3 - PPSV23, PCV20 or PCV21) 07/29/2026 07/29/2021, 07/29/2021 Cholesterol Screening (Lipid Panel) 11/07/2029 11/07/2024 DTaP,Tdap,and [...] Procedure Name Priority Date/Time Associated Diagnosis Comments PET CT SKULL TO MID THIGH INITIAL Routine 04/16/2025 5:20 PM EDT Non-small cell lung cancer, left ([facility] V24, [facility] V28) from Last 3 Months Results * PET CT Skull to Mid Thigh Initial (04/16/2025 5:20 PM EDT) Anatomical Region Laterality Modality Body Radiographic Ileana ging 04/27/2025 10:1 2 AM EDT Impressions 04/27/2025 11:28 AM EDT Postsurgical appearance in the left lung with mild activity along the suture line. 9 mm nodule/opacity in the left lower lobe demonstrates mild FDG activity; nonspecific. Smaller 5 mm nodule in the left lower lobe does not demonstrate significant FDG activity likely due to small size. Please note: The CT was acquired at a low radiation dose settings. The images are of nondiagnostic quality and used solely for purposes of attenuation correction and slice localization for the PET scan. If a diagnostic CT study is desired it must be ordered separately. -------- FINAL REPORT -------- Dictated By: Ana Paula Gifford Dictated Date: 04/27/2025 10:12 ET Assigned Physician: Ana Paula Gifford Reviewed and Electronically Signed By: Ana Paula Gifford Signed Date: 04/27/2025 11:28 ET Workstation ID: [id number] Transcribed By: Self Edit Transcribed Date: 04/27/2025 10:12 ET Narrative 04/27/2025 11:28 AM EDT INDICATION: NON-SMALL CELL LUNG CANCER. History of left upper lobe wedge with complete segmentectomy in 2022 status post chemotherapy. New left lower lobe pulmonary nodule. Restaging. TECHNIQUE: FDG PET-CT imaging was performed from the skull bases through the thighs in a single acquisition with data set reconstructed in axial, coronal, and sagittal planes at the computer workstation with fused data from both the PET imaging study and attenuation correction CT. The CT portion of the examination was done strictly for attenuation correction and is not a true diagnostic CT examination. DLP: 1143 mGy-cm Radiopharmaceutical: 10.7 mCi of F-18 FDG IV. Blood glucose: 76 mg/dl. COMPARISON: Correlation is made with prior chest CT January 2025 and outside PET/CT of which only the CT images are available dated February 2023 FINDINGS: HEAD AND NECK: No abnormal FDG activity. THORAX: Postsurgical appearance in the left lung with mild activity along the suture line SUV Max 1.9. 9 mm nodule/opacity in the left lower lobe SUV max 1.6. 5 mm nodule in the left lower lobe SUV max 0.7. Previously seen groundglass opacities in the right lung demonstrate interval clearing. No significant FDG avid mediastinal or hilar lymphadenopathy. For example, right paratracheal lymph node SUV max 0.9 (mediastinal blood pool SUV Max 3.0). No significant hilar activity. ABDOMEN/PELVIS: No abnormal FDG activity. Nonspecific bowel activity. MUSCULOSKELETAL: No abnormal FDG activity. Bilateral total hip arthroplasties with nonspecific associated FDG activity. Mild degenerative changes with associated FDG activity. Procedure Note Ana Paula Gifford MD - 04/27/2025 INDICATION: NON-SMALL CELL LUNG CANCER. History of left upper lobe wedgewith complete segmentectomy in 2022 status post chemotherapy. New leftlower lobe pulmonary nodule. Restaging. TECHNIQUE: FDG PET-CT imaging was performed from the skull bases throughthe thighs in a single acquisition with data set reconstructed in axial,coronal, and sagittal planes at the computer workstation with fused datafrom both the PET imaging study and attenuation correction CT. The CTportion of the examination was done strictly for attenuation correctionand is not a true diagnostic CT examination. DLP: 1143 mGy-cm Radiopharmaceutical: 10.7 mCi of F-18 FDG IV. Blood glucose: 76 mg/dl. COMPARISON: Correlation is made with prior chest CT January 2025 and outsidePET/CT of which only the CT images are available dated February 2023 FINDINGS: HEAD AND NECK: No abnormal FDG activity. THORAX: Postsurgical appearance in the left lung with mild activity alongthe suture line SUV Max 1.9. 9 mm nodule/opacity in the left lower lobeSUV max 1.6. 5 mm nodule in the left lower lobe SUV max 0.7. Previouslyseen groundglass opacities in the right lung demonstrate intervalclearing. No significant FDG avid mediastinal or hilar lymphadenopathy. Forexample, right paratracheal lymph node SUV max 0.9 (mediastinal blood poolSUV Max 3.0). No significant hilar activity. ABDOMEN/PELVIS: No abnormal FDG activity. Nonspecific bowel activity. MUSCULOSKELETAL: No abnormal FDG activity. Bilateral total hiparthroplasties with nonspecific associated FDG activity. Milddegenerative changes with associated FDG activity. IMPRESSION: Postsurgical appearance in the left lung with mild activity along thesuture line. 9 mm nodule/opacity in the left lower lobe demonstrates mildFDG activity; nonspecific. Smaller 5 mm nodule in the left lower lobedoes not demonstrate significant FDG activity likely due to small size. Please note: The CT was acquired at a low radiation dose settings. The images are ofnondiagnostic quality and used solely for purposes of attenuationcorrection and slice localization for the PET scan. If a diagnostic CTstudy is desired it must be ordered separately. -------- FINAL REPORT -------- Dictated By: Ana Paula Gifford Dictated Date: 04/27/2025 10:12 ET Assigned Physician: Ana Paula Gifford Reviewed and Electronically Signed By: Ana Paula Gifford Signed Date: 04/27/2025 11:28 ET Workstation ID: [id number] Transcribed By: Self Edit Transcribed Date: 04/27/2025 10:12 ET Linda Ulloa MD IMG NM PROCEDURES Final Result from Last 3 Months Insurance [place] Advance Directives Documents on File Type Date Recorded Patient Snath Handle Assembler Expl anation Health Care Decision (hx) 08/04/2018 [...] (hx) 08/04/2018 AD ORR DIRECTIVE Care Teams Plate Put In Worker Relationship Specialty Start Date End Date Morena Forte RN [address] [place] [id number] PCP - General 03/12/24
--- OUTSIDE RECORDS SUMMARY | 2025-04-29 11:47 | XMS_ITS | Data Portability ---
Author Organization [place] Gabe [facility], [facility] Address [address] [place] [address] Care Team Providers Care Manager Of It Name Role Phone HUBER BLANKENSHIP Referring Provider [phone] [facility] (DENTAL) Primary Care Prov ider Assessment [...] stairs, and facilitate independence with functional ADL's. andria Not available 08/05/2024 14:22:09 08/07/2024 08/07/2024 Assessment: [...] LastModifiedTime 07/24/2007/24/2024 XR, knee, 3 view [email or web address]:/ [email or web address] ?Encry pted=s hAaTro YD8dLq bEUv6g %2BXZw aYqtaq 0bqfl% 2Fg9IQ a4ajBk vP9nXo QUaueC m3YtLR FvZlgJ JJ8mAn HZtai3 1b8775 AC0Kqa 3%2BHV qeiKiQ trMwF INTERFACE [facility] [address] [facility] [address] [facility] [address], [place], [address], 07/24/2024 14:30:25 07/24/20 24 07/24/2024 XR, knee, 3 view http:/ [email or web address] ?Encry pted=s hAaTro YD8dLq bEUv6g %2BXZw aYqtaq 0bqfl% 2Fg9IQ a4ajBk vP9nXo QUaueC m3YtLR FvZlgJ JJ8mAn HZtai3 2e0260 AC0Kqa 3%2BHV qeiKiQ trMwF INTERFACE [facility] [address], [place], [address], 07/24/2024 14:30:27 Result Notes None recorded. Problems Name Problem SNOMED Code Status Onset Date Resolution Date Notes Provider Name and Address Organization Details Recorded Time History of left total knee replacemen t 1632022202840 105 Active 2023 Franklyn Eagle MD [address], [facility] [place], [address] , [facility] 14:40:55 Problem Notes None recorded. Procedures Surgical History Date Name Laterality Status Provider Name and Address Organization Details Recorded Time 4 50689 Therapeutic Exercise (1:1) completed David Weiss DPT [address] [facility], [place], [address], [facility] 08/06/2024 13:06:24 4 43855 Therapeutic Exercise (1:1) completed Emy Lora PTA [address] [facility], [place], [address], [facility] 08/05/2024 14:23:00 4 96930: Hot or Cold Pack completed Emy Lora PTA [address], [place], [address], [facility] 08/05/2024 14:23:05 4 16017: Therapeutic Activities (1:1) completed David Weiss DPT [address] [facility], [place], [address], [facility] 07/30/2024 17:25:57 4 11993 Therapeutic Exercise (1:1) completed David Weiss DPT [address] [facility], [place], [address], [facility] 07/30/2024 17:25:51 4 43287: Hot or Cold Pack completed David Weiss DPT [address], [place], [address], [facility] 07/29/2024 09:18:32 4 99762 Therapeutic Exercise (1:1) completed David Weiss DPT [address], [place], [address], [facility] 07/28/2024 09:09:40 4 57429: Hot or Cold Pack completed David Weiss DPT [address], [place], [address], [facility] 07/28/2024 09:09:40 4 79353 Therapeutic Exercise (1:1) completed Emy Lora, TRANSFER MACHINE OPERATOR [address], [place], [address], [facility] 07/23/2024 14:18:07 4 83763: Hot or Cold Pack completed Emy Lora, TRANSFER MACHINE OPERATOR [address], [place], [address], [facility] 07/23/2024 14:18:13 4 12650 Therapeutic Exercise (1:1) completed CHADWICK AbdullahiT [address], [place], [address], [facility] 07/18/2024 14:56:57 4 04297: Hot or Cold Pack completed David Weiss DPT [address], [place], [address], [facility] 07/17/2024 09:25:22 4 82585: Gait training completed CHADWICK AbdullahiT [address], [place], [address], [facility] 07/18/2024 14:57:04 4 76977 Therapeutic Exercise (1:1) completed David Weiss, DPT [address], [place], [address], [facility] 07/16/2024 14:20:05 4 82564: Hot or Cold Pack completed David Weiss, DPT [address], [place], [address], [facility] 07/15/2024 10:03:58 4 78105 Therapeutic Exercise (1:1) completed David Weiss, DPT [address], [place], [address], [facility] 07/10/2024 11:09:13 4 37101: Hot or Cold Pack completed David Weiss, DPT [address], [place], [address], [facility] 07/10/2024 11:09:13 4 28302 Therapeutic Exercise (1:1) completed Emy Lora, TRANSFER MACHINE OPERATOR [address], [place], [address], [facility] 07/09/2024 14:17:25 4 86767: Hot or Cold Pack completed Emy Lora, TRANSFER MACHINE OPERATOR [address], [place], [address], [facility] 07/09/2024 14:19:16 4 20063 Therapeutic Exercise (1:1) completed Emy Lora, TRANSFER MACHINE OPERATOR [address], [place], [address], [facility] 07/04/2024 15:12:36 4 76370: Hot or Cold Pack completed Emy Lora, TRANSFER MACHINE OPERATOR [address], [place], [address], [facility] 07/04/2024 15:12:41 4 60072 Therapeutic Exercise (1:1) completed Eddi Vallecillo TRANSFER MACHINE OPERATOR [address], [place], [address], [facility] 07/02/2024 14:27:49 4 14655: Hot or Cold Pack completed Eddi Vallecillo TRANSFER MACHINE OPERATOR [address], [place], [address], [facility] 07/02/2024 14:54:49 4 50752 Therapeutic Exercise (1:1) completed David Weiss DPT [address] [facility], [place], [address], [facility] 06/27/2024 15:35:14 4 06261: Low complexity PT Eval completed David Weiss DPT [address] [facility], [place], [address], [facility] 06/27/2024 15:34:37 4 87193 Therapeutic Exercise (1:1) completed David Weiss DPT [address] [facility], [place], [address], [facility] 06/04/2024 13:08:24 4 09220: Low complexity PT Eval completed David Weiss DPT [address] [facility], [place], [address], [facility] 06/04/2024 13:08:27 Imaging Results None recorded. Procedure Notes None recorded. Medical Equipment None Reported. Allergies Allergen ID Allergen Name Allergen Category Reaction Reaction Severity Criticality Documentation Date Start Date Code Code System Note Provider Name and Address Organization Details Recorded Time 81920 Product containin g penicilli n (product) medicatio n Not available Not available Not available 12/24/20232019 09311 8001 SNOMED [facility] Medications Name Sig Start Date Stop [...] SNOMED-CT Code Diagnosis ICD10 Code Diagnosis Note [id number] [facility] [place] [address] [place] [address] 06/03/2024 08:54:33 06/24/2024 13:05:50 Osteoarthritis of left knee joint 8214714437 62281 M17.12 [id number] MD Jenni Brown 2nd floor [address] [place] [address] 06/03/2024 09:03:11 06/24/2024 13:05:40 Osteoarthritis of left knee joint 7475884422 27123 M17.12 [id number] David Weiss, [place] [facility] [address] [place] [address] 06/04/2024 12:26:27 06/04/2024 13:20:33 Osteoarthritis of left knee joint 3907629860 71815 M17.12 [id number] David Weiss, DPT [place] [place] [facility] [address] [place] [address] 06/27/2024 14:03:01 06/27/2024 14:49:48 History of left total knee replacement 8297794238 326941 Z96.652 Z47.1 [id number] Dami Curtis PA-C [facility] [address] floor [address] [facility] [place] [address] 06/26/2024 10:13:16 07/21/2024 14:50:44 History of left total knee replacement 0645201947 990309 Z96.778 [id number] Eddi Vallecillo, TRANSFER MACHINE OPERATOR [facility] [address] [place] [address] 07/02/2024 13:09:05 07/02/2024 16:49:14 History of left total knee replacement 2396718689 414329 Z96.652 Z47.1 [id number] Emy Loar, TRANSFER MACHINE OPERATOR [facility] [address] [place] [address] 07/04/2024 14:29:22 07/04/2024 15:58:17 History of left total knee replacement 9130684722 654704 Z96.652 Z47.1 [id number] Emy Lora, TRANSFER MACHINE OPERATOR [facility] [address] [place] [address] 07/09/2024 13:28:20 07/09/2024 14:29:46 History of left total knee replacement 1383688376 919113 Z96.652 Z47.1 [id number] David Weiss, DPT [place] [address] [place] [address] 07/11/2024 14:08:48 07/11/2024 15:42:43 History of left total knee replacement 1968903396 969997 Z96.652 Z47.1 [id number] [facility] [address] [place] [address] 07/16/2024 13:23:13 07/16/2024 14:25:33 History of left total knee replacement 6317165427 691619 Z96.652 Z47.1 [id number] [facility] [address] [place] [place] [address] 07/18/2024 13:26:10 07/18/2024 15:06:24 History of left total knee replacement 1995950367 313620 Z96.652 Z47.1 [id number] Emy Lora, [facility] on PT [address] [place] [address] 07/23/2024 13:38:31 07/23/2024 14:36:16 History of left total knee replacement 9200791798 192151 Z96.652 Z47.1 [id number] MD Jenni Brown 2nd floor [address] [place] [address] 07/24/2024 14:13:47 08/08/2024 14:44:20 History of left total knee replacement 9559368820 212691 Z96.872 [id number] David Weiss, [facility] [address] [place] [address] 07/28/2024 15:25:42 07/28/2024 17:21:25 History of left total knee replacement 9301093668 300304 Z96.652 Z47.1 [id number] [facility] [address] [facility] [place] [address] 07/30/2024 13:18:20 07/30/2024 15:20:45 History of left total knee replacement 4572155782 015866 Z96.652 Z47.1 [id number] Emy Geno, [facility] on PT [address] [place] [address] 08/05/2024 13:40:14 08/05/2024 14:25:57 History of left total knee replacement 3233952539 930441 Z96.652 Z47.1 [id number] David Weiss, [facility] [address] [facility] [place] [address] 08/07/2024 14:12:37 08/07/2024 15:09:39 History of left total knee replacement 0234272547 284680 Z96.652 Z47.1 [id number] E[facility] [address] [place] [address] 08/13/2024 16:28:28 08/13/2024 17:33:06 History of left total knee replacement 3443302820 441836 Z96.652 Z47.1 [id number] Emy Lora PTA [place] [address] [place] [address] 08/15/2024 13:39:23 08/18/2024 08:00:07 History of left total knee replacement 5919180563 774077 Z96.652 Z47.1 [id number] David Weiss, [facility] [address] [place] [place] [address] 08/19/2024 14:31:48 08/19/2024 15:33:18 History of left total knee replacement 1469209523 034722 Z96.652 Z47.1 Health Concerns Section Related Observation LastModified by Organization Detai ls LastModified Time None Recorded Concern Status LastModified by Organization Details LastModified Time None Recorded Advance Directives Directive None Recorded Payers Insurance Date Sequence Insurance Name Policy Number Policy Jones Covered Member ID Jones Member ID Guarantor Name 08/18/2024 1 [place] [facility] Dru Dorsey [id number] Dru Dorsey Notes Date Note Type Note Provider Name and Address Organization Details Recorded Time 08/05/2024 text/html Patient reports he is very stiff today and can barely move his leg. Emy Lora, TRANSFER MACHINE OPERATOR [address] [facility] [address], [place], [address], [facility] 08/05/2024 14:23:43 08/07/2024 text/html Patient reports falling while at the dentist yesterday. States having a small abrasion over the proximal tibia, but is able to weight bear normally. Reports that the knee is sore, but wants to try to perform PT exercises. David Weiss DPT [address], [place], [address], [facility] 08/07/2024 15:06:54 08/13/2024 text/html Patient reports he is having a bad day. David Weiss DPT [address], [place], [address], [facility] 08/14/2024 09:10:26 08/15/2024 text/html Patient continues to report he is not doing well. He has increased pain in his knee that limits his ADLs. Emy Lora, TRANSFER MACHINE OPERATOR [address], [place], [address], [facility] 08/15/2024 14:29:11 08/19/2024 text/html Patient reports that the knee is improving and less stiff feeling today. David Weiss DPT [address], [place], [address], [facility] 08/19/2024 15:28:49
== END 2025-04-29 12:02 | disposition home or self-care (01) ==
LOC: HO.HPS 10:45
PROVIDERS: PCP Registered Nurse; Visit Provider Hospitalist
DX: J44.9 Chronic obstructive pulmonary disease, unspecified (principal); F17.210 Nicotine dependence, cigarettes, uncomplicated; R91.1 Solitary pulmonary nodule; I26.93 Single subsegmental thrombotic pulmonary embolism without acute cor pulmonale; G89.12 Acute post-thoracotomy pain
CPT/HCPCS: 99214

== ENCOUNTER → 2025-04-29 10:45 | Outpatient (BNVA) | payer MEDICAID, SELFPAY | PROVIDERS: PCP Registered Nurse; Visit Provider Hospitalist | DX: R06.02 Shortness of breath (principal); R91.1 Solitary pulmonary nodule; J44.9 Chronic obstructive pulmonary disease, unspecified; F17.210 Nicotine dependence, cigarettes, uncomplicated; I26.99 Other pulmonary embolism without acute cor pulmonale; G89.12 Acute post-thoracotomy pain; I26.93 Single subsegmental thrombotic pulmonary embolism without acute cor pulmonale | CPT/HCPCS: 99212 ==

== ENCOUNTER 2025-05-15 09:24 | Outpatient (AMB) | payer MEDICAID, SELFPAY ==
--- NOTE | 2025-05-15 09:25 | A.OFFVIS_ITS ---
Vital Signs 05/15/25 09:32 Height 5 ft 8 in Weight 274 lb BMI 41.7 BP 140/72 H Blood Pressure Location Rt brachial Position Sitting Pulse 64 Pulse Source Pulse Oximeter Pulse Oximetry (%) 95 Oxygen Delivery Method Room Air Intake Visit Reasons: 6 mo f/u r/s last seen 07/24/23 Intake Note: ESTABLISHED PATIENT for re-est care. Prev mgmt of constipation + abd bloating. Chief Complaint; C.O. bloating, R side abd pain, upper and lower per pt. Pt denies any additional sx or concerns. Industrial Editor Required: No Accompanied by: Self / Same As Patient Allergies Penicillins (PENICILLINS) Allergy (Unknown, Verified 05/15/25 09:26) UNKNOWN HPI HPI 6 mo f/u r/s last seen 07/24/23: Details: LAST VISIT: Constipation GERD (gastroesophageal reflux disease) Screen for colon cancer Postprandial abdominal bloating Plan Long discussion with patient how to prep. Patient is constipated will try Linzess 290 mcg. Patient recently had surgery and did well with anesthesia. However patient has high tolerance to medications due to previous history of drug abuse. Patient currently is on methadone. Patient was encouraged to increase fluid intake and activity to promote better bowel motility. Patient will be booked today for upper endoscopy and colonoscopy. I will see patient after the procedure. He is agreeable to this plan and verbalizes understanding of instructions. He was given the opportunity to ask questions and all questions answered. ? Thank you for allowing me to participate in his care New linaclotide (Linzess) 290 mcg PO QAM 30 caps 4RF K59.00 bisacodyl (Dulcolax (bisacodyl)) take 2 tabs at noon the day before your colonoscopy 10 mg (2 x 5 mg) PO ONCE 2 tabs 0RF 1 day Z12.11 polyethylene glycol 3350 (Miralax) As directed by gastroenterology department at [facility] 238 grams PO ONCE 238 grams 0RF Z12.11 simethicone (Gas Relief (simethicone)) 125 mg PO TID-QID PRN 120 caps 2RF abdominal distention Discontinued linaclotide Discontinued Reason: Doctor's Order 145 mcg PO DAILY 30 caps 2RF TODAY'S VISIT Patient is here today for request visit. Patient is few visits in the past. Last office visit was in July of 2023. Patient was going to be sent for colonoscopy. Patient denies any issues with anesthesia except last procedure he states that he woke up in the middle of procedure. Currently on methadone. Past history drug use. Patient denies melena, hematochezia, unintentional weight loss or ribbon like stools. Patient was placed on Zepbound for weight loss. Patient denies dyspepsia, dysphagia or odynophagia. Currently is taking omeprazole, however reports that he continues to have epigastric pain and acid reflux. Feels like the medication is no longer working. Patient does admit to have occasional right upper quadrant pain. Patient admits to be very gassy. Patient eats heavy meals and large meals. Reports that he is emptying his bowels better now that he is taking Linzess. [facility] Medical History Pulmonary emboli Osteoarthritis Pleuritic chest pain Post-thoracotomy pain syndrome Asthma-COPD overlap syndrome Lung cancer (~2022) Nicotine dependence, cigarettes, uncomplicated Depression with anxiety Obesity DA (obstructive sleep apnea) Hepatitis C HLD (hyperlipidemia) Methadone maintenance therapy patient History of CVA (cerebrovascular accident) (~2008) Surgical History Hx of appendectomy History of lung surgery History of bilateral hip replacements History of carpal tunnel surgery History of left inguinal hernia repair History of esophagogastroduodenoscopy (EGD) History of colonoscopy Family History Father No problems noted. Mother Family history of high blood pressure Hx of diabetes insipidus Social History Household Members: None Housing: Apartment Do you presently have visiting nurse or other home services: Yes Alcohol intake: former Patient Tobacco Use Status: Current everyday Tobacco user Tobacco use type: Cigarette Cigarette Packs Per Day: 0.5 Cigarettes Per Day: 8 Years Smoked: (onset 13yo, 1ppd x 44yrs, now 3/4ppd, 40pyh) e-Cigarette/Vaping Use: Currently Using service: No Current occupational status: disabled Review of Systems Const Denies weight gain and Denies weight loss ENT Reports no additional complaints, Denies dysphagia and Denies odynophagia Card Reports no additional complaints Resp Reports no additional complaints GI Reports abdominal pain (RUQ), Denies belching, Denies melena, Reports bloating, Denies change in bowel habits, Reports constipation, Denies dysphagia, Denies excessive flatus, Denies dyspepsia, Reports heartburn, Denies diarrhea, Denies loose stools, Denies nausea, Denies odynophagia and Denies vomiting Reports no additional complaints Musc Reports no additional complaints Neuro Reports no additional complaints Psych Reports no additional complaints Endo Reports no additional complaints Physical Exam Vital Signs: Last Vital Signs Pulse 64 05/15/25 09:32 BP 140/72 H 05/15/25 09:32 Pulse Ox 95 05/15/25 09:32 Oxygen Delivery Method Room Air 05/15/25 09:32 BMI result Body Mass Index 41.7 Const General: healthy appearing, no acute distress and well developed Nutritional Appearance: obese Orientation/consciousness: patient oriented x3 HEENT Head: Yes normal to inspection, Yes normocephalic and Yes atraumatic Face and sinus: Yes normal facial exam Mouth: Normal oral and palatal mucosa present Throat: Yes posterior oropharynx normal, Yes tonsils normal and Yes uvula midline Eyes General: appearance normal, both eyes and all related structures Neck Neck: Yes normal visual inspection, Yes full ROM and Yes trachea midline Thyroid: Thyroid normal Resp Effort & Inspection: normal respiratory effort, able to speak in complete sentences, no tracheal deviation and symmetric chest movement Auscultation: clear to auscultation bilaterally Cardio Rate: regular rate Heart sounds: S1 normal heart sound present and S2 normal heart sound present GI Inspection: Yes normal to inspection, No distended and Yes obesity Palpation (GI): Soft to palpation, not firm, nontender and No hepatosplenomegaly present Auscultation: normal bowel sounds General: Yes no CVA tenderness Back/Spine/Pelvis Back: no CVA tenderness Skin General skin exam: elasticity normal, turgor normal and dry skin Neuro General: patient oriented x3 Psych Appearance: grossly normal Mental Status: mental status grossly normal Speech and movement: Normal speech and movement present Assessment & Plan Assessment & Plan (1) Constipation: Code(s): K59.00 - Constipation, unspecified Category: Medical Qualifiers: Constipation type: drug induced constipation Qualified Code(s): K59.03 - Drug induced constipation (2) Gastroesophageal reflux disease: Code(s): K21.9 - Gastro-esophageal reflux disease without esophagitis Qualifiers: Esophagitis presence: esophagitis presence not specified Qualified Code(s): K21.9 - Gastro-esophageal reflux disease without esophagitis (3) Encounter for screening for malignant neoplasm of colon: Code(s): Z12.11 - Encounter for screening for malignant neoplasm of colon (4) Postprandial abdominal bloating: Code(s): R14.0 - Abdominal distension (gaseous) (5) RUQ abdominal pain: Code(s): R10.11 - Right upper quadrant pain Plan Patient will stop omeprazole and start pantoprazole daily. Avoid dietary trigge rs in late night snacking. Patient was encouraged to eat smaller meals and more often. Increase fluid intake and activity to promote better bowel motility. Patient will be sent for upper endoscopy. Patient is overdue to go for colonoscopy. Denies any melena, hematochezia. No issues with anesthesia in the past, however reports waking up in the middle of procedure last that he had anesthesia. What to expect before during and after procedure discussed with patient. Stressed importance of good bowel prep and clear liquid diet day before procedure. I will see patient after the procedure, sooner on as needed basis. He is agreeable to this plan and verbalizes understanding of instructions. He was given the opportunity to ask questions the patient answered. Thank you for allowing me to participate in his care Medications: New bisacodyl (Dulcolax (bisacodyl)) take 4 tabs at noon the day before your colonoscopy 20 mg (4 x 5 mg) PO ONCE 4 tabs 0RF constipation 1 day Z12.11 - Encounter for screening for malignant neoplasm of colon simethicone 125 mg PO BID-QID PRN 120 caps 3RF abdominal distention K21.9 - Gastro-esophageal reflux disease without esophagitis polyethylene glycol 3350 (Miralax) As directed by gastroenterology department at [facility] 238 grams PO ONCE 238 grams 0RF Z12.11 - Encounter for screening for malignant neoplasm of colon pantoprazole take one tablet half an hour before breakfast 40 mg PO DAILY 30 tabs 2RF K21.9 - Gastro-esophageal reflux disease without esophagitis Coding Level of Care Code Est Pt Level 4 (40836) Complex EM visit Add On G2211 Diagnoses Drug-induced constipation K59.03 Constipation type: drug induced constipation Gastroesophageal reflux disease, unspecified whether esophagitis present K21.9 Esophagitis presence: esophagitis presence not specified Encounter for screening for malignant neoplasm of colon Z12.11 Postprandial abdominal bloating R14.0 RUQ abdominal pain R10.11 Time Spent (min) 40 Comment 25 minutes spent with patient and additional 15 minutes spent reviewing his records
[2025-05-15 09:32] VITALS: BP 140/72; PULSE 64; O2SAT 95; BMI 41.7
--- OUTSIDE RECORDS SUMMARY | 2025-05-15 09:37 | XMS_ITS | Data Portability ---
Author Organization [place] Gabe Lanier Deheather [facility], [facility] Address [address] [place] [address] Care Team Providers Care Wellness Consultant Name Role Phone HUBER BLANKENSHIP Referring Provider [phone] [facility] (DENT[facility]) Primary Care Prov ider Assessment [...] a4ajBk vP9nXo QUaueC m3YtLR FvZlgJ JJ8mAn HZtai3 3u1625 AC0Kqa 3%2BHV qeiKiQ trMwF INTERFACE [facility] [address] [facility] [address] [facility] [address], [place], [address], 07/24/2024 14:30:25 07/24/20 24 07/24/2024 XR, knee, 3 view http:/ [email or web address] ?Encry pted=s hAaTro YD8dLq bEUv6g %2BXZw aYqtaq 0bqfl% 2Fg9IQ a4ajBk vP9nXo QUaueC m3YtLR FvZlgJ JJ8mAn HZtai3 3h4516 AC0Kqa 3%2BHV qeiKiQ trMwF INTERFACE [facility] [address], [place], [address], 07/24/2024 14:30:27 Result Notes None recorded. Problems Name Problem SNOMED Code Status Onset Date Resolution Date Notes Provider Name and Address Organization Details Recorded Time History of left total knee replacemen t [id number] 105 Active 2023 Franklyn Eagle MD [address], [facility] [place], [address] , [facility] 14:40:55 Problem Notes None recorded. Procedures Surgical History Date Name Laterality Status Provider Name and Address Organization Details Recorded Time 15375 Therapeutic Exercise (1:1) completed David Weiss DPT [address] [facility], [place], [address], [facility] 08/18/2024 09:47:31 4 20103 Therapeutic Exercise (1:1) completed Emy Lora PTA [address] [facility], [place], [address], [facility] 08/15/2024 14:23:27 4 63813: Hot or Cold Pack completed Emy Lora PTA [address], [place], [address], [facility] 08/15/2024 14:28:05 4 41092: Manual therapy completed Emy Lora PTA [address], [place], [address], [facility] 08/15/2024 14:23:35 97203 Therapeutic Exercise (1:1) completed David Weiss DPT [address], [place], [address], [facility] 08/11/2024 10:52:06 4 00935 Therapeutic Exercise (1:1) completed CHADWICK AbdullahiT [address] [facility], [place], [address], [facility] 08/06/2024 13:06:24 4 41830 Therapeutic Exercise (1:1) completed Emy Lora, [employer] [address] [facility], [place], [address], [facility] 08/05/2024 14:23:00 4 22211: Hot or Cold Pack completed Emy oLra [employer] [address] [facility], [place], [address], [facility] 08/05/2024 14:23:05 4 19252: Therapeutic Activities (1:1) completed CHADWICK AbdullahiT [address] [facility], [place], [address], [facility] 07/30/2024 17:25:57 4 39672 Therapeutic Exercise (1:1) completed CHADWICK AbdullahiT [address] [facility], [place], [address], [facility] 07/30/2024 17:25:51 4 54375: Hot or Cold Pack completed David Weiss DPT [address], [place], [address], [facility] 07/29/2024 09:18:32 4 32341 Therapeutic Exercise (1:1) completed David Weiss DPT [address] [facility], [place], [address], [facility] 07/28/2024 09:09:40 4 68987: Hot or Cold Pack completed David Weiss DPT [address] [facility], [place], [address], [facility] 07/28/2024 09:09:40 4 36943 Therapeutic Exercise (1:1) completed Emy Lora [employer] [address] [facility], [place], [address], [facility] 07/23/2024 14:18:07 4 12764: Hot or Cold Pack completed Emy Lora [employer] [address], [place], [address], [facility] 07/23/2024 14:18:13 4 40752 Therapeutic Exercise (1:1) completed David Weiss DPT [address] [facility], [place], [address], [facility] 07/18/2024 14:56:57 4 63150: Hot or Cold Pack completed David Weiss DPT [address], [place], [address], [facility] 07/17/2024 09:25:22 4 94513: Gait training completed David Weiss DPT [address] [facility], [place], [address], [facility] 07/18/2024 14:57:04 4 80001 Therapeutic Exercise (1:1) completed David Weiss DPT [address], [place], [address], [facility] 07/16/2024 14:20:05 4 42789: Hot or Cold Pack completed David Weiss DPT [address] [facility], [place], [address], [facility] 07/15/2024 10:03:58 4 46815 Therapeutic Exercise (1:1) completed David Weiss DPT [address] [facility], [place], [address], [facility] 07/10/2024 11:09:13 4 33390: Hot or Cold Pack completed David Weiss DPT [address], [place], [address], [facility] 07/10/2024 11:09:13 4 67846 Therapeutic Exercise (1:1) completed Emy Lora, [employer] [address], [place], [address], [facility] 07/09/2024 14:17:25 4 11449: Hot or Cold Pack completed Emy Lora [employer] [address], [place], [address], [facility] 07/09/2024 14:19:16 4 95623 Therapeutic Exercise (1:1) completed Emy Lora, [employer] [address], [place], [address], [facility] 07/04/2024 15:12:36 4 13579: Hot or Cold Pack completed Emy Lora [employer] [address], [place], [address], [facility] 07/04/2024 15:12:41 4 94912 Therapeutic Exercise (1:1) completed Eddi Vallecillo PTA [address], [place], [address], [facility] 07/02/2024 14:27:49 4 79337: Hot or Cold Pack completed Eddi Vallecillo [employer] [address], [place], [address], [facility] 07/02/2024 14:54:49 4 63229 Therapeutic Exercise (1:1) completed David Weiss DPT [address], [place], [address], [facility] 06/27/2024 15:35:14 4 97834: Low complexity PT Eval completed David Weiss, DPT [address], [place], [address], [facility] 06/27/2024 15:34:37 4 00230 Therapeutic Exercise (1:1) completed CHADWICK AbdullahiT [address], [place], [address], [facility] 06/04/2024 13:08:24 4 15481: Low complexity PT Eval completed David Weiss, DPT [address], [place], [address], [facility] 06/04/2024 13:08:27 Imaging Results None recorded. Procedure Notes None recorded. Medical Equipment None Reported. Allergies Allergen ID Allergen Name Allergen Category Reaction Reaction Severity Criticality Documentation Date Start Date Code Code System Note Provider Name and Address Organization Details Recorded Time 26859 Product containin g penicilli n (product) medicatio n Not available Not available Not available 12/24/20232019 31851 8001 SNOMED Not Available [facility] 10:54:17 Medications Name Sig Start Date Stop [...] SNOMED-CT Code Diagnosis ICD10 Code Diagnosis Note [id number] CAMPOS Villeda [address] [place] [address] 06/03/2024 08:54:33 06/24/2024 13:05:50 Osteoarthritis of left knee joint [id number] 67345 M17.12 [id number] MD Jenni Brown 2nd floor [address] [facility] [place] [address] 06/03/2024 09:03:11 06/24/2024 13:05:40 Osteoarthritis of left knee joint 2502748225 39337 M17.12 [id number] David Weiss [facility] on [address] [place] [address] 06/04/2024 12:26:27 06/04/2024 13:20:33 Osteoarthritis of left knee joint 3953926700 67538 M17.12 [id number] David Weiss [facility] on [address] [place] [address] 06/27/2024 14:03:01 06/27/2024 14:49:48 History of left total knee replacement 6290316471 089818 Z96.652 Z47.1 [id number] HARDY Dykes 2[address] [place] [address] 06/26/2024 10:13:16 07/21/2024 14:50:44 History of left total knee replacement 8566249488 685285 Z96.723 [id number] [facility] [address] [place] [address] 07/02/2024 13:09:05 07/02/2024 16:49:14 History of left total knee replacement 9577031336 067487 Z96.652 Z47.1 [id number] [facility] [address] [place] [address] 07/04/2024 14:29:22 07/04/2024 15:58:17 History of left total knee replacement 7475327667 524330 Z96.652 Z47.1 [id number] [facility] [address] [place] [address] 07/09/2024 13:28:20 07/09/2024 14:29:46 History of left total knee replacement 7787598274 211205 Z96.652 Z47.1 [id number] [facility] [address] [place] [address] 07/11/2024 14:08:48 07/11/2024 15:42:43 History of left total knee replacement 9342307159 873030 Z96.652 Z47.1 [id number] David Weiss, [facility] [address] [place] [address] 07/16/2024 13:23:13 07/16/2024 14:25:33 History of left total knee replacement 6670346564 693155 Z96.652 Z47.1 [id number] David Weiss, DPT [facility] [address] [place] [address] 07/18/2024 13:26:10 07/18/2024 15:06:24 History of left total knee replacement 3641362519 672030 Z96.652 Z47.1 [id number] Emy Lora, [employer] [facility] [address] [place] [address] 07/23/2024 13:38:31 07/23/2024 14:36:16 History of left total knee replacement 4259316922 770866 Z96.652 Z47.1 [id number] MD Jenni Brown 2nd floor [address] [facility] [place] [address] 07/24/2024 14:13:47 08/08/2024 14:44:20 History of left total knee replacement 2733624504 114472 Z96.670 [id number] David Hadleyi, [facility]PT [facility] [address] [place] [address] 07/28/2024 15:25:42 07/28/2024 17:21:25 History of left total knee replacement 9421212092 480330 Z96.652 Z47.1 [id number] David Hadleyi, DPT [facility] [address] [place] [address] 07/30/2024 13:18:20 07/30/2024 15:20:45 History of left total knee replacement 0627623008 945195 Z96.652 Z47.1 [id number] Emy Lora, [employer] [facility] [address] [place] [address] 08/05/2024 13:40:14 08/05/2024 14:25:57 History of left total knee replacement 2803860460 106506 Z96.652 Z47.1 [id number] David Hadleyi, DPT [facility] [address] [place] [address] 08/07/2024 14:12:37 08/07/2024 15:09:39 History of left total knee replacement 8963040652 328564 Z96.652 Z47.1 [id number] Emy Lora, [employer] [facility] [address] [place] [address] 08/13/2024 16:28:28 08/13/2024 17:33:06 History of left total knee replacement 7773919719 495910 Z96.652 Z47.1 [id number] Emy Lora, LEIGH ANN [facility] on [address] [place] [address] 08/15/2024 13:39:23 08/18/2024 08:00:07 History of left total knee replacement 8250423772 474139 Z96.652 Z47.1 [id number] David Weiss DPT [facility] on [address] [place] [address] 08/19/2024 14:31:48 08/19/2024 15:33:18 History of left total knee replacement 7491411748 499500 Z96.652 Z47.1 Health Concerns Section Related Observation LastModified by Organization Detai ls LastModified Time None Recorded Concern Status LastModified by Organization Details LastModified Time None Recorded Advance Directives Directive None Recorded Payers Insurance Date Sequence Insurance Name Policy Number Policy Jones Covered Member ID Jones Member ID Guarantor Name 08/18/2024 1 [place] [facility] Dru Dorsey [id number] Dru Dorsey Notes Date Note Type Note Provider Name and Address Organization Details Recorded Time 08/05/2024 text/html Patient reports he is very stiff today and can barely move his leg. Emy Lora, [employer] [address], [place], [address], [facility] 08/05/2024 14:23:43 08/07/2024 text/html Patient reports falling while at the dentist yesterday. States having a small abrasion over the proximal tibia, but is able to weight bear normally. Reports that the knee is sore, but wants to try to perform PT exercises. David Weiss DPT [address], [place], [address], [facility] 08/07/2024 15:06:54 08/13/2024 text/html Patient reports he is having a bad day. David Weiss DPT [address], [place], [address], [facility] 08/14/2024 09:10:26 08/15/2024 text/html Patient continues to report he is not doing well. He has increased pain in his knee that limits his ADLs. Emy Lora, [employer] [address] [facility] [address], [place], [address], [facility] 08/15/2024 14:29:11 08/19/2024 text/html Patient reports that the knee is improving and less stiff feeling today. David Weiss, CHADWICKT [address] [facility] [address], [place], [address], [facility] 08/19/2024 15:28:49
--- OUTSIDE RECORDS SUMMARY | 2025-05-15 09:37 | XMS_ITS | Clinical Summary ---
Author Organization [facility] Address [address] [place] [address] Phone Care Team Providers Care Kitchen Work Supervisor Name Role Phone Morena Forte RN Primary [...] of lung cancer 2025 Assessment & Plan (05/14/2025 10:59 AM EDT): Mr. Dorsey is a 60-year-old male who had a robotic left upper lobe segmentectomy in December 2022 for a stage Ib adenocarcinoma. He received adjuvant chemotherapy with Dr. Ulloa at [facility]. The patient's most recent chest CT scan done April 2025 shows that the previously identified new groundglass opacities in the right upper lobe have resolved indicating an inflammatory/infectious process. He has a stable 10 x 7 mm nodule in the left lower lobe which had no significant FDG uptake on recent PET scan ordered by his oncologist. This nodule has been present and stable since at least 2022. He does have a 5 to 6 mm nodule in the left lower lobe that has grown since 2022, but is stable when compared to his previous chest CT. This was not FDG avid on his recent PET scan, but is also under size criteria for uptake on PET. I had a long conversation with the patient regarding this nodule. I have a moderate degree of suspicion that this could indicate a new primary lung cancer, however given its size and recent stability biopsy is not required at this point in time we can follow- up with chest CT. The patient did ask about treatment options should this be diagnosed as a lung cancer in the future, therefore I had a lengthy discussion with him regarding the possibilities of treatment which would include possible sublobar resection versus radiation. Will follow-up on the left lower lobe pulmonary nodule with a chest CT in 6 months, October 2025. The patient will have a follow-up visit in the office at that time. Assessment & Plan (02/05/2025 10:53 AM EDT): Mr. Dorsey is a 60-year-old male who had a robotic left upper lobe segmentectomy in December 2022 for a stage Ib adenocarcinoma. He completed adjuvant chemotherapy with Dr. Ulloa at [facility]. The patient's most recent surveillance chest [...] Encounters Date Type Department Care Team Description 05/14/2025 10:30 AM EDT Office Visit Thoracic Surgery - [place] [address] [facility] [address] [place] [address] Amara Castorena PA History of lung cancer (Primary Dx); Multiple pulmonary nodules 05/07/2025 7:53 AM EDT - 05/07/2025 11:59 PM EDT Hospital Encounter [facility] CT Scan [address] [place] [phone] History of lung cancer Discharge Disposition: Home or Self Care 04/16/2025 2:57 PM EDT - 04/16/2025 11:59 PM EDT Hospital Encounter [facility] PET Scan [address] [place] [phone] Non-small cell lung cancer, left (CMS/HCC V24, CMS/HCC V28) Discharge Disposition: Home or Self Care from Last 3 Months Immunizations Name Administration Dates Next Due Pfizer SARS-CoV-2 COVID-19, mRNA, LNP-S, preservative free 12/10/2020,11/19/2020 Surgical History Surgery Date Site/Laterality Comments HIP ARTHROPLASTY PROCEDURE: HISTORICAL HIP REPLACEMENT CARPAL TUNNEL RELEASE Bilateral PROCEDURE: HISTORICAL CARPAL TUNNEL REL COLONOSCOPY N/A PROCEDURE: HISTORICAL COLONOSCOPY HERNIA REPAIR PROCEDURE: HISTORICAL HERNIA REPAIR/ING APPENDECTOMY PROCEDURE: DE APPENDECTOMY Medical History Medical History Date Comments Depression with anxiety DX:Depre ssion with anxiety Viral hepatitis C without hepatic coma DX:Viral hepatitis C without hepatic coma H/O: CVA (cerebrovascular accident) DX:H/O: CVA (cerebrovascular accident) HLD (hyperlipidemia) DX:HLD (hyp erlipidemia) 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 ([facility] V24, [facility] V28) DX:Methadone maintenance th erapy patient ([facility]) Nicotine dependence DX:Nicotine dependence Obesity DX:Obesity Sleep disorder breathing DX:Slee p disorder breathing COPD (chronic obstructive pu lmonary disease) ([facility] [facility] V24, [facility] [place] V28) DX:COPD (chronic o bstructive pulmonary disease) ([facility]) Lung cancer ([facility] [place] V24, [facility] [place] V28) DX:Lung cancer ([facility]) Mild intermittent asthma, uncomplicated DX:Mild intermittent asthma, uncomplicated Family History Medical History Relation Name Comments No Known Problems Father Diabetes Mother Hypertension Mother Relation Name Status Comments Father Mother Social History Tobacco Use Types Packs/Day Years Used Date Smoking Tobacco: Some Days Cigarettes 1 47.6 Started: 10/22/1977 Smokeless Tobacco: Never Alcohol Use [...] Sign Reading Time Taken Comments Blood Pressure 161/85 05/14/2025 10:32 AM EDT Pulse 63 05/14/2025 10:32 AM EDT Temperature 36.6 C (97.9 F) 05/14/2025 10:32 AM EDT Respiratory Rate 16 02/05/2025 10:27 AM EDT Oxygen Saturation 97% 05/14/2025 10:32 AM EDT Inhaled Oxygen Concentration - - Weight 126 kg (276 lb 11.2 oz) 05/14/2025 10:32 AM EDT Height 172.7 cm (5' 8 ) 05/14/2025 10:32 AM EDT Body Mass Index 42.07 05/14/2025 10:32 AM EDT Plan of Treatment Health Maintenance [...] 11/20/2023 Social Influencers of Health Screening 11/20/2023 Depression Screening 10/22/2024 Hepatitis B Vaccines (1 of 3 - Risk 3-dose series) 2025 RSV Immunization Adult Patients (1 - Risk 60-74 years 1-dose series) 2025 Diabetes: Annual Urine Albumin-Creatinine Ratio (uACR) 04/17/2025 Diabetes: Blood Sugar Contro l Test (HGBA1C) 05/07/2025 11/07/2024 Influenza Vaccine (#1) 2025 08/07/2015 Diabetes: Annual GFR (Glomerular Filtration Rate) 11/07/2025 [...] Diagnosis Comments CT CHEST WO CONTRAST Routine 05/07/2025 8:03 AM EDT History of lung cancer PET CT SKULL TO MID THIGH INITIAL Routine 04/16/2025 5:20 PM EDT Non-small cell lung cancer, left (CMS/HCC V24, CMS/HCC V28) from Last 3 Months Results * CT Chest wo Contrast (05/07/2025 8:03 AM EDT) Anatomical Region Laterality Modality Body Computed Tomogra phy 05/11/2025 9:59 AM EDT Impressions 05/11/2025 10:10 AM EDT Interval resolution of several groundglass opacities in the right upper lobe seen on the 01/23/[address] These were presumably inflammatory. Postsurgical changes of a left upper lobe wedge resection with 2 stable left lower lobe nodules. -------- FINAL REPORT -------- Dictated By: Adalberto Maldonado Dictated Date: 05/11/2025 09:59 ET Assigned Physician: Adalberto Maldonado Reviewed and Electronically Signed By: Adalberto Maldonado Signed Date: 05/11/2025 10:10 ET Workstation ID: [id number] Transcribed By: Self Edit Transcribed Date: 05/11/2025 09:59 ET Narrative 05/11/2025 10:10 AM EDT PROCEDURE: CT of the chest without intravenous contrast. TECHNIQUE: CT of the chest without intravenous contrast administration. Coronal and sagittal reformats and MIP reconstructions were created. Dose length product: 1373 mGy-cm. HISTORY: GGN, history of lung cancer. Followup. COMPARISON: 01/28/2025. FINDINGS: LUNGS/PLEURA: The central airways are clear and normal in caliber. Stable post wedge resection findings in the posterior left upper lobe. Bandlike opacities in the lingula and anterolateral left lower lobe suggestive of scarring. Stable 10 x 7 mm nodule in the posterior medial left lower lobe, series 4 image 189. Stable 5 mm left lower lobe nodule, series 4 image 152. Several right upper lobe groundglass nodules/opacities seen on the 01/23/2025 study are no longer present. Mild osteophyte associated scarring in the medial right lung. No pleural effusion or pneumothorax. MEDIASTINUM/GINA: There are stable irregular low-attenuation structures, possible locules of fluid, in the low anterior mediastinum . No mediastinal mass or lymphadenopathy. No appreciable hilar lymphadenopathy on limited noncontrast evaluation. VASCULATURE: Normal caliber pulmonary arteries. Mild atherosclerotic calcifications of the aorta and great vessels. CARDIAC: Normal heart size. Moderate coronary artery calcification. CHEST WALL: Right chest wall single lumen port with the catheter tip in the SVC. No axillary or supraclavicular lymphadenopathy. LIMITED ABDOMEN: Small layering gallstones. BONES: Degenerative changes of the spine with findings of DISH. Mild degenerative changes of the shoulders. Healed posttraumatic deformity of a few left lateral ribs. Procedure Note Adalberto Maldonado MD - 05/11/2025 PROCEDURE: CT of the chest without intravenous contrast. TECHNIQUE: CT of the chest without intravenous contrast administration.Coronal and sagittal reformats and MIP reconstructions were created. Dose length product: 1373 mGy-cm. HISTORY: GGN, history of lung cancer. Followup. COMPARISON: 01/28/2025. FINDINGS: LUNGS/PLEURA: The central airways are clear and normal in caliber. Stablepost wedge resection findings in the posterior left upper lobe. Bandlikeopacities in the lingula and anterolateral left lower lobe suggestive ofscarring. Stable 10 x 7 mm nodule in the posterior medial left lowerlobe, series 4 image 189. Stable 5 mm left lower lobe nodule, series 4image 152. Several right upper lobe groundglass nodules/opacities seen onthe 01/23/2025 study are no longer present. Mild osteophyte associatedscarring in the medial right lung. No pleural effusion or pneumothorax. MEDIASTINUM/GINA: There are stable irregular low-attenuation structures,possible locules of fluid, in the low anterior mediastinum . Nomediastinal mass or lymphadenopathy. No appreciable hilar lymphadenopathyon limited noncontrast evaluation. VASCULATURE: Normal caliber pulmonary arteries. Mild atheroscleroticcalcifications of the aorta and great vessels. CARDIAC: Normal heart size. Moderate coronary artery calcification. CHEST WALL: Right chest wall single lumen port with the catheter tip inthe SVC. No axillary or supraclavicular lymphadenopathy. LIMITED ABDOMEN: Small layering gallstones. BONES: Degenerative changes of the spine with findings of DISH. Milddegenerative changes of the shoulders. Healed posttraumatic deformity ofa few left lateral ribs. IMPRESSION: Interval resolution of several groundglass opacities in the right upperlobe seen on the 01/23/[address] These were presumablyinflammatory. Postsurgical changes of a left upper lobe wedge resection with 2 stableleft lower lobe nodules. -------- FINAL REPORT -------- Dictated By: Adalberto Maldonado Dictated Date: 05/11/2025 09:59 ET Assigned Physician: Adalberto Maldonado Reviewed and Electronically Signed By: Adalberto Maldonado Signed Date: 05/11/2025 10:10 ET Workstation ID: [id number] Transcribed By: Self Edit Transcribed Date: 05/11/2025 09:59 ET Amara MALDONADO IMG CT PROCEDURES Final Resul t * PET CT Skull to Mid Thigh [...] Signed Date: 04/27/2025 11:28 ET Workstation ID: [id number] Transcribed By: Self Edit Transcribed Date: 04/27/2025 [...] Procedure Note Ana Paula Gifford MD - 07/07/2025 INDICATION: NON-SMALL CELL LUNG CANCER. 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
--- OUTSIDE RECORDS SUMMARY | 2025-05-15 09:37 | XMS_ITS | Encounter Summary ---
Author Organization [email or web address] Address [address] [facility] [address] [place] [address] Care Team Providers Care Contact Finger Assembler Name Role Phone Morena Forte Primary Care Provider [phone] Jeremiah Humphrey Unavailable Raj Galvin MD Unavailable [phone] Unavailable Reason for Visit * Reason Comments Med Refill Encounter Details Date Type Department Care Team ([facility] st Contact Info) Description 03/04/2025 Refill [facility] MED & PEDS [address] [place], [place] [phone] Morena Forte FNP [address] [place], [place] [phone] Lower extremity edema Social History Tobacco Use [...] Care Team (Late st Contact Info) Description 06/12/2025 1:45 PM EDT Office Visit [facility] MED & PEDS [address] [place] [address] Morena Forte FNP [address] [place] [address] documented as of this encounter Goals Goal [...] documented as of this encounter Care Teams Contact Finger Assembler Relationship Specialty Start Date End Date Morena Forte FNP [address] [place] [phone] PCP - General Family Medicine 09/27/22 Jeremiah Humphrey Community Health Worker 04/18/24 Raj Galvin MD [address] [facility] [address] [place] [address] Nephrology 08/25/24 E[address] [place] [address] [place] [phone] Thoracic Surgery 08/25/24 documented as of this encounter
== END 2025-05-15 10:08 | disposition home or self-care (01) ==
LOC: HO.HGI 09:24
PROVIDERS: PCP Registered Nurse; Visit Provider Nurse Practitioner Family
DX: K59.03 Drug induced constipation (principal); K21.9 Gastro-esophageal reflux disease without esophagitis; Z12.11 Encounter for screening for malignant neoplasm of colon; R14.0 Abdominal distension (gaseous); R10.11 Right upper quadrant pain
CPT/HCPCS: 99214

== ENCOUNTER → 2025-05-15 09:24 | Outpatient (BNVA) | payer MEDICAID, SELFPAY | PROVIDERS: PCP Registered Nurse; Visit Provider Nurse Practitioner Family | DX: Z01.818 Encounter for other preprocedural examination (principal); K59.03 Drug induced constipation; K21.9 Gastro-esophageal reflux disease without esophagitis; R10.13 Epigastric pain; R10.11 Right upper quadrant pain; R14.0 Abdominal distension (gaseous); Z79.899 Other long term (current) drug therapy | CPT/HCPCS: 99212 ==

== ENCOUNTER 2025-07-21 10:19 | Outpatient (REF) | payer MEDICAID, SELFPAY ==
--- NOTE | ~2025-07-21 | CT_ITS ---
EXAMINATION: CT ANGIOGRAM CHEST CLINICAL INFORMATION: Shortness of breath, hx PE and malignancy COMPARISON: February 21, 2023 TECHNIQUE: Multiple axial images were obtained through the chest after the administration of 85 mL of Omnipaque 350 intravenous contrast. Extensive vascular post-processing including two-dimensional and three-dimensional reformatted images were created and reviewed on an independent workstation. This CT examination was performed using dose optimization techniques as appropriate, variously including the following: *Automated exposure control *Adjustment of mA and/or kV according to patient size (this includes techniques or standardized protocols for targeted exams where dose is matched to indication/reason for exam; i.e. extremities or head) *Use of iterative reconstruction technique FINDINGS: QUALITY OF STUDY/CONTRAST BOLUS: Suboptimal with incomplete opacification of tertiary branches. PULMONARY ARTERIES: No central pulmonary emboli. Emboli of peripheral vessels cannot be excluded with any degree of certainty. THORACIC AORTA: There is mild atherosclerotic desiccation without aneurysm or dissection. LUNGS AND PLEURA: There is a solid nodule density in the medial posterior base of the left lower lobe. On coronal image 128/163 it measures 9 x 16 mm. Lungs are clear otherwise. There is no pleural effusion or pleural thickening. MEDIASTINUM: Again seen is a tubular density in the epicardial fat anterior to the right heart border that measures 14 x 63 mm (CC by transverse) previously measuring 14 x 17 mm. It measured -5 Hounsfield units and could be fluid in nature. No other mass or adenopathy is seen. CORONARY ARTERY CALCIFICATION: Present CHEST WALL/AXILLA: No axillary or internal mammary lymphadenopathy. UPPER ABDOMEN: High density stones layer in the gallbladder near the neck. BONES: Extensive bridging and nonbridging osteophytes are present involving anterior thoracic spine. CT/CT angio chest PE protocol IMPRESSION: No pulmonary embolus identified. There is a 9 x 16 mm nodular density in the medial basal left lower lobe. This probably represents atelectasis, but a pulmonary nodule is not ruled out. Follow-up CT chest in 3 months without contrast. There is a tubular density in the epicardial fat anterior to the right heart margin that was present on the prior examination. It measures fluid density. Etiology is uncertain. Cholelithiasis. Fleischner guidelines were followed. Electronically signed by: Umesh Magaña MD 07/21/2025 12:27 PM EDT
--- OUTSIDE RECORDS SUMMARY | 2025-07-21 11:29 | XMS_ITS | Clinical Summary ---
Author Organization [facility] Address [address] [place] [address] Phone Care Team Providers Care Relocation Commissioner Name Role Phone Morena Forte RN Primary [...] received adjuvant chemotherapy with Dr. Ulloa at [facility]. The patient's most recent chest CT scan [...] completed adjuvant chemotherapy with Dr. Ulloa at [facility]. The patient's most recent surveillance chest CT [...] AM EDT Office Visit Thoracic Surgery - [place] [address] [facility] [address] [place] [phone] Amara Castorena PA History of lung cancer (Primary Dx); Multiple pulmonary nodules 05/07/2025 7:53 AM EDT - 05/07/2025 11:59 PM EDT Hospital Encounter [facility] CT Scan [address] [place] [phone] History of lung cancer Discharge Disposition: Home or Self Care from Last 3 Months Immunizations Immunization Administration Dates Next Due Pfizer SARS-CoV-2 COVID-19, mRNA, LNP-S, preservative free 12/10/2020,11/19/2020 Surgical History Surgery Date Site/Laterality Comments HIP ARTHROPLASTY PROCEDURE: HISTORICAL HIP REPLACEMENT CARPAL TUNNEL RELEASE Bilateral PROCEDURE: HISTORICAL CARPAL TUNNEL REL COLONOSCOPY N/A PROCEDURE: HISTORICAL COLONOSCOPY HERNIA REPAIR PROCEDURE: HISTORICAL HERNIA REPAIR/ING APPENDECTOMY PROCEDURE: NC APPENDECTOMY Medical History Medical History Date Comments Depression with anxiety DX:Depre ssion with anxiety Viral hepatitis C without hepatic coma DX:Viral hepatitis C without hepatic coma H/O: CVA (cerebrovascular accident) DX:H/O: CVA (cerebrovascular accident) HLD (hyperlipidemia) DX:HLD (hyp erlipidemia) 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) Nicotine dependence DX:Nicotine dependence Obesity DX:Obesity Sleep disorder breathing DX:Slee p disorder breathing COPD (chronic obstructive pu lmonary disease) ([facility] V24, [facility] V28) DX:COPD (chronic o bstructive pulmonary disease) ([facility]) Lung cancer ([facility] V24, [facility] V28) DX:Lung cancer (HCC) Mild intermittent asthma, uncomplicated DX:Mild intermittent asthma, uncomplicated Family History Medical History Relation Name Comments No Known Problems Father Diabetes Mother Hypertension Mother Relation Name Status Comments Father Mother Social History Tobacco Use Types Packs/Day Years Used Date Smoking Tobacco: Some Days Cigarettes 1 47.7 Started: 10/22/1977 Smokeless Tobacco: Never Alcohol Use [...] Health Maintenance Due Date Last Done Comments Colorectal Cancer Screening: Colonoscopy 1965 Diabetes: Annual Foot Exam 1975 Diabetes: Annual Retina Eye Exam 1975 Hepatitis A Vaccines (1 of 2 - Risk 2-dose series) 02/05/1984 Zoster Vaccines (1 of 2) 02/05/1984 COVID-19 Vaccine (3 - Pfizer risk series) 01/07/2021 12/10/2020, 11/19/2020 HIV Screening 11/20/2023 Hepatitis C Screening 11/20/2023 [...] Vaccine: 50+ Years (3 of 3 - PCV20 or PCV21) 07/29/2026 07/29/2021, 07/29/2021 Cholesterol [...] 8:03 AM EDT History of lung cancer from Last [...] Signed Date: 05/11/2025 10:10 ET Workstation ID: [id number] Transcribed By: Self Edit Transcribed Date: 05/11/2025 [...] Signed Date: 05/11/2025 10:10 ET Workstation ID: [id number] Transcribed By: Self Edit Transcribed Date: 05/11/2025 09:59 ET Amara MALDONADO IMG CT PROCEDURES Final Resul t from Last 3 Months [place] Advance Directives Documents on File Type Date Recorded 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
--- OUTSIDE RECORDS SUMMARY | 2025-07-21 11:29 | XMS_ITS | Encounter Summary ---
Author Organization [employer] Address [address] [facility] 7t [place] [address] Care Team Providers Care Messenger Floorperson Name Role Phone Morena Forte Primary Care Provider [phone] Jeremiah Humphrey Unavailable Raj Galvin MD Unavailable [phone] Unavailable Reason for Visit * Reason Comments Med Refill Encounter Details Date Type Department Care Team ([facility] st Contact Info) Description 03/04/2025 Refill [facility] MED & PEDS [address] [place], [place] [phone] Morena Forte FNP [address] [place], [place] [phone] Lower extremity edema Social History Tobacco Use [...] Care Team (Late st Contact Info) Description 08/24/2025 11:15 AM EST Office Visit [facility] MED & PEDS [address] [place] [address] Morena Forte FNP [address] [place] [address] documented as of this encounter Goals Goal [...] documented as of this encounter Care Teams Messenger Floorperson Relationship Specialty Start Date End Date Morena Forte FNP [address] [place] [address] PCP - General Family Medicine 09/27/22 Jeremiah Humphrey Community Health Worker 04/18/24 Raj Galvin MD [address] [phone] Nephrology 08/25/24 Ely Mesa [address] [place] [phone] Thoracic Surgery 08/25/24 documented as of this encounter
--- OUTSIDE RECORDS SUMMARY | 2025-07-21 11:29 | XMS_ITS | Encounter Summary ---
Author Organization [employer] Address [address] [facility] [address] [place] [address] Care Team Providers Care Director Of Strategic Communications Name Role Phone Morena Forte Primary Care Provider [phone] Jeremiah Humphrey Unavailable Raj Galvin MD Unavailable [address] [place] Unavailable Encounter Details Date Type Department Care Team (Late st Contact Info) Description 05/12/2025 Orders Only [facility] MED & PEDS [address] [place] [address] Provider, MD Kelvin Social History Tobacco Use [...] t he electric, gas, oil or water SLID threatened to shut off services in your [...] Upcoming Encounters Date Type Department Care Team ([facility] Contact Info) Description 08/24/2025 11:15 AM EST Office Visit [facility] MED & PEDS [address] [place] [address] Morena Forte FNP [address] [place] [address] documented as of this encounter Goals Goal Patient Goal Type Associated Problems Recent Progress Patient-Stated? Author Blood Pressure < 140/90 Blood Pressure 148/70( 025 9:52 AM EDT) No Eve Oliveira, PharmD documented as of this encounter Procedures Procedure Name Priority Date/Time Associated Diagnosis Comments CT CHEST WO CONTRAST Routine 05/07/2025 9:39 AM EDT documented in this encounter Results * CT Chest w/o Contrast (05/07/2025 9:39 AM EDT) Anatomical Region Laterality Modality Body, Chest Computed Tomogra phy us Historical Provider MD GOMEZ CT PROCEDURES Final R esult documented in this encounter Visit Diagnoses Not on filedocumented in this encounter Additional Health Concerns Assessment Noted Time PHQ-9 Depression Total Score: 8 06/30/20 24 11:12 AM EDT documented as of this encounter Care Teams Director Of Strategic Communications Relationship Specialty Start Date End Date Morena Forte FNP [address] [place] [address] PCP - General Family Medicine 09/27/22 Jeremiah Humphrey Community Health Worker 04/18/24 Raj Galvin MD [address] [address] Nephrology 08/25/24 Ely Mesa [address] [place] [phone] Thoracic Surgery 08/25/24 documented as of this encounter
--- OUTSIDE RECORDS SUMMARY | 2025-07-21 11:29 | XMS_ITS | Clinical Summary ---
Author Organization [employer] Address 75 [facility] 7t [place] [address] Care Team Providers Care Manager Access Name Role Phone Morena Forte Primary Care Provider [phone] Jeremiah Humphrey Unavailable Raj Galvin MD Unavailable [phone] Ely Mesa Unavailable Allergies Active Allergy Reactions [...] DIRECTED 30 patch 3 12/11/19 24 Active celecoxib (CeleBREX) 200 MG capsule Take 1 capsule by mouth Once per day. 06/10/20 24 Active omeprazole (PriLOSEC) [address] capsule Take 1 capsule by mouth before breakfast. Do not crush or chew. Active traZODone (Desyrel) 100 MG tablet Take by mouth if needed at bedtime for sleep. 1 to 2 tablets Active Umeclidinium [place] (Incruse Ellipta) 62.5 MCG/ACT aerosol powder Inhale Once per day. 1 inhalation Active linaCLOtide (Linzess) 290 MCG capsule Take 1 capsule by mouth before breakfast. Do not crush or chew. Active Multiple Vitamin (Daily-Anu) tablet TAKE 1 TABLET BY MOUTH DAILY IN THE MORNING WITH FOOD 90 tablet 3 12/11/19 25 Active furosemide (Lasix) 20 MG tabletIndicat ions:Lower extremity edema TAKE 1 TABLET BY MOUTH EVERY MORNING , MAY USE 2ND DOSE NEEDED FOR SWELLING 60 tablet 1 06/26/20 25 Active gabapentin (Neurontin) 400 MG capsule Take 1 capsule (400 mg) by mouth 2 times daily. 60 capsule 2 06/26/20 25 Active Tirzepatide-W eight Management (Zepbound) 5 MG/0.5ML solution auto-injector Inject 0.5 mL (5 mg) under the skin 1 (one) time per week. 2 mL 3 07/13/20 25 Active Zepbound 5 MG/0.5ML solution auto-injector INJECT 5MG UNDER THE SKIN ONCE EVERY WEEK 2 mL 1 05/19/20 25 025 Discontinued(Re order (will not trigger notification to Pharmacy)) furosemide (Lasix) 20 MG tabletIndicat ions:Lower extremity edema TAKE 1 TABLET BY MOUTH EVERY MORNING , MAY USE 2ND DOSE NEEDED FOR SWELLING 30 tablet 06/02/20 25 025 Discontinued gabapentin (Neurontin) 400 MG capsule TAKE 1 CAPSULE BY MOUTH TWICE A DAY 60 capsule 06/02/20 25 025 Discontinued(Re order (will not trigger notification to Pharmacy)) Active Problems Problem Noted Date Diagnosed Date Pulmonary nodule, left 08/25/2024 Overview (08/25/2024): - Followed by Dr. Mesa - CT Chest 08/08/24: stable 4 mm nodule LLL Microscopic hematuria 03/11/2024 Overview (03/11/2024): [facility] with [facility] - Dr. Guerrero 02/21/24: US renal bilat unremarkable Primary osteoarthritis of left knee 12/28/2023 Assessment & Plan (08/31/2024 8:51 PM EST): S/p left knee TKA with Dr. Eagle (SULAIMAN) at [facility] in May 2024 Previously doing well [...] knee TKA with Dr. Eagle (SULAIMAN) at [facility] in May 2024 Recovery going well, [...] minute. Pending plan and further information from SULAIMAN. Healthcare maintenance 11/11/2023 Overview (03/10/2024): -Colonoscopy: followed by [facility] - booked for upper endoscopy and colonoscopy per consult note Jul 2023 -Lung CA: (+) hx lung CA - CT chest January 2024 Lung RADS 1, due 1 year Persistent proteinuria 11/11/2023 Overview (08/25/2024): Following with [facility] - Dr. Raj Galvin - for proteinuria and microhematuria Imaging studies and urine cytology WNL Suspect proteinuria 2/2 obesity and lung CA Assessment & Plan (03/10/2024 7:25 AM EDT): Followed by [facility] for proteinuria and hematuira. 02/21/24: US [...] Referrals: PS&S sent 09/06/23 (PT1 requested 11/11/23) [facility] sent 03/11/24 (w/ PT1) Assessment & Plan (07/20/2024 8:16 PM EDT): - Following with Inter[facility] Pain Management - Dr. Alejandro Segura. Plan for trial of LESI L3-4 after recovery from TKA (approx Jul 2024) Assessment & Plan (09/06/2023 7:04 PM EST): -Previous XR 2018 with degenerative changes lumbar spine -Pt experiencing [...] -Referrals: PS&S sent 09/06/23 Asthma-COPD overlap syndrome (CMS/HCC) 3 Overview (07/20/2024): Following with [facility] - Dr. 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 Kendrick, current regimen: Duloxetine 60 mg qam Trazodone 50 mg at bedtime Bupropion XL 300 mg qam Declines interest in Med Box at this time, interested in having meds sent to [facility] Assessment & Plan (05/20/2023 12:19 PM EDT): Following with Dr. Kendrick, current regimen: Duloxetine 60 mg qam Trazodone 50 mg at bedtime Bupropion XL 300 mg qam Declines interest in Med Box at this time, interested in having meds sent to [facility] Assessment & Plan (04/11/2023 2:16 PM EDT): Following with Dr. Kendrick Message sent to her office to discuss returning to previous med regimen as had worked better for pt. Requested refills sent to [facility] pharmacy as pt planning to transfer prescriptions here to start Med Box. Malignant neoplasm of upper lobe of left lung Overview (04/11/2023): 1.1 x 1.2cm lesion in PAXTON noted on LDCT 10/27/22 (hx of cigarette smoking) S/p PAXTON segmentectomy December 2022 at [facility] - resected nodular density revealed invasive adenocarcinoma, tumor size 2 x 1.5 x 1.1 cm Currently s/p surgery, initiated chemotherapy 04/09/23 Followed by [facility]c: Dr. Ulloa, and [facility] - Dr. Rodarte Assessment & Plan (04/11/2023 2:13 PM EDT): DME request for Ensure (Vivian & Vanilla flavor BID) on 04/11/23 Assessment & Plan (04/09/2023 7:38 PM EDT): 1.1 x 1.2cm lesion in PAXTON noted on LDCT 10/27/22 (hx of cigarette smoking) S/p PAXTON segmentectomy December 2022 at [facility] - resected nodular density revealed invasive adenocarcinoma, tumor size 2 x 1.5 x 1.1 cm Currently s/p surgery, with the plan to start chemotherapy Followed by [facility]c: Dr. Ulloa, and [facility] - Dr. Rodarte Assessment & Plan (03/19/2023 6:18 PM EDT): 1.1 x 1.2cm lesion in PAXTON noted on LDCT 10/27/22 (hx of cigarette smoking) S/p PAXTON segmentectomy December 2022 at [facility] - resected nodular density revealed invasive adenocarcinoma, tumor size 2 x 1.5 x 1.1 cm Currently s/p surgery, with the plan to start chemotherapy Followed by [facility]: Dr. Ulloa, and [facility] - Dr. Rodarte Pulmonary emboli (CMS/HCC) 03/19/2023 Assessment & Plan (03/11/2024 11:21 AM EDT): Identified during ED visit 02/22/23 Bilateral multiple pulmonary emboli (primarily left) Eliquis managed by [facility] - discontinued December 2023 Assessment & Plan (05/14/2023 10:09 AM EDT): Identified during ED visit 02/22/23 Bilateral multiple pulmonary emboli (primarily left) Discharged on Eliquis, further rx to be managed by [facility] (although last prescription sent in through PCP office) Assessment & Plan (04/09/2023 7:48 PM EDT): Identified during ED visit 02/22/23 Bilateral multiple pulmonary emboli (primarily left) Discharged on Eliquis, further rx to be managed by [facility] Assessment & Plan (03/19/2023 6:21 PM EDT): Identified during ED visit 02/22/23 Bilateral multiple pulmonary emboli (primarily left) Discharged on Eliquis, further rx to be managed by [facility] ED precautions reviewed Anomalous origin of right coronary artery 2022 Overview (01/11/2025): Following with [facility]-Dr. Jaime Consult December 2024: Hx of SOB that led to echo, stress test, and coronary CTA. It revealed anomalous coronary artery. He was referred to the adult congenital heart disease clinic at [facility] but was not recommended any interventions. [...] BP elevated in office Initially referred to [facility], subsequently referred to [facility] disease clinic Referral back to [facility] placed 03/19/23 due to elevated BP readings Continues with furosemide, may consider addition of second agent if home BP readings elevated as well Referral to Cards re-placed on 12/28/23 ED/urgent care precautions Assessment & Plan (06/10/2023 8:26 AM EDT): BP elevated in office Initially referred to [facility], subsequently referred to [facility] [place] [facility] disease clinic Referral back to [facility] cardiology placed 03/19/23 due to elevated BP readings Continues with furosemide, may consider addition of second agent if home BP readings elevated as well Assessment & Plan (03/19/2023 6:31 PM EDT): Initially referred to [facility], subsequently referred to [facility] adult congential heart disease clinic Referral back to [facility] cardiology placed 03/19/23 due to elevated BP readings Continues with furosemide 20mg daily History of lobectomy of lung 02/11/2023 Overview (02/11/2023): -Left upper lobectomy at [facility] December 2022 Tobacco use 12/11/2022 Overview (03/11/2024): [...] as pharmacomtherapy, [facility] smoking cessation group, and [facility] pharmacy smoking cessation clinic -Interested in NRT patches as monotherapy, sent to pharmacy Assessment & Plan (11/11/2023 12:57 PM EST): -Continues with smoking cessation efforts, currently approx 10 cigg/day -Encouraged smoking cessation resources such as pharmacomtherapy, [facility] smoking cessation group, and [facility] pharmacy smoking cessation clinic -Interested in NRT patches as monotherapy, sent to pharmacy Assessment & Plan (09/06/2023 7:06 PM EST): -Continues with smoking cessation efforts, currently approx 6 cigg/day -Interested in Chantix, sent to pharmacy Assessment & Plan (06/10/2023 8:23 AM EDT): -Continues with smoking cessation efforts, currently approx 8 cigg/day -Interested in Chantix, spoke with [facility] pharmacy and verbal order given for starter pack of varenicline Assessment & Plan (12/11/2022 8:31 AM EST): -Continues with smoking cessation efforts, down to 6-7 cigg/day -Discussed smoking cessation resources available at [facility] such as smoking cessation clinic History of right hip replacement 12/07/2022 Heroin dependence (CMS/HCC) 12/07/2022 Overview (06/06/2023): Followed by [facility] Continues with Methadone - currently split dose to assist with pain: 90mg in the morning and 40mg in the evening in remission Hepatic fibrosis 12/07/2022 Pain of both hip joints 12/07/2022 Viral hepatitis C 12/07/2022 Resolved Problems Problem Noted Date Diagnosed Date Resolved Date Lung cancer ([facility]/HCC) 06/06/20232022 Non-small cell cancer of left lung ([facility]/HCC) 09/06/2023 Pleuritic chest pain 06/06/2023 023 Left upper lobe pulmonary nodule 06/06/2023 09/06/2023 SOB (shortness of breath) 06/06/2023 Mild intermittent asthma 12/07/2022 Encounters Date Type Department Care Team Description 07/13/2025 Refill [facility] MED [facility] PEDS [address] [place] [address] Morena Forte FNP 07/08/2025 Refill [facility] MED & PEDS [address] [place] [address] Morena Forte FNP 07/07/2025 Telephone [facility] MED & PED[facility] [address] [place] [address] Morena Forte FNP Call Back Request 07/07/2025 Telephone [facility] [address] [place] [address] Morena Forte FNP Med Refill 07/07/2025 Refill [facility] MEDICINE [address] [place] [address] Morena Forte FNP 06/26/2025 Refill [facility] MED[facility]INE [address] [place] [address] Morena Forte FNP Lower extremity edema 06/12/2025 Telephone [facility] MED & PEDS [address] [place] [address] Morena Forte FNP No Show 06/12/2025 Telephone [facility] MED [facility] [address] [place] [address] Morena Forte FNP televisit 06/12/2025 Travel 06/12/2025 Telephone [facility] MED & P[facility] [address] [place] [address] Morena Forte FNP Appointment Request 06/11/2025 Telephone [facility] MED [facility] [address] [place] [address] Morena Forte FNP Chart Prep 06/01/2025 Refill [facility] MED[facility]INE [address] [place] [address] Morena Forte FNP Lower extremity edema 05/18/2025 Refill [facility] MED[facility]INE [address] [place] [address] Morena Forte FNP 05/12/2025 Orders Only [facility] [address] [place] [address] ProviderKelvin MD 04/29/2025 Refill [facility] MEDICINE [address] [place] [address] Dany Lawrence MD Lower extremity edema 04/29/2025 Orders Only [facility] [address] [place], [place] [phone] Linda Ulloa MD from Last 3 Months Immunizations Immunization Administration Dates Next Due Influenza, Injectable, MDCK, preservative free 1 Influenza, Unspecified 08/07/2015 Pfizer Covid-19 Vaccine 12+ 12/10/2020, Pneumococcal Conjugate PCV 13 07/29/2021 Pneumococcal Polysaccharide PPSV23 07/29/2021 SARS-CoV-2, Unspecified 12/10/2020,11/19/2020 Tdap 09/14/2020,03/12/2015 Social History Tobacco Use Types [...] 69 01/09/2025 9:52 AM EDT Temperature 37 C (98.6 F) 01/09/2025 9:52 AM EDT Respiratory Rate 24 01/09/2025 9:52 AM EDT Oxygen Saturation 98% 01/09/2025 9:52 AM EDT Inhaled Oxygen Concentration - - Weight 127 kg (281 lb) 01/09/2025 9:52 AM EDT Height 165.1 cm (5' 5 ) 01/09/2025 9:52 AM EDT Body Mass Index 46.76 01/09/2025 9:52 AM EDT Plan of Treatment Upcoming Encounters Date Type Department Care Team ([facility] st Contact Info) Description 08/24/2025 11:15 AM EST Office Visit [facility] [address] [place] [address] Morena Forte, SONAR WATCHSTANDER [address] [place] [address] Health Maintenance Due Date Last Done Comments CT Colonography 1965 Colonoscopy 1965 Colorectal Cancer Screening 1965 FIT DNA/Cologuard 1965 FIT 1965 FOBT 1965 Sigmoidoscopy 1965 Disability Screening 1965 Hepatitis A Vaccines (1 of 2 - Risk 2-dose series) 02/05/1984 Zoster Vaccines (1 of 2) 2015 Hepatitis B Vaccines (1 of 3 - Risk 3-dose series) 2025 RSV Patients and Patients Aged 60 years or older (1 - Risk 60-74 years 1-dose series) 2025 COVID-19 Vaccine ( season) 2025 12/10/2020, 12/10/2020, 11/19/2020, Additional history exists Influenza Vaccine (#1) 2025 08/07/2015, 2014 Depression Screening 06/30/2025 06/30/2024, 06/30/20 24 Alcohol/Substance Use Screening 08/25/2025 08/25/2024 Diabetes: Hemoglobin A1C 11/07/2025 11/07/2024, 02/2 04/2020 SDOH Screening 11/19/2025 11/19/2024 Tobacco Screening 01/09/2026 01/09/2025 Pneumococcal Vaccine: 50+ Years (3 of 3 - PCV20 or PCV21) 07/29/2026 07/29/2021, 07/29/2021 Lipid Panel 11/07/2029 11/07/2024, 06/08/2023 DTaP/Tdap/Td Vaccines (3 - Td or Tdap) 09/14/2030 09/14/2020, 03/12/2015 HIV Screening [...] WO CONTRAST Routine 05/07/2025 9:39 AM EDT HEMOGLOBIN A1C Routine 11/07/2024 4:09 PM EST Severe obesity (CMS/HCC) LIPID PANEL, STANDARD Routine 11/07/2024 4:09 PM EST Severe obesity (CMS/HCC) ZZZ HISTORICAL HIV AB/AG Routine 12/05/2019 1:56 PM EST from Last 3 Months or Most Recently Relevant to Health Maintenance Results * CT Chest w/o Contrast (05/07/2025 9:39 AM EDT) Anatomical Region Laterality Modality Body, Chest Computed Tomogra phy us Historical Provider MD GOMEZ CT PROCEDURES Final R esult * Hemoglobin A1c (11/07/2024 4:09 PM EST) Hemoglobin A1c 5.7 <6.0 % [facility] Comment:Hemoglobin A1C Refer ence Range Adults: 4.8 - 6.0 % Non diabetic: < 6.0 % Goal: < 7.0 %Additional Action Suggested: > 8.0 %Note: Hemoglobin A1c results are invalid for patients with abnormal amounts of HbF. Blood transfusions may impact the HbA1c concentration in the patient sample. Estimated Average Glucose 117 mg/dL [facility] Comment:eAG = Estimated ave rage glucose which is %A1C expressed asaverage glucose, using the formula of the A8W-LfiohkuUezifoo Glucose study (ADAG), Diabetes Care, Vol.31,#8,May. 2007 Blood Venous blood specimen / Unknown 11/07/2024 4:09 PM EST 11/07/2024 5:50 PM EST Morena Forte SONAR WATCHSTANDER LAB BLOOD ORDERABLES Final Res ult Performing Organization Address [facility] Co de Phone Number [facility] [address] [place] [phone] * Lipid Panel, Standard (11/07/2024 4:09 PM EST) Triglycerides 74 <150 mg/dL [facility] Comment:Desirable Triglyceri de: less than 150 mg/dLBorderline High Triglyceride 150-199 mg/dLHigh Triglyceride: 200-499 mg/dLVery High Triglyceride: greater than or equal to 5OO mg/dL Cholesterol 150 <200 mg/dL [facility] Comment:Desirable Cholestero l: less than 200 mg/dLBorderline High Cholesterol: 200-239 mg/dLHigh Cholesterol: greater than 239 mg/dL LDL Cholesterol Calculated 65 <100 mg/dL [facility] Comment:Desirable LDL: less than 100 mg/dLNear Optimal/Above Optimal LDL: 110- 129 mg/dLBorderline High LDL: 130-159 mg/dLHigh LDL: 160-189 mg/dLVery High LDL: greater than or equal to 190 mg/dL HDL Cholesterol 71 >40 mg/dL [facility] Comment:Desirable HDL: great er than 40 mg/dL Note: This HDL assay may give artificially low results in patients with liver disease. Blood Venous blood specimen / Unknown 11/07/2024 4:09 PM EST 11/07/2024 5:50 PM EST us Morena Forte SONAR WATCHSTANDER LAB BLOOD ORDERABLES Final Res ult Performing Organization Address [facility]/ZIP Co de Phone Number [facility] [address] [place] [phone] [phone] * HIV AB/AG (12/05/2019 1:56 PM EST) HIV AG/AB NONREACTIVE [facility] Comment: HIV-1 p24 Ag and/or HIV-1/HIV-2 Ab not detected. A test result that is nonreactive does not exclude the possibility of exposure to or infection with HIV-1 and/or HIV-2. Nonreactive results in this assay for individuals with prior exposure to HIV-1 and/or HIV-2 may be due to antigen and antibody levels that are below the limit of detection of this assay. The [employer] HIV Ag/Ab Combo assay result and supplemental assay results should be interpreted in conjunction with the patient's clinical presentation, history and other laboratory results. If the results are inconsistent with clinical evidence, additional testing is suggested to confirm the result. 12/05/2019 1:56 PM EST us Yves Martin MD HISTORICAL/NON ORDERABLE LABS Fi nal Result [facility] [address] from Last 3 Months or Most Recently Relevant to Health Maintenance Insurance [facility] C[facility] Care Teams Manager Access Relationship Specialty Start Date End Date Morena Forte FNP [address] [place] [phone] PCP - General Family Medicine 09/27/22 Jeremiah Humphrey Community Health Worker 04/18/24 Raj Galvin MD [address] [place] [phone] Nephrology 08/25/24 Ely Mesa [address] [place] [id number] Thoracic Surgery 08/25/24
--- OUTSIDE RECORDS SUMMARY | 2025-07-21 11:29 | XMS_ITS | Encounter Summary ---
Author Organization [email or web address] Address [address] [facility] [address]t [place] [address] Care Team Providers Care Staff Veterinarian Name Role Phone CyndiroyerMorena Primary Care Provider [phone] Jeremiah Humphrey Unavailable Raj Galvin MD Unavailable [phone] Ely Mesa Unavailable Encounter Details Date Type Department Care Team (Late st Contact Info) Description 04/29/2025 Orders Only [facility] [address] [place] [address] Linda Ulloa MD [address] [place] [phone] Social History Tobacco Use Types Packs/Day Years [...] Description 08/24/2025 11:15 AM EST Office Visit [facility] MED & PEDS [address] [place] [address] Morena Forte, TERI [address] [place] [address] documented as of this encounter Goals Goal Patient Goal Type Associated Problems Recent Progress Patient-Stated? Author Blood Pressure < 140/90 Blood Pressure 148/70( 025 9:52 AM EDT) No Eve Oliveira, RomeroD documented as of this encounter Procedures Procedure Name Priority Date/Time Associated Diagnosis Comments PET/CT BONE SKULL BASE TO MID THIGH Routine 04/16/2025 11:40 AM EDT documented in this encounter Results * PET/CT Bone Skull Base to Mid Thigh (04/16/2025 11:40 AM EDT) Anatomical Region Laterality Modality Body Computed Tomogra phy Linda Ulloa MD IMG CT PROCEDURES Final Result documented in this encounter Visit Diagnoses Not on filedocumented in this encounter Additional Health Concerns Assessment Noted Time PHQ-9 Depression Total Score: 8 06/30/20 24 11:12 AM EDT documented as of this encounter Care Teams Staff Veterinarian Relationship Specialty Start Date End Date Morena Forte FNP [address] [place] [address] PCP - General Family Medicine 09/27/22 Jeremiah Humphrey Community Health Worker 04/18/24 Raj Galvin MD [address] [facility] [address] [place] [phone] Nephrology 08/25/24 Ely Mesa [address] [place] [phone] Thoracic Surgery 08/25/24 documented as of this encounter
--- OUTSIDE RECORDS SUMMARY | 2025-07-21 11:30 | XMS_ITS | Encounter Summary ---
Author Organization [employer] Address 75 [facility] [address]t [place] [address] Care Team Providers Care Double Bass Player Name Role Phone Morena Forte Primary Care Provider [phone] Jeremiah Humphrey Unavailable Raj Galvin MD Unavailable [phone] Ely Mesa Unavailable Reason for Visit * Reason Onset Date Comments Prior Authorization 01/01/2025 Encounter Details Date Type Department Care Team (Late st Contact Info) Description 01/01/2025 Telephone [facility] MEDICINE [address] [place] [address] Morena Forte FNP [address] [place], [place] [phone] Prior Authorization Social History Tobacco Use Types [...] Description 08/24/2025 11:15 AM EST Office Visit [facility] MED & PEDS [address] [place] [address] Morena Forte FNP [address] [place] [address] documented as of this encounter Goals Goal Patient Goal Type Associated Problems Recent Progress Patient-Stated? Author Blood Pressure < 140/90 Blood Pressure 148/70( 025 9:52 AM EDT) Eve Bailey, RomeroD documented as of this encounter Visit Diagnoses Diagnosis Severe obesity (CMS/HCC) (HCC)- Primary Morbid obesity documented in this encounter Additional Health Concerns Assessment Noted Time PHQ-9 Depression Total Score: 8 06/30/20 24 11:12 AM EDT documented as of this encounter Care Teams Double Bass Player Relationship Specialty Start Date End Date Morena Forte FNP [address] [place] [address] PCP - General Family Medicine 09/27/22 Jeremiah Humphrey Community Health Worker 04/18/24 Raj Galvin MD 100 [facility] [address] [place] [phone] Nephrology 08/25/24 Ely Mesa [address] [place] [phone] Thoracic Surgery 08/25/24 documented as of this encounter
--- OUTSIDE RECORDS SUMMARY | 2025-07-21 11:30 | XMS_ITS | Encounter Summary ---
Author Organization [employer] Address 75 [facility] 7t [place] [address] Care Team Providers Care Cook Specialty Name Role Phone Morena Forte Primary Care Provider [phone] Jereimah Humphrey Unavailable Raj Galvin MD Unavailable [phone] E[address] Mesa Unavailable Reason for Visit * Reason Comments Med Refill Encounter Details Date Type Department Care Team ([facility] st Contact Info) Description 04/22/2024 Refill [facility] CHC MED & PEDS [address] [place], [place] [phone] Morena Forte FNP [address] [place], [place] [phone] Social History Tobacco Use Types Packs/Day Years [...] medications are prescribed by his psych provider [place]. Pt states he has called their office multiple times with no answer. Pt reports he is concern that he might relapse and will like to find out if PCP can send a one time refill to the pharmacy. CM reached out to [facility], spoke with Dulce who states pt [...] provided on [facility] located in [facility] of [facility]. Patient provided with after-hours line for [facility], , which offer nighttime triage service and option to transfer to associate professor of education provider if needed. Patient verbalizes understanding, and able to repeat back to speech writer. A follow up call will be placed within 10 days, patient agrees with plan. documented in this encounter Plan of Treatment Upcoming Encounters Date Type Department Care Team ([facility] st Contact Info) Description 08/24/2025 11:15 AM EST Office Visit [facility] MED & PEDS [address] [place] [address] Morena Forte FNP [address] [place] [address] documented as of this encounter Goals Goal [...] documented as of this encounter Care Teams Cook Specialty Relationship Specialty Start Date End Date Morena Forte FNP 230 [place] [address] PCP - General Family Medicine 09/27/22 Jeremiah Humphrey Community Health Worker 04/18/24 Raj Galvin MD [address] [address] Nephrology 08/25/24 Ely Mesa [address] [place] [address] Thoracic Surgery 08/25/24 documented as of this encounter
--- OUTSIDE RECORDS SUMMARY | 2025-07-21 11:30 | XMS_ITS | Encounter Summary ---
Author Organization [employer] Address 75 [facility] 7t [place] [address] Care Team Providers Care Corporate Lawyer Name Role Phone Morena Forte Primary Care Provider [phone] Jeremiah Humphrey Unavailable Raj Galvin MD Unavailable [phone] E[address] Unavailable Reason for Visit * Reason Onset Date Comments PT1 06/06/2023 Encounter Details Date Type Department Care Team (Late st Contact Info) Description 06/06/2023 Telephone [facility] MEDICINE 230 [place] [address] Morena Forte FNP [address] [place], [place] [phone] PT1 Social History Tobacco Use Types Packs/Day [...] AM EDT documented as of this encounter Functional Status * Over the past 2 weeks, how often have you been bothered by any of the following problems? Question Answer Date of Assessment Author Patient Health Questionnaire-2 Score 0 06/08/2023 1:16 PM Lani Pedraza MA * Over the past 2 weeks, how often have you been bothered by any of the following problems? Question Answer Date of Assessment Author Little interest or pleasure in doing things Not at all 06/08/2023 1:16 PM TOYAT Lani Luo MA Feeling down, depressed, or hopeless Not at all 06/08/2023 1:16 PM TOYAT Lani Luo MA Trouble falling or staying asleep, or sleeping too much Not at all 06/08/2023 1:16 PM EDT Lani Ricketts MA Feeling tired or having little energy Not at all 06/08/2023 1:16 PM TOYAT Lani Luo MA Poor appetite or overeating Not at all 06/08/2023 1: 16 PM TOYAT Lani Luo MA Feeling bad about yourself - or that you are a failure or have let yourself or your family down Not at all 06/08/2023 1:16 PM Lani Pedraza MA Trouble concentrating on things, such as reading the newspaper or watching television Not at all 06/08/2023 1:16 PM TOYAT Lani Luo MA Moving or speaking so slowly that other people could have noticed? Or the opposite - being so fidgety or restless that you have been moving around a lot more than usual. Not at all 06/08/2023 1:16 PM EDT Lani Erickson MA Thoughts that you would be better off or hurting yourself in some way Not at all 06/08/2023 1:16 PM Lani Pedraza MA Patient Health Questionnaire-9 Score 0 06/08/2023 1:16 PM Lani Pedraza MA documented as of this encounter Miscellaneous Notes * Telephone Encounter - Lorraine Galindo 06/06/2023 3:48 PM EDT Tc from pt requesting a PT1 Date: 07/31/23 Time: 3:00 PM address: [address], [place] [address] specialty: eye care # visits: n/a driver courier: no Wheelchair: no documented in this encounter Plan of Treatment Upcoming Encounters Date Type Department Care Team (Late st Contact Info) Description 08/24/2025 11:15 AM EST Office Visit [facility] CHC MED & PEDS [address] [place], [place] [phone] Morena Forte FNP 505 [place], [place] [phone] documented as of this encounter Goals Goal [...] documented as of this encounter Care Teams Corporate Lawyer Relationship Specialty Start Date End Date Morena Forte FNP [address] [place] [address] PCP - General Family Medicine 09/27/22 Jeremiah Humphrey Community Health Worker 04/18/24 Raj Galvin MD [address] [address] Nephrology 08/25/24 Ely Mesa [address] [place] [address] Thoracic Surgery 08/25/24 documented as of this encounter
--- OUTSIDE RECORDS SUMMARY | 2025-07-21 11:30 | XMS_ITS | Encounter Summary ---
Author Organization [employer] Address 75 [facility] 7t [place] [address] Care Team Providers Care Applications Scientist Name Role Phone Morena Forte Primary Care Provider [phone] Jeremiah Humphrey Unavailable Raj Galvin MD Unavailable [phone] E[address] Unavailable Reason for Visit * Reason Onset Date Comments PT1 03/11/2025 Encounter Details Date Type Department Care Team (Late st Contact Info) Description 03/11/2025 Telephone [facility] MEDICINE 230 [place] [address] Morena Forte FNP [address] [place], [place] [phone] PT1 Social History Tobacco Use Types Packs/Day [...] encounter Miscellaneous Notes * Telephone Encounter - Stevan Godwin - 04/03/2025 2:26 PM EDT Tc from pt requesting to modify PT1 , pt has a new orange picker address [address] [place] [address]. Contact pt at [phone] * Telephone Encounter - Cris Sweeney - 03/11/2025 8:41 AM EDT Patient calling requesting PT1 Home Address verified: Y/N: Yes Provider name or facility name: [address] [place] [address] - [facility] Escort needed: Y/N: No Do you have a wheelchair: No If yes- Manual or electric: N/A Visits: (3x monthly) Patient calling requesting PT1 Home Address verified: Y/N: Yes Provider name or facility name: [address] [place] [address] Escort needed: Y/N: No Do you have a wheelchair: Y/N: No If yes- Manual or electric: N/A Visits: (3x monthly) documented in this encounter Plan of Treatment Upcoming Encounters Date Type Department Care Team (Late st Contact Info) Description 08/24/2025 11:15 AM EST Office Visit [facility] CHC MED & PEDS 505 [place], [place] [phone] Morena Forte FNP 505 [place] [address] documented as of this encounter Goals Goal [...] documented as of this encounter Care Teams Applications Scientist Relationship Specialty Start Date End Date Morena Forte FNP [address] [place] [address] PCP - General Family Medicine 09/27/22 Jeremiah Humphrey Community Health Worker 04/18/24 Raj Galvin MD 100 [facility] [address] [place] [address] Nephrology 08/25/24 Ely Mesa [address] [place] [address] Thoracic Surgery 08/25/24 documented as of this encounter
--- OUTSIDE RECORDS SUMMARY | 2025-07-21 11:30 | XMS_ITS | Encounter Summary ---
Author Organization [employer] Address 75 [facility] 7t [place] [address] Care Team Providers Care Rn Transport Name Role Phone Morena Forte Primary Care Provider [phone] Jeremiah Humphrey Unavailable Raj Galvin MD Unavailable [phone] E[address] Unavailable Reason for Visit * Reason Comments Med Refill Encounter Details Date Type Department Care Team ([facility] st Contact Info) Description 07/08/2025 Refill [facility] CHC MED & PEDS 505 [place], [place] [phone] Morena Forte FNP 505 [place], [place] [phone] Social History Tobacco Use Types Packs/Day Years [...] Upcoming Encounters Date Type Department Care Team ([facility] st Contact Info) Description 08/24/2025 11:15 AM EST Office Visit [facility] MED & PEDS 505 [place] [address] Morena Forte, TERI 505 [place] [address] documented as of this encounter Goals Goal Patient Goal Type Associated Problems Recent Progress Patient-Stated? Author Blood Pressure < 140/90 Blood Pressure 148/70( 025 9:52 AM EDT) No RiversEve Regalado, PharmD documented as of this encounter Visit Diagnoses Not on filedocumented in this encounter Additional Health Concerns Assessment Noted Time PHQ-9 Depression Total Score: 8 06/30/20 11:12 AM EDT documented as of this encounter Care Teams Rn Transport Relationship Specialty Start Date End Date Morena Forte FNP [address] [place] [address] PCP - General Family Medicine 09/27/22 Jeremiah Humphrey Community Health Worker 04/18/24 Raj Galvin MD [address] [place] [address] Nephrology 08/25/24 Ely Mesa [address] [place] [address] Thoracic Surgery 08/25/24 documented as of this encounter
--- OUTSIDE RECORDS SUMMARY | 2025-07-21 11:30 | XMS_ITS | Encounter Summary ---
Author Organization [employer] Address [address] [facility] [address] 7t [place] [address] Care Team Providers Care Tram Inspector Name Role Phone Morena Forte Primary Care Provider [phone] Jeremiah Humphrey Unavailable Raj Galvin MD Unavailable [phone] E[address] Unavailable Encounter Details Date Type Department Care Team (Late st Contact Info) Description 01/26/2025 Orders Only [facility] CHC MED & PEDS [address] [place] [address] Provider, MD Kelvin Social History Tobacco Use [...] ([facility] st Contact Info) Description 08/24/2025 11:15 AM EST Office Visit [facility] MED & PEDS 505 [place] [address] Morena Forte FNP 505 [place] [address] documented as of this encounter Goals Goal [...] AM EDT Narrative 01/28/2025 1:03 PM EDT [address] [address] [address] Scan Report Signed Patient: Dru Dorsey MR#: [id number] 1 : 1965 Acct:[id number] Age/Sex: 59 / M ADM Date: 01/28/25 Loc: HO.CT Attending Dr: Linda Ulloa MD Ordering Physician: Linda Ulloa MD Date of Service: 01/28/25 Procedure(s): CT chest w IV con Accession Number(s): [id number] cc: Linda Ulloa MD; Morena Forte [facility] Report Number: [id number]: Total DLP = 220.00 mGy-cm EXAMINATION: CT [...] Hermann Jimenez MD 01/28/2025 01:01 PM EDT RP Dictated By: Hermann Jimenez MD Signed By: <Electronically signed by Hermann Jimenez MD in OV> 01/28/25 1301 DD/ 1149 TD/TT: 01/28/25 1200 Director Enterprise Data Architecture: Procedure Note Donotuseinterpreter, Image - 01/28/[address] [place] [address] [address] Scan Report Signed Patient: Dru Dorsey [facility]#: [id number] 1 : 1965Acct:[id number] Age/Sex: 59 / MADM Date: 01/28/25 Loc: HO.CT Attending Dr: Linda Ulloa MD Ordering Physician: Linda Ulloa MD Date of Service: 01/28/25 Procedure(s): CT chest w IV con Accession Number(s): [id number] cc: Linda Ulloa MD; Morena Forte [facility] Report Number: [id number]: Total DLP = 220.00 mGy-cm EXAMINATION: CT [...] Hermann Jimenez MD 01/28/2025 01:01 PM EDT RP Dictated By: Hermann Jimenez MD Signed By: <Electronically signed by Hermann Jimenez MD in OV> 01/28/25 1301 DD/ 1149 TD/TT: 01/28/25 1200 Director Enterprise Data Architecture: [facility] External Provider IMG CT PROCEDURES Final Result * CT Chest w/o Contrast (01/23/2025 12:33 PM EDT) Anatomical Region Laterality Modality Body, Chest Computed Tomogra phy Historical Provider IMLo CT PROCEDURES Final R esult documented in this encounter Visit Diagnoses Not on filedocumented in this encounter Additional Health Concerns Assessment Noted Time PHQ-9 Depression Total Score: 8 06/30/20 24 11:12 AM EDT documented as of this encounter Care Teams Tram Inspector Relationship Specialty Start Date End Date Morena Forte FNP [address] [place] [address] PCP - General Family Medicine 09/27/22 Jeremiah Humphrey Community Health Worker 04/18/24 Raj Galvin MD [address] [address] Nephrology 08/25/24 Ely Mesa [address] [place] [address] Thoracic Surgery 08/25/24 documented as of this encounter
--- OUTSIDE RECORDS SUMMARY | 2025-07-21 11:30 | XMS_ITS | Encounter Summary ---
Author Organization [employer] Address 75 [facility] 7t [place] [address] Care Team Providers Care Sieve Grader Tender Name Role Phone Morena Forte Primary Care Provider [phone] Jeremiah Humphrey Unavailable Raj Galvin MD Unavailable [phone] E[address]a Unavailable Reason for Visit * Reason Comments Med Refill Encounter Details Date Type Department Care Team ([facility] st Contact Info) Description 2025 Refill [facility] CHC MED & PEDS 505 [place], [place] [phone] Morena Forte FNP 505 [place], [place] [phone] Lower extremity edema Social History Tobacco Use [...] Description 08/24/2025 11:15 AM EST Office Visit [facility] MED & PEDS 505 [place] [address] Morena Forte FNP 505 [place] [address] documented as of this encounter Goals Goal [...] documented as of this encounter Care Teams Sieve Grader Tender Relationship Specialty Start Date End Date Morena Forte FNP 230 [place] [address] PCP - General Family Medicine 09/27/22 Jeremiah Humphrey Community Health Worker 04/18/24 Raj Galvin MD [address] [address] Nephrology 08/25/24 Ely Mesa [address] [place] [address] Thoracic Surgery 08/25/24 documented as of this encounter
--- OUTSIDE RECORDS SUMMARY | 2025-07-21 11:30 | XMS_ITS | Encounter Summary ---
Author Organization [employer] Address 75 [facility] 7t [place] [address] Care Team Providers Care Silo Worker Name Role Phone Morena Forte Primary Care Provider Jeremiah Humphrey Unavailable Raj Galvin MD Unavailable [phone] E[address] Unavailable Reason for Visit * Reason Onset Date Comments pt1 12/20/2022 Encounter Details Date Type Department Care Team (Late st Contact Info) Description 12/20/2022 Telephone [facility] MEDICINE 230 [place] [address] Morena Forte FNP [address] [place], [place] [phone] pt1 Social History Tobacco Use Types Packs/Day [...] / denial letter via mail. PT-1 Request [id number] Pending - [facility] [address] [facility] [address] * Telephone Encounter - Dami Nam - 12/20/2022 1:54 PM EST Tc from pt requesting pt1 Location: [facility] 299 [facility] [address], [place] [address] Specialty: left lung surgery Time:9: 30 am, 9 am, 6 am Date:01/02/23, 01/08/23, 01/09/23 Smoked Meat Preparer: no wheelchair accessible : n/a Please contact pt at [phone] documented in this encounter Plan of Treatment Upcoming Encounters Date Type Department Care Team (Late st Contact Info) Description 08/24/2025 11:15 AM EST Office Visit [facility] CHC MED & PEDS 505 [place], [place] [phone] Morena Forte FNP 505 [place] [address] documented as of this encounter Visit Diagnoses Not on filedocumented in this encounter Care Teams Silo Worker Relationship Specialty Start Date End Date Morena Forte FNP 230 [place] [address] PCP - General Family Medicine 09/27/22 Jeremiah Humphrey Community Health Worker 04/18/24 Raj Galvin MD [address] [place] [address] Nephrology 08/25/24 Ely Mesa [address] [place], [place] [phone] Thoracic Surgery 08/25/24 documented as of this encounter
--- OUTSIDE RECORDS SUMMARY | 2025-07-21 11:30 | XMS_ITS | Encounter Summary ---
Author Organization [employer] Address 75 [facility] 7t [place] [address] Care Team Providers Care Tow Picker Name Role Phone Morena Forte Primary Care Provider [phone] Jeremiah Humphrey Unavailable Raj Galvin MD Unavailable [phone] E[address] Mesa Unavailable Reason for Visit * Reason Onset Date Comments pt1 12/19/2022 Encounter Details Date Type Department Care Team (Late st Contact Info) Description 12/19/2022 Telephone [facility] MEDICINE 230 [place] [address] Morena Forte FNP [address] [place], [place] [phone] pt1 Social History Tobacco Use Types Packs/Day [...] being picked up. Please contact pt at [phone] documented in this encounter Plan of Treatment Upcoming Encounters Date Type Department Care Team (Late st Contact Info) Description 08/24/2025 11:15 AM EST Office Visit [facility] CHC MED & PEDS 505 [place], [place] [phone] Morena Forte FNP 505 [place], [place] [phone] documented as of this encounter Visit Diagnoses Not on filedocumented in this encounter Care Teams Tow Picker Relationship Specialty Start Date End Date Morena Forte FNP [address] [place] [address] PCP - General Family Medicine 09/27/22 Jeremiah Humphrey Community Health Worker 04/18/24 Raj Galvin MD 100 [facility] 200 [place] [address] Nephrology 08/25/24 Ely Mesa [address] [place] [address] Thoracic Surgery 08/25/24 documented as of this encounter
--- OUTSIDE RECORDS SUMMARY | 2025-07-21 11:30 | XMS_ITS | Encounter Summary ---
Author Organization [employer] Address 75 [facility] 7t [place] [address] Care Team Providers Care Oncology Radiation Physician Name Role Phone Morena Forte Primary Care Provider [phone] Jeremiah Humphrey Unavailable Raj Galvin MD Unavailable [phone] E[address] Mesa Unavailable Reason for Visit * Reason Onset Date Comments Nurse Triage 11/22/2023 Encounter Details Date Type Department Care Team (Late st Contact Info) Description 11/22/2023 Telephone [facility] MEDICINE 230 [place] [address] Morena Forte FNP [address] [place], [place] [phone] Nurse Triage Social History Tobacco Use Types [...] Description 08/24/2025 11:15 AM EST Office Visit [facility] MED & PEDS 505 [place] [address] Morena Forte, TERI 505 [place] [address] documented as of this encounter Goals Goal [...] documented as of this encounter Care Teams Oncology Radiation Physician Relationship Specialty Start Date End Date Morena Forte FNP 230 [place] [address] PCP - General Family Medicine 09/27/22 Jeremiah Humphrey Community Health Worker 04/18/24 Raj Galvin MD [address] [phone] Nephrology 08/25/24 Ely Mesa [address] [place] [address] Thoracic Surgery 08/25/24 documented as of this encounter
--- OUTSIDE RECORDS SUMMARY | 2025-07-21 11:30 | XMS_ITS | Encounter Summary ---
Author Organization [employer] Address 75 [facility] 7t [place] [address] Care Team Providers Care Laborer Demolition Name Role Phone Morena Forte Primary Care Provider [phone] Jeremiah Humphrey Unavailable Raj Galvin MD Unavailable [phone] E[address] Mesa Unavailable Reason for Visit * Reason Onset Date Comments PT1 11/26/2024 Encounter Details Date Type Department Care Team (Late st Contact Info) Description 11/26/2024 Telephone [facility] MEDICINE 230 [place] [address] Morena Forte FNP [address] [place], [place] [phone] PT1 Social History Tobacco Use Types Packs/Day [...] 11/26/2024 9:44 AM EST Patient calling requesting PTDecember 09, 1:00PM Home Address verified: Y/N: Yes Provider name or facility name: [address] [address]. Escort needed: Y/N: No Do you have a wheelchair: Y/N: No (cane) If yes- Manual or electric: N/A Visits: (2x monthly) documented in this encounter Plan of Treatment Upcoming Encounters Date Type Department Care Team (Late st Contact Info) Description 08/24/2025 11:15 AM EST Office Visit [facility] MED & PEDS [address] [place] [address] Morena Forte FNP [address] [place] [address] documented as of this encounter Goals Goal [...] documented as of this encounter Care Teams Laborer Demolition Relationship Specialty Start Date End Date Morena Forte FNP [address] [place] [address] PCP - General Family Medicine 09/27/22 Jeremiah Humphrey Community Health Worker 04/18/24 Raj Galvin MD [address] [address] Nephrology 08/25/24 E[address] Mesa [address] [place] [address] Thoracic Surgery 08/25/24 documented as of this encounter
--- OUTSIDE RECORDS SUMMARY | 2025-07-21 11:30 | XMS_ITS | Encounter Summary ---
Author Organization [employer] Address 75 [facility] 7t [place] [address] Care Team Providers Care Wardrobe Technician Name Role Phone Morena Forte Primary Care Provider [phone] Jeremiah Humphrey Unavailable Raj Galvin MD Unavailable [phone] E[address] Mesa Unavailable Reason for Visit * Reason Onset Date Comments PT1 03/24/2024 Encounter Details Date Type Department Care Team (Late st Contact Info) Description 03/24/2024 Telephone [facility] MEDICINE 230 [place] [address] Morena Forte FNP [address] [place], [place] [phone] PT1 Social History Tobacco Use Types Packs/Day [...] name: Hemant Gary DPM Podiatry Facility Address: [address] [place] [address] Escort needed: Y/N: No Do you have a wheelchair: Y/N: No Cane If yes- Manual or electric: n/a Visits: n/a documented in this encounter Plan of Treatment Upcoming Encounters Date Type Department Care Team (Late st Contact Info) Description 08/24/2025 11:15 AM EST Office Visit [facility] CHC MED & PEDS 505 [place] [address] Morena Forte FNP 505 [place] [address] documented as of this encounter Goals Goal [...] documented as of this encounter Care Teams Wardrobe Technician Relationship Specialty Start Date End Date Morena Forte FNP 230 [place] [address] PCP - General Family Medicine 09/27/22 Jeremiah Humphrey Community Health Worker 04/18/24 Raj Galvin MD 100 [facility] 200 [place] [address] Nephrology 08/25/24 Ely Mesa [address] [place] [address] Thoracic Surgery 08/25/24 documented as of this encounter
--- OUTSIDE RECORDS SUMMARY | 2025-07-21 11:30 | XMS_ITS | Encounter Summary ---
Author Organization [employer] Address 75 [facility] 7t [place] [address] Care Team Providers Care Light Fixture Servicer Name Role Phone Morena Forte Primary Care Provider [phone] Jeremiah Humphrey Unavailable Raj Galvin MD Unavailable [phone] Ely Mesa Unavailable Reason for Visit * Reason Onset Date Comments Nurse Triage 11/11/2024 Encounter Details Date Type Department Care Team (Late st Contact Info) Description 11/11/2024 Telephone [facility] MEDICINE 230 [place] [address] Morena Forte FNP [address] [place] [address] Nurse Triage Social History Tobacco Use Types [...] is your housing situation today? I have raabella orozco 08/06/[address] you [...] assessment. Pt states that he is in [facility] due to the pain increasing. RN advised pt to call [facility] when he is discharge and if [...] pt re: triage. Pt was seen at [facility] ED last month and had follow [...] states that he was not able to fish bait picker antibiotic until yesterday but has since been [...] can't walk) The caller accepted this outcome. [phone] documented in this encounter Plan of Treatment Upcoming Encounters Date Type Department Care Team (Late st Contact Info) Description 08/24/2025 11:15 AM EST Office Visit [facility] MED & PEDS [address] [place] [address] Morena Forte FNP [address] [place] [address] documented as of this encounter Goals Goal [...] documented as of this encounter Care Teams Light Fixture Servicer Relationship Specialty Start Date End Date Morena Forte FNP [address] [place] [address] PCP - General Family Medicine 09/27/22 Jeremiah Humphrey Community Health Worker 04/18/24 Raj Galvin MD [address] [address] Nephrology 08/25/24 Ely Mesa [address] [place] [address] Thoracic Surgery 08/25/24 documented as of this encounter
--- OUTSIDE RECORDS SUMMARY | 2025-07-21 11:30 | XMS_ITS | Encounter Summary ---
Author Organization [employer] Address 75 [facility] 7t [place] [address] Care Team Providers Care Emergency Medicine Physician Name Role Phone Morena Forte Primary Care Provider [phone] Jeremiah Humphrey Unavailable Raj Galvin MD Unavailable [phone] Ely Mesa Unavailable Reason for Visit * Reason Onset Date Comments PT1 05/29/2023 Encounter Details Date Type Department Care Team (Late st Contact Info) Description 05/29/2023 Telephone [facility] MEDICINE 230 [place] [address] Morena Forte FNP [address] [place], [place] [phone] PT1 Social History Tobacco Use Types Packs/Day [...] Time: 11 am Visits: Address: [place] [address] Facility: Wheel Chair: n/a Bail Bond Agent Needed: no *Patient states PCP needs to request for patient to only get picked up in a van due to his hip and unable to fit comfortably in a sedan. Patient states prior PCP had one in place but it has . PT1 Address verified Date: 06/19/23 Time: 11:30 am Visits: Address: [place] [address] Facility: Wheel Chair: n/a Bail Bond Agent Needed: no documented in this encounter Plan of Treatment Upcoming Encounters Date Type Department Care Team (Late st Contact Info) Description 08/24/2025 11:15 AM EST Office Visit [facility] MED & PEDS 505 [place] [address] Morena Forte FNP 505 [place] [address] documented as of this encounter Visit Diagnoses Not on filedocumented in this encounter Additional Health Concerns Assessment Noted Time PHQ-9 Depression Total Score: 16 023 9:44 AM EDT documented as of this encounter Care Teams Emergency Medicine Physician Relationship Specialty Start Date End Date Morena Forte FNP [address] [place] [address] PCP - General Family Medicine 09/27/22 Jeremiah Humphrey Community Health Worker 04/18/24 Raj Galvin MD 100 [facility] [address] [address] Nephrology 08/25/24 Ely Mesa [address] [place] [address] Thoracic Surgery 08/25/24 documented as of this encounter
--- OUTSIDE RECORDS SUMMARY | 2025-07-21 11:30 | XMS_ITS | Encounter Summary ---
Author Organization [facility] Address 75 [facility] 7t [place] [address] Care Team Providers Care Strategic Partnership Representative Name Role Phone Morena Forte Primary Care Provider [phone] Jeremiah Humphrey Unavailable Raj Galvin MD Unavailable [phone] Ely Mesa Unavailable Reason for Visit * Reason Comments Med Refill Encounter Details Date Type Department Care Team (Late st Contact Info) Description 05/13/2024 Refill [facility] MEDICINE 230 [place] [address] Morena Forte FNP [address] [place], [place] [phone] Social History Tobacco Use Types Packs/Day Years [...] Description 08/24/2025 11:15 AM EST Office Visit [facility] MED & PEDS 505 [place] [address] Morena Forte FNP 505 [place] [address] documented as of this encounter Goals Goal [...] documented as of this encounter Care Teams Strategic Partnership Representative Relationship Specialty Start Date End Date Morena Forte FNP 230 [place] [address] PCP - General Family Medicine 09/27/22 Jeremiah Humphrey Community Health Worker 04/18/24 Raj Galvin MD 100 [facility] 200 [place] [phone] Nephrology 08/25/24 Ely Mesa [address] [place] [phone] Thoracic Surgery 08/25/24 documented as of this encounter
--- OUTSIDE RECORDS SUMMARY | 2025-07-21 11:30 | XMS_ITS | Encounter Summary ---
Author Organization [employer] Address 75 [facility] 7t [place] [address] Care Team Providers Care Orientation And Mobility Specialist Name Role Phone Morena Forte Primary Care Provider [phone] Jeremiah Humphrey Unavailable Raj Galvin MD Unavailable [phone] Ely Mesa Unavailable Encounter Details Date Type Department Care Team (Late st Contact Info) Description 02/15/2023 Telephone [facility] MEDICINE 230 [place] [address] Morena Forte FNP [address] [place], [place] [phone] Social History Tobacco Use Types Packs/Day Years [...] Description 08/24/2025 11:15 AM EST Office Visit [facility] MED & PEDS 505 [place], [place] [phone] Morena Forte FNP 505 [place] [address] documented as of this encounter Visit Diagnoses Not on filedocumented in this encounter Care Teams Orientation And Mobility Specialist Relationship Specialty Start Date End Date Morena Forte FNP 230 [place] [address] PCP - General Family Medicine 09/27/22 Jeremiah Humphrey Community Health Worker 04/18/24 Raj Galvin MD 100 [facility] 200 [place] [phone] Nephrology 08/25/24 Ely Mesa [address] [place] [address] Thoracic Surgery 08/25/24 documented as of this encounter
--- OUTSIDE RECORDS SUMMARY | 2025-07-21 11:30 | XMS_ITS | Encounter Summary ---
Author Organization [employer] Address 75 [facility] 7t [place] [address] Care Team Providers Care Rate And Cost Analyst Name Role Phone Morena Forte Primary Care Provider [phone] Jeremiah Humphrey Unavailable Raj Galvin MD Unavailable [phone] Ely Mesa Unavailable Reason for Visit * Reason Onset Date Comments PT1 08/03/2023 Encounter Details Date Type Department Care Team ([facility] Contact Info) Description 08/03/2023 Telephone [facility] MED & PEDS 505 [place], [place] [phone] Morena Forte FNP 505 [place], [place] [phone] PT1 Social History Tobacco Use Types Packs/Day [...] 09/03 Time: 2 PM Visits: n/a Address: [address] [place] [address] Facility: [facility] primary care Wheel Chair: no Spout Positioner Needed: no superintendent geophysical laboratory location confirmed: [address], [place] [address] documented in this encounter Plan of Treatment Upcoming Encounters Date Type Department Care Team ([facility] Contact Info) Description 08/24/2025 11:15 AM EST Office Visit [facility] MED & PEDS 505 [place] [address] Morena Forte FNP 505 [place] [address] documented as of this encounter Goals Goal Patient Goal Type Associated Problems Recent Progress Patient-Stated? Author Blood Pressure < 140/90 Blood Pressure 148/70( 025 9:52 AM EDT) Eve Bailey, Sharon documented as of this encounter Visit Diagnoses Not on filedocumented in this encounter Additional Health Concerns Assessment Noted Time PHQ-9 Depression Total Score: 0 06/08/20 23 1:16 PM EDT documented as of this encounter Care Teams Rate And Cost Analyst Relationship Specialty Start Date End Date Morena Forte FNP [address] [place] [address] PCP - General Family Medicine 09/27/22 Jeremiah Humphrey Community Health Worker 04/18/24 Raj Galvin MD 100 [facility] 200 [place] [address] Nephrology 08/25/24 Ely Meas [address] [place] [address] Thoracic Surgery 08/25/24 documented as of this encounter
--- OUTSIDE RECORDS SUMMARY | 2025-07-21 11:30 | XMS_ITS | Encounter Summary ---
Author Organization [employer] Address 75 [facility] 7t [place] [address] Care Team Providers Care Hedge Fund Principal Name Role Phone Morena Forte Primary Care Provider [phone] Jeremiah Humphrey Unavailable Raj Galvin MD Unavailable [phone] Ely Mesa Unavailable Reason for Visit * Reason Comments Med Refill Encounter Details Date Type Department Care Team (Late st Contact Info) Description 06/26/2025 Refill [facility] MEDICINE 230 [place] [address] Morena Forte FNP [address] [place], [place] [phone] Lower extremity edema Social History Tobacco Use [...] Description 08/24/2025 11:15 AM EST Office Visit [facility] MED & PEDS 505 [place] [address] Morena Forte FNP 505 [place] [address] documented as of this encounter Goals Goal [...] documented as of this encounter Care Teams Hedge Fund Principal Relationship Specialty Start Date End Date Morena Forte FNP [address] [place] [address] PCP - General Family Medicine 09/27/22 Jeremiah Humphrey Community Health Worker 04/18/24 Raj Galvin MD [address] [place] [phone] Nephrology 08/25/24 Ely Mesa [address] [place] [address] Thoracic Surgery 08/25/24 documented as of this encounter
--- OUTSIDE RECORDS SUMMARY | 2025-07-21 11:30 | XMS_ITS | Encounter Summary ---
Author Organization [employer] Address 75 [facility] 7t [place] [address] Care Team Providers Care Personal Lines Account Executive Name Role Phone Morena Forte Primary Care Provider [phone] Jeremiah Humphrey Unavailable Raj Galvin MD Unavailable [phone] Ely Mesa Unavailable Reason for Visit * Reason Comments Med Refill Encounter Details Date Type Department Care Team (Late st Contact Info) Description 02/26/2023 Refill [facility] MEDICINE 230 [place] [address] Morena Forte FNP [address] [place], [place] [phone] Social History Tobacco Use Types Packs/Day Years [...] 02/26/2023 10:33 AM EDT Pt discharged from [facility] 02/23/23 Dx: Pulmonary emboli, lung cancer. Discharge [...] AM EST Office Visit [facility] MED & PEDS 505 [place] [address] Morena Forte FNP 505 [place] [address] documented as of this encounter Visit Diagnoses Not on filedocumented in this encounter Care Teams Personal Lines Account Executive Relationship Specialty Start Date End Date Morena Forte FNP [address] [place] [address] PCP - General Family Medicine 09/27/22 Jeremiah Humphrey Community Health Worker 04/18/24 Raj Galvin MD 100 [facility] 200 [place] [address] Nephrology 08/25/24 Ely Mesa [address] [place] [address] Thoracic Surgery 08/25/24 documented as of this encounter
--- OUTSIDE RECORDS SUMMARY | 2025-07-21 11:30 | XMS_ITS | Encounter Summary ---
Author Organization [employer] Address 75 [facility] 7t [place] [address] Care Team Providers Care Soliciting Freight Agent Name Role Phone Morena Forte Primary Care Provider [phone] Jeremiah Humphrey Unavailable Raj Galvin MD Unavailable [phone] Ely Mesa Unavailable Reason for Visit * Reason Onset Date Comments PT1 02/26/2023 Encounter Details Date Type Department Care Team (Late st Contact Info) Description 02/26/2023 Telephone [facility] MEDICINE 230 [place] [address] Morena Forte FNP [address] [place], [place] [phone] PT1 Social History Tobacco Use Types Packs/Day [...] / denial letter via mail. PT-1 Request [id number] Pending - [facility] 230 [facility] [address] PT-1 Request [id number] Pending - [employer] [address] [facility] [address] PT-1 Request [id number] Pending - [facility] [address] [facility] [address] PT-1 Request [id number] Pending - [facility] General Surgeons [address] [place] [address] [place] * Telephone Encounter - Yi Kingston - 03/20/2023 10:05 AM EDT Patient will recieve approval / denial letter via mail. PT-1 Request [id number] Pending - [facility] 230 [facility] PT-1 Request [id number] Pending - [employer] [address] [facility] [address] PT-1 Request [id number] Pending - [facility] [address] [facility] [address] * Telephone Encounter - Radha Turk - 02/26/2023 8:40 AM EDT Tc from pt requesting to renew PT1 forms that On February: PT1 Name of facility: [facility] Specialty: ALL FUTURE APPT's Location: 230 [place], [place] Date: n/a Time: n/a fax: n/a Phone: n/a wheelchair: n/a Die Baker: n/a PT1 Name of facility: [facility] Specialty: ALL FUTURE APPT's Location: [address] [place] [address] Date: n/a Time: n/a fax: n/a Phone: n/a wheelchair: n/a Die Baker: n/a PT1 Name of facility: [facility] Specialty: ALL FUTURE APPT's Location: 60 [facility], [place] [address] Date: n/a Time: n/a fax: n/a Phone: n/a wheelchair: n/a Die Baker: n/a PT1 Name of facility: [facility] General Surgeons Specialty: ALL FUTURE APPT's Location: [address] [place] [address] [place] Date: n/a Time: n/a fax: n/a Phone: n/a wheelchair: n/a Die Baker: n/a FOR ALL FUTURE APPT's!! Please contact pt at [phone] documented in this encounter Plan of Treatment Upcoming Encounters Date Type Department Care Team (Late st Contact Info) Description 08/24/2025 11:15 AM EST Office Visit [facility] MED & PEDS 505 [place] [address] Morena Forte FNP 505 [place] [address] documented as of this encounter Visit Diagnoses Not on filedocumented in this encounter Care Teams Soliciting Freight Agent Relationship Specialty Start Date End Date Morena Forte FNP 230 [place] [address] PCP - General Family Medicine 09/27/22 Jeremiah Humphrey Community Health Worker 04/18/24 Raj Galvin MD 100 [facility] 200 [place] [address] Nephrology 08/25/24 Ely Mesa [address] [place] [address] Thoracic Surgery 08/25/24 documented as of this encounter
--- OUTSIDE RECORDS SUMMARY | 2025-07-21 11:30 | XMS_ITS | Encounter Summary ---
Author Organization [employer] Address 75 [facility] 7t [place] [address] Care Team Providers Care Production Supv Name Role Phone Morena Forte Primary Care Provider [phone] Jeremiah Humphrey Unavailable Raj Galvin MD Unavailable [phone] lEy Mesa Unavailable Reason for Visit * Reason Onset Date Comments PT1 01/01/2025 Encounter Details Date Type Department Care Team (Late st Contact Info) Description 01/01/2025 Telephone [facility] MEDICINE 230 [place] [address] Morena Forte FNP [address] [place], [place] [phone] PT1 Social History Tobacco Use Types Packs/Day [...] Y/N: Yes Provider name or facility name: [facility] - [address] [place] [address] Escort needed: Y/N: No Do you have a wheelchair: Y/N: Yes If yes- Manual or electric: electric Visits: (2x monthly) Patient calling requesting PT1 Home Address verified: Y/N: Yes Provider name or facility name: [address] [place] [address] Escort needed: Y/N: No Do you have a wheelchair: Y/N: Yes If yes- Manual or electric: electric Visits: (2x monthly) Patient calling requesting PT1 Home Address verified: Y/N: Yes Provider name or facility name: [facility] - 230 [place] [address] Escort needed: Y/N: No Do you have a wheelchair: Y/N: Yes If yes- Manual or electric: electric Visits: (2x monthly) documented in this encounter Plan of Treatment Upcoming Encounters Date Type Department Care Team (Late st Contact Info) Description 08/24/2025 11:15 AM EST Office Visit [facility] MED & PEDS 505 [place] [address] Morena Forte FNP 505 [place] [address] documented as of this encounter Goals Goal [...] documented as of this encounter Care Teams Production Supv Relationship Specialty Start Date End Date Morena Forte FNP 230 [place] [address] PCP - General Family Medicine 09/27/22 Jeremiah Humphrey Community Health Worker 04/18/24 Raj Galvin MD 100 [facility] 200 [place] [address] Nephrology 08/25/24 Ely Mesa [address] [place] [address] Thoracic Surgery 08/25/24 documented as of this encounter
--- OUTSIDE RECORDS SUMMARY | 2025-07-21 11:30 | XMS_ITS | Encounter Summary ---
Author Organization [employer] Address 75 [facility] 7t [place] [address] Care Team Providers Care Lint Cleaner Name Role Phone Morena Forte Primary Care Provider [phone] Jeremiah Humphrey Unavailable Raj Galvin MD Unavailable [phone] Ely Mesa Unavailable Encounter Details Date Type Department Care Team (Late st Contact Info) Description 01/18/2023 Telephone [facility] MEDICINE 230 [place] [address] Morena Forte FNP [address] [place], [place] [phone] Social History Tobacco Use Types Packs/Day Years [...] 11:15 AM EST Office Visit [facility] MED & PEDS 505 [place], [place] [phone] Morena Forte FNP 505 [place] [address] documented as of this encounter Visit Diagnoses Not on filedocumented in this encounter Care Teams Lint Cleaner Relationship Specialty Start Date End Date Morena Forte FNP 230 [place] [address] PCP - General Family Medicine 09/27/22 Jeremiah Humphrey Community Health Worker 04/18/24 Raj Galvin MD 100 [facility] 200 [place] [address] Nephrology 08/25/24 Ely Mesa [address] [place] [address] Thoracic Surgery 08/25/24 documented as of this encounter
--- OUTSIDE RECORDS SUMMARY | 2025-07-21 11:30 | XMS_ITS | Encounter Summary ---
Author Organization [employer] Address 75 [facility] 7t [place] [address] Care Team Providers Care Wire Spinner Name Role Phone Morena Forte Primary Care Provider Jeremiah Humphrey Unavailable Raj Galvin MD Unavailable [phone] Ely Mesa Unavailable Reason for Visit * Reason Onset Date Comments PT-1 01/25/2024 Encounter Details Date Type Department Care Team (Late st Contact Info) Description 01/25/2024 Telephone [facility] MEDICINE 230 [place] [address] Morena Forte FNP [address] [place], [place] [phone] PT-1 Social History Tobacco Use Types Packs/Day [...] Y/N: Yes Provider name or facility name: [facility] Facility Address: [address] [facility] Escort needed: Yes Do you have a wheelchair: Y/N: No If yes- Manual or electric: Uses Lopez Visits: 5 Monthly Patient calling requesting PT1 Home Address verified: Y/N: Yes Provider name or facility name: [place] [facility]: [facility] Facility Address: [address] [place] [address] Escort needed: No Do you have a wheelchair: Y/N: No If yes- Manual or electric: Uses Lopez Visits: 3 monthly Patient calling requesting PT1 Home Address verified: Y/N: Yes Provider name or facility name: [facility] Facility Address: [address] [place] [address] Escort needed: Y/N: No Do you have a wheelchair: Y/N: No If yes- Manual or electric: Uses lopez Visits: 2 monthly Patient calling requesting PT1 Home Address verified: Y/N: Yes Provider name or facility name: [facility] Facility Address: 230 [facility] Escort needed: Y/N: No Do you have a wheelchair: Y/N: No If yes- Manual or electric: Uses Visits: Twice a month Patient calling requesting PT1 Home Address verified: Y/N: Yes Provider name or facility name: [facility] Facility Address: [address] [facility] Escort needed: Y/N: No Do you have a wheelchair: Y/N: No If yes- Manual or electric: Uses lopez Visits: 1 monthly documented in this encounter Plan of Treatment Upcoming Encounters Date Type Department Care Team ([facility] st Contact Info) Description 08/24/2025 11:15 AM EST Office Visit [facility] MED & PEDS 505 [place] [address] Morena Forte FNP 505 [place] [address] documented as of this encounter Goals Goal Patient Goal Type Associated Problems Recent Progress Patient-Stated? Author Blood Pressure < 140/90 Blood Pressure 148/70( 025 9:52 AM EDT) No Piers-Gambl e, Eve, PharmD documented as of this encounter Visit Diagnoses Not on filedocumented in this encounter Additional Health Concerns Assessment Noted Time PHQ-9 Depression Total Score: 0 06/08/20 23 1:16 PM EDT documented as of this encounter Care Teams Wire Spinner Relationship Specialty Start Date End Date Morena Forte FNP 230 [place] [address] PCP - General Family Medicine 09/27/22 Jeremiah Humphrey Community Health Worker 04/18/24 Raj Galvin MD [address] [address] Nephrology 08/25/24 Ely Mesa [address] [place] [address] Thoracic Surgery 08/25/24 documented as of this encounter
--- OUTSIDE RECORDS SUMMARY | 2025-07-21 11:30 | XMS_ITS | Encounter Summary ---
Author Organization [employer] Address 75 [facility] 7t [place] [address] Care Team Providers Care Lab Asst Name Role Phone Morena Forte Primary Care Provider [phone] Jeremiah Humphrey Unavailable Raj Galvin MD Unavailable [phone] E[address] Mesa Unavailable Reason for Visit * Reason Onset Date Comments PT1 05/28/2023 Encounter Details Date Type Department Care Team (Late st Contact Info) Description 05/28/2023 Telephone [facility] MEDICINE 230 [place] [address] Morena Forte FNP 505 [place], [place] [phone] PT1 Social History Tobacco Use Types Packs/Day [...] be a van transportation not a car Location:[address] [place] [address] Specialty: Podiatry Date&Time:N/a Warper Fixer:No Pt will be using a cane PT1 Date: 06/01/2023 Time: 2:15 pm address: [address] [place] [address] specialty: Pulmonogists ceramic artist: N/A Wheelchair:N/A documented in this encounter Plan of Treatment Upcoming Encounters Date Type Department Care Team (Late st Contact Info) Description 08/24/2025 11:15 AM EST Office Visit [facility] MED & PEDS 505 [place] [address] Morena Forte FNP 505 [place] [address] documented as of this encounter Visit Diagnoses Not on filedocumented in this encounter Additional Health Concerns Assessment Noted Time PHQ-9 Depression Total Score: 16 023 9:44 AM EDT documented as of this encounter Care Teams Lab Asst Relationship Specialty Start Date End Date Morena Forte FNP 230 [place] [address] PCP - General Family Medicine 09/27/22 Jeremiah Humphrey Community Health Worker 04/18/24 Raj Galvin MD 100 [facility] 200 [place] [address] Nephrology 08/25/24 Ely Mesa [address] [place] [address] Thoracic Surgery 08/25/24 documented as of this encounter
--- OUTSIDE RECORDS SUMMARY | 2025-07-21 11:30 | XMS_ITS | Encounter Summary ---
Author Organization [employer] Address 75 [facility] 7t [place] [address] Care Team Providers Care Pastry Mixer Name Role Phone Morena Forte Primary Care Provider [phone] Jeremiah Humphrey Unavailable aRj Galvin MD Unavailable [phone] Unavailable Reason for Visit * Reason Onset Date Comments Medication Question 02/23/2023 Other 02/23/2023 Encounter Details Date Type Department Care Team (Late st Contact Info) Description 02/23/2023 Telephone [facility] MEDICINE 230 [place] [address] Morena Forte FNP [address] [place], [place] [phone] Medication Question; Other Social History Tobacco Use [...] to inform PCP he is currently at [facility] since 02/20/23 admitted due to breathingtrouble. Patient is due to discharge today but has not yet. Patient is requesting a call back, in regards to medication questions. No other details provided. documented in this encounter Plan of Treatment Upcoming Encounters Date Type Department Care Team (Late st Contact Info) Description 08/24/2025 11:15 AM EST Office Visit [facility] MED & PEDS 505 [place] [address] Morena Forte FNP 505 [place] [address] documented as of this encounter Visit Diagnoses Not on filedocumented in this encounter Care Teams Pastry Mixer Relationship Specialty Start Date End Date Morena Forte FNP [address] [place] [address] PCP - General Family Medicine 09/27/22 Jeremiah Humphrey Community Health Worker 04/18/24 Raj Galvin MD 100 [facility] 200 [place] [address] Nephrology 08/25/24 Ely Mesa [address] [place] [address] Thoracic Surgery 08/25/24 documented as of this encounter
--- OUTSIDE RECORDS SUMMARY | 2025-07-21 11:30 | XMS_ITS | Encounter Summary ---
Author Organization [employer] Address 75 [facility] 7t [place] [address] Care Team Providers Care Temperature Inspector Name Role Phone Morena Forte Primary Care Provider [phone] Jeremiah Humphrey Unavailable Raj Galvin MD Unavailable [phone] E[address] Unavailable Reason for Visit * Reason Comments Med Refill Encounter Details Date Type Department Care Team ([facility] st Contact Info) Description 04/03/2024 Refill [facility] MED & PEDS 505 [place], [place] [phone] Morena Forte FNP 505 [place], [place] [phone] Severe obesity (CMS/HCC) Social History Tobacco Use [...] [facility] 505 [place] [address] Morena Forte FNP 505 [place] [address] documented as of this encounter Goals Goal Patient Goal Type Associated Problems Recent Progress Patient-Stated? Author Blood Pressure < 140/90 Blood Pressure 148/70( 025 9:52 AM EDT) No Eve Oliveira, PharmD documented as of this encounter Visit Diagnoses Diagnosis Severe obesity (CMS/HCC) (HCC) Morbid obesity documented in this encounter Additional Health Concerns Assessment Noted Time PHQ-9 Depression Total Score: 0 06/08/20 23 1:16 PM EDT documented as of this encounter Care Teams Temperature Inspector Relationship Specialty Start Date End Date Morena Forte FNP 230 [place] [address] PCP - General Family Medicine 09/27/22 Jeremiah Humphrey Community Health Worker 04/18/24 Raj Galvin MD 100 [facility] 200 [place] [phone] Nephrology 08/25/24 Ely Mesa [address] [place] [address] Thoracic Surgery 08/25/24 documented as of this encounter
[2025-07-21] MEDS: iohexoL 350 MG/ML 100 ML INFUS..BTL IV (11:52)
== END 2025-07-21 10:20 | disposition home or self-care (01) ==
LOC: HO.CT 10:19
PROVIDERS: PCP Registered Nurse; Visit Provider Nurse Practitioner Family
DX: R06.02 Shortness of breath (principal); Z86.711 Personal history of pulmonary embolism
CPT/HCPCS: 71275; Q9967

== ENCOUNTER → 2025-07-21 10:21 | Outpatient (BNV) | payer MEDICAID, SELFPAY | PROVIDERS: PCP Registered Nurse; Visit Provider Radiology Diagnostic Radiology | DX: R06.02 Shortness of breath (principal); R91.8 Other nonspecific abnormal finding of lung field | CPT/HCPCS: 71275 ==

== ENCOUNTER 2025-08-17 14:45 | Outpatient (REF) | payer MEDICAID, SELFPAY ==
[2025-08-17 15:30] LABS: Appearance Urine Clear; Glucose Urine UA Negative (Negative); PH 6.5 (5.0-9.0); Specific Gravity - Urine 1.010 (1.005-1.025); UMIC TRIGGER UA YES
[2025-08-17 15:59] LABS: Anion Gap 12 (12-20); Blood Urea Nitrogen 17 mg/dL (9-16); Calcium 10.3 mg/dL (8.4-10.2); Carbon Dioxide 32 mmol/L (22-29); Chloride 104 mmol/L (96-108); Estimated Glomerular Filt Rate > 60; Potassium 5.0 mmol/L (3.3-5.1); Sodium 143 mmol/L (135-145)
[2025-08-17 16:06] LABS: Total Protein Urine Random 109 mg/dL (<12)
--- OUTSIDE RECORDS SUMMARY | 2025-08-17 18:13 | XMS_ITS | Encounter Summary ---
Author Organization [employer] Address 75 [facility] 7t [place] [address] Care Team Providers Care Veterinary Milk Specialist Name Role Phone Morena Forte Primary Care Provider [phone] Jeremiah Humphrey Unavailable Raj Galvin MD Unavailable [phone] Unavailable Reason for Visit * Reason Onset Date Comments Nurse Triage 11/22/2023 Encounter Details Date Type Department Care Team (Late st Contact Info) Description 11/22/2023 Telephone [facility] MEDICINE 230 [place] [address] Morena Forte FNP [address] [place], [place] [phone] Nurse Triage Social History Tobacco Use Types [...] Description 08/24/2025 11:15 AM EST Office Visit [facility] MED & PEDS 505 [place] [address] Morena Forte, TERI 505 [place] [address] documented as of this encounter Goals Goal [...] documented as of this encounter Care Teams Veterinary Milk Specialist Relationship Specialty Start Date End Date Morena Forte FNP 230 [place] [address] PCP - General Family Medicine 09/27/22 Jeremiah Humphrey Community Health Worker 04/18/24 Raj Galvin MD [address] [phone] Nephrology 08/25/24 Ely Mesa [address] [place] [address] Thoracic Surgery 08/25/24 documented as of this encounter
--- OUTSIDE RECORDS SUMMARY | 2025-08-17 18:13 | XMS_ITS | Encounter Summary ---
Author Organization [employer] Address 75 [facility] 7t [place] [address] Care Team Providers Care Line Dancer Name Role Phone Morena Forte Primary Care Provider [phone] Jeremiah Humphrey Unavailable Raj Galvin MD Unavailable [phone] E[address] Unavailable Reason for Visit * Reason Comments Med Refill Encounter Details Date Type Department Care Team (Late st Contact Info) Description 05/13/[address] [facility] MEDICINE 230 [place] [address] Morena Forte FNP [address] [place], [place] [phone] Social History Tobacco Use Types Packs/Day Years [...] 08/24/2025 11:15 AM EST Office Visit [facility] & PEDS 505 [place] [address] Morena Forte FNP 505 [place] [address] documented as of this encounter Goals Goal [...] documented as of this encounter Care Teams Line Dancer Relationship Specialty Start Date End Date Morena Forte FNP 230 [place] [address] PCP - General Family Medicine 09/27/22 Jeremiah Humphrey Community Health Worker 04/18/24 Raj Galvin MD 100 [facility] 200 [place] [phone] Nephrology 08/25/24 Ely Mesa [address] [place] [phone] Thoracic Surgery 08/25/24 documented as of this encounter
--- OUTSIDE RECORDS SUMMARY | 2025-08-17 18:13 | XMS_ITS | Encounter Summary ---
Author Organization [employer] Address 75 [facility] 7t [place] [address] Care Team Providers Care Manager Of Enterprise Name Role Phone Morena Forte Primary Care Provider [phone] Jeremiah Humphrey Unavailable Raj Galvin MD Unavailable [phone] E[address] Unavailable Reason for Visit * Reason Comments Med Refill Encounter Details Date Type Department Care Team (Late st Contact Info) Description 02/26/2023 Refill [facility] MEDICINE 230 [place] [address] oMrena Forte FNP [address] [place], [place] [phone] Social History Tobacco Use Types Packs/Day Years [...] 02/26/2023 10:33 AM EDT Pt discharged from [facility] 02/23/23 Dx: Pulmonary emboli, lung cancer. Discharge [...] 08/24/2025 11:15 AM EST Office Visit [facility] 505 [place] [address] Morena Forte FNP 505 [place] [address] documented as of this encounter Visit Diagnoses Not on filedocumented in this encounter Care Teams Manager Of Enterprise Relationship Specialty Start Date End Date Morena Forte FNP [address] [place] [address] PCP - General Family Medicine 09/27/22 Jeremiah Humphrey Community Health Worker 04/18/24 Raj Galvin MD 100 [facility] 200 [place] [address] Nephrology 08/25/24 Ely Mesa [address] [place] [address] Thoracic Surgery 08/25/24 documented as of this encounter
--- OUTSIDE RECORDS SUMMARY | 2025-08-17 18:13 | XMS_ITS | Encounter Summary ---
Author Organization [employer] Address 75 [facility] 7t [place] [address] Care Team Providers Care Anatomic Pathology Assistant Name Role Phone Morena Forte Primary Care Provider [phone] Jeremiah Humphrey Unavailable Raj Galvin MD Unavailable [phone] E[address] Unavailable Reason for Visit * Reason Onset Date Comments PT1 11/26/2024 Encounter Details Date Type Department Care Team (Late st Contact Info) Description 11/26/2024 Telephone [facility] MEDICINE 230 [place] [address] Morena Forte FNP [address] [place], [place] [phone] PT1 Social History Tobacco Use Types Packs/Day [...] Y/N: Yes Provider name or facility name: [address] [address]. Escort needed: Y/N: No Do you have a wheelchair: Y/N: No (cane) If yes- Manual or electric: N/A Visits: (2x monthly) documented in this encounter Plan of Treatment Upcoming Encounters Date Type Department Care Team (Late st Contact Info) Description 08/24/2025 11:15 AM EST Office Visit [facility] MED & PEDS [address] [place] [address] Morena Forte FNP [address] [place] [address] documented as of this encounter Goals Goal [...] documented as of this encounter Care Teams Anatomic Pathology Assistant Relationship Specialty Start Date End Date Morena Forte FNP [address] [place] [address] PCP - General Family Medicine 09/27/22 Jeremiah Humphrey Community Health Worker 04/18/24 Raj Galvin MD [address] [address] Nephrology 08/25/24 Ely Mesa [address] [place] [address] Thoracic Surgery 08/25/24 documented as of this encounter
--- OUTSIDE RECORDS SUMMARY | 2025-08-17 18:13 | XMS_ITS | Encounter Summary ---
Author Organization [employer] Address 75 [facility] 7t [place] [address] Care Team Providers Care Footwear Stitcher Name Role Phone Morena Forte Primary Care Provider [phone] Jeremiah Humphrey Unavailable Raj Galvin MD Unavailable [phone] E[address] Mesa Unavailable Reason for Visit * Reason Comments Med Refill Encounter Details Date Type Department Care Team ([facility] st Contact Info) Description 04/22/2024 Refill [facility] MED & PEDS 505 [place], [place] [phone] Morena Forte FNP 505 [place], [place] [phone] Social History Tobacco Use Types Packs/Day Years [...] to the pharmacy. CM reached out to [facility], spoke with Dulce who states pt [...] provided on [facility] Ur[facility] located in [facility] of [facility]. Patient provided with after-hours line for [facility], , which offer nighttime triage service and option to transfer to contact center consultant provider if needed. Patient verbalizes understanding, and able to repeat back to designer writer. A follow up call will be placed within 10 days, patient agrees with plan. documented in this encounter Plan of Treatment Upcoming Encounters Date Type Department Care Team ([facility] st Contact Info) Description 08/24/2025 11:15 AM EST Office Visit [facility] MED & PEDS 505 [place] [address] Morena Forte FNP 505 [place] [address] documented as of this encounter Goals Goal [...] documented as of this encounter Care Teams Footwear Stitcher Relationship Specialty Start Date End Date Morena Forte FNP 230 [place] [address] PCP - General Family Medicine 09/27/22 Jeremiah Humphrey Community Health Worker 04/18/24 Raj Galvin MD [address] [address] Nephrology 08/25/24 Ely Mesa [address] [place] [address] Thoracic Surgery 08/25/24 documented as of this encounter
--- OUTSIDE RECORDS SUMMARY | 2025-08-17 18:13 | XMS_ITS | Encounter Summary ---
Author Organization [employer] Address 75 [facility] 7t [place] [address] Care Team Providers Care Rock Breaker Name Role Phone Morena Forte Primary Care Provider [phone] Jeremiah Humphrey Unavailable Raj Galvin MD Unavailable [phone] E[address] Mesa Unavailable Reason for Visit * Reason Onset Date Comments PT1 05/29/2023 Encounter Details Date Type Department Care Team (Late st Contact Info) Description 05/29/2023 Telephone [facility] MEDICINE 230 [place] [address] Morena Forte FNP [address] [place], [place] [phone] PT1 Social History Tobacco Use Types Packs/Day [...] Time: 11 am Visits: Address: [place] [address] Facility: Wheel Chair: n/a Electrician Shop Needed: no *Patient states PCP needs to request for patient to only get picked up in a van due to his hip and unable to fit comfortably in a sedan. Patient states prior PCP had one in place but it has . PT1 Address verified Date: 06/19/23 Time: 11:30 am Visits: Address: [place] [address] Facility: Wheel Chair: n/a Electrician Shop Needed: no documented in this encounter Plan of Treatment Upcoming Encounters Date Type Department Care Team (Late st Contact Info) Description 08/24/2025 11:15 AM EST Office Visit [facility] MED & PEDS 505 [place] [address] Morena Forte FNP 505 [place] [address] documented as of this encounter Visit Diagnoses Not on filedocumented in this encounter Additional Health Concerns Assessment Noted Time PHQ-9 Depression Total Score: 16 023 9:44 AM EDT documented as of this encounter Care Teams Rock Breaker Relationship Specialty Start Date End Date Morena Forte FNP [address] [place] [address] PCP - General Family Medicine 09/27/22 Jeremiah Humphrey Community Health Worker 04/18/24 Raj Galvin MD 100 [facility] [address] [address] Nephrology 08/25/24 Ely Mesa [address] [place] [address] Thoracic Surgery 08/25/24 documented as of this encounter
--- OUTSIDE RECORDS SUMMARY | 2025-08-17 18:13 | XMS_ITS | Encounter Summary ---
Author Organization [employer] Address 75 [facility] 7t [place] [address] Care Team Providers Care Journeyman Mechanic Name Role Phone Morena Forte Primary Care Provider [phone] Jeremiah Humphrey Unavailable Raj Galvin MD Unavailable [phone] E[address] Mesa Unavailable Reason for Visit * Reason Onset Date Comments PT1 06/06/2023 Encounter Details Date Type Department Care Team (Late st Contact Info) Description 06/06/2023 Telephone [facility] 230 [place] [address] Morena Forte FNP [address] [place], [place] [phone] PT1 Social History Tobacco Use Types Packs/Day [...] Time: 3:00 PM address: [address] [place], [place] [address] specialty: eye care # visits: n/a synthetic department supervisor: no Wheelchair: no documented in this encounter Plan of Treatment Upcoming Encounters Date Type Department Care Team (Late st Contact Info) Description 08/24/2025 11:15 AM EST Office Visit [facility] [address] [place], [place] [phone] Morena Forte FNP 505 [place], [place] [phone] documented as of this encounter Goals Goal [...] documented as of this encounter Care Teams Journeyman Mechanic Relationship Specialty Start Date End Date Morena Forte FNP [address] [place] [address] PCP - General Family Medicine 09/27/22 Jeremiah Humphrey Community Health Worker 04/18/24 Raj Galvin MD [address] [address] Nephrology 08/25/24 Ely Mesa [address] [place] [phone] Thoracic Surgery 08/25/24 documented as of this encounter
--- OUTSIDE RECORDS SUMMARY | 2025-08-17 18:13 | XMS_ITS | Encounter Summary ---
Author Organization [employer] Address 75 [facility] 7t [place] [address] Care Team Providers Care Physiotherapist'S Assistant Name Role Phone Morena Forte Primary Care Provider [phone] Jeremiah Humphrey Unavailable Raj Galvin MD Unavailable [phone] E[address] Mesa Unavailable Reason for Visit * Reason Onset Date Comments pt1 12/19/2022 Encounter Details Date Type Department Care Team (Late st Contact Info) Description 12/19/2022 Telephone [facility] MEDICINE 230 [place] [address] Morena Forte FNP [address] [place], [place] [phone] pt1 Social History Tobacco Use Types Packs/Day [...] being picked up. Please contact pt at [phone] documented in this encounter Plan of Treatment Upcoming Encounters Date Type Department Care Team (Late st Contact Info) Description 08/24/2025 11:15 AM EST Office Visit [facility] MED & PEDS 505 [place], [place] [phone] Morena Forte FNP 505 [place], [place] [phone] documented as of this encounter Visit Diagnoses Not on filedocumented in this encounter Care Teams Physiotherapist'S Assistant Relationship Specialty Start Date End Date Morena Forte FNP [address] [place] [address] PCP - General Family Medicine 09/27/22 Jeremiah Humphrey Community Health Worker 04/18/24 Raj Galvin MD 100 [facility] 200 [place] [address] Nephrology 08/25/24 Ely Mesa [address] [place] [address] Thoracic Surgery 08/25/24 documented as of this encounter
--- OUTSIDE RECORDS SUMMARY | 2025-08-17 18:13 | XMS_ITS | Clinical Summary ---
Author Organization [employer] Address [address] [facility] [address] [place] [address] Care Team Providers Care Machine Maintenance Supervisor Name Role Phone Morena Forte Primary Care Provider [phone] Jeremiah Humphrey Unavailable Raj Galvin MD Unavailable [phone] Ely Mesa Unavailable Allergies Active Allergy Reactions [...] sleep. 1 to 2 tablets Active Umeclidinium [place] (Incruse Ellipta) 62.5 MCG/ACT aerosol powder Inhale [...] (one) time per week. 2 mL 3 07/28/20 25 Active Tirzepatide-W eight Management (Zepbound) 5 MG/0.5ML solution auto-injector Inject 0.5 mL (5 mg) under the skin 1 (one) time per week. 2 mL 3 07/13/20 25 025 Discontinued(Re order (will not trigger notification to Pharmacy)) Active Problems Problem Noted Date Diagnosed Date Pulmonary nodule, left 08/25/2024 Overview (08/25/2024): - Followed by Dr. Mesa - CT Chest 08/08/24: stable 4 mm nodule LLL Microscopic hematuria 03/11/2024 Overview (03/11/2024): Following with [facility] Urology - Dr. Guerrero 02/21/24: US renal bilat unremarkable Primary osteoarthritis of left knee 12/28/2023 Assessment & Plan (08/31/2024 8:51 PM EST): S/p left knee TKA with Dr. Eagle (SULAIMAN) at [facility] in May 2024 Previously doing well [...] knee TKA with Dr. Eagle (SULAIMAN) at [facility] in May 2024 Recovery going well, [...] minute. Pending plan and further information from [facility]. Healthcare maintenance 11/11/2023 Overview (03/10/2024): -Colonoscopy: followed by [facility] GI - booked for upper endoscopy and colonoscopy per consult note Jul 2023 -Lung CA: (+) hx lung CA - CT chest January 2024 Lung RADS 1, due 1 year Persistent proteinuria 11/11/2023 Overview (08/25/2024): Following with [facility] Nephrology - Dr. Raj Galvin - for proteinuria and microhematuria Imaging studies and urine cytology WNL Suspect proteinuria 2/2 obesity and lung CA Assessment & Plan (03/10/2024 7:25 AM EDT): Followed by [facility] Urology for proteinuria and hematuira. [...] Referrals: PS&S sent 09/06/23 (PT1 requested 11/11/23) [facility] sent 03/11/24 (w/ PT1) [...] syndrome (CMS/HCC) 3 Overview (07/20/2024): Following with [facility] Pulm - Dr. Cayden Pham and Melina Cont CT scans every 6 [...] time, interested in having meds sent to [facility] Assessment & Plan (05/20/2023 12:19 PM EDT): Following with Dr. Kendrick, current regimen: Duloxetine 60 mg qam Trazodone 50 mg at bedtime Bupropion XL 300 mg qam Declines interest in Med Box at this time, interested in having meds sent to [facility] Assessment & Plan (04/11/2023 2:16 PM EDT): Following with Dr. Kendrick Message sent to her office to discuss returning to previous med regimen as had worked better for pt. Requested refills sent to [facility] pharmacy as pt planning to transfer prescriptions here to start Med Box. Malignant neoplasm of upper lobe of left lung Overview (04/11/2023): 1.1 x 1.2cm lesion in PAXTON noted on LDCT 10/27/22 (hx of cigarette smoking) S/p PAXTON segmentectomy December [address] [facility] - resected nodular density revealed invasive adenocarcinoma, tumor size 2 x 1.5 x 1.1 cm Currently s/p surgery, initiated chemotherapy 04/09/23 Followed by [facility] Heme/Onc: Dr. Ulloa, and [facility] Pulm - Dr. Rodarte Assessment & Plan (04/11/2023 2:13 PM EDT): DME request for Ensure ([place] & Vanilla flavor BID) on 04/11/23 Assessment & Plan (04/09/2023 7:38 PM EDT): 1.1 x 1.2cm lesion in PAXTON noted on LDCT 10/27/22 (hx of cigarette smoking) S/p PAXTON segmentectomy [address] [facility] - resected nodular density revealed invasive adenocarcinoma, tumor size 2 x 1.5 x 1.1 cm Currently s/p surgery, with the plan to start chemotherapy Followed by [facility] Heme/Onc: Dr. Ulloa, and [facility] Pulm - Dr. Rodarte Assessment & Plan (03/19/2023 6:18 PM EDT): 1.1 x 1.2cm lesion in PAXTON noted on LDCT 10/27/22 (hx of cigarette smoking) S/p PAXTON segmentectomy [address] [facility] - resected nodular density revealed invasive adenocarcinoma, tumor size 2 x 1.5 x 1.1 cm Currently s/p surgery, with the plan to start chemotherapy Followed by [facility] Heme/Onc: Dr. Ulloa, and [facility] Pulm - Dr. Rodarte Pulmonary emboli (CMS/HCC) 03/19/2023 Assessment & Plan (03/11/2024 11:21 AM EDT): Identified during ED visit 02/22/23 Bilateral multiple pulmonary emboli (primarily left) Eliquis managed by [facility] Heme/Onc - discontinued December 2023 Assessment & Plan (05/14/2023 10:09 AM EDT): Identified during ED visit 02/22/23 Bilateral multiple pulmonary emboli (primarily left) Discharged on Eliquis, further rx to be managed by [facility] Heme/Onc (although last prescription sent in through PCP office) Assessment & Plan (04/09/2023 7:48 PM EDT): Identified during ED visit 02/22/23 Bilateral multiple pulmonary emboli (primarily left) Discharged on Eliquis, further rx to be managed by [facility] Heme/Onc Assessment & Plan (03/19/2023 6:21 PM EDT): Identified during ED visit 02/22/23 Bilateral multiple pulmonary emboli (primarily left) Discharged on Eliquis, further rx to be managed by [facility] Heme/Onc ED precautions reviewed Anomalous origin of right coronary artery 2022 Overview (01/11/2025): Following with [facility] cardiology-Dr. Jaime Consult December 2024: Hx of SOB that led to echo, stress test, and coronary CTA. It revealed anomalous coronary artery. He was referred to the adult congenital heart disease clinic at [facility] but was not recommended any interventions. [...] BP elevated in office Initially referred to [facility] Cards, subsequently referred to [facility] adult congential heart disease clinic Referral back to [facility] cardiology placed 03/19/23 due to elevated BP readings Continues with furosemide, may consider addition of second agent if home BP readings elevated as well Referral to Cards re-placed on 12/28/23 ED/urgent care precautions Assessment & Plan (06/10/2023 8:26 AM EDT): BP elevated in office Initially referred to [facility] Cards, subsequently referred to [facility] adult congential heart disease clinic Referral back to [facility] cardiology placed 03/19/23 due to elevated BP readings Continues with furosemide, may consider addition of second agent if home BP readings elevated as well Assessment & Plan (03/19/2023 6:31 PM EDT): Initially referred to [facility] Cards, subsequently referred to [facility] adult congential heart disease clinic Referral back to [facility] cardiology placed 03/19/23 due to elevated BP readings Continues with furosemide 20mg daily History of lobectomy of lung 02/11/2023 Overview (02/11/2023): -Left upper lobectomy at [facility] December 2022 Tobacco use 12/11/2022 Overview (03/11/2024): [...] as pharmacomtherapy, [facility] smoking cessation group, and [facility] pharmacy smoking cessation clinic -Interested in NRT patches as monotherapy, sent to pharmacy Assessment & Plan (11/11/2023 12:57 PM EST): -Continues with smoking cessation efforts, currently approx 10 cigg/day -Encouraged smoking cessation resources such as pharmacomtherapy, [facility] smoking cessation group, and [facility] pharmacy smoking cessation clinic -Interested in NRT patches as monotherapy, sent to pharmacy Assessment & Plan (09/06/2023 7:06 PM EST): -Continues with smoking cessation efforts, currently approx 6 cigg/day -Interested in Chantix, sent to pharmacy Assessment & Plan (06/10/2023 8:23 AM EDT): -Continues with smoking cessation efforts, currently approx 8 cigg/day -Interested in Chantix, spoke with [facility] pharmacy and verbal order given for starter pack of varenicline Assessment & Plan (12/11/2022 8:31 AM EST): -Continues with smoking cessation efforts, down to 6-7 cigg/day -Discussed smoking cessation resources available at [facility] such as smoking cessation clinic History of [...] Date Diagnosed Date Resolved Date Lung cancer (CMS/HCC) 06/06/20232022 Non-small cell cancer of left lung (CMS/HCC) 3 09/06/2023 Pleuritic chest pain 06/06/2023 023 Left upper lobe pulmonary nodule 06/06/2023 09/06/2023 SOB (shortness of breath) 06/06/2023 Mild intermittent asthma 12/07/2022 Encounters Date Type Department Care Team Description 08/17/2025 Orders Only GENERIC EXTERNAL DATA DEPARTMENT Provider, Generic External Data 07/28/2025 Refill [facility] [address] [place] [address] Morena Forte FNP 07/24/2025 Telephone [facility] [address] [place] [address] Morena Forte FNP Medication Question 07/21/2025 Orders Only [facility] External Provider, [facility] 07/13/2025 Refill [facility] [address] [place] [address] Morena Forte FNP 07/08/2025 Refill [facility] [address] [place] [address] Morena Forte FNP 07/07/2025 Telephone [facility] [address] [place] [address] Morena Forte FNP Call Back Request 07/07/2025 Telephone [facility] [address] [place] [address] Morena Forte FNP Med Refill 07/07/2025 Refill [facility] MED[facility] [address] [place] [address] Morena Forte FNP 06/26/2025 Refill [facility] MED[facility] [address] [place] [address] Morena Forte FNP Lower extremity edema 06/12/2025 Telephone [facility] [address] [place] [address] Morena Forte FNP No Show 06/12/2025 Telephone [facility] [address] [place] [address] Morena Forte FNP televisit 06/12/2025 Travel 06/12/2025 Telephone [facility] [address] [place] [address] Morena Forte FNP Appointment Request 06/11/2025 Telephone [facility] [address] [place] [address] Morena Forte FNP Chart Prep 06/01/2025 Refill [facility] MED[facility] [address] [place], [place] [phone] Morena Forte FNP Lower extremity edema 05/18/2025 Refill [facility] MED[facility] [address] [place] [address] Morena Forte FNP from Last 3 Months Immunizations Immunization Administration [...] Upcoming Encounters Date Type Department Care Team ([facility] st Contact Info) Description 08/24/2025 11:15 AM EST Office Visit [facility] [address] [place] [address] Morena Forte FNP [address] [place] [address] Health Maintenance Due Date Last Done Comments [...] 08/07/2015, 2014 Depression Screening 06/30/2025 06/30/2024, 06/30/20 Alcohol/Substance Use Screening 08/25/2025 08/25/2024 Diabetes: Hemoglobin A1C 11/07/2025 11/07/2024, 11/23 SDOH Screening 11/19/2025 11/19/2024 Tobacco Screening 01/09/2026 [...] Pressure 148/70( 025 9:52 AM EDT) Eve Bailey PharmD Procedures Procedure Name Priority Date/Time Associated Diagnosis Comments BASIC METABOLIC PANEL Routine 08/17/2025 3:00 PM EDT URINALYSIS, COMPLETE Routine 08/17/2025 2:57 PM EDT URINALYSIS WITH REFLEX TO MICROSCOPIC Routine 08/17/2025 2:57 PM EDT URINE PROTEIN, TOTAL, RANDOM (W/O CREATININE) Routine 08/17/2025 2:57 PM EDT CREATININE, RANDOM URINE Routine 08/17/2025 2:57 PM EDT CTA CHEST PE PROTOCAL Routine 07/21/2025 10:38 AM EDT HEMOGLOBIN A1C Routine 11/07/2024 4:09 PM EST Severe obesity (CMS/HCC) LIPID PANEL, STANDARD Routine 11/07/2024 4:09 PM EST Severe obesity (CMS/HCC) ZZZ HISTORICAL HIV AB/AG Routine 12/05/2019 1:56 PM EST from Last 3 Months or Most Recently Relevant to Health Maintenance Results * (ABNORMAL) Basic Metabolic Panel (08/17/2025 3:00 PM EDT) Sodium 143 135 - 145 mmol/L [facility] Potassium 5.0 3.3 - 5.1 mmol/L [facility] Chloride 104 96 - 108 mmol/L [facility] Carbon Dioxide 32(H) 22 - 29 mmol/L [facility] Anion Gap 12 12 - 20 [facility] Urea Nitrogen (BUN) 17(H) 9 - 16 mg/dL [facility] Creatinine, Serum 1.14 0.5 - 1.4 mg/dL [facility] Estimated Glomerular Filt Rate >60 [facility] Comment:Chronic Kidney Disea se: Estimated GFR < 60 mL/min/1.02c7Gabdgj Kidney Disease: Estimated GFR < 15 mL/min/1.73m2 Glucose 80 60 - 115 mg/dL [facility] Calcium 10.3(H) 8.4 - 10.2 mg/dL [facility] 08/17/2025 3:00 PM EDT 08/17/2025 3:00 PM EDT us Generic External Data Provider LAB BLOOD ORDERAB LES Final Result Performing Organization Address [facility] Co de Phone Number [facility] [address] [place] [phone] * (ABNORMAL) Urinalysis with Reflex to Microscopic (08/17/2025 2:57 PM EDT) Color Urine Yellow [facility] Appearance Urine Clear [facility] PH 6.5 5.0 - 9.0 [facility] Glucose Urine UA Negative Negative mg/dL [facility] Urine Blood Moderate (2+)(A) Negative [facility] Specific [place] - Urine 1.010 1.005 - 1.025 [facility] Urine Protein 100 (2+)(A) Neg-Trace mg/dL [facility] Urine Ketones Negative Negative mg/dL [facility] Nitrite Urine Negative Negative [facility] Leukocyte Esterase Urine Trace(A) Negative [facility] 08/17/2025 2:57 PM EDT 08/17/2025 3:14 PM EDT us Generic External Data Provider LAB URINE ORDERAB LES Final Result Performing Organization Address City/[facility]/ZIP Co de Phone Number [facility] [address] [place] [phone] * (ABNORMAL) Urine Protein, Total, Random without Creatinine (08/17/2025 2:57 PM EDT) Protein, Total, Random Urine 109(H) <12 mg/dL [facility] 08/17/2025 2:57 PM EDT 08/17/2025 3:14 PM EDT Generic External Data Provider LAB URINE ORDERAB LES Final Result Performing Organization Address [facility] Co de Phone Number [facility] [address] [place] [phone] * Creatinine, Random Urine (08/17/2025 2:57 PM EDT) Creatinine, Urine 56.61 mg/dL [facility] 08/17/2025 2:57 PM EDT 08/17/2025 3:14 PM EDT Generic External Data Provider LAB URINE ORDERAB LES Final Result Performing Organization Address [facility] Co de Phone Number [facility] [address] [place] [phone] * (ABNORMAL) Urinalysis Complete (08/17/2025 2:57 PM EDT) Color Urine Yellow [facility] Appearance Urine Clear [facility] PH 6.5 5.0 - 9.0 [facility] Glucose Urine UA Negative Negative mg/dL [facility] Urine Blood Moderate (2+)(A) Negative [facility] Specific [place] - Urine 1.010 1.005 - 1.025 [facility] Urine Protein 100 (2+)(A) Neg-Trace mg/dL [facility] Urine Ketones Negative Negative mg/dL [facility] Nitrite Urine Negative Negative [facility] Leukocyte Esterase Urine Trace(A) Negative [facility] RBC Urine 11-20(A) 0 - 2 /HPF [facility] Urine WBC 11-20(A) 0 - 5 /HPF [facility] Urine Squamous Epithelial Cell 0-2 0 - 2 /HPF [facility] Urine Bacteria None Seen None Seen [facility] Hyaline Casts, Urine 0-2 0 - 2 /LPF [facility] 08/17/2025 2:57 PM EDT 08/17/2025 3:14 PM EDT us Generic External Data Provider LAB URINE ORDERAB LES Final Result Performing Organization Address City/State/[facility] Co de Phone Number [facility] [address] [place] [phone] * CTA Chest PE Protocal (07/21/2025 10:38 AM EDT) Anatomical Region Laterality Modality Body, Chest Computed Tomogra phy 07/21/2025 10:3 8 AM EDT Narrative 07/21/2025 12:30 PM EDT [address] [address] [address] Scan Report Signed Patient: Dru Dorsey MR#: [id number] 1 : 1965 Acct:[id number] Age/Sex: 60 / M ADM Date: 07/21/25 Loc: HO.CT Attending Dr: Jaja Lan NP Ordering Physician: Jaja Lan NP Date of Service: 07/21/25 Procedure(s): CT angio chest PE protocol Accession Number(s): [id number] cc: Kelle Vinson MD; Morena Forte; Jaja Lan NP Report Number: [id number]: Total DLP = 200.00 mGy-cm Reason for Exam: Shortness of breath, hx PE EXAMINATION: CT ANGIOGRAM CHEST CLINICAL INFORMATION: Shortness of breath, hx PE and malignancy COMPARISON: February 21, 2023 TECHNIQUE: Multiple axial images were obtained through the chest after the administration of 85 mL of Omnipaque 350 intravenous contrast. Extensive vascular post-processing including two-dimensional and three-dimensional reformatted images were created and reviewed on an independent workstation. This CT examination was performed using dose optimization techniques as appropriate, variously including the following: *Automated exposure control *Adjustment of mA and/or kV according to patient size (this includes techniques or standardized protocols for targeted exams where dose is matched to indication/reason for exam; i.e. extremities or head) *Use of iterative reconstruction technique FINDINGS: QUALITY OF STUDY/CONTRAST BOLUS: Suboptimal with incomplete opacification of tertiary branches. PULMONARY ARTERIES: No central pulmonary emboli. Emboli of peripheral vessels cannot be excluded with any degree of certainty. THORACIC AORTA: There is mild atherosclerotic desiccation without aneurysm or dissection. LUNGS AND PLEURA: There is a solid nodule density in the medial posterior base of the left lower lobe. On coronal image 128/163 it measures 9 x 16 mm. Lungs are clear otherwise. There is no pleural effusion or pleural thickening. MEDIASTINUM: Again seen is a tubular density in the epicardial fat anterior to the right heart border that measures 14 x 63 mm (CC by transverse) previously measuring 14 x 17 mm. It measured -5 Hounsfield units and could be fluid in nature. No other mass or adenopathy is seen. CORONARY ARTERY CALCIFICATION: Present CHEST WALL/AXILLA: No axillary or internal mammary lymphadenopathy. UPPER ABDOMEN: High density stones layer in the gallbladder near the neck. BONES: Extensive bridging and nonbridging osteophytes are present involving anterior thoracic spine. CT/CT angio chest PE protocol IMPRESSION: No pulmonary embolus identified. There is a 9 x 16 mm nodular density in the medial basal left lower lobe. This probably represents atelectasis, but a pulmonary nodule is not ruled out. Follow-up CT chest in 3 months without contrast. There is a tubular density in the epicardial fat anterior to the right heart margin that was present on the prior examination. It measures fluid density. Etiology is uncertain. Cholelithiasis. Fleischner guidelines were followed. Electronically signed by: Umesh Magaña MD 07/21/2025 12:27 PM EDT Dictated By: Umesh Magaña MD Signed By: <Electronically signed by Umesh Magaña MD in OV> 07/21/25 1227 DD/ 1038 TD/TT: 07/21/25 1100 Eggs Inspector: Procedure Note Alexysmollymanuelter, Image - 07/21/[address] [address] [address] Scan Report Signed Patient: Dru Dorsey [facility]#: [id number] 1 : 1965Acct:[id number] Age/Sex: 60 / MADM Date: 07/21/25 Loc: HO.CT Attending Dr: Jaja Lan NP Ordering Physician: Jaja Lan NP Date of Service: 07/21/25 Procedure(s): CT angio chest PE protocol Accession Number(s): [id number] cc: Kelle Vinson MD; Morena Forte BREAST TRIMMER; Jaja Lan NP Report Number: [id number]: Total DLP = 200.00 mGy-cm Reason for Exam: Shortness of breath, hx PE EXAMINATION: CT ANGIOGRAM CHEST CLINICAL INFORMATION: Shortness of breath, hx PE and malignancy COMPARISON: February 21, 2023 TECHNIQUE: Multiple axial images were obtained through the chest after the administration of 85 mL of Omnipaque 350 intravenous contrast. Extensive vascular post-processing including two-dimensional and three-dimensional reformatted images were created and reviewed on an independent workstation. This CT examination was performed using dose optimization techniques as appropriate, variously including the following: *Automated exposure control *Adjustment of mA and/or kV according to patient size (this includes techniques or standardized protocols for targeted exams where dose is matched to indication/reason for exam; i.e. extremities or head) *Use of iterative reconstruction technique FINDINGS: QUALITY OF STUDY/CONTRAST BOLUS: Suboptimal with incomplete opacification of tertiary branches. PULMONARY ARTERIES: No central pulmonary emboli. Emboli of peripheral vessels cannot be excluded with any degree of certainty. THORACIC AORTA: There is mild atherosclerotic desiccation without aneurysm or dissection. LUNGS AND PLEURA: There is a solid nodule density in the medial posterior base of the left lower lobe. On coronal image 128/163 it measures 9 x 16 mm. Lungs are clear otherwise. There is no pleural effusion or pleural thickening. MEDIASTINUM: Again seen is a tubular density in the epicardial fat anterior to the right heart border that measures 14 x 63 mm (CC by transverse) previously measuring 14 x 17 mm. It measured -5 Hounsfield units and could be fluid in nature. No other mass or adenopathy is seen. CORONARY ARTERY CALCIFICATION: Present CHEST WALL/AXILLA: No axillary or internal mammary lymphadenopathy. UPPER ABDOMEN: High density stones layer in the gallbladder near the neck. BONES: Extensive bridging and nonbridging osteophytes are present involving anterior thoracic spine. CT/CT angio chest PE protocol IMPRESSION: No pulmonary embolus identified. There is a 9 x 16 mm nodular density in the medial basal left lower lobe. This probably represents atelectasis, but a pulmonary nodule is not ruled out. Follow-up CT chest in 3 months without contrast. There is a tubular density in the epicardial fat anterior to the right heart margin that was present on the prior examination. It measures fluid density. Etiology is uncertain. Cholelithiasis. Fleischner guidelines were followed. Electronically signed by: Umesh Magaña MD 07/21/2025 12:27 PM EDT RP Dictated By: Umesh Magaña MD Signed By: <Electronically signed by Umesh Magaña MD in OV> 07/21/25 1227 DD/ 1038 TD/TT: 07/21/25 1100 Eggs Inspector: [facility] External Provider IMG CT PROCEDURES Edited Result - Final * Hemoglobin A1c (11/07/2024 4:09 PM EST) Hemoglobin A1c 5.7 <6.0 % [facility] Comment:Hemoglobin A1C Refer ence Range Adults: 4.8 - 6.0 % Non diabetic: < 6.0 % Goal: < 7.0 %Additional Action Suggested: > 8.0 %Note: Hemoglobin A1c results are invalid for patients with abnormal amounts of HbF. Blood transfusions may impact the HbA1c concentration in the patient sample. Estimated Average Glucose 117 mg/dL [facility] Comment:eAG = Estimated ave rage glucose which is %A1C expressed asaverage glucose, using the formula of the C0M-KgdjeegFxdyysi Glucose study (ADAG), Diabetes Care, Vol.31,#8,May. 2007 Blood Venous blood specimen / Unknown 11/07/2024 4:09 PM EST 11/07/2024 5:[address] [facility] BLOOD ORDERABLES Final Res ult Performing Organization Address [facility] Co de Phone Number [facility] [address] [place] [phone] * Lipid Panel, Standard (11/07/2024 4:09 PM EST) Triglycerides 74 <150 mg/dL [facility] Comment:Desirable Triglyceri de: less than 150 mg/dLBorderline High Triglyceride 150-199 mg/dLHigh Triglyceride: 200-499 mg/dLVery High Triglyceride: greater than or equal to 5OO mg/dL Cholesterol 150 <200 mg/dL [facility] Comment:Desirable Cholestero l: less than 200 mg/dLBorderline High Cholesterol: 200-239 mg/dLHigh Cholesterol: greater than 239 mg/dL LDL Cholesterol Calculated 65 <100 mg/dL [facility] Comment:Desirable LDL: less than 100 mg/dLNear Optimal/Above Optimal LDL: 110- 129 mg/dLBorderline High LDL: 130-159 mg/dLHigh LDL: 160-189 mg/dLVery High LDL: greater than or equal to 190 mg/dL HDL Cholesterol 71 >40 mg/dL [facility] Comment:Desirable HDL: great er than 40 mg/dL Note: This HDL assay may give artificially low results in patients with liver disease. Blood Venous blood specimen / Unknown 11/07/2024 4:09 PM EST 11/07/2024 5:[address] [facility] BLOOD ORDERABLES Final Res ult Performing Organization Address [facility]/ZIP Co de Phone Number [facility] [address] [place] [phone] * HIV AB/AG (12/05/2019 1:56 PM [...] of detection of this assay. The [facility] [employer] HIV Ag/Ab Combo assay result and supplemental assay results should be interpreted in conjunction with the patient's clinical presentation, history and other laboratory results. If the results are inconsistent with clinical evidence, additional testing is suggested to confirm the result. 12/05/2019 1:56 PM EST us Yves Martin MD HISTORICAL/NON ORDERABLE LABS Fi nal Result Performing Organization Address City/State/[facility] Co de Phone Number [facility] Pending sale to [facility] [address] from Last 3 Months or Most Recently Relevant to Health Maintenance Insurance [facility] C3 Care Teams Machine Maintenance Supervisor Relationship Specialty Start Date End Date Morena Forte FNP [address] [place] [address] PCP - General Family Medicine 09/27/22 Jeremiah Humphrey Community Health Worker 04/18/24 Raj Galvin MD [address] [facility] [address] [place] [address] Nephrology 08/25/24 Ely Mesa [address] [place] [address] Thoracic Surgery 08/25/24
--- OUTSIDE RECORDS SUMMARY | 2025-08-17 18:13 | XMS_ITS | Data Portability ---
Author Organization [facility], Main Office Address [address] [facility] [address] [place] [address] Care Team Providers Care Cement Fittings Maker Name Role Phone [facility] Unavailable Primary Care Provider [phone] Assessment Encounter Date Assessment Date Assessment LastModified by Organization Details LastModified Time 06/13/2024 06/13/2024 Labs 06/10- wbc 10.9, hb 10.8, plt 177, na 136, k 4.5, chl 98 [email or web address] Not available 06/13/2024 09:33:23 06/16/2024 06/16/2024 Labs 06/10- wbc 10.9, hb 10.8, plt 177, na 136, k 4.5, chl 98 Labs 06/13- wbc 8.1, hb 11.4, hct 35.5, plt 205, na 140, k 5.1, chl 98, co2 33, bun 15, creat 1.1 [email or web address] Not available 06/16/2024 09:19:45 06/19/2024 06/19/2024 Labs 06/10- wbc 10.9, hb 10.8, plt 177, na 136, k 4.5, chl 98 Labs 06/13- wbc 8.1, hb 11.4, hct 35.5, plt 205, na 140, k 5.1, chl 98, co2 33, bun 15, creat 1.1 Labs 06/10- wbc 10.9, hb 10.8, plt 177, na 136, k 4.5, chl 98 [email or web address] Not available 06/19/2024 16:03:11 Plan of Treatment Reminders Order Date Submit Date Provider Last Modified By Organization Details Last Modified Time Details Appointments None record ed. Lab None record ed. Referral None record ed. Procedures None record ed. Surgeries None record ed. Imaging None record ed. Medication Orders None record ed. Patient TargetsNo targets recorded. Patient InstructionsNo instructions recorded. Reason for Referral None Reported. Problems Name Problem SNOMED Code Status Onset Date Resolution Date Notes Provider Name and Address Organization Details Recorded Time Osteoarthri tis of knee 316471688 Active 2023 PAOLO Zavala [address], [address], [place], [address], [facility] 4 09:29:08 Obesity 979724305 Active 2023 ALEKS ZavalaC [address], [address], [place], [address], [employer] [employer] 4 09:29:14 Malignant neoplasm of lung 342497796 Active 2023 PAOLO Zavala [address], [address], [place], [address], [facility] 4 09:29:58 History of pulmonary embolus 052155346 Active 2023 PAOLO Zavala [address], [address], [place], [address], [facility] 4 09:30:08 Chronic obstructive pulmonary disease 10694325 Active 2023 ALEKS ZavalaC [address], [address], [place], [address], [facility] 4 09:30:13 Depressive disorder 15078080 Active 2023 ALEKS ZavalaC [address], [address], [place], [address], [facility] 4 09:30:19 Obstructive sleep apnea syndrome 38069437 Active 2023 ALEKS ZavalaC [address], [address], [place], [address], [facility] 4 09:30:24 History of hepatitis C 0360574289760 1 Active 2023 PAOLO Zavala [address], [address], [place], [address], [facility] [employer] [facility] 4 09:30:39 Edema 273448823 Active 2023 PAOLO Zavala [address], [address], [place], [address], [facility] 4 09:38:08 Diabetes mellitus 22607848 Active 2023 PAOLO Zavala [address], [address], [place], [address], [facility] [employer] [facility] 4 09:38:46 History of recreationa l drug use 552230286 Active 2023 PAOLO Zavala [address], [address], [place], [address], [facility] 4 09:39:04 Constipatio n 45090507 Active 2023 PAOLO Zavala [address], [address], [place], [address], [facility] [employer] 4 09:39:20 Malignant neoplasm of lung 688492997 Active 2023 Annel Monae MD [address] [place] [address], [address], [place], [address], [facility] 4 16:19:46 Body mass index 40+ - severely obese 810136501 Active 2023 Annel Monae MD [address] [place] [address], [address], [place], [address], [facility] 4 16:21:29 Opioid dependence 38022548 Active 2023 Annel Monae MD [address] [place] [address], [address], [place], [address], [facility] 4 16:23:39 Hyperlipide janusz 90030615 Active 2023 Annel Monae MD [address], [address], [place], [address], [facility] 4 16:26:43 Problem Notes None recorded. Medical Equipment None Reported. Allergies Allergen ID Allergen Name Allergen Category Reaction Reaction Severity Criticality Documentation Date Start Date Code Code System Note Provider Name and Address Organization Details Recorded Time 15505 adhesive environme nt,medica tion Not available Not available Not available 06/19/2024 Annel Monae MD [address], [address], [place], [address], [facility] [employer] 14:55:37 48418 Product containin g penicilli n (product) medicatio n Not available Not available Not available 06/19/2024 21575 8001 SNOMED Annel Monae MD [address], [address], [place], [address], [facility] [employer] 14:55:45 Medications Name Sig Start Date Stop Date Status Note LastModified by Organization Details LastModified Time celecoxib 200 mg capsule TAKE 1 CAPSULE BY MOUTH EVERY DAY 06/13 completed Not Available Not Available Not Available cyclobenzapr ine 10 mg tablet TAKE 1 TABLET BY MOUTH THREE TIMES A DAY NEEDED FOR SPASMS 06/13 completed Not Available Not Available Not Available clindamycin HCl 300 mg capsule TAKE 1 CAPLET BY MOUTH EVERY DAY FOR 7 DAYS 06/13 completed Not Available Not Available Not Available pantoprazole 40 mg tablet,delay ed release TAKE 1 TABLET BY MOUTH EVERY DAY 06/13 completed Not Available Not Available Not Available hydromorphon e 4 mg tablet TAKE 1/2 (HALF) TO 1 TABLET EVERY 3 HOURS NEEDED FOR MODERATE /SEVERE PAIN 06/13 completed Not Available Not Available Not Available Eliquis 2.5 mg tablet TAKE 1 TABLET BY MOUTH TWO TIMES A DAY 06/13 completed Not Available Not Available Not Available Wegovy 1 mg/0.5 mL subcutaneous pen injector INJECT 1 MG UNDER THE SKIN ONCE WEEKLY 06/13 completed Not Available Not Available Not Available Wegovy 0.25 mg/0.5 mL subcutaneous pen injector INJECT 0.25 MG UNDER THE SKIN ONCE WEEKLY FOR WEEKS 1-4 06/13 completed Not Available Not Available Not Available Wegovy 0.5 mg/0.5 mL subcutaneous pen injector INJECT 5 ML UNDER THE SKIN ONE TIME PER WEEK 06/13 completed Not Available Not Available Not Available Vitals Date Recorded Heart rate Systolic And Diastolic Provider Name and Address Organization Details Last Updated DateTime 06/16/2024 67 /min 156/84 mm[Hg] PAOLO Zavala [address], [address], [place], [address], [facility] 06/16/2024 09:11:16 Date Recorded Body height Body mass index (BMI) Body weight Heart rate Respiratory rate Body temperature Oxygen saturation Oxygen saturation in Arterial blood by Pulse oximetry Systolic And Diastolic Provider Name and Address Organization Details Last Updated DateTime 167.64 cm 47.8 kg/m2 462319. 34 g 75 /min 18 /min 98 [degF] 91 % 91 % 112/83 mm[Hg] Annel Monae MD [address], [address], [place], [address], [facility] 15:18:58 Social History Question Answer Notes LastModified by Organizat ion Details LastModified Time Tobacco Smoking Status Current Every Day Smoker Annel Monae MD [address], [address], [place], [address], [facility] 06/19/2024 15:05:03 Do You Have An Advance Directive? Yes Information not available 06/19/2024 What Is Your Code Status? Full Code Information not available 06/19/2024 Where Do You Live? Apartment Alone, Elderly Complex, Has Ramp And Elevator Information not available 06/19/2024 Legal Guardian? No Informati on not available 06/19/2024 Do You Have A Medical Power Of Rn Compliance? Yes Information not available 06/19/2024 What Was The Date Of Your Most Recent Tobacco Screening? 06/19/2024 Information not available 06/19/2024 Do You Have An Out Of Hospital DNR? No Information not available 06/19/2024 What Is Your Relationship Status? Information not available 06/19/2024 How Much Tobacco Do You Smoke? 1 PPW Information not available 06/19/2024 Has Tobacco Cessation Counseling Been Provided? Yes Information not available 06/19/2024 On What Date Was Tobacco Cessation Counseling Provided? 06/19/2024 Quit For 164 Days, Then Relapsed Due To Pain. Planning On Quitting Again When He Goes Home. Information not available 06/19/2024 How Many Years Have You Smoked Tobacco? 44 Information not available 06/19/2024 Sex: Unknown Functional Status Question Answer Note LastModified by Organizat ion Details LastModified Time Do you use any illicit or recreational drugs? No hx of cocaine, heroin and fentanyl, clean x 5 yrs on methadone Information not available 06/19/2024 Do you or have you ever used any other forms of tobacco or nicotine? No Information not available 06/19/2024 What is your level of alcohol consumption? None sober x 5 yrs Information not available 06/19/2024 Do you or have you ever used smokeless tobacco? Never used smokeless tobacco Information not available 06/19/2024 Do you or have you ever used e-cigarettes or vape? Never used electronic cigarettes Information not available 06/19/2024 Mental Status None recorded. Family History Nothing Reported Notes:n/c Medical History No medical history recorded. Immunizations Vaccine Type Date Status Note Provider Nam e and Address Organization Details Recorded Time Tdap 0 completed Adithya Roblero [facility] 06/25/2024 15:23:46 Pneumococcal conjugate PCV 13 1 completed Adithya Roblero [facility] 06/25/2024 15:24:06 influenza, unspecified formulation 5 completed Adithya Roblero [facility] 06/25/2024 15:24:21 SARS-COV-2 (COVID-19) vaccine, UNSPECIFIED 1 completed Adithya Roblero [facility] 06/25/2024 15:24:36 SARS-COV-2 (COVID-19) vaccine, UNSPECIFIED 1 completed Adithya Roblero [facility] 06/25/2024 15:24:44 Past Encounters Encounter ID Performer Location Encounter Start Date Encounter Closed Date Diagnosis/Indication Diagnosis SNOMED-CT Code Diagnosis ICD10 Code Diagnosis IMO Codes Diagnosis Note [id number] PAOLO Zavala [address] [place] [address] 06/13/2024 09:25:43 06/17/2024 08:56:23 Osteoarthritis of knee 064842911 M17.12 S/P left TKA with Dr. Eagle. Initially some issues with pain control, now managed on oxycodone 15-20 mg q 3 hours PRN, tramadol 100 mg TID PRN pain, valium 2 mg TID PRN x 7 days, cyclobenza femi PRN x 7 days. Eliquis 2.5 mg BID x 30 days for DVT prophylaxi s. Follow-up ortho. Follow recs. PT/OT. Chronic ob structive pulmonary disease 00768204 J44.9 On breo, incruse, alb PRN. PT/OT. Depressive disorder 3548 9007 F32.0 On wellbutrin , trazodone, duloxetine . History of hepatitis C 0479402270 9101 Z86.19 Added to hx. History of pulmonary embolus 820720896 Z86.711 Added to hx. Malignant neoplasm of lung 191498503 C34.90 Hx of. With left UL resection. Obesity 155455555 E66.9 Added to hx. Obstructiv e sleep apnea syndrome 60366206 G47.33 Added to hx. Edema 997362186 R60.0 On lasix. History of recreational drug use 626133471 F19.21 On methadone 53 mg daily. Constipation 21019501 K5 9.00 On linzess. [id number] PAOLO Zavala [address] [place] [address] 06/16/2024 09:09:17 06/18/2024 20:08:18 Osteoarthritis of knee 293049966 M17.12 S/P left TKA with Dr. Eagle. Pain controlled on oxycodone 15-20 mg q 3 hours PRN, tramadol 100 mg TID PRN pain, valium 2 mg TID PRN x 7 days, cyclobenza femi PRN x 7 days (). Eliquis 2.5 mg BID x 30 days for DVT prophylaxi s. Follow-up ortho. Follow recs. PT/OT. Chronic ob structive pulmonary disease 23737919 J44.9 Stable. On breo, incruse, alb PRN. PT/OT. [id number] MD DON Meza [address] [place] [address] 06/19/2024 14:34:40 06/20/2024 12:32:46 Osteoarthritis of knee 121271952 M17.12 Z96.652 Recovering well after left TKA.Contin uing to need high dose opioids for pain control.Di scussed starting taper and decreasing to 15 mg oxy q 3 hrs prn (d/cing 20 mg option), pt concerned about this, but willing to try.Contin ue gabapentin 600 mg TID (of note was on 400 mg BID at home per [facility]), tramadol 100 mg TID prn pain, diazepam 2 mg TID prn, cyclobenza femi 10 mg TID prn (written to end on 06/19 but will continue). Continue Eliquis 2.5 mg BID x 30 days for DVT prophylaxi s.Will continue PT/OT for strengthen ing, balance, gait training, safety and function at home after d/c.Contin ue fall precaution s.Monitor for safety.F/U with ortho, will have nursing call in AM to check on appt., nothing in d/c paperwork. Chronic ob structive pulmonary disease 18177491 J43.8 Resp sxs at baseline.C ontinue breo ellipta 200/25 mcg qd, incruse ellipta 62.5 mcg qd, and albuterol MDI 2 puffs q 6 hrs prn.Monito r resp status. Depressive disorder 3548 9007 F33.8 Mood stable on wellbutrin 300 mg qd, gabapentin 300 mg TID, trazodone 150 mg qhs, and duloxetine 60 mg qd.F/U with outpt providers as planned. History of hepatitis C 2430375013 9101 B18.2 S/P tx, now with neg. viral load.F/U prn. History of pulmonary embolus 829161954 Z86.711 Postop after lung resection. No longer needs AC for this.Monit or for recurrence . Malignant neoplasm of lung 582412615 C34.12 S/P resection and chemo.Rece nt testing neg.F/U with heme/onc (Dr. Ull[place] at [facility]) as planned. Obstructiv e sleep apnea syndrome 23700912 G47.33 Encourage CPAP use.Monito r as outpt. Edema 502893437 R60.0 Continue Lasix 20 mg qd.Monitor Constipation 20898325 K5 9.09 Continue bowel meds as ordered.Mo nitor bowel function. Body mass index 40+ - severely obese 021889980 Z68.42 E66.01 Recently started on Wegovy 0.25 mg weekly by PCP.F/U as planned. Opioid dependence 408920 00 F11.20 Continue methadone 53 mg qAM and 30 mg qhs.F/U with clinic as planned. Hyperlipidemia 56786591 E78.49 Continue rosuvastat in 10 mg qd.Monitor labs as outpt. Cellulitis of lower leg 368448483 L03.116 With concern for early infection. Will start doxy 100 mg BID x 7 days with probiotic BID x 10 days.Also will r/o DVT due to calf tenderness , will order doppler, needs to be done before d/c.Monito r sxs. Health Concerns Section Related Observation LastModified by Organization Detai ls LastModified Time None Recorded Concern Status LastModified by Organization Details LastModified Time None Recorded Advance Directives Directive Y: Payers Insurance Date Sequence Insurance Name Policy Number Policy Jones Covered Member ID Jones Member ID Guarantor Name 06/16/2024 1 MEDICAID[place]: [facility] Dru Willian [id number] Dru Dorsey Notes Date Note Type Note Provider Name and Address Organization Details Recorded Time 06/13/2024 text/html 59-year-old male with PMH of obesity, lung CA, hx PE, COPD, depression, DA, hx hep C, hx of drug and alcohol use disorder presented to acute care for elective left TKA. Denia Regan NP-C [address], [address], [place], [address], [facility] [employer] 06/13/2024 09:47:59 06/16/2024 text/html 59-year-old male with PMH of obesity, lung CA, hx PE, COPD, depression, DA, hx hep C, hx of drug and alcohol use disorder presented to acute care for elective left TKA. Patient seen today for acute rounding visit; f/u left TKA. Denia Regan, RAZA-C [address], [address], [place], [address], [facility] [address] 06/16/2024 09:21:13 06/19/2024 text/html This is a 59 yo man who is here for rehab after an elective left TKA for left knee OA unresponsive to conservative measures.He was taken to the OR on 06/[address] Eagle.He tolerated procedure well with hgb drop from 11.9 to 10.8, no transfusion required.He had issues with pain control and was switched from oxy to dilaudid without improvement, so switched back to oxy. Also given toradol and Valium. Still minimal relief. Oxy was increased to 20 mg q 3 hrs and celebrex added. Tramadol ordered for mild pain, but pt's pain always >6.He was continued on his methadone 53 mg qAM and 30 mg qhs. He demo difficulty ambulating household distances, he is unsteady with gait this encounter, patient requires assistance with mobility and lives alone, he is well below his PLOF and will need further PT treatment in rehab to improve functional mobs .He was ready for d/c on 06/10, but d/c was delayed until 06/12 due to placement issues. In terms of his lung CA hx, per last heme/onc visit on 03/21/24: 01/09/2023-na vigational bronchoscopy with biopsy, de Renuka left upper lobe wedge with completion segmentectomy, mediastinal lymphadenectomy?.He underwent left upper lobe which resection/segmentecto my on 01/09/2023 at . Pathology revealed invasive adenocarcinoma, tumor size 2 x 1.5 x 1.1 cm, spread through air spaces identified, visceral pleural invasion not identified, margins negative. No regional lymph nodes identified. Pathological stage pT2a pNX. IHC revealed TTF1 positive, P 40 negative. NGS testing revealed PDL1 , TPS 4%, KRAS Exon 2 detected(p.G12R), ALK rearrangement not detected, BRAF mutation not detected, EGFR mutation not detected ROS1 negative.Positive for hepatitis-B core antibody. History of remote infection. He was made referral to GI, he no showed his appointment twice.PET scan performed 02/27/2023 showed postsurgical changes the left hemithorax without any FDG avid disease. No evidence of residual disease or metastatic disease.Patient presented at tumor Board (), as per discussion at tumor board, he has been recommended adjuvant chemotherapy since he has had inadequate surgery and staging of his lung cancer.He received 4 cycles of cis-[place]/pemetrex ed which he completed on 06/11/2023.Pulmonary emboli, CTA 02/21/23 showed small filling defects in branches of right pulmonary artery no large embolus. He was on anticoagulation until December 2023 for postoperative pulmonary embolism. In terms of his OUD, he had home doses of methadone to last until 06/24, which friend brought in for him.He has been doing well with rehab and d/c is planned for tomorrow. He tells me pain is still bad, he has needed oxy on and off since sobriety and has always been good about not overdoing it and stopping when no longer needed.He says he is committed to his sobriety and has good supports.Says methadone has never helped his pain. He is in the process of tapering off it.He says he is also getting muscle spasms and diazepam helps, hasn't taken much of cyclobenzaprine.He also tells me he has a rash, like hives on arms and abd. Itchy, it gets better and worse through the day. Usually worst when he first gets up. Doesn't seem to be worse after he gets any meds. His PMH includes COPD, DA-intermittent CPAP use, hx of adenocarcinoma of left lung s/p resection and chemo 2022, morbid obesity, depression, Hep C-s/p tx with Harvoni-now neg viral load, OA, IBS, OUD (cocaine, heroin, fentanyl) on methadone since 2018, borderline personality, and EtOH use disorder-sober since 2019. Annel Monae MD [address] [place] [address], [address], [place], [address], [facility] [employer] 06/19/2024 17:36:04
--- OUTSIDE RECORDS SUMMARY | 2025-08-17 18:13 | XMS_ITS | Encounter Summary ---
Author Organization [employer] Address 75 [facility]] [address] 7t [place] [address] Care Team Providers Care Title Attorney Name Role Phone Morena Forte Primary Care Provider [phone] Jeremiah Humphrey Unavailable Raj Galvin MD Unavailable [phone] Eyl Mesa Unavailable Encounter Details Date Type Department Care Team (Late st Contact Info) Description 01/26/2025 Orders Only [facility] CH[facility] MED & PEDS [address] [place] [address] Provider, MD Kelvin Social History Tobacco Use [...] Encounters Date Type Department Care Team ([facility] st Contact Info) Description 08/24/2025 11:15 AM EST Office Visit [facility] MED & PEDS 505 [place] [address] Morena Forte FNP 505 [place] [address] documented as of this encounter Goals Goal [...] AM EDT Narrative 01/28/2025 1:03 PM EDT [address] [address] [address] Scan Report Signed Patient: Dru Dorsey MR#: [id number] 1 : 1965 Acct:[id number] Age/Sex: 59 / M ADM Date: 01/28/25 Loc: HO.CT Attending Dr: Linda Ulloa MD Ordering Physician: Linda Ulloa MD Date of Service: 01/28/25 Procedure(s): CT chest w IV con Accession Number(s): [id number] cc: Linda Ulloa MD; Morena Forte [facility] Report Number: [id number]: Total DLP = 220.00 mGy-cm EXAMINATION: CT [...] 01/28/25 1301 DD/ 1149 TD/TT: 01/28/25 1200 Weight Loss Consultant: Procedure Note Donotuseinterpreter, Image - 01/28/[address] [place] [address] [address] Scan Report Signed Patient: Dru Dorsey [facility]#: [id number] 1 : 1965Acct:[id number] Age/Sex: 59 / MADM Date: 01/28/25 Loc: HO.CT Attending Dr: Linda Ulloa MD Ordering Physician: Linda Ulloa MD Date of Service: 01/28/25 Procedure(s): CT chest w IV con Accession Number(s): [id number] cc: Linda Ulloa MD; Morena [facility]e [facility] Report Number: [id number]: Total DLP = 220.00 mGy-cm EXAMINATION: CT [...] 01/28/25 1301 DD/ 1149 TD/TT: 01/28/25 1200 Weight Loss Consultant: [facility] External Provider IMG CT PROCEDURES Final [...] documented as of this encounter Care Teams Title Attorney Relationship Specialty Start Date End Date Morena Forte FNP [address] [place] [address] PCP - General Family Medicine 09/27/22 Jeremiah Humphrey Community Health Worker 04/18/24 Raj Galvin MD [address] [address] Nephrology 08/25/24 Ely Mesa [address] [place] [address] Thoracic Surgery 08/25/24 documented as of this encounter
--- OUTSIDE RECORDS SUMMARY | 2025-08-17 18:13 | XMS_ITS | Encounter Summary ---
Author Organization [employer] Address 75 [facility] 7t [place] [address] Care Team Providers Care Cold Reduction Roller Name Role Phone CyndiroyerMorena Primary Care Provider Jeremiah Humphrey Unavailable Raj Galvin MD Unavailable [phone] Ely Mesa Unavailable Encounter Details Date Type Department Care Team (Late st Contact Info) Description 04/29/2025 Orders Only [facility] [address] [place] [address] Linda Ulloa MD [address] [place] [address] Social History Tobacco Use Types Packs/Day [...] Description 08/24/2025 11:15 AM EST Office Visit [facility] CHC MED & PEDS 505 [place] [address] Morena Forte, TERI 505 [place] [address] documented as of this encounter Goals Goal [...] documented as of this encounter Care Teams Cold Reduction Roller Relationship Specialty Start Date End Date Morena Forte FNP 230 [place] [address] PCP - General Family Medicine 09/27/22 Jeremiah Humphrey Community Health Worker 04/18/24 Raj Galvin MD 100 [facility] 200 [place] [phone] Nephrology 08/25/24 Ely Mesa [address] [place] [address] Thoracic Surgery 08/25/24 documented as of this encounter
--- OUTSIDE RECORDS SUMMARY | 2025-08-17 18:13 | XMS_ITS | Encounter Summary ---
Author Organization [employer] Address 75 [facility] [address] 7t [place] [address] Care Team Providers Care Hose Finisher Name Role Phone Morena Forte Primary Care Provider [phone] Jeremiah Humphrey Unavailable Raj Galvin MD Unavailable [phone] Ely Mesa Unavailable Encounter Details Date Type Department Care Team (Late st Contact Info) Description 05/12/2025 Orders Only [facility] CHC MED & PEDS [address] [place] [address] Provider, MD Kelvin Social History Tobacco Use [...] t he electric, gas, oil or water [employer] threatened to shut off services in your [...] Upcoming Encounters Date Type Department Care Team ([facility] Contact Info) Description 08/24/2025 11:15 AM EST Office Visit [facility] MED & PEDS 505 [place] [address] Morena Forte FNP 505 [place] [address] documented as of this encounter Goals Goal [...] documented as of this encounter Care Teams Hose Finisher Relationship Specialty Start Date End Date Morena Forte FNP [address] [place] [address] PCP - General Family Medicine 09/27/22 Jeremiah Humphrey Community Health Worker 04/18/24 Raj Galvin MD [address] [address] Nephrology 08/25/24 Ely Mesa [address] [place] [address] Thoracic Surgery 08/25/24 documented as of this encounter
--- OUTSIDE RECORDS SUMMARY | 2025-08-17 18:13 | XMS_ITS | Encounter Summary ---
Author Organization [employer] Address 75 [facility] 7t [place] [address] Care Team Providers Care Teacher Adventure Education Name Role Phone Morena Forte Primary Care Provider [phone] Jeremiah Humphrey Unavailable Raj Galvin MD Unavailable Ely Mesa Unavailable Reason for Visit * Reason Onset Date Comments PT1 03/11/2025 Encounter Details Date Type Department Care Team (Late st Contact Info) Description 03/11/2025 Telephone [facility] MEDICINE 230 [place] [address] Morena Forte FNP [address] [place], [place] [phone] PT1 Social History Tobacco Use Types Packs/Day [...] modify PT1 , 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 Contact pt at [phone] * Telephone Encounter - Cris Sweeney - 03/11/2025 8:41 AM EDT Patient calling requesting PT1 Home Address verified: Y/N: Yes Provider name or facility name: [address] [place] [id number] - [facility] Escort needed: Y/N: No Do you have a wheelchair: No If yes- Manual or electric: N/A Visits: (3x monthly) Patient calling requesting PT1 Home Address verified: Y/N: Yes Provider name or facility name: [address] [place] [address] Escort needed: Y/N: No Do you have a wheelchair: Y/N: No If yes- Manual or electric: N/A Visits: (3x monthly) documented in this encounter Plan of Treatment Upcoming Encounters Date Type Department Care Team (Late st Contact Info) Description 08/24/2025 11:15 AM EST Office Visit [facility] CHC MED & PEDS 505 [place], [place] [phone] Morena Forte FNP 505 [place] [address] documented as of this encounter Goals Goal [...] documented as of this encounter Care Teams Teacher Adventure Education Relationship Specialty Start Date End Date Morena Forte FNP [address] [place] [address] PCP - General Family Medicine 09/27/22 Jeremiah Humphrey Community Health Worker 04/18/24 Raj Galvin MD 100 [facility] 200 [place] [address] Nephrology 08/25/24 Ely Mesa [address] [place] [address] Thoracic Surgery 08/25/24 documented as of this encounter
--- OUTSIDE RECORDS SUMMARY | 2025-08-17 18:13 | XMS_ITS | Clinical Summary ---
Author Organization [facility] Address [address] [place] [address] Phone Care Team Providers Care Car Installations Supervisor Name Role Phone Morena Forte RN [...] received adjuvant chemotherapy with Dr. Ulloa at [facility]. The patient's most recent chest CT [...] completed adjuvant chemotherapy with Dr. Ulloa at [facility]. The patient's most recent surveillance chest [...] this potential issue. Multiple pulmonary nodules 12/07/2022 Immunizations Immunization Administration Dates Next Due [employer] SARS-CoV-2 COVID-19, mRNA, LNP-S, preservative free 12/10/2020,11/19/2020 Surgical History Surgery Date Site/Laterality Comments HIP ARTHROPLASTY PROCEDURE: HISTORICAL HIP REPLACEMENT CARPAL TUNNEL RELEASE Bilateral PROCEDURE: HISTORICAL CARPAL TUNNEL REL COLONOSCOPY N/A PROCEDURE: HISTORICAL COLONOSCOPY HERNIA REPAIR PROCEDURE: HISTORICAL HERNIA REPAIR/ING APPENDECTOMY PROCEDURE: [place] APPENDECTOMY Medical History Medical History Date Comments [...] breathing COPD (chronic obstructive pu lmonary disease) (CMS/HCC V24, CMS/HCC V28) DX:COPD (chronic o bstructive pulmonary disease) (HCC) Lung cancer ([facility] V24, [facility] V28) DX:Lung cancer (HCC) Mild intermittent asthma, uncomplicated DX:Mild intermittent asthma, uncomplicated Family History Medical History Relation Name Comments No Known Problems Father Diabetes Mother Hypertension Mother Relation Name Status Comments Father Mother Social History Tobacco Use Types Packs/Day Years Used Date Smoking Tobacco: Some Days Cigarettes 1 47.8 Started: 10/22/1977 Smokeless Tobacco: Never Alcohol Use [...] 02/05/1984 Zoster Vaccines (1 of 2) 02/05/1984 RSV Immunization Adult Patients (1 - Risk 50-74 years 1-dose series) 2015 COVID-19 Vaccine (3 - Pfizer risk series) 01/07/2021 12/10/2020, 11/19/2020 HIV Screening 11/20/2023 Hepatitis C Screening 11/20/2023 Lung Cancer Screening (Low Dose CT) 11/20/2023 Social Influencers of Health Screening 11/20/2023 Depression Screening 10/22/2024 Hepatitis B Vaccines (1 of 3 - Risk 3-dose series) 2025 Diabetes: Annual Urine Albumin-Creatinine Ratio [...] complete this topic [place] Advance Directives Documents on File Type Date Recorded Patient Purchasing Expeditor Expl anation Health Care Decision (hx) 08/04/2018 [...] (hx) 08/04/2018 AD ORR DIRECTIVE Care Teams Car Installations Supervisor Relationship Specialty Start Date End Date Morena Forte RN [address] [address] PCP - General 03/12/24
--- OUTSIDE RECORDS SUMMARY | 2025-08-17 18:13 | XMS_ITS | Encounter Summary ---
Author Organization [employer] Address 75 [facility] 7t [place] [address] Care Team Providers Care Engine Repairer Name Role Phone Morena Forte Primary Care Provider [phone] Jeremiah Humphrey Unavailable Raj Galvin MD Unavailable [phone] Ely Mesa Unavailable Reason for Visit * Reason Onset Date Comments PT1 05/28/2023 Encounter Details Date Type Department Care Team (Late st Contact Info) Description 05/28/2023 Telephone [facility] MEDICINE 230 [place] [address] Morena Forte FNP 505 [place], [place] [phone] PT1 Social History Tobacco Use Types Packs/Day [...] be a van transportation not a car Location:[address] [place] [address] Specialty: Podiatry Date&Time:N/a Key Account Representative:No Pt will be using a cane PT1 Date: 06/01/2023 Time: 2:15 pm address: [address] [place] [address] specialty: Pulmonogists air reduction equipment operator: N/A Wheelchair:N/A documented in this encounter Plan of Treatment Upcoming Encounters Date Type Department Care Team (Late st Contact Info) Description 08/24/2025 11:15 AM EST Office Visit [facility] MED & PEDS 505 [place] [address] Morena Forte FNP 505 [place] [address] documented as of this encounter Visit Diagnoses Not on filedocumented in this encounter Additional Health Concerns Assessment Noted Time PHQ-9 Depression Total Score: 16 023 9:44 AM EDT documented as of this encounter Care Teams Engine Repairer Relationship Specialty Start Date End Date Morena Forte FNP 230 [place] [address] PCP - General Family Medicine 09/27/22 Jeremiah Humphrey Community Health Worker 04/18/24 Raj Galvin MD 100 [facility] 200 [place] [address] Nephrology 08/25/24 Ely Mesa [address] [place] [address] Thoracic Surgery 08/25/24 documented as of this encounter
--- OUTSIDE RECORDS SUMMARY | 2025-08-17 18:13 | XMS_ITS | Encounter Summary ---
Author Organization [employer] Address 75 [facility] 7t [place] [address] Care Team Providers Care Sap Security Architect Name Role Phone Morena Forte Primary Care Provider [phone] Jeremiah Humphrey Unavailable Raj Galvin MD Unavailable [phone] Ely Mesa Unavailable Reason for Visit * Reason Onset Date Comments pt1 12/20/2022 Encounter Details Date Type Department Care Team (Late st Contact Info) Description 12/20/2022 Telephone [facility] MEDICINE 230 [place] [address] Morena Forte FNP [address] [place], [place] [phone] pt1 Social History Tobacco Use Types Packs/Day [...] / denial letter via mail. PT-1 Request [id number] Pending - [facility] 299 [facility] [phone] * Telephone Encounter - Dami Nam - 12/20/2022 1:54 PM EST Tc from pt requesting pt1 Location: [facility] 299 [facility] [address], [place] [address] Specialty: left lung surgery Time:9: 30 am, 9 am, 6 am Date:01/02/23, 01/08/23, 01/09/23 Salesperson Recreational Vehicles: no wheelchair accessible : n/a Please contact pt at [phone] documented in this encounter Plan of Treatment Upcoming Encounters Date Type Department Care Team (Late st Contact Info) Description 08/24/2025 11:15 AM EST Office Visit [facility] CHC MED & PEDS 505 [place], [place] [phone] Morena Forte FNP 505 [place] [address] documented as of this encounter Visit Diagnoses Not on filedocumented in this encounter Care Teams Sap Security Architect Relationship Specialty Start Date End Date Morena Forte FNP 230 [place] [address] PCP - General Family Medicine 09/27/22 Jeremiah Humphrey Community Health Worker 04/18/24 Raj Galvin MD 100 [facility] [address] [place] [address] Nephrology 08/25/24 Ely Mesa [address] [place], [place] [phone] Thoracic Surgery 08/25/24 documented as of this encounter
--- OUTSIDE RECORDS SUMMARY | 2025-08-17 18:13 | XMS_ITS | Encounter Summary ---
Author Organization [employer] Address 75 [facility] 7t [place] [address] Care Team Providers Care Plastic Products Sales Representative Name Role Phone Morena Forte Primary Care Provider Jeremiah Humphrey Unavailable Raj Galvin MD Unavailable [phone] Ely Mesa Unavailable Reason for Visit * Reason Comments Med Refill Encounter Details Date Type Department Care Team ([facility] st Contact Info) Description 03/04/2025 Refill [facility] CHC MED & PEDS [address] [place], [place] [phone] Morena Forte FNP 505 [place], [place] [phone] Lower extremity edema Social History Tobacco Use [...] Office Visit [facility] MED & PEDS 505 [place] [address] Morena Forte FNP 505 [place] [address] documented as of this encounter Goals Goal [...] documented as of this encounter Care Teams Plastic Products Sales Representative Relationship Specialty Start Date End Date Morena Forte FNP 230 [place] [address] PCP - General Family Medicine 09/27/22 Jeremiah Humphrey Community Health Worker 04/18/24 Raj Galvin MD [address] [address] Nephrology 08/25/24 Ely Mesa [address] [place] [address] Thoracic Surgery 08/25/24 documented as of this encounter
--- OUTSIDE RECORDS SUMMARY | 2025-08-17 18:13 | XMS_ITS | Encounter Summary ---
Author Organization [employer] Address 75 [facility] 7t [place] [address] Care Team Providers Care Photographic Specialist Name Role Phone Morena Forte Primary Care Provider [phone] Jeremiah Humphrey Unavailable Raj Galvin MD Unavailable [phone] Ely Mesa Unavailable Encounter Details Date Type Department Care Team (Late st Contact Info) Description 08/17/2025 Orders Only [facility] EXTERNAL DATA DEPARTMENT Provider, Generic External Data Social History Tobacco Use Types Packs/Day Years [...] the past 12 months, has t he Carbon[employer], [employer], oil or water [employer] threatened to shut off services in your [...] [facility] MED & PEDS 505 [place] [address] Morena Forte, SENIOR INDUSTRIAL ENGINEER 505 [place] [address] documented as of this encounter Goals Goal Patient Goal Type Associated Problems Recent Progress Patient-Stated? Author Blood Pressure < 140/90 Blood Pressure 148/70( 025 9:52 AM EDT) No Eve Oliveira, PharmD documented as of this encounter Procedures Procedure Name Priority Date/Time Associated Diagnosis Comments BASIC METABOLIC PANEL Routine 08/17/2025 3:00 PM EDT URINALYSIS WITH REFLEX TO MICROSCOPIC Routine 08/17/2025 2:57 PM EDT URINE PROTEIN, TOTAL, RANDOM (W/O CREATININE) Routine 08/17/2025 2:57 PM EDT CREATININE, RANDOM URINE Routine 08/17/2025 2:57 PM EDT URINALYSIS, COMPLETE Routine 08/17/2025 2:57 PM EDT documented in this encounter Results * (ABNORMAL) Basic Metabolic Panel (08/17/2025 3:00 PM EDT) Pathologist [facility] Sodium 143 135 - 145 mmol/L [facility] Potassium 5.0 3.3 - 5.1 mmol/L [facility] Chloride 104 96 - 108 mmol/L [facility] Carbon Dioxide 32(H) 22 - 29 mmol/L [facility] Anion Gap 12 12 - 20 [facility] Urea Nitrogen (BUN) 17(H) 9 - 16 mg/dL [facility] Creatinine, Serum 1.14 0.5 - 1.4 mg/dL [facility] Estimated Glomerular Filt Rate >60 [facility] Comment:Chronic Kidney Disea se: Estimated GFR < 60 mL/min/1.01q6Esymcq Kidney Disease: Estimated GFR < 15 mL/min/1.73m2 Glucose 80 60 - 115 mg/dL [facility] Calcium 10.3(H) 8.4 - 10.2 mg/dL [facility] 08/17/2025 3:00 PM EDT 08/17/2025 3:00 PM EDT us Generic External Data Provider LAB BLOOD ORDERAB LES Final Result [facility] [address] [place], [place] [phone] * (ABNORMAL) Urinalysis Complete (08/17/2025 2:57 PM EDT) Color Urine Yellow [facility] Appearance Urine Clear [facility] PH 6.5 5.0 - 9.0 [facility] Glucose Urine UA Negative Negative mg/dL [facility] Urine Blood Moderate (2+)(A) Negative [facility] Specific [place] - Urine 1.010 1.005 - 1.025 [facility] Urine Protein 100 (2+)(A) Neg-Trace mg/dL [facility] Urine Ketones Negative Negative mg/dL [facility] Nitrite Urine Negative Negative [facility] Leukocyte Esterase Urine Trace(A) Negative [facility] RBC Urine 11-20(A) 0 - 2 /HPF [facility] Urine WBC 11-20(A) 0 - 5 /HPF [facility] Urine Squamous Epithelial Cell 0-2 0 - 2 /HPF [facility] Urine Bacteria None Seen None Seen [facility] Hyaline Casts, Urine 0-2 0 - 2 /LPF [facility] 08/17/2025 2:57 PM EDT 08/17/2025 3:14 PM EDT us Generic External Data Provider LAB URINE ORDERAB LES Final Result [facility] [address] [place] [phone] * (ABNORMAL) Urinalysis with Reflex to Microscopic (08/17/2025 2:57 PM EDT) Color Urine Yellow [facility] Appearance Urine Clear [facility] PH 6.5 5.0 - 9.0 [facility] Glucose Urine UA Negative Negative mg/dL [facility] Urine Blood Moderate (2+)(A) Negative [facility] Specific [place] - Urine 1.010 1.005 - 1.025 [facility] Urine Protein 100 (2+)(A) Neg-Trace mg/dL [facility] Urine Ketones Negative Negative mg/dL [facility] Nitrite Urine Negative Negative [facility] Leukocyte Esterase Urine Trace(A) Negative [facility] 08/17/2025 2:57 PM EDT 08/17/2025 3:14 PM EDT us Generic External Data Provider LAB URINE ORDERAB LES Final Result Performing Organization Address [facility] Co de Phone Number [facility] [address] [place] [phone] * (ABNORMAL) Urine Protein, Total, Random without Creatinine (08/17/2025 2:57 PM EDT) Protein, Total, Random Urine 109(H) <12 mg/dL [facility] 08/17/2025 2:57 PM EDT 08/17/2025 3:14 PM EDT us Generic External Data Provider LAB URINE ORDERAB LES Final Result Performing Organization Address [facility] de Phone Number [facility] [address] [place] [phone] * Creatinine, Random Urine (08/17/2025 2:57 PM EDT) Creatinine, Urine 56.61 mg/dL [facility] 08/17/2025 2:57 PM EDT 08/17/2025 3:14 PM EDT Generic External Data Provider LAB URINE ORDERAB LES Final Result Performing Organization Address [facility] de Phone Number [facility] [address] [place] [phone] documented in this encounter Visit Diagnoses Not on filedocumented in this encounter Additional Health Concerns Assessment Noted Time PHQ-9 Depression Total Score: 8 06/30/20 24 11:12 AM EDT documented as of this encounter Care Teams Photographic Specialist Relationship Specialty Start Date End Date Morena Forte FNP [address] [place] [address] PCP - General Family Medicine 09/27/22 Jeremiah Humphrey Community Health Worker 04/18/24 Raj Galvin MD [address] [phone] Nephrology 08/25/24 Ely Mesa [address] [place] [address] Thoracic Surgery 08/25/24 documented as of this encounter
--- OUTSIDE RECORDS SUMMARY | 2025-08-17 18:13 | XMS_ITS | Encounter Summary ---
Author Organization [employer] Address 75 [facility] 7t [place] [address] Care Team Providers Care Parts Remover Name Role Phone Morena Forte Primary Care Provider [phone] Jeremiah Humphrey Unavailable Raj Galvin MD Unavailable [phone] Ely Mesa Unavailable Encounter Details Date Type Department Care Team (Late st Contact Info) Description 01/18/2023 Telephone [facility] MEDICINE 230 [place] [address] Morena Forte FNP [address] [place], [place] [phone] Social History Tobacco Use Types Packs/Day Years [...] Description 08/24/2025 11:15 AM EST Office Visit [facility] MED & PEDS 505 [place], [place] [phone] Morena Forte FNP 505 [place] [address] documented as of this encounter Visit Diagnoses Not on filedocumented in this encounter Care Teams Parts Remover Relationship Specialty Start Date End Date Morena Forte FNP 230 [place] [address] PCP - General Family Medicine 09/27/22 Jeremiah Humphrey Community Health Worker 04/18/24 Raj Galvin MD 100 [facility] 200 [place] [phone] Nephrology 08/25/24 Ely Mesa [address] [place] [address] Thoracic Surgery 08/25/24 documented as of this encounter
--- OUTSIDE RECORDS SUMMARY | 2025-08-17 18:13 | XMS_ITS | Data Portability ---
Author Organization ISRAEL Gabe Lanier [facility], [facility] Address [address] [place] [address] Care Team Providers Care Clinical Product Specialist Name Role Phone HUBER BLANKENSHIP Referring Provider [phone] [facility] (DENT[facility]) Primary Care Prov ider Assessment [...] a4ajBk vP9nXo QUaueC m3YtLR FvZlgJ JJ8mAn HZtai3 [id number] AC0Kqa 3%2BHV qeiKiQ trMwF INTERFACE [facility] Office [address] [facility] [address], [place], [address], 07/24/2024 14:30:25 07/24/20 24 07/24/2024 XR, knee, 3 view http:/ [email or web address] ?Encry pted=s hAaTro YD8dLq bEUv6g %2BXZw aYqtaq 0bqfl% 2Fg9IQ a4ajBk vP9nXo QUaueC m3YtLR FvZlgJ JJ8mAn HZtai3 2f1323 AC0Kqa 3%2BHV qeiKiQ trMwF INTERFACE [facility] [address], [place], [address], 07/24/2024 14:30:27 Result Notes None recorded. Problems Name Problem SNOMED Code Status Onset Date Resolution Date Notes Provider Name and Address Organization Details Recorded Time History of left total knee replacemen t 4988629080086 105 Active 2023 Franklyn Eagle MD [address], [place], [address] , [facility] 14:40:55 Problem Notes None recorded. Procedures Surgical History Date Name Laterality Status Provider Name and Address Organization Details Recorded Time 46634 Therapeutic Exercise (1:1) completed David Weiss DPT [address] [facility] [place] [facility], [place], [address], [facility] 08/18/2024 09:47:31 4 99479 Therapeutic Exercise (1:1) completed Emy Lora PTA [address] [facility] [place] [facility], [place], [address], [facility] 08/15/2024 14:23:27 4 03766: Hot or Cold Pack completed Emy Lora PTA [address], [place], [address], [facility] 08/15/2024 14:28:05 4 77265: Manual therapy completed Emy Lora PTA [address], [place], [address], [facility] 08/15/2024 14:23:35 34091 Therapeutic Exercise (1:1) completed David Weiss DPT [address], [place], [address], [facility] 08/11/2024 10:52:06 4 01370 Therapeutic Exercise (1:1) completed CHADWICK AbdullahiT [address] [facility], [place], [address], [facility] 08/06/2024 13:06:24 4 78933 Therapeutic Exercise (1:1) completed Emy Lora, METEOROLOGY PROFESSOR [address] [facility] [place], [place], [address], [facility] 08/05/2024 14:23:00 4 97361: Hot or Cold Pack completed Emy Lora METEOROLOGY PROFESSOR [address] [facility] [place], [place], [address], [facility] 08/05/2024 14:23:05 4 18694: Therapeutic Activities (1:1) completed CHADWICK AbdullahiT [address] [facility], [place], [address], [facility] 07/30/2024 17:25:57 4 17005 Therapeutic Exercise (1:1) completed CHADWICK AbdullahiT [address] [facility] [place], [place], [address], [facility] 07/30/2024 17:25:51 4 11138: Hot or Cold Pack completed David Weiss DPT [address], [place], [address], [facility] 07/29/2024 09:18:32 4 09592 Therapeutic Exercise (1:1) completed David Weiss DPT [address] [facility] [place], [place], [address], [facility] 07/28/2024 09:09:40 4 71391: Hot or Cold Pack completed David Weiss DPT [address] [facility] [place], [place], [address], [facility] 07/28/2024 09:09:40 4 73927 Therapeutic Exercise (1:1) completed Emy Lora METEOROLOGY PROFESSOR [address] [facility] [place], [place], [address], [facility] 07/23/2024 14:18:07 4 93966: Hot or Cold Pack completed Emy Lora METEOROLOGY PROFESSOR [address], [place], [address], [facility] 07/23/2024 14:18:13 4 72470 Therapeutic Exercise (1:1) completed David Weiss DPT [address] [facility] [place], [place], [address], [facility] 07/18/2024 14:56:57 4 91984: Hot or Cold Pack completed David Weiss DPT [address], [place], [address], [facility] 07/17/2024 09:25:22 4 45326: Gait training completed David Weiss DPT [address] [facility] [place], [place], [address], [facility] 07/18/2024 14:57:04 4 04393 Therapeutic Exercise (1:1) completed David Weiss DPT [address], [place], [address], [facility] 07/16/2024 14:20:05 4 27979: Hot or Cold Pack completed David Weiss DPT [address] [facility] [place], [place], [address], [facility] 07/15/2024 10:03:58 4 32904 Therapeutic Exercise (1:1) completed David Weiss DPT [address] [facility] [place], [place], [address], [facility] 07/10/2024 11:09:13 4 26407: Hot or Cold Pack completed David Weiss DPT [address], [place], [address], [facility] 07/10/2024 11:09:13 4 63434 Therapeutic Exercise (1:1) completed Emy Lora, METEOROLOGY PROFESSOR [address], [place], [address], [facility] 07/09/2024 14:17:25 4 98424: Hot or Cold Pack completed Emy Lora METEOROLOGY PROFESSOR [address], [place], [address], [facility] 07/09/2024 14:19:16 4 06862 Therapeutic Exercise (1:1) completed Emy Lora, METEOROLOGY PROFESSOR [address], [place], [address], [facility] 07/04/2024 15:12:36 4 01252: Hot or Cold Pack completed Emy Lora METEOROLOGY PROFESSOR [address], [place], [address], [facility] 07/04/2024 15:12:41 4 44153 Therapeutic Exercise (1:1) completed Eddi Vallecillo PTA [address], [place], [address], [facility] 07/02/2024 14:27:49 4 38811: Hot or Cold Pack completed Eddi Vallecillo METEOROLOGY PROFESSOR [address], [place], [address], [facility] 07/02/2024 14:54:49 4 77443 Therapeutic Exercise (1:1) completed David Weiss DPT [address], [place], [address], [facility] 06/27/2024 15:35:14 4 88135: Low complexity PT Eval completed David Weiss, DPT [address], [place], [address], [facility] 06/27/2024 15:34:37 4 02356 Therapeutic Exercise (1:1) completed CHADWICK AbdullahiT [address], [place], [address], [facility] 06/04/2024 13:08:24 4 53208: Low complexity PT Eval completed David Weiss, DPT [address], [place], [address], [facility] 06/04/2024 13:08:27 Imaging Results None recorded. Procedure Notes None recorded. Medical Equipment None Reported. Allergies Allergen ID Allergen Name Allergen Category Reaction Reaction Severity Criticality Documentation Date Start Date Code Code System Note Provider Name and Address Organization Details Recorded Time 63699 Product containin g penicilli n (product) medicatio n Not available Not available Not available 12/24/20232019 35798 8001 SNOMED Not Available [facility] 10:54:17 Medications Name Sig Start Date [...] ICD10 Code Diagnosis IMO Codes Diagnosis Note [id number] CAMPOS Villeda 2[address] [place] [address] 06/03/2024 08:54:33 06/24/2024 13:05:50 Osteoarthritis of left knee joint 5868754369 47205 M17.12 [id number] MD Jenni Brown 2nd floor [address] [place] [address] 06/03/2024 09:03:11 06/24/2024 13:05:40 Osteoarthritis of left knee joint 1867397515 06170 M17.12 [id number] David Weiss [facility] on PT [address] [place] [address] 06/04/2024 12:26:27 06/04/2024 13:20:33 Osteoarthritis of left knee joint 7434523123 52898 M17.12 [id number] David Weiss [facility] on [address] [place] [address] 06/27/2024 14:03:01 06/27/2024 14:49:48 History of left total knee replacement 5710288350 661920 Z96.652 Z47.1 [id number] HARDY Dykese 2nd floor [address] [place] [address] 06/26/2024 10:13:16 07/21/2024 14:50:44 History of left total knee replacement 7704010464 188444 Z96.637 [id number] Eddi Vallecillo, METEOROLOGY PROFESSOR [facility] [address] [place] [address] 07/02/2024 13:09:05 07/02/2024 16:49:14 History of left total knee replacement 5268729669 567313 Z96.652 Z47.1 [id number] Emy Lora, METEOROLOGY PROFESSOR [facility] [address] [place] [address] 07/04/2024 14:29:22 07/04/2024 15:58:17 History of left total knee replacement 8818497175 342329 Z96.652 Z47.1 [id number] Emy Lora, METEOROLOGY PROFESSOR [facility] [address] [place] [address] 07/09/2024 13:28:20 07/09/2024 14:29:46 History of left total knee replacement 0365208176 948697 Z96.652 Z47.1 [id number] David Weiss, DPT [facility] [address] [place] [address] 07/11/2024 14:08:48 07/11/2024 15:42:43 History of left total knee replacement 0664716622 496315 Z96.652 Z47.1 [id number] David Weiss, DPT [facility] [address] [place] [address] 07/16/2024 13:23:13 07/16/2024 14:25:33 History of left total knee replacement 7796364667 981775 Z96.652 Z47.1 [id number] David Weiss, DPT [facility] [address] [place] [address] 07/18/2024 13:26:10 07/18/2024 15:06:24 History of left total knee replacement 1239779028 073226 Z96.652 Z47.1 [id number] Emy Lora, METEOROLOGY PROFESSOR [facility] PT [address] [facility] [address] 07/23/2024 13:38:31 07/23/2024 14:36:16 History of left total knee replacement 4871332571 055988 Z96.652 Z47.1 [id number] MD Jenni Brown 2nd floor [address] [place] [address] 07/24/2024 14:13:47 08/08/2024 14:44:20 History of left total knee replacement 4560632110 615462 Z96.524 [id number] David Weiss, DPT [facility] [address] [facility] [place] [address] 07/28/2024 15:25:42 07/28/2024 17:21:25 History of left total knee replacement 1741438712 038671 Z96.652 Z47.1 [id number] Davidsimona Hadleyi, DPT [facility] [address] [place] [address] 07/30/2024 13:18:20 07/30/2024 15:20:45 History of left total knee replacement 8915745753 409087 Z96.652 Z47.1 [id number] Emy Lora, METEOROLOGY PROFESSOR [facility] [address] [place] [address] 08/05/2024 13:40:14 08/05/2024 14:25:57 History of left total knee replacement 2850801964 131921 Z96.652 Z47.1 [id number] Davidsimona Hadleyi, DPT [facility] [address] [place] [address] 08/07/2024 14:12:37 08/07/2024 15:09:39 History of left total knee replacement 5074934813 617333 Z96.652 Z47.1 [id number] Emy Lora, METEOROLOGY PROFESSOR [facility] on PT [address] [facility] [address] 08/13/2024 16:28:28 08/13/2024 17:33:06 History of left total knee replacement 0958000239 547841 Z96.652 Z47.1 [id number] Emy Lora, LEIGH ANN [facility] on PT [address] [place] [address] 08/15/2024 13:39:23 08/18/2024 08:00:07 History of left total knee replacement 0197504296 982432 Z96.652 Z47.1 [id number] David Weiss DPT [facility] on [address] [place] [address] 08/19/2024 14:31:48 08/19/2024 15:33:18 History of left total knee replacement 9048010758 068815 Z96.652 Z47.1 Health Concerns Section Related Observation LastModified by Organization Detai ls LastModified Time None Recorded Concern Status LastModified by Organization Details LastModified Time None Recorded Advance Directives Directive None Recorded Payers Insurance Date Sequence Insurance Name Policy Number Policy Jones Covered Member ID Jones Member ID Guarantor Name 08/18/2024 1 [place] [facility] Dru Dorsey [id number] Dru Dorsey Notes Date Note Type Note Provider Name and Address Organization Details Recorded Time 08/05/2024 text/html Patient reports he is very stiff today and can barely move his leg. Emy Lora, METEOROLOGY PROFESSOR [address], [place], [address], [facility] 08/05/2024 14:23:43 08/07/2024 text/html Patient reports falling while at the dentist yesterday. States having a small abrasion over the proximal tibia, but is able to weight bear normally. Reports that the knee is sore, but wants to try to perform PT exercises. David Weiss DPT [address], [place], [address], [facility] 08/07/2024 15:06:54 08/13/2024 text/html Patient reports he is having a bad day. David Weiss DPT [address], [place], [address], [facility] 08/14/2024 09:10:26 08/15/2024 text/html Patient continues to report he is not doing well. He has increased pain in his knee that limits his ADLs. Emy Lora, METEOROLOGY PROFESSOR [address] [facility] [address], [place], [address], [facility] 08/15/2024 14:29:11 08/19/2024 text/html Patient reports that the knee is improving and less stiff feeling today. David Weiss, DPT [address] [facility] [address], [place], [address], [facility] 08/19/2024 15:28:49
--- OUTSIDE RECORDS SUMMARY | 2025-08-17 18:13 | XMS_ITS | Encounter Summary ---
Author Organization [employer] Address [address] [facility] 7t [place] [address] Care Team Providers Care Liturgical Music Director Name Role Phone Morena Forte Primary Care Provider [phone] Jeremiah Humphrey Unavailable Raj Galvin MD Unavailable [phone] Unavailable Reason for Visit * Reason Onset Date Comments PT1 02/26/2023 Encounter Details Date Type Department Care Team (Late st Contact Info) Description 02/26/2023 Telephone [facility] MEDICINE [address] [place] [address] Morena Forte FNP [address] [place], [place] [phone] PT1 Social History Tobacco Use Types Packs/Day [...] / denial letter via mail. PT-1 Request [id number] Pending - [facility] [address] [facility] [address] PT-1 Request [id number] Pending - [facility] [address] [facility] [address] PT-1 Request [id number] Pending - [facility] [address] [facility] [address] PT-1 Request [id number] Pending - [facility] General Surgeons [address] [place] [address] [place] * Telephone Encounter - Yi Kingston - 03/20/2023 10:05 AM EDT Patient will recieve approval / denial letter via mail. PT-1 Request [id number] Pending - [facility] [address] [facility] PT-1 Request [id number] Pending - [facility] [address] [facility] [address] PT-1 Request [id number] Pending - [facility] [address] [facility] [address] * Telephone Encounter - Radha Turk - 02/26/2023 8:40 AM EDT Tc from pt requesting to renew PT1 forms that On February: PT1 Name of facility: [facility] Specialty: ALL FUTURE APPT's Location: [address] [place], [place] Date: n/a Time: n/a fax: n/a Phone: n/a wheelchair: n/a Food Service Coordinator: n/a PT1 Name of facility: [facility] Specialty: ALL FUTURE APPT's Location: [address] [place] [address] Date: n/a Time: n/a fax: n/a Phone: n/a wheelchair: n/a Food Service Coordinator: n/a PT1 Name of facility: [facility] Specialty: ALL FUTURE APPT's Location: [address] [facility] [address], [place] [address] Date: n/a Time: n/a fax: n/a Phone: n/a wheelchair: n/a Food Service Coordinator: n/a PT1 Name of facility: [facility] General Surgeons Specialty: ALL FUTURE APPT's Location: [address] [place] [address] [place], [place] Date: n/a Time: n/a fax: n/a Phone: n/a wheelchair: n/a Food Service Coordinator: n/a FOR ALL FUTURE APPT's!! Please contact pt at [phone] documented in this encounter Plan of Treatment Upcoming Encounters Date Type Department Care Team (Late st Contact Info) Description 08/24/2025 11:15 AM EST Office Visit [facility] MED & PEDS [address] [place] [address] Morena Forte FNP [address] [place] [address] documented as of this encounter Visit Diagnoses Not on filedocumented in this encounter Care Teams Liturgical Music Director Relationship Specialty Start Date End Date Morena Forte FNP [address] [place] [address] PCP - General Family Medicine 09/27/22 Jeremiah Humphrey Community Health Worker 04/18/24 Raj Galvin MD [address] [facility] 200 [place] [address] Nephrology 08/25/24 Ely Mesa [address] [place] [address] Thoracic Surgery 08/25/24 documented as of this encounter
--- OUTSIDE RECORDS SUMMARY | 2025-08-17 18:13 | XMS_ITS | Encounter Summary ---
Author Organization [employer] Address [address] [facility] 7t [place] [address] Care Team Providers Care Part Maker Name Role Phone Morena Forte Primary Care Provider [phone] Jeremiah Humphrey Unavailable Raj Galvin MD Unavailable [phone] [address] Unavailable Encounter Details Date Type Department Care Team (Late st Contact Info) Description 02/15/2023 Telephone [facility] MEDICINE [address] [place] [address] Morena Forte FNP [address] [place], [place] [phone] Social History Tobacco Use Types Packs/Day Years [...] Description 08/24/2025 11:15 AM EST Office Visit [facility] MED & PEDS [address] [place], [place] [phone] Morena Forte FNP 505 [place] [address] documented as of this encounter Visit Diagnoses Not on filedocumented in this encounter Care Teams Part Maker Relationship Specialty Start Date End Date Morena Forte FNP [address] [place] [address] PCP - General Family Medicine 09/27/22 Jeremiah Humphrey Community Health Worker 04/18/24 Raj Galvin MD 100 [facility] 200 [place] [address] Nephrology 08/25/24 Ely Mesa [address] [place] [address] Thoracic Surgery 08/25/24 documented as of this encounter
--- OUTSIDE RECORDS SUMMARY | 2025-08-17 18:13 | XMS_ITS | Encounter Summary ---
Author Organization [employer] Address [address] [facility] 7t [place] [address] Care Team Providers Care Grain Trimmer Name Role Phone Morena Forte Primary Care Provider [phone] Jeremiah Humphrey Unavailable Raj Galvin MD Unavailable [phone] Unavailable Reason for Visit * Reason Onset Date Comments PT1 08/03/2023 Encounter Details Date Type Department Care Team ([facility] Contact Info) Description 08/03/2023 Telephone [facility] MED & PEDS [address] [place], [place] [phone] Morena Forte FNP [address] [place], [place] [phone] PT1 Social History Tobacco Use Types Packs/Day [...] 09/03 Time: 2 PM Visits: n/a Address: [address] [place] [address] Facility: [facility] primary care Wheel Chair: no Refining Engineer Needed: no lock up worker location confirmed: [address], [place] [address] documented in this encounter Plan of Treatment Upcoming Encounters Date Type Department Care Team ([facility] Contact Info) Description 08/24/2025 11:15 AM EST Office Visit [facility] MED & PEDS [address] [place] [address] Morena Forte FNP [address] [place] [address] documented as of this encounter Goals Goal [...] documented as of this encounter Care Teams Grain Trimmer Relationship Specialty Start Date End Date Morena Forte FNP [address] [place] [address] PCP - General Family Medicine 09/27/22 Jeremiah Humphrey Community Health Worker 04/18/24 Raj Galvin MD 100 [facility] 200 [place] [address] Nephrology 08/25/24 Ely Mesa [address] [place] [address] Thoracic Surgery 08/25/24 documented as of this encounter
--- OUTSIDE RECORDS SUMMARY | 2025-08-17 18:13 | XMS_ITS | Encounter Summary ---
Author Organization [employer] Address [address] [facility] 7t [place] [address] Care Team Providers Care Stationary Boiler Fireman Name Role Phone Morena Forte Primary Care Provider [phone] Jeremiah Humphrey Unavailable Raj Galvin MD Unavailable Ely Mesa Unavailable Reason for Visit * Reason Onset Date Comments Prior Authorization 01/01/2025 Encounter Details Date Type Department Care Team (Late st Contact Info) Description 01/01/2025 Telephone [facility] MEDICINE [address] [place] [address] Morena Forte FNP [address] [place], [place] [phone] Prior Authorization Social History Tobacco Use Types [...] [facility] MED & PEDS 505 [place] [address] Morena Forte FNP [address] [place] [address] documented as of this encounter Goals Goal [...] documented as of this encounter Care Teams Stationary Boiler Fireman Relationship Specialty Start Date End Date Morena Forte FNP [address] [place] [address] PCP - General Family Medicine 09/27/22 Jeremiah Humphrey Community Health Worker 04/18/24 Raj Galvin MD 100 [facility] 200 [place] [address] Nephrology 08/25/24 Ely Mesa [address] [place] [address] Thoracic Surgery 08/25/24 documented as of this encounter
--- OUTSIDE RECORDS SUMMARY | 2025-08-17 18:13 | XMS_ITS | Encounter Summary ---
Author Organization [employer] Address 75 [facility] 7t [place] [address] Care Team Providers Care Senior Brand Manager Name Role Phone Morena Forte Primary Care Provider [phone] eJremiah Humphrey Unavailable Raj Galvin MD Unavailable [phone] Ely Mesa Unavailable Reason for Visit * Reason Onset Date Comments Medication Question 02/23/2023 Other 02/23/2023 Encounter Details Date Type Department Care Team (Late st Contact Info) Description 02/23/2023 Telephone [facility] MEDICINE 230 [place] [address] Morena Forte FNP [address] [place], [place] [phone] Medication Question; Other Social History Tobacco Use [...] to inform PCP he is currently at [facility] since 02/20/23 admitted due to breathingtrouble. Patient is due to discharge today but has not yet. Patient is requesting a call back, in regards to medication questions. No other details provided. documented in this encounter Plan of Treatment Upcoming Encounters Date Type Department Care Team (Late st Contact Info) Description 08/24/2025 11:15 AM EST Office Visit [facility] MED & PEDS 505 [place] [address] Morena Forte FNP 505 [place] [address] documented as of this encounter Visit Diagnoses Not on filedocumented in this encounter Care Teams Senior Brand Manager Relationship Specialty Start Date End Date Morena Forte FNP [address] [place] [address] PCP - General Family Medicine 09/27/22 Jeremiah Humphrey Community Health Worker 04/18/24 Raj Galvin MD 100 [facility] 200 [place] [address] Nephrology 08/25/24 Ely Mesa [address] [place] [address] Thoracic Surgery 08/25/24 documented as of this encounter
--- OUTSIDE RECORDS SUMMARY | 2025-08-17 18:13 | XMS_ITS | Encounter Summary ---
Author Organization [employer] Address 75 [facility] 7t [place] [address] Care Team Providers Care Plant Health Care Technician Name Role Phone Morena Forte Primary Care Provider [phone] Jeremiah Humphrey Unavailable Raj Galvin MD Unavailable [phone] Ely Mesa Unavailable Reason for Visit * Reason Comments Med Refill Encounter Details Date Type Department Care Team ([facility] st Contact Info) Description 04/03/2024 Refill [facility] MED & PEDS 505 [place], [place] [phone] Morena Forte FNP 505 [place], [place] [phone] Severe obesity (CMS/HCC) Social History Tobacco Use [...] [facility] MED & PEDS [address] [place] [address] Morena Forte FNP 505 [place] [address] documented as of this encounter Goals Goal [...] documented as of this encounter Care Teams Plant Health Care Technician Relationship Specialty Start Date End Date Morena Forte FNP 230 [place] [address] PCP - General Family Medicine 09/27/22 Jeremiah Humphrey Community Health Worker 04/18/24 Raj Galvin MD 100 [facility] 200 [place] [phone] Nephrology 08/25/24 Ely Mesa [address] [place] [address] Thoracic Surgery 08/25/24 documented as of this encounter
--- OUTSIDE RECORDS SUMMARY | 2025-08-17 18:13 | XMS_ITS | Encounter Summary ---
Author Organization [employer] Address 75 [facility] 7t [place] [address] Care Team Providers Care Nuclear Weapons Specialist Name Role Phone Morena Forte Primary Care Provider [phone] Jeremiah Humphrey Unavailable Raj Galvin MD Unavailable [phone] Ely Mesa Unavailable Reason for Visit * Reason Onset Date Comments PT1 01/01/2025 Encounter Details Date Type Department Care Team (Late st Contact Info) Description 01/01/2025 Telephone [facility] MEDICINE 230 [place] [address] Morena Forte FNP [address] [place], [place] [phone] PT1 Social History Tobacco Use Types Packs/Day [...] Y/N: Yes Provider name or facility name: [facility] - [address] [place] [address] Escort needed: Y/N: No Do you have a wheelchair: Y/N: Yes If yes- Manual or electric: electric Visits: (2x monthly) Patient calling requesting PT1 Home Address verified: Y/N: Yes Provider name or facility name: [address] [place] [address] Escort needed: Y/N: No Do you have a wheelchair: Y/N: Yes If yes- Manual or electric: electric Visits: (2x monthly) Patient calling requesting PT1 Home Address verified: Y/N: Yes Provider name or facility name: [facility] - 230 [place] [address] Escort needed: Y/N: No Do you have a wheelchair: Y/N: Yes If yes- Manual or electric: electric Visits: (2x monthly) documented in this encounter Plan of Treatment Upcoming Encounters Date Type Department Care Team (Late st Contact Info) Description 08/24/2025 11:15 AM EST Office Visit [facility] MED & PEDS 505 [place] [address] Morena Forte FNP 505 [place] [address] documented as of this encounter Goals Goal [...] documented as of this encounter Care Teams Nuclear Weapons Specialist Relationship Specialty Start Date End Date Morena Forte FNP 230 [place] [address] PCP - General Family Medicine 09/27/22 Jeremiah Humphrey Community Health Worker 04/18/24 Raj Galvin MD 100 [facility] 200 [place] [address] Nephrology 08/25/24 Ely Mesa [address] [place] [address] Thoracic Surgery 08/25/24 documented as of this encounter
--- OUTSIDE RECORDS SUMMARY | 2025-08-17 18:13 | XMS_ITS | Encounter Summary ---
Author Organization [employer] Address 75 [facility] 7t [place] [address] Care Team Providers Care Air Quality Engineer Name Role Phone Morena Forte Primary Care Provider [phone] Jeremiah Humphrey Unavailable Raj Galvin MD Unavailable [phone] Ely Mesa Unavailable Reason for Visit * Reason Comments Med Refill Encounter Details Date Type Department Care Team (Late st Contact Info) Description 06/26/2025 Refill [facility] MEDICINE 230 [place] [address] Morena Forte FNP [address] [place], [place] [phone] Lower extremity edema Social History Tobacco Use [...] 11:15 AM EST Office Visit [facility] MED & PEDS 505 [place] [address] Morena Forte FNP 505 [place] [address] documented as of this encounter Goals Goal [...] documented as of this encounter Care Teams Air Quality Engineer Relationship Specialty Start Date End Date Morena Forte FNP [address] [place] [address] PCP - General Family Medicine 09/27/22 Jeremiah Humphrey Community Health Worker 04/18/24 Raj Galvin MD [address] [place] [phone] Nephrology 08/25/24 Ely Mesa [address] [place] [address] Thoracic Surgery 08/25/24 documented as of this encounter
--- OUTSIDE RECORDS SUMMARY | 2025-08-17 18:14 | XMS_ITS | Encounter Summary ---
Author Organization [employer] Address 75 [facility] 7t [place] [address] Care Team Providers Care Milling Machine Tender Name Role Phone Morena Forte Primary Care Provider [phone] Jeremiah Humphrey Unavailable Raj Galvin MD Unavailable Ely Mesa Unavailable Reason for Visit * Reason Onset Date Comments PT-1 01/25/2024 Encounter Details Date Type Department Care Team (Late st Contact Info) Description 01/25/2024 Telephone [facility] MEDICINE 230 [place] [address] Morena Forte FNP [address] [place], [place] [phone] PT-1 Social History Tobacco Use Types Packs/Day [...] Y/N: Yes Provider name or facility name: [facility] Facility Address: [address] [facility] Escort needed: Yes Do you have a wheelchair: Y/N: No If yes- Manual or electric: Uses Lopez Visits: 5 Monthly Patient calling requesting PT1 Home Address verified: Y/N: Yes Provider name or facility name: [facility]: Denise Carter Dmd Facility Address: [address] [place] [address] Escort needed: No Do you have a wheelchair: Y/N: No If yes- Manual or electric: Uses Lopez Visits: 3 monthly Patient calling requesting PT1 Home Address verified: Y/N: Yes Provider name or facility name: [facility] Facility Address: [address] [place] [address] Escort needed: Y/N: No Do you have a wheelchair: Y/N: No If yes- Manual or electric: Uses lopez Visits: 2 monthly Patient calling requesting PT1 Home Address verified: Y/N: Yes Provider name or facility name: [facility] Facility Address: 230 [facility] Escort needed: Y/N: No Do you have a wheelchair: Y/N: No If yes- Manual or electric: Uses Visits: Twice a month Patient calling requesting PT1 Home Address verified: Y/N: Yes Provider name or facility name: [facility] Facility Address: [address] [facility] Escort needed: Y/N: No Do you have a wheelchair: Y/N: No If yes- Manual or electric: Uses lopez Visits: 1 monthly documented in this encounter Plan of Treatment Upcoming Encounters Date Type Department Care Team ([facility] st Contact Info) Description 08/24/2025 11:15 AM EST Office Visit [facility] MED & PEDS 505 [place] [address] Morena Forte FNP 505 [place] [address] documented as of this encounter Goals Goal [...] documented as of this encounter Care Teams Milling Machine Tender Relationship Specialty Start Date End Date Morena Forte FNP 230 [place] [address] PCP - General Family Medicine 09/27/22 Jeremiah Humphrey Community Health Worker 04/18/24 Raj Galvin MD [address] [phone] Nephrology 08/25/24 Ely Mesa [address] [place] [address] Thoracic Surgery 08/25/24 documented as of this encounter
--- OUTSIDE RECORDS SUMMARY | 2025-08-17 18:14 | XMS_ITS | Encounter Summary ---
Author Organization [employer] Address 75 [facility] 7t [place] [address] Care Team Providers Care Emg Technician Name Role Phone Morena Forte Primary Care Provider [phone] Jeremiah Humphrey Unavailable Raj Galvin MD Unavailable [phone] Ely Mesa Unavailable Reason for Visit * Reason Onset Date Comments PT1 03/24/2024 Encounter Details Date Type Department Care Team (Late st Contact Info) Description 03/24/2024 Telephone [facility] MEDICINE 230 [place] [address] Morena Forte FNP [address] [place], [place] [phone] PT1 Social History Tobacco Use Types Packs/Day [...] name: Hemant [facility] D[facility] Facility Address: [address] [place] [address] Escort needed: Y/N: No Do you have a wheelchair: Y/N: No Cane If yes- Manual or electric: n/a Visits: n/a documented in this encounter Plan of Treatment Upcoming Encounters Date Type Department Care Team (Late st Contact Info) Description 08/24/2025 11:15 AM EST Office Visit [facility] MED & PEDS 505 [place] [address] Morena Forte FNP 505 [place] [address] documented as of this encounter Goals Goal [...] documented as of this encounter Care Teams Emg Technician Relationship Specialty Start Date End Date Morena Forte FNP 230 [place] [address] PCP - General Family Medicine 09/27/22 Jeremiah Humphrey Community Health Worker 04/18/24 Raj Galvin MD 100 [facility] 200 [place] [address] Nephrology 08/25/24 Ely Mesa [address] [place] [address] Thoracic Surgery 08/25/24 documented as of this encounter
--- OUTSIDE RECORDS SUMMARY | 2025-08-17 18:14 | XMS_ITS | Encounter Summary ---
Author Organization [employer] Address 75 [facility] 7t [place] [address] Care Team Providers Care Pillowcase Sewer Name Role Phone Morena Forte Primary Care Provider [phone] Jeremiah Humphrey Unavailable Raj Galvin MD Unavailable [phone] Ely Mesa Unavailable Reason for Visit * Reason Comments Med Refill Encounter Details Date Type Department Care Team ([facility] st Contact Info) Description 07/08/2025 Refill [facility] MED & PEDS 505 [place], [place] [phone] Morena Forte FNP 505 [place], [place] [phone] Social History Tobacco Use Types Packs/Day Years [...] Upcoming Encounters Date Type Department Care Team ([facility] st Contact Info) Description 08/24/2025 11:15 AM EST Office Visit [facility] MED & PEDS 505 [place] [address] Morena Forte, TERI 505 [place] [address] documented as of this encounter Goals Goal [...] documented as of this encounter Care Teams Pillowcase Sewer Relationship Specialty Start Date End Date Morena Forte FNP [address] [place] [address] PCP - General Family Medicine 09/27/22 Jeremiah Humphrey Community Health Worker 04/18/24 Raj Galvin MD [address] [place] [phone] Nephrology 08/25/24 Ely Mesa [address] [place] [address] Thoracic Surgery 08/25/24 documented as of this encounter
--- OUTSIDE RECORDS SUMMARY | 2025-08-17 18:14 | XMS_ITS | Encounter Summary ---
Author Organization [employer] Address 75 [facility] 7t [place] [address] Care Team Providers Care Religious Studies Professor Name Role Phone Morena Forte Primary Care Provider [phone] Jeremiah Humphrey Unavailable Raj Galvin MD Unavailable [phone] Ely Mesa Unavailable Reason for Visit * Reason Onset Date Comments Nurse Triage 11/11/2024 Encounter Details Date Type Department Care Team (Late st Contact Info) Description 11/11/2024 Telephone [facility] MEDICINE 230 [place] [address] Morena Forte FNP [address] [place] [address] Nurse Triage Social History Tobacco Use Types [...] states that he is in [facility] due to the pain increasing. RN advised pt to call [facility] when he is discharge and if [...] pt re: triage. 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 [phone] documented in this encounter Plan of Treatment Upcoming Encounters Date Type Department Care Team (Late st Contact Info) Description 08/24/2025 11:15 AM EST Office Visit [facility] MED & PEDS [address] [place] [address] Morena Forte FNP [address] [place] [address] documented as of this encounter Goals Goal [...] as of this encounter Care Teams Religious Studies Professor Relationship Specialty Start Date End Date Morena Forte FNP [address] [place] [address] PCP - General Family Medicine 09/27/22 Jeremiah Humphrey Community Health Worker 04/18/24 Raj Galvin MD [address] [address] Nephrology 08/25/24 Ely Mesa [address] [place] [address] Thoracic Surgery 08/25/24 documented as of this encounter
--- OUTSIDE RECORDS SUMMARY | 2025-08-17 18:14 | XMS_ITS | Encounter Summary ---
Author Organization [employer] Address 75 [facility] 7t [place] [address] Care Team Providers Care Network Support Engineer Name Role Phone Morena Forte Primary Care Provider [phone] Jeremiah Humphrey Unavailable Raj Galvin MD Unavailable [phone] Ely Mesa Unavailable Reason for Visit * Reason Comments Med Refill Encounter Details Date Type Department Care Team ([facility] st Contact Info) Description 2025 Refill [facility] MED & PEDS 505 [place], [place] [phone] Morena Forte FNP 505 [place], [place] [phone] Lower extremity edema Social History Tobacco Use [...] Description 08/24/2025 11:15 AM EST Office Visit [facility] MED & PEDS 505 [place] [address] Morena Forte FNP 505 [place] [address] documented as of this encounter Goals Goal [...] as of this encounter Care Teams Network Support Engineer Relationship Specialty Start Date End Date Morena Forte FNP 230 [place] [address] PCP - General Family Medicine 09/27/22 Jeremiah Humphrey Community Health Worker 04/18/24 Raj Galvin MD [address] [address] Nephrology 08/25/24 Ely Mesa [address] [place] [address] Thoracic Surgery 08/25/24 documented as of this encounter
== END 2025-08-17 14:46 | disposition home or self-care (01) ==
LOC: HO.LAB 14:45
PROVIDERS: PCP Registered Nurse; Visit Provider Internal Medicine Hypertension Specialist
DX: R80.9 Proteinuria, unspecified (principal)
CPT/HCPCS: 36415; 80048; 81001; 81003; 82570; 84156